=== PATIENT | female | born 1940 | race Caucasian/White ===

== ENCOUNTER 2022-02-06 10:40 | Emergency (ER) | payer MEDICARE, OTHER, SELFPAY ==
[2022-02-06 11:11] VITALS: BP 158/82; PULSE 75; RESP 24; TEMP 37.1; O2SAT 97; BMI 29.1
--- NOTE | 2022-02-06 11:29 | CRLHL7_ITS ---
For Patients: As a result of the Century Cures Act, medical imaging exams and procedure reports are released immediately into your electronic medical record. You may view this report before your referring provider. If you have questions, please contact your health care provider. Indication: Abdominal pain and constipation Technique: Two supine images of the abdomen Comparison: None Findings: Demineralized osseous structures. Degenerative changes of the spine. No significant calcifications. Nonspecific bowel gas pattern but no evidence of undo fecal retention, mechanical obstruction or obvious free air on this supine study Impression: Nonspecific bowel gas pattern no significant appearing findings by single view plain film radiography Dictated by Refugio Lima MD @ 02/06/2022 12:28:16 PM (Electronically Signed)
--- NOTE | 2022-02-06 11:32 | ED_ITS ---
HPI - Abdominal Pain General Chief Complaint: Abdominal Pain Stated Complaint: Bowel blockage, pain Time Seen by Provider: 02/06/22 11:21 Source: patient, family and RN notes reviewed History of Present Illness HPI narrative: 81-year-old woman presenting to the emergency department with complaint of increasing abdominal pain. She is accompanied by her . Had a right total knee replacement 3 weeks ago. She has been taking oxycodone. Has begun to have very small bowel movements over the last 4 days with increasing pain over the last 3 days. She would note pain actually is in the lower abdomen and she thinks she might have a urinary traction infection as well. She describes a burning pain in the lower abdomen. She is nauseated which she could vomit. She has tried a myriad bowel aids. Does not normally struggle with constipation. She has tried senna products, MiraLax, suppositories... She quit taking oxycodone yesterday. Does not feel she has increased pain. Asked about fever, she says she never gets a fever just sores in her mouth. She can not describe any exacerbating or relieving factors to her pain. She is restless and clearly very uncomfortable with pain which makes interview a little more challenging. Related Data Home Medications Medication Instructions Recorded Confirmed ondansetron HCl 4 mg tablet mg 02/06/22 oxycodone 5 mg tablet mg 02/06/22 potassium chloride 20 mEq meq PO 02/06/22 tablet,extended release(part/cryst) Previous Rx's Medication Instructions Recorded ondansetron HCl 4 mg tablet 4 mg PO DAILY PRN nausea and 02/06/22 vomiting #15 tabs Allergies Allergy/AdvReac Type Severity Reaction Status Date / Time acetaminophen [From Percocet] Allergy Mild itchy Verified 02/06/22 11:21 oxycodone [From Percocet] Allergy Mild itchy Verified 02/06/22 11:21 Review of Systems Status of ROS Reports: 10 or more systems reviewed and unremarkable except as noted in History and below [facility] Social History Smoking Status: Current every day smoker What tobacco products do you use: cigarettes Do you use any of these nicotine containing products: None Second hand tobacco smoke exposure: No How often do you have a drink containing alcohol: monthly or less How many standard drinks containing alcohol do you have on a typical day: 1 or 2 How often do you have six or more drinks on one occasion: Never AUDIT-C Alcohol total score: 1 Non-prescribed substance use: denies use Exam Narrative: Exam Narrative: She is pleasant. Appears younger than stated age. Distracted by pain. She shaking/trembling in apparent discomfort. Oropharynx is moist. There is a small cold sore the angle of her right side mouth. Neck is supple. Breathing easily and lungs appear to be clear. Cardiovascular with regular rate and rhythm. Abdomen with diminished bowel sounds. Is a little tender in the left upper abdomen. More tender across the low abdomen. No masses palpable. Abdomen is soft. There is no flank pain. Lower extremities are with mild dependent edema. The right knee looks to be healing very well withoutinflammatory changes. Const: Vital Signs, click to edit/add: Vital Signs - 24 hr 02/06/22 11:11 02/06/22 12:30 02/06/22 15:00 Temperature 98.7 F Pulse Rate [Left P ulse Oximeter] 75 68 69 Respiratory Rate 24 Blood Pressure [Le ft Upper Arm] 158/82 H 152/66 H 146/71 H Pulse Oximetry 97 96 97 Oxygen Delivery Me thod Room Air Room Air Room Air Documenting provider has reviewed patient's vital signs: yes Course Course Hospital Course: appears there may be more than constipation going on here. Will obtain labs. IV to be placed. Fluids and urinalysis. Providing pain medication. Abdominal x-ray with nonspecific bowel pattern and some stool but not convincing as a major source of pain as described. Reevaluation(s) Reevaluation #1: Overall improved. Able to sleep. Consultations Consultation #1: Spoke with OBGYN on-call with question of over the counter therapies that might alleviate vaginal symptoms in particular. Vital Signs Vital signs: Initial Vital Signs Temperature 98.7 F 02/06/22 11:11 Temperature Source Temporal Artery Scan 02/06/22 11:11 Pulse Rate 75 02/06/22 11:11 Pulse Rhythm 02/06/22 11:11 Respiratory Rate 24 02/06/22 11:11 Blood Pressure 158/82 H 02/06/22 11:11 Blood Pressure Mean 107 02/06/22 11:11 Blood Pressure Position Sitting 02/06/22 11:11 Pulse Oximetry 97 02/06/22 11:11 Oxygen Delivery Method 02/06/22 11:11 Vital Signs Temperature 98.7 F 02/06/22 11:11 Pulse Rate 75 02/06/22 11:11 Respiratory Rate 24 02/06/22 11:11 Blood Pressure 158/82 H 02/06/22 11:11 Pulse Oximetry 97 02/06/22 11:11 Oxygen Delivery Method 02/06/22 11:11 Temperature 98.7 F 02/06/22 11:11 Pulse Rate 69 02/06/22 15:00 Respiratory Rate 24 02/06/22 11:11 Blood Pressure 146/71 H 02/06/22 15:00 Pulse Oximetry 97 02/06/22 15:00 Oxygen Delivery Method 02/06/22 15:00 MDM - Abdominal Pain MDM Narrative Medical decision making narrative: Relatively normal labs. She in further questions describes more vaginal area burning. Has been thinking that maybe had a yeast infection though does not describe any vaginal discharge. Given degree of discomfort I would think that BV might be more likely. Proceeded with wet prep collection with nursing director of sales and marketing. This was extremely uncomfortable/painful for Ms. Cole. Vaginal mucosa did not look particularly atrophic but was definitely dry and collection produced a rather dry swab which ultimately was negative. Review again medications and complaints and wondering if perhaps the Vistaril that she has been taking with opiates has contributed to these symptoms, particularly vaginally, i.e. dryness bladder scan was minimal residual on post-void labs unremarkable with sl elev crp Medical Records Attestation: I reviewed the patient's medical records. Lab Data Attestation: I reviewed the patient's lab results. Labs: Lab Results 02/06/22 02/06/22 02/06/22 Range/Units 11:43 12:05 12:05 WBC 5.49 (4.50-11.00) K/uL RBC 3.92 L (4.00-5.20) m/uL Hgb 12.2 (12.0-16.0) gm/dL Hct 36.7 (33.0-51.0) % MCV 94 (80-100) fL MCH 31 (26-34) pg MCHC 33 (32-36) gm/dL RDW Coeff of Shira 12.4 (11.5-15.5) % Plt Count 337 (140-440) K/uL Neut % (Auto) 60.4 (42.0-72.0) % Lymph % (Auto) 28.1 (20-44) % [place] % (Auto) 9.3 (0.0-11.0) % Eos % (Auto) 1.8 (0.0-7.0) % Baso % (Auto) 0.4 (0.0-3.0) % Neut # (Auto) 3.32 (1.7-7.0) K/uL Lymph # (Auto) 1.54 (0.90-2.90) K/uL [place] # (Auto) 0.50 (0.00-0.90) K/UL Eos # (Auto) 0.10 (0.00-0.50) K/uL Baso # (Auto) 0.02 (0.00-0.30) K/uL Abs Immat Gran (auto) 0.00 (0.00-0.30) K/uL Sodium 134 L (135-149) mmol/L Potassium 3.4 L (3.6-5.1) mmol/L Chloride 97 (96-114) mmol/L Carbon Dioxide 29 (20-32) mmol/L BUN 10 (7-30) mg/dL Creatinine 0.9 (0.5-1.5) mg/dL Estimated Creat Clear 34.90 Estimated GFR 64 ml/min Glucose 96 (60-115) mg/dL Calcium 9.6 (8.4-10.6) mg/dL Total Bilirubin 1.0 (0.1-1.5) mg/dL AST 26 (12-35) U/L ALT 16 (4-35) U/L Alkaline Phosphatase 117 (40-150) U/L C-Reactive Protein 1.4 H (0.5-1.0) mg/dL Total Protein 6.6 (6.0-8.3) g/dL Albumin 4.1 (3.3-5.0) g/dL Urine Color Yellow (Yellow) Urine Appearance Clear (Clear) Urine pH 7.5 (5.0-8.5) Ur Specific [place] 1.020 (1.000-1.030) Urine Protein Negative (Negative) Urine Glucose (UA) Negative (Negative) Urine Ketones Negative (Negative) Urine Blood Trace-intact A (Negative) Urine Nitrite Negative (Negative) Urine Bilirubin Negative (Negative) Urine Urobilinogen 0.2 (0.2-1.0) Ur Leukocyte Esterase Negative (Negative) Urine RBC 0-2 (0-2) Urine WBC 2-5 (0-5) Ur Squamous Epith Cells Moderate A (None-Few) Urine Bacteria None (None) Vaginal Trichomonas (None Seen) Vaginal Yeast (None Seen) Vaginal Clue Cells (None Seen) 02/06/22 Range/Units 13:54 WBC (4.50-11.00) K/uL RBC (4.00-5.20) m/uL Hgb (12.0-16.0) gm/dL Hct (33.0-51.0) % MCV (80-100) fL MCH (26-34) pg MCHC (32-36) gm/dL RDW Coeff of Shira (11.5-15.5) % Plt Count (140-440) K/uL Neut % (Auto) (42.0-72.0) % Lymph % (Auto) (20-44) % [place] % (Auto) (0.0-11.0) % Eos % (Auto) (0.0-7.0) % Baso % (Auto) (0.0-3.0) % Neut # (Auto) (1.7-7.0) K/uL Lymph # (Auto) (0.90-2.90) K/uL [place] # (Auto) (0.00-0.90) K/UL Eos # (Auto) (0.00-0.50) K/uL Baso # (Auto) (0.00-0.30) K/uL Abs Immat Gran (auto) (0.00-0.30) K/uL Sodium (135-149) mmol/L Potassium (3.6-5.1) mmol/L Chloride (96-114) mmol/L Carbon Dioxide (20-32) mmol/L BUN (7-30) mg/dL Creatinine (0.5-1.5) mg/dL Estimated Creat Clear Estimated GFR ml/min Glucose (60-115) mg/dL Calcium (8.4-10.6) mg/dL Total Bilirubin (0.1-1.5) mg/dL AST (12-35) U/L ALT (4-35) U/L Alkaline Phosphatase (40-150) U/L C-Reactive Protein (0.5-1.0) mg/dL Total Protein (6.0-8.3) g/dL Albumin (3.3-5.0) g/dL Urine Color (Yellow) Urine Appearance (Clear) Urine pH (5.0-8.5) Ur Specific [place] (1.000-1.030) Urine Protein (Negative) Urine Glucose (UA) (Negative) Urine Ketones (Negative) Urine Blood (Negative) Urine Nitrite (Negative) Urine Bilirubin (Negative) Urine Urobilinogen (0.2-1.0) Ur Leukocyte Esterase (Negative) Urine RBC (0-2) Urine WBC (0-5) Ur Squamous Epith Cells (None-Few) Urine Bacteria (None) Vaginal Trichomonas No Trichomonas Seen (None Seen) Vaginal Yeast No Yeast Seen (None Seen) Vaginal Clue Cells No Clue Cells Seen (None Seen) Discharge Plan Discharge Clinical Impression: Vaginitis Patient Disposition: Home w/ Parent or Adult Condition: Improved Additional Instructions: Focus on hydration. It sounds like you have all you need to continue with management of your bowels. You might be mildly constipated. For further bowel cleanout, in addition to which have already been doing, could drink 1/2-1 bottle of magnesium citrate and repeat the next day if you do not have a significant result. You can take oxycodone still but consider avoiding Vistaril/hydroxyzine as this might be creating some of your vaginal problem. If you take oxycodone I would pair that with a senna containing product. Recommended vaginal product after discussing with OBGYN, is Refresh. This is also available [id number]. For uncontrolled pain, repeated vomiting, associated fever, you can return. Prescriptions: New ondansetron HCl 4 mg tablet 4 mg PO DAILY PRN (Reason: nausea and vomiting) Qty: 15 0RF No Action ondansetron HCl 4 mg tablet Label Comments: TAKE ONE TO TWO TABLETS BY MOUTH EVERY 8 HOURS NEEDED FOR NAUSEA potassium chloride 20 mEq tablet,ER particles/crystals PO Label Comments: TAKE ONE TABLET BY MOUTH EVERY DAY oxycodone 5 mg tablet Label Comments: TAKE 1 TO 2 TABLETS BY MOUTH 4 TO 6 HOURS NEEDED FOR PAIN. MAX 6 TABS/DAY Stand Alone Forms: [facility]
[2022-02-06 12:06] LABS: Appearance Urine Clear (Clear); Bilirubin Urine Negative (Negative); Blood Urine Trace-intact (Negative); Color Urine Yellow (Yellow); Glucose Urine Negative (Negative); Ketones Urine Negative (Negative); Leukocyte Esterase Urine Negative (Negative); Nitrite Urine Negative (Negative); Protein Urine Negative (Negative); Urobilinogen Urine 0.2 (0.2-1.0); pH Urine 7.5 (5.0-8.5)
[2022-02-06] MEDS: 0.9 % SODIUM CHLORIDE 1000 ml 1,000 ML IV (12:18)
[2022-02-06 12:20] LABS: Basophils Absolute Auto 0.02 K/uL (0.00-0.30); Basophils Percent Auto 0.4 % (0.0-3.0); Eosinophils Percent Auto 1.8 % (0.0-7.0); Hematocrit 36.7 % (33.0-51.0); Hemoglobin* 12.2 gm/dL (12.0-16.0); Lymphocytes Absolute Auto 1.54 K/uL (0.90-2.90); Lymphocytes Percent Auto 28.1 % (20-44); Mean Corpuscular HGB Conc 33 gm/dL (32-36); Mean Corpuscular Hemoglobin 31 pg (26-34); Mean Corpuscular Volume 94 fL (80-100); Monocytes Percent Auto 9.3 % (0.0-11.0); Neutrophils Absolute Auto 3.32 K/uL (1.7-7.0); Neutrophils Percent Auto 60.4 % (42.0-72.0); Platelet Count* 337 K/uL (140-440); RDW Coefficient of Variation % 12.4 % (11.5-15.5); Red Blood Count 3.92 m/uL (4.00-5.20); White Blood Count* 5.49 K/uL (4.50-11.00)
[2022-02-06] MEDS: ONDANSETRON 2 MG/ML inj 4 MG IVP (12:20)
[2022-02-06 12:22] LABS: Slide Review Reflex No
[2022-02-06 12:30] VITALS: BP 152/66; PULSE 68; O2SAT 96
[2022-02-06] MEDS: HYDROmorphone 0.5 mg/0.5 ml inj IVP (12:30)
[2022-02-06 12:43] LABS: RBC Urine 0-2 (0-2)
[2022-02-06 12:44] LABS: Squamous Epithelial Cell Urine Moderate (None-Few)
[2022-02-06 13:00] LABS: Albumin* 4.1 g/dL (3.3-5.0); Chloride* 97 mmol/L (96-114); Sodium* 134 mmol/L (135-149)
[2022-02-06 13:01] LABS: Potassium* 3.4 mmol/L (3.6-5.1)
[2022-02-06 13:03] LABS: Creatinine* 0.9 mg/dL (0.5-1.5); Estimated Glomerular Filt Rate 64 ml/min
[2022-02-06 13:04] LABS: Alanine Aminotransferase* 16 U/L (4-35); Alkaline Phosphatase* 117 U/L (40-150); Aspartate Amino Transferase* 26 U/L (12-35); Blood Urea Nitrogen* 10 mg/dL (7-30); Calcium* 9.6 mg/dL (8.4-10.6); Carbon Dioxide* 29 mmol/L (20-32); Glucose* 96 mg/dL (60-115); Total Protein* 6.6 g/dL (6.0-8.3)
[2022-02-06 13:06] LABS: C Reactive Protein* 1.4 mg/dL (0.5-1.0)
[2022-02-06 14:13] LABS: Clue Cells No Clue Cells Seen (None Seen); Trichomonas No Trichomonas Seen (None Seen); Yeast No Yeast Seen (None Seen)
[2022-02-06 15:00] VITALS: BP 146/71; PULSE 69; O2SAT 97
== END 2022-02-06 15:15 | disposition home or self-care (01) ==
PROVIDERS: Emergency Provider Family Medicine
DX: N76.0 Acute vaginitis (principal)
CPT/HCPCS: 36415; 74019; 80053; 81001; 85025; 86140; 87210; 96361; 96374; 96375; 99284; J1170; J2405; J7030

== ENCOUNTER 2022-02-13 10:10 | Emergency (ER) | payer MEDICARE, OTHER, SELFPAY ==
[2022-02-13 10:26] VITALS: PULSE 73; RESP 20; TEMP 36.9; O2SAT 97; BMI 28.7
[2022-02-13 10:53] LABS: Appearance Urine Clear (Clear); Bilirubin Urine Negative (Negative); Blood Urine Trace-intact (Negative); Color Urine Yellow (Yellow); Glucose Urine Negative (Negative); Ketones Urine Negative (Negative); Leukocyte Esterase Urine Negative (Negative); Nitrite Urine Negative (Negative); Protein Urine Negative (Negative); Specific Gravity Urine 1.015 (1.000-1.030); Urobilinogen Urine 0.2 (0.2-1.0); pH Urine 8.5 (5.0-8.5)
--- NOTE | 2022-02-13 10:53 | ED_ITS ---
HPI - General Adult General Time Seen by Provider: 10:53 Date Seen: 02/13/22 Chief complaint: Abdominal Pain Stated complaint: burning sensation in stomach Time Seen by Provider: 02/13/22 10:19 Source: patient and family History of Present Illness HPI narrative: Jennifer is a 81-year-old female past medical history includes cholecystectomy, PUD presents emergency department with family with abdominal pain. Patient was seen here for the same on 02/06, discharge diagnosis of vaginitis, she is not currently on any medications, she continues to have burning lower abdominal pain from her navel down to her suprapubic region. She has had associated nausea but no vomiting, she is eating last but drinking water. She denies any fevers or chills, no myalgias or arthralgias, patient has increased urinary frequency and dysuria, she denies any vaginal bleeding or vaginal discharge. There is no radiation of her pain. Pain has been constant the last week. He had a normal bowel movement this morning, she did not have any blood in the stool or diarrhea. No sick contacts. Family was more concerned that it could be an ulcer. Related Data Home Medications Medication Instructions Recorded Confirmed ondansetron HCl 4 mg tablet mg 02/06/22 oxycodone 5 mg tablet mg 02/06/22 potassium chloride 20 mEq meq PO 02/06/22 tablet,extended release(part/cryst) Previous Rx's Medication Instructions Recorded ondansetron HCl 4 mg tablet 4 mg PO DAILY PRN nausea and 02/06/22 vomiting #15 tabs Allergies Allergy/AdvReac Type Severity Reaction Status Date / Time acetaminophen [From Percocet] Allergy Mild itchy Verified 02/13/22 12:14 oxycodone [From Percocet] Allergy Mild itchy Verified 02/13/22 12:14 Review of Systems Status of ROS: Reports: 10 or more systems reviewed and unremarkable except as noted in History and below PFSH PFSH Social History Smoking Status: Current every day smoker What tobacco products do you use: cigarettes Smoking packs per day: 0.5 Smoking cigarettes per day: 10.0 Years smoked: 69 Smoking pack-years: 34.50 Do you use any of these nicotine containing products: None Second hand tobacco smoke exposure: No How often do you have a drink containing alcohol: monthly or less How many standard drinks containing alcohol do you have on a typical day: 1 or 2 How often do you have six or more drinks on one occasion: Never AUDIT-C Alcohol total score: 1 Non-prescribed substance use: denies use service: No Exam Narrative: Exam Narrative: General: No obvious distress sitting comfortably HEENT: Pupils equal round reactive to light, extraocular muscles intact, head is atraumatic Neck: Supple full range of motion Heart: Normal sinus rhythm S1-S2 Abdomen: Mild tenderness to palpation the lower abdomen and suprapubic region, bowel sounds hyperactive, no guarding no rebound Muscle skeletal: +5 strength upper lower extremities Neuro: Alert awake and oriented x3, gait within normal limits Const: Vital Signs, click to edit/add: Vital Signs - 24 hr 02/13/22 10:26 02/13/22 11:30 02/13/22 12:00 Temperature 98.5 F Pulse Rate [Pulse Oximeter] 73 59 L 67 Respiratory Rate 20 Blood Pressure [Le ft Upper Arm] 156/60 H 129/68 Pulse Oximetry 97 95 96 Oxygen Delivery Me thod Room Air 02/13/22 12:30 Temperature Pulse Rate [Pulse Oximeter] Respiratory Rate Blood Pressure [Le ft Upper Arm] 150/80 H Pulse Oximetry Oxygen Delivery Me thod Course Course Hospital Course: 10:30 AM: AIDET performed. vitals are stable. Workup will include IV peripheral, 500 mL bolus, 15 mg IV Toradol for pain, will obtain labs including CBC, CRP, CMP, lipase and urinalysis, patient had an XR abdomen decubitus and upright previously which showed a nonspecific bowel gas pattern. Likely obtain CT imaging. Patient and family in agreement Vital Signs Vital signs: Initial Vital Signs Temperature 98.5 F 02/13/22 10:26 Temperature Source Temporal Artery Scan 02/13/22 10:26 Pulse Rate 73 02/13/22 10:26 Pulse Rhythm 02/13/22 10:26 Respiratory Rate 20 02/13/22 10:26 Pulse Oximetry 97 02/13/22 10:26 Oxygen Delivery Method 02/13/22 10:26 Vital Signs Temperature 98.5 F 02/13/22 10:26 Pulse Rate 73 02/13/22 10:26 Respiratory Rate 20 02/13/22 10:26 Pulse Oximetry 97 02/13/22 10:26 Oxygen Delivery Method 02/13/22 10:26 Temperature 98.5 F 02/13/22 10:26 Pulse Rate 67 02/13/22 12:00 Respiratory Rate 20 02/13/22 10:26 Blood Pressure 150/80 H 02/13/22 12:30 Pulse Oximetry 96 02/13/22 12:00 Oxygen Delivery Method 02/13/22 10:26 Medical Decision Making Lab Data Labs: Lab Results 02/13/22 02/13/22 02/13/22 Range/Units 10:45 11:00 11:00 WBC 6.81 (4.50-11.00) K/uL RBC 4.13 (4.00-5.20) m/uL Hgb 12.9 (12.0-16.0) gm/dL Hct 38.8 (33.0-51.0) % MCV 94 (80-100) fL MCH 31 (26-34) pg MCHC 33 (32-36) gm/dL RDW Coeff of Shira 12.5 (11.5-15.5) % Plt Count 252 (140-440) K/uL Neut % (Auto) 65.1 (42.0-72.0) % Lymph % (Auto) 24.5 (20-44) % [place] % (Auto) 8.2 (0.0-11.0) % Eos % (Auto) 1.8 (0.0-7.0) % Baso % (Auto) 0.3 (0.0-3.0) % Neut # (Auto) 4.43 (1.7-7.0) K/uL Lymph # (Auto) 1.67 (0.90-2.90) K/uL [place] # (Auto) 0.60 (0.00-0.90) K/UL Eos # (Auto) 0.12 (0.00-0.50) K/uL Baso # (Auto) 0.02 (0.00-0.30) K/uL Abs Immat Gran (auto) 0.01 (0.00-0.30) K/uL Sodium 136 (135-149) mmol/L Potassium 4.0 (3.6-5.1) mmol/L Chloride 102 (96-114) mmol/L Carbon Dioxide 27 (20-32) mmol/L BUN 8 (7-30) mg/dL Creatinine 0.7 (0.5-1.5) mg/dL Estimated Creat Clear 34.90 Estimated GFR 87 ml/min Glucose 131 H (60-115) mg/dL Calcium 9.6 (8.4-10.6) mg/dL Total Bilirubin 0.8 (0.1-1.5) mg/dL AST 24 (12-35) U/L ALT 16 (4-35) U/L Alkaline Phosphatase 106 (40-150) U/L C-Reactive Protein 0.6 (0.5-1.0) mg/dL Total Protein 6.9 (6.0-8.3) g/dL Albumin 4.4 (3.3-5.0) g/dL Lipase 166 (23-300) U/L Urine Color Yellow (Yellow) Urine Appearance Clear (Clear) Urine pH 8.5 (5.0-8.5) Ur Specific [place] 1.015 (1.000-1.030) Urine Protein Negative (Negative) Urine Glucose (UA) Negative (Negative) Urine Ketones Negative (Negative) Urine Blood Trace-intact A (Negative) Urine Nitrite Negative (Negative) Urine Bilirubin Negative (Negative) Urine Urobilinogen 0.2 (0.2-1.0) Ur Leukocyte Esterase Negative (Negative) Urine RBC 0-2 (0-2) Urine WBC 0-2 (0-5) Ur Squamous Epith Cells Few (None-Few) Urine Bacteria None (None) Discharge Plan Discharge Clinical Impression: Thickened endometrium, Abdominal pain, lower Patient Disposition: Home, Self-Care Condition: Improved Instructions: Abdominal Pain (ED) Additional Instructions: Follow up appointment with Dr. Stuart at [facility] on Friday, February 18, 2022 at 8:15am, with arrival time at 8am. Prescriptions: No Action ondansetron HCl 4 mg tablet Label Comments: TAKE ONE TO TWO TABLETS BY MOUTH EVERY 8 HOURS NEEDED FOR NAUSEA potassium chloride 20 mEq tablet,ER particles/crystals PO Label Comments: TAKE ONE TABLET BY MOUTH EVERY DAY oxycodone 5 mg tablet Label Comments: TAKE 1 TO 2 TABLETS BY MOUTH 4 TO 6 HOURS NEEDED FOR PAIN. MAX 6 TABS/DAY ondansetron HCl 4 mg tablet 4 mg PO DAILY PRN (Reason: nausea and vomiting) Qty: 15 0RF Follow Up/Referrals: Provider,Not a Local [Primary Care Provider] - Stand Alone Forms: MyHealth Info Instructions
[2022-02-13 11:13] LABS: Basophils Absolute Auto 0.02 K/uL (0.00-0.30); Basophils Percent Auto 0.3 % (0.0-3.0); Eosinophils Absolute Auto 0.12 K/uL (0.00-0.50); Eosinophils Percent Auto 1.8 % (0.0-7.0); Hematocrit 38.8 % (33.0-51.0); Hemoglobin* 12.9 gm/dL (12.0-16.0); Immature Granulocytes Abs Auto 0.01 K/uL (0.00-0.30); Lymphocytes Absolute Auto 1.67 K/uL (0.90-2.90); Lymphocytes Percent Auto 24.5 % (20-44); Mean Corpuscular HGB Conc 33 gm/dL (32-36); Mean Corpuscular Hemoglobin 31 pg (26-34); Mean Corpuscular Volume 94 fL (80-100); Monocytes Percent Auto 8.2 % (0.0-11.0); Neutrophils Absolute Auto 4.43 K/uL (1.7-7.0); Neutrophils Percent Auto 65.1 % (42.0-72.0); Platelet Count* 252 K/uL (140-440); RDW Coefficient of Variation % 12.5 % (11.5-15.5); Red Blood Count 4.13 m/uL (4.00-5.20); White Blood Count* 6.81 K/uL (4.50-11.00)
[2022-02-13] MEDS: 0.9 % SODIUM CHLORIDE 500 ML 500 ML IV (11:15)
[2022-02-13] MEDS: KETOROLAC 15 MG/ML inj IVP (11:15)
[2022-02-13 11:18] LABS: RBC Urine 0-2 (0-2); WBC Urine 0-2 (0-5)
[2022-02-13 11:19] LABS: Squamous Epithelial Cell Urine Few (None-Few)
[2022-02-13 11:30] VITALS: BP 156/60; PULSE 59; O2SAT 95
[2022-02-13 11:30] LABS: Albumin* 4.4 g/dL (3.3-5.0); Chloride* 102 mmol/L (96-114); Sodium* 136 mmol/L (135-149)
[2022-02-13 11:32] LABS: Bilirubin Total* 0.8 mg/dL (0.1-1.5); Creatinine* 0.7 mg/dL (0.5-1.5); Estimated Glomerular Filt Rate 87 ml/min
[2022-02-13 11:33] LABS: Alkaline Phosphatase* 106 U/L (40-150); Aspartate Amino Transferase* 24 U/L (12-35); Blood Urea Nitrogen* 8 mg/dL (7-30); Carbon Dioxide* 27 mmol/L (20-32); Lipase* 166 U/L (23-300); Total Protein* 6.9 g/dL (6.0-8.3)
[2022-02-13 11:34] LABS: Alanine Aminotransferase* 16 U/L (4-35); Calcium* 9.6 mg/dL (8.4-10.6); Glucose* 131 mg/dL (60-115)
[2022-02-13 11:36] LABS: C Reactive Protein* 0.6 mg/dL (0.5-1.0)
--- OUTSIDE RECORDS SUMMARY | 2022-02-13 11:38 | XMS_ITS | Encounter Summary ---
:1940 Author Organization [facility] Address [address] [place] [id number] Care Team Providers Name Role Phone Francesco Bonner MD Unavailable Unavailable Anup Evans MD Primary Care Provider [facility] Unavailable [phone] Reason for Visit Reason Comments Chest tightness Encounter Details Date Type Department Care Team Description 11/20/2021 Office Visit [facility] Tomás Mendez G, Chest shruti n, unspecified type (Primary Dx); Health Internal ASCVD (arteriosclerotic cardiovascular d isease); [address] Coni fowler hypertension; [facility] 104 Anxiety disorder, unspecified type [address] [place] [address] Internal Med [facility] [address] [place] [id number] Social History Tobacco Use Types Packs/Day Years Used Date Smoking Tobacco: Every Day Cigarettes 1 60 Smokeless Tobacco: Never Alcohol Use Standard Drinks/Week Comments Yes 0 (1 standard drink = 0.6 oz pure alcoho l) Occasional Alcohol Habits Answer Date Recorded How often do you have a drink containing alcohol? Not asked How many drinks containing alcohol do you have on a typical Not asked day when you are drinking? How often do you have six or more drinks on one occasion? No t asked Comment: occasional 05/31/2009 Sex Assigned at Date Recorded Not on file COVID-19 Exposure Response Date Recorded In the last 10 days, have you been in contact with No / Unsu re 11/20/2021 8:57 AM CDT someone who was confirmed or suspected to have Coronavirus/COVID-19? documented as of this encounter Last Filed Vital Signs Vital Sign Reading Time Taken Comments Blood Pressure 124/72 11/20/2021 9:01 AM CDT Pulse 94 11/20/2021 9:01 AM CDT Temperature 36.9 ??C (98.4 ??F) 11/20/2021 9:01 AM CDT Respiratory Rate - - Oxygen Saturation 96% 11/20/2021 9:01 AM CDT Inhaled Oxygen Concentration - - Weight 75.3 kg (166 lb 1.6 oz) 11/20/2021 9:01 AM CDT Height - - Body Mass Index 30.88 05/23/2021 3:39 PM [employer] documented in this encounter Progress Notes Tomás Mendez MD - 11/20/2021 9:15 AM CDT [facility] CHIEF COMPLAINT: Chest pain HPI: This is a 81 y.o. female here for the above. Pt has had chest tightness and discomfort intermittently; denies any cp/sob currently or on exertion. H/o CAD and wants to make sure she's ok. Also states her BP was high at home but notes it has been ok here and taking meds as prescribed. Has been under more stress lately with family medical illnesses as well as her passing away last summer. No cough/fevers/ab pain/vomiting. Past medical history has been reviewed and updated in [facility] REVIEW OF SYSTEMS: 10-point review of systems is negative other than those listed in the HPI. PHYSICAL EXAM: Blood pressure 124/72, pulse 94, temperature 98.4 ??F (36.9 ??C), temperature source Tympanic, weight 75.3 kg (166 lb 1.6 oz), SpO2 96 %, not currently . General: No acute distress HEENT: Extraocular movements intact Cardiovascular: Regular rate and rhythm Lungs: Clear to auscultation bilaterally Abdomen: Soft/non-tender/non-distended Neurological: Normal coordination and gait Psych: Normal mood and affect Musculoskeletal: No pitting peripheral edema or tenderness ASSESSMENT: This is a 81 y.o. female with chest pain, CAD, htn, anxiety PLAN: 1. Chest pain- possibly due to situational anxiety/stress but could check an EKG or stress test given CAD history, however, pt declined any EKG today. Monitor si/sx and f/u 1-2 wks PRN or to the ER if si/sx worsening 2. CAD- continue to monitor si/sx as above and consider stress testing, EKG if not improving or to the ER if si/sx worsening 3. Htn- monitor BP at home and f/u if remains persistently elevated 4. Anxiety- situational and could go on a trial of zoloft if no improvement. F/u 1-2 wks PRN Tomás Mendez MD 11/20/2021 documented in this encounter Plan of Treatment Not on filedocumented as of this encounter Visit Diagnoses Diagnosis Chest pain, unspecified type - Primary ASCVD (arteriosclerotic cardiovascular d isease) Unspecified cardiovascular disease Essential hypertension Unspecified essential hypertension Anxiety disorder, unspecified type documented in this encounter Care Teams Pharmacist In Charge Owner Relationship Specialty Start Date End Date Anup Evans MD PCP - General Internal Medicine 02/23/[address] [place] [address] Dr Pérez [facility] [place] [address] [facility] PCP - Primary Care Clinic [address] [place] [address] DR PÉREZ [address] [place], [place] [address] [address] Francesco Bonner MD 08/11/13 documented as of this encounter
--- OUTSIDE RECORDS SUMMARY | 2022-02-13 11:38 | XMS_ITS | Encounter Summary ---
:1940 Author Organization [facility] Address [address] [place] [id number] Care Team Providers Name Role Phone Francesco Bonner MD Unavailable Unavailable Anup Evans MD Primary Care Provider [facility] [phone] Reason for Referral (Routine) - Open Specialty Diagnoses / Procedures Referred By Contact Refer red To Contact Diagnoses Pulmonary nodules Ground glass opacity present on imaging of lung Anup Evans MD Procedures CT CHEST LOW DOSE W/O CON [address] [place] [address] Dr Pérez [facility] Internal [place], [place] [address] Referral ID Status Reason Start Date Expiration Date Visits Requ ested Visits Authorized [id number] Open 10/07/2021 1 1 Reason for Visit (Routine) - Open Specialty Diagnoses / Procedures Referred By Contact Refer red To Contact Diagnoses Pulmonary nodules Ground glass opacity present on imaging of lung Anup Evans MD Procedures CT CHEST LOW DOSE W/O CON [address] [place] [address] Dr Berman Internal [place], [place] [address] Referral ID Status Reason Start Date Expiration Date Visits Requ ested Visits Authorized [id number] Open 10/07/2021 1 1 Encounter Details Date Type Department Care Team Description 10/02/2021 Hospital Encounter [facility] [address] [place] [address] Social History Tobacco Use Types Packs/Day Years [...] Assigned at Date Recorded Not on file documented as of this encounter Medications at Time of Discharge Medication Sig Dispensed Refills Start Date End Date lidocaine-prilocaine Apply to skin twice 30 g 1 2021 (EMLA) 2.5-2.5 % Top a day. To the knees cream cream as needed potassium chloride Take 1 tablet (20 90 tablet 3 05/23/2021 (K-DUR) 20 mEq oral mEq) by mouth once extended release tablet daily. rosuvastatin (CRESTOR) 20 Take 1 tablet (20 90 tablet 3 mg oral tablet mg) by mouth once daily. triamterene-hydrochloroth TAKE 1 TABLET BY 90 tablet 3 05/03 iazide (MAXZIDE) 37.5-25 MOUTH EVERY DAY mg oral tablet albuterol sulfate Nebulize 3 mL (0.63 1 Box 3 2 01/09/2022 (PROVENTIL;VENTOLIN) 0.63 mg) three times a mg/3 mL Inhl nebulizer day. solution documented as of this encounter Plan of Treatment Not on filedocumented as of this encounter Procedures Procedure Name Priority Date/Time Associated Diagnosis Comme nts CT CHEST LOW DOSE Routine 10/02/2021 9:13 AM Pulmonary n odules Results for this W/O CON CDT Ground glass opacity procedu re are in present on imaging the resul ts of lung section. documented in this encounter Results CT (MDIP) CHEST LUNG NODULE - FOLLOW-UP (10/02/2021 9:13 AM CDT) Anatomical Region Laterality Modality Chest Computed Tomography Specimen (Source) Anatomical Collection Method Collection Time Re ceived Time Location / / Volume Laterality 10/02/2021 9:19 AM CDT Impressions 10/02/2021 9:22 AM CDT IMPRESSION: 1. ??Previously noted ill-defined nodula r opacities at the posterior right lung apex and groundglass opacity at the left lung base have resolved. 2. ??Indeterminate groundglass opacities in the right upper lobe, as described above, are similar to the previous study of 07/05/2021. 3. ??Tiny nodule at the lateral left moriah g base is unchanged from 07/05/2021. 4. ??No new lung opacities or nodules ar e seen. REPORT SIGNED BY DR. Gordy Payne Narrative 10/02/2021 9:22 AM CDT EXAM: CT CHEST LOW DOSE (without contrast) ?? DATE: 10/02/2021 9:03 AM COMPARISON: 07/05/2021 CLINICAL DATA: Lung opacities and nodule s. ADDITIONAL CLINICAL DATA: R91.8 Other no nspecific abnormal finding of lung field R91.8 Other nonspecific abnormal finding of lung field TECHNIQUE: A low-dose unenhanced CT scan of the thorax was performed. ??Specifically, thin-section contiguous transaxial images were obtained through the thorax. ??Coronal reformations were also obtaine d through the thorax. ??No intravenous c ontrast was given. Reduced mA and kV were used to lower the radiation dose absorbed by the patient. FINDINGS: Previously noted ill-defined nodularity at the posterolateral right lung apex has resolved. Previously noted groundglass opacity laterally at the left lung base has resolved. Indeterminate groundglass opacity barrel inspector omedially in the right upper lobe measures 14 x 10 mm. This measured 16 x 10 mm on the previous exam. Indeterminate groundglass opacity at the posterolateral medi al right lung apex now measures 10 x 9 m m, previously 12 x 6 mm. 2 mm nodule at the lateral left lung base is unchanged. No new lung opacities or nodules are identified. Limited assessment of the mediastinal, h ilar, and vascular structures without intravenous contrast. Small right paratracheal lymph nodes are stable. Coronary artery calcifications again indicate coronar y artery disease. Atherosclerotic change s are again seen in a nondilated thoracic aorta. Procedure Note Gordy Payne MD - 10/02/2021Forma tting of this note might be different from the original. EXAM: CT CHEST LOW DOSE (without contras t) DATE: 10/02/2021 9:03 AM COMPARISON: 07/05/2021 CLINICAL DATA: Lung opacities and nodule s. ADDITIONAL CLINICAL DATA: R91.8 Other no nspecific abnormal finding of lung field R91.8 Other nonspecific abnormal finding of lung field TECHNIQUE: A low-dose unenhanced CT scan of the thorax was performed. Specifically, thin-section contiguous transaxial images were obtained through the thorax. Coronal reformations were also obtained through the thorax. No intravenous contrast was give n. Reduced mA and kV were used to lower the radiation dose absorbed by the patient. FINDINGS: Previously noted ill-defined nodularity at the posterolateral right lung apex has resolved. Previously noted groundglass opacity laterally at the left lung base has resolved. Indeterminate groundglass opacity barrel inspector omedially in the right upper lobe measures 14 x 10 mm. This measured 16 x 10 mm on the previous exam. Indeterminate groundglass opacity at the posterolateral medial right lung apex now measures 10 x 9 mm, previously 12 x 6 mm. 2 mm nodule at the lateral left lung base is unchanged. No new lung opacities or nodules are identified. Limited assessment of the mediastinal, h ilar, and vascular structures without intravenous contrast. Small right paratracheal lymph nodes are stable. Coronary artery calcifications again indicate coronary artery disease. Atherosclerotic changes are aga in seen in a nondilated thoracic aorta. IMPRESSION IMPRESSION: 1. Previously noted ill-defined nodular opacities at the posterior right lung apex and groundglass opacity at the left lung base have resolved. 2. Indeterminate groundglass opacities i n the right upper lobe, as described above, are similar to the previous study of 07/05/2021. 3. Tiny nodule at the lateral left lung base is unchanged from 07/05/2021. 4. No new lung opacities or nodules are seen. REPORT SIGNED BY DR. 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
--- OUTSIDE RECORDS SUMMARY | 2022-02-13 11:38 | XMS_ITS | Encounter Summary ---
:1940 Author Organization [facility] Address [address] [place] [address] Care Team Providers Name Role Phone Francesco Bonner MD Unavailable Unavailable Yuli Watkins MD Primary Care Provider [facility] Unavailable [phone] Reason for Visit Reason Comments Pre Op exam Encounter Details Date Type Department Care Team Description 01/09/2022 Office Visit [facility] Yuli Watkins MD Preop examination (Primary Dx); Internal Medicine - [address] [place] [address] Dr Jos hodgson of right knee; [facility] 104 Essential hypertension; [address] [place] [address] Internal [facility] icine Hypercholesterolemia; [facility] [address] [place], [place] Asymmetric blood pressures; [place], [place] [phone] Tobacco use disorder; [phone] (Wo rk) PAD (peripheral artery disease) ([facility]) Social History Tobacco Use Types Packs/Day Years Used Date Smoking Tobacco: Every Day Cigarettes Smokeless Tobacco: Never Tobacco Cessation: Ready to Quit: Not As ked; Counseling Given: Not Answered Comments: 1/4 PPD Alcohol Use Standard Drinks/Week Comments Yes 0 (1 standard drink = 0.6 oz pure alcoho l) Infrequent Alcohol Habits Answer Date Recorded How often do you have a drink containing alcohol? Not asked How many drinks containing alcohol do you have on a typical Not asked day when you are drinking? How often do you have six or more drinks on one occasion? No t asked Comment: Infrequent 01/09/2022 Sex Assigned at Date Recorded Not on file COVID-19 Exposure Response Date Recorded In the last 10 days, have you been in contact with No / Unsu re 01/09/2022 9:26 AM CDT someone who was confirmed or suspected to have Coronavirus/COVID-19? documented as of this encounter Last Filed Vital Signs Vital Sign Reading Time Taken Comments Blood Pressure 128/74 01/09/2022 9:34 AM CDT Pulse 80 01/09/2022 9:34 AM CDT Temperature 36.7 ??C (98.1 ??F) 01/09/2022 9:34 AM CDT Respiratory Rate - - Oxygen Saturation - - Inhaled Oxygen Concentration - - Weight 74 kg (163 lb 1.6 oz) 01/09/2022 9:34 AM CDT Height 157.5 cm (5' 2) 01/09/2022 9:34 AM CDT Body Mass Index 29.83 01/09/2022 9:34 AM CDT documented in this encounter H&P Notes Yuli Watkins MD - 01/09/2022 9:45 AM CDT Images from the original note were not included. Preoperative History and Physical Examination Date of Exam: 01/09/22 Proposed Surgery: Right total knee arthroplasty Surgeon: Harley Date of Surgery: 01/14/2022 Location of Surgery: [facility] History: The patient is seen in preoperative evaluation for the above procedure. She has significantarthritis involving the right knee. She has been quite limited due to pain. Review of systems: The patient has had no chest pains. There have been no respiratory concerns. There have been no fevers, chills, or sweats. Other than what has been noted above, the comprehensive review of systems is otherwise negative. ACTIVE PROBLEM LIST: Diagnosis Osteopenia 07/24 S-1.0 H-2.0 (Frax 16%, 7%) Subclavian arterial stenosis (HCC) 06/25/21 US: Moderate to severe (>50%) RIGHT subclavian artery stenosis (difficult visualization). DDD (degenerative disc disease), lumbar ASCVD (arteriosclerotic cardiovascular disease) 05/07/17 CORONARY ANATOMY: Right Dominant. LEFT MAIN: The left main was minimally diseased and bifurcated into the left anterior descending and circumflex. LEFT ANTERIOR DESCENDING: Diffuse mixed calcified and noncalcified plaque throughout the proximal and mid left anterior descending with mild stenosis. The remainder of the left anterior descending was normal. FIRST DIAGONAL: Patent, small. SECOND DIAGONAL: Patent, small. THIRD DIAGONAL: Mildly diseased, large. CIRCUMFLEX: Mild proximal disease. Mild disease prior to a large patent first obtuse marginal, which was the major vessel to the lateral wall. The AV groove circumflex was small afterwards. RIGHT CORONARY ARTERY: Dominant. Mild proximal through distal nonobstructive disease. Small patent RPDA. Larger patent RPL branches. The calcium score was 188.5 (left anterior descending 89.4, circumflex 20.9, right coronary artery 78.2). This placed the patient in the 67th percentile Pulmonary nodules 05/07/17 5 x 3 mm pulmonary nodule in the inferior right middle lobe (new from 09/13) 12/02/17 CT There are two 7 mm groundglass opacities in the right upper lobe which are new since priorCT. The 12 and 13 mm groundglass opacities in the right upper lobe are grossly unchanged compared toprior exam in retrospect. There are scattered 2-3 mm solid pulmonary nodules seen in both lungs which are relatively stable. 03/10/18 groundglass opacities persist 06/18/18 Each of the pulmonary nodules and groundglass opacities reported on the prior examinations are stable when compared to exams dating back to December 02, 2017.. One or more of these subtle groundglass opacities were not definitely seen in 2013. Based on published guidelines yearly follow-up to confirm stability for 4 years is recommended. 07/05/21 CT: New 6 x 8 mm groundglass opacity in the left lower lobe. This may be infectious or inflammatory. 10/02/21 CT: Previously noted ill-defined nodular opacities at the posterior right lung apex and groundglass opacity at the left lung base have resolved. Indeterminate groundglass opacities in the right upper lobe, as described above, are similar to the previous study of 07/05/2021. Tiny nodule at the lateral left lung base is unchanged from 07/05/2021. No new lung opacities or nodules are seen. Hypercholesterolemia Asymmetric blood pressures L>R (Check BP on left arm) PAD (peripheral artery disease) ([facility]) 12/13 Study reveals the following: There is a differential blood pressure between the patient's leftbrachial artery and right brachial artery with a pressure of 143 on the left compared to 89 on the right. ABIs at the level of the thigh, calf, ankle, over the posterior tibial artery and dorsalis pedis are normal bilaterally. ABIs do not decrease with exercise suggesting normal arterial supply to both lower extremities. Essential hypertension Tobacco use disorder Past Surgical History: Procedure Laterality Date HX BACK SURGERY Right 2014 L5-S1 hemilaminectomy + discectomy HX BREAST SURGERY Right 1996 Cyst resection HX CHOLECYSTECTOMY 1971 HX LUMBAR LAMINECTOMY 2016 L5-S1 Family History Problem Relation Name Age of Onset Diabetes Mother Stroke Mother Heart Disease Father Alcohol Abuse Father Alcohol Abuse Sister No Known Problems Sister No Known Problems Sister No Known Problems Sister No Known Problems Sister No Known Problems Sister Other Disease Brother Suicide Kidney Cancer Brother Cancer Brother No Known Problems Brother No Known Problems Brother Breast Cancer Daughter Cancer Daughter Kidney Disease Daughter Other Disease Son Hepatitis Heart Disease Son No Known Problems Son No Known Problems Son No Known Problems Son Social History Tobacco Use Smoking status: Every Day Types: Cigarettes Smokeless tobacco: Never Tobacco comments: 06/05 PPD Substance Use Topics Alcohol use: Yes Comment: Infrequent Current Outpatient Medications: Medication Sig lidocaine-prilocaine (EMLA) 2.5-2.5 % Top cream cream Apply to skin twice a day. To the knees as needed potassium chloride (K-DUR) 20 mEq oral extended release tablet Take 1 tablet (20 mEq) by mouth oncedaily. rosuvastatin (CRESTOR) 20 mg oral tablet Take 1 tablet (20 mg) by mouth once daily. triamterene-hydrochlorothiazide (MAXZIDE) 37.5-25 mg oral tablet TAKE 1 TABLET BY MOUTH EVERY DAY Allergies Allergen Reactions Atorvastatin Percocet [Oxycodone-Acetaminophen] Itching Severe itching PHYSICAL EXAM: BP 128/74 Pulse 80 Temp 98.1 ??F (36.7 ??C) (Oral) Ht 1.575 m (5' 2) Wt 74 kg (163 lb 1.6 oz) BMI 29.83 kg/m?? General: The patient is pleasant and interactive. Speech is fluent. HEENT exam is unremarkable. Heart tones are regular. There are no significant cardiac murmurs. There are no carotid bruits. Pedal pulses are palpable. Lung sounds are clear. There is normal respiratory effort. Abdomen is benign with positive bowel sounds. There is no significant lower extremity edema. Visualized skin is clear. There are no focal neurologic findings. ECG 01/09/22 IMPRESSION: 1. Preop examination 2. Arthritis of right knee 3. Essential hypertension 4. Hypercholesterolemia 5. Asymmetric blood pressures 6. Tobacco use disorder 7. PAD (peripheral artery disease) ([facility]) PLAN: The patient has significant arthritis involving the right knee requiring surgery. She will be undergoing total knee arthroplasty. She has hypertension. Blood pressure is well controlled. She will continue same antihypertensive medication. She has hypercholesterolemia. She has been doing well with rosuv astatin. She will continue same antihyperlipidemic medication. She has been experiencing no cardiac or respiratory concerns. She continues to use tobacco products. She smokes 1/4 pack of cigarettes perday. She is encouraged to pursue tobacco cessation. She has peripheral artery disease notable with subclavian arterial stenosis and she has asymmetric blood pressures. Is recommended to check blood pressure in the left upper extremity. ECG obtained today demonstrates normal sinus rhythm with a ventricular rate of 71. Intervals and axis are within normal limits. There are no ST-T wave abnormalities. She will abstain from aspirin, aspirin containing products, NSAIDs, and fish oil prior to the procedure. Laboratory studies obtained include CBC, electrolytes, BUN/creatinine, and COVID test. I see no contraindication and she is medically optimized to proceed with procedure as scheduled. documented in this encounter Plan of Treatment Not on filedocumented as of this encounter Procedures Procedure Name Priority Date/Time Associated Diagnosis Comme nts SARS-COV-2, PCR 2 DAY Routine 01/09/2022 10:24 Preop examinati on Results for this TAT ([facility]) AM CDT procedure are in the results section. SARS-COV-2 PCR Routine 01/09/2022 10:24 Preop examination Resu lts for this ([facility]) AM CDT procedure are i n the results section. ELECTROLYTE PANEL Routine 01/09/2022 10:24 Preop examination R esults for this ([facility]) AM CDT procedure are i n the results section. CBC/PLATELET, NO Routine 01/09/2022 10:24 Preop examination Re sults for this DIFFERENTIAL AM CDT procedure are i n ([facility]) the results section. BUN/CREATININE Routine 01/09/2022 10:24 Preop examination Resu lts for this ([facility]) AM CDT procedure are i n the results section. EKG WITH Routine 01/09/2022 10:09 Preop examination Result s for this INTERPRETATION/REPORT AM CDT proced ure are in the results section. documented in this encounter Results SARS-COV-2, PCR 2 DAY TAT ([facility]) (01/09/2022 10:24 AM CDT) Analysis Performed At [facility] logist Time Signature SARS-CoV-2 PCR Performed 01/10/2022 [facility] OF 2 Day TAT 11:06 PM CDT PHY[facility] ([facility]) Specimen Anatomical Collection Method Collection Time Receive d Time (Source) Location / / Volume Laterality Nasal 01/09/2022 10:24 01/09/2022 AM CDT 10:25 AM CDT Narrative [facility] - 01/10/2022 11:06 PM CDT Performed at: ??02 - [address] ??[id number] [place] Lifeguard: Elia Grove MD, Phone: ?? [phone] Yuli Watkins MD [facility] ORDERABLES Performing Organization Address City/State/ZIP Code Phon e Number [facility] [place] [address] [place] [address] SARS-COV-2 PCR ([facility]) (01/09/2022 10:24 AM CDT) [facility] gist Method Time Signature SARS-CoV-2, Not Detected Not Detected 01/10/2022 [facility] [place]AHI ([facility]) 11:06 PM CDT [facility] Comment: This nucleic acid amplification test was developed and its performance characteristics determined by [facility] Rosa padgett. Nucleic acid amplification tests include RT-PCR and T MA. This test has not been FDA cleared or approved. This test has b een authorized by FDA under an Emergency Use Authorization (EUA). Th is test is only authorized for the duration of time the declaration that circumstances exist justifying the authorization of the [facility] use of in vitro diagnostic tests for detection of SARS-C oV-2 virus and/or diagnosis of COVID-19 infection under section 564( b)(1) of the Act, 21 U.S.C. 360bbb-3(b) (1), unless the authorizatio n is terminated or revoked sooner. When diagnostic testing is negative, the possibility of a false negative result should be considered in the context of a patient's recent exposures and the presence of cli nical signs and symptoms consistent with COVID-19. An individual without symptoms of COVID-19 and who is not shedding SARS-CoV-2 virus would expect to have a negative (not detected) result in this a ssay. Specimen Anatomical Collection Method Collection Time Receive d Time (Source) Location / / Volume Laterality Nasal 01/09/2022 10:24 01/09/2022 AM CDT 10:25 AM CDT Narrative [facility] - 01/10/2022 11:06 PM CDT Performed at: ??01 - [facility] ??[id number] [place]uard: Elia Grove MD, Phone: ?? [phone] Yuli Watkins MD [facility] ORDERABLES Performing Organization Address City/State/ZIP Code Phon e Number [facility] [place] [address] [place] [address] [phone] (ABNORMAL) BUN/CREATININE ([facility]) (01/09/2022 10:24 AM CDT) athologist Signature BUN ([facility]) 12 8 - 27 01/10/2022 [facility] mg/dL 7:13 AM CDT [facility] Creatinine 0.97 0.57 - 01/10/2022 [facility] OF ([facility]) 1.00 mg/dL 7:13 AM CDT [facility] eGFR ([facility]) 59 (L) >59 01/10/2022 [facility] OF mL/min/1.7 7:13 AM CDT [facility] 3 BUN/Creatinine 12 12 - 28 01/10/2022 [facility] OF Ratio ([facility]) 7:13 AM CDT [facility] Specimen Anatomical Collection Method / Collection Time Recei lisa Time (Source) Location / Volume Laterality Blood Venipuncture / 01/09/2022 10:24 2 Unknown AM CDT 10:25 AM CDT Narrative [facility] - 01/10/2022 7:13 AM CDT Performed at: ??01 - [facility] [address] ??[id number] [place]eguard: Elia Grove MD, Phone: ?? [phone] Yuli Watkins MD [facility] ORDERABLES Performing Organization Address City/[facility]/ZIP Code Phon e Number [facility] [place] [address] [place] [address] [phone] ELECTROLYTE PANEL ([facility]) (01/09/2022 10:24 AM CDT) P athologist Signature Sodium 140 134 - 144 01/10/2022 [facility] OF ([facility]) mmol/L 7:13 AM CDT [facility] Potassium 4.4 3.5 - 5.2 01/10/2022 [facility] OF ([facility]) mmol/L 7:13 AM CDT [facility] Chloride 101 96 - 106 01/10/2022 [facility] OF ([facility]) mmol/L 7:13 AM CDT [facility] Carbon Dioxide 24 20 - 29 01/10/2022 [facility] OF ([facility]) mmol/L 7:13 AM CDT [facility] Specimen Anatomical Collection Method / Collection Time Recei lisa Time (Source) Location / Volume Laterality Blood Venipuncture / 01/09/2022 10:24 2 Unknown AM CDT 10:25 AM CDT Narrative [facility] - 01/10/2022 7:13 AM CDT Performed at: ??01 - [facility] [address] ??[id number] [place]uard: Elia Grove MD, Phone: ?? [phone] Yuli Watkins MD [facility] ORDERABLES Performing Organization Address City/[facility]/ZIP Code Phon e Number [facility] [place] [address] [place] [address] CBC/PLATELET, NO DIFFERENTIAL ([facility]) (01/09/2022 10:24 AM CDT) P athologist Signature WBC ([facility]) 6.5 3.4 - 10.8 01/10/2022 [facility] OF x10E3/uL 7:13 AM CDT [facility] RBC ([facility]) 4.66 3.77 - 01/10/2022 [facility] OF 5.28 7:13 AM CDT [facility] x10E6/uL Hemoglobin 15.0 11.1 - 01/10/2022 [facility] OF ([facility]) 15.9 g/dL 7:13 AM CDT [facility] Hematocrit 45.0 34.0 - 01/10/2022 [facility] OF ([facility]) 46.6 % 7:13 AM CDT [facility] MCV ([facility]) 97 79 - 97 fL 01/10/2022 [facility] OF 7:13 AM CDT [facility] MCH ([facility]) 32.2 26.6 - 01/10/2022 [facility] OF 33.0 pg 7:13 AM CDT [facility] MCHC ([facility]) 33.3 31.5 - 01/10/2022 [facility] OF 35.7 g/dL 7:13 AM CDT [facility] RDW ([facility]) 12.3 11.7 - 01/10/2022 [facility] OF 15.4 % 7:13 AM CDT [facility] Platelets 202 150 - 450 01/10/2022 [facility] OF ([facility]) x10E3/uL 7:13 AM CDT [facility] Specimen Anatomical Collection Method / Collection Time Recei lisa Time (Source) Location / Volume Laterality Blood Venipuncture / 01/09/2022 10:24 2 Unknown AM CDT 10:25 AM CDT Narrative [facility] - 01/10/2022 7:13 AM CDT Performed at: ??01 - [facility] [address] ??[id number] [place]ard: Elia Grove MD, Phone: ?? [phone] Yuli Watkins MD [facility] ORDERABLES Performing Organization Address City/State/ZIP Code Phon e Number [facility] [place] [address] [place] [address] EKG WITH INTERPRETATION/REPORT (01/09/2022 10:09 AM CDT) P athologist Signature EKG [facility] Comment: ? [facility] ? Test Date: ?2022-01-09 Pat Name: ? ALEXCarlos KIRK ?Department: ?? [facility] ?Room: ? Gender: ? F ?Logging Assistant: ?? MZ : ?1940 ? Requested By: YULI WATKINS MD Order Number: [id number] ?Reading MD: ?? Yuli Watkins MD ? Measurements Intervals ?[place] ? Rate: ? 71 ? P: ?63 DE: ? 183 ?QRS: ?-12 QRSD: ? 99 ? T: ?46 QT: ? 381 ? QTc: ?416 ? Interpretive Statements SINUS RHYTHM Compared to ECG 04/10/2021 No significant change Electronically Signed On 01-09-2022 10:13 :54 CDT by Yuli Watkins MD Specimen (Source) Anatomical Collection Method Collection Time Re ceived Time Location / / Volume Laterality 01/09/2022 10:09 AM CDT Narrative This result has an attachment that is no t available. Yuli Watkins MD CARDIO ORDERABLE Performing Organization Address City/State/ZIP Code Phon e Number I JARROD [address] [facility] No [place] [address] documented in this encounter Visit Diagnoses Diagnosis Preop examination - Primary Preoperative examination, unspecified Arthritis of right knee Unspecified arthropathy, lower leg Essential hypertension Unspecified essential hypertension Hypercholesterolemia Pure hypercholesterolemia Asymmetric blood pressures Other abnormal clinical finding Tobacco use disorder PAD (peripheral artery disease) (HCC) Peripheral vascular disease, unspecified documented in this encounter Care Teams Stage Hand Relationship Specialty Start Date End Date Yuli Watkins MD PCP - General Internal Medicine 02/23/[address] [place] [address] Dr Pérez [address] Internal Medicine [place] [address] Chauncey Bill PCP - [facility] [address] [place] [address] DR PÉREZ [address] [place] [address] Francesco Bonner MD 08/11/13 documented as of this encounter
--- OUTSIDE RECORDS SUMMARY | 2022-02-13 11:38 | XMS_ITS | Encounter Summary ---
:1940 Author Organization [facility] Address [address] [place] [address] Care Team Providers Name Role Phone Francesco Bonner MD Unavailable Unavailable Anup Evans MD Primary Care Provider [facility] [phone] Encounter Details Date Type Department Care Team Description 11/16/2021 Travel Social History Tobacco Use Types Packs/Day Years [...] in contact with No / Unsu re 11/16/2021 11:36 AM CDT someone who was confirmed or suspected to have Coronavirus/COVID-19? documented as of this encounter Plan of Treatment Not on filedocumented as of this encounter Visit Diagnoses Not on filedocumented in this encounter Care Teams Boomswing Operator Relationship Specialty Start Date End Date Anup Evans MD PCP - General Internal Medicine 02/23/[address] [place] [address] Dr Pérez [facility] [place] [address] Chauncey Bill PCP - Primary Care Clinic [address] [place] [address] [place] [address] Francesco Bonner MD 08/11/13 documented as of this encounter
--- OUTSIDE RECORDS SUMMARY | 2022-02-13 11:38 | XMS_ITS | Clinical Summary ---
:1940 Author Organization [email or web address] Address [place] [address] Care Team Providers Name Role Phone Anup Evans MD Primary Care Provider Allergies Active Allergy Reactions Severity Noted Date Comments Atorvastatin Edema Low 02/04/2017 Oxycodone-Acetaminophen Itching Medium 05/06/2016 Christina re itching Unknown-Follow Up *Unknown - Follow up Unknown 05/28/2006 un known oral pain med Needed (Include Details needed , un sure of the In Comments) reaction pt sta letty NO issues with medications she is aware of Medications Medication Sig Dispensed Refills Start End Date Status Date triamterene-hydro Take 1 tablet by 0 Active chlorothiazide, mouth every 37.5-25 mg, morning. (MAXZIDE-25) 37.5-25 mg tablet potassium Take 20 mEq by 0 Activ e chloride (K-DUR) mouth once daily. 20 mEq Extended-Release tablet rosuvastatin Take 20 mg by 0 Act josé luis (CRESTOR) 20 mg mouth at bedtime. tablet acetaminophen Take 2 Tablets 100 Tablet 1 Active (TYLENOL EXTRA (1,000 mg) by 2 STRGTH) 500 mg mouth 3 times tabletIndications daily. Max : S/P total knee acetaminophen arthroplasty, dose: 4000mg in right 24 hrs. aspirin (ECOTRIN) Take 1 Tablet (81 60 Tablet 0 Active 81 mg enteric mg) by mouth 2 2 coated times daily with tabletIndications meals. : Deep vein thrombosis (DVT) prophylaxis prescribed at discharge oxyCODONE Take 1-2 Tablets 35 Tablet 0 Act josé luis (ROXICODONE) 5 mg (5-10 mg) by 2 immediate release mouth every 4 tabletIndications hours if needed : S/P total knee for Pain (For arthroplasty, moderate pain. right Hold dose if sedated. up to 2, tid prn x 7 days). sennosides-docusa Take 1-2 Tablets 50 Tablet 1 Active te (SENOKOT S) by mouth 2 times 2 (8.6-50 mg) daily. tabletIndications : Constipation due to opioid therapy HYDROcodone-aceta Take 1 to 2 40 tablet 0 01/16/20 Discontinued minophen, 5-325 tablets by mouth 6 22 (*IP mg, (NORCO) per every 4 hours if Discontinued) tabletIndications needed for : S/P lumbar moderate to laminectomy severe pain. Max acetaminophen dose: 4000 mg in 24 hrs. Active Problems Problem Noted Date Essential hypertension 01/15/2022 Overview: Triamterene and hydrochlorothiazide Hyperlipidemia 01/15/2022 Overview: Rosuvastatin Osteoarthritis of right knee 01/10/2022 Overview: 01/14/2022 Right Total Knee Arthroplasty Subclavian artery stenosis, right 12/01/2013 Lumbar disc herniation 09/03/2013 Encounters Date Type Specialty Care Team Description 01/15/2022 Hospital Encounter Moises Souza MD 01/14/2022 Anesthesia Event Brendan Gallegos MD [place], Merle [place], [facility] 01/14/2022 Surgery Moises Souza Right Total Kn ee MD Poli Arthroplasty 01/14/2022 - Hospital Encounter Moises Souza S/P tota l knee arthroplasty, right (Primary Dx); 01/15/2022 MD Poli Deep vein thrombosis (DVT) prophylaxis p rescribed at discharge; Josafat Garduno Constipation d ue to opioid therapy MD Emre Cardona Lon Bradley, MD 01/14/2022 Travel from Last 3 Months Family History Medical History Relation Name Comments Diabetes Mother Stroke Mother Relation Name Status Comments Mother Social History Tobacco Use Types Packs/Day Years Used Date Current Every Day Smoker Cigarettes 1 50 Smokeless Tobacco: Never Used Alcohol Use Standard Drinks/Week Comments No 0 (1 standard drink = 0.6 oz pure alcoho l) Sex Assigned at Date Recorded Not on file COVID-19 Exposure Response Date Recorded In the last 10 days, have you been in contact with No / Unsu re 01/14/2022 5:28 AM CDT someone who was confirmed or suspected to have Coronavirus/COVID-19? Obstetrics History Last Filed Vital Signs Vital Sign Reading Time Taken Comments Blood Pressure 138/53 01/15/2022 12:40 PM CDT Pulse 73 01/15/2022 12:40 PM CDT Temperature 36.7 ??C (98.1 ??F) 01/15/2022 12:40 PM CDT Respiratory Rate 16 01/15/2022 12:40 PM CDT Oxygen Saturation 94% 01/15/2022 12:40 PM CDT Inhaled Oxygen Concentration - - Weight 73.9 kg (163 lb) 01/10/2022 1:25 PM CDT Height 157.5 cm (5' 2) 01/10/2022 1:25 PM CDT Body Mass Index 29.81 01/10/2022 1:25 PM CDT Plan of Treatment Health Maintenance Due Date Last Done Comments COVID-19 vaccine series (#1) 1940 Tdap 1951 Depression screening for age 12+ 1952 Tetanus booster 1960 Zoster (shingles) series for age 50+ (1 of 2) 1990 DEXA/DXA scan for age 65+ 2005 Pneumococcal series for age 65+ (1 - PCV) 2005 BMI (ht and wt on same day) for age 18+ 04/08/2017 04/08/20 16 Influenza for age 65+ 01/31/2022 Medical Devices Implanted Type [employer] Device Shelf Model / Identifier Expiration Date Ser ial / Lot Triathlon X3 Tibial Bearing Insert - Cs Right: fitogram 10/02/2026 [id number] / Implanted: Qty: 1 on 01/14/2022 by Moises Souza MD at [facility] Knee [employer]opaedics / [id number] Procedures Procedure Name Priority Date/Time Associated Diagnosis Comme nts BASIC METABOLIC Early AM 01/15/2022 5:56 Results f or this PANEL AM CDT procedure are i n the results section. HEMOGLOBIN Early AM 01/15/2022 5:56 Results for this AM CDT procedure are i n the results section. SPINAL BLOCK Routine 01/14/2022 7:31 Results for this AM CDT procedure are i n the results section. [facility] ANES BLOCK INJ Routine 01/14/2022 7:21 Resul ts for this PERIPH AM CDT procedure are i n the results section. [facility] ANES US GUIDE Routine 01/14/2022 7:21 Result s for this AM CDT procedure are i n the results section. [facility] NDL PR10 Routine 01/14/2022 7:21 Results for this AM CDT procedure are i n the results section. ARTHROPLASTY KNEE 01/14/2022 6:51 osteoarthritis of th e AM CDT right knee Case Notes 23 hour outpatient stay Eric Boggs notified 12/13/2021 Special Needs Chart made H&P & COVID-[address] Anup Evans 01/09/22 [facility] [phone] GLUCOSE METER Timed 01/14/2022 6:05 AM CDT Resu lts for this procedure are in the results sec tion. SCAN-CARDIAC STRIP 01/14/2022 12:00 AM CDT Results for this procedure are in the results sec tion. from Last 3 Months Results (ABNORMAL) Hemoglobin - Daily x 1 (01/15/2022 5:56 AM CDT) athologist Signature HEMOGLOBIN 11.0 (L) 12.0 - 01/15/2022 [facility] 16.0 g/dL 6:12 AM CDT [facility] MCV 95 80 - 100 01/15/2022 [facility] fL 6:12 AM CDT [facility] Specimen Anatomical Collection Method Collection Time Receive d Time (Source) Location / / Volume Laterality Blood BLOOD SPECIMEN / Butterfly / 01/15/2022 5:56 AM 01/15 6:08 Unknown Unknown CDT AM CDT Narrative [facility] [place] [facility] - 01/15/2022 6:12 AM CDT Call surgeon if hemoglobin less than 8. Stephania GIVENS HEMATOLOGY Performing Organization Address City/State/ZIP Code Phon e Number [facility] [address] [place] [address] [facility] (ABNORMAL) Basic Metabolic Panel (01/15/2022 5:56 AM CDT) P athologist Signature SODIUM 137 135 - 145 01/15/2022 [facility] mmol/L 6:28 AM CDT [facility] POTASSIUM 4.0 3.5 - 5.0 01/15/2022 [facility] mmol/L 6:28 AM CDT [facility] CHLORIDE 106 98 - 110 01/15/2022 [facility] mmol/L 6:28 AM CDT [facility] CO2,TOTAL 25 21 - 31 01/15/2022 [facility] mmol/L 6:28 AM CDT [facility] ANION GAP 6 5 - 18 01/15/2022 [facility] 6:28 AM CDT [facility] GLUCOSE 110 (H) 65 - 100 01/15/2022 [facility] mg/dL 6:28 AM CDT [facility] CALCIUM 9.1 8.5 - 10.5 01/15/2022 [facility] mg/dL 6:28 AM CDT [facility] BUN 15 8 - 25 01/15/2022 [facility] mg/dL 6:28 AM CDT [facility] CREATININE 0.93 0.57 - 01/15/2022 [facility] 1.11 mg/dL 6:28 AM CDT [facility] BUN/CREAT RATIO 16 10 - 20 01/15/2022 [facility] 6:28 AM CDT [facility] eGFR 62 (L) >90 01/15/2022 [facility] mL/min/1.7 6:28 AM CDT [address] Comment: As of 2021, eGFR is calcu lated by the CKD-EPI creatinine equation without race adjustment. eGFR can be inf luenced by muscle mass, exercise, and diet. The reported eGFR is an estimation only and is only applicable if the renal function is stable. Specimen Anatomical Collection Method Collection Time Receive d Time (Source) Location / / Volume Laterality Blood BLOOD SPECIMEN / Butterfly / 01/15/2022 5:56 AM 01/15 6:08 Unknown Unknown CDT AM CDT Stephania GIVENS CHEMISTRY Performing Organization Address City/State/ZIP Code Phon e Number [address] [address] [facility] TRAY PR10 (01/14/2022 7:31 AM CDT) Narrative Richelle Mcdowell CRNA - 01/14/2022 7 :31 AM CDT Richelle Mcdowell CRNA ? 01/14/2022 ??7:51 AM Spinal Block Patient location during procedure: OR Reason for block: primary anesthetic Requesting provider: Moises Souza MD PreProcedure Checklist Completed: chloraprep used and completel y dried prior to procedure and surgical consent Spinal Block Patient position: sitting Prep: chloraprep Patient monitoring: continuous pulse oxi metry Approach: midline Skin Infiltration: lidocaine 1% Location: L3-4 Needle Needle type: pencil-point Needle length: 4 in Assessment Sensory level: T6 Events: no complications. Electronically signed by Richelle Mcdowell CRNA ? Sherryyani Bhavesh Lazaroted OTA ANESTHESIA PX NOTE ORDERABLE S [facility] NDL PR10, [facility] ANES US GUIDE, [facility] ANES BLOCK INJ PERIPH (01/14/2022 7:21 AM CDT) Narrative Brendan Gallegos MD - 01/14/2022 7: 21 AM CDT Brendan Gallegos MD ? 01/14/2022 ??9:30 AM Peripheral Block Patient location during procedure: pre-o p Start time: 01/14/2022 7:21 AM End time: 01/14/2022 7:22 AM Reason for block: at surgeon's request a nd post-op pain Requesting provider: Moises Souza MD PreProcedure Checklist Completed: patient identified, site anup ed, risks and benefits discussed, surgical consent, timeout performed and hand hygiene performed. Peripheral Block Patient position: supine Prep: chloraprep Patient monitoring: continuous pulse oxi metry, ECG and blood pressure Supplemental O2: yes Neuro Status: mild sedation Block type: adductor canal and lower ext remity Lower extremity block type: adductor can al block of the femoral nerve Laterality: right Injection technique: single injection Skin Infiltration: lidocaine 1% Injection assessment: incremental Needle Needle type: short-bevel Needle gauge: 21 G Needle length: 100 mm Needle localization (ultrasound): live u ltrasound guidance, needle and nerve visualized, no pathologic findings , local anesthetic visualized surrounding nerve, nerve appears normal and permanent images obtained. Needle Localization (other): anatomical landmarks. Catheter Catheter used:no Events: no complications. Electronically signed by Brendan Gallegos MD ? Richelle Mcdowell OTA ANESTHESIA PX NOTE ORDERABLE S (ABNORMAL) GLUCOSE METER (01/14/2022 6:05 AM CDT) athologist Signature GLUCOSE METER 102 (H) 65 - 100 01/14/2022 [facility] mg/dL 6:09 AM CDT [facility] Specimen Anatomical Collection Method Collection Time Receive d Time (Source) Location / / Volume Laterality Blood BLOOD SPECIMEN / 01/14/2022 6:05 AM 01/14 6:09 Unknown CDT AM CDT Moises Souza MD CHEMISTRY Performing Organization Address City/State/[facility] Phon e Number [facility] [address] [place] [address] [facility] SCAN-CARDIAC STRIP (01/14/2022 12:00 AM CDT) Narrative 01/14/2022 12:00 AM CDT This result has an attachment that is no t available. Ordered by an unspecified provider. Other Clinical Staff OTHER from Last 3 Months Insurance Payer Benefit Plan / Subscriber ID Effective Dates Phone Addre ss Type Group MEDICARE PART A MEDICARE PART A [id number] 2005-Prese ATTN: CLAIMS - HB USE ONLY HB ONLY nt [address] [place] [address] MEDICARE PART B MEDICARE PART B [id number] 2005-Prese ATTN: CLAIMS - HB USE ONLY HB ONLY nt [address] [place] [address] MEDICARE - PB MEDICARE PB [id number] 2017-Prese ATTN : CLAIMS USE ONLY ONLY nt [address] [place] [address] CR [place] [id number] 2010-[facility] OFFICE OF nt COMMUNITY CARE ATTN: CLAIMS [address] [address] [place] [address] MEDICARE - PB MEDICARE PB [id number] 2015-[facility] ATTN: CLAIMS USE ONLY ONLY nt [address] [place] [address] [id number] 2010-[facility] OFFICE OF nt COMMUNITY CARE ATTN CLAIMS [address] [address] [place] [address] [address] [place] [address] [id number] Jennifer Cole Personal/Family Self 1940 [address] [place] [address] Advance Directives Latest Code Status on File Code Status Date Activated Date Inactivated Comments Full Code 01/14/2022 5:31 AM 01/15/2022 4:31 PM Code Status Discussion: Reviewed Preferences Full Code 04/22/2016 12:04 PM 2016 4:56 PM Full Code 04/22/2016 8:20 AM 04/22/2016 12:04 PM Full Code 09/02/2013 7:54 AM 09/03/2013 4:58 PM Full Code 05/28/2007 8:30 PM 05/29/2007 5:20 PM Care Teams Medical Billing And Coding Specialist Relationship Specialty Start Date End Date Anup Evans MD PCP - General Internal Medicine 12/25/[address] [place] [address] DR [facility] [place] [id number]
--- OUTSIDE RECORDS SUMMARY | 2022-02-13 11:38 | XMS_ITS | Encounter Summary ---
:1940 Author Organization [facility] Address [address] [place] [id number] Care Team Providers Name Role Phone Francesco Bonner MD Unavailable Unavailable Anup Evans MD Primary Care Provider [facility] [phone] Reason for Visit Reason Comments Constipation Encounter Details Date Type Department Care Team Description 02/05/2022 Emergency [facility] Solis Robbins MD Emergency Care [facility] [address] [facility] [address] [place], [place] [address] [address] [place] [address] [phone] (Wo rk) Social History Tobacco Use Types Packs/Day Years Used Date Smoking Tobacco: Every Day Cigarettes 1 Smokeless Tobacco: Never Tobacco Cessation: Ready to Quit: Not As ked; Counseling Given: Not Answered Comments: 06/05 PPD Alcohol Use Standard Drinks/Week Comments Yes [...] in contact with No / Unsu re 02/05/2022 6:41 AM CDT someone who was confirmed or suspected to have Coronavirus/COVID-19? documented as of this encounter Last Filed Vital Signs Vital Sign Reading Time Taken Comments Blood Pressure 131/87 02/05/2022 9:08 AM CDT Pulse 77 02/05/2022 9:08 AM CDT Temperature 36.6 ??C (97.8 ??F) 02/05/2022 6:41 AM CDT Respiratory Rate 16 02/05/2022 9:08 AM CDT Oxygen Saturation 96% 02/05/2022 9:08 AM CDT Inhaled Oxygen Concentration - - Weight - - Height 157.5 cm (5' 2) 02/05/2022 6:41 AM CDT Body Mass Index - - documented in this encounter Discharge Instructions AttachmentsThe following attachments cannot be sent through Care Everywhere. Constipation (AfterCare(R) Instructions(ER/ED)) (Danish)documented in this encounter Medications at Time of Discharge Medication Sig Dispensed Refills Start Date End Date acetaminophen (TYLENOL) 500 Take 1,000 mg by 0 mg oral tablet mouth. aspirin 81 mg oral enteric Take 81 mg by mouth. 0 01/15/2022 coated tablet hydrOXYzine HCl (ATARAX) 25 TAKE ONE TABLET BY 0 01/25/2022 mg oral tablet MOUTH THREE TIMES A DAY NEEDED lidocaine-prilocaine (EMLA) Apply to skin twice 30 g 1 10/03/2021 2.5-2.5 % Top cream cream a day. To the knees as needed ondansetron (ZOFRAN) 4 mg TAKE ONE TO TWO 0 01/24 oral tablet TABLETS BY MOUTH EVERY 8 HOURS NEEDED FOR NAUSEA oxyCODONE, immediate TAKE 1 TO 2 TABLETS 0 2021 release, (ROXICODONE) 5 mg BY MOUTH 4 TO 6 oral tablet HOURS NEEDED FOR PAIN. MAX 6 TABS/DAY potassium chloride (K-DUR) Take 1 tablet (20 90 tablet 3 20 mEq oral extended mEq) by mouth once release tablet daily. rosuvastatin (CRESTOR) 20 Take 1 tablet (20 90 tablet 3 mg oral tablet mg) by mouth once daily. senna-docusate (SENNA-S) Take 1-2 tablets by 0 8.6-50 mg oral tablet mouth. triamterene-hydrochlorothia TAKE 1 TABLET BY 90 tablet 3 zide (MAXZIDE) 37.5-25 mg MOUTH EVERY DAY oral tablet documented as of this encounter ED Notes Sindhu Donovan RN - 02/05/2022 9:09 AM CDT Patient is alert and oriented x4. Skin is pink, warm, and dry. Patient is speaking clear, full sentences and is ambulatory upon discharge. Discharge and follow up instructions completed. Questions answered. Sindhu Donovan RN - 02/05/2022 7:57 AM CDT Medication administration completed. Patient is currently refusing the suppository. The patient requested to be placed on the commode due to the fear of not making it to the bathroom in time because ofher limited mobility due to recent knee surgery. Call light and personal hygiene products within reach. Will continue to monitor. Jagdeep Robbins MD - 02/05/2022 7:18 AM CDT CHIEF COMPLAINT: Constipation HPI: Initial history obtained at 7:18 AM 02/05/22. Obtained from the patient and per chart review. Jennifer Cole is a 81 y.o. female with past history of ASCVD, hypertension, and PAD who presentsto the emergency department for evaluation of constipation. On 01/14, the patient had a right total knee arthroplasty performed at [facility] without complications. She was discharged with prescriptions for Sennosides-docusate, Oxycodone, Aspirin 81 mg, and Tylenol Extra Strength. The patient states she is still taking Oxycodone currently with her most recent dose at 4:30 AM. Since the surgery, she reports two bowel movements and numerous episodes of liquid water. The patient has attempted several treatments for constipation without improvement including Miralax, Senna, and enemas. She endorses nausea, but denies vomiting. The patient has been able to occasionally pass gas. She has never had a colonoscopy performed; she states her PCP has offered but she has declined. She deniesa history of bowel obstruction or a family history of colon cancer. MEDICATIONS: Acetaminophen (Tylenol) 500 Mg Oral Tablet Aspirin 81 Mg Oral Enteric Coated Tablet Hydroxyzine Hcl (Atarax) 25 Mg Oral Tablet Lidocaine-prilocaine (Emla) 2.5-2.5 % Top Cream Cream Ondansetron (Zofran) 4 Mg Oral Tablet Oxycodone, Immediate Release, (Roxicodone) 5 Mg Oral Tablet Potassium Chloride (K-dur) 20 Meq Oral Extended Release Tablet Rosuvastatin (Crestor) 20 Mg Oral Tablet Senna-docusate (Senna-s) 8.6-50 Mg Oral Tablet Triamterene-hydrochlorothiazide (Maxzide) 37.5-25 Mg Oral Tablet ALLERGIES: Atorvastatin Percocet [Oxycodone-Acetaminophen] PAST MEDICAL HISTORY: ASCVD (arteriosclerotic cardiovascular disease) Asymmetric blood pressures Coronary artery calcification seen on CT scan DDD (degenerative disc disease), lumbar Essential hypertension Hypercholesterolemia Lumbar disc herniation Osteopenia PAD (peripheral artery disease) Post-operative infection Pulmonary nodules Subclavian arterial stenosis Tobacco use disorder PAST SURGICAL HISTORY: Cholecystectomy Cyst resection, breast L5-S1 hemilaminectomy and discectomy Total knee arthroplasty, right FAMILY HISTORY: Alcohol Abuse (Father, Sister) Cancer (Brother) Diabetes (Mother) Heart Disease (Father) Kidney Disease (Brother) Stroke (Mother) SOCIAL HISTORY: 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 REVIEW OF SYSTEMS: Review of Systems Gastrointestinal: Positive for constipation and nausea. Negative for vomiting. All other systems reviewed and are negative. PHYSICAL EXAM: Physical Exam Temperature: 97.8 ??F (36.6 ??C) HR: 84 Respirations: 16 BP: (!) 141/58 SpO2: 97 % Constitutional: Awake and alert. HEAD: Atraumatic EENT: Ears: Normal appearing external ears Eyes: EOMI, clear sclera, symmetric pupils Nose: No nasal discharge Mouth: MMM NECK: normal ROM, no palpable adenopathy CARDIAC: Regular rate, regular rhythm, no murmur or rub. Warm extremities. No pedal edema. RESP: Non labored breathing. Clear to auscultation bilaterally. ABD: Soft. Non distended. No focal abdominal tenderness. No guarding. Sluggish bowel sounds. MUSCULOSKELETAL: No acute gross deformities. SKIN: Surgical incision to right knee is healing well. Clean, dry, and noninfective. No acute rash. Skin tone appears within normal limits. NEURO: Alert, not confused, somnolent or obtunded. Responding to verbal stimuli. No obvious acute neurologic deficit. ED COURSE: Laboratory: Labs Reviewed - No data to display Imaging: No orders to display Interventions: 075: Methylnaltrexone 12 mg, Subcutaneous Medications glycerin (adult) rectal suppository 1 suppository (1 suppository Rectal Declined 02/05/22729) methylnaltrexone (RELISTOR) injection 12 mg (12 mg Subcutaneous Given 02/05/22751) Patient Vitals for the past 24 hrs: BP Temp Pulse Resp SpO2 Height 02/05/22 0908 131/87 -- 77 16 96 % -- 02/05/22 0900 131/87 -- 77 -- 96 % -- 02/05/22 0715 93/73 -- 73 -- 96 % -- 02/05/22 0700 94/76 -- 72 -- 96 % -- 02/05/22 0641 (!) 141/58 97.8 ??F (36.6 ??C) 84 16 97 % 5' 2 (1.575 m) MDM: Jennifer Cole is a 81 y.o. female presents to the emergency department today for evaluation of constipation. This patient arrives with normal vital signs. She has a benign abdominal exam. Bowel sounds are sluggish but present. She is passing gas and having minimal bowel movements since her total knee replacement on January 14. The patient has been on narcotic therapy since that time. Notably as well the patient has never had a colonoscopy. Most likely this is narcotic induced constipation. Her benign abdominal exam does not suggest concerning acute intraperitoneal pathology. Since she is passing gas and given the chronicity of her symptoms this is unlikely to be an acute bowel obstruction. She was treated with relist store and had a bowel movement in the ER. She felt better after the bowel movement. She would like to discharge at this time. This seems reasonable but I did provide return precautions. She is to stop taking her narcotic medication. Really I do not think she needs this given she is now 3 weeks postoperative. Like her to percy franz her bowel regimen, drink plenty of water, high-fiber diet, and ambulate is much as possible.This should all encourage bowel stimulation and bowel movements. Patient will comfortable with this plan. I think she is safe to discharge at this time. Return precautions were discussed and patient agrees. DIAGNOSIS: ICD-10-CM 1. Constipation due to opioid therapy K59.03 [id number] DISPOSITION: Discharged New Prescriptions No medications on file ATTESTATION: Scribe Attestation: I, Roseline Gonzalez, am serving as a scribe to document services personally performed by Jagdeep Robbins MD, based on my observations and the provider's statements to me. Provider Attestation: Portions of this medical record were completed by a scribe. UPON MY REVIEW AND AUTHENTICATION BY ELECTRONIC SIGNATURE, this confirms (a) I performed the applicable clinical services, and (b) the recordis accurate. Jagdeep Robbins MD 02/05/22 02/05/2022 [facility] Rosa Elena Benson RN - 02/05/2022 6:43 AM CDT Pt has been constipated since before her right knee surgery that was 5 weeks ago. Pt has tried suppositories, miralax, enemas with no luck. Decreased PO intake but no vomiting. Pt is still taking oxycodone for her pain, she is mostly down to 1 pill BID. documented in this encounter Plan of Treatment Not on filedocumented as of this encounter Visit Diagnoses Diagnosis Constipation due to opioid therapy - Sunita admon documented in this encounter Administered Medications Inactive Administered Medications - up to 3 most recent administrations Medication Order MAR Action Action Date Dose Rate Site methylnaltrexone (RELISTOR) Given 02/05/2022 7:52 12 mg Right Posterior Arm injection 12 mg AM CDT (SubQ) 12 mg, Subcutaneous, ONCE, 1 dose, On Fri02/05/22 at 0730 documented in this encounter Active and Recently Administered Medications Times are shown in CDT. Scheduled Medication Order 02/03/2022 02/04/2022 02/05/2022 glycerin (adult) rectal suppository 1 suppository 0730 (Declined - Provider: Sindhu Donovan, MADELYN) 1 suppository, Rectal, ONCE, 1 dose, On Fri02/05/22 at 0730 methylnaltrexone (RELISTOR) injection 12 mg (COMPLETED) 0752 (Given - Provider: Sidnhu Donovan RN) 12 mg, Subcutaneous, ONCE, 1 dose, On Fri02/05/22 at 0730 documented in this encounter Care Teams Bottom Bleacher Relationship Specialty Start Date End Date Anup Evans MD PCP - General Internal Medicine 02/23/[address] [place] [address] Dr Pérez [facility] [place] [address] Chauncey Bill [facility] PCP - Primary Care Clinic [address] [place] [address] DR PÉREZ [facility] [place] [address] Francesco Bonner MD 08/11/13 documented as of this encounter
--- OUTSIDE RECORDS SUMMARY | 2022-02-13 11:38 | XMS_ITS | Encounter Summary ---
:1940 Author Organization [facility] Address [address] [place] [address] Care Team Providers Name Role Phone Francesco Bonner MD Unavailable Unavailable Anup Evans MD Primary Care Provider [facility] [phone] Encounter Details Date Type Department Care Team Description 01/09/2022 Travel Social History Tobacco Use Types Packs/Day Years Used Date Smoking Tobacco: Every Day Cigarettes Smokeless Tobacco: Never Comments: 06/05 PPD Alcohol Use Standard Drinks/Week [...] on filedocumented in this encounter Care Teams Quoter Relationship Specialty Start Date End Date Anup Evans MD PCP - General Internal Medicine 02/23/[address] [place] [address] Dr Pérez [facility] Internal Medicine [place], [place] [id number] Chauncey Bill PCP - Primary Care Clinic [address] [place] [address] [place] [id number] Francesco Bonner MD 08/11/13 documented as of this encounter
--- OUTSIDE RECORDS SUMMARY | 2022-02-13 11:38 | XMS_ITS | Encounter Summary ---
:1940 Author Organization [facility] Address [address] [place] [address] Care Team Providers Name Role Phone Francesco Bonner MD Unavailable Unavailable Anup Evans MD Primary Care Provider [facility] [phone] Encounter Details Date Type Department Care Team Description 11/20/2021 Travel Social History Tobacco Use Types Packs/Day [...] on filedocumented in this encounter Care Teams Duplicator Punch Operator Relationship Specialty Start Date End Date Anup Evans MD PCP - General Internal Medicine 02/23/[address] [place] [address] Dr Pérez [facility] [place] [address] Chauncey Bill PCP - Primary Care Clinic [address] [place] [address] [place] [address] Francesco Bonner MD 08/11/13 documented as of this encounter
--- OUTSIDE RECORDS SUMMARY | 2022-02-13 11:38 | XMS_ITS | Clinical Summary ---
:1940 Author Organization [facility] Address [address] [place] [address] Care Team Providers Name Role Phone Francesco Bonner MD Unavailable Unavailable Yuli Watkins MD Primary Care Provider [facility] Unavailable [phone] Allergies Active Allergy Reactions Severity Noted Date Comments Atorvastatin 02/04/2017 Oxycodone-Acetaminophen Itching 05/06/2016 Christina re itching Medications Medication Sig Dispensed Refills Start Date End Date Status potassium chloride Take 1 tablet (20 90 tablet 3 05/23/2021 Active (K-DUR) 20 mEq oral mEq) by mouth extended release tablet once daily. rosuvastatin (CRESTOR) Take 1 tablet (20 90 tablet 3 1 Active 20 mg oral tablet mg) by mouth once daily. triamterene-hydrochloro TAKE 1 TABLET BY 90 tablet 3 1 Active thiazide (MAXZIDE) MOUTH EVERY DAY 37.5-25 mg oral tablet lidocaine-prilocaine Apply to skin 30 g 1 10/03/2021 Active (EMLA) 2.5-2.5 % Top twice a day. To cream cream the knees as needed senna-docusate Take 1-2 tablets 0 01/15/2022 Active (SENNA-S) 8.6-50 mg by mouth. oral tablet hydrOXYzine HCl TAKE ONE TABLET 0 01/25/2022 Active (ATARAX) 25 mg oral BY MOUTH THREE tablet TIMES A DAY NEEDED oxyCODONE, immediate TAKE 1 TO 2 0 01/29/2022 Active release, (ROXICODONE) 5 TABLETS BY MOUTH mg oral tablet 4 TO 6 HOURS NEEDED FOR PAIN. MAX 6 TABS/DAY ondansetron (ZOFRAN) 4 TAKE ONE TO TWO 0 01/24/2022 Active mg oral tablet TABLETS BY MOUTH EVERY 8 HOURS NEEDED FOR NAUSEA acetaminophen (TYLENOL) Take 1,000 mg by 0 Active 500 mg oral tablet mouth. aspirin 81 mg oral Take 81 mg by 0 01/15/2022 Active enteric coated tablet mouth. Active Problems Problem Noted Date Osteopenia 07/05/2021 Overview: 07/24 S-1.0 H-2.0 (Frax 16%, 7%) Subclavian arterial stenosis 06/25/2021 Overview: 06/25/21 US: Moderate to severe (>50%) RI GHT subclavian artery stenosis (difficult visualization). DDD (degenerative disc disease), lumbar 07/16/2017 ASCVD (arteriosclerotic cardiovascular disease) 2016 Overview: Formatting of this note is dif ferent from the original. 05/07/17 CORONARY ANATOMY:?Right Domin ant. LEFT MAIN:?The left main was minimall y diseased and bifurcated into the left anterior descending and circumflex. ? LEFT ANTERIOR DESCENDING:?Diffuse mix ed calcified and noncalcified plaque throughout the proximal and mid left ant erior descending with mild stenosis.?The remainder of the left a nterior descending was normal. FIRST DIAGONAL:?Patent, small. SECOND DIAGONAL:?Patent, small. THIRD DIAGONAL:?Mildly diseased, larg e. CIRCUMFLEX:?Mild proximal disease.?Mild disease prior to a large patent first obtuse marginal, which was the breann or vessel to the lateral wall.? The AV groove circumflex was small after wards. RIGHT CORONARY ARTERY:?Dominant.?M ild proximal through?distal nonobstructive disease.?Small patent RPDA.?Larger patent RPL branches. The calcium score was 188.5 (left anteri or descending 89.4, circumflex 20.9, right coronary artery 78.2).?This placed the patient in the 67th percentile Pulmonary nodules 05/20/2017 Overview: 05/07/17 5 x 3 mm pulmonary nodule in the inferior right middle lobe (new from 09/13) 12/02/17 CT There are two 7 mm groundglass opacities in the right upper lobe which are new since prior CT. The 12 and 13 mm groundglass opacities in the right upper lobe are grossly unchanged compared to prior exam in retrospect. There are scat tered 2-3 mm solid pulmonary nodules seen in both lungs which are relatively stable. 03/10/18 groundglass opacities persist 06/18/18 Each of the pulmonary nodules an d groundglass opacities reported on the prior examinations are stable when compared to exams dating back to December 02, 2017.. One or more of these subtle groundglass opacities were not definitely seen in 2 014. Based on published guidelines yearly follow-up to confirm stability for 4 years is recommended. 07/05/21 CT: New 6 x 8 mm groundglass opac ity in the left lower lobe. This may be infectious or inflammatory. 10/02/21 CT: Previously noted ill-defined nodular opacities at the posterior right lung apex and groundglass opacity at the left lung base have resolved. Indeterminate groundglass opacities in the right u pper lobe, as described above, are simil ar to the previous study of 07/05/2021. Tiny nodule at the lateral left lung base is unchanged from 07/05/2021. No new lung opacities or nodules are seen. Hypercholesterolemia 09/17/2016 Asymmetric blood pressures 07/10/2016 Overview: L>R (Check BP on left arm) PAD (peripheral artery disease) 07/10/2016 Overview: 12/13 Study reveals the following: There is a differential blood pressure between the patient's left brachial artery and right brachial artery with a pressure of 143 on the lef t compared to 89 on the right. ABIs at the level of the thigh, calf, ankle, over the posterior tibial artery and dorsalis pedis are normal bilaterally. ABIs do no t decrease with exercise suggesting norm al arterial supply to both lower extremities. Essential hypertension 07/10/2016 Tobacco use disorder 02/23/2016 Resolved Problems Problem Noted Date Resolved Date Sepsis 05/01/2016 05/28/2016 Encephalopathy 05/01/2016 05/28/2016 Encounters Date Type Specialty Care Team Description 02/05/2022 Emergency Emergency Medicine Jagdeep Robbins MD 02/05/2022 Travel 01/09/2022 Office Visit Internal Medicine Yuli Watkins, Preop examination (Primary Dx); [facility]; Essential hyper tension; Hypercholestero lemia; Asymmetric bloo d pressures; Tobacco use dis order; PAD (peripheral artery disease) ([facility]) 01/09/2022 Travel 11/20/2021 Office Visit Internal Medicine Tomás Garcia, Chest pain, unspecified type (Primary Dx); ASCVD (arterios clerotic cardiovascular disease); Essential hyper tension; Anxiety disorde r, unspecified type 11/20/2021 Travel 11/19/2021 Nurse Triage Internal Medicine Yuli Watkins MD 11/16/2021 Travel from Last 3 Months Immunizations Name Administration Dates Next Due SHINGRIX 03/27/2020 Family History Medical History Relation Comments Other Disease Brother 1 Suicide Kidney Cancer Brother 2 Cancer Brother 3 No Known Problems Brother 4 No Known Problems Brother 5 Breast Cancer Daughter 1 Cancer Daughter 2 Kidney Disease Daughter 3 Alcohol Abuse Father Heart Disease Father Diabetes Mother Stroke Mother Alcohol Abuse Sister 1 No Known Problems Sister 2 No Known Problems Sister 3 No Known Problems Sister 4 No Known Problems Sister 5 No Known Problems Sister 6 Heart Disease Son 1 Other Disease Son 1 Hepatitis No Known Problems Son 2 No Known Problems Son 3 No Known Problems Son 4 Relation Status Comments Brother 1 Brother 2 Brother 3 Brother 4 in a car accide nt Brother 5 Alive Daughter 1 Daughter 2 Alive Daughter 3 Alive Father Mother (Age 70s) Sister 1 Alive Sister 2 Alive Sister 3 Alive Sister 4 Alive Sister 5 Alive Sister 6 Alive Son 1 Alive Son 2 Alive Son 3 Alive Son 4 Alive Social History Tobacco Use Types Packs/Day Years [...] was confirmed or suspected to have Coronavirus/COVID-19? Last Filed Vital Signs Vital Sign Reading Time Taken Comments Blood Pressure 131/87 02/05/2022 9:08 AM CDT Pulse 77 02/05/2022 9:08 AM CDT Temperature 36.6 ??C (97.8 ??F) 02/05/2022 6:41 AM CDT Respiratory Rate 16 02/05/2022 9:08 AM CDT Oxygen Saturation 96% 02/05/2022 9:08 AM CDT Inhaled Oxygen Concentration - - Weight 74 kg (163 lb 1.6 oz) 01/09/2022 9:34 AM CDT Height 157.5 cm (5' 2) 02/05/2022 6:41 AM CDT Body Mass Index 29.83 01/09/2022 9:34 AM CDT Plan of Treatment Health Maintenance Due Date Last Done Comments COVID-19 Vaccine (#1) 1940 Influenza Vaccine (#1) 2022 05/11/2020 (Declined), 02/04/2017 (Declined), 02/23/2016 (Declined) Medicare Wellness Visit 05/23/2022 05/23/2021, 05/11/2020, 05/11/2020, Additional history exists Yearly Review of HCD 02/05/2023 02/05/2022, 04/10/2021, 05/11/2020, Additional history exists Dexa Scan 07/05/2023 07/05/2021, 12/15/2018 (Declined), 02/23/2016 (Declined) Adult Tetanus Booster 02/22/2026 02/23/2016 (Declined) Colonoscopy 02/22/2026 02/23/2016 (Declined) Pneumococcal 65+ Addressed 08/14/2017 (Declined), Overridd en with the 02/23/2016 (Declined) intention of not completing the t opic Zoster Vaccine Addressed 03/27/2020, 12/15/2018 Overridde n with the (Declined) intention of not completing the t opic Procedures Procedure Name Priority Date/Time Associated Diagnosis Comme nts SARS-COV-2, PCR 2 DAY Routine 01/09/2022 10:24 Preop examinati on Results for this TAT ([facility]) AM CDT procedure are in the results section. SARS-COV-2 PCR Routine 01/09/2022 10:24 Preop examination Resu lts for this ([facility]) AM CDT procedure are i n the results section. BUN/CREATININE Routine 01/09/2022 10:24 [...] are i n ([facility]) the results section. EKG WITH Routine 01/09/2022 10:09 Preop examination Result s for this INTERPRETATION/REPORT AM CDT proced ure are in the results section. from Last 3 Months Results SARS-COV-2, PCR 2 DAY TAT ([facility]) (01/09/2022 10:24 AM CDT) Analysis Performed At Patho logist Time Signature SARS-CoV-2 PCR Performed 01/10/2022 [facility] 2 Day TAT 11:06 PM CDT [facility] ([facility]) Specimen Anatomical Collection Method Collection Time Receive d Time (Source) Location / / Volume Laterality Nasal 01/09/2022 10:24 01/09/2022 AM CDT 10:25 AM CDT Narrative [facility] - 01/10/2022 11:06 PM CDT Performed at: ??02 - [facility] [place] [address] [place], [place] ??[address] Medication Aid: Elia Grove MD, Phone: ?? [phone] Yuli Watkins MD [facility] ORDERABLES Performing Organization Address City/State/ZIP Code Phon e Number [facility] [address] [place] [address] SARS-COV-2 PCR ([facility]) (01/09/2022 10:24 AM CDT) [facility] Method Time Signature SARS-CoV-2, Not Detected Not Detected 01/10/2022 [facility] 11:06 PM CDT [facility] Comment: This nucleic acid amplification test was developed and its performance characteristics determined [facility] Rosa padgett. Nucleic acid amplification tests include RT-PCR and T MA. This test has not been FDA cleared or approved. This test has b een authorized by FDA under an Emergency Use Authorization (EUA). Th is test is only authorized for the duration of time the declaration that circumstances exist justifying the authorization of the [facility] use of in vitro diagnostic tests for [...] 01/09/2022 AM CDT 10:25 AM CDT N[facility]ative [facility] - 01/10/2022 11:06 PM CDT Performed at: ??01 - [facility] [place] [address] ??[id number] Medication Aid: Elia Grove MD, Phone: ?? [phone] Yuli Watkins MD [facility] ORDERABLES Performing Organization Address City/State/ZIP Code Phon e Number [facility] [place] [address] [place] [address] ELECTROLYTE PANEL ([facility]) (01/09/2022 10:24 AM CDT) [...] AM CDT Performed at: ??01 - [facility] [address] ??[address] Medication Aid: Elia Grove MD, Phone: ?? [phone] Yuli Watkins MD [facility] ORDERABLES Performing Organization Address City/[facility]/ZIP Code Phon e Number [facility] [place] [address] [place] [address] CBC/PLATELET, NO DIFFERENTIAL ([facility]) (01/09/2022 10:24 AM [...] 7:13 AM CDT Performed at: ??01 - [facility] ??[id number] Medication Aid: Elia Grove MD, Phone: ?? [phone] Yuli Watkins MD [facility] ORDERABLES Performing Organization Address City/State/ZIP Code Phon e Number [facility] [place] [address] [place], [place] [id number] (ABNORMAL) BUN/CREATININE ([facility]) (01/09/2022 10:24 AM CDT) P athologist Signature BUN ([facility]) 12 8 - 27 01/10/2022 [facility] OF mg/dL 7:13 AM CDT [facility] Creatinine 0.97 0.57 - 01/10/2022 [facility] OF ([facility]) 1.00 mg/dL 7:13 AM CDT [facility] eGFR ([facility]) 59 (L) >59 01/10/2022 [facility] OF mL/min/1.7 7:13 AM CDT [facility] 3 BUN/Creatinine 12 - 01/10/2022 [facility] OF Ratio ([facility]) 7:13 AM CDT [facility] Specimen Anatomical Collection Method / Collection Time Recei lisa Time (Source) Location / Volume Laterality Blood Venipuncture / 01/09/2022 10:24 2 Unknown AM CDT 10:25 AM CDT Narrative [facility] - 01/10/2022 7:13 AM CDT Performed at: ??01 - [facility] [place] [address], [place], [place] ??[address] Medication Aid: Elia Grove MD, Phone: ?? [phone] Yuli Watkins MD [facility] ORDERABLES Performing Organization Address City/State/ZIP Code Phon e Number [facility] [place] [address] [place] [address] EKG WITH INTERPRETATION/REPORT (01/09/2022 10:09 AM CDT) P athologist Signature EKG BINDU SERRANO Comment: ? [facility] ? Test Date: ?2022-01-09 Pat Name: ? ALEX KIRK ?Department: ?? [facility] ?Room: ? Gender: ? F ?Stick Welder: ?? MZ : ?1940 ? Requested By: YULI WATKINS MD Order Number: [id number] ?Reading MD: ?? Yuli Watkins MD ? Measurements Intervals ?[place] ? Rate: ? 71 ? P: ?63 [place]: ? 183 ?QRS: ?-12 QRSD: ? 99 [...] Organization Address City/State/ZIP Code Phon e Number [facility] [address] [place] [address] from Last 3 Months Insurance Payer Benefit Plan / Subscriber ID Effective Dates Phone Addre ss Type Group MEDICARE MEDICARE PART [id number] 2018-Preskenney SANDHU EDELMIRA X [id number] Medicare A & B nt ATTN CLAIMS [facility] [address] JERI WILCOX [id number] 2010-Prese [phone] [id number] [place] [address] 5512 1 Alex Kirk E Personal/Famil Self 1940 [address] (Home) [place], [place] [address] 1 ALEX KIRK E Personal/Famil Self 1940 [address] [facility] (Home) [address] [place] [address] Advance Directives For more information, please contact: [phone] Latest Code Status on File Code Status Date Activated Date Inactivated Comments Full Code 05/01/2016 4:04 PM 05/11/2016 4:39 PM How was code status determined? Patient Full Code 08/08/2013 5:53 PM 08/09/2013 8:08 PM How was code status determined? Patient Care Teams Hotel Front Desk Clerk Relationship Specialty Start Date End Date Yuli Watkins MD PCP - General Internal Medicine 02/23/[address] [place] [address] Dr Pérez [facility] Internal Medicine [place] [address] Chauncey Bill PCP - Primary Care Clinic [address] [place] [address] Francesco Bonner MD 08/11/13
--- OUTSIDE RECORDS SUMMARY | 2022-02-13 11:38 | XMS_ITS | Encounter Summary ---
:1940 Author Organization [facility] Address [address] [place] [address] Care Team Providers Name Role Phone Francesco Bonner MD Unavailable Unavailable Anup Evans MD Primary Care Provider [facility] Unavailable [phone] Reason for Visit Reason Onset Date Comments Other 11/19/2021 Return call Chest tightness 11/19/2021 Encounter Details Date Type Department Care Team Description 11/19/2021 Nurse Triage [facility] Anup Evans MD Internal Medicine [address] Internal Medicine [address] [place] [address] [place], [place] [address] [phone] Social History Tobacco Use Types Packs/Day Years [...] have Coronavirus/COVID-19? documented as of this encounter Miscellaneous Notes Telephone Encounter - Oscar Hussein RN - 11/19/2021 12:01 PM CDT Disposition: FYI-office visit scheduled- encounter closed Actions Requested: None Ok to leave detailed voice message:no PCP: Anup Evans MD Preferred Pharmacy: . Summary of call details: patient has chest pain last Friday last 20 minutes- none since [facility] see mD brian rs Oscar Romero RN Care asian studies program chair Reason for Disposition ? ? [1] Chest pain lasts > 5 minutes AND [2] occurred > 3 days ago (72 hours) AND [3] NO chestpain or cardiac symptoms now Answer Assessment - Initial Assessment Questions 1. LOCATION: Where does it hurt? Chest across chest 2. RADIATION: Does the pain go anywhere else? (e.g., into neck, jaw, arms, back) none 3. ONSET: When did the chest pain begin? (Minutes, hours or days) Last Friday-20minutes 4. PATTERN Does the pain come and go, or has it been constant since it started? Does it get worsewith exertion? Comes and goes 5. DURATION: How long does it last (e.g., seconds, minutes, hours) 20min 6. SEVERITY: How bad is the pain? (e.g., Scale 1-10; mild, moderate, or severe) - MILD (1-3): doesn't interfere with normal activities - MODERATE (4-7): interferes with normal activities or awakens from sleep - SEVERE (8-10): excruciating pain, unable to do any normal activities mild 7. CARDIAC RISK FACTORS: Do you have any history of heart problems or risk factors for heart disease? (e.g., angina, prior heart attack; diabetes, high blood pressure, high cholesterol, smoker, or strong family history of heart disease) HTN 8. PULMONARY RISK FACTORS: Do you have any history of lung disease? (e.g., blood clots in lung, asthma, emphysema, control pills) none 9. CAUSE: What do you think is causing the chest pain? unknown 10. OTHER SYMPTOMS: Do you have any other symptoms? (e.g., dizziness, nausea, vomiting, sweating, fever, difficulty breathing, cough) none 11. : Is there any chance you are ? When was your last menstrual period? na Protocols used: CHEST PAIN-A-AH Telephone Encounter - Nandini Barkley - 11/19/2021 11:47 AM CDT Patient returned call to speak with triage nurse as requested. Please call her at [phone]. See other messages. Nandini Barkley [facility] Care Access Department documented in this encounter Plan of Treatment Not on filedocumented as of this encounter Visit Diagnoses Not on filedocumented in this encounter Care Teams Radiology Administrator Relationship Specialty Start Date End Date Anup Evans MD PCP - General Internal Medicine 02/23/[address] [place] [address] Dr Pérez [facility] [place] [address] [facility] PCP - Primary Care Clinic [address] NUÑEZ [facility] [place] [address] Francesco Bonner MD 08/11/13 documented as of this encounter
--- OUTSIDE RECORDS SUMMARY | 2022-02-13 11:38 | XMS_ITS | Encounter Summary ---
:[address] [facility] Address [address] [place] [address] Care Team Providers Name Role Phone Francesco Bonner MD Unavailable Unavailable Anup Evans MD Primary Care Provider [facility] [phone] Encounter Details Date Type Department Care Team Description 02/05/2022 Travel Social History Tobacco Use Types Packs/Day Years Used Date Smoking Tobacco: Every Day Cigarettes 1 Smokeless Tobacco: Never Comments: 06/05 PPD Alcohol [...] on filedocumented in this encounter Care Teams Irrigation Pump Installer Relationship Specialty Start Date End Date Anup Evans MD PCP - General Internal Medicine 02/23/[address] [place] [address] Dr Pérez [facility] Internal Medicine [place], [place] [address] Chauncey Bill PCP - Primary Care Clinic [address] [place] [address] [place] [address] Francesco Bonner MD 08/11/13 documented as of this encounter
--- OUTSIDE RECORDS SUMMARY | 2022-02-13 11:39 | XMS_ITS | Encounter Summary ---
:1940 Author Organization [facility] Address [address] [place] [id number] Care Team Providers Name Role Phone Francesco Bonner MD Unavailable Unavailable Anup Evans MD Primary Care Provider [facility] Unavailable [phone] Reason for Referral (Routine) - Closed Specialty Diagnoses / Procedures Referred By Contact Refer red To Contact Diagnoses Hypercholesterolemia Essential hypertension Anup Evans MD Procedures THYROID STIMULATING HORMONE [address] Pérez [facility] Internal Medicine [place] [address] 9 Referral ID Status Reason Start Date Expiration Date Visits Requ ested Visits Authorized [id number] Closed 12/15/2018 12/15/2019 1 1 (Routine) - Closed Specialty Diagnoses / Procedures Referred By Contact Refer red To Contact Diagnoses Hypercholesterolemia Essential hypertension Anup Evans MD Procedures LIPID PROFILE CASCADE [address] [facility] [facility] [address] [place] Internal Medicine [place] [phone] Referral ID Status Reason Start Date Expiration Date Visits Requ ested Visits Authorized [id number] Closed 12/15/2018 12/15/2019 1 1 (Routine) - Closed Specialty Diagnoses / Procedures Referred By Contact Refer red To Contact Diagnoses Hypercholesterolemia Essential hypertension Anup Evans MD Procedures BASIC METAB PROFILE [address] [place] Internal Medicine [place], [place] [address] 9 Referral ID Status Reason Start Date Expiration Date Visits Requ ested Visits Authorized [id number] Closed 12/15/2018 12/15/2019 1 1 (Routine) - Closed Specialty Diagnoses / Procedures Referred By Contact Refer red To Contact Diagnoses Hypercholesterolemia Essential hypertension Anup Evans MD Procedures CBC (HGB,HCT,WBC,RBC,PLATELET) [address] [place] [address] Dr Pérez [address] Internal Medicine [place], [place] [address] 9 Referral ID Status Reason Start Date Expiration Date Visits Requ ested Visits Authorized [id number] Closed 12/15/2018 12/15/2019 1 1 onsultation (Routine) - Closed Specialty Diagnoses / Procedures Referred By Contact Refer red To Contact Spine/Back Specialist Diagnoses Chronic bilateral low back pain without sciatica DDD (degenerative disc disease), lumbar Anup Evans MD [address] Orthopedics - [facility] [phone] Internal Medicine [facility] [address] [place] [phone] Fax: Referral ID Status Reason Start Date Expiration Date Visits V isits Requested Authorized [id number] Closed Specialty 12/15/2018 1 1 Services Required Reason for Visit Reason Comments Follow up medication Back pain Leg pain Cholesterol check Annual Medicare wellness visit - subsequent Encounter Details Date Type Department Care Team Description 12/15/2018 Office Visit [facility] Anup Evans Me dicare annual wellness visit, subsequent (Primary Dx); Clinic - Rebeca Bill MD Chronic bilateral low back pain without sciatica; [address] [place] [address] DDD (degenerative disc disease), lumbar; [address] Hypercholesterolemia; [place], [place] [address] Internal Medicine Essential hypertension [phone] [place] [address] Social History Tobacco Use Types Packs/Day Years [...] on file documented as of this encounter Last Filed Vital Signs Vital Sign Reading Time Taken Comments Blood Pressure 136/68 12/15/2018 9:00 AM CDT Pulse 78 12/15/2018 9:00 AM CDT Temperature 36.6 ??C (97.8 ??F) 12/15/2018 9:00 AM CDT Respiratory Rate - - Oxygen Saturation 97% 12/15/2018 9:00 AM CDT Inhaled Oxygen Concentration - - Weight 70.7 kg (155 lb 14.4 oz) 12/15/2018 9:00 AM CDT Height - - Body Mass Index 27.62 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 You may have had many of these tests already and you may also be following this advice, but if you are not, please discuss this with your health care team. ??? Drink alcohol only in moderation, avoid binge drinking and do not drink and drive. ??? Ask your provider if a daily aspirin is right for you. ??? You should discuss with your health care provider if you should continue mammogram screenings ??? Your should discuss with your provider if you should continue colon cancer screening tests. ??? You should have your blood pressure checked every year if your pressure is less than 120/80, andmore frequently if it is higher. ??? You should have a flu shot every year in the fall. ??? You should have your cholesterol panel checked at least every 5 years if it is normal, and more frequently if it is not normal. ??? You should have a series of two pneumonia vaccinations against pneumonia starting at age 65. ??? You should not use any tobacco products and, if you do, we should discuss your willingness to quit at each visit. ??? You should have a series of two immunizations against Herpes Zoster (shingles) starting at age 50. ??? You should watch your weight and keep it in the normal range. ??? You should be screened for osteoporosis one time at or after age 65. ??? If you have hearing loss or problems with balance or dizziness, you should see an advertising assistant manager orvisit a hearing and balance center. ??? Your vision should be checked every year. documented in this encounter Progress Notes Anup Evans MD - 12/15/2018 9:00 AM CDT SUBSEQUENT MEDICARE ANNUAL WELLNESS VISIT: Jennifer Cole is a 78 y.o. female who presents today for her Medicare Subsequent Annual WellnessVisit. She is not within the first year of medicare coverage and reports she has not had an annual wellness visit within the last 12 months. Patient Care Team: Anup Evans MD as PCP - General (Internal Medicine) [facility] as PCP - Primary Care Clinic Francesco Bonner MD Past Medical history, Surgical History, Family History, Social History and Allergies were reviewed in [facility] and updated today as needed. Current Outpatient Medications: diclofenac sodium 1 % Top gel APPLY 2 GRAMS TO SKIN 4 TIMES DAILY rosuvastatin (CRESTOR) 20 mg oral tablet TAKE 1 TABLET BY MOUTH ONCE DAILY triamterene-hydrochlorothiazide (MAXZIDE) 37.5-25 mg oral tablet TAKE 1 TABLET BY MOUTH ONCE DAILY Social History Tobacco Use ??? Smoking status: Current Every Day Smoker Packs/day: 1.00 Years: 60.00 Pack years: 60.00 Types: Cigarettes ??? Smokeless tobacco: Never Used Substance Use Topics ??? Alcohol use: Yes Comment: Occasional ??? Drug use: No Health Care Directive?: No Pt given information/[place] [employer] form Depression Screen: PHQ-2 Interest: Not at all Depression: Not at all Nutrition Diet Type: Regular Fall Assessment: Have you fallen in the last year?: Yes Do you feel unsteady when walking or standing? : Yes(with the pain in legs) Are you worried about falling?: No Get up and Go test (seconds) performed only if one of the above answers is yes: 10 Community dwelling frail older adults = > 14 sec associated with high fall risk Mental Status: Pt Concerns about her mental status: No By direct observation, there are not concerns about their cognitive function from my perspective. Physical Activities/ADLs: Hygiene: Independent, Feeding: Independent, Dressing: Independent, Meal Prep: Independent, Grocery Shopping: Independent, Money Management: Independent, Medication Management: Independent, Driving Status: Independent, Yard Work/Snow Removal: Not Responsible Objective Nursing notes and vitals have been reviewed Vitals: 12/15/18 0900 BP: 136/68 Pulse: 78 Temp: 97.8 ??F (36.6 ??C) Weight: 70.7 kg (155 lb 14.4 oz) Body mass index is 27.62 kg/m??. Hearing Do you have difficulty with your hearing?: No Assessment/Plan: Jennifer Cole was seen today for her Subsequent Annual Wellness Visit for Medicare. I have reviewed all of the above information and it is correct. Information on health care directives from [place] [employer] was provided. Additionally, she has been provided a handout on her personalized health advice, list of risk factors, and a screening schedule for recommended testing which we have discussed today (see Pt Instructions). Appropriate tests, referrals and the associated diagnoses have been ordered based on patient's history, risk factors and chronic disease. Anup Evans MD - 12/15/2018 9:00 AM CDT Images from the original note were not included. ?? Jennifer Cole is a pleasant 78 y.o. year old female seen with [facility] on 12/15/18. CHIEF COMPLAINT: Care wellness evaluation, follow-up medical problems and medications, back pain HPI: She has a history of lumbar disc disease. She is had 2 prior back surgeries. She has pain in the bilateral low back region with radiation and towards her buttocks. She has no significant focal weakness or paresthesias. She continues to use tobacco products. She is not interested in pursuing tobacco cessation. She declines colon cancer screening and bone density evaluation. She also is not interested in updating immunizations today. She has no difficulties with medications. She is having no chest pains or angina. No respiratory concerns. ACTIVE PROBLEM LIST: Diagnosis ??? DDD (degenerative disc disease), lumbar ??? ASCVD (arteriosclerotic cardiovascular disease) 05/07/17 CORONARY ANATOMY:?Right Dominant. LEFT MAIN:?The left main was minimally diseased and bifurcated into the left anterior descending and circumflex.? LEFT ANTERIOR DESCENDING:?Diffuse mixed calcified and noncalcified plaque throughout the proximal and mid left anterior descending with mild stenosis.?The remainder of the left anterior descending was normal. FIRST DIAGONAL:?Patent, small. SECOND DIAGONAL:?Patent, small. THIRD DIAGONAL:?Mildly diseased, large. CIRCUMFLEX:?Mild proximal disease.?Mild disease prior to a large patent first obtuse marginal, which was the major vessel to the lateral wall.? The AV groove circumflex was small afterwards. RIGHT CORONARY ARTERY:?Dominant.?Mild proximal through?distal nonobstructive disease.?Small patent RPDA.?Larger patent RPL branches. The calcium score was 188.5 (left anterior descending 89.4, circumflex 20.9, right coronary artery 78.2).?This placed the patient in the 67th percentile ??? Pulmonary nodules 05/07/17 5 x 3 mm [...] in both lungs which are relatively stable. Recommend short-term follow-up low-dose chest CT in 3 months to assess stability of the groundglass opacities. There is no nodule identified in the right middle lobe. 03/10/18 groundglass opacities persist 06/18/18 Each of the pulmonary nodules and groundglass opacities reported on the prior examinations are stable when compared to exams dating back to December 02, 2017.. One or more of these subtle groundglass opacities were not definitely seen in 2013. Based on published guidelines yearly follow-up to confirm stability for 4 years is recommended. ??? Hypercholesterolemia ??? Asymmetric blood pressures L>R (Check BP on left arm) ??? PAD (peripheral artery disease) ([facility]) 12/13 Study reveals the following: There [...] normal arterial supply to both lower extremities. ??? Essential hypertension ??? Tobacco use Past Surgical History: Procedure Laterality Date ??? HX BACK SURGERY Right 09/02/2013 L5-S1 hemilaminectomy + discectomy ??? HX BREAST SURGERY Right 1995 Cyst resection ??? HX CHOLECYSTECTOMY 1970 ??? HX LUMBAR LAMINECTOMY 04/2016 L5-S1 Family History Problem Relation Name Age of Onset ??? Diabetes Mother ??? Stroke Mother ??? Heart Disease Father ??? Alcohol Abuse Father ??? No Known Problems Sister ??? Other Disease Brother Suicide ??? No Known Problems Sister ??? No Known Problems Sister ??? No Known Problems Sister ??? No Known Problems Sister ??? No Known Problems Sister ??? Kidney Cancer Brother ??? Cancer Brother ??? No Known Problems Brother ??? No Known Problems Brother ??? Other Disease Son Hepatitis ??? Heart Disease Son ??? No Known Problems Son ??? No Known Problems Son ??? No Known Problems Son ??? Breast Cancer Daughter ??? Cancer Daughter ??? Kidney Disease Daughter Social History Tobacco Use ??? Smoking status: Current Every Day Smoker Packs/day: 1.00 Years: 60.00 Pack years: 60.00 Types: Cigarettes ??? Smokeless tobacco: Never Used Substance Use Topics ??? Alcohol use: Yes Comment: Occasional Current Outpatient Medications: diclofenac sodium 1 % Top gel APPLY 2 GRAMS TO SKIN 4 TIMES DAILY rosuvastatin (CRESTOR) 20 mg oral tablet Take 1 tablet (20 mg) by mouth once daily. triamterene-hydrochlorothiazide (MAXZIDE) 37.5-25 mg oral tablet TAKE 1 TABLET BY MOUTH ONCE DAILY Allergies Allergen Reactions ??? Atorvastatin ??? Percocet [Oxycodone-Acetaminophen] Itching Severe itching PHYSICAL EXAM: BP 136/68 (BP Cuff Site: Left arm, BP Cuff Position: Sitting, BP Cuff Size: Regular adult) Pulse 78 Temp 97.8 ??F (36.6 ??C) (Oral) Wt 70.7 kg (155 lb 14.4 oz) SpO2 97% BMI 27.62 kg/m?? General: The patient is pleasant and interactive. Speech is fluent. HEENT: The conjunctiva are moist and clear. Mouth and oropharynx are moist and clear. Neck: No lymphadenopathy. Cardiovascular: The heart tones are regular. There are no murmurs. Lungs: Clear to auscultation bilaterally. There is normal respiratory effort. Abdomen: There is no abdominal tenderness, masses, or organomegaly. Musculoskeletal: Joints are without tenderness, redness, warmth, or effusions. Dermatologic: Visualized skin is clear. There is no lower extremity edema. Neurologic: There are no focal neurological deficits. IMPRESSION: 1. Medicare annual wellness visit, subsequent 2. Chronic bilateral low back pain without sciatica 3. DDD (degenerative disc disease), lumbar 4. Hypercholesterolemia 5. Essential hypertension PLAN: There are no worrisome findings on today's examination. She is encouraged to stop smoking. Medications are refilled. Referral was provided to [facility]. Laboratory studies are obtained. Above was discussed at length with her and questions were answered. She was comfortable and in agreement with the plan. She will contact the clinic with updates in status as needed. documented in this encounter Plan of Treatment Scheduled Referrals Name Type Priority Associated Diagnoses Order S chedule REFERRAL SPINE & BACK Follow Up Routine Chronic bilateral l ow Ordered: 12/15/2018 back pain without sciatica DDD (degenerative disc disease), lumbar documented as of this encounter Procedures Procedure Name Priority Date/Time Associated Diagnosis Comme nts LIPID PROFILE Routine 12/15/2018 9:34 AM Hypercholeste rolemia Results for this CASCADE CDT Essential procedure are i n hypertension the results section. THYROID STIMULATING Routine 12/15/2018 9:34 AM Hyperchol esterolemia Results for this HORMONE CDT Essential procedure are i n hypertension the results section. BASIC METAB PROFILE Routine 12/15/2018 9:34 AM Hyperchol esterolemia Results for this CDT Essential procedure are i n hypertension the results section. CBC Routine 12/15/2018 9:34 AM Hypercholeste rolemia Results for this (HGB,HCT,WBC,RBC,ANDI CDT Essential procedu re are in TELET) hypertension the results section. documented in this encounter Results THYROID STIMULATING HORMONE (12/15/2018 9:34 AM CDT) athologist Signature TSH 2.480 0.358 - 12/15/2018 [facility] 3.740 12:37 PM T HEALTH UIU/mL LABORATORY Specimen Anatomical Collection Method / Collection Time Recei lisa Time (Source) Location / Volume Laterality Blood Venipuncture / 12/15/2018 9:34 12/15/2018 9:34 Unknown AM CDT AM CDT Anup Evans MD CHEMISTRY ORDERABLE Performing Organization Address City/State/ZIP Code Phon e Number [facility] [address] [place] [address] LABORATORY LIPID PROFILE CASCADE (12/15/2018 9:34 AM CDT) [facility] gist Method Time Signature SPECIMEN TYPE Fasting 12/15/2018 [facility] 12:37 PM T HEALTH LABORATORY CHOLESTEROL 148 <200 12/15/2018 [facility] mg/dL 12:37 PM [facility] LAB[facility] TRIGLYCERIDES 95 <150 12/15/2018 [facility] PROFILE mg/dL 12:[address] [facility] LABORATORY LDL CHOL, CALC 53 <100 12/15/2018 [facility] mg/dL 12:[address] [facility] HDL CHOLESTEROL 76 >40 mg/dL 12/15/2018 [facility] 12:37 PM CD[facility] LABORATORY CHOL/HDL RATIO 1.9 0.0 - 4.9 12/15/2018 [facility] 12:37 PM CDT HEALTH LABORATORY Specimen Anatomical Collection Method / Collection Time Recei lisa Time (Source) Location / Volume Laterality Blood Venipuncture / 12/15/2018 9:34 12/15/2018 9:34 Unknown AM CDT AM CDT Narrative [facility] LABORATORY - 12/15 12:37 PM CDT LDL CHOLESTEROL REFERENCE RANGES: (FOR PATIENTS W/O HEART DISEASE) <100 mg/dL = Optimal 100-129 mg/dL = Near/Above Optimal 130-159 mg/dL = Borderline High 160-189 mg/dL = High >/= 190 mg/dL = Very High Anup Evans MD CHEMISTRY ORDERABLE Performing Organization Address City/State/ZIP Code Phon e Number [facility] [address] [place] [address] LABORATORY (ABNORMAL) BASIC METAB PROFILE (12/15/2018 9:34 AM CDT) Analysis Performed At Patho logist Time Signature SODIUM 140 136 - 145 12/15/2018 [facility] mmol/L 12:[address] [facility] LABOR[facility] POTASSIUM 3.5 3.5 - 5.1 12/15/2018 [facility] mmol/L 12:[address] [facility] CHLORIDE 108 98 - 112 12/15/2018 [facility] mmol/L 12:[address] [facility] CARBON DIOXIDE 28 21 - 32 12/15/2018 [facility] mmol/L 12:[address] [facility] BUN (UREA 17 7 - 24 12/15/2018 [facility] NITRO) mg/dL 12:[address] [facility] CREATININE 1.00 0.55 - 12/15/2018 [facility] 1.02 mg/dL 12:[address] [facility] EST GFR 54 (L) >60 mL/min 12/15/2018 [facility] (CKD-EPI) 12:[address] [facility] EST GFR IF >60 >60 mL/min 12/15/2018 [facility] AM 12:[address] [facility] GLUCOSE 114 (H) 74 - 106 12/15/2018 [facility] mg/dL 12:[address] [facility] CALCIUM, SERUM 9.9 8.5 - 10.1 12/15/2018 [facility] mg/dL [facility]:[address] [facility] ANION GAP 4.0 0.0 - 15.0 12/15/2018 [facility] mmol/L 12:30 PM CDT HEALTH LABORATORY Specimen Anatomical Collection Method / Collection Time Recei lisa Time (Source) Location / Volume Laterality Blood Venipuncture / 12/15/2018 9:34 12/15/2018 9:34 Unknown AM CDT AM CDT Anup Evans MD CHEMISTRY ORDERABLE Performing Organization Address City/State/ZIP Code Phon e Number [facility] [address] [facility] [place] [address] LABORATORY CBC (HGB,HCT,WBC,RBC,PLATELET) (12/15/2018 9:34 AM CDT) athologist Signature WBC 6.3 4.3 - 10.8 12/15/2018 [facility] K/uL 12:16 PM CDT HEALTH LABORATORY RBC 4.73 4.20 - 12/15/2018 [facility] 5.40 M/uL 12:16 PM CDT HEALTH LABORATORY HEMOGLOBIN 14.7 12.0 - 12/15/2018 [facility] 16.0 gm/dL 12:16 PM T HEALTH LABORATORY HEMATOCRIT 44.2 36.0 - 12/15/2018 [facility] 48.0 % 12:16 PM CDT HEALTH LABORATORY MCV 93 80 - 100 12/15/2018 [facility] fl 12:16 PM CDT HEALTH LABORATORY MCH 31 27 - 33 pg 12/15/2018 [facility] 12:16 PM CDT HEALTH LABORATORY MCHC 33 33 - 36 12/15/2018 [facility] gm/dL 12:16 PM CDT HEALTH LABORATORY RDW 12.5 11.5 - 12/15/2018 [facility] 14.5 % 12:16 PM CDT HEALTH LABORATORY PLATELET COUNT 225 150 - 400 12/15/2018 [facility] K/UL 12:16 PM CDT HEALTH LABORATORY MPV 11.6 6.5 - 12 12/15/2018 [facility] 12:16 PM CDT HEALTH LABORATORY Specimen Anatomical Collection Method / Collection Time Recei lisa Time (Source) Location / Volume Laterality Blood Venipuncture / 12/15/2018 9:34 12/15/2018 9:34 Unknown AM CDT AM CDT Anup Evans MD HEMATOLOGY ORDERABLE Performing Organization Address City/[facility]/ZIP Code Phon e Number [facility] [address] [place] [address] LABORATORY documented in this encounter Visit Diagnoses Diagnosis Medicare annual wellness visit, subseque nt - Primary Routine general medical examination at a health care facility Chronic bilateral low back pain without sciatica DDD (degenerative disc disease), lumbar Degeneration of lumbar or lumbosacral in tervertebral disc Hypercholesterolemia Pure hypercholesterolemia Essential hypertension Unspecified essential hypertension documented in this encounter Care Teams Operator Coating Furnace Relationship Specialty Start Date End Date Anup Evans MD PCP - General Internal Medicine 02/23/[address] [place] [address] Dr Pérez [facility] [place] [address] Chauncey Bill [facility] PCP - Primary Care Clinic Clinic[address] PÉREZ [facility] [place] [address] Francesco Bonner MD 08/11/13 documented as of this encounter
--- OUTSIDE RECORDS SUMMARY | 2022-02-13 11:39 | XMS_ITS | Encounter Summary ---
:1940 Author Organization [facility] Address [address] [place] [address] Care Team Providers Name Role Phone Francesco Bonner MD Unavailable Unavailable Anup Evans MD Primary Care Provider [facility] [phone] Reason for Visit (Routine) - Closed Specialty Diagnoses / Procedures Referred By Contact Refer red To Contact Diagnoses Pulmonary nodules Anup Evans MD Procedures CT CHEST LOW DOSE W/O CON CT CHEST/THORAX W/O CON [address] [facility] [address] [facility] Internal Medicine [place], [place] [address] Referral ID Status Reason Start Date Expiration Date Visits Requ ested Visits Authorized [id number] Closed 12/02/2017 12/02/2018 1 1 Encounter Details Date Type Department Care Team Description 03/10/2018 Hospital Encounter [facility] [address] [place], [place] [address] Social History Tobacco Use Types Packs/Day [...] on file documented as of this encounter Plan of Treatment Not on filedocumented as of this encounter Procedures Procedure Name Priority Date/Time Associated Diagnosis Comme nts CT CHEST LOW DOSE Routine 03/10/2018 10:43 AM Pulmonary nodule s Results for this W/O CON CDT procedure are i n the results section. documented in this encounter Results CT CHEST LOW DOSE W/O CON (03/10/2018 10:43 AM CDT) Anatomical Region Laterality Modality Chest Computed Tomography Specimen (Source) Anatomical Collection Method Collection Time Re ceived Time Location / / Volume Laterality 03/10/2018 11:45 AM CDT Impressions 03/10/2018 4:48 PM CDT IMPRESSION: There are groundglass opacities, nodular opacities and tiny peripheral nodules of the lungs bilaterally that are unchanged from 2013. REPORT SIGNED BY DR. Marissa Rodgers Narrative 03/10/2018 4:48 PM CDT EXAM: ??Low-dose chest CT without IV contrast, 03/10/2018 CLINICAL DATA: ??Follow-up nodules COMPARISON: 12/02/2017, 09/08/2013 TECHNIQUE: ??Low-dose contiguous thin-se ction images of the thorax were obtained without intravenous contra st administration. FINDINGS: ??There are small paratracheal , precarinal and subcarinal lymph nodes. There is focal groundglass opacity withi n the posterior right upper lobe (image 49 on series 8), not significantly changed. There is a smaller area of groundglass o pacity within the posterolateral right upper lobe, more superiorly that is not significantly changed (image 41 on series 3). There are subtle nodular opacities withi n the superior right upper lobe that are unchanged. Subsegmental linear fibrosis of the ante rior left upper lobe. Tiny peripheral nodule within the superi or aspect of the left lower lobe (image 64 on series 3), not significantly changed. Tiny nodule within the posterior left up per lobe is not changed (image 58 on series 3). 3 mm nodule within the posterior left l ower lobe, inferiorly is unchanged (image 117 on series 3). Ill-defined groundglass opacity within t he posteromedial left lower lobe not significantly changed. The heart size is normal. No pericardial effusion. Coronary artery calcifications. There is atherosclerotic calcifications of the thoracic aorta which is normal in caliber. No lymphadenopathy. The adrenal glands and spleen are grossl y normal. There are parapelvic renal cysts not fully evaluated. Procedure Note Marissa Rodgers MD - 03/10/2018Forma tting of this note might be different from the original. EXAM: Low-dose chest CT without IV contr ast, 03/10/2018 CLINICAL DATA: Follow-up nodules COMPARISON: 12/02/2017, 09/08/2013 TECHNIQUE: Low-dose contiguous thin-sect ion images of the thorax were obtained without intravenous contra st administration. FINDINGS: There are small paratracheal, precarinal and subcarinal lymph nodes. There is focal groundglass opacity withi n the posterior right upper lobe (image 49 on series 8), not significantly changed. There is a smaller area of groundglass o pacity within the posterolateral right upper lobe, more superiorly that is not significantly changed (image 41 on series 3). There are subtle nodular opacities withi n the superior right upper lobe that are unchanged. Subsegmental linear fibrosis of the ante rior left upper lobe. Tiny peripheral nodule within the superi or aspect of the left lower lobe (image 64 on series 3), not significantly changed. Tiny nodule within the posterior left up per lobe is not changed (image 58 on series 3). 3 mm nodule within the posterior left l ower lobe, inferiorly is unchanged (image 117 on series 3). Ill-defined groundglass opacity within t he posteromedial left lower lobe not significantly changed. The heart size is normal. No pericardial effusion. Coronary artery calcifications. There is atherosclerotic calcifications of the thoracic aorta which is normal in caliber. No lymphadenopathy. The adrenal glands and spleen are grossl y normal. There are parapelvic renal cysts not fully evaluated. IMPRESSION IMPRESSION: There are groundglass opacit ies, nodular opacities and tiny peripheral nodules of the lungs bilaterally that are unchanged from 2014. REPORT SIGNED BY DR. Marissa Rodgers Anup Evans MD CT ORDERABLE documented in this encounter Visit Diagnoses Diagnosis Pulmonary nodules Other nonspecific abnormal finding of june ng field documented in this encounter Care Teams Medical Doctor Nuclear Medicine Relationship Specialty Start Date End Date Anup Evans MD PCP - General Internal Medicine 02/23/16 [address] [facility] [address] P[address]rez [facility] [place] [address] Chauncey Bill PCP - Primary Care Clinic [address] [place] [address] [place] [address] Francesco Bonner MD 08/11/13 documented as of this encounter
--- OUTSIDE RECORDS SUMMARY | 2022-02-13 11:39 | XMS_ITS | Encounter Summary ---
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 documented as of this encounter Plan of Treatment Not on filedocumented as of this encounter Visit Diagnoses Not on filedocumented in this encounter Care Teams Tobacco Grader Relationship Specialty Start Date End Date Anup Evans MD PCP - General Internal Medicine 02/23/[address] [place] [address] Dr Pérez [facility] [place] [address] Chauncey Bill PCP - Primary Care Clinic [address] [place] [address] [place] [address] Francesco Bonner MD 08/11/13 documented as of this encounter
--- OUTSIDE RECORDS SUMMARY | 2022-02-13 11:39 | XMS_ITS | Encounter Summary ---
:1940 Author Organization [facility] Address [address] [place] [address] Care Team Providers Name Role Phone Francesco Bonner MD Unavailable Unavailable Anup Evans MD Primary Care Provider [facility] [phone] Reason for Visit (Routine) - Open Specialty Diagnoses / Procedures Referred By Contact Refer red To Contact Diagnoses Atherosclerosis Other specified symptoms and signs involving the circulatory and respiratory systems Anup Evans MD Procedures [facility] CAROTID [address] Pérez [facility] Internal Medicine [place], [place] [address] Referral ID Status Reason Start Date Expiration Date Visits Requ ested Visits Authorized [id number] Open 05/24/2021 1 1 Encounter Details Date Type Department Care Team Description 06/25/2021 Ancillary Procedure [facility] Atherosclerosis; Heart & Vascular Other speci fied symptoms and signs involving the circulatory and respiratory systems Echocardiology - [place] [address] [place], [place] [address] Social History Tobacco Use Types [...] month, have you been in contact with Yes 06/25/2021 10:42 AM 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 documented as of this encounter Plan of Treatment Not on filedocumented as of this encounter Procedures Procedure Name Priority Date/Time Associated Diagnosis Comme nts [facility] CAROTID US Routine 06/25/2021 11:58 AM Atherosc lerosis Results for this INSURANCE SPECIAL AGENT Other specified procedure ar e in symptoms and signs the resul ts involving the section. circulatory and respiratory systems documented in this encounter Results [facility] CAROTID US (06/25/2021 11:58 AM INSURANCE SPECIAL AGENT) Specimen (Source) Anatomical Collection Method Collection Time Re ceived Time Location / / Volume Laterality 06/25/2021 10:46 AM INSURANCE SPECIAL AGENT Narrative TEST - 06/25/2021 2:47 PM INSURANCE SPECIAL AGENT Patient Info Name: ? Jennifer Cole Age: ? 81 years : ? 1940 Gender: ? Female Accession #: ? [id number] Ht: ? 62 in Wt: ? 166 lb BSA: ? 1.84 m2 Technical Quality: ? Diagnostic qual ity Exam Date: ? 06/25/2021 10:46 AM Primary Loc: ? [facility] Patient Status: ? Outpatient Exam Type: ? [facility] CAROTID US Study Info Indications ?Bruit, ??CAD, ??HTN, ??history of smoking, ??unequal blood pressures between right and left arms. - The extracranial carotid arteries are im aged in the longitudinal and transverse planes from the proximal neck to the mandible utilizing B-mode ultrasound and Doppler spectral analysis and color flow Doppler where deemed appropriate. The vertebral arteries are imaged in the longitudinal plane only. The subclavian arteries are evaluated at their proximal segments. Noteman: ? Larry CESPEDES, RVT Referring Physician: ? [facility] Ordering Physician: ? Anup Evans Primary Care Physician: ? Anup hilario History/Risk Factors Hypertension: ? Yes Coronary Artery Disease (CAD) ? Yes Tobacco Use: ? Current - Some Days Measurements Name ? Value ?Normal Right Doppler RT Brachial Sys ? 108 mmHg ? Right Prox SCA PSV ?397 cm/s ? Right Prox CCA EDV ? 13 cm/s ? Right Mid CCA EDV ?19 cm/s ? Right Distal CCA EDV ? 21 cm/s ? Right Prox ICA EDV ? 12 cm/s ? <40 Right Mid ICA EDV ?13 cm/s ? <40 Right Distal ICA EDV ? 17 cm/s ? <40 RT ICA/CCA Ratio ?0.58 ? <2.00 Right Prox Vert EDV ? 8 cm/s ? RT Brachial Vidal ? 83 mmHg ? Right Prox CCA PSV ? 58 cm/s ? Right Mid CCA PSV ?83 cm/s ? Right Distal CCA PSV ? 89 cm/s ? Right Prox ICA PSV ? 52 cm/s ?<125 Right Mid ICA PSV ?47 cm/s ?<125 Right Distal ICA PSV ? 52 cm/s ?<125 Right Prox ECA PSV ?119 cm/s ? Right Prox Vert PSV ?33 cm/s Name ? Value ?Normal Left Doppler LT Brachial Sys ? 143 mmHg ? Left Prox SCA EDV ?96 cm/s ? Left Prox CCA EDV ?10 cm/s ? Left Mid CCA EDV ? 20 cm/s ? Left Distal CCA EDV ?19 cm/s ? Left Prox ICA EDV ?13 cm/s ? <40 Left Mid ICA EDV ? 15 cm/s ? <40 Left Distal ICA EDV ?18 cm/s ? <40 LT ICA/CCA Ratio ?0.86 ? <2.00 Left Prox Vert EDV ? 16 cm/s ? LT Brachial Vidal ? 86 mmHg ? Left Prox CCA PSV ?83 cm/s ? Left Mid CCA PSV ? 75 cm/s ? Left Distal CCA PSV ?74 cm/s ? Left Prox ICA PSV ?50 cm/s ?<125 Left Mid ICA PSV ? 64 cm/s ?<125 Left Distal ICA PSV ?55 cm/s ?<125 Left Prox ECA PSV ? 102 cm/s ? Left Prox Vert PSV ? 48 cm/s Report Signatures Finalized by Prasanna ??Jessee on 02:47 PM Summary ??* There is no significant atheroscler otic plaque noted in the RIGHT internal carotid artery. ??* There is no significant atheroscler otic plaque noted in the LEFT internal carotid artery. 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 Right Carotid Findings ??There is no significant atherosclerot ic plaque noted in the RIGHT internal carotid artery. Normal Doppler flow [place] noted in the right external carotid artery. Antegrade Doppler flow n oted in the right vertebral artery. Moderate to severe (>50%) RIGHT subclavi an artery stenosis (difficult visualization). Left Carotid Findings ??There is no significant atherosclerot ic plaque noted in the LEFT internal carotid artery. Normal Doppler flow [place] noted in the left external carotid artery. Normal antegrade Doppler flow noted in the left vertebral artery. Normal triphasic Doppler flow no ojse in the left subclavian artery. Procedure Note Prasanna Hooks MD - 06/25/2021Formatt ing of this note might be different from the original. Patient Info Name: Jennifer Cole Age: 81 years : 1940 Gender: Female Ht: 62 in Wt: 166 lb BSA: 1.84 m2 Technical Quality: Diagnostic quality Exam Date: 06/25/2021 10:46 AM Primary Loc: [facility] Patient Status: Outpatient Exam Type: [facility] CAROTID US Study Info Indications Bruit, CAD, HTN, history of smoking, un equal blood pressures between right and left arms. - The extracranial carotid arteries are im aged in the longitudinal and transverse planes from the proximal neck to the mandible utilizing B-mode ultrasound and Doppler spectral analysis and color flow Doppler where deemed appropriate. The vertebral arteries are imaged in the longitudinal plane only. The subclavian arteries are evaluated at their proximal segments. Noteman: Larry CESPEDES, RVT Referring Physician: Anup Evans Ordering Physician: Anup Evans Primary Care Physician: Anup Evans History/Risk Factors Hypertension: Yes Coronary Artery Disease (CAD) Yes Tobacco Use: Current - Some Days Measurements Name Value Normal Right Doppler RT Brachial Sys 108 mmHg Right Prox SCA PSV 397 cm/s Right Prox CCA EDV 13 cm/s Right Mid CCA EDV 19 cm/s Right Distal CCA EDV 21 cm/s Right Prox ICA EDV 12 cm/s <40 Right Mid ICA EDV 13 cm/s <40 Right Distal ICA EDV 17 cm/s <40 RT ICA/CCA Ratio 0.58 <2.00 Right Prox Vert EDV 8 cm/s RT Brachial Vidal 83 mmHg Right Prox CCA PSV 58 cm/s Right Mid CCA PSV 83 cm/s Right Distal CCA PSV 89 cm/s Right Prox ICA PSV 52 cm/s <125 Right Mid ICA PSV 47 cm/s <125 Right Distal ICA PSV 52 cm/s <125 Right Prox ECA PSV 119 cm/s Right Prox Vert PSV 33 cm/s Name Value Normal Left Doppler LT Brachial Sys 143 mmHg Left Prox SCA EDV 96 cm/s Left Prox CCA EDV 10 cm/s Left Mid CCA EDV 20 cm/s Left Distal CCA EDV 19 cm/s Left Prox ICA EDV 13 cm/s <40 Left Mid ICA EDV 15 cm/s <40 Left Distal ICA EDV 18 cm/s <40 LT ICA/CCA Ratio 0.86 <2.00 Left Prox Vert EDV 16 cm/s LT Brachial Vidal 86 mmHg Left Prox CCA PSV 83 cm/s Left Mid CCA PSV 75 cm/s Left Distal CCA PSV 74 cm/s Left Prox ICA PSV 50 cm/s <125 Left Mid ICA PSV 64 cm/s <125 Left Distal ICA PSV 55 cm/s <125 Left Prox ECA PSV 102 cm/s Left Prox Vert PSV 48 cm/s Report Signatures Finalized by Prasanna Hooks on 06/25/2021 02:47 PM Summary * There is no significant atherosclerot ic plaque noted in the RIGHT internal carotid artery. * There is no significant atherosclerot ic plaque noted in the LEFT internal carotid artery. * Moderate to severe (>50%) RIGHT subcl elsa artery stenosis (difficult visualization). Right Carotid Findings There is no significant atherosclerotic plaque noted in the RIGHT internal carotid artery. Normal Doppler flow [place] noted in the right external carotid artery. Antegrade Doppler flow n oted in the right vertebral artery. Moderate to severe (>50%) RIGHT subclavi an artery stenosis (difficult visualization). Left Carotid Findings There is no significant atherosclerotic plaque noted in the LEFT internal carotid artery. Normal Doppler flow [place] noted in the left external carotid artery. Normal antegrade Doppler flow noted in the left vertebral artery. Normal triphasic Doppler flow no jose in the left subclavian artery. Anup Evans MD CV VASCULAR PROCEDURES Performing Organization Address City/State/ZIP Code Phon e Number TEST documented in this encounter Visit Diagnoses Diagnosis Atherosclerosis Generalized and unspecified atherosclero sis Other specified symptoms and signs invol ving the circulatory and respiratory systems documented in this encounter Care Teams Depalletizer Operator Relationship Specialty Start Date End Date Anup Evans MD PCP - General Internal Medicine 02/23/[address] [place] [address] Dr P[address]rez [address] [place] [address] Chauncey Bill [facility] PCP - Primary Care Clinic [address] P[address] [place] [address] Francesco Bonner MD 08/11/13 documented as of this encounter
--- OUTSIDE RECORDS SUMMARY | 2022-02-13 11:39 | XMS_ITS | Encounter Summary ---
:1940 Author Organization [facility] Address [address] [place] [address] Care Team Providers Name Role Phone Francesco Bonner MD Unavailable Unavailable Anup Evans MD Primary Care Provider [facility] Unavailable [phone] Encounter Details Date Type Department Care Team Description 06/25/2021 Travel Social History Tobacco Use Types Packs/Day [...] in contact with Yes 06/25/2021 10:42 AM RN ICU someone who was confirmed or suspected to have Coronavirus / COVID-19? documented as of this encounter Plan of Treatment Not on filedocumented as of this encounter Visit Diagnoses Not on filedocumented in this encounter Care Teams Metal Plater Relationship Specialty Start Date End Date Anup Evans MD PCP - General Internal Medicine 02/23/[address] [place] [address] Dr Pérez [facility] Internal Medicine [place] [address] Chauncey Bill PCP - Primary Care Clinic [address] [facility] P[address]REZ [facility] [place] [address] Francesco Bonner MD 08/11/13 documented as of this encounter
--- OUTSIDE RECORDS SUMMARY | 2022-02-13 11:39 | XMS_ITS | Encounter Summary ---
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 documented as of this encounter Plan of Treatment Not on filedocumented as of this encounter Visit Diagnoses Not on filedocumented in this encounter Care Teams Fat Pressroom Worker Relationship Specialty Start Date End Date Anup Evans MD PCP - General Internal Medicine 02/23/[address] [place] [address] Dr Pérez [facility] [place] [address] Chauncey Bill PCP - Primary Care Clinic [address] [place] [address] [place] [address] Francesco Bonner MD 08/11/13 documented as of this encounter
--- OUTSIDE RECORDS SUMMARY | 2022-02-13 11:39 | XMS_ITS | Encounter Summary ---
:[address] [facility] Address [address] [place] [address] Care Team Providers Name Role Phone Francesco Bonner MD Unavailable Unavailable Anup Evans MD Primary Care Provider [facility] [phone] Reason for Referral (Routine) - Closed Specialty Diagnoses / Procedures Referred By Contact Refer red To Contact Diagnoses Lung nodule Anup Evans MD Procedures CT CHEST LOW DOSE W/O CON [address] [facility] [address] Pérez [facility] Internal Medicine [place], [place] [address] Referral ID Status Reason Start Date Expiration Date Visits Requ ested Visits Authorized [id number] Closed 06/17/2018 06/17/2019 1 1 ARCHITECT Reason for Visit (Routine) - Closed Specialty Diagnoses / Procedures Referred By Contact Refer roxi To Contact Diagnoses Lung nodule Anup Evans MD Procedures CT CHEST LOW DOSE W/O CON [address] [facility] [address] Pérez [facility] Internal Medicine [place], [place] [address] Referral ID Status Reason Start Date Expiration Date Visits Requ ested Visits Authorized [id number] Closed 06/17/2018 06/17/2019 1 1 Encounter Details Date Type Department Care Team Description 06/18/[address] [facility] [address] [place], [place] [address] Social History Tobacco Use Types [...] Comme nts CT CHEST LOW DOSE Routine 06/18/2018 9:29 AM Lung nodule Resu lts for this W/O CON UX ARCHITECT procedure are i n the results section. documented in this encounter Results CT CHEST LOW DOSE W/O CON (06/18/2018 9:29 AM UX ARCHITECT) Anatomical Region Laterality Modality Chest Computed Tomography Specimen (Source) Anatomical Collection Method Collection Time Re ceived Time Location / / Volume Laterality 06/18/2018 11:09 AM UX ARCHITECT Impressions 06/18/2018 11:42 AM UX ARCHITECT IMPRESSION: 1. ?? Each of the pulmonary nodules and groundglass opacities reported on the prior examinations are stable when compared to exams dating back to December 02, 2017.. One or more of these subtle groundglass o pacities were not definitely seen in 201 4. Based on published guidelines yearly follow-up to confirm stability for 4 years is recommended. 2. ??No new evidence of active disease i n the chest. REPORT SIGNED BY DR. Perico Diane Narrative 06/18/2018 11:42 AM UX ARCHITECT CLINICAL INFORMATION::Pulmonary nodules and groundglass opacities seen on prior exams ICD 10: ??R91.1 Solitary pulmonary nodul e TECHNIQUE: A routine unenhanced CT scan of the thorax was performed. ??Specifically, thin-section contiguous transaxial images were obtained through the thorax using low dose technique. ??Coronal reform ations were also obtained through the th orax. ??No intravenous contrast was given. COMPARISON:March 10, 2018, December 02, 2017 , September 08, 2013 FINDINGS: Mediastinum: No pathologically enlarged mediastinal lymph nodes are seen . The heart size is normal. ?? There is no significant pericardial effusion. The thoracic aorta is not dilated. Moderate amount of coronary artery calci fication Pulmonary brant: The pulmonary vasculatur e is normal in appearance. ??No pathologically enlarged hilar lymph nodes are seen. Lungs: Small groundglass opacity measuri ng 9 mm in diameter in the posterior medial aspect of the left upper lobe centered on image 44 series 3 is unchanged since exams dating back to September 08, 2013. Less than 4 mm peripheral nodule in the right upper lobe is also unchanged-image 33 series 3. Similar-appearing 9 mm groundglass opaci ty in the right upper lobe on image 34 series 3 is unchanged since exams dating back to December 02, 2017. A similar finding was probably present on image #40 series 5 on the exam dated September 08, 2013, but it was more subtle. A smaller groundglass opacities in the right lung apex on image 32 and 34 unchanged since exams dated back to December 29, 2017, not seen on the exam 2004. The other small peripheral nodular densi ties mentioned in prior reports of unchanged or less evident consistent with a benign etiology. For example: The 3 mm nodule seen in the left lower lobe on image 115 series 3 Extrathoracic findings: No chest wall ab normalities are seen . ??No significant finding is seen in the upper abdomen as partially visualized on this exam Procedure Note Perico Diane MD - 06/18/2018Forma tting of this note might be different from the original. CLINICAL INFORMATION::Pulmonary nodules and groundglass opacities seen on prior exams ICD 10: R91.1 Solitary pulmonary nodule TECHNIQUE: A routine unenhanced CT scan of the thorax was performed. Specifically, thin-section contiguous transaxial images were obtained through the thorax using low dose technique. Coronal reformations were also obtained through the thorax. No int ravenous contrast was given. COMPARISON:March 10, 2018, December 02, 2017 , September 08, 2013 FINDINGS: Mediastinum: No pathologically enlarged mediastinal lymph nodes are seen . The heart size is normal. There is no significant pericardial effusion. The thoracic aorta is not dilated. Moderate amount of coronary artery calci fication Pulmonary brant: The pulmonary vasculatur e is normal in appearance. No pathologically enlarged hilar lymph nodes are seen. Lungs: Small groundglass opacity measuri ng 9 mm in diameter in the posterior medial aspect of the left upper lobe centered on image 44 series 3 is unchanged since exams dating back to September 08, 2013. Less than 4 mm peripheral nodule in the right upper lobe is also unchanged-image 33 series 3. Similar-appearing 9 mm groundglass opaci ty in the right upper lobe on image 34 series 3 is unchanged since exams dating back to December 02, 2017. A similar finding was probably present on image #40 series 5 on the exam dated September 08, 2013, but it was more sub tle. A smaller groundglass opacities in the right lung apex on image 32 and 34 unchanged since exams dated back to December 29, 2017, not seen on the exam 2003. The other small peripheral nodular densi ties mentioned in prior reports of unchanged or less evident consistent with a benign etiology. For example: The 3 mm nodule seen in the left lower lobe on image 115 series 3 Extrathoracic findings: No chest wall ab normalities are seen . No significant finding is seen in the upper abdomen as partially visualized on this exam IMPRESSION IMPRESSION: 1. Each of the pulmonary nodules and curtis undglass opacities reported on the prior examinations are stable when compared to exams dating back to December 02, 2017.. One or more of these subtle groundglass opacities were not definitely seen in 2013. Based on publis hed guidelines yearly follow-up to confirm stability for 4 years is recommended. 2. No new evidence of active disease in the chest. REPORT SIGNED BY DR. Perico Diane Anup Evans MD CT ORDERABLE documented in this encounter Visit Diagnoses Diagnosis Lung nodule Solitary pulmonary nodule documented in this encounter Care Teams Real Estate Appraiser Supervisor Relationship Specialty Start Date End Date Anup Evans MD PCP - General Internal Medicine 02/23/[address] [place] [address] Dr Pérez [address] [place] [address] [facility] PCP - Primary Care Clinic Clinic-[address] P[address]REZ [address] [facility] [place] [address] Francesco Bonner MD 08/11/13 documented as of this encounter
--- OUTSIDE RECORDS SUMMARY | 2022-02-13 11:39 | XMS_ITS | Encounter Summary ---
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 documented as of this encounter Plan of Treatment Not on filedocumented as of this encounter Visit Diagnoses Not on filedocumented in this encounter Care Teams Auto Polisher Relationship Specialty Start Date End Date Anup Evans MD PCP - General Internal Medicine 02/23/[address] [place] [address] Dr Pérez [facility] [place] [address] [place] PCP - Primary Care Clinic [address] [place] [address] [place] [address] Francesco Bonner MD 08/11/13 documented as of this encounter
--- OUTSIDE RECORDS SUMMARY | 2022-02-13 11:39 | XMS_ITS | Encounter Summary ---
:1940 Author Organization [facility] Address [address] [place] [address] Care Team Providers Name Role Phone Francesco Bonner MD Unavailable Unavailable Anup Evans MD Primary Care Provider [facility] [phone] Reason for Visit Reason Comments Skin Problem itching Encounter Details Date Type Department Care Team Description 11/07/[address] [facility] [address] [place], [place] [address] Social History Tobacco Use Types [...] Sig Dispensed Refills Start Date End Date aspirin 81 mg oral Take 81 mg by mouth 0 11/27/2017 enteric coated tablet once daily. coenzyme Q10 200 mg oral Take 1 capsule (200 90 capsule 3 11/27/2017 Cap mg) by mouth once daily. orphenadrine citrate 100 Take 1 tablet by 30 tablet 3 08/1411/27/2017 mg oral TbSR mouth twice a day as needed. documented as of this encounter ED Notes Dipika Gomez RN - 11/07/2017 8:40 PM CDT Pt to triage desk and refuses to stay to see MD. Instructed pt that if sxs worsen to return. Pt verbalized understanding and left ambulatory to home withhusband. AMA form signed. Milad Mills RN - 11/07/2017 7:56 PM CDT Swelling noted to face and nose, denies issues with breathing or swallowing. Speaking in full sentences, O2 sats 99% Ra Milad Mills RN - 11/07/2017 7:54 PM CDT Benadryl taken last at 0600a and visteral at 11a Dipika Gomez RN - 11/07/2017 7:25 PM CDT PT awoke ithcing today and went to . They gave her vistaril and sent her home. Since has felt worse with nausea and continues to itch. documented in this encounter Plan of Treatment Not on filedocumented as of this encounter Visit Diagnoses Not on filedocumented in this encounter Care Teams Foreign Food Specialty Cook Relationship Specialty Start Date End Date Anup Evans MD PCP - General Internal Medicine 02/23/[address] [place] [address] Dr Pérez [facility] Internal Medicine [place] [address] [place] PCP - Primary Care Clinic [address] [place] [address] [place] [address] Francesco Bonner MD 08/11/13 documented as of this encounter
--- OUTSIDE RECORDS SUMMARY | 2022-02-13 11:39 | XMS_ITS | Encounter Summary ---
:1940 Author Organization [facility] Address [address] [place] [address] Care Team Providers Name Role Phone Francesco Bonner MD Unavailable Unavailable Anup Evans MD Primary Care Provider [facility] Unavailable [phone] Reason for Visit Reason Comments Lab draw (Routine) - Closed Specialty Diagnoses / Procedures Referred By Contact Refer red To Contact Diagnoses Hypokalemia Anup Evans MD Procedures POTASSIUM, SERUM [address] [place] [address] Internal Medicine [place], [place] [address] Referral ID Status Reason Start Date Expiration Date Visits Requ ested Visits Authorized [id number] Closed 07/04/2020 07/04/2021 1 1 Encounter Details Date Type Department Care Team Description 07/04/2020 [facility] Procedure [facility] Internal Hypokalemia Medicine - [facility] [address] [place] [address] Social History Tobacco Use Types Packs/Day [...] with No / Unsure 07/04/2020 11:19 AM REFERENCE AND INSTRUCTION LIBRARIAN someone who was confirmed or suspected to have Coronavirus / COVID-19? documented as of this encounter Plan of Treatment Not on filedocumented as of this encounter Procedures Procedure Name Priority Date/Time Associated Diagnosis Comme nts POTASSIUM Routine 07/04/2020 11:20 AM Hypokalemia Results for this REFERENCE AND INSTRUCTION LIBRARIAN procedure are i n the results section . documented in this encounter Results POTASSIUM, SERUM (07/04/2020 11:20 AM REFERENCE AND INSTRUCTION LIBRARIAN) athologist Signature POTASSIUM 3.9 3.5 - 5.1 07/04/[address] [facility] mmol/L 2:25 PM REFERENCE AND INSTRUCTION LIBRARIAN [facility] Specimen Anatomical Collection Method / Collection Time Recei lisa Time (Source) Location / Volume Laterality Blood Venipuncture / 07/04/2020 11:20 1 Unknown AM REFERENCE AND INSTRUCTION LIBRARIAN 11:20 AM REFERENCE AND INSTRUCTION LIBRARIAN Anup Evans MD CHEMISTRY ORDERABLE Performing Organization Address City/State/[facility] Code Phon e Number [facility] [address] [place] [address] LABORATORY documented in this encounter Visit Diagnoses Diagnosis Hypokalemia Hypopotassemia documented in this encounter Care Teams Vibration Technician Relationship Specialty Start Date End Date Anup Evans MD PCP - General Internal Medicine 02/23/[address] [place] [address] Dr Pérez 104 Internal Medicine [place] [address] [facility] PCP - Primary Care Clinic [address] P[address]REZ [address] [place] [address] Francesco Bonner MD 08/11/13 documented as of this encounter
--- OUTSIDE RECORDS SUMMARY | 2022-02-13 11:39 | XMS_ITS | Encounter Summary ---
:1940 Author Organization [facility] Address [address] [place] [address] Care Team Providers Name Role Phone Francesco Bonner MD Unavailable Unavailable Anup Evans MD Primary Care Provider [facility] Unavailable [phone] Encounter Details Date Type Department Care Team Description 12/15/2018 Travel Social History Tobacco Use Types Packs/Day [...] on filedocumented in this encounter Care Teams Steel Pan Form Placing Supervisor Relationship Specialty Start Date End Date Anup Evans MD PCP - General Internal Medicine 02/23/[address] [place] [address] Dr Berman Internal Medicine [place] [address] [facility] PCP - Primary Care Clinic [address] [place] [address] [place] [address] Francesco Bonner MD 08/11/13 documented as of this encounter
--- OUTSIDE RECORDS SUMMARY | 2022-02-13 11:39 | XMS_ITS | Encounter Summary ---
:[address] 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 documented as of this encounter Plan of Treatment Not on filedocumented as of this encounter Visit Diagnoses Not on filedocumented in this encounter Care Teams Certified Medical Coder Relationship Specialty Start Date End Date Anup Evans MD PCP - General Internal Medicine 02/23/[address] [place] [address] Dr Pérez [facility] Internal Medicine [place] [address] [place] PCP - Primary Care Clinic 6 [facility] PÉREZ [facility] [place] [address] Francesco Bonner MD 08/11/13 documented as of this encounter
--- OUTSIDE RECORDS SUMMARY | 2022-02-13 11:39 | XMS_ITS | Encounter Summary ---
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 documented as of this encounter Plan of Treatment Not on filedocumented as of this encounter Visit Diagnoses Not on filedocumented in this encounter Care Teams French Comber Relationship Specialty Start Date End Date Anup Evans MD PCP - General Internal Medicine 02/23/[address] [place] [address] Dr Pérez [facility] [place] [address] [place] PCP - Primary Care Clinic [address] [place] [address] [place] [address] Francesco Bonner MD 08/11/13 documented as of this encounter
--- OUTSIDE RECORDS SUMMARY | 2022-02-13 11:39 | XMS_ITS | Encounter Summary ---
:1940 Author Organization [facility] Address [address] [place] [address] Care Team Providers Name Role Phone Francesco Bonner MD Unavailable Unavailable Anup Evans MD Primary Care Provider [facility] [phone] Reason for Referral (Routine) - Closed Specialty Diagnoses / Procedures Referred By Contact Refer red To Contact Diagnoses Pulmonary nodule Tobacco use Anup Evans MD Procedures CT CHEST/THORAX W/O CON [address] [place] [address] Dr Berman Internal Medicine [place], [place] [address] Referral ID Status Reason Start Date Expiration Date Visits Requ ested Visits Authorized [id number] Closed 11/27/2017 11/27/2018 1 1 Reason for Visit (Routine) - Closed Specialty Diagnoses / Procedures Referred By Contact Refer red To Contact Diagnoses Pulmonary nodule Tobacco use Anup Evans MD Procedures CT CHEST/THORAX W/O CON [address] [place] [address] Dr Berman Internal Medicine [place], [place] [address] Referral ID Status Reason Start Date Expiration Date Visits Requ ested Visits Authorized [id number] Closed 11/27/2017 11/27/2018 1 1 Encounter Details Date Type Department Care Team Description 12/02/2017 Hospital Encounter [facility] [address] [place], [place] [address] Social History Tobacco Use Types [...] Priority Date/Time Associated Diagnosis Comme nts CT CHEST/THORAX W/O Routine 12/02/2017 8:03 AM Pulmonary nodule Results for this CON CDT Tobacco use procedure are i n the results section. documented in this encounter Results Prebon[facility] - CT CHEST W/O CONTRAST (12/02/2017 8:03 AM CDT) Anatomical Region Laterality Modality Chest Computed Tomography Specimen (Source) Anatomical Collection Method Collection Time Re ceived Time Location / / Volume Laterality 12/02/2017 8:06 AM CDT Impressions 12/02/2017 8:14 AM CDT IMPRESSION: There are two 7 mm groundglass opacities in the right upper lobe which are new since prior CT. The 12 and 13 mm groundglass opacities in the right upper lobe are grossly unchanged compared to prior exam in retrospect. There are scattered 2-3 mm solid pulmonary nodules seen in both lungs which are relatively stable. Recommend short-term follow-up low-dose chest CT in 3 months to assess stability of the groundglass opacities. There is no nodu le identified in the right middle lobe. REPORT SIGNED BY SEAN STEEL M.D. Narrative 12/02/2017 8:14 AM CDT EXAM: CT CHEST WITHOUT CONTRAST DATE: 12/02/2017 7:50 AM. CLINICAL DATA: Solitary pulmonary nodule in the inferior right middle lobe. ICD 10: ??R91.1 Solitary pulmonary nodul e Z72.0 Tobacco use COMPARISON STUDY: CT pulmonary angiograp hy from 09/08/2013. Portable AP chest from 05/09/2016. TECHNIQUE: A routine noncontrast CT scan of the chest was performed. ??Contiguous axial imaging was performed through the thorax. ??Coronal reformatted images were also obtained. FINDINGS: Mediastinum: There is no mediastinal or hilar lymphadenopathy seen. Mild atherosclerotic calcifications thoracic aorta with some tortuosity. Heart is normal in size. Lungs: 2 mm subpleural nodule right uppe r lobe series 3 image 29, unchanged. There is a 12 mm groundglass opacity in the posterior right upper lobe on series 3 image 29. There is a 7 mm groundglass opac ity seen in the right upper lobe series 3 image 26. There is also a 7 mm groundglass opacity in the right upper lobe on series 3 image 26. 13 mm solid pulmonary nodule medial aspect right upper lobe ser ies 3 image 33 similar to prior exam. Th ere is a 3 mm partially solid nodule right upper lobe series 3 image 26. 2 mm solid pulmonary nodule superior segment left lower lobe series 3 image 40. 3 mm gera d pulmonary nodule left lower lobe serie s 3 image 73, stable. Pleural Spaces: There is no pleural effu melissa. ??No abnormal pleural thickening. Other Findings: No axillary lymphadenopa thy.No pericardial effusion. ??Imaging through the upper abdomen is unremarkable. No acute osseous abnormality. Procedure Note Sean Steel MD - 8 EXAM: CT CHEST WITHOUT CONTRAST DATE: 12/02/2017 7:50 AM. CLINICAL DATA: Solitary pulmonary nodule in the inferior right middle lobe. ICD 10: R91.1 Solitary pulmonary nodule Z72.0 Tobacco use COMPARISON STUDY: CT pulmonary angiograp hy from 09/08/2013. Portable AP chest from 05/09/2016. TECHNIQUE: A routine noncontrast CT scan of the chest was performed. Contiguous axial imaging was performed through the thorax. Coronal reformatted images were also obtained. FINDINGS: Mediastinum: There is no mediastinal or hilar lymphadenopathy seen. Mild atherosclerotic calcifications thoracic aorta with some tortuosity. Heart is normal in size. Lungs: 2 mm subpleural nodule right uppe r lobe series 3 image 29, unchanged. There is a 12 mm groundglass opacity in the posterior right upper lobe on series 3 image 29. There is a 7 mm groundglass opacity seen in the right upper lobe series 3 image 2 6. There is also a 7 mm groundglass opacity in the right upper lobe on series 3 image 26. 13 mm solid pulmonary nodule medial aspect right upper lobe series 3 image 33 similar to prior exam. There is a 3 mm p artially solid nodule right upper lobe series 3 image 26. 2 mm solid pulmonary nodule superior segment left lower lobe series 3 image 40. 3 mm solid pulmonary nodule left lower lobe series 3 image 73, stable. Pleural Spaces: There is no pleural effu melissa. No abnormal pleural thickening. Other Findings: No axillary lymphadenopa thy.No pericardial effusion. Imaging through the upper abdomen is unremarkable. No acute osseous abnormality. IMPRESSION IMPRESSION: There are two 7 mm groundglass opacities in the right upper lobe which are new since prior CT. The 12 and 13 mm groundglass opacities in the right upper lobe are grossly unchanged compared to prior exam in retrospect. There are scattered 2-3 mm solid pulmona ry nodules seen in both lungs which are relatively stable. Recommend short-term follow-up low-dose chest CT in 3 months to assess stability of the groundglass opacities. There is no nodule identified in the right middle lobe. REPORT SIGNED BY SEAN STEEL M.D. Anup Evans MD CT ORDERABLE documented in this encounter Visit Diagnoses Diagnosis Pulmonary nodule Solitary pulmonary nodule Tobacco use Tobacco use disorder documented in this encounter Care Teams Bowling Ball Assembler Relationship Specialty Start Date End Date Anup Evans MD PCP - General Internal Medicine 02/23/[address] [place] [address] Dr Pérez [facility] [place] [address] [place] [facility] PCP - Primary Care Clinic [address] [place] [address] DR PÉREZ [address] [place] [address] Francesco Bonner MD 08/11/13 documented as of this encounter
--- OUTSIDE RECORDS SUMMARY | 2022-02-13 11:39 | XMS_ITS | Encounter Summary ---
:1940 Author Organization [facility] Address [address] [place] [address] Care Team Providers Name Role Phone Francesco Bonner MD Unavailable Unavailable Yuli Watkins MD Primary Care Provider [facility] [phone] Reason for Referral (Routine) - Closed Specialty Diagnoses / Procedures Referred By Contact Refer red To Contact Diagnoses Pulmonary nodule Tobacco use Yuli Watkins MD Procedures CT CHEST/THORAX W/O [address] [facility] [place], [place] [address] Referral ID Status Reason Start Date Expiration Date Visits Requ ested Visits Authorized [id number] Closed 11/27/2017 11/27/2018 1 1 (Routine) - Closed Specialty Diagnoses / Procedures Referred By Contact Refer roxi To Contact Diagnoses Hypercholesterolemia Yuli Watkins MD Procedures LIPID PROFILE [address] [facility] [place], [place] [address] Referral ID Status Reason Start Date Expiration Date Visits Requ ested Visits Authorized [id number] Closed 11/27/2017 11/27/2018 1 1 Reason for Visit Reason Comments Follow up medication Encounter Details Date Type Department Care Team Description 11/27/2017 Office Visit [facility] Yuli Watkins, Alyol meghannia (Primary Dx); [facility] - Pulmonary nodule; [facility] [address] [facility] Tobacco use; [address] [facility] [address] Internal [place] Medicine [address] [place], [place] [phone] [id number] Social History Tobacco Use Types Packs/Day Years [...] Sign Reading Time Taken Comments Blood Pressure 130/66 11/27/2017 1:21 PM CDT Pulse 77 11/27/2017 1:21 PM CDT Temperature 36.7 ??C (98.1 ??F) 11/27/2017 1:21 PM CDT Respiratory Rate - - Oxygen Saturation 96% 11/27/2017 1:21 PM CDT Inhaled Oxygen Concentration - - Weight 70.3 kg (154 lb 14.4 oz) 11/27/2017 1:21 PM CDT Height - - Body Mass Index 27.44 07/10/2016 9:30 AM SOUND PERSON documented in this encounter Progress Notes Yuli Watkins MD - 11/27/2017 1:30 PM CDT Images from the original note were not included. ?? Jennifer Cole is a pleasant 77 y.o. year old female seen with [facility] on 11/27/17. CHIEF COMPLAINT: Follow-up multiple complex medical problems and medications HPI: She has resumed rosuvastatin. She would like to follow-up on her cholesterol today. Pulmonary nodules had been identified previously. She is due for follow-up CT scan. She continues to use tobaccoproducts. She is not interested in pursuing tobacco cessation. She has been experiencing no chest shruti ns or heart palpitations. No shortness of breath or other respiratory concerns. She has a mild intermittent cough which she feels has been stable. There is been no hemoptysis. She notes no claudication. She had noted some easier bruising on the upper extremities when she had been on aspirin. She has self discontinued aspirin. ACTIVE PROBLEM LIST: Diagnosis ??? DDD (degenerative [...] patient in the 67th percentile ??? Pulmonary nodule 05/07/17 5 x 3 mm pulmonary nodule in the inferior right middle lobe (new from 09/13) > 6 mo ??? Hypercholesterolemia ??? Asymmetric blood pressures L>R (Check BP on left arm) ??? PAD (peripheral artery disease) ([facility]) 12/13 Study reveals the following: There [...] Right 1995 Cyst resection ??? HX CHOLECYSTECTOMY 1971 ??? HX LUMBAR LAMINECTOMY 04/2016 L5-S1 Family History Problem Relation Age of Onset ??? Diabetes Mother ??? [...] Daughter ??? Kidney Disease Daughter Social History Substance Use Topics ??? Smoking status: Current Every Day Smoker Packs/day: 1.00 Years: 60.00 Types: Cigarettes ??? Smokeless tobacco: Never Used ??? Alcohol use Yes Comment: Occasional Current Outpatient Prescriptions: diclofenac sodium 1 % Top gel Apply 4 g to skin four times a day as needed. rosuvastatin (CRESTOR) 20 mg oral tablet Take 1 tablet (20 mg) by mouth once daily. triamterene-hydrochlorothiazide (MAXZIDE) 37.5-25 mg oral tablet TAKE ONE TABLET BY MOUTH ONCE DAILY Allergies Allergen Reactions ??? Atorvastatin ??? Percocet [Oxycodone-Acetaminophen] Itching Severe itching PHYSICAL EXAM: BP 130/66 (BP Cuff Site: Left arm, BP Cuff Position: Sitting, BP Cuff Size: Regular adult) Pulse 77 Temp 98.1 ??F (36.7 ??C) (Oral) Wt 70.3 kg (154 lb 14.4 oz) SpO2 96% BMI 27.44 kg/m?? General: The patient is pleasant and interactive. Speech is fluent. HEENT: The conjunctiva are moist and clear. Mouth and oropharynx are moist and clear. Ears are clear. Cardiovascular: The heart tones are regular. There are no murmurs. There are no carotid bruits. Respiratory: The lung sounds are clear. There is normal respiratory effort. Dermatologic: Visualized skin is clear. There is no lower extremity edema. IMPRESSION: 1. Hypercholesterolemia 2. Pulmonary nodule 3. Tobacco use PLAN: I recommended continuing aspirin although she may cut back on use. There are no concerning dermatologic findings at this time. CT scan of the chest will be repeated. Lipid profile was obtained. She hasfound diclofenac gel helpful and this is refilled per her request. She is encouraged to stop smoking. I would be fine with refilling medications when needed. Above was discussed at length with her and questions were answered. She was comfortable and in agreement with the plan. She will contact the clinic with updates in status as needed. Yuli Watkins MD - 11/27/2017 1:[address] scan discussed with the patient. Recommend repeat CT in 3 months as per radiology recommendation.Order has been placed. Yuli Watkins MD - 11/27/2017 1:[address] scan reviewed with radiology and discussed with patient. There was some discrepancy in the reporting as the study from last November noted new findings and the most recent study was noted to demonstrateno significant change compared with 2013. I personally reviewed the CT scan images with radiology. As groundglass opacities persist with little change, repeat imaging is recommended to be performed in 6 months. documented in this encounter Miscellaneous Notes Addendum Note - Yuli Watkins MD - 11/27/2017 1:30 PM CDT Addended by: YULI WATKINS on: 12/02/2017 12:46 PM Modules accepted: Orders documented in this encounter Plan of Treatment Not on filedocumented as of this encounter Procedures Procedure Name Priority Date/Time Associated Diagnosis Comme nts LIPID PROFILE Routine 11/27/2017 1:43 PM Hypercholesterolemia Results for this CASCADE CDT procedure are i n the results [...] the right middle lobe. REPORT SIGNED BY JOYCE STEEL M.D. Narrative 12/02/2017 8:14 AM CDT [...] unremarkable. No acute osseous abnormality. Procedure Note Joyce Steel MD - 8 EXAM: CT CHEST [...] the right middle lobe. REPORT SIGNED BY JOYCE STEEL M.D. Yuli Watkins MD CT ORDERABLE (ABNORMAL) LIPID PROFILE CASCADE (11/27/2017 1:43 PM CDT) [facility] Method Time Signature SPECIMEN TYPE Fasting 11/27/[address] [facility] 10:10 PM CDT [facility] CHOLESTEROL 141 <200 11/27/[address] [facility] mg/dL 10:10 PM CDT [facility] TRIGLYCERIDES 205 (H) <150 11/27/[address] [facility] PROFILE mg/dL 10:10 PM CDT [facility] LDL CHOL, CALC 31 <100 11/27/[address] [facility] mg/dL 10:10 PM CDT HE[facility] HDL CHOLESTEROL 69 >40 mg/dL 11/27/2017 [facility] 10:10 PM CDT [facility] CHOL/HDL RATIO 2.0 0.0 - 4.9 11/27/[address] [facility] 10:10 PM CDT HEALTH LAB[facility]ORY Specimen Anatomical Collection Method / Collection Time Recei lisa Time (Source) Location / Volume Laterality Blood Venipuncture / 11/27/2017 1:43 11/27/2017 1:43 Unknown PM CDT PM CDT Narrative [facility] - 11/27 10:10 PM CDT LDL CHOLESTEROL REFERENCE RANGES: (FOR PATIENTS W/O HEART DISEASE) <100 mg/dL = Optimal 100-129 mg/dL = Near/Above Optimal 130-159 mg/dL = Borderline High 160-189 mg/dL = High >/= 190 mg/dL = Very High Yuli Watkins MD CHEMISTRY ORDERABLE Performing Organization Address City/State/ZIP Code Phon e Number [facility] [address] [place] [address] LABORATORY documented in this encounter Visit Diagnoses Diagnosis Hypercholesterolemia - Primary Pure hypercholesterolemia Pulmonary nodule Solitary pulmonary nodule Tobacco use Tobacco use disorder Pulmonary nodules Other nonspecific abnormal finding of june ng field Pulmonary nodule Solitary pulmonary nodule Tobacco use Tobacco use disorder documented in this encounter Care Teams [employer] Guidance Counselor Relationship Specialty Start Date End Date Yuli Watkins MD PCP - General Internal Medicine 02/23/[address] [place] [address] Dr Villagomez [facility] Internal Medicine [place] [address] [address] [facility] PCP - Primary Care Clinic Clinic-[address] VILLAGOMEZ [facility] [place] [address] Francesco Bonner MD 08/11/13 documented as of this encounter
--- OUTSIDE RECORDS SUMMARY | 2022-02-13 11:39 | XMS_ITS | Encounter Summary ---
:1940 Author Organization [facility] Address [address] [place] [address] Care Team Providers Name Role Phone Francesco Bonner MD Unavailable Unavailable Anup Evans MD Primary Care Provider [facility] [phone] Reason for Referral (Routine) - Open Specialty Diagnoses / Procedures Referred By Contact Refer red To Contact Diagnoses Screening for osteoporosis Postmenopausal Anup Evans MD Procedures XR BONE DENSITY-SPINE & HIP [address] [facility] [address] Pérez [facility] Internal [place], [place] [address] Referral ID Status Reason Start Date Expiration Date Visits Requ ested Visits Authorized [id number] Open 05/23/2021 1 1 STRIAL SAFETY AND HEALTH SPECIALIST Reason for Visit (Routine) - Open Specialty Diagnoses / Procedures Referred By Contact Refer red To Contact Diagnoses Screening for osteoporosis Postmenopausal Anup Evans MD Procedures XR BONE DENSITY-SPINE & HIP [address] [facility] [address] [facility] Medicine [place], [place] [address] Referral ID Status Reason Start Date Expiration Date Visits Requ ested Visits Authorized [id number] Open 05/23/2021 1 1 Encounter Details Date Type Department Care Team Description 07/05/2021 Hospital Encounter [facility] y [facility] [facility] [place], [place] [address] Social History Tobacco Use Types [...] with No / Unsure 07/05/2021 9:17 AM INDUSTRIAL SAFETY AND HEALTH SPECIALIST someone who was confirmed or suspected to have Coronavirus / COVID-19? documented as of this encounter Medications at Time of Discharge Medication Sig Dispensed Refills Start Date End Date potassium chloride Take 1 tablet (20 90 [...] Name Priority Date/Time Associated Diagnosis Comme nts XR BONE Routine 07/05/2021 10:34 AM Screening for Results for this DENSITY-SPINE & HIP INDUSTRIAL SAFETY AND HEALTH SPECIALIST osteoporosis procedure are in Postmenopausal the results section. documented in this encounter Results XR (MDIP) BONE DENSITY-SPINE & HIP (07/05/2021 10:34 AM INDUSTRIAL SAFETY AND HEALTH SPECIALIST) Anatomical Region Laterality Modality Extremity Computed Radiography Specimen (Source) Anatomical Collection Method Collection Time Re ceived Time Location / / Volume Laterality 07/05/2021 10:35 AM INDUSTRIAL SAFETY AND HEALTH SPECIALIST Impressions 07/05/2021 10:37 AM INDUSTRIAL SAFETY AND HEALTH SPECIALIST IMPRESSION: Osteopenia. WHO Classification of bone density for p ost-menopausal women, and men over 50 years of age, is as follows: Normal bone density: T score greater callie n -1.0. Osteopenia (Low bone density): T score b etween -1.0 and -2.5. Osteoporosis: T score less than -2.5. ?? REPORT SIGNED BY DR. Gordy Payne Narrative 07/05/2021 10:37 AM INDUSTRIAL SAFETY AND HEALTH SPECIALIST EXAM: DEXA BONE DENSITY STUDY DATE: 07/05/2021 10:14 AM COMPARISON: None submitted. CLINICAL DATA: Osteoporosis screening. P ost-menopausal. TECHNIQUE: A bone density evaluation usi ng DEXA (dual energy x-ray absorptiometry) was performed for your patient at the [facility] in [place] using a Hologic (Discovery) unit. FINDINGS: Lumbar Spine (L1 and L2): Average BMD (g/cm2): 0.874 T-score: -1.0 Z-score: 1.6 Left Femoral Neck: Average BMD (g/cm2): 0.628 T-score: -2.0 Z-score: 0.4 Left Hip Total: Average BMD (g/cm2): 0.800 T-score: -1.2 Z-score: 1.0 Vertebral assessment: frontal and latera l scanograms demonstrate no compression deformities in the thoracic or lumbar spine. Degenerative changes noted at L3 and L4. FRAX (10-year Fracture Risk calculated f or an untreated patient): the risks of a major osteoporotic fracture and a hip fracture are, respectively, 16% and 7%. Procedure Note Gordy Payne MD - 07/05/2021Forma tting of this note might be different from the original. EXAM: DEXA BONE DENSITY STUDY DATE: 07/05/2021 10:14 AM COMPARISON: None submitted. CLINICAL DATA: Osteoporosis screening. P ost-menopausal. TECHNIQUE: A bone density evaluation usi ng DEXA (dual energy x-ray absorptiometry) was performed for your patient at the [facility] in [place] using a Hologic (Discovery) unit. FINDINGS: Lumbar Spine (L1 and L2): Average BMD (g/cm2): 0.874 T-score: -1.0 Z-score: 1.6 Left Femoral Neck: Average BMD (g/cm2): 0.628 T-score: -2.0 Z-score: 0.4 Left Hip Total: Average BMD (g/cm2): 0.800 T-score: -1.2 Z-score: 1.0 Vertebral assessment: frontal and latera l scanograms demonstrate no compression deformities in the thoracic or lumbar spine. Degenerative changes noted at L3 and L4. FRAX (10-year Fracture Risk calculated f or an untreated patient): the risks of a major osteoporotic fracture and a hip fracture are, respectively, 16% and 7%. IMPRESSION IMPRESSION: Osteopenia. WHO Classification of bone density for p ost-menopausal women, and men over 50 years of age, is as follows: Normal bone density: T score greater callie n -1.0. Osteopenia (Low bone density): T score b etween -1.0 and -2.5. Osteoporosis: T score less than -2.5. REPORT SIGNED BY DR. Gordy Payne Anup Evans MD XRAY ORDERABLE documented in this encounter Visit Diagnoses Diagnosis Screening for osteoporosis Special screening for osteoporosis Postmenopausal Asymptomatic postmenopausal status (age- related) (natural) documented in this encounter Care Teams Nursing Associate Relationship Specialty Start Date End Date Anup Evans MD PCP - General Internal Medicine 02/23/[address] [place] [address] Dr Pérez [facility] [place] [address] Chaun[facility] Bill [facility] PCP - Primary Care Clinic [address] [place] [address] DR PÉREZ [facility] [place] [address] Francesco Bonner MD 08/11/13 documented as of this encounter
--- OUTSIDE RECORDS SUMMARY | 2022-02-13 11:39 | XMS_ITS | Encounter Summary ---
:[address] [facility] Address [address] [place] [address] Care Team Providers Name Role Phone Francesco Bonner MD Unavailable Unavailable Anup Evans MD Primary Care Provider [facility] [phone] Reason for Referral (Routine) - Open Specialty Diagnoses / Procedures Referred By Contact Refer red To Contact Diagnoses Tobacco use Pulmonary nodules Anup Evans MD Procedures CT CHEST LOW DOSE W/O CON [address] [facility] [address] P[facility]rez [facility] Internal Medicine [place], [place] [address] Referral ID Status Reason Start Date Expiration Date Visits Requ ested Visits Authorized [id number] Open 05/23/2021 1 1 COUNT ASSOCIATE Reason for Visit (Routine) - Open Specialty Diagnoses / Procedures Referred By Contact Refer red To Contact Diagnoses Tobacco use Pulmonary nodules Anup Evans MD Procedures CT CHEST LOW DOSE W/O CON [address] [facility] [address] [facility]erman Internal Medicine [place], [place] [address] Referral ID Status Reason Start Date Expiration Date Visits Requ ested Visits Authorized [id number] Open 05/23/2021 1 1 Encounter Details Date Type Department Care Team Description 07/05/2021 Hospital Encounter [facility] [address] [place], [place] [address] Social History Tobacco Use Types [...] with No / Unsure 07/05/2021 9:17 AM DROP COUNT ASSOCIATE someone who was confirmed or suspected to [...] day. solution documented as of this encounter Miscellaneous Notes Result Encounter Note - Anup Evans MD - 07/05/2021 10:00 AM CST Patient care: Contact patient regarding recent CT scan of the chest. Inform her that there is a new 6 x 8 mm groundglass opacity identified in the left lung. It is recommended to follow-up with a CT scan of the chest in 3-6 months. COUNT ASSOCIATE documented in this encounter Plan of Treatment Not on filedocumented as of this encounter Procedures Procedure Name Priority Date/Time Associated Diagnosis Comme nts CT CHEST LOW DOSE Routine 07/05/2021 10:03 AM Tobacco us e Results for this W/O CON DROP COUNT ASSOCIATE Pulmonary nodules procedure are in the results section. documented in this encounter Results CT (MDIP) CHEST LUNG NODULE - FOLLOW-UP (07/05/2021 10:03 AM DROP COUNT ASSOCIATE) Anatomical Region Laterality Modality Chest Computed Tomography Specimen (Source) Anatomical Collection Method Collection Time Re ceived Time Location / / Volume Laterality 07/05/2021 10:22 AM DROP COUNT ASSOCIATE Impressions 07/05/2021 10:45 AM DROP COUNT ASSOCIATE IMPRESSION: ?? 1. ??New 6 x 8 mm groundglass opacity in the left lower lobe. This may be infectious or inflammatory. Recommend follow-up CT chest in 3-6 months. 2. ??Additional new ill-defined groundgl ass opacities in the right lung apex. Favor these are infectious or inflammatory. Recommend attention on follow-up. 3. ??Numerous solid and groundglass nodu lar opacities are unchanged going back to 03/10/2018. REPORT SIGNED BY DR. Brendan Kim 07/05/2021 10:45 AM DROP COUNT ASSOCIATE EXAM: CT CHEST LOW DOSE W/O CON DATE: ??07/05/2021 9:46 AM CLINICAL DATA: ??Z72.0 Tobacco use R91.8 Other nonspecific abnormal finding of lung field ADDITIONAL CLINICAL DATA: COMPARISON: ??CT chest 06/18/2018, 018 TECHNIQUE: ??A low-dose unenhanced CT sc an of the thorax was performed. ??Specifically, thin-section contiguous transaxial images were obtained through the thorax. ??Coronal reformations were also obtai emery through the thorax. ??No intravenous contrast was given. Reduced mA and kV were used to lower the radiation dose absorbed by the patient. FINDINGS: Mediastinum/Axilla/Latrice: ??The heart siz e is within normal limits. Mild scattered coronary artery calcifications. No pericardial effusion. No enlarged thoracic lymph nodes. Lungs: ??The central tracheobronchial tr ee is patent. ??Innumerable solid and patchy groundglass nodular opacities, with index nodules described below from series 4: Image 85: Groundglass 6 x 8 mm opacity i n the left lower lobe, which is new. Image 33: Solid 3 mm pulmonary nodule in the right upper lobe, unchanged. Image 36: Solid 3 mm pulmonary nodule in the right upper lobe, unchanged. Image 115: Solid 2 mm pulmonary nodule i n the right lower lobe, unchanged. Image 115: Solid tumor pulmonary nodule in the left lower lobe, unchanged. Image 38: Groundglass 6 x 12 mm opacity in the right upper lobe, unchanged. Image 37: Groundglass 5 mm opacity in th e right upper lobe, unchanged Image 48: Groundglass opacity measuring 16 x 10 mm in the right upper lobe, unchanged. New ill-defined patchy groundglass opaci ties in the right lung apex (for example series 4 image 33). Additionally some of the previously seen groundglass opacities have resolved. Upper Abdomen: ??Visualized upper abdome n is limited. Small accessory splenule. Normal adrenal glands. ?? Bones: ??Degenerative changes of the tho racic spine. Other: ??None Procedure Note Brendan David MD - 07/05/2021Formattin g of this note might be different from the original. EXAM: CT CHEST LOW DOSE W/O CON DATE: 07/05/2021 9:46 AM CLINICAL DATA: Z72.0 Tobacco use R91.8 O ther nonspecific abnormal finding of lung field ADDITIONAL CLINICAL DATA: COMPARISON: CT chest 06/18/2018, 8 TECHNIQUE: A low-dose unenhanced CT scan of the thorax was performed. Specifically, thin-section contiguous transaxial images were obtained through the thorax. Coronal reformations were also obtained through the thorax. No intravenous contrast was give n. Reduced mA and kV were used to lower the radiation dose absorbed by the patient. FINDINGS: Mediastinum/Axilla/Latrice: The heart size is within normal limits. Mild scattered coronary artery calcifications. No pericardial effusion. No enlarged thoracic lymph nodes. Lungs: The central tracheobronchial tree is patent. Innumerable solid and patchy groundglass nodular opacities, with index nodules described below from series 4: Image 85: Groundglass 6 x 8 mm opacity i n the left lower lobe, which is new. Image 33: Solid 3 mm pulmonary nodule in the right upper lobe, unchanged. Image 36: Solid 3 mm pulmonary nodule in the right upper lobe, unchanged. Image 115: Solid 2 mm pulmonary nodule i n the right lower lobe, unchanged. Image 115: Solid tumor pulmonary nodule in the left lower lobe, unchanged. Image 38: Groundglass 6 x 12 mm opacity in the right upper lobe, unchanged. Image 37: Groundglass 5 mm opacity in th e right upper lobe, unchanged Image 48: Groundglass opacity measuring 16 x 10 mm in the right upper lobe, unchanged. New ill-defined patchy groundglass opaci ties in the right lung apex (for example series 4 image 33). Additionally some of the previously seen groundglass opacities have resolved. Upper Abdomen: Visualized upper abdomen is limited. Small accessory splenule. Normal adrenal glands. Bones: Degenerative changes of the thora cic spine. Other: None IMPRESSION IMPRESSION: 1. New 6 x 8 mm groundglass opacity in t he left lower lobe. This may be infectious or inflammatory. Recommend follow-up CT chest in 3-6 months. 2. Additional new ill-defined groundglas s opacities in the right lung apex. Favor these are infectious or inflammatory. Recommend attention on follow-up. 3. Numerous solid and groundglass nodula r opacities are unchanged going back to 03/10/2018. REPORT SIGNED BY DR. Brendan David Anup vEans MD CT ORDERABLE documented in this encounter Visit Diagnoses Diagnosis Tobacco use Tobacco use disorder Pulmonary nodules Other nonspecific abnormal finding of june ng field documented in this encounter Care Teams Military Pay Technician Relationship Specialty Start Date End Date Anup Evans MD PCP - General Internal Medicine 02/23/[address] [place] [address] Dr Pérez [facility] [place] [address] [facility] PCP - Primary Care Clinic [address] [place] [address] [facility] [place] [address] Francesco Bonner MD 08/11/13 documented as of this encounter
--- OUTSIDE RECORDS SUMMARY | 2022-02-13 11:39 | XMS_ITS | Encounter Summary ---
:1940 Author Organization [facility] Address [address] [place] [address] Care Team Providers Name Role Phone Francesco Bonner MD Unavailable Unavailable Anup Evans MD Primary Care Provider [facility] Unavailable [phone] Reason for Referral (Routine) - Closed Specialty Diagnoses / Procedures Referred By Contact Refer red To Contact Diagnoses Essential hypertension Hypercholesterolemia Anup Evans MD Procedures THYROID STIMULATING HORMONE [address] [facility] [address] P[facility] Internal Medicine [place] [id number] [phone] Referral ID Status Reason Start Date Expiration Date Visits Requ ested Visits Authorized [id number] Closed 05/11/2020 05/11/2021 1 1 NESS SUPPORT PROFESSIONAL (Routine) - Closed Specialty Diagnoses / Procedures Referred By Contact Refer red To Contact Diagnoses Essential hypertension Hypercholesterolemia Anup Evans MD Procedures LIPID PROFILE CASCADE [address] [facility] [address] [facility] Internal Medicine [place] [id number] [phone] Referral ID Status Reason Start Date Expiration Date Visits Requ ested Visits Authorized [id number] Closed 05/11/2020 05/11/2021 1 1 NESS SUPPORT PROFESSIONAL (Routine) - Closed Specialty Diagnoses / Procedures Referred By Contact Refer red To Contact Diagnoses Essential hypertension Hypercholesterolemia Anup Evans MD Procedures BASIC METAB PROFILE [address] [facility] Internal Medicine [place], [place] [address] Referral ID Status Reason Start Date Expiration Date Visits Requ ested Visits Authorized [id number] Closed 05/11/2020 05/11/2021 1 1 NESS SUPPORT PROFESSIONAL (Routine) - Closed Specialty Diagnoses / Procedures Referred By Contact Refer red To Contact Diagnoses Essential hypertension Hypercholesterolemia Anup Evans MD Procedures CBC (HGB,HCT,WBC,RBC,PLATELET) [address] [place] [address] Dr Pérez [facility] Internal Medicine [place], [place] [address] Referral ID Status Reason Start Date Expiration Date Visits Requ ested Visits Authorized [id number] Closed 05/11/2020 05/11/2021 1 1 NESS SUPPORT PROFESSIONAL Reason for Visit Reason Comments Annual Medicare wellness visit - subsequent Encounter Details Date Type Department Care Team Description 05/11/2020 Office Visit [facility] Anup Evans MD Encounter for Medicare annual wellness e xam (Primary Dx); Internal Medicine - [address] [place] [address] Dr Armstrong ntial hypertension; [place] [address] Hypercholesterolemia; [address] [place] [address] Internal [facility] icine DDD (degenerative disc disease), lumbar [facility] [address] [place], [place] [phone] (Wo rk) Social History Tobacco Use Types [...] with No / Unsure 05/11/2020 12:07 PM BUSINESS SUPPORT PROFESSIONAL someone who was confirmed or suspected to have Coronavirus / COVID-19? documented as of this encounter Last Filed Vital Signs Vital Sign Reading Time Taken Comments Blood Pressure 136/72 05/11/2020 1:11 PM BUSINESS SUPPORT PROFESSIONAL Pulse 74 05/11/2020 12:38 PM BUSINESS SUPPORT PROFESSIONAL Temperature 36.4 ??C (97.6 ??F) 05/11/2020 12:38 PM BUSINESS SUPPORT PROFESSIONAL Respiratory Rate - - Oxygen Saturation 97% 05/11/2020 12:38 PM BUSINESS SUPPORT PROFESSIONAL Inhaled Oxygen Concentration - - Weight 73.3 kg (161 lb 8 oz) 05/11/2020 12:38 PM BUSINESS SUPPORT PROFESSIONAL Height 158.1 cm (5' 2.25) 05/11/2020 12:38 PM BUSINESS SUPPORT PROFESSIONAL Body Mass Index 29.3 05/11/2020 12:38 PM BUSINESS SUPPORT PROFESSIONAL documented in this encounter Patient Instructions Patient InstructionsAnup Evans MD - 05/11/2020 12:15 PM CST In order to achieve and maintain the [...] balance or dizziness, you should see an phlebotomy program coordinator orvisit a hearing and balance center. ??? Your vision should be checked every year. The Senior Link Age Line is brought to you by the [place] [employer]. A free [facility] information and assistance service- the free call that does it all! Call weekdays from 8:00AM to 4:30PM. Below are some of the services that can be provided to you: -Health Insurance Counseling (such as how to pick a Medicare Plan) -Prescription Drug Expense Assistance -Forms Assistance (such as applying for Medical Assistance and Medicare) -Home Care -Legal Assistance -Long-term Care Insurance -Long-term Care Planning Options -Caregiver Planning and Support -Grandparents raising Grandchildren -Transportation Assistance -Housekeeping and Chore Services. ??? NESS SUPPORT PROFESSIONAL documented in this encounter Progress Notes Anup Evans MD - 05/11/2020 12:15 PM CST MEDICARE ANNUAL WELLNESS VISIT Jennifer Cole is a 80 y.o. female who presents today for her annual Medicare Wellness Visit. Patient Care Team: Anup Evans MD as PCP - General (Internal Medicine) [facility] as PCP - Primary Care Clinic Francesco Bonner MD Past Medical history, Surgical History, Family History, Social History and Allergies were reviewed in [facility] and updated today as needed. Current Outpatient Medications: Medication Sig ??? rosuvastatin (CRESTOR) 20 mg oral tablet Take 1 tablet (20 mg) by mouth once daily. ??? triamterene-hydrochlorothiazide (MAXZIDE) 37.5-25 mg oral tablet TAKE 1 TABLET BY MOUTH EVERY DAY Social History Tobacco Use ??? Smoking status: Current Every Day Smoker Packs/day: 1.00 Years: 60.00 Pack years: 60.00 Types: Cigarettes ??? Smokeless tobacco: Never Used Substance Use Topics ??? Alcohol use: Yes Comment: Occasional ??? Drug use: No Health Care Directive?: No Pt given information/[place] [employer] form Depression Screen: PHQ-2 Interest: Not at all Depression: Not at all PHQ2 Total: 0 Nutrition Diet Type: Regular Fall Assessment: Have you fallen in the last year?: No Do you feel unsteady when walking or standing? : No Are you worried about falling?: No Mental Status: Patient has concerns about her memory: No By direct observation, I do not have concerns about her cognitive function. Physical Activities/ADLs: Hygiene: Independent, Feeding: Independent, Dressing: Independent, Meal Prep: Independent, Grocery Shopping: Independent, Money Management: Independent, Medication Management: Independent, Driving Status: Independent, Yard Work/Snow Removal: Independent Objective Nursing notes and vitals have been reviewed Vitals: 05/11/20 1238 BP: (!) 140/68 Pulse: 74 Temp: 97.6 ??F (36.4 ??C) Weight: 73.3 kg (161 lb 8 oz) Height: 1.581 m (5' 2.25) Body mass index is 29.3 kg/m??. Vision: Have you had an eye exam in the past year: Yes Hearing Do you have difficulty with your hearing?: No Assessment/Plan: Jennifer Cole was seen today for her Medicare Annual Wellness Visit. I have reviewed all of the above information and it is correct. Information on health care directives from [place] provided. Additionally, she has been provided a handout on her personalized health advice, list of risk factors, and a screening schedule for recommended testing which we have discussed today (see Pt Instructions). Appropriate tests, referrals and the associated diagnoses have been ordered based on patient's history, risk factors and chronic disease. NESS SUPPORT PROFESSIONAL Anup Evans MD - 05/11/2020 12:15 PM CST Images from the original note were not included. ?? Jennifer Cole is a pleasant 80 y.o. female seen with [facility] on 05/11/20. CHIEF COMPLAINT: Medicare wellness evaluation, osteoarthritis with request to update handicap parking certificate, hypertension, hypercholesterolemia HPI: She is in no chest pains or angina. No respiratory concerns. She has arthritis pain. She requested updated handicap parking certificate. She has no medication side effects or difficulties. Declines flu vaccine. She would be okay with updating blood work today. Note some chronic pain related to her back and joint pain. She has been to a pain clinic previously and is not interested in returning. ACTIVE PROBLEM LIST: Diagnosis ??? DDD (degenerative [...] groundglass opacities were not definitely seen in 2014. Based on published guidelines yearly follow-up to confirm stability for 4 years is recommended. ??? Hypercholesterolemia ??? Asymmetric blood pressures L>R (Check BP on left arm) ??? PAD (peripheral artery disease) ([facility]) 12/13 Study reveals the following: There [...] use: Yes Comment: Occasional Current Outpatient Medications: Medication Sig ??? rosuvastatin (CRESTOR) 20 mg oral tablet Take 1 tablet (20 mg) by mouth once daily. ??? triamterene-hydrochlorothiazide (MAXZIDE) 37.5-25 mg oral tablet TAKE 1 TABLET BY MOUTH EVERY DAY Allergies Allergen Reactions ??? Atorvastatin ??? Percocet [Oxycodone-Acetaminophen] Itching Severe itching PHYSICAL EXAM: BP 136/72 Pulse 74 Temp 97.6 ??F (36.4 ??C) (Temporal) Ht 1.581 m (5' 2.25) Wt 73.3 kg (161lb 8 oz) SpO2 97% BMI 29.30 kg/m?? General: The patient is pleasant and interactive. Speech is fluent. HEENT: The conjunctiva are moist and clear. Ears are clear. Neck: No lymphadenopathy. Cardiovascular: The heart tones are regular. There are no significant cardiac murmurs. Lungs: Clear to auscultation bilaterally. There is normal respiratory effort. Abdomen: There is no abdominal tenderness, masses, or organomegaly. Musculoskeletal: Joints are unremarkable. Dermatologic: Visualized skin is clear. There is no lower extremity edema. Neurologic: There are no focal neurological deficits. IMPRESSION: 1. Encounter for Medicare annual wellness exam 2. Essential hypertension 3. Hypercholesterolemia 4. DDD (degenerative disc disease), lumbar PLAN: We reviewed her diagnoses and medications. Medications are refilled. Laboratory studies are obtained. Handicap and certificate was provided. NESS SUPPORT PROFESSIONAL documented in this encounter Miscellaneous Notes Result Encounter Note - Anup Evans MD - 05/11/2020 12:15 PM CST Patient care: Contact the patient regarding blood work. Potassium returned low at 3.2. This is most likely related to her thiazide diuretic. Recommend add prescription for potassium chloride 20 mEq daily #90 refill x3. Suggest recheck potassium level in 2-3 weeks. NESS SUPPORT PROFESSIONAL documented in this encounter Plan of Treatment Not on filedocumented as of this encounter Procedures Procedure Name Priority Date/Time Associated Comments Diagnosis LIPID PROFILE CASCADE Routine 05/11/2020 1:07 PM Essential Results for this BUSINESS SUPPORT PROFESSIONAL hypertension procedure are in Hypercholesterolemi the resu lts a section. THYROID STIMULATING Routine 05/11/2020 1:07 PM Essential Re sults for this HORMONE BUSINESS SUPPORT PROFESSIONAL hypertension procedure are in Hypercholesterolemi the resu lts a section. BASIC METAB PROFILE Routine 05/11/2020 1:07 PM Essential Re sults for this BUSINESS SUPPORT PROFESSIONAL hypertension procedure are in Hypercholesterolemi the resu lts a section. CBC Routine 05/11/2020 1:07 PM Essential Results f or this (HGB,HCT,WBC,RBC,PLAT BUSINESS SUPPORT PROFESSIONAL hypertensi on procedure are in ELET) Hypercholesterolemi the resu lts a section. documented in this encounter Results THYROID STIMULATING HORMONE (05/11/2020 1:07 PM BUSINESS SUPPORT PROFESSIONAL) P athologist Signature TSH 1.460 0.358 - 05/11/2020 [facility] 3.740 11:21 PM [facility] UIU/mL LABORATORY Specimen Anatomical Collection Method / Collection Time Recei lisa Time (Source) Location / Volume Laterality Blood Venipuncture / 05/11/2020 1:07 05/11/2020 1:07 Unknown PM BUSINESS SUPPORT PROFESSIONAL PM BUSINESS SUPPORT PROFESSIONAL Anup Evans MD CHEMISTRY ORDERABLE Performing Organization Address City/State/[facility] Phon e Number [facility] [address] [place] [address] [phone] LABORATORY LIPID PROFILE CASCADE (05/11/2020 1:07 PM BUSINESS SUPPORT PROFESSIONAL) Patholo gist Method Time Signature SPECIMEN TYPE Fasting 05/11/2020 [facility] 11:16 PM [facility] CHOLESTEROL 195 <200 05/11/2020 [facility] mg/dL 11:16 PM [facility] TRIGLYCERIDES 106 <150 05/11/2020 [facility] PROFILE mg/dL 11:16 PM [facility] LDL CHOL, CALC 90 <100 05/11/2020 [facility] mg/dL 11:16 PM [facility] HDL CHOLESTEROL 84 >40 mg/dL 05/11/[facility] CHOL/HDL RATIO 2.3 0.0 - 4.9 05/11/2020 [facility] 11:16 PM [facility] Specimen Anatomical Collection Method / Collection Time Recei lisa Time (Source) Location / Volume Laterality Blood Venipuncture / 05/11/2020 1:07 05/11/2020 1:07 Unknown PM BUSINESS SUPPORT PROFESSIONAL PM BUSINESS SUPPORT PROFESSIONAL Narrative [facility] LABORATORY - 05/11 11:16 PM BUSINESS SUPPORT PROFESSIONAL LDL CHOLESTEROL REFERENCE RANGES: (FOR PATIENTS W/O HEART DISEASE) <100 mg/dL = Optimal 100-129 mg/dL = Near/Above Optimal 130-159 mg/dL = Borderline High 160-189 mg/dL = High >/= 190 mg/dL = Very High Anup Evans MD CHEMISTRY ORDERABLE Performing Organization Address City/State/ZIP Code Phon e Number [facility] [address] [place] [address] LABORATORY (ABNORMAL) BASIC METAB PROFILE (05/11/2020 1:07 PM BUSINESS SUPPORT PROFESSIONAL) Analysis Performed At Patho logist Time Signature SODIUM 137 136 - 145 05/11/2020 [facility] mmol/L 11:20 PM [facility] POTASSIUM 3.2 (L) 3.5 - 5.1 05/11/2020 [facility] mmol/L 11:20 PM [facility] CHLORIDE 103 98 - 112 05/11/2020 [facility] mmol/L 11:20 PM [facility] CARBON DIOXIDE 29 21 - 32 05/11/2020 [facility] mmol/L 11:20 PM [facility] BUN (UREA 11 7 - 24 05/11/2020 [facility] NITRO) mg/dL 11:20 PM [facility] CREATININE 0.98 0.55 - 05/11/2020 [facility] 1.02 mg/dL 11:20 PM [facility] EST GFR 55 (L) >60 mL/min 05/11/2020 [facility] (CKD-EPI) 11:20 PM [facility] EST GFR IF >60 >60 mL/min 05/11/2020 [facility] AM 11:20 PM [facility] GLUCOSE 83 74 - 106 05/11/2020 [facility] mg/dL 11:20 PM [facility] CALCIUM, SERUM 9.5 8.5 - 10.1 05/11/2020 [facility] mg/dL 11:20 PM [facility] ANION GAP 5.0 0.0 - 15.0 05/11/2020 [facility] mmol/L 11:20 PM [facility] Specimen Anatomical Collection Method / Collection Time Recei lisa Time (Source) Location / Volume Laterality Blood Venipuncture / 05/11/2020 1:07 05/11/2020 1:07 Unknown PM BUSINESS SUPPORT PROFESSIONAL PM BUSINESS SUPPORT PROFESSIONAL Anup Evans MD CHEMISTRY ORDERABLE Performing Organization Address City/[facility] Phon e Number [facility] [address] [place] [place] [address] LABORATORY CBC (HGB,HCT,WBC,RBC,PLATELET) (05/11/2020 1:07 PM BUSINESS SUPPORT PROFESSIONAL) P athologist Signature WBC 6.0 4.3 - 10.8 05/11/2020 [facility] K/uL 10:59 PM [facility] LABORAT[facility] RBC 4.43 4.20 - 05/11/2020 [facility] 5.40 M/uL 10:59 PM [facility] LABORATORY HEMOGLOBIN 13.9 12.0 - 05/11/2020 [facility] 16.0 gm/dL 10:59 PM [facility] LAB[facility] HEMATOCRIT 42.8 36.0 - 05/11/2020 [facility] 48.0 % 10:59 PM [facility] [facility] HEALTH LABORATORY MCV 97 80 - 100 05/11/2020 [facility] fl 10:59 PM [employer] HEALTH LABORATORY MCH 31 27 - 33 pg 05/11/2020 [facility] 10:59 PM [employer] PROFESSION[employer] HEALTH LABORATORY MCHC 33 33 - 36 05/11/2020 [facility] gm/dL 10:59 PM [facility] LAB[facility] RDW 13.3 11.5 - 05/11/2020 [facility] 14.5 % 10:59 PM [facility] LABOR[facility] PLATELET COUNT 224 150 - 400 05/11/2020 [facility] K/UL 10:59 PM [facility] LAB[facility] MPV 11.3 6.5 - 12 05/11/2020 [facility] 10:59 PM [employer]ESSION[employer] HEALTH LABORATORY Specimen Anatomical Collection Method / Collection Time Recei lisa Time (Source) Location / Volume Laterality Blood Venipuncture / 05/11/2020 1:07 05/11/2020 1:07 Unknown PM BUSINESS SUPPORT PROFESSIONAL PM BUSINESS SUPPORT PROFESSIONAL Anup Evans MD HEMATOLOGY ORDERABLE Performing Organization Address City/State/ZIP Code Phon e Number [facility] [address] [place] [address] [phone] LABORATORY documented in this encounter Visit Diagnoses Diagnosis Encounter for Medicare annual wellness e xam - Primary Routine general medical examination at a health care facility Essential hypertension Unspecified essential hypertension Hypercholesterolemia Pure hypercholesterolemia DDD (degenerative disc disease), lumbar Degeneration of lumbar or lumbosacral in tervertebral disc documented in this encounter Care Teams Prism Measurer Relationship Specialty Start Date End Date Anup Evans MD PCP - General Internal Medicine 02/23/[address] [place] [address] Dr [address] [place] [address] Chauncey Bill PCP - Primary Care Clinic [address] [place] [address] P[address]REZ [facility] [place] [address] Francesco Bonner MD 08/11/13 documented as of this encounter
--- OUTSIDE RECORDS SUMMARY | 2022-02-13 11:39 | XMS_ITS | Encounter Summary ---
:1940 Author Organization [facility] Address [address] [place] [address] Care Team Providers Name Role Phone Francesco Bonner MD Unavailable Unavailable Anup Evans MD Primary Care Provider [facility] Unavailable [phone] Reason for Visit Reason Comments Shortness of breath Headache Encounter Details Date Type Department Care Team Description 04/10/2021 Emergency [facility] Solis Robbins MD Emergency Care [facility] [address] [facility] [address] [place], [place] [address] [address] [place] [address] [phone] (Wo rk) Social History Tobacco Use Types [...] with No / Unsure 04/10/2021 1:40 PM REHABILITATION SERVICES MANAGER someone who was confirmed or suspected to have Coronavirus / COVID-19? documented as of this encounter Last Filed Vital Signs Vital Sign Reading Time Taken Comments Blood Pressure 124/89 04/10/2021 1:40 PM REHABILITATION SERVICES MANAGER Pulse 85 04/10/2021 1:40 PM REHABILITATION SERVICES MANAGER Temperature 36.9 ??C (98.4 ??F) 04/10/2021 1:40 PM REHABILITATION SERVICES MANAGER Respiratory Rate 18 04/10/2021 1:40 PM REHABILITATION SERVICES MANAGER Oxygen Saturation 98% 04/10/2021 1:40 PM REHABILITATION SERVICES MANAGER Inhaled Oxygen Concentration - - Weight - - Height - - Body Mass Index - - documented in this encounter Discharge Instructions AttachmentsThe following attachments cannot be sent through Care Everywhere. Dizziness (AfterCare(R) Instructions(ER/ED)) (Botswanan)documented in this encounter ED Notes Evi Gamboa RN - 04/10/2021 5:48 PM CST S: Shoertness of breath. B: Sudden onset of dizziness, shortness of breath and shaking. Denies nausea. A: VSS, Alert, oriented, appropriate. A,mbulates without issue. R: Discharge to home. BILITATION SERVICES MANAGER Jagdeep Robbins MD - 04/10/2021 4:38 PM CST Images from the original note were not included. CHIEF COMPLAINT: Shortness of breath HPI: Initial history obtained at 4:38 PM 04/10/21. Obtained from the patient. Alex Cole is a 80 y.o. female with a history of hypertension who presents to the emergency department for evaluation of shortness of breath. The patient reports that she went to go and sit downat her computer at around 1100 this morning and felt really dizzy. She notes she has never felt thatway before and it lasted for about 30 seconds to one minute. She then noted chest tightness and shortness of breath. Additionally, she reported having trouble walking because she couldn't catch her breath. She does not remember much about this episode. After waiting in the emergency department Alex states that she feels fine now. She has not eaten today and reports feeling shaky. She denies any vomiting or abdominal pain. MEDICATIONS: The patient takes: Potassium Chloride (K-dur) 20 Meq Oral Extended Release Tablet Rosuvastatin (Crestor) 20 Mg Oral Tablet Triamterene-hydrochlorothiazide (Maxzide) 37.5-25 Mg Oral Tablet ALLERGIES: The patient has allergies of: Atorvastatin Percocet [Oxycodone-Acetaminophen] PAST MEDICAL HISTORY: The patient has a history of: Coronary artery calcificatoin Hypertension Lumbar disc herniation Hypercholesterolemia ASCVD Pulmonary nodules Degenerative disc disease PAST SURGICAL HISTORY: The patient has past surgeries of: L5-S1 hemilaminectomy and discectomy Right breast cyst resection Cholecystectomy FAMILY HISTORY: The patient has a family history of:\ Diabetes (Mother) Stroke (Mother) Heart disease (Father) SOCIAL HISTORY: The patient has a history of tobacco dependence. REVIEW OF SYSTEMS: Review of Systems Respiratory: Positive for chest tightness and shortness of breath. Gastrointestinal: Negative for abdominal pain and vomiting. Neurological: Positive for dizziness. All other systems reviewed and are negative. PHYSICAL EXAM: Physical Exam Temperature: 98.4 ??F (36.9 ??C) HR: 85 Respirations: 18 BP: 124/89 SpO2: 98 % Constitutional: Awake and alert. HEAD: atraumatic EENT: Ears: Normal appearing external ears Eyes: EOMI, clear sclera, symmetric pupils Nose: No nasal discharge Mouth: MMM NECK: normal ROM, no palpable adenopathy CARDIAC: Regular rate, regular rhythm, no murmur or rub. Warm extremities. No pedal edema. RESP: Non labored breathing. Clear to auscultation bilaterally. ABD: Soft. Non tender, non distended. No guarding. MUSCULOSKELETAL: No acute gross deformities. SKIN: No acute rash. Skin tone appears within normal limits NEURO: Alert, not confused, somnolent or obtunded. Responding to verbal stimuli. No obvious acute neurologic deficit. ED COURSE: EKG: (1428 Hours): Indication: shortness of breath Ventricular Rate: 69 QRS [place]: -19 Intervals: DE 195, QRSD 84, QTc 394 Interpretation: Sinus rhythm with sinus arrhythmia. Possible right ventricular conduction delay. Inferior myocardial infarction, probably old with posterior extension. Compared to ECG 08/31/2013. Myocardial infarct finding now present. Incomplete right bundle-branch block no longer present. Laboratory: Labs Reviewed BASIC METAB PROFILE - Abnormal; Notable for the following components: Result Value SODIUM 135 (*) CREATININE 1.05 (*) EST GFR (CKD-EPI) 50 (*) EST GFR IF AM 58 (*) All other components within normal limits URINALYSIS MICROSCOPY (LAB USE ONLY) - Abnormal; Notable for the following components: SQUAM EPITHELIAL Few (*) All other components within normal limits URINALYSIS MACROSCOPIC W/ MICROSCOPY, IF INDICATED (DOES NOT INC CULTURE) - Normal HIGH-SENSITIVITY TROPONIN I (TNIH) - Normal HIGH-SENSITIVITY TROPONIN I (TNIH) - Normal CBC/DIFF EXTRA TUBE-SST (LAB USE ONLY) EXTRA TUBE PST (LAB USE ONLY) EXTRA TUBE-EDTA (LAB USE ONLY) Imaging: XRAY CHEST PORTABLE (Results Pending) Notable Events: Reviewed: 4:33 PM: I reviewed the patient's vital signs, past medical history, previous medical charts and nursing notes. Assessments: 4:38 PM: I performed initial history and physical exam of the patient. 5:26 PM: I re-evaluated the patient. ED Vitals: Patient Vitals for the past 24 hrs: BP Temp Pulse Resp SpO2 04/10/21 1340 124/89 98.4 ??F (36.9 ??C) 85 18 98 % MDM: Alex Cole is a 80 y.o. female with past medical history of tobacco dependence, peripheral arterial disease, hypertension, hypercholesterolemia, coronary artery disease and others presents to the emergency department today for evaluation of a now resolved episode of dizziness and chest tightness. Patient arrives with normal vital signs. Her episode began late this morning and is now subsequentlyresolved. At the time of my assessment she has no symptoms. Her physical examination is normal and benign. She describes having a brief dizzy period of 30 to 60 seconds which resolved. She did have several episodes however of chest tightness after this. The tightness did not radiate to her shoulder, back, neck, or jaw. Patient was worked up as shown above. She has a EKG that is similar to previous. There is no evidence of acute ischemia. Initial and 2-hour delta high- sensitivity troponin is unchanged and very low. This effectively rules out myocardial injury of any kind including from acute ischemia. Her other blood tests are unremarkable. The patient is feeling well and like to discharged home. I think this is reasonable. Not certain of the underlying etiology of her dizziness but it was brief and short-lived. Additionally her chest tightness has resolved. She should follow-up with her primary medical provider. She should have a conversation about her risk factors, medical history, and the need at her primary medical provider's discretion of a outpatient stress test. At this time however from an emergency medicine standpoint the patient is safe to discharge. Her questions were answered, I shared my impressionand medical decision maker the patient and she was discharged in good condition. This patient required a high degree of complex medical decision making. Significant potential risks were assessed. DIAGNOSIS: ICD-10-CM 1. Chest tightness R07.89 2. Dizziness R42 DISPOSITION: Discharge ATTESTATION: Scribe Attestation: I, Tello Esposito, am serving as a scribe to document services personally performed by Jagdeep Robbins MD, based on my observations and the provider's statements to me. Provider Attestation: Portions of this medical record were completed by a scribe. UPON MY REVIEW AND AUTHENTICATION BY ELECTRONIC SIGNATURE, this confirms (a) I performed the applicable clinical services, and (b) the recordis accurate. Jagdeep Robbins MD 4:38 PM 04/10/21 [facility] BILITATION SERVICES MANAGER Anjelica Phan RN - 04/10/2021 1:40 PM CST Pateint woke up this am and sat down to her computer and had sudden on set of dizziness, and SOB, shaking, did not eat breakfast also, denies any nausea but 'has a funny feeling and shakes BILITATION SERVICES MANAGER documented in this encounter Plan of Treatment Not on filedocumented as of this encounter Procedures Procedure Name Priority Date/Time Associated Comments Diagnosis HIGH-SENSITIVITY STAT 04/10/2021 5:08 Results for this TROPONIN I (TNIH) PM REHABILITATION SERVICES MANAGER procedure are in the results section. URINALYSIS MICROSCOPY DIOMEDES 04/10/2021 4:40 Res ults for this (LAB USE ONLY) PM REHABILITATION SERVICES MANAGER procedure are in the results section. URINALYSIS MACROSCOPIC STAT 04/10/2021 4:40 Re sults for this W/ MICROSCOPY, IF PM REHABILITATION SERVICES MANAGER procedure are in INDICATED (DOES NOT INC the results CULTURE) section. EXTRA TUBE-EDTA STAT 04/10/2021 2:28 PM REHABILITATION SERVICES MANAGER EXTRA TUBE-SST (LAB USE STAT 04/10/2021 2:28 ONLY) PM REHABILITATION SERVICES MANAGER HIGH-SENSITIVITY STAT Add-on 04/10/2021 2:28 Results for this TROPONIN I (TNIH) PM REHABILITATION SERVICES MANAGER procedure are in the results section. BASIC METAB PROFILE STAT 04/10/2021 2:28 Resul ts for this PM REHABILITATION SERVICES MANAGER procedure are i n the results section. CBC/DIFF STAT 04/10/2021 2:28 Results for this PM REHABILITATION SERVICES MANAGER procedure are i n the results section. EXTRA TUBE PST STAT 04/10/2021 2:28 PM REHABILITATION SERVICES MANAGER ELECTROCARDIOGRAM STAT 04/10/2021 2:24 Results for this PM REHABILITATION SERVICES MANAGER procedure are i n the results section. documented in this encounter Results High-Sensitivity Troponin I (TNIH) (04/10/2021 5:08 PM REHABILITATION SERVICES MANAGER)Only the most recent of2 resultswithin the time period is included. Analysis Performed At Patho logist Time Signature HIGH-SENSITIVI 7 <=51 ng/L DIMENSION EXL 04/10/20[facility] TROPONIN I ANALYZER 5:39 PM REHABILITATION SERVICES MANAGER LABORATORY Specimen Anatomical Collection Method Collection Time Receive d Time (Source) Location / / Volume Laterality Blood 04/10/2021 5:08 PM 5:13 REHABILITATION SERVICES MANAGER PM REHABILITATION SERVICES MANAGER Jagdeep Robbins MD CHEMISTRY ORDERABLE Performing Organization Address City/State/ZIP Code Phon e Number [facility] [address] [place] [address] (ABNORMAL) Urinalysis Microscopy (Lab Use Only) (04/10/2021 4:40 PM REHABILITATION SERVICES MANAGER) Patholo gist Method Time Signature WBC-UA MICRO None Seen None 04/10/2021 [facility] Seen, 5:29 PM REHABILITATION SERVICES MANAGER LABORATORY Occasiona l, Few, 1-4 /hpf SQUAM Few (A) None Seen 04/10/2021 [facility] EPITHELIAL /lpf 5:29 PM REHABILITATION SERVICES MANAGER LABORATORY RBC-UA Occasional None 04/10/2021 [facility] Seen, 5:29 PM REHABILITATION SERVICES MANAGER LABORATORY Occasiona l, 1-2 /hpf Specimen Anatomical Collection Method Collection Time Receive d Time (Source) Location / / Volume Laterality Urine specimen URINE SPECIMEN 04/10/2021 4:40 PM 04/10 5:14 (specimen) OBTAINED BY CLEAN REHABILITATION SERVICES MANAGER PM REHABILITATION SERVICES MANAGER CATCH PROCEDURE / Unknown Swapna Hubbard MD URINE ORDERABLE Performing Organization Address City/State/ZIP Code Phon e Number [facility] [address] [place], [place] [address] Urinalysis Macroscopic w/ Microscopy, if indicated (Does not inc culture) (04/10/2021 4:40 PM REHABILITATION SERVICES MANAGER) [facility] gist Method Time Signature GLUCOSE, UA Negative Negative 04/10/2021 [facility] mg/dL 5:18 PM REHABILITATION SERVICES MANAGER LABORATORY KETONE, UA Negative Negative 04/10/2021 [facility] mg/dL 5:18 PM REHABILITATION SERVICES MANAGER LABORATORY BILIRUBIN, UA Negative Negative 04/10/2021 [facility] 5:18 PM REHABILITATION SERVICES MANAGER LABORATORY PROTEIN, UA Negative Negative 04/10/2021 [facility] mg/dL 5:18 PM REHABILITATION SERVICES MANAGER LABORATORY OCCULT BLOOD, Trace Negative, 04/10/2021 [facility] UA Trace, 5:18 PM REHABILITATION SERVICES MANAGER LABORATORY TRACE-LYSED, TRACE-INTACT WBC ESTERASE, Negative Negative, 04/10/2021 [facility] UA Trace 5:18 PM REHABILITATION SERVICES MANAGER LABORATORY NITRITE, UA Negative Negative 04/10/2021 [facility] 5:18 PM REHABILITATION SERVICES MANAGER LABORATORY pH Urine 7.0 5.0, 5.5, 04/10/2021 [facility] 6.0, 6.5, 5:18 PM REHABILITATION SERVICES MANAGER LABORATORY 7.0, 7.5, 8.0 Specific 1.015 1.015, 04/10/2021 [facility] [place], UA 1.020, 1.025 5:18 PM REHABILITATION SERVICES MANAGER LABORATORY Urobilinogen, 0.2 0.2, 1.0 04/10/2021 [facility] UA EU/dL 5:18 PM REHABILITATION SERVICES MANAGER LABORATORY Specimen Anatomical Collection Method Collection Time Receive d Time (Source) Location / / Volume Laterality Urine specimen URINE SPECIMEN 04/10/2021 4:40 PM 04/10 5:14 (specimen) OBTAINED BY CLEAN REHABILITATION SERVICES MANAGER PM REHABILITATION SERVICES MANAGER CATCH PROCEDURE / Unknown Swapna Hubbard MD URINE ORDERABLE Performing Organization Address City/State/ZIP Code Phon e Number [facility] [address] [place] [address] (ABNORMAL) Basic Metabolic Profile (04/10/2021 2:28 PM REHABILITATION SERVICES MANAGER) Analysis Performed At Patho logist Time Signature SODIUM 135 (L) 136 - 145 DIMENSION EXL 04/10/2021 [facility] mmol/L ANALYZER 3:05 PM REHABILITATION SERVICES MANAGER LABORATORY POTASSIUM 3.6 3.5 - 5.1 DIMENSION EXL 04/10/2021 [facility] mmol/L ANALYZER 3:05 PM REHABILITATION SERVICES MANAGER LABORATORY CHLORIDE 102 98 - 107 DIMENSION EXL 04/10/2021 [facility] mmol/L ANALYZER 3:05 PM REHABILITATION SERVICES MANAGER LABORATORY CARBON DIOXIDE 26 21 - 32 DIMENSION EXL [facility]10/[facility]/L [facility] 3:05 PM REHABILITATION SERVICES MANAGER LABORATORY BUN (UREA 12 7 - 18 DIMENSION EXL 04/10/2021 [facility] NITRO) mg/dL ANALYZER 3:05 PM REHABILITATION SERVICES MANAGER LABORATORY CREATININE 1.05 (H) 0.55 - DIMENSION EXL 04/10/2021 [facility] 1.02 ANALYZER 3:05 PM REHABILITATION SERVICES MANAGER LABORATORY mg/dL EST GFR 50 (L) >60 DIMENSION EXL 04/10/2021 [facility] (CKD-EPI) mL/min ANALYZER 3:05 PM REHABILITATION SERVICES MANAGER LABORATORY EST GFR IF 58 (L) >60 DIMENSION EXL 04/10/2021 [facility] AM mL/min ANALYZER 3:05 PM REHABILITATION SERVICES MANAGER LABORATORY GLUCOSE 101 70 - 110 DIMENSION EXL 04/10/2021 [facility] mg/dL ANALYZER 3:05 PM REHABILITATION SERVICES MANAGER LABORATORY CALCIUM, SERUM 9.6 8.5 - DIMENSION EXL 04/10/2021 [facility] 10.1 ANALY[facility]ER 3:05 PM REHABILITATION SERVICES MANAGER LABORATORY mg/dL ANION GAP 7.0 0.0 - DIMENSION EXL 04/10/2021 [facility] 15.0 ANALYZER 3:05 PM REHABILITATION SERVICES MANAGER LABORATORY mmol/L Specimen Anatomical Collection Method Collection Time Receive d Time (Source) Location / / Volume Laterality Blood Collection / 04/10/2021 2:28 PM 2:48 Unknown REHABILITATION SERVICES MANAGER PM REHABILITATION SERVICES MANAGER Swapna Hubbard MD CHEMISTRY ORDERABLE Performing Organization Address City/State/ZIP Code Phon e Number [facility] [address] [place] [address] CBC w/diff (04/10/2021 2:28 PM REHABILITATION SERVICES MANAGER) P athologist Signature WBC 5.9 4.3 - 10.8 04/10/2021 [facility] K/uL 3:01 PM REHABILITATION SERVICES MANAGER LABORATORY RBC 4.59 4.20 - 04/10/2021 [facility] 5.40 M/uL 3:01 PM REHABILITATION SERVICES MANAGER LABORATORY HEMOGLOBIN 14.5 12.0 - 04/10/2021 [facility] 16.0 gm/dL 3:01 PM REHABILITATION SERVICES MANAGER LABORATORY HEMATOCRIT 41.9 36.0 - 04/10/2021 [facility] 48.0 % 3:01 PM REHABILITATION SERVICES MANAGER LABORATORY MCV 91 80 - 100 04/10/2021 [facility] fl 3:01 PM REHABILITATION SERVICES MANAGER LABORATORY MCH 32 27 - 33 pg 04/10/2021 [facility] 3:01 PM REHABILITATION SERVICES MANAGER LABORATORY MCHC 35 33 - 36 04/10/2021 [facility] gm/dL 3:01 PM REHABILITATION SERVICES MANAGER LABORATORY RDW 12.1 11.5 - 04/10/2021 [facility] 14.5 % 3:01 PM REHABILITATION SERVICES MANAGER LABORATORY PLATELET COUNT 234 150 - 400 04/10/2021 [facility] K/UL 3:01 PM REHABILITATION SERVICES MANAGER LABORATORY MPV 11.7 6.5 - 12 04/10/2021 [facility] 3:01 PM REHABILITATION SERVICES MANAGER LABORATORY PMN % 53.7 % 04/10/2021 [facility] 3:01 PM REHABILITATION SERVICES MANAGER LABORATORY IG% 0.2 <=1.0 % 04/10/2021 [facility] 3:01 PM REHABILITATION SERVICES MANAGER LABORATORY LYMPH % 38.0 % 04/10/2021 [facility] 3:01 PM REHABILITATION SERVICES MANAGER LABORATORY MONO % 5.9 % 04/10/2021 [facility] 3:01 PM REHABILITATION SERVICES MANAGER LABORATORY EOS % 1.9 % 04/10/2021 [facility] 3:01 PM REHABILITATION SERVICES MANAGER LABORATORY BASO % 0.3 % 04/10/2021 [facility] 3:01 PM REHABILITATION SERVICES MANAGER LABORATORY PMN ABSOLUTE 3.16 1.80 - 04/10/2021 [facility] 7.80 K/uL 3:01 PM REHABILITATION SERVICES MANAGER LABORATORY IG ABSOLUTE 0.01 K/uL 04/10/2021 [facility] 3:01 PM REHABILITATION SERVICES MANAGER LABORATORY LYMPH ABSOLUTE 2.24 1.00 - 04/10/2021 [facility] 4.00 K/uL 3:01 PM REHABILITATION SERVICES MANAGER LABORATORY MONO ABSOLUTE 0.35 0.00 - 04/10/2021 [facility] 1.00 K/uL 3:01 PM REHABILITATION SERVICES MANAGER LABORATORY EOS ABSOLUTE 0.11 0.00 - 04/10/2021 [facility] 0.45 K/uL 3:01 PM REHABILITATION SERVICES MANAGER LABORATORY BASO ABSOLUTE 0.02 0.00 - 04/10/2021 [facility] 0.20 K/uL 3:01 PM REHABILITATION SERVICES MANAGER LABORATORY NUCL RBC % 0.0 0.0 - 0.0 04/10/2021 [facility] /100 WBC 3:01 PM REHABILITATION SERVICES MANAGER LABORATORY NUCL RBC 0.00 0.00 - 04/10/2021 [facility] ABSOLUTE 0.00 K/uL 3:01 PM REHABILITATION SERVICES MANAGER LABORATORY Specimen Anatomical Collection Method Collection Time Receive d Time (Source) Location / / Volume Laterality Blood Collection / 04/10/2021 2:28 PM 1 2:48 Unknown REHABILITATION SERVICES MANAGER PM REHABILITATION SERVICES MANAGER Swapna Hubbard MD HEMATOLOGY ORDERABLE Performing Organization Address City/[facility]/ZIP [facility] Phon Jelly [address] [address] Extra Tube PST (Lab Use Only) (04/10/2021 2:28 PM REHABILITATION SERVICES MANAGER) Specimen Anatomical Collection Method Collection Time Receive d Time (Source) Location / / Volume Laterality Blood Collection / 04/10/2021 2:28 PM 1 2:48 Unknown REHABILITATION SERVICES MANAGER PM REHABILITATION SERVICES MANAGER Swapna Hubbard MD CHEMISTRY ORDERABLE Performing Organization Address City/[facility]/ZIP Code Phon e Jelly [address] [address] Extra Tube-SST (Lab Use Only) (04/10/2021 2:28 PM REHABILITATION SERVICES MANAGER) Specimen Anatomical Collection Method Collection Time Receive d Time (Source) Location / / Volume Laterality Blood Collection / 04/10/2021 2:28 PM 1 2:48 Unknown REHABILITATION SERVICES MANAGER PM REHABILITATION SERVICES MANAGER Swapna Hubbard MD CHEMISTRY ORDERABLE Performing Organization Address City/[facility]/ZIP Code Phon e Jelly [facility] [address] [place] [address] Extra Tube-EDTA (Lab Use Only) (04/10/2021 2:28 PM REHABILITATION SERVICES MANAGER) Specimen Anatomical Collection Method Collection Time Receive d Time (Source) Location / / Volume Laterality Blood Collection / 04/10/2021 2:28 PM 2:48 Unknown REHABILITATION SERVICES MANAGER PM REHABILITATION SERVICES MANAGER Swapna Hubbard MD HEMATOLOGY ORDERABLE Performing Organization Address City/State/ZIP Code Phon e Number [facility] [facility] [address] [place] [address] EKG (04/10/2021 2:24 PM REHABILITATION SERVICES MANAGER) P athologist Signature EKG [facility] Comment: ? [facility] ? Test Date: ?2021-04-10 Pat Name: ? ALEX REAGAN ?Department: ?? ECC ?Room: ? Gender: ? F ?Human Resources Generalist: ?? Yf : ?1940 ? Requested By: SWAPNA HUBBARD MD Order Number: [id number] ?Danish JEROME: ?? Jagdeep Robbins MD ? Measurements Intervals ?[place] ? Rate: ? 69 ? P: ?58 DE: ? 195 ?QRS: ?-19 QRSD: ? 84 ? T: ?26 QT: ? 366 ? QTc: ?394 ? Interpretive Statements SINUS RHYTHM WITH SINUS ARRHYTHMIA POSSIBLE RIGHT VENTRICULAR CONDUCTION DE LAY [RSR (QR) IN V1/V2] INFERIOR MYOCARDIAL INFARCTION [40+ ms Q WAVE AND/OR ST/T ABNORMALITY IN II/aVF], PROB PROBABLY OLD WITH POSTERIOR EXTENSION [P ROMIN Compared to ECG 08/31/2013 09:24:38 Myocardial infarct finding now present Incomplete right bundle-branch block no longer present Electronically Signed On 04-10-2021 16:42 :50 REHABILITATION SERVICES MANAGER by Jagdeep Robbins MD Specimen (Source) Anatomical Collection Method Collection Time Re ceived Time Location / / Volume Laterality 04/10/2021 2:24 PM REHABILITATION SERVICES MANAGER Narrative This result has an attachment that is no t available. Swapna Hubbard MD EKG ORDERABLE Performing Organization Address City/State/ZIP Code Phon e Number [facility] [address] [place] [address] documented in this encounter Visit Diagnoses Diagnosis Chest tightness - Primary Other chest pain Dizziness Dizziness and giddiness documented in this encounter Care Teams Nipping Machine Operator Relationship Specialty Start Date End Date Anup Evans MD PCP - General Internal Medicine 02/23/[address] [place] [address] Dr Pérez [facility] Internal Medicine [place] [address] Chauncey Bill PCP - Primary Care Clinic [address] PÉREZ [facility] [place] [address] Francesco Bonner MD 08/11/13 documented as of this encounter
--- OUTSIDE RECORDS SUMMARY | 2022-02-13 11:39 | XMS_ITS | Encounter Summary ---
:1940 Author Organization [facility] Address [address] [place] [address] Care Team Providers Name Role Phone Francesco Bonner MD Unavailable Unavailable Anup Evans MD Primary Care Provider [facility] Unavailable [phone] Reason for Referral (Routine) - Open Specialty Diagnoses / Procedures Referred By Contact Refer red To Contact Diagnoses Screening for osteoporosis Postmenopausal Anup Evans MD Procedures XR BONE DENSITY-SPINE & HIP [address] [place] [address] Dr Berman [facility] [place] [phone] Referral ID Status Reason Start Date Expiration Date Visits Requ ested Visits Authorized [id number] Open 05/23/2021 1 1 ACE HELPER (Routine) - Open Specialty Diagnoses / Procedures Referred By Contact Refer red To Contact Diagnoses Tobacco use Pulmonary nodules Anup Evans MD Procedures CT CHEST LOW DOSE W/O CON [address] [place] [address] Dr Berman [facility] [place] [phone] Referral ID Status Reason Start Date Expiration Date Visits Requ ested Visits Authorized [id number] Open 05/23/2021 1 1 ACE HELPER (Routine) - Open Specialty Diagnoses / Procedures Referred By Contact Refer red To Contact Diagnoses Atherosclerosis Other specified symptoms and signs involving the circulatory and respiratory systems Anup Evans MD Procedures HVC VASC CAROTID [address] [address] Internal Medicine [place] [address] 9 Referral ID Status Reason Start Date Expiration Date Visits Requ ested Visits Authorized [id number] Open 05/24/2021 1 1 ACE HELPER Reason for Visit Reason Comments Medication management Blood Pressure Check Medicare wellness non fasting Encounter Details Date Type Department Care Team Description 05/23/2021 Office Visit [facility] Anup Evans, Encounter for Medicare annual wellness exam (Primary Dx); Health Internal PAD (peripheral artery disease) ([facility]); [address] Shena sears; Landy Pérez [facility] Other specified symptoms and signs invol ving the circulatory and respiratory systems ; [address] [place] [address] Internal Med icine Essential hypertension; [address] [place] Hypercholesterolemia; [place] [address] ASCVD (arteriosclerotic cardiovascular d isease); [address] Tobacco use; Pulmonary nodules; Screening for osteoporosis; Postmenopausal Social History Tobacco Use Types Packs/Day Years [...] with No / Unsure 05/23/2021 3:27 PM FURNACE HELPER someone who was confirmed or suspected to have Coronavirus / COVID-19? documented as of this encounter Last Filed Vital Signs Vital Sign Reading Time Taken Comments Blood Pressure 134/72 05/23/2021 3:39 PM FURNACE HELPER Pulse 86 05/23/2021 3:39 PM FURNACE HELPER Temperature 36.7 ??C (98.1 ??F) 05/23/2021 3:39 PM FURNACE HELPER Respiratory Rate - - Oxygen Saturation 97% 05/23/2021 3:39 PM FURNACE HELPER Inhaled Oxygen Concentration - - Weight 75.6 kg (166 lb 11.2 oz) 05/23/2021 3:39 PM FURNACE HELPER Height 156.2 cm (5' 1.5) 05/23/2021 3:39 PM FURNACE HELPER Body Mass Index 30.99 05/23/2021 3:39 PM FURNACE HELPER documented in this encounter Patient Instructions Patient InstructionsAnup Evans MD - 05/23/2021 3:45 PM CST In order to achieve and [...] balance or dizziness, you should see an modular home crew member orvisit a hearing and balance center. ??? Your vision should be checked every year. The Senior Link Age Line is brought to you by the [place] [employer]. A free statewide information and assistance service- the free call [...] -Transportation Assistance -Housekeeping and Chore Services. ??? ACE HELPER documented in this encounter Progress Notes Anup Evans MD - 05/23/2021 3:45 PM CST MEDICARE ANNUAL WELLNESS VISIT Jennifer Cole is a 81 y.o. female who presents today for her annual Medicare Wellness Visit. Patient Care Team: Anup Evans MD as PCP - General (Internal Medicine) [facility] as PCP - Primary Care Clinic Francesco Bonner MD Past Medical history, Surgical History, Family History, Social History and Allergies were reviewed in [facility] and updated today as needed. Current Outpatient Medications: Medication Sig ??? potassium chloride (K-DUR) 20 mEq oral extended release tablet Take 1 tablet (20 mEq) by mouth once daily. ??? rosuvastatin (CRESTOR) 20 mg oral tablet Take 1 tablet (20 mg) by mouth once daily. ??? triamterene-hydrochlorothiazide (MAXZIDE) 37.5-25 mg oral tablet TAKE 1 TABLET BY MOUTH EVERY DAY Social History Tobacco Use ??? Smoking status: Current Every Day Smoker Packs/day: 1.00 Years: 60.00 Pack years: 60.00 Types: Cigarettes ??? Smokeless tobacco: Never Used Vaping Use ??? Vaping Use: Never used Substance Use Topics ??? Alcohol use: Yes [...] notes and vitals have been reviewed Vitals: 05/23/21 1539 BP: 134/72 Pulse: 86 Temp: 98.1 ??F (36.7 ??C) Weight: 75.6 kg (166 lb 11.2 oz) Height: 1.562 m (5' 1.5) Body mass index is 30.99 kg/m??. Hearing Do you have difficulty with your hearing?: No Assessment/Plan: Jennifer Cole was seen today for her Medicare Annual Wellness Visit. I have reviewed all of the above information and it is correct. Information on health care directives from [facility] Choiceswas provided. Additionally, she has been provided a handout on her personalized health advice, list of risk factors, and a screening schedule for recommended testing which we have discussed today (see Pt Instructions). Appropriate tests, referrals and the associated diagnoses have been ordered based on patient's history, risk factors and chronic disease. ACE HELPER Anup Evans MD - 05/23/2021 3:45 PM CST Images from the original note were not included. ?? Jennifer Cole is a pleasant 81 y.o. female seen with [facility] on 05/23/21. CHIEF COMPLAINT: Follow-up medical problems and medications HPI: In general she feels that she is doing relatively well. She has been having no chest pains or angina. No respiratory concerns. She continues to use tobacco products. ACTIVE PROBLEM LIST: Diagnosis ??? DDD (degenerative [...] left arm) ??? PAD (peripheral artery disease) ([facility]) 12/13 Study reveals the following: There is [...] extremities. ??? Essential hypertension ??? Tobacco use Current Outpatient Medications: Medication Sig ??? potassium chloride (K-DUR) 20 mEq oral extended release tablet Take 1 tablet (20 mEq) by mouth once daily. ??? rosuvastatin (CRESTOR) 20 mg oral tablet Take 1 tablet (20 mg) by mouth once daily. ??? triamterene-hydrochlorothiazide (MAXZIDE) 37.5-25 mg oral tablet TAKE 1 TABLET BY MOUTH EVERY DAY Allergies Allergen Reactions ??? Atorvastatin ??? Percocet [Oxycodone-Acetaminophen] Itching Severe itching PHYSICAL EXAM: BP 134/72 (BP Cuff Site: Left arm, BP Cuff Position: Sitting, BP Cuff Size: Regular adult) Pulse 86 Temp 98.1 ??F (36.7 ??C) (Oral) Ht 1.562 m (5' 1.5) Wt 75.6 kg (166 lb 11.2 oz) SpO2 97% BMI 30.99 kg/m?? General: The patient is pleasant and interactive. Speech is fluent. Heart tones are regular. Appreciate no significant carotid bruits. No murmurs. Lung sounds are clearbilaterally with normal respiratory effort. Abdomen is benign with positive bowel sounds. Extremities are without edema. Feet are warm and well-perfused. Neurologic exam is nonfocal. Reflexes are symmetric and of normal response. IMPRESSION: PAD (peripheral artery disease) (HCC) Atherosclerosis Other specified symptoms and signs involving the circulatory and respiratory systems Essential hypertension Hypercholesterolemia ASCVD (arteriosclerotic cardiovascular disease) Tobacco use Pulmonary nodules Screening for osteoporosis Postmenopausal PLAN: Medical problems and medications are reviewed. She continues to smoke. Tobacco cessation is advised.CT chest will be repeated. She has had some pulmonary nodules previously. Order was provided for this. Carotid ultrasound be obtained. DEXA scan order was provided. She is encouraged to stop smoking. She declines all vaccines. She has hypertension. Blood pressure is controlled on present regimen. She will continue same antihypertensive medication regimen. She has hypercholesterolemia. She is on rosuvastatin 20 mg. She will continue same statin. Recent ER visit and labs/studies performed were reviewed with her. Above was discussed with her and questions were answered. She was comfortable and in agreement with the plan. She will contact the clinic with updates in status as needed. ACE HELPER documented in this encounter Plan of Treatment Not on filedocumented as of this encounter Results XR (JAEL) BONE DENSITY-SPINE & HIP (07/05/2021 10:34 AM FURNACE HELPER) Anatomical Region Laterality Modality Extremity Computed Radiography Specimen (Source) Anatomical Collection Method Collection Time Re ceived Time Location / / Volume Laterality 07/05/2021 10:35 AM FURNACE HELPER Impressions 07/05/2021 10:37 AM FURNACE HELPER IMPRESSION: Osteopenia. WHO Classification of bone density for p ost-menopausal women, and men over 50 years of age, is as follows: Normal bone density: T score greater callie n -1.0. Osteopenia (Low bone density): T score b etween -1.0 and -2.5. Osteoporosis: T score less than -2.5. ?? REPORT SIGNED BY DR. Gordy Payne Narrative 07/05/2021 10:37 AM FURNACE HELPER EXAM: DEXA BONE DENSITY STUDY DATE: 07/05/2021 10:14 AM COMPARISON: None submitted. CLINICAL DATA: Osteoporosis screening. P ost-menopausal. TECHNIQUE: A bone density evaluation usi ng DEXA (dual energy x-ray absorptiometry) was performed for your patient at the [facility] in [place] using a Hologic (Discovery) unit. FINDINGS: Lumbar [...] was performed for your patient at the [facility] in [place] using a Hologic (Discovery) unit. FINDINGS: Lumbar [...] Gordy Payne Anup Evans MD XRAY ORDERABLE CT (MDIP) CHEST LUNG NODULE - FOLLOW-UP (07/05/2021 10:03 AM FURNACE HELPER) Anatomical Region Laterality Modality Chest Computed Tomography Specimen (Source) Anatomical Collection Method Collection Time Re ceived Time Location / / Volume Laterality 07/05/2021 10:22 AM FURNACE HELPER Impressions 07/05/2021 10:45 AM FURNACE HELPER IMPRESSION: ?? 1. ??New 6 x 8 [...] 03/10/2018. REPORT SIGNED BY DR. Brendan David Narrative 07/05/2021 10:45 AM FURNACE HELPER EXAM: CT CHEST LOW DOSE W/O CON [...] REPORT SIGNED BY DR. Brendan David Anup Evans MD CT ORDERABLE [facility] CAROTID US (06/25/2021 11:58 AM FURNACE HELPER) Specimen (Source) Anatomical Collection Method Collection Time Re ceived Time Location / / Volume Laterality 06/25/2021 10:46 AM FURNACE HELPER Narrative TEST - 06/25/2021 2:47 PM FURNACE HELPER Patient Info Name: ? Jennifer Cole Age: ? 81 years : ? 1940 Gender: ? Female Accession #: ? [id number] Ht: ? 62 in Wt: ? 166 lb BSA: ? 1.84 m2 Technical Quality: ? Diagnostic qual ity Exam Date: ? 06/25/2021 10:46 AM Primary Loc: ? [facility] Patient Status: ? Outpatient Exam Type: ? [facility] CAROTID US Study Info Indications ?Bruit, ??CAD, [...] arteries are evaluated at their proximal segments. X Ray Service Engineer: ? Larry CESPEDES, RVT Referring Physician: ? Anup worthington Ordering Physician: ? Anup Evans Primary Care [...] Report Signatures Finalized by Prasanna ??Jessee on 2 02:47 PM Summary ??* There is no [...] no jose in the left subclavian artery. Procedure Note Prasanna Hooks MD - 06/25/2021Formatt ing of this note might be different from the original. Patient Info Name: Jennifer Cole Age: 81 years : 1940 Gender: Female Ht: 62 in Wt: 166 lb BSA: 1.84 m2 Technical Quality: Diagnostic quality Exam Date: 06/25/2021 10:46 AM Primary Loc: [facility] Patient Status: Outpatient Exam Type: [facility] CAROTID US Study Info Indications Bruit, CAD, [...] arteries are evaluated at their proximal segments. X Ray Service Engineer: Larry CESPEDES, RVT Referring Physician: Anup Evans [...] medical examination at a health care facility PAD (peripheral artery disease) (HCC) Peripheral vascular disease, unspecified Atherosclerosis Generalized and unspecified atherosclero sis Other specified symptoms and signs invol ving the circulatory and respiratory systems Essential hypertension Unspecified essential hypertension Hypercholesterolemia Pure hypercholesterolemia ASCVD (arteriosclerotic cardiovascular d isease) Unspecified cardiovascular disease Tobacco use Tobacco use disorder Pulmonary nodules Other nonspecific abnormal finding of june ng field Screening for osteoporosis Special screening for osteoporosis Postmenopausal Asymptomatic postmenopausal status (age- related) (natural) Atherosclerosis Generalized and unspecified atherosclero sis Other specified symptoms and signs invol ving the circulatory and respiratory systems Tobacco use Tobacco use disorder Pulmonary nodules Other nonspecific abnormal finding of juen ng field Screening for osteoporosis Special screening for osteoporosis Postmenopausal Asymptomatic postmenopausal status (age- related) (natural) documented in this encounter Care Teams Bench Tool Maker Relationship Specialty Start Date End Date Anup Evans MD PCP - General Internal Medicine 02/23/[address] [place] [address] Dr Pérez [facility] [place] [address] [facility] PCP - Primary Care Clinic [address] [place] [address] DR PÉREZ [address] [place] [address] Francesco Bonner MD 08/11/13 documented as of this encounter
--- OUTSIDE RECORDS SUMMARY | 2022-02-13 11:39 | XMS_ITS | Encounter Summary ---
:1940 Author Organization [facility] Address [address] [place] [address] Care Team Providers Name Role Phone Francesco Bonner MD Unavailable Unavailable Anup Evans MD Primary Care Provider [facility] Unavailable [phone] Reason for Referral Consultation (Routine) - Closed Specialty Diagnoses / Procedures Referred By Contact Refer red To Contact Orthopedics Diagnoses Primary osteoarthritis of left knee Rob Raymond MD O'Neill, Brian T, MD [address] [place] [address] [facility] [address] [place] [address] 104 103 [place] [address] [place], [place] [address] Referral ID Status Reason Start Date Expiration Date Visits V isits Requested Authorized [id number] Closed Specialty 01/16/2018 1 1 Services Required Reason for Visit Reason Comments Knee pain Encounter Details Date Type Department Care Team Description 01/16/[address] [facility] Rob Raymond, Primary osteoarthritis Health Clinic - of left knee (Primary [address] Blackwood) [address] [place] [address] [address] [place] [address] [phone] Social History Tobacco Use Types Packs/Day Years [...] Sign Reading Time Taken Comments Blood Pressure 138/52 01/16/2018 1:48 PM CDT Pulse 88 01/16/2018 1:48 PM CDT Temperature 36.6 ??C (97.9 ??F) 01/16/2018 1:48 PM CDT Respiratory Rate - - Oxygen Saturation 97% 01/16/2018 1:48 PM CDT Inhaled Oxygen Concentration - - Weight 71.3 kg (157 lb 1.9 oz) 01/16/2018 1:48 PM CDT Height - - Body Mass Index 27.83 07/10/2016 9:30 AM DAY TREATMENT CLINICIAN/ART THERAPIST documented in this encounter Progress Notes Rob Denise Raymond MD - 01/16/2018 2:00 PM CDT SUBJECTIVE OR HISTORY OF PRESENT ILLNESS: Patient presents with concerns regarding ongoing left kneepain. She was seen for this earlier this year and referred to orthopedics. At that time x-ray showedsignificant degenerative changes and replacement surgery was recommended per patient. She is very rel uctant to have this pursued. She did have a cortisone injection which was of transient benefit per her report Her son got her a knee brace to try and she's found that somewhat helpful She's been taking Tylenol and ibuprofen with some transient relief MEDICATIONS: Current Outpatient Prescriptions: ??? diclofenac sodium 1 % Top gel, Apply 4 g to skin four times a day as needed., Disp: 100 g, Rfl: 5 ??? rosuvastatin (CRESTOR) 20 mg oral tablet, Take 1 tablet (20 mg) by mouth once daily., Disp: 90 tablet, Rfl: 3 ??? triamterene-hydrochlorothiazide (MAXZIDE) 37.5-25 mg oral tablet, TAKE ONE TABLET BY MOUTH ONCE DAILY, Disp: 90 tablet, Rfl: 0 REVIEW OF SYSTEMS: Remainder of a comprehensive review of systems was negative. PHYSICAL EXAMINATION: GENERAL: Patient appeared well. Was alert and attentive. VITAL SIGNS: BP 138/52 (BP Cuff Site: Left arm, BP Cuff Position: Sitting, BP Cuff Size: Large adult) Pulse 88 Temp 97.9 ??F (36.6 ??C) (Oral) Wt 71.3 kg (157 lb 1.9 oz) SpO2 97% BMI 27.83 kg/m?? . She had obvious discomfort with movement and weightbearing. There was some generalized swelling of the knee which was not overtly inflamed. She was somewhat tender along the joint line laterally but not medially. There is no tenderness over the patella and she had good range of motion. ASSESSMENT AND PLAN: Left knee pain with significant DJD by previous x-ray. Patient probably will benefit from replacement surgery and I did advise her of that. She prefer to see a specialist in the area here and have referred her to Dr. Nina at [facility] orthopedics. Gen. management advice was reviewed. She will follow-up with orthopedics Rob Raymond MD documented in this encounter Plan of Treatment Scheduled Referrals Name Type Priority Associated Diagnoses Order [facility] REFERRAL ORTHOPEDICS Referral Routine Primary osteoarthrit is of Ordered: 01/16/2018 left knee documented as of this encounter Visit Diagnoses Diagnosis Primary osteoarthritis of left knee - Pr imary Primary localized osteoarthrosis, lower leg documented in this encounter Care Teams Terminal Manager Relationship Specialty Start Date End Date Anup Evans MD PCP - General Internal Medicine 02/23/[address] [place] [address] Dr Pérez [address] [place] [address] Chauncey Bill PCP - Primary Care Clinic [address] [place] [address] DR PÉ[address] [place] [address] Francesco Bonner MD 08/11/13 documented as of this encounter
--- OUTSIDE RECORDS SUMMARY | 2022-02-13 11:40 | XMS_ITS | Encounter Summary ---
:1940 Author Organization [facility] Address [address] [facility] [place] [address] Care Team Providers Name Role Phone Francesco Bonner MD Unavailable Unavailable Anup Evans MD Primary Care Provider [facility] Unavailable [phone] Encounter Details Date Type Department Care Team Description 05/30/2016 Order-Scan [facility] Venus Velazquez MD Trauma Services Clin ic [address] [facility] [address] [facility] [address] [place] [address] N [id number] [place] [address] [place], [place] [address] [phone] Social History Tobacco Use Types Packs/Day Years [...] Name Priority Date/Time Associated Diagnosis Comme nts SCANNED LAB Routine 05/29/2016 documented in this encounter Results SCANNED LAB (05/29/2016) Narrative This result has an attachment that is no t available. Mindi Velazquez MD MICROBIOLOGY ORDERABLE documented in this encounter Visit Diagnoses Not on filedocumented in this encounter Care Teams Manufacturing Coordinator Relationship Specialty Start Date End Date Anup Evans MD PCP - General Internal Medicine 02/23/[address] [place] [address] Dr Pérez [facility] [place] [address] Landy [facility] PCP - Primary Care Clinic [address] [place] [address] DR PÉREZ [facility] [place] [address] Francesco Bonner MD 08/11/13 documented as of this encounter
--- OUTSIDE RECORDS SUMMARY | 2022-02-13 11:40 | XMS_ITS | Encounter Summary ---
:1940 Author Organization [facility] Address [address] [place] [id number] Care Team Providers Name Role Phone Francesco Bonner MD Unavailable Unavailable Anup Evnas MD Primary Care Provider [facility] Unavailable [phone] Reason for Referral (Routine) - Closed Specialty Diagnoses / Procedures Referred By Contact Refer red To Contact Kwaku Naranjo, Danii Majano MD [address] [place], [place] [address] Phone: Fax: Referral ID Status Reason Start Date Expiration Date Visits Requ ested Visits Authorized [id number] Closed 05/11/2016 11/07/2016 1 1 Question Answer Specify time frame for follow up? 2 Weeks Comments Call [phone] to schedule follow up appointment with Dr. Lucia in 10-14 days for suture removal. 1 Ok to shower; however, keep incision d ry by placing a plastic covering over the wound. Ok to shower without covering the incision 5 days after your surgery. 2 You must return for suture removal as instructed. 3 Have someone look at your incision te ly. Watch for signs of infection (redness, swelling, purulent drainage, fevers) benjamin joanie our office [phone] if you notice any signs/symptoms of infection. 4 Your incision may drain while you are at home. Anticipate the drainage to be signifiantly less/have stopped [address] surgery. If it continues to drain a large amount after 7 days please call our offi ce. A bandage may be placed over the incision; however, if no drainage is not ed, the incision can be left open to the air. 5 [address] driving while taking narcotic pain medication. 6 Take your pain medication as prescribe d/as needed for 5 days following your procedure. Then transition to taking tyl enol or ibuprofen. 7 No lifting > 10 lbs. 8 Be up/walking as tolerated. Slowly inc rease the amount that you are walking. DA[employer]Y C[employer]LE [employer]ER (Routine) - Closed Specialty Diagnoses / Procedures Referred By Contact Refer red To Contact Procedures Janene Urrutia MD Discharge Home Care Services [address] [facility] [place] [address] Referral ID Status Reason Start Date Expiration Date Visits Requ ested Visits Authorized [id number] Closed 05/11/2016 11/07/2016 1 1 DA[employer]Y CATT[employer]ER (Routine) - Closed Specialty Diagnoses / Procedures Referred By Contact Refer red To Contact Procedures Janene Urrutia MD Discharge [address] [facility] [place] [address] 2 Referral ID Status Reason Start Date Expiration Date Visits Requ ested Visits Authorized [id number] Closed 05/11/2016 11/07/2016 1 1 [employer] Reason for Visit Inpatient Admission Specialty Diagnoses / Procedures Referred By Contact Refer red To Contact Diagnoses post op L-5 S-1 laminectomy/ discectomy infection Referral ID Status Reason Start Date Expiration Date Visits Requ ested Visits Authorized [id number] 1 1 Encounter Details Date Type Department Care Team Description 05/01/2016 - Hospital Encounter A7 Hm-Hospitalist [address] [place] [id number] 05/11/2016 3300 Janene Padilla MD [address] [facility] [place] [address] [place] [address] Social History Tobacco Use Types Packs/Day Years Used Date Smoking Tobacco: Every Day Cigarettes 1 60 Smokeless Tobacco: Never Tobacco Cessation: Ready to Quit: No; Co unseling Given: No Alcohol Use Standard Drinks/Week Comments Yes 0 [...] Sign Reading Time Taken Comments Blood Pressure 146/70 05/11/2016 7:23 AM STUD [employer] Pulse 74 05/11/2016 7:23 AM STUD [employer] Temperature 36.9 ??C (98.5 ??F) 05/11/2016 7:23 AM STUD [employer] Respiratory Rate 16 05/11/2016 7:23 AM STUD [employer] Oxygen Saturation 94% 05/11/2016 7:23 AM STUD [employer] Inhaled Oxygen Concentration - - Weight 69.4 kg (153 lb) 05/01/2016 4:10 PM STUD [employer] Height 157.5 cm (5' 2) 05/01/2016 4:10 PM STUD [employer] Body Mass Index 27.98 05/01/2016 4:10 PM STUD [employer] documented in this encounter Discharge Summaries Janene Urrutia MD - 05/11/2016 10:37 AM CST Discharge Summary Attending Physician: Nitin-Hospitalist Admit Date: 05/01/2016 Jennifer Cole 76 y.o. female She discharged to home with home care. Primary Care Physician: Anup Evans MD DISCHARGE DX: Postop back infection Sepsis Dyspnea Pruritus Back pain Toxic encephalopathy Constipation HOSPITAL COURSE: 76-year-old white female who recently had an L5-S1 discectomy on 04/23/[address] Lucia. Developeda high fever to 102, worsening back pain and worsening pain. She was admitted to the hospital with sepsis and toxic metabolic encephalopathy, both now resolved. Her cultures have grown MSSA and she hasbeen on Ancef changed to unasyn the other day over concerns for possible lung infection. I don't think she has a significant lung infection, more atelectasis. Now postop day 1 CT aspiration and postop day 0 I/D of the back, where gross pus was seen. [place] to have deeper infection, osteomomyelitis of the back. 1. Sepsis: Secondary to postop back surgery infection. Initially febrile but has subsequently been afebrile for the last days. Cultures positive for MSSA and the plan is to continue with the wound VAC for her surgical incision dehiscence. She was on Ancef but then was changed to Unasyn over the respiratory issues. Now awaiting cultures from the deeper infection and ID feels that clinically she has osteomyelitis. She will need at least a 4 week course of possibly even longer of IV antibiotics. Lengthof therapy per them. 2. Dyspnea sec to atelectasis secondary to not taking deep breaths secondary to discomfort with her back. She has a long smoking history, 1 pack per day. Chest x-ray is concerning for a right lower lobe developing infiltrate versus atelectasis, although clinically, again I think it's atelectasis. She has been using the incentive spirometry and I encouraged her to continue to do that. She continues toimprove. 3. Pruritus. Apparently has been having difficulty with itching particularly in her hands when she takes the Percocet. Sons in the room and apparently all of them also have similar issue. Patient was unaware that she had any drug allergies. Will trial some po Dilaudid and see if she tolerates that, denies that she had any itching with that. 4. Back pain. Secondary to her infection and recent surgery. MRI with increased fluid, tapped and now I/D. Pain does seem better. 5. Constipation. Adding some additional oral medications. Related to the narcotics. 6. Toxic metabolic encephalopathy, now resolved. Undoubtedly secondary to her infection. PROCEDURES: Wound VAC placement CT aspiration 05/08/16 I/D abscess 05/09/16 ?? IMAGING: Lumbar MRI: FINDINGS: 5 lumbar vertebrae are assumed. Lumbar vertebrae are normal in height and alignment. Mild marrow edema along the L5 and S1 pedicles bilaterally, new at left L5 but otherwise stable elsewhere. Vertebral height is maintained. Mild intervertebral disc desiccation and vacuum disc phenomenon at L5-S1 are unchanged. Mild intervertebral disc desiccation from L1 L2-L5 S1 is again noted.Distal thoracic spinal cord and conus medullaris, terminating at the L2 level, are normal-appearing. ? Interval L5 laminectomy is seen. Residual dorsal paraspinal fluid collection centered at L5-S1 extends to the laminectomy site of L5, measuring in greatest dimension 3.2 cm AP by 3.8 cm transverse by 4.5 cm craniocaudally. Marginal enhancement of this fluid collection is concerning for superimposed infection. No intrathecal arachnoiditis is apparent. ? L5-S1: Interval dorsal laminectomy. Mild residual circumferential disc bulging without mass effect on the traversing S1 nerve roots. No central canal stenosis. Prominent facet arthrosis bilaterally. Moderate neural foraminal stenosis bilaterally, right greater than left, from inferior foraminal disc extension and vertical foraminal height loss, stable. No deformity of the exiting nerve roots. ? L4-5: Minimal disc bulging. Flattening of the ventral thecal sac. Stable small right paracentral annular degeneration. Mild facet and moderate dorsal ligamentous hypertrophy. No central canal stenosis.Mild inferior foraminal stenosis bilaterally from inferior foraminal disc extension, without deformity of the exiting nerve roots. Stable. ? L3-4, L2-3, L1-L2: No focal disc herniation. Patent central canal and neural foramina. Stable. ? IMPRESSION IMPRESSION: ?? 1. At L5-S1, interval midline laminectomy. Small residual marginally enhancing postoperative fluid collection in the subcutaneous fat at L5 and S1, extending to the L5 laminectomy site and measuring 3.2 x 3.8 x 4.5 cm. Adjacent more diffuse paraspinal soft tissue enhancement. Appears is concerning scott infected postoperative fluid collection. 2. At L5-S1, mild residual circumferential disc bulging without displacement or impingement of traversing S1 nerve roots. Presumed postoperative epidural enhancement circumferential to the traversing S1 nerve roots, right greater than left. 3. Moderate bilateral L5-S1 neural foraminal stenosis without deformity of the exiting nerve roots, stable. 4. Unchanged mild lumbar disc degeneration at L4-5 without central canal stenosis. Stable mild bilateral L4-5 neural foraminal stenosis. ?? Chest x ray-- FINDINGS: ? The cardiac configuration is stable. The pulmonary vasculature is within normal limits for this portable semiupright AP technique. Patchy opacities are noted within the lung bases consistent with bibasilar consolidation versus atelectasis. No evidence of a pleural effusion or pneumothorax. ? IMPRESSION IMPRESSION: ? Patchy bibasilar pulmonary opacities in noted consistent with bibasilar consolidation and/or atelectasis. ?? EXAMINATION: Vitals: 05/10/16 1923 05/10/16 2323 05/11/16 0346 05/11/16 0723 BP: 111/65 (!) 148/64 (!) 146/70 Pulse: 84 83 74 Resp: Temp: 99 ??F (37.2 ??C) 100 ??F (37.8 ??C) 98.3 ??F (36.8 ??C) 98.5 ??F (36.9 ??C) SpO2: 91% 96% 94% Weight: Height: AWAKE ALERT ORIENTED. CHEST: BILATERAL BS PRESENT. NO WHEEZE. Cvs: SI S2 HEARD. NO MURMER. ABDOMEN: SOFT , BS PRESENT. EXTREMITY: NO CYANOSIS OR EDEMA. MSK: NO JOINT TENDERNESS OR SWELLING. NEURO: AWAKE, NORMAL SPEECH, GROSSLY MOVING EXTREMITIES. LABS: No Lab Results Found (last 72 hours) Discharge Medications DISCHARGE MEDICATIONS: Current Discharge Medication List NEW MEDICATIONS Details cyclobenzaprine (FLEXERIL) 5 mg oral tablet Take 1 tablet (5 mg) by mouth every 8 (eight) hours as needed. Qty: 60 tablet, Refills: 0 HYDROmorphone (DILAUDID) 2 mg oral tablet Take 0.5-1 tablets (1-2 mg) by mouth every 4 (four) hours as needed for Pain. Qty: 30 tablet, Refills: 0 sodium chloride 0.9 % IV solution 50 mL with Cefazolin 10 gram Recon Soln 2,000 mg 2,000 mg by Intravenous route every 8 (eight) hours for 40 days. DISCONTINUED MEDICATIONS cyanocobalamin 500 mcg oral Tab DISCHARGE PROCEDURES AND FOLLOW-UP Discharge Procedure Orders BUN and Creatinine Standing Status: Standing Number of Occurrences: 4 Standing Exp. Date: 05/10/17 AST (SGOT) Standing Status: Standing Number of Occurrences: 4 Standing Exp. Date: 05/10/17 CBC / Diff Standing Status: Standing Number of Occurrences: 4 Standing Exp. Date: 05/10/17 C Reactive Protein Standing Status: Standing Number of Occurrences: 4 Standing Exp. Date: 05/10/17 Discharge Home Care Services Home Care FACE to FACE Physician Encounter for Jennifer Cole I certify that this patient is under my care and that I, or a nurse practioner or physician's hair assistant working with me, had a [id number] encounter that meets the physician kvuw-an-ptab encounter requirements. The encounter with the patient was in whole or in part for the following medical conditions which is the primary reason for home health care: after care following surgery and infectious process. I certify that, based on my findings, the following services are medically necessary home health services: Long Term, Physical Therapy and Occupational Therapy. My clinical findings support the need for the above services because Jennifer Cole needs assessment of medication response and effectiveness , home exercise program for function and safety and infusion therapy. This patient is homebound because she has difficulty with ambulation/transfers related to after care following surgery and infectious process. Requires use of walker and another person . Is patient homebound? Yes Services needed: Long Term Services needed: Physical Therapy Services needed: Occupational Therapy Appointment urgency: 1-2 Days Reason for visit / clinical data: back surgery with infection Specify home care services? Skilled Home Care When was the [id number] encounter? 05/11/2016 Name of home care agency Home Health Discharge Disposition? Home Health Care Agency Expected Discharge Date? 05/11/2016 Follow Up Referral Priority: Routine Referred to Provider: DANII LUCIA Laurel A., MD [address] [facility].[address] [facility] [address] Call in 2 week([place]) [place] [address] [facility] [address] [facility] [phone] , More than 30 min taken in discharging and coordinating the care for this patient. Janene Urrutia MD [employer] documented in this encounter Medications at Time of Discharge Medication Sig Dispensed Refills Start Date End Date cyanocobalamin 500 mcg Take 500 mcg by mouth 0 05/28/2016 oral Tab once daily. cyclobenzaprine Take 1 tablet (5 mg) 60 tablet 0 05/11/2016 05/20/2017 (FLEXERIL) 5 mg oral by mouth every 8 tablet (eight) hours as needed. HYDROmorphone (DILAUDID) Take 0.5-1 tablets 30 tablet 0 03/201606/17/2016 2 mg oral tablet (1-2 mg) by mouth every 4 (four) hours as needed for Pain. magnesium hydroxide Take 30 mL by mouth 0 016 05/28/2016 (MILK OF MAGNESIA) 400 once a day as needed mg/5 mL oral suspension (if no response after polyethylene glycol.). polyethylene glycol Take 17 g by mouth 0 05/11/20 16 05/28/2016 (MIRALAX) 17 gram oral once daily. packet sodium chloride 0.9 % IV 2,000 mg by 0 05/10/2016 06/19/2016 solution 50 mL with Intravenous route Cefazolin 10 gram Recon every 8 (eight) hours Soln 2,000 mg for 40 days. documented as of this encounter Progress Notes Ana Child RN - 05/11/2016 10:37 AM CST [id number] - [id number] Code Status:Full Fall Risk:Yes Identifiers in place:yes Isolation: No Diabetic:No Accu-checks:none Diet: general Stas Scale: 20 Last repositioned: positioning well per self Diagnosis: s/p lami infection Shift Events: plan to home today Pain Level: mild Receiving:Narcotics - Oral Weight bearing status: WBAT Mobility:good per self and walker IV access present: Yes; PICC SL'd Dressing: CDI yes; Changed:no Other skin impairment: not present GI/: urine clear yellow, voiding per toilet Anticoagulation: heparin Psychosocial: Oriented Jennifer Cole [id number] P: Discharge A: Discharged via wheelchair to home with Home Health Care at 1035 escorted by nurse I: Discharge information and arrangements included: review of written discharge instructions, reviewof purpose and side effects of new medication, prescriptions sent with patient, belongings list completed. R:Patient expressed understanding of information. Ana Child RN DA[employer] Kwaku Naranjo PA-C - 05/11/2016 8:56 AM CST NSG NOTE: S: Stable overnight. No acute changes. O: Vitals: 05/10/16 1923 05/10/16 2323 05/11/16 0346 05/11/16 0723 BP: 111/65 (!) 148/64 (!) 146/70 Pulse: 84 83 74 Resp: Temp: 99 ??F (37.2 ??C) 100 ??F (37.8 ??C) 98.3 ??F (36.8 ??C) 98.5 ??F (36.9 ??C) SpO2: 91% 96% 94% Weight: Height: Awake, alert. Sitting up in bed. Incision CDI. Sutures in place. Drain out. 5/5 strength throughout. No focal weakness. A/P: POD 2 s/p wound washout. Plan for outpatient abx per infectious disease. Okay to dishcarge at any time from NSG standpoint. F/u is in. Kwaku Naranjo PA-C 8:57 AM Pager [phone] DA[employer] Viktoria Chino RN - 05/11/2016 7:22 AM CST SBAR Staph infected lumbar incision. I & D, POD #2. Dressing to lumbar spine c/d/i. Pt able to move all her extremities. Up to bathroom with walker. Elevated temp at start of shift. Tylenol 650mg po given. Pt on Ancef as ordered. 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 Pt to d/c home with PICC.Tempdown to 98.3 @ this time. Received dilaudid 1mg po x 1 for L hip pain. Pt reports pain better on reassessment. Pt is encouraged to use IS. Pt alert and oriented x 3. BP (!) 148/64 Pulse 83 Temp 98.3 ??F (36.8 ??C) Resp 16 Ht 5' 2 (1.575 m) Wt 69.4 kg (153 lb) SpO2 96% BMI 27.98 kg/m2 DA[employer] Janene Urrutia MD - 05/10/2016 11:33 PM CST [facility] PROGRESS NOTE Chart reviewed SUBJECTIVE: Pt feels better, pain better controlled.No chest pain or SOB. OBJECTIVE: Wt Readings from Last 2 Encounters: 05/01/16 69.4 kg (153 lb) 04/16/16 69.9 kg (154 lb 3.2 oz) Temp (24hrs), Av.8 ??F (37.1 ??C), Min:97.7 ??F (36.5 ??C), Max:100 ??F (37.8 ??C) BP (!) 148/64 Pulse 83 Temp 100 ??F (37.8 ??C) Resp 16 Ht 5' 2 (1.575 m) Wt 69.4 kg (153 lb) SpO2 96% BMI 27.98 kg/m2 O2 Delivery Source: Room Air O2 LPM: 2 LPM No data found. Intake/Output Summary (Last 24 hours) at 05/10/16 2333 Last data filed at 05/10/16 1943 Gross per 24 hour Intake 1060 ml Output 200 ml Net 860 ml ; GENERAL APPEARANCE: She is awake and alert very pleasant, in NAD, but sleepy HEENT: OP slightly dry, sclera nonicteric RESPIRATORY: Clear anteriorly, no wheezes Back. Supine on the bed, back is not examined. She does have a Hemovac now. CARDIOVASCULAR: RRR no M/R/G GASTROINTESTINAL: Soft, nontender, no distention, BS heard throughout, no peritoneal signs EXTREMITIES: BELTRAN, No edema : No [place] NEUROLOGIC:No focal deficits, neurovascularly intact in lower extremities LABS: Recent Labs 05/08/16 0517 05/09/16 0532 05/10/16 0549 CREATININE 0.64 0.55 0.80 CALCIUMSERUM 8.4* 8.7 8.7 SODIUM 141 141 142 POTASSIUM 3.8 3.8 4.0 CARBONDIOXI 30 29 33* ANIONGAP 6.0 8.0 4.0 INR 1.1 -- -- GLUCOSE 93 98 89 PROCEDURES: Wound VAC placement CT aspiration 05/08/16 I/D abscess 05/09/16 IMAGING: Lumbar MRI: FINDINGS: 5 lumbar vertebrae are assumed. Lumbar vertebrae are normal in height and alignment. Mild marrow edema along the L5 and S1 pedicles bilaterally, new at left L5 but otherwise stable elsewhere. Vertebral height is maintained. Mild intervertebral disc desiccation and vacuum disc phenomenon at L5-S1 are unchanged. Mild intervertebral disc desiccation from L1 L2-L5 S1 is again noted.Distal thoracic spinal cord and conus medullaris, terminating at the L2 level, are normal-appearing. ?? Interval L5 laminectomy is seen. Residual dorsal paraspinal fluid collection centered at L5-S1 extends to the laminectomy site of L5, measuring in greatest dimension 3.2 cm AP by 3.8 cm transverse by 4.5 cm craniocaudally. Marginal enhancement of this fluid collection is concerning for superimposed infection. No intrathecal arachnoiditis is apparent. ?? L5-S1: Interval dorsal laminectomy. Mild residual circumferential disc bulging without mass effect on the traversing S1 nerve roots. No central canal stenosis. Prominent facet arthrosis bilaterally. Moderate neural foraminal stenosis bilaterally, right greater than left, from inferior foraminal disc extension and vertical foraminal height loss, stable. No deformity of the exiting nerve roots. ?? L4-5: Minimal disc bulging. Flattening of the ventral thecal sac. Stable small right paracentral annular degeneration. Mild facet and moderate dorsal ligamentous hypertrophy. No central canal stenosis.Mild inferior foraminal stenosis bilaterally from inferior foraminal disc extension, without deformity of the exiting nerve roots. Stable. ?? L3-4, L2-3, L1-L2: No focal disc herniation. Patent central canal and neural foramina. Stable. ?? IMPRESSION IMPRESSION: ?? 1. At L5-S1, interval midline laminectomy. Small residual marginally enhancing postoperative fluid collection in the subcutaneous fat at L5 and S1, extending to the L5 laminectomy site and measuring 3.2 x 3.8 x 4.5 cm. Adjacent more diffuse paraspinal soft tissue enhancement. Appears is concerning scott infected postoperative fluid collection. 2. At L5-S1, mild residual circumferential disc bulging without displacement or impingement of traversing S1 nerve roots. Presumed postoperative epidural enhancement circumferential to the traversing S1 nerve roots, right greater than left. 3. Moderate bilateral L5-S1 neural foraminal stenosis without deformity of the exiting nerve roots, stable. 4. Unchanged mild lumbar disc degeneration at L4-5 without central canal stenosis. Stable mild bilateral L4-5 neural foraminal stenosis. Chest x ray-- FINDINGS: ? The cardiac configuration is stable. The pulmonary vasculature is within normal limits for this portable semiupright AP technique. Patchy opacities are noted within the lung bases consistent with bibasilar consolidation versus atelectasis. No evidence of a pleural effusion or pneumothorax. ?? IMPRESSION IMPRESSION: ?? Patchy bibasilar pulmonary opacities in noted consistent with bibasilar consolidation and/or atelectasis. ASSESSMENT: 76-year-old white female who recently had an L5-S1 discectomy on 04/23/[address] Lucia. Developed a high fever to 102, worsening back pain and worsening pain. She was admitted to the hospital with sepsis and toxic metabolic encephalopathy, both now resolved. Her cultures have grown MSSAand she has been on Ancef changed to unasyn the other day over concerns for possible lung infection.I don't think she has a significant lung infection, more atelectasis. Now postop day [address] aspirationand postop day 0 I/D of the back, where gross pus was seen. [place] to have deeper infection, osteomomyelitis of the back. PLAN: 1. Sepsis: Secondary to postop back surgery infection. Initially febrile but has subsequently been afebrile for the last days. Cultures positive for MSSA and the plan is to continue with the wound VAC for her surgical incision dehiscence. She was on Ancef but then was changed to Unasyn over the respiratory issues. Now awaiting cultures from the deeper infection and ID feels that clinically she has osteomyelitis. She will need at least a 4 week course of possibly even longer of IV antibiotics. Lengthof therapy per them. 2. Respiratory. Having increased difficulty with her breathing, seems better. I do think most of it is atelectasis secondary to not taking deep breaths secondary to discomfort with her back. She has a long smoking history, 1 pack per day. Chest x-ray is concerning for a right lower lobe developing infiltrate versus atelectasis, although clinically, again I think it's atelectasis. She has been using the incentive spirometry and I encouraged her to continue to do that. She continues to improve. 3. Pruritus. Apparently has been having difficulty with itching particularly in her hands when she takes the Percocet. Sons in the room and apparently all of them also have similar issue. Patient was unaware that she had any drug allergies. Will trial some po Dilaudid and see if she tolerates that, denies that she had any itching with that. 4. Back pain. Secondary to her infection and recent surgery. MRI with increased fluid, tapped and now I/D. Pain does seem better. 5. Constipation. Adding some additional oral medications. Related to the narcotics. 6. Toxic metabolic encephalopathy, now resolved. Undoubtedly secondary to her infection. CODE STATUS: Full GI prophylaxis: None DVT prophylaxis: Heparin Disposition: Anticipated date of discharge 2 days, Criteria for discharge is ongoing improvement in infection and pain control, placement of PICC line in final cultures. Discussed with patient, nurse. Janene Urrutia MD [employer] Rolando Fajardo RN - 05/10/2016 11:11 PM CST Infected lumber incision , I&D , POD # 1 , Alert and oriented , pain well controlled with 1 mg of Dilaudid every 4 hrs , able to change position in bed . Dressing changed , incision mild drainage, stitches intact . Hemovac accidentally come out . Sensory and Motor good . Up with [address] and toilet . LS clear , mild cough , get winded with moderate activities . Encouraged to use IS , discouraged on smoking . Denies nausea , appetite low . Snacked . PICC RUE , single lumen, for antibiotics ,On Ancef 2 g every 8 hrs ,good blood return . aerospace manager made arrangement with home infusion . Blood pressure 111/65, pulse 84, temperature 99 ??F (37.2 ??C), resp. rate 16, height 5' 2 (1.575 m), weight 69.4 kg (153 lb), SpO2 91 %. PLAN -Discharge home with home care/antibiotic. DAIRY CATTLE FARMER Nnamdi Aguilar, PT - 05/10/2016 12:46 PM CST PT Rehabilitation Services Discharge Note Diagnosis: Patient admitted to [facility] on 05/01/2016 due to L5- S1 infection and encephalopathy s/p L5-S1 laminectomy and disectomy on 04/22 (performed at [facility]). Refer to Jaimee Assessment, Chart Review, and Past Medical History. ? Social History: Patient had discharged home with support from her son after recent back surgery, wasapparently doing well until 05/01 when she developed sharp increase in low back pain with fever as well. She lives in a private home with her , her son and [id number] with stairs to enter with 1 rail. There are stairs within the home with 1 rail. Patient uses no assistive device at baseline. Patient has been independent with ADLs since her surgery. Patient came to PT department via w/c for PT treatment session. Patient is functioning as follows: Patient was in a pleasant mood, eager for discharge. When asked about pain, she stated actually that's good right now, I just got some pain medication. Bed Mobility: Patient performed sit <> supine using log-roll method with verbal cues for technique but no physical assistance required. Patient was able to roll to the left and to the right with SBA. Transfers: Patient performed sit <> stand with supervision. Car: Patient transfers in and out of the car with supervision. Toilet: Patient transfers on and off the toilet with supervision. Ambulation: Patient ambulated 1 x 180, 2 x 120 feet with no assistive device predominantly after starting with a walker but after a short distance transitioned to no assistive device. Supervision for balance only. Stairs: Patient went up and down x 4 steps with 1 rail with SBA. Patient utilized reciprocal patternon the stairs. Education: Patient educated on progress toward goals. Assessment/Plan: Patient is mobilizing safely and independently and is appropriate for discharge to home whenever medically cleared to do so. No further PT indicated at this time or at discharge.. There have been 0/6 COMMUNICATIONS REPRESENTATIVE visits. DAIRY CATTLE FARMER Rolando Valladares MD - 05/10/2016 12:04 PM CST INFECTIOUS DISEASE PROGRESS NOTE SUBJECTIVE Sitting up watching TV. Looks more comfortable. OBJECTIVE BP (!) 132/53 Pulse 75 Temp 97.7 ??F (36.5 ??C) Resp 18 Ht 5' 2 (1.575 m) Wt 69.4 kg (153 lb) SpO2 92% BMI 27.98 kg/m2 Temp (24hrs), Av.4 ??F (36.9 ??C), Min:97.7 ??F (36.5 ??C), Max:99.7 ??F (37.6 ??C) Intake/Output Summary (Last 24 hours) at 05/10/16 1204 Last data filed at 05/10/16 0900 Gross per 24 hour Intake 540 ml Output 1360 ml Net -820 ml Stool Occurrence: 0 occurrence Stool Color: Brown Stool Characteristics: Formed Liquid Stool (ml): 0 ml CURRENT MEDS Current Facility-Administered Medications Medication Dose Route Frequency Provider Last Rate Last Dose ??? saline FLUSH syringe 10 mL 10 mL Intra-Catheter Q8H Rolando Valladares MD 10 mL at 05/10/16 0557 ??? saline FLUSH syringe 10-20 mL 10-20 mL Intra-Catheter PRN Rolando Valladares MD 10 mL at 05/10/16 1015 ??? saline FLUSH syringe 5 mL 5 mL Intravenous Q8H Danii Lucia MD 5 mL at 05/10/16 0600 ??? saline FLUSH syringe 5 mL 5 mL Intravenous PRN Danii Lucia MD 5 mL at 05/10/16 0901 ??? saline FLUSH syringe 5 mL 5 mL Intravenous Q8H Janene Urrutia MD 5 mL at 05/10/16 0557 ??? saline FLUSH syringe 5 mL 5 mL Intravenous PRN Janene Urrutia MD 5 mL at 05/10/16 0808 ??? acetaminophen (TYLENOL) tablet 325-650 mg 1-2 tablet oral Q4H PRN Janene Urrutia MD 650 mg at 05/09/16 0631 ??? ampicillin/sulbactam ( UNASYN ) 1.5 g in sodium chloride 0.9% 100 mL IV piggyback 1.5 g Intravenous Q6H (NS) Mimi Caicedo PA-C 1.5 g at 05/10/16 0857 ??? bisacodyl (DULCOLAX) delayed released tablet 5 mg 5 mg oral DAILY Edita Camacho MD 5 mg at 05/08/16 1050 ??? bisacodyl (DULCOLAX) delayed released tablet 5-15 mg 5-15 mg oral DAILY PRN Janene Urrutia MD 15mg at 05/07/16 1043 ??? cyclobenzaprine (FLEXERIL) tablet 5 mg 5 mg oral Q8H PRN Krystle Cummings PA-C 5 mg at 05/06/16 1601 ??? heparin injection 5,000 Units 5,000 Units Subcutaneous Q8H Janene Urrutia MD 5,000 Units at 05/10/16 0556 ??? HYDROmorphone (DILAUDID) syringe 0.5-1 mg 0.5-1 mg Intravenous Q4H PRN Janene Urrutia MD 0.5 mg at 05/10/16 0806 ??? HYDROmorphone (DILAUDID) tablet 1 mg 1 mg oral Q4H PRN Edita Camacho MD 1 mg at 05/10/16 0605 ??? influenza vaccine [id number] HIGH DOSE (65 years and older) (PF) (FLUZONE HIGH DOSE) 0.5 mL 0.5 mL IntraMUSCULAR ONCE - TOMORROW Daisy Mata, MADELYN 0.5 mL at 05/03/16 0800 ??? lidocaine 1% (XYLOCAINE) injection 0.1-0.3 mL 0.1-0.3 mL Intradermal PRN Janene Urrutia MD 0.1 mL at 05/09/16 0849 ??? lidocaine 1% (XYLOCAINE) injection 1-3 mL 1-3 mL Intradermal PRN Rolando Valladares MD ??? lidocaine 1% / 8.4% sod bicarb (buffered lidocaine) syringe for IV starts 0.1-0.3 mL 0.1-0.3 mL Intradermal PRN Janene Urrutia MD ??? LORazepam (ATIVAN) injection (conc: 2 mg/mL) 1 mg 1 mg Intravenous Q4H PRN Fortino Martines MD1 mg at 05/06/16 2125 ??? magnesium hydroxide (MILK OF MAGNESIA) suspension 30 mL 30 mL oral DAILY PRN Janene Urrutia MD 30 mL at 05/05/16 1256 ??? ondansetron (ZOFRAN) injection 4-8 mg 4-8 mg Intravenous Q8H PRN Janene Urrutia MD 4 mg at 05/09/16 0256 Or ??? ondansetron (ZOFRAN) disintegrating tablet 4-8 mg 4-8 mg oral Q8H PRN Janene Urrutia MD 4 mg at 05/08/16 1050 ??? polyethylene glycol (MIRALAX) packet 17 g 17 g oral DAILY PRN Janene Urrutia MD 17 g at 043 ??? saline with benzyl alcohol injection 0.1-0.3 mL 0.1-0.3 mL Intradermal PRN Danii Lucia MD ??? senna (SENOKOT) tablet 1-2 tablet 1-2 tablet oral Twice Daily Janene Urrutia MD 2 tablet at 05/08/162034 ??? simethicone (MYLICON) chewable tablet 80-160 mg 1-2 tablet oral Q6H PRN Soo Vela, DO 160mg at 05/10/16 0856 ??? sodium chloride 0.9 % IV solution Intravenous CONTINUOUS Soo Vela, DO 75 mL/hr at 05/09/16 0631 75 mL/hr at 05/09/16 0631 ??? sodium phosphates (FLEET) rectal enema 1 enema 1 enema Rectal DAILY PRN Janene Urrutia MD 1 enema at 05/05/16 0956 ALLERGIES Allergies Allergen Reactions ??? Percocet [Oxycodone-Acetaminophen] Itching Severe itching GENERAL APPEARANCE: She is awake and alert and in no acute distress. HEENT: Head - Normocephalic, atraumatic Eyes - Normal lids and conjuntivae, PERRLA, EOMs intact Ears - External normal Nose - No deformity, without masses, no congestion Oropharynx - Oral mucosa and pharnyx normal, moist mucous membranes. NECK: Supple with no adenopathy. RESPIRATORY: Lungs clear to auscultation bilaterally. CARDIOVASCULAR: Normal S1, normal S2, regular rhythmn, without murmur. GASTROINTESTINAL: Soft, non-tender, normal bowel sounds. No masses. HEME/LYMPH/IMMUNOLOGIC: No unusual bleeding or bruising SKIN: Intact, warm, dry. No rashes or lesions. NEUROLOGIC: alert and oriented, moves all extremities EXTREMITIES: No edema or cyanosis. MSK: back dressing not removed Results for orders placed or performed during the hospital encounter of 05/01/16 (from the past 24 hour(s)) Basic Metabolic Profile Result Value Ref Range SODIUM 142 136 - 145 mMol/L POTASSIUM 4.0 3.5 - 5.1 mMol/L CHLORIDE 105 98 - 112 mMol/L CARBON DIOXIDE 33 (H) 21 - 32 mMol/L BUN (UREA NITRO) 4 (L) 7 - 24 mg/dL CREATININE 0.80 0.55 - 1.02 mg/dL EST GFR (MDRD) >60 >60 mL/min EST GFR IF AM >60 >60 mL/min GLUCOSE 89 74 - 106 mg/dL CALCIUM, SERUM 8.7 8.5 - 10.1 mg/dL ANION GAP 4.0 0.0 - 15.0 mMol/L Additional comments: I reviewed the patient's new clinical lab test results. ASSESSMENT Principal Problem: Staphylococcal infection Active Problems: Post-operative infection Sepsis (HCC) Encephalopathy Comments: MSSA lumbar wound with postoperative infection s/p I&D PLAN 1. Change to ancef 2. Will explore outpatient IV antibiotic options Plan on 6 wks of IV therapy from surgical date (through 06/19/2016) Discussed w case mgmt Time: 25 minutes with greater than 50% of time spent with coordination of care and counseling Rolando Valladares MD DAIRY CATTLE FARMER Gracia Young RN - 05/10/2016 8:50 AM CST Drain out this a.m. When RN came into the room. PA aware per family when she rounded this a.m. DAIRY CATTLE FARMER TOSHA Rivera - 05/10/2016 8:49 AM CST Neurosurgery Progress Note S: Drain accidentally pulled out this AM. Cultures from surgery - Staph aureus, sensitivities pending. Awake, alert. Mod back pain. No N/V, motor/sensory complaints. Has been up walking around room. O: BP (!) 141/83 Pulse 89 Temp 98.3 ??F (36.8 ??C) Resp 16 Ht 5' 2 (1.575 m) Wt 69.4 kg (153 lb) SpO2 90% BMI 27.98 kg/m2 Awake, alert. Sitting up in bed. Incision CDI. Sutures in place. Drain out. 5/5 strength throughout. No focal weakness. A/P: Wound dehisence with MSSA infection. S/p washout and re-closure on 05/09. Drain accidentally pulled out 05/10. Cultures pending - Staph aureus, cultures pending. Appreciate ID input. On Unasyn. Continue current cares/therapies. Dispo pending. Appreciate Case Management assistance -- goal is home w/ IV abx. is very sick. Son updated at bedside. PADDY ConroyC Pager: DAIRY CATTLE FARMER Maximo Montez RN - 05/10/2016 6:32 AM CST SBAR END OF SHIFT SBAR POD #1 for I&D, was admitted due to post-op L5-S1 infection done in another facility. Given 1mg dilaudid for pain. Ambulates to BR with assist of 1 and voiding adequately. Dressing was changed, CMS+. Hemovac not compressing. Blood pressure 137/64, pulse 74, temperature 98.5 ??F (36.9 ??C), resp. rate 16, height 5' 2 (1.575m), weight 69.4 kg (153 lb), SpO2 96 %. Diaz RN - 05/10/2016 6:30 AM CST Pt's dressing to back is c/d/i. VSS. CMS intact. Pt's hemovac won't remain compressed. Hemovac tubing in back stab wound has two holes showing. Dressing replaced. Pt then got up and accidentally pulled tubing apart from hemovac. Tubing to back removed intact by short story writer. New dressing to back c/d/i. Charge nurse for 7-3 shift notified. Will notifiy at 0800. Will continue to observe. Blood pressure (!) 141/83, pulse 89, temperature 98.3 ??F (36.8 ??C), resp. rate 16, height 5' 2 (1.575 m), weight 69.4 kg (153 lb), SpO2 90 %. DAIRY CATTLE FARMER Verito Heart RN - 05/09/2016 3:32 PM CST SBAR END OF SHIFT SBAR Admitted Post-op L5-S1 infection. To OR today for I&D . Returned from PACU 1210 Sleepy but awakens easily . Rates pain 2/10 Dressings to back dry and intact. Hemovac patent.Some nausea on return from OR but seems to be improving DAIRY CATTLE FARMER Mimi Caicedo PA-C - 05/09/2016 10:19 AM CST INFECTIOUS DISEASE PROGRESS NOTE SUBJECTIVE In OR OBJECTIVE BP (!) 169/70 Pulse 72 Temp 98.1 ??F (36.7 ??C) Resp 16 Ht 5' 2 (1.575 m) Wt 69.4 kg (153 lb) SpO2 95% BMI 27.98 kg/m2 Temp (24hrs), Av.3 ??F (36.8 ??C), Min:98.1 ??F (36.7 ??C), Max:98.7 ??F (37.1 ??C) MICRO 05/01 wound cx from outside ED: MSSA 05/01 BC x2: NGTD 05/02 BC x2: NGTD 05/08 aspiration of lumbar collection: pending IMAGIN/5 MRI lumbar: 1. At L5-S1, interval midline laminectomy. Small residual marginally enhancing postoperative fluid collection in the subcutaneous fat at L5 and S1, extending to the L5 laminectomy site and measuring 3.2 x 3.8 x 4.5 cm. Adjacent more diffuse paraspinal soft tissue enhancement. Appears is concerning scott infected postoperative fluid collection. 2. At L5-S1, mild residual circumferential disc bulging without displacement or impingement of traversing S1 nerve roots. Presumed postoperative epidural enhancement circumferential to the traversing S1 nerve roots, right greater than left. 3. Moderate bilateral L5-S1 neural foraminal stenosis without deformity of the exiting nerve roots, stable. 4. Unchanged mild lumbar disc degeneration at L4-5 without central canal stenosis. Stable mild bilateral L4-5 neural foraminal stenosis. CURRENT ANTIMICROBIALS IV Unasyn ALLERGIES Percocet [oxycodone-acetaminophen] Intake/Output Summary (Last 24 hours) at 05/09/16 1019 Last data filed at 05/09/16 0930 Gross per 24 hour Intake 1836 ml Output 501 ml Net 1335 ml Stool Occurrence: 1 occurrence (toilet) Stool Color: Brown Stool Characteristics: Formed Liquid Stool (ml): 0 ml PHYSICAL EXAM ASSESSMENT 1. Postop wound infection lumbar spine Surface cx with MSSA No bacteremia MRI now with postop fluid collection that extends to laminectomy site with paraspinal enhancement, concerning for deep infection S/p aspiration 05/08 with foul smelling fluid. Cx pending but may be negative with prior ABx use. S/p I&D 05/09 2. ? Developing pneumonia with rales, cough, and CXR with bibasilar infiltrates Doubt pneumonia PLAN 1. Await culture from aspiration 2. Continue IV Unasyn for MSSA and lung coverage, however not convinced with pneumonia so will likely narrow back to Ancef soon pending aspiration culture 3. Now with deeper fluid collection on MRI, would presume infection and recommend ongoing IV ABx at discharge for 4-6 weeks. Have ordered PICC. Mimi Caicedo PA-C [facility] Infectious Disease DAIRY CATTLE FARMER Edita Camacho MD - 05/09/2016 10:03 AM CST [facility] PROGRESS NOTE Chart reviewed SUBJECTIVE: To the OR today for I/D. thinks her pain is okay at present, she is seen in the PACU. Discussed withher that she was going to need a PICC line and long-term IV antibiotics. Discussed also with infectious disease. OBJECTIVE: Wt Readings from Last 2 Encounters: 05/01/16 69.4 kg (153 lb) 04/16/16 69.9 kg (154 lb 3.2 oz) Temp (24hrs), Av.3 ??F (36.8 ??C), Min:98.1 ??F (36.7 ??C), Max:98.7 ??F (37.1 ??C) BP (!) 169/70 Pulse 72 Temp 98.1 ??F (36.7 ??C) Resp 16 Ht 5' 2 (1.575 m) Wt 69.4 kg (153 lb) SpO2 95% BMI 27.98 kg/m2 O2 Delivery Source: Room Air O2 LPM: 0 LPM No data found. Intake/Output Summary (Last 24 hours) at 05/09/16 1003 Last data filed at 05/09/16 0930 Gross per 24 hour Intake 1836 ml Output 501 ml Net 1335 ml ; GENERAL APPEARANCE: She is awake and alert very pleasant, in NAD, but sleepy HEENT: OP slightly dry, sclera nonicteric RESPIRATORY: Clear anteriorly, no wheezes Back. Supine on the bed, back is not examined. She does have a Hemovac now. CARDIOVASCULAR: RRR no M/R/G GASTROINTESTINAL: Soft, nontender, no distention, BS heard throughout, no peritoneal signs EXTREMITIES: BELTRAN, No edema : No [place] NEUROLOGIC:No focal deficits, neurovascularly intact in lower extremities LABS: Recent Labs 05/07/16 0406 05/08/16 0517 05/09/16 0532 CREATININE 0.52* 0.64 0.55 CALCIUMSERUM 8.2* 8.4* 8.7 SODIUM 142 141 141 POTASSIUM 3.7 3.8 3.8 CARBONDIOXI 28 30 29 ANIONGAP 9.0 6.0 8.0 INR -- 1.1 -- GLUCOSE 102 93 98 PROCEDURES: Wound VAC placement CT aspiration 05/08/16 I/D abscess 05/09/16 IMAGING: Lumbar MRI: FINDINGS: 5 lumbar vertebrae are assumed. Lumbar vertebrae are normal in height and alignment. Mild marrow edema along the L5 and S1 pedicles bilaterally, new at left L5 but otherwise stable elsewhere. Vertebral height is maintained. Mild intervertebral disc desiccation and vacuum disc phenomenon at L5-S1 are unchanged. Mild intervertebral disc desiccation from L1 L2-L5 S1 is again noted.Distal thoracic spinal cord and conus medullaris, terminating at the L2 level, are normal-appearing. ?? Interval L5 laminectomy is seen. Residual dorsal paraspinal fluid collection centered at L5-S1 extends to the laminectomy site of L5, measuring in greatest dimension 3.2 cm AP by 3.8 cm transverse by 4.5 cm craniocaudally. Marginal enhancement of this fluid collection is concerning for superimposed infection. No intrathecal arachnoiditis is apparent. ?? L5-S1: Interval dorsal laminectomy. Mild residual circumferential disc bulging without mass effect on the traversing S1 nerve roots. No central canal stenosis. Prominent facet arthrosis bilaterally. Moderate neural foraminal stenosis bilaterally, right greater than left, from inferior foraminal disc extension and vertical foraminal height loss, stable. No deformity of the exiting nerve roots. ?? L4-5: Minimal disc bulging. Flattening of the ventral thecal sac. Stable small right paracentral annular degeneration. Mild facet and moderate dorsal ligamentous hypertrophy. No central canal stenosis.Mild inferior foraminal stenosis bilaterally from inferior foraminal disc extension, without deformity of the exiting nerve roots. Stable. ?? L3-4, L2-3, L1-L2: No focal disc herniation. Patent central canal and neural foramina. Stable. ?? IMPRESSION IMPRESSION: ?? 1. At L5-S1, interval midline laminectomy. Small residual marginally enhancing postoperative fluid collection in the subcutaneous fat at L5 and S1, extending to the L5 laminectomy site and measuring 3.2 x 3.8 x 4.5 cm. Adjacent more diffuse paraspinal soft tissue enhancement. Appears is concerning scott infected postoperative fluid collection. 2. At L5-S1, mild residual circumferential disc bulging without displacement or impingement of traversing S1 nerve roots. Presumed postoperative epidural enhancement circumferential to the traversing S1 nerve roots, right greater than left. 3. Moderate bilateral L5-S1 neural foraminal stenosis without deformity of the exiting nerve roots, stable. 4. Unchanged mild lumbar disc degeneration at L4-5 without central canal stenosis. Stable mild bilateral L4-5 neural foraminal stenosis. Chest x ray-- FINDINGS: ? The cardiac configuration is stable. The pulmonary vasculature is within normal limits for this portable semiupright AP technique. Patchy opacities are noted within the lung bases consistent with bibasilar consolidation versus atelectasis. No evidence of a pleural effusion or pneumothorax. ?? IMPRESSION IMPRESSION: ?? Patchy bibasilar pulmonary opacities in noted consistent with bibasilar consolidation and/or atelectasis. ASSESSMENT: 76-year-old white female who recently had an L5-S1 discectomy on 04/23/[address] Lucia. Developed a high fever to 102, worsening back pain and worsening pain. She was admitted to the hospital with sepsis and toxic metabolic encephalopathy, both now resolved. Her cultures have grown MSSAand she has been on Ancef changed to unasyn the other day over concerns for possible lung infection.I don't think she has a significant lung infection, more atelectasis. Now postop day 1 CT aspirationand postop day 0 I/D of the back, where gross pus was seen. [place] to have deeper infection, osteomomyelitis of the back. PLAN: 1. Sepsis: Secondary to postop back surgery infection. Initially febrile but has subsequently been afebrile for the last days. Cultures positive for MSSA and the plan is to continue with the wound VAC for her surgical incision dehiscence. She was on Ancef but then was changed to Unasyn over the respiratory issues. Now awaiting cultures from the deeper infection and ID feels that clinically she has osteomyelitis. She will need at least a 4 week course of possibly even longer of IV antibiotics. They will discuss with her and the family about PICC line placement and one antibiotic is appropriate.. Length of therapy per them. 2. Respiratory. Having increased difficulty with her breathing, seems better. I do think most of it is atelectasis secondary to not taking deep breaths secondary to discomfort with her back. She has a long smoking history, 1 pack per day. Chest x-ray is concerning for a right lower lobe developing infiltrate versus atelectasis, although clinically, again I think it's atelectasis. She has been using the incentive spirometry and I encouraged her to continue to do that. She continues to improve. 3. Pruritus. Apparently has been having difficulty with itching particularly in her hands when she takes the Percocet. Sons in the room and apparently all of them also have similar issue. Patient was unaware that she had any drug allergies. Will trial some po Dilaudid and see if she tolerates that, denies that she had any itching with that. 4. Back pain. Secondary to her infection and recent surgery. MRI with increased fluid, tapped and now I/D. Pain does seem better. 5. Constipation. Adding some additional oral medications. Related to the narcotics. 6. Toxic metabolic encephalopathy, now resolved. Undoubtedly secondary to her infection. CODE STATUS: Full GI prophylaxis: None DVT prophylaxis: Heparin Disposition: Anticipated date of discharge 2 days, Criteria for discharge is ongoing improvement in infection and pain control, placement of PICC line in final cultures Discussed care plan with DAHIANA GIVENS and neurosurgery, patient, Case management, RN in PACU. Total time 35minutes Greater than 50% of time on counseling and coordination of care. Edita Camacho MD DAIRY CATTLE FARMER Garima Boyd - 05/09/2016 7:34 AM CST PT Surgery today. Will reschedule tomorrow. DAIRY CATTLE FARMER Maximo Montez RN - 05/09/2016 6:00 AM CST SBAR END OF SHIFT SBAR Patient here with post-op infection following laminectomy done at another facility. afebrile,CMS+. Ambulating to/from commode and bathroom with walker and SBA at times;steady gait. NPO from midnight for debridement of wound today. C/O nausea given 4mg of Zofran and pain, she was given 1 mg dilaudid. Heparin held, pt has surgery today. Blood pressure (!) 144/88, pulse 86, temperature 98.4 ??F (36.9 ??C), resp. rate 18, height 5' 2 (1.575 m), weight 69.4 kg (153 lb), SpO2 92 %. Quinones RN - 05/08/2016 10:23 PM CST END OF SHIFT SBAR Patient here with post -op infection following laminectomy done at another facility. VSS,afebrile,CMS+. Ambulating to/from commode and bathroom with walker and SBA at times;steady gait. Wound vac D/C today for CT. Neuro stopped by and have decided not to continue wound vac at this time. Pain adequately controlled with rest and dilaudid. Regular diet. NPO orders for midnight. For debrediment of wound.Per I & D patient will need IV antibiotics upon discharge likely 1-2 days. DAIRY CATTLE FARMER Suzanne Prieto RN - 05/08/2016 3:31 PM CST SBAR END OF SHIFT SBAR Patient here with post -op infection following laminectomy done at another facility. VSS,afebrile,CMS+. Ambulating to/from bathroom with walker and SBA;steady gait. Wound vac D/C today for CT. Neuro stopped by and have decided not to continue wound vac at this time. Pain adequately controlled with rest and dilaudid. Some nausea this shift, zofran given with good relief. Up with assist of one to bathroom. Regular diet. NPO orders for midnight. Per I D patient will need IV antibiotics upon discharge likely 1-2 days. DAIRY CATTLE FARMER TOSHA Rivera - 05/08/2016 1:40 PM CST Neurosurgery Note S: CT guided aspiration of fluid collection done this AM. Foul-smelly blood fluid obtained. Culturespending. Ongoing back pain, perhaps slightly improved today. Also with nausea and generalized weakness. O: BP (!) 158/82 Pulse 89 Temp 98.2 ??F (36.8 ??C) Resp 18 Ht 5' 2 (1.575 m) Wt 69.4 kg (153 lb) SpO2 90% BMI 27.98 kg/m2 Awake, alert. Laying in bed. Incision covered with dressing. Prevena now removed. 5/5 strength in BLE. A/P: Wound dehiscence with underlying fluid collection. S/p CT guided aspiration on 05/08. Cultures pending but foul-smelling fluid obtained. On Unasyn. Appreciate ID input. Discussed with Dr. Lucia. Recommend I&D and washout of incision -- likely on 05/09. NPO at midnight. Updated son at bedside. Deepali Kline PA-C Pager: DAIRY CATTLE FARMER Mimi Caicedo PA-C - 05/08/2016 1:35 PM CST INFECTIOUS DISEASE PROGRESS NOTE SUBJECTIVE Doing well, glad to be done with aspiration. Breathing improved. Son present with many questions. OBJECTIVE BP (!) 158/82 Pulse 89 Temp 98.2 ??F (36.8 ??C) Resp 18 Ht 5' 2 (1.575 m) Wt 69.4 kg (153 lb) SpO2 90% BMI 27.98 kg/m2 Temp (24hrs), Av.2 ??F (36.8 ??C), Min:98 ??F (36.7 ??C), Max:98.3 ??F (36.8 ??C) MICRO 05/01 wound cx from outside ED: MSSA 05/01 BC x2: NGTD 05/02 BC x2: NGTD 05/08 aspiration of lumbar collection: pending IMAGIN/5 MRI lumbar: 1. At L5-S1, interval midline laminectomy. Small residual marginally enhancing postoperative fluid collection in the subcutaneous fat at L5 and S1, extending to the L5 laminectomy site and measuring 3.2 x 3.8 x 4.5 cm. Adjacent more diffuse paraspinal soft tissue enhancement. Appears is concerning scott infected postoperative fluid collection. 2. At L5-S1, mild residual circumferential disc bulging without displacement or impingement of traversing S1 nerve roots. Presumed postoperative epidural enhancement circumferential to the traversing S1 nerve roots, right greater than left. 3. Moderate bilateral L5-S1 neural foraminal stenosis without deformity of the exiting nerve roots, stable. 4. Unchanged mild lumbar disc degeneration at L4-5 without central canal stenosis. Stable mild bilateral L4-5 neural foraminal stenosis. CURRENT ANTIMICROBIALS IV Unasyn ALLERGIES Percocet [oxycodone-acetaminophen] Intake/Output Summary (Last 24 hours) at 05/08/16 1335 Last data filed at 05/08/16 1138 Gross per 24 hour Intake 1842 ml Output 0 ml Net 1842 ml Stool Occurrence: 0 occurrence Stool Color: Brown Stool Characteristics: Loose Liquid Stool (ml): 0 ml PHYSICAL EXAM GENERAL APPEARANCE: Awake and alert, NAD. HEENT: Eyes - Normal lids and conjunctivae Oropharynx - Oral mucosa and pharynx normal, MMM NECK: Supple without adenopathy. RESPIRATORY: Lungs mild rales RLL (improved) CARDIOVASCULAR: S1/S2, RRR, without murmur, peripheral pulses symmetric. GASTROINTESTINAL: Soft, NT, ND, +BS. Without masses. SKIN: Intact, warm, dry. No rashes or lesions. NEUROLOGIC: alert and appropriate EXTREMITIES: No edema or cyanosis, NT. BACK: dressing over lumbar wound ASSESSMENT 1. Postop wound infection lumbar spine Surface cx with MSSA No bacteremia MRI now with postop fluid collection that extends to laminectomy site with paraspinal enhancement, concerning for deep infection S/p aspiration 05/08 with foul smelling fluid. Cx pending but may be negative with prior ABx use. 2. ? Developing pneumonia with rales, cough, and CXR with bibasilar infiltrates Doubt pneumonia PLAN 1. ? Need for I&D with infected appearing aspiration fluid, defer to neurosurgery 2. Continue IV Unasyn for MSSA and lung coverage, however not convinced with pneumonia so will likely narrow back to Ancef soon pending aspiration culture 3. Now with deeper fluid collection on MRI, would presume infection and recommend ongoing IV ABx at discharge for 4-[address] PICC today. Mimi Caicedo PA-C [facility] Infectious Disease [employer] Edita Camacho MD - 05/08/2016 11:15 AM CST [facility] PROGRESS NOTE Chart reviewed SUBJECTIVE: In bed, back from her procedure. Her wound vac is out; she has ongoing mostly serosangeous drainage on the bandage. Discussion with her about options for treatment with IV antibiotics. Her of 46 years is quite ill, on dialysis 3x a week, heart and stroke issues, diabetic. He is not well and she is worried he is going to soon. He is still getting active dialysis. This is why she is very focused on getting home. Discussed we would do anything we could to get her home or into the [facility] for treatment. Kary gayle updated and will follow up when she has more information. OBJECTIVE: Wt Readings from Last 2 Encounters: 05/01/16 69.4 kg (153 lb) 04/16/16 69.9 kg (154 lb 3.2 oz) Temp (24hrs), Av.2 ??F (36.8 ??C), Min:98 ??F (36.7 ??C), Max:98.4 ??F (36.9 ??C) BP (!) 157/91 Pulse 76 Temp 98 ??F (36.7 ??C) Resp 18 Ht 5' 2 (1.575 m) Wt 69.4 kg (153 lb) SpO2 90% BMI 27.98 kg/m2 O2 Delivery Source: Room Air O2 LPM: 0 LPM No data found. Intake/Output Summary (Last 24 hours) at 05/08/16 1115 Last data filed at 05/08/16 0538 Gross per 24 hour Intake 1842 ml Output 0 ml Net 1842 ml ; GENERAL APPEARANCE: She is awake and alert very pleasant, in NAD but still moves around the bed frequently like she is not comfortable. HEENT: MMM, sclera nonicteric RESPIRATORY: she is more clear today, just a little diminished in the right base. No crackles or wheezes Back. Wound vac is out with just a gauze in, drainage on the inferior aspect.. She has no surrounding erythema. Obviously, I cannot see the wound bed. CARDIOVASCULAR: regular, no murmurs GASTROINTESTINAL: Soft, NTND, BS + throughout, no peritoneal signs EXTREMITIES: BELTRAN, No edema : No Larsen NEUROLOGIC:No focal deficits LABS: Recent Labs 05/06/16 0604 05/07/16 0406 05/08/16 0517 CREATININE 0.65 0.52* 0.64 CALCIUMSERUM 8.3* 8.2* 8.4* SODIUM 140 142 141 POTASSIUM 3.9 3.7 3.8 CARBONDIOXI 27 28 30 ANIONGAP 8.0 9.0 6.0 INR -- -- 1.1 GLUCOSE 96 102 93 PROCEDURES: Wound VAC placement CT aspiration 05/08/16 IMAGING: Lumbar MRI: FINDINGS: 5 lumbar vertebrae are assumed. Lumbar vertebrae are normal in height and alignment. Mild marrow edema along the L5 and S1 pedicles bilaterally, new at left L5 but otherwise stable elsewhere. Vertebral height is maintained. Mild intervertebral disc desiccation and vacuum disc phenomenon at L5-S1 are unchanged. Mild intervertebral disc desiccation from L1 L2-L5 S1 is again noted.Distal thoracic spinal cord and conus medullaris, terminating at the L2 level, are normal-appearing. ?? Interval L5 laminectomy is seen. Residual dorsal paraspinal fluid collection centered at L5-S1 extends to the laminectomy site of L5, measuring in greatest dimension 3.2 cm AP by 3.8 cm transverse by 4.5 cm craniocaudally. Marginal enhancement of this fluid collection is concerning for superimposed infection. No intrathecal arachnoiditis is apparent. ?? L5-S1: Interval dorsal laminectomy. Mild residual circumferential disc bulging without mass effect on the traversing S1 nerve roots. No central canal stenosis. Prominent facet arthrosis bilaterally. Moderate neural foraminal stenosis bilaterally, right greater than left, from inferior foraminal disc extension and vertical foraminal height loss, stable. No deformity of the exiting nerve roots. ?? L4-5: Minimal disc bulging. Flattening of the ventral thecal sac. Stable small right paracentral annular degeneration. Mild facet and moderate dorsal ligamentous hypertrophy. No central canal stenosis.Mild inferior foraminal stenosis bilaterally from inferior foraminal disc extension, without deformity of the exiting nerve roots. Stable. ?? L3-4, L2-3, L1-L2: No focal disc herniation. Patent central canal and neural foramina. Stable. ?? IMPRESSION IMPRESSION: ?? 1. At L5-S1, interval midline laminectomy. Small residual marginally enhancing postoperative fluid collection in the subcutaneous fat at L5 and S1, extending to the L5 laminectomy site and measuring 3.2 x 3.8 x 4.5 cm. Adjacent more diffuse paraspinal soft tissue enhancement. Appears is concerning scott infected postoperative fluid collection. 2. At L5-S1, mild residual circumferential disc bulging without displacement or impingement of traversing S1 nerve roots. Presumed postoperative epidural enhancement circumferential to the traversing S1 nerve roots, right greater than left. 3. Moderate bilateral L5-S1 neural foraminal stenosis without deformity of the exiting nerve roots, stable. 4. Unchanged mild lumbar disc degeneration at L4-5 without central canal stenosis. Stable mild bilateral L4-5 neural foraminal stenosis. Chest x ray-- FINDINGS: ? The cardiac configuration is stable. The pulmonary vasculature is within normal limits for this portable semiupright AP technique. Patchy opacities are noted within the lung bases consistent with bibasilar consolidation versus atelectasis. No evidence of a pleural effusion or pneumothorax. ?? IMPRESSION IMPRESSION: ?? Patchy bibasilar pulmonary opacities in noted consistent with bibasilar consolidation and/or atelectasis. ASSESSMENT: 76-year-old white female who recently had an L5-S1 discectomy on 04/23/[address] Lucia. Developed a high fever to 102, worsening back pain and worsening pain. She was admitted to the hospital with sepsis and toxic metabolic encephalopathy, both now resolved. Her cultures have grown MSSAand she has been on Ancef changed to unasyn the other day over concerns for possible lung infection.I don't think she has a significant lung infection. Will watch her cultures from new tap today; discharge plan up in the air still, IV antibiotics are likely, but whether she can do this at home, the issue. Family is strongly pushing for this, and obviously, this is b/c of the and his condition, although this is the first we are hearing of this. PLAN: 1. Sepsis: Secondary to postop back surgery infection. Initially febrile but has subsequently been afebrile for the last days. Cultures positive for MSSA and the plan is to continue with the wound VAC for her surgical incision dehiscence. She was on Ancef but then ID is thinking she can change to Keflex, however, now has the increased respiratory issues. Length of therapy per them. She will follow-upin the neurosurgeons office 2 days after discharge, although that is now moving target given the increased back pain. New issue is than possible pneumonia so her antibiotics were changed to Unasyn IV and will hold the po Keflex. Now has an increased fluid collection in the back and is getting that aspirated and cultured. Now neurosurgery is planning to take her to the OR tomorrow for an I&D. Likely will need longer term IV antibiotics. 2. Respiratory. Having increased difficulty with her breathing. She is not taking deep breaths secondary to discomfort with her back. She has a long smoking history, 1 pack per day. Chest x-ray is concerning for a right lower lobe developing infiltrate versus atelectasis. She has been using the incentive spirometry and I encouraged her to continue to do that. She is better today! 3. Pruritus. Apparently has been having difficulty with itching particularly in her hands when she takes the Percocet. Sons are in the room and apparently all of them also have similar issue. Patient was unaware that she had any drug allergies. Will trial some po Dilaudid and see if she tolerates that, denies that she had any itching with that. 4. Back pain. Secondary to her infection and recent surgery. MRI with increased fluid, tapped today.Pain does seem better. 5. Constipation. Adding some additional oral medications. Related to the narcotics. 6. Toxic metabolic encephalopathy, now resolved. Undoubtedly secondary to her infection. CODE STATUS: Full GI prophylaxis: None DVT prophylaxis: Heparin Disposition: Anticipated date of discharge 1-2 days, Criteria for discharge is ongoing improvement in infection and pain control Discussed care plan with ID TOSHA and neurosurgery, patient, Case management, RN at bedside. Total time35 minutes Greater than 50% of time on counseling and coordination of care. Edita Camacho MD [employer] Roseline Truong RN - 05/08/2016 9:06 AM CST Pt. Here for aspiration And Radiologist requesting to have wound dressing over wound vac removed foraspiration floor RN called for removal and checking on whether they can do it. PA came to CT and removed dressing and told CT techs to send her back up without dressing and floor will redress. Kelby - 05/08/2016 8:17 AM CST No neb required x 2 days. No indication noted. DC PRN neb per bronchodilator protocol. [employer] Amando Cotton RN - 05/08/2016 6:38 AM CST SBAR END OF SHIFT SBAR Patient here with post -op infection following laminectomy done at another facility. VSS,afebrile,CMS+. Ambulating to/from bathroom with walker and SBA;steady gait. Wound vac over back incision clean,dry and intact;however significant air leak. Attempts to seal leak with new draping not effective. Pain adequately controlled with tylenol and PO dilaudid. NPO since MN. She will be having CT guided aspiration of fluid collection at back incision. Procedure scheduled for 08:00. Per I D patient will need IV antibiotics upon discharge likely 1-2 days. [employer] Ana Child RN - 05/07/2016 7:41 PM CST 1100 - 1900 Code Status:Full Fall Risk:Yes Identifiers in place:yes Isolation: No Diabetic:No Accu-checks:none Diet: general Stas Scale: 20 Last repositioned: repositioning well per self Diagnosis: s/p lami/ discetomy infection DOS: 6 Shift Events: CT apsitation ordered, scheduled for 0800 tomorrow. will be NPO at 2400 and need an INR in the AM. Pain Level: moderate Receiving:Narcotics - Oral Weight bearing status: WBAT Mobility:good w/ Assist of 1 and walker IV access present: Yes; normal saline infusing at 75 Dressing: CDI yes; Changed:no, reinforced to attempt to control the leak on the wound vac Other skin impairment: not present GI/: urine clear yellow and BM per toilet Psychosocial: Oriented Shift interventions:No new interventions RECOMMENDATIONS : Follow existing care plan, See progress notes Ana Child RN Camacho MD - 05/07/2016 4:48 PM CST [facility] PROGRESS NOTE Chart reviewed SUBJECTIVE: Still not entirely comfortable. Moving restlessly in the bed. Son at the bedside. She did get a doseof Dilaudid yesterday and is able to tell me that it did not make her feel itchy. Over night, complained of increased shortness of breath and was evaluated by Dr. Vela, but no changes to the regimen made. Her MRI raises concern that she could have an infection worsening in her back so she is going to have a CT-guided aspiration tonight if they can get it arranged. Family has been updated. I also spoke with Kary jain. She had a challenging interaction with the sons earlier today regarding possible need for TCU placement. Sons were also inappropriate with me yesterday, getting very agitated when attempting to talk about the patient's situation and the plan. May be valuable to have multiple staff in the room when discussing patient's care with the sons. OBJECTIVE: Wt Readings from Last 2 Encounters: 05/01/16 69.4 kg (153 lb) 04/16/16 69.9 kg (154 lb 3.2 oz) Temp (24hrs), Av.5 ??F (36.9 ??C), Min:98.3 ??F (36.8 ??C), Max:98.9 ??F (37.2 ??C) BP (!) 155/92 Pulse 86 Temp 98.3 ??F (36.8 ??C) Resp 16 Ht 5' 2 (1.575 m) Wt 69.4 kg (153 lb) SpO2 93% BMI 27.98 kg/m2 O2 Delivery Source: Room Air O2 LPM: 2.5 LPM No data found. Intake/Output Summary (Last 24 hours) at 05/07/16 1648 Last data filed at 05/07/16 1511 Gross per 24 hour Intake 1710 ml Output 0 ml Net 1710 ml ; GENERAL APPEARANCE: She is awake and alert and in mild distress, not really different today HEENT: MMM, sclera nonicteric RESPIRATORY: Still sounds diminished in the right base with an occasional crackle; left side is otherwise clear no wheezes Back. She has a wound VAC in place in the lumbar region with some leakage at the inferior aspect.. She has no surrounding erythema. Obviously, I cannot see the wound bed. CARDIOVASCULAR: RRR, no murmurs GASTROINTESTINAL: Soft, nontender or distended, BS + throughout, no peritoneal signs EXTREMITIES: BELTRAN, No edema : No Larsen NEUROLOGIC:No focal deficits LABS: Recent Labs 05/05/16 0510 05/06/16 0604 05/07/16 0406 CREATININE 0.72 0.65 0.52* CALCIUMSERUM 8.2* 8.3* 8.2* SODIUM 138 140 142 POTASSIUM 3.9 3.9 3.7 CARBONDIOXI 28 27 28 ANIONGAP 6.0 8.0 9.0 GLUCOSE 136* 96 102 PROCEDURES: Wound VAC placement IMAGING: Lumbar MRI: FINDINGS: 5 lumbar vertebrae are assumed. Lumbar vertebrae are normal in height and alignment. Mild marrow edema along the L5 and S1 pedicles bilaterally, new at left L5 but otherwise stable elsewhere. Vertebral height is maintained. Mild intervertebral disc desiccation and vacuum disc phenomenon at L5-S1 are unchanged. Mild intervertebral disc desiccation from L1 L2-L5 S1 is again noted.Distal thoracic spinal cord and conus medullaris, terminating at the L2 level, are normal-appearing. ?? Interval L5 laminectomy is seen. Residual dorsal paraspinal fluid collection centered at L5-S1 extends to the laminectomy site of L5, measuring in greatest dimension 3.2 cm AP by 3.8 cm transverse by 4.5 cm craniocaudally. Marginal enhancement of this fluid collection is concerning for superimposed infection. No intrathecal arachnoiditis is apparent. ?? L5-S1: Interval dorsal laminectomy. Mild residual circumferential disc bulging without mass effect on the traversing S1 nerve roots. No central canal stenosis. Prominent facet arthrosis bilaterally. Moderate neural foraminal stenosis bilaterally, right greater than left, from inferior foraminal disc extension and vertical foraminal height loss, stable. No deformity of the exiting nerve roots. ?? L4-5: Minimal disc bulging. Flattening of the ventral thecal sac. Stable small right paracentral annular degeneration. Mild facet and moderate dorsal ligamentous hypertrophy. No central canal stenosis.Mild inferior foraminal stenosis bilaterally from inferior foraminal disc extension, without deformity of the exiting nerve roots. Stable. ?? L3-4, L2-3, L1-L2: No focal disc herniation. Patent central canal and neural foramina. Stable. ?? IMPRESSION IMPRESSION: ?? 1. At L5-S1, interval midline laminectomy. Small residual marginally enhancing postoperative fluid collection in the subcutaneous fat at L5 and S1, extending to the L5 laminectomy site and measuring 3.2 x 3.8 x 4.5 cm. Adjacent more diffuse paraspinal soft tissue enhancement. Appears is concerning scott infected postoperative fluid collection. 2. At L5-S1, mild residual circumferential disc bulging without displacement or impingement of traversing S1 nerve roots. Presumed postoperative epidural enhancement circumferential to the traversing S1 nerve roots, right greater than left. 3. Moderate bilateral L5-S1 neural foraminal stenosis without deformity of the exiting nerve roots, stable. 4. Unchanged mild lumbar disc degeneration at L4-5 without central canal stenosis. Stable mild bilateral L4-5 neural foraminal stenosis. Chest x ray-- FINDINGS: ? The cardiac configuration is stable. The pulmonary vasculature is within normal limits for this portable semiupright AP technique. Patchy opacities are noted within the lung bases consistent with bibasilar consolidation versus atelectasis. No evidence of a pleural effusion or pneumothorax. ?? IMPRESSION IMPRESSION: ?? Patchy bibasilar pulmonary opacities in noted consistent with bibasilar consolidation and/or atelectasis. ASSESSMENT: 76-year-old white female who recently had an L5-S1 discectomy on 04/23/[address] Lucia. Developed a high fever to 102, worsening back pain and worsening pain. She was admitted to the hospital with sepsis and toxic metabolic encephalopathy, both now resolved. Her cultures have grown MSSAand she has been on Ancef. Yesterday, increased breathing difficulties and she was changed to Unasyn. Last night, she had a follow-up MRI scan because of increased pain and now neurosurgery is planningto have the fluid collection tapped. Cultures will be sent from that. ID is fearsome that she will need to go out on IV antibiotics. This has not been well received by family. PLAN: 1. Sepsis: Secondary to postop back surgery infection. Initially febrile but has subsequently been afebrile for the last days. Cultures positive for MSSA and the plan is to continue with the wound VAC for her surgical incision dehiscence. She was on Ancef but then ID is thinking she can change to Keflex, however, now has the increased respiratory issues. Length of therapy per them. She will follow-upin the neurosurgeons office 2 days after discharge, although that is now moving target given the increased back pain. New issue is than possible pneumonia so her antibiotics were changed to Unasyn IV and will hold the po Keflex. Now has an increased fluid collection in the back and is getting that aspirated and cultured. Likely will need longer term IV antibiotics. 2. Respiratory. Having increased difficulty with her breathing. She is not taking deep breaths secondary to discomfort with her back. She has a long smoking history, 1 pack per day. Chest x-ray is concerning for a right lower lobe developing infiltrate versus atelectasis. She has been using the incentive spirometry and I encouraged her to continue to do that. 3. Pruritus. Apparently has been having difficulty with itching particularly in her hands when she takes the Percocet. Sons are in the room and apparently all of them also have similar issue. Patient was unaware that she had any drug allergies. Will trial some po Dilaudid and see if she tolerates that, denies that she had any itching with that. 4. Back pain. Secondary to her infection and recent surgery. Neurosurgery is concerned that she's having increased pain today and they would like to repeat an MRI to assess for worsening infection. 5. Constipation. Adding some additional oral medications. Related to the narcotics. 6. Toxic metabolic encephalopathy, now resolved. Undoubtedly secondary to her infection. CODE STATUS: Full GI prophylaxis: None DVT prophylaxis: Heparin Disposition: Anticipated date of discharge 1-2 days, Criteria for discharge is ongoing improvement in infection and pain control Discussed care plan with DAHIANA GIVENS and neurosurgery, patient and family, RN at bedside. Total time 35 minutes Greater than 50% of time on counseling and coordination of care. Edita Camacho MD [employer] Mimi Caicedo PA-C - 05/07/2016 1:52 PM CST INFECTIOUS DISEASE PROGRESS NOTE SUBJECTIVE Back pain much improved today. Still with occasional SOB. OBJECTIVE BP (!) 141/69 Pulse 69 Temp 98.4 ??F (36.9 ??C) Resp 16 Ht 5' 2 (1.575 m) Wt 69.4 kg (153 lb) SpO2 90% BMI 27.98 kg/m2 Temp (24hrs), Av.6 ??F (37 ??C), Min:98.4 ??F (36.9 ??C), Max:98.9 ??F (37.2 ??C) MICRO 05/01 wound cx from outside ED: MSSA 05/01 BC x2: NGTD 05/02 BC x2: NGTD IMAGIN/5 MRI lumbar: 1. At L5-S1, interval midline laminectomy. Small residual marginally enhancing postoperative fluid collection in the subcutaneous fat at L5 and S1, extending to the L5 laminectomy site and measuring 3.2 x 3.8 x 4.5 cm. Adjacent more diffuse paraspinal soft tissue enhancement. Appears is concerning scott infected postoperative fluid collection. 2. At L5-S1, mild residual circumferential disc bulging without displacement or impingement of traversing S1 nerve roots. Presumed postoperative epidural enhancement circumferential to the traversing S1 nerve roots, right greater than left. 3. Moderate bilateral L5-S1 neural foraminal stenosis without deformity of the exiting nerve roots, stable. 4. Unchanged mild lumbar disc degeneration at L4-5 without central canal stenosis. Stable mild bilateral L4-5 neural foraminal stenosis. CURRENT ANTIMICROBIALS IV Unasyn ALLERGIES Percocet [oxycodone-acetaminophen] Intake/Output Summary (Last 24 hours) at 05/07/16 1352 Last data filed at 05/07/16 1250 Gross per 24 hour Intake 2705 ml Output 0 ml Net 2705 ml Stool Occurrence: 0 occurrence Stool Color: Brown Stool Characteristics: Loose Liquid Stool (ml): 0 ml PHYSICAL EXAM GENERAL APPEARANCE: Awake and alert, NAD. HEENT: Eyes - Normal lids and conjunctivae Oropharynx - Oral mucosa and pharynx normal, MMM NECK: Supple without adenopathy. RESPIRATORY: Lungs rales on LLL CARDIOVASCULAR: S1/S2, RRR, without murmur, peripheral pulses symmetric. GASTROINTESTINAL: Soft, NT, ND, +BS. Without masses. SKIN: Intact, warm, dry. No rashes or lesions. NEUROLOGIC: slightly lethargic today but appropriate EXTREMITIES: No edema or cyanosis, NT. BACK: wound vac lumbar ASSESSMENT 1. Postop wound infection lumbar spine Surface cx with MSSA No bacteremia MRI now with postop fluid collection that extends to laminectomy site with paraspinal enhancement, concerning for deep infection 2. ? Developing pneumonia with rales, cough, and CXR with bibasilar infiltrates PLAN 1. Discussed with neurosurgery, for now plan on IR aspiration and culture of fluid 2. Continue IV Unasyn for MSSA and lung coverage, however not convinced with pneumonia so will likely narrow back to Ancef soon 3. Now with deeper fluid collection on MRI, would presume infection and recommend ongoing IV ABx at discharge Mimi Caicedo PA-C [facility] Infectious Disease [employer] Yasmin Cartagena RN - 05/07/2016 11:12 AM CST 7-1100 care.Situation:76 YO female admitted on 05/01 from [facility] with possible discectomy/lami infection.Code: Full. Labs: wound + for MSSA.PIV:IV Unasyn.Pain: . Neuro:A&O x3 , very anxious this morning,cms at baseline. Cardiac: Blood pressure 109/71, pulse 77, temperature 98.9 ??F (37.2 ??C), resp. rate 16, height 5' 2 (1.575 m), weight 69.4 kg (153 lb), SpO2 93 %. Resp:LS decreased. Crackles in bases, C-xray pneumonia, sat 98% RA. Drains: Wound Vac to lower back wound dressing reinforced.GI/: voiding ok + bs , no bm this shift Diet: reg Skin: Intact, lower back dressing cd&i. Activity: Ambulating with 1 assist & a walker, steady on her feet.Discharge:pending DAIRY CATTLE FARMER Nnamdi Aguilar, PT - 05/07/2016 9:41 AM CST PT Rehabilitation Services Daily Note Diagnosis: Patient admitted to [facility] on 05/01/2016 due to L5- S1 infection and encephalopathy s/p L5-S1 laminectomy and disectomy on 04/22 (performed at [facility]). Refer to Jaimee Assessment, Chart Review, and Past Medical History. ? Social History: Patient had discharged home with support from her son after recent back surgery, wasapparently doing well until 05/01 when she developed sharp increase in low back pain with fever as well. She lives in a private home with her , her son and [id number] with stairs to enter with 1 rail. There are stairs within the home with 1 rail. Patient uses no assistive device at baseline. Patient has been independent with ADLs since her surgery. Patient was seen at bedside for PT treatment session. Patient's son briefly present at the beginningof the session. Patient is functioning as follows: Patient reported feeling lousy, felt it was due to constipation & being bloated. This writereducated patient on importance of mobilizing to stimulate/facilitate GI motility. Bed Mobility: Patient performed sit <> supine with no assist. Patient was able to roll to the left and to the right with no assist. Transfers: Patient performed sit <> stand with SBA. Ambulation: Patient ambulated x 280 feet with a rolling walker with supervision. Flexed forward at waist and at times turns and doesn't have the walker close to her body but did respond well to verbal cues for an upright posture and keep walker close to her body. Exercises: ankle pumps x 20 reps, heel slides in supine x 20 reps, hip abduction and adduction in supine x 20 reps. Education: Patient/family educated on progress toward goals. Assessment/Plan: Patient is mobilizing very well with improved independence and stability with mobility activities. She also has shown improved activity tolerance. Will be appropriate for home with support whenever medically cleared to do so, will continue inpatient PT but no further PT once patient is discharged from the hospital. Patient making progress towards goals and will benefit from continued rehab. There have been 1/6 COMMUNICATIONS REPRESENTATIVE visits. DAIRY C[employer]LE FARMER Daphne Ferguson RN - 05/06/2016 10:53 PM CST Patient admitted with severe back pain and concern for infection at site of recent surgical incision. History of laminectomy and discectomy at [facility] on 04/22. Wound positive for MSSA.On IV antibiotics. Preveena Wound vac in place, changed on day shift by PA..Yellow drainage in tubing.. Dressing at site dry and intact. Some SOB.Increases with exertion.O2 sats 94-98 on RA.Abdomen softly distended BS all 4 quads.Son upset about mother's SOB.Seen by Md today and had CXR.Showed possible infiltrate VS ate lectasis.Encouraging her to use IS .She got angry when I asked her one time to show me how high she was getting.Im tired of you nurses accusing me of lying.I told you I use my IS. .She got up to 500.Seen by RT,Md called re SOB and ordered prednisone and prn ativan.Pt refused prednisone.Son wanted MD to assess pt.Dr Vela came and assessed pt.Ordered simethicone and prn nebs.Came back from MRI at 2250. DAIRY CATTLE FARMER Daphne Ferguson RN - 05/06/2016 10:18 PM CST Went down to MRI at 2130.Had simethicone and IV ativan for comfort.IVF and wound vac disconnected. DAIRY CATTLE FARMER Soo Vela DO - 05/06/2016 8:51 PM CST Cross cover note: Received page from covering RN stating patient c/o SOB and requesting physician assessment. Cross cover physician had previously been contacted and ordered Ativan and prednisone. Chart reviewed. Patient had CXR earlier in the day which showed patchy opacities - PNA vs atelectasis. She is covered with Unasyn for CXR findings and MSSA infection. She is doing IS. Pt does have a h/o smoking but no heart failure. I presented at bedside. She states she feels her abdomen is pushing on her lungs and she might be getting too much fluid. I feel like if I could burp, I would feel better. She has not had much of an appetite at all. She has been constipated, bowel regimen ordered and she has had some small BMs. Patient does appear mildly dyspneic. Heart regular. Fine crackles in bilateral lung bases, no wheezing. Abdomen mildly distended but soft, active bowel sounds in all quadrants, no pain/guarding. - Will D/C prednisone - Start simethicone for gas - PRN duonebs (patient is a long time smoker) - Continue IS, Unasyn - Will decrease IVF slightly - Continue bowel regimen Soo Vela DO Acute Care Medicine DAIRY CATTLE FARMER Anjelica Mann, RN - 05/06/2016 8:11 PM CST Called to room Pt SOB . Sats 96% RA, RR24 and does apear SOB. Denies pain, I feel full like my stomach is pushing on my lungs pasing flatus and BM today. Respiratory therapy assessed and Dr Rabago notified. Pt refused prednisone ordered . Family wants inhouse Dr to assess. Dr Vela paged DAIRY CATTLE FARMER Fortino Martines - 05/06/2016 8:00 PM CST ACM Cross Cover Called for concern of SOB (she is breathing shallow), despite resp therapy there (largely ok) and sat in mid-90s on RA. Will add ativan prn and start short lower dose prednisone (long time smoker and may have some COPD issues). Re- address in AM. Son in room concerned. Fortino Martines MD DAIRY CATTLE FARMER Buzz Cha RD - 05/06/2016 2:36 PM CST Nutrition Assessment Reason for visit:LOS Malnutrition: Currently does not meet malnutrition criteria Nutrition Interventions 1. Meals/Snacks: Continues a regular diet as tolerated. Goal:Intake of greater than 75% of meals Outcome:Likely Met 2. Medical Food Supplements/commercial beverage: Boost Plus BID to assist with protein adequacy. Goal: Intake of greater than 75% supplements Outcome: New start Post op L-5/S-1 laminectomy/discectomy infection. Labs Reviewed: Albumin: 2.9 Nutrition History: Regular diet, good intake. Stable wt per pt. Diet Order: Regular Intake: fair (50-75%) Nutrition Needs: Likely Met Anthropometric Measurements: Height: Height: 5' 2 (157.5 cm) Admission Weight: 69.4 kg (153 lb), Current Weight: 69.4 kg (153 lb) IBW: 50 kg +/- 10%, 139% IBW BMI: 28, BMI Category: Overweight (25-29.9) Weight History: Wt Readings from Last 5 Encounters: 05/01/16 69.4 kg (153 lb) 04/16/16 69.9 kg (154 lb 3.2 oz) 02/23/16 69.3 kg (152 lb 12.8 oz) 09/10/13 73.3 kg (161 lb 8 oz) 09/07/13 73.2 kg (161 lb 6.4 oz) Nutrition Monitoring and Evaluation Food, Nutrient Intakes: Total energy intake Nutrition Focused Physical Findings: Impaired skin integrity Anthropometric Measures: Weight changes Biochemical Data: Following Nutritional Care Level: Low Discharge Goal: Tolerating diet and able to meet approximately 80% of estimated needs with PO. Charisma Cha RD, LD DAIR[employer] C[employer]LE FARMER Edita Camacho MD - 05/06/2016 2:36 PM CST [facility] PROGRESS NOTE Chart reviewed SUBJECTIVE: Having a morning. Increased pain in the back. When infectious disease saw her this morning, she was fairly sedated. In reviewing the MAR, it looked like she had a dose of Flexeril this morning. 3 sons are in the room this afternoon. Son states that she is constipated which the patient confirms and that she has been having very itchy hands secondary to the Percocet. She has no listed drug allergies bythe way. They all relate that they to, developed itchy hands when they take Percocet. OBJECTIVE: Wt Readings from Last 2 Encounters: 05/01/16 69.4 kg (153 lb) 04/16/16 69.9 kg (154 lb 3.2 oz) Temp (24hrs), Av.6 ??F (37 ??C), Min:98.1 ??F (36.7 ??C), Max:98.9 ??F (37.2 ??C) BP (!) 118/94 Pulse 73 Temp 98.7 ??F (37.1 ??C) Resp 18 Ht 5' 2 (1.575 m) Wt 69.4 kg (153 lb) SpO2 98% BMI 27.98 kg/m2 O2 Delivery Source: Room Air O2 LPM: 2.5 LPM No data found. Intake/Output Summary (Last 24 hours) at 05/06/16 1436 Last data filed at 05/06/16 1405 Gross per 24 hour Intake 2036.2 ml Output 600 ml Net 1436.2 ml ; GENERAL APPEARANCE: She is awake and alert and in mild distress, able to sit forward with help. HEENT: MMM, sclera nonicteric RESPIRATORY: Crackles in the right base diminished in the left base otherwise clear no wheezes Back. She has a wound VAC in place in the lumbar region. She has no surrounding erythema. Obviously,I cannot see the wound bed. CARDIOVASCULAR: Regular, no m/r/g GASTROINTESTINAL: Soft, nontender or distended, BS + throughout, no peritoneal signs EXTREMITIES: BELTRAN, No edema : No Larsen NEUROLOGIC:No focal deficits LABS: Recent Labs 05/04/16 0705 05/05/16 0510 05/06/16 0604 CREATININE 0.74 0.72 0.65 CALCIUMSERUM 8.3* 8.2* 8.3* SODIUM 138 138 140 POTASSIUM 3.9 3.9 3.9 CARBONDIOXI 26 28 27 ANIONGAP 6.0 6.0 8.0 GLUCOSE 97 136* 96 PROCEDURES: Wound VAC placement IMAGING: Chest x ray-- FINDINGS: ? The cardiac configuration is stable. The pulmonary vasculature is within normal limits for this portable semiupright AP technique. Patchy opacities are noted within the lung bases consistent with bibasilar consolidation versus atelectasis. No evidence of a pleural effusion or pneumothorax. ?? IMPRESSION IMPRESSION: ?? Patchy bibasilar pulmonary opacities in noted consistent with bibasilar consolidation and/or atelectasis. ASSESSMENT: 76-year-old white female who recently had an L5-S1 discectomy on 04/23/[address] Lucia. Developed a high fever to 102, worsening back pain and worsening pain. She was admitted to the hospital with sepsis and toxic metabolic encephalopathy, both now resolved. Her cultures have grown MSSAand she has been on Ancef. Issue today is worsening respiratory status; chest x-ray obtained and is concerning for developing pneumonia. PLAN: 1. Sepsis: Secondary to postop back surgery infection. Initially febrile but has subsequently been afebrile for the last days. Cultures positive for MSSA and the plan is to continue with the wound VAC for her surgical incision dehiscence. She was on Ancef but then ID is thinking she can change to Keflex, however, now has the increased respiratory issues. Length of therapy per them. She will follow-upin the neurosurgeons office 2 days after discharge, although that is now moving target given the increased back pain. New issue is than helping pneumonia so her antibiotics were changed to Unasyn IV and will hold the po Keflex. 2. Respiratory. Having increased difficulty with her breathing. She is not taking deep breaths secondary to discomfort with her back. She has a long smoking history, 1 pack per day. Chest x-ray is concerning for a right lower lobe developing infiltrate versus atelectasis. She has been using the incentive spirometry and I encouraged her to continue to do that. 3. Pruritus. Apparently has been having difficulty with itching particularly in her hands when she takes the Percocet. Sons are in the room and apparently all of them also have similar issue. Patient was unaware that she had any drug allergies. Will trial some po Dilaudid and see if she tolerates that. 4. Back pain. Secondary to her infection and recent surgery. Neurosurgery is concerned that she's having increased pain today and they would like to repeat an MRI to assess for worsening infection. 5. Constipation. Adding some additional oral medications. Related to the narcotics. 6. Toxic metabolic encephalopathy, now resolved. Undoubtedly secondary to her infection. CODE STATUS: Full GI prophylaxis: None DVT prophylaxis: Heparin Disposition: Anticipated date of discharge 1-2 days, Criteria for discharge is ongoing improvement in infection and pain control Discussed care plan with DAHIANA GIVENS and neurosurgery, patient and family, RN at bedside. Total time 35 minutes Greater than 50% of time on counseling and coordination of care. Edita Camacho MD A Bateman - 05/06/2016 11:52 AM CST Neurosurgery Progress Note S: Ongoing low back pain. Worse with movement. Changing Prevena canister ~1x day. No radicular pain,change in bowel or bladder function, motor/sensory complaints. O: BP (!) 118/94 Pulse 73 Temp 98.7 ??F (37.1 ??C) Resp 18 Ht 5' 2 (1.575 m) Wt 69.4 kg (153 lb) SpO2 98% BMI 27.98 kg/m2 Awake, alert. Looks dyspneic. 5/5 strength throughout. Prevena wound vac in place. Intermittent leak from lower bandage -- re-bandaged today. No erythema. Tenderness right paraspinous muscles in lumbar spine. No obvious midline tenderness. A/P: Surgical wound dehisence with serosang drainage. Cultures growing MSSA. Appreciate ID input. Switched to Keflex today. Prevena working well. Discussed with Dr. Lucia - given ongoing pain, will obtain MRI lumbar spine today. Also discussed with Dr. Camacho and Mimi Caicedo PA-C. Deepali Kline PA-C Pager: DAIRY CATTLE FARMER Fabiana Comer - 05/06/2016 9:54 AM CST Occupational Therapy Attempted to see pt x2 this morning for OT. First attempt pt refusing stating that she was not feeling well and did not want to get up and move. Second attempt pt with . OT will see pt at next scheduled therapy time. Fabiana Comer OTR/L DAIRY CATTLE FARMER Mimi Caicedo PA-C - 05/06/2016 9:51 AM CST INFECTIOUS DISEASE PROGRESS NOTE SUBJECTIVE Remains afebrile. Currently getting dressing changed. Denies SOB but does have mild cough. No ABx AE. OBJECTIVE BP (!) 142/72 Pulse 78 Temp 98.9 ??F (37.2 ??C) Resp 18 Ht 5' 2 (1.575 m) Wt 69.4 kg (153 lb) SpO2 98% BMI 27.98 kg/m2 Temp (24hrs), Av.5 ??F (36.9 ??C), Min:98.1 ??F (36.7 ??C), Max:98.9 ??F (37.2 ??C) MICRO 05/01 wound cx from outside ED: MSSA 05/01 BC x2: NGTD 05/02 BC x2: NGTD CURRENT ANTIMICROBIALS IV Ancef ALLERGIES Review of patient's allergies indicates no known allergies. Intake/Output Summary (Last 24 hours) at 05/06/16 0947 Last data filed at 05/06/16 0845 Gross per 24 hour Intake 1867.2 ml Output 300 ml Net 1567.2 ml Stool Occurrence: 1 occurrence Stool Color: Brown Stool Characteristics: Formed Liquid Stool (ml): 0 ml PHYSICAL EXAM GENERAL APPEARANCE: Awake and alert, NAD. HEENT: Eyes - Normal lids and conjunctivae Oropharynx - Oral mucosa and pharynx normal, MMM NECK: Supple without adenopathy. RESPIRATORY: Lungs rales lower half on R with pt laying on R side CARDIOVASCULAR: S1/S2, RRR, without murmur, peripheral pulses symmetric. GASTROINTESTINAL: Soft, NT, ND, +BS. Without masses. SKIN: Intact, warm, dry. No rashes or lesions. NEUROLOGIC: slightly lethargic today but appropriate EXTREMITIES: No edema or cyanosis, NT. BACK: wound vac lumbar ASSESSMENT Postop wound infection lumbar spine Cx with MSSA No bacteremia No surgery planned PLAN 1. D/c IV Ancef and use PO Keflex for ongoing MSSA coverage with infection superficial 2. Ok with discharge from ID standpoint, orders placed. Will give 10 days of ABx at discharge which will give her total of 2 weeks of treatment. No outpatient ID f/u needed, pt will f/u with neurosurgery. Addn: CXR with possible bibasilar consolidation and MRI spine now ordered. Will change to Unasyn to cover lungs and MSSA pending MRI Mimi Caicedo PA-C [facility] Infectious Disease DAIRY CATTLE FARMER Nnamdi Aguilar, PT - 05/06/2016 9:33 AM CST PT Rehabilitation Services Daily Note Diagnosis: Patient admitted to [facility] on 05/01/2016 due to L5- S1 infection and encephalopathy s/p L5-S1 laminectomy and disectomy on 04/22 (performed at [facility]). Refer to Jaimee Assessment, Chart Review, and Past Medical History. ? Social History: Patient had discharged home with support from her son after recent back surgery, wasapparently doing well until 05/01 when she developed sharp increase in low back pain with fever as well. She lives in a private home with her , her son and [id number] with stairs to enter with 1 rail. There are stairs within the home with 1 rail. Patient uses no assistive device at baseline. Patient has been independent with ADLs since her surgery. Patient was seen at bedside for PT treatment session. Peripheral IV line and wound vac in place. Patient is functioning as follows: Patient was pleasant, alert and oriented x 4. Appeared uncomfortable upon PT arrival, somewhat improved in response to cues for repositioning and improving her back support. Transfers: Patient performed sit <> stand with no assist. Ambulation: Patient ambulated 2 x 150 feet with a rolling walker with supervision. No overt signs ofinstability in R LE noted this session and patient displayed a much more upright posture. Denied SOB. Instructed patient in the following exercises: seated LE exercises -- ankle pumps x 30 reps, LAQs x 15 reps, marching in place x 30 seconds Education: Patient educated on progress toward goals. Assessment/Plan: Patient is mobilizing much more safely and today required assistance only to managethe IV pole and the wound vac bag. Displayed no signs of instability in R LE (previously had issues with it buckling underneath her). Appropriate for home with family support when medically cleared fordischarge. Patient making progress towards goals and will benefit from continued rehab. There have been 1/6 COMMUNICATIONS REPRESENTATIVE visits. Patient not seen this PM as lying down, awaiting MRI. Was mobilizing well this AM with this short story writer, nothing has changed per patient's verbal report in regard to that. Wanted to stay in bed. Hopson RN - 05/06/2016 7:15 AM CST SBAR Patient admitted with severe back pain and concern for infection at site of recent surgical incision. History of laminectomy and discectomy at [facility] on 04/22. Wound positive for MSSA. On IV Ancef to treat. Penvera Wound vac in place, changed at start of shift. Dressing at site dry and intact. Unable to assess incisional site due to wound vac dressing at site. Patient constipated but passing flatus. Tiny hard BM evenings. Abdomen soft and non-tender. Multiple bowel meds given with Dulcolax tabs added this evening. Flexeril given for pain pm's, nothing for pain tonight. Patient hesitant to take narcotics as they make her feel off. Patient ambulating well with walker and SBA. Gait steady. Patient hopeful she canbe discharged to home in the AM. Lives with spouse (who is disabled secondary to leg amputation). Son, scqemhri-[id number] and grandson also live with patient. Son would like to be updated as soon as discharge plans are in place. Shagufta oHpson RN DAIR[employer] CATTLE FARMER Lynette Escobar, MADELYN - 05/05/2016 9:38 PM CST 1900 to 2300: Patient admitted with severe back pain and concern for infection at site of recent surgical incision. History of laminectomy and discectomy at [facility] on 04/22. Wound positive for MSSA. On IV Ancef to treat. Wound vac in place. Dressing at site dry and intact. Unable to assess incisional site due to wound vac dressing at site. Patient constipated but passing flatus. Tiny hard BM this evening. Abdomen soft and non-tender. Multiple bowel meds given with Dulcolax tabs added this evening. Flexeril given for pain. Patient hesitant to take narcotics as they make her feel off. Patient ambulating well with walker and SBA. Gait steady. Patient hopeful she can be discharged to home in the AM. Lives with spouse (who is disabled secondary to leg amputation). Son, [id number]-jcr and grandson also live with patient. Son would like to be updated as soon as discharge plans are in place. Monitoring. Lynette Escobar RN DAIR[employer] C[employer]LE FARMER Molly Gore RN - 05/05/2016 6:36 PM CST Patient resting in bed this evening. Appears comfortable and rates her pain 0 or 1 out of 10. Has declined any pain medication but states she would like to take a muscle relaxant before bed. Up to the bathroom with walker and standby assist to help with equipment. DAIRY CATTLE FARMER Edita Camacho MD - 05/05/2016 5:35 PM CST [facility] PROGRESS NOTE Chart reviewed SUBJECTIVE: Has been struggling with pain control. When I walked in, son and [id number]-pwh are in the room, aswell as the bedside nurse. In addition, the patient has a curling iron in her bed. Patient has been reticent to take pain meds but after conversation with Vivian, her nurse, she is more willing to take it. She has been moving about better. Discharge plan is a little unclear still mostly regarding the wound VAC and how that will be managed. OBJECTIVE: Wt Readings from Last 2 Encounters: 05/01/16 69.4 kg (153 lb) 04/16/16 69.9 kg (154 lb 3.2 oz) Temp (24hrs), Av.3 ??F (36.8 ??C), Min:98 ??F (36.7 ??C), Max:98.6 ??F (37 ??C) BP 140/67 Pulse 78 Temp 98.1 ??F (36.7 ??C) Resp 18 Ht 5' 2 (1.575 m) Wt 69.4 kg (153 lb) SpO2 93% BMI 27.98 kg/m2 O2 Delivery Source: Room Air O2 LPM: 2.5 LPM No data found. Intake/Output Summary (Last 24 hours) at 05/05/16 1735 Last data filed at 05/05/16 1554 Gross per 24 hour Intake 2670.2 ml Output 0 ml Net 2670.2 ml ; GENERAL APPEARANCE: She is awake and alert and in no acute distress, able to sit forward with help. HEENT: MMM, sclera nonicteric RESPIRATORY: CTAB back. She has a wound VAC in place in the lumbar region. She has no surrounding erythema. Obviously,I cannot see the wound bed. CARDIOVASCULAR: RRR, no m/r/g GASTROINTESTINAL: Soft, ND/NT, BS + throughout, no peritoneal signs EXTREMITIES: BELTRAN, No c/c/e : No Larsen NEUROLOGIC:No focal deficits LABS: Recent Labs 05/03/16 0531 05/04/16 0705 05/05/16 0510 CREATININE 0.79 0.74 0.72 CALCIUMSERUM 8.1* 8.3* 8.2* SODIUM 137 138 138 POTASSIUM 4.0 3.9 3.9 CARBONDIOXI 26 26 28 ANIONGAP 5.0 6.0 6.0 GLUCOSE 87 97 136* PROCEDURES: Wound VAC placement IMAGING: Reviewed ASSESSMENT: 76-year-old white female who recently had an L5-S1 discectomy on 04/23/[address] Lucia. Developed a high fever to 102, worsening back pain and worsening pain. She was admitted to the hospital with sepsis and toxic metabolic encephalopathy, both now resolved. Her cultures have grown MSSAand she has been on Ancef. PLAN: 1. Sepsis: Secondary to postop back surgery infection. Initially febrile but has subsequently been afebrile for the last days. Cultures positive for MSSA and the plan is to continue with the wound VAC for her surgical incision dehiscence. We'll continue with Ancef overnight but then ID is thinking shecan change to Keflex. Length of therapy per them. She will follow-up in the neurosurgeons office 2 days after discharge. 2. Back pain. Secondary to her infection and recent surgery. She is doing better today but needs encouragement to take the pain meds regularly. 3. Toxic metabolic encephalopathy, now resolved. Undoubtedly secondary to her infection. CODE STATUS: Full GI prophylaxis: None DVT prophylaxis: Heparin Disposition: Anticipated date of discharge 1-2 days, Criteria for discharge is ongoing improvement in infection and pain control Discussed care plan with DAHIANA Gonzalez, patient and family, RN at bedside. Total time 35 minutes Greater than 50% of time on counseling and coordination of care. Edita Camacho MD DAIRY C[employer]LE FARMER Rolando Valladares MD - 05/05/2016 1:29 PM CST INFECTIOUS DISEASE PROGRESS NOTE SUBJECTIVE Watching TV. No new complaints. OBJECTIVE BP 131/69 Pulse 74 Temp 98.2 ??F (36.8 ??C) Resp 18 Ht 5' 2 (1.575 m) Wt 69.4 kg (153 lb) SpO2 93% BMI 27.98 kg/m2 Temp (24hrs), Av.2 ??F (36.8 ??C), Min:97.9 ??F (36.6 ??C), Max:98.6 ??F (37 ??C) Intake/Output Summary (Last 24 hours) at 05/05/16 1329 Last data filed at 05/05/16 0900 Gross per 24 hour Intake 1677 ml Output 0 ml Net 1677 ml Stool Occurrence: 0 occurrence Stool Color: (not recorded) Stool Characteristics: (not recorded) Liquid Stool (ml): 0 ml CURRENT MEDS Current Facility-Administered Medications Medication Dose Route Frequency Provider Last Rate Last Dose ??? saline FLUSH syringe 5 mL 5 mL Intravenous Q8H Janene Urrutia MD Stopped at 05/04/16 0600 ??? saline FLUSH syringe 5 mL 5 mL Intravenous PRN Janene Urrutia MD 5 mL at 05/04/16 1027 ??? acetaminophen (TYLENOL) tablet 325-650 mg 1-2 tablet oral Q4H PRN Janene Urrutia MD 650 mg at 05/03/16 0548 ??? bisacodyl (DULCOLAX) delayed released tablet 5-15 mg 5-15 mg oral DAILY PRN Janene Urrutia MD 10mg at 05/04/16 0518 ??? ceFAZolin ( ANCEF) 2 g in iso-osmotic dextrose 50 mL IV piggyback 2 g Intravenous Q8H (NS) Mimi Caicedo PA-C 2 g at 05/05/16 0853 ??? cyclobenzaprine (FLEXERIL) tablet 5 mg 5 mg oral Q8H PRN Krystle Cummings PA-C 5 mg at 05/05/16 0814 ??? heparin injection 5,000 Units 5,000 Units Subcutaneous Q8H Janene Urrutia MD 5,000 Units at 05/05/16 0623 ??? HYDROmorphone (DILAUDID) syringe 0.5-1 mg 0.5-1 mg Intravenous Q4H PRN Janene Urrutia MD 0.25 mgat 05/01/162010 ??? influenza vaccine [id number] HIGH DOSE (65 years and older) (PF) (FLUZONE HIGH DOSE) 0.5 mL 0.5 mL IntraMUSCULAR ONCE - TOMORROW Daisy Mata, RN 0.5 mL at 05/03/16 0800 ??? lidocaine 1% (XYLOCAINE) injection 0.1-0.3 mL 0.1-0.3 mL Intradermal PRN Janene Urrutia MD 0.2 mL at 05/04/16 1026 ??? lidocaine 1% / 8.4% sod bicarb (buffered lidocaine) syringe for IV starts 0.1-0.3 mL 0.1-0.3 mL Intradermal PRN Janene Urrutia MD ??? magnesium hydroxide (MILK OF MAGNESIA) suspension 30 mL 30 mL oral DAILY PRN Janene Urrutia MD 30 mL at 05/05/16 1256 ??? ondansetron (ZOFRAN) injection 4-8 mg 4-8 mg Intravenous Q8H PRN Janene Urrutia MD 4 mg at 05/04/16 0330 Or ??? ondansetron (ZOFRAN) disintegrating tablet 4-8 mg 4-8 mg oral Q8H PRN Janene Urrutia MD 8 mg at 05/04/16 1924 ??? oxyCODONE-acetaminophen (PERCOCET) tablet 1-2 tablet 1-2 tablet oral Q4H PRN Janene Urrutia MD 2tablet at 05/05/16 0954 ??? polyethylene glycol (MIRALAX) packet 17 g 17 g oral DAILY PRN Janene Urrutia MD 17 g at [id number] ??? senna (SENOKOT) tablet 1-2 tablet 1-2 tablet oral Twice Daily Janene Urrutia MD 2 tablet at 05/05/16 0813 ??? sodium chloride 0.9 % IV solution Intravenous CONTINUOUS [place], Krystle E, PA-C 100 mL/hr at107/06/15 0334 100 mL/hr at 05/05/16 0334 ??? sodium phosphates (FLEET) rectal enema 1 enema 1 enema Rectal DAILY PRN Janene Urrutia MD 1 enema at 05/05/16 0956 ALLERGIES No Known Allergies GENERAL APPEARANCE: She is awake and alert and in no acute distress. Mild sedation. HEENT: NC AT Oropharynx - Oral mucosa and pharnyx normal, moist mucous membranes. NECK: Supple with no adenopathy. RESPIRATORY: Lungs clear to auscultation bilaterally. CARDIOVASCULAR: Normal S1, normal S2, regular rhythmn, without murmur. GASTROINTESTINAL: Soft, non-tender, normal bowel sounds. No masses. HEME/LYMPH/IMMUNOLOGIC: No unusual bleeding or bruising SKIN: wound vac on lower back wound NEUROLOGIC: alert and oriented, moves all extremities EXTREMITIES: No edema or cyanosis. Results for orders placed or performed during the hospital encounter of 05/01/16 (from the past 24 hour(s)) Basic Metabolic Profile Result Value Ref Range SODIUM 138 136 - 145 mMol/L POTASSIUM 3.9 3.5 - 5.1 mMol/L CHLORIDE 104 98 - 112 mMol/L CARBON DIOXIDE 28 21 - 32 mMol/L BUN (UREA NITRO) 9 7 - 24 mg/dL CREATININE 0.72 0.55 - 1.02 mg/dL EST GFR (MDRD) >60 >60 mL/min EST GFR IF AM >60 >60 mL/min GLUCOSE 136 (H) 74 - 106 mg/dL CALCIUM, SERUM 8.2 (L) 8.5 - 10.1 mg/dL ANION GAP 6.0 0.0 - 15.0 mMol/L Additional comments: I reviewed the patient's new clinical lab test results. ASSESSMENT Principal Problem: Staphylococcal infection Active Problems: Post-operative infection Sepsis (HCC) Encephalopathy Comments: MSSA wound infection w dehiscence after previous lumbar surgery PLAN 1. No active infection, stable on ancef Ok to change to Keflex 500 TID for additional 10 days when ready for discharge Disposition under investigation 2. Pain as per Hospitalist and Neurosurgery svc Defer further imaging to other providers Discussed w Dr. Camacho Time: 15 minutes with greater than 50% of time spent with coordination of care and counseling Rolando Valladares MD [employer] Lucía Hopson RN - 05/05/2016 7:20 AM CST SBAR Pt had L5-S1 Lami and discectomy at [facility] on 04/22. She was recovering at home when she developed severe pain and drainage at incision site. Pt has Prevena wound vac in place. The cannister is quite small and had to be changed evenings as well as this am. (You have to call surgery if we need another one.) I have one for you, it is on her chart. Wound culture growing MSSA- on IV ancef and I/D following. Blood culture negative to date. Voiding well. C/o constipation- given MOM with no result. IVF@100. Takes percocet prn for pain, had 1 tonight. Drinking fluids with encouragement. LS crackles in bases- given IS which she can use to 1000. Uses c all light. Expresses needs. Repositioning self in bed. Up with SBA/walker. FYI: RR called on her son who was visiting [facility] due to chest pain and slurred speech- had some workup in ED pm shift Shagufta Hopson RN [employer] Janene Urrutia MD - 05/04/2016 11:38 PM CST [facility] PROGRESS NOTE Chart reviewed SUBJECTIVE: Awake, alert today. Pain back improving. No dyspnea, cough, dysuria, diarrhea. Continues to feel better. OBJECTIVE: Wt Readings from Last 2 Encounters: 05/01/16 69.4 kg (153 lb) 04/16/16 69.9 kg (154 lb 3.2 oz) Temp (24hrs), Av.2 ??F (36.8 ??C), Min:97.8 ??F (36.6 ??C), Max:99.5 ??F (37.5 ??C) BP (!) 143/71 Pulse 72 Temp 98 ??F (36.7 ??C) Resp 16 Ht 5' 2 (1.575 m) Wt 69.4 kg (153 lb) SpO2 91% BMI 27.98 kg/m2 O2 Delivery Source: Room Air O2 LPM: 2.5 LPM No data found. Intake/Output Summary (Last 24 hours) at 05/04/16 2338 Last data filed at 05/04/16 2209 Gross per 24 hour Intake 3115 ml Output 0 ml Net 3115 ml ; GENERAL APPEARANCE: She is awake and alert and in no acute distress. HEENT: MMM RESPIRATORY: CTAB CARDIOVASCULAR: RRR, no m/r/g GASTROINTESTINAL: Soft, ND/NT, BS + EXTREMITIES: BELTRAN, No c/c/e NEUROLOGIC:No focal deficits LABS: Recent Labs 05/02/16 0533 05/03/16 0531 05/04/16 0705 CREATININE 0.91 0.79 0.74 CALCIUMSERUM 8.2* 8.1* 8.3* SODIUM 139 137 138 POTASSIUM 4.0 4.0 3.9 CARBONDIOXI 28 26 26 ANIONGAP 5.0 5.0 6.0 WBC 9.2 -- -- HEMOGLOBIN 11.1* -- -- HEMATOCRIT 35.3* -- -- PLATELETCT 187 -- -- GLUCOSE 95 87 97 ASSESSMENT: Jennifer Cole is a 76 y.o. female with a past medical history significant for lumbardisc herniation s/p recent L5-S1 discectomy and tobacco dependence who initially presented to [facility] emergency department after having worsening back pain and increased drainage from her surgical incision site. She is a direct admission from [facility] for treatment and evaluation of post-op infection and possible sepsis. PLAN: ?? Post-operative L5-S1 discectomy infection with drainage at incision site: Patient is [id number] that occurred at [facility] on 2016. Patient with increased pain, fevers, and leukocytosis (WBC of 15.6 at [place]). Pain management with dilaudid. Wound culture growing MSSA. Blood cultures negative. Initially started on vanc and zosyn, changed to ancef. ID and neurosurgery following. Wound vac placed. ?? Sepsis: with fever, tachy, leukocytosis, secondary to post-op infection. Treat infection as above. Patient fever free for more than 24 hours. ?? Encephalopathy: Initially very lethargic- septic encephalopathy given current infection or vs secondary to narcotics. Much improved. GI prophylaxis: none DVT prophylaxis: sc heparin Disposition: Anticipated date of discharge 1-2 days Criteria for discharge is ID antibiotic plan, pain control, clearance by neurosurgery. Discussed care plan with patient. Janene Urrutia MD [employer] Sandra Quinones RN - 05/04/2016 7:34 PM CST Patients son approached me and was very upset that he has not gotten any answers to what is going onwith his mother. He asked to speak with a MD immediatly. He wanted to know the results from infections disease and why she was possibly being discharged on Friday. I paged ID and they did not call back. I paged out ACM as they had not left a note for the day as to what the POC was. Family stated if they did not get answers they would like to speak with management. [employer] Rolando Valladares MD - 05/04/2016 4:01 PM CST INFECTIOUS DISEASE PROGRESS NOTE SUBJECTIVE Sitting up, feels better. OBJECTIVE BP (!) 137/94 Pulse 78 Temp 98 ??F (36.7 ??C) Resp 17 Ht 5' 2 (1.575 m) Wt 69.4 kg (153 lb) SpO2 93% BMI 27.98 kg/m2 Temp (24hrs), Av.3 ??F (36.8 ??C), Min:97.8 ??F (36.6 ??C), Max:99.5 ??F (37.5 ??C) Intake/Output Summary (Last 24 hours) at 05/04/16 1602 Last data filed at 05/04/16 1522 Gross per 24 hour Intake 2892 ml Output 0 ml Net 2892 ml Stool Occurrence: 0 occurrence Stool Color: (not recorded) Stool Characteristics: (not recorded) Liquid Stool (ml): 0 ml CURRENT MEDS Current Facility-Administered Medications Medication Dose Route Frequency Provider Last Rate Last Dose ??? saline FLUSH syringe 5 mL 5 mL Intravenous Q8H Janene Urrutia MD Stopped at 05/04/16 0600 ??? saline FLUSH syringe 5 mL 5 mL Intravenous PRN Janene Urrutia MD 5 mL at 05/04/16 1027 ??? acetaminophen (TYLENOL) tablet 325-650 mg 1-2 tablet oral Q4H PRN Janene Urrutia MD 650 mg at 05/03/16 0548 ??? bisacodyl (DULCOLAX) delayed released tablet 5-15 mg 5-15 mg oral DAILY PRN Janene Urrutia MD 10mg at 05/04/16 0518 ??? ceFAZolin ( ANCEF) 2 g in iso-osmotic dextrose 50 mL IV piggyback 2 g Intravenous Q8H (NS) Mimi Caicedo PA-C 2 g at 05/04/16 0824 ??? cyclobenzaprine (FLEXERIL) tablet 5 mg 5 mg oral Q8H PRN Krystle Cummings PA-C 5 mg at 05/02/16 1546 ??? heparin injection 5,000 Units 5,000 Units Subcutaneous Q8H Janene Urrutia MD 5,000 Units at 05/04/16 1319 ??? HYDROmorphone (DILAUDID) syringe 0.5-1 mg 0.5-1 mg Intravenous Q4H PRN Janene Urrutia MD 0.25 mgat 05/01/162010 ??? influenza vaccine [id number] HIGH DOSE (65 years and older) (PF) (FLUZONE HIGH DOSE) 0.5 mL 0.5 mL IntraMUSCULAR ONCE - TOMORROW Daisy Mata, MADELYN 0.5 mL at 05/03/16 0800 ??? lidocaine 1% (XYLOCAINE) injection 0.1-0.3 mL 0.1-0.3 mL Intradermal PRN Janene Urrutia MD 0.2 mL at 05/04/16 1026 ??? lidocaine 1% / 8.4% sod bicarb (buffered lidocaine) syringe for IV starts 0.1-0.3 mL 0.1-0.3 mL Intradermal PRN Janene Urrutia MD ??? magnesium hydroxide (MILK OF MAGNESIA) suspension 30 mL 30 mL oral DAILY PRN Janene Urrutia MD 30 mL at 05/04/16 0824 ??? ondansetron (ZOFRAN) injection 4-8 mg 4-8 mg Intravenous Q8H PRN Janene Urrutia MD 4 mg at 05/04/16 0330 Or ??? ondansetron (ZOFRAN) disintegrating tablet 4-8 mg 4-8 mg oral Q8H PRN Janene Urrutia MD 4 mg at 05/02/16 1210 ??? oxyCODONE-acetaminophen (PERCOCET) tablet 1-2 tablet 1-2 tablet oral Q4H PRN Janene Urrutia MD 2tablet at 05/04/16 1029 ??? polyethylene glycol (MIRALAX) packet 17 g 17 g oral DAILY PRN Janene Urrutia MD ??? senna (SENOKOT) tablet 1-2 tablet 1-2 tablet oral Twice Daily Janene Urrutia MD 1 tablet at 05/03/16 2018 ??? sodium chloride 0.9 % IV solution Intravenous CONTINUOUS Krystle Cummings PA-C 100 mL/hr at107/05/15 1100 100 mL/hr at 05/04/16 1100 ??? sodium phosphates (FLEET) rectal enema 1 enema 1 enema Rectal DAILY PRN Janene Urrutia MD ALLERGIES No Known Allergies GENERAL APPEARANCE: She is awake and alert and in no acute distress. HEENT: Head - Normocephalic, atraumatic Eyes - Normal lids and conjuntivae, PERRLA, EOMs intact Ears - External normal Nose - No deformity, without masses, no congestion Oropharynx - Oral mucosa and pharnyx normal, moist mucous membranes. NECK: Supple with no adenopathy. RESPIRATORY: Lungs clear to auscultation bilaterally. CARDIOVASCULAR: Normal S1, normal S2, regular rhythmn, without murmur. GASTROINTESTINAL: Soft, non-tender, normal bowel sounds. No masses. HEME/LYMPH/IMMUNOLOGIC: No unusual bleeding or bruising SKIN: wound vac on lower back wound NEUROLOGIC: alert and oriented, moves all extremities EXTREMITIES: No edema or cyanosis. : Larsen present. Results for orders placed or performed during the hospital encounter of 05/01/16 (from the past 24 hour(s)) Basic Metabolic Profile Result Value Ref Range SODIUM 138 136 - 145 mMol/L POTASSIUM 3.9 3.5 - 5.1 mMol/L CHLORIDE 106 98 - 112 mMol/L CARBON DIOXIDE 26 21 - 32 mMol/L BUN (UREA NITRO) 10 7 - 24 mg/dL CREATININE 0.74 0.55 - 1.02 mg/dL EST GFR (MDRD) >60 >60 mL/min EST GFR IF AM >60 >60 mL/min GLUCOSE 97 74 - 106 mg/dL CALCIUM, SERUM 8.3 (L) 8.5 - 10.1 mg/dL ANION GAP 6.0 0.0 - 15.0 mMol/L Additional comments: I reviewed the patient's new clinical lab test results. ASSESSMENT Principal Problem: Staphylococcal infection Active Problems: Post-operative infection Sepsis (HCC) Encephalopathy Comments: MSSA wound infection w dehiscence s/p lumbar surgery PLAN 1. Stable on ancef 2. Follow wound -> ?need for placement? Time: 25 minutes with greater than 50% of time spent with coordination of care and counseling Rolando Valladares MD [employer] Danii Lucia MD - 05/04/2016 3:52 PM CST Feeling better Up and walking some Drain working well Incision dressed and dry with no erythema or swelling -therapies, increase acticvity -likely discharge tomorrow and follow up in clinic on Friday Danii Lucia [employer] Marlena Millan RN - 05/04/2016 2:29 PM CST SBAR Pt had L5-S1 Lami and discectomy at [facility] on 04/22. She was recovering at home when she developed severe pain and drainage at incision site. Pt has Prevena wound vac in place. The cannister is quite small and had to be changed evenings as well as this am. ( You have to call surgery if we need another one.) The paperwork is on the front of the chart in case you forget the name. Wound culture growing MSSA- on IV ancef and I/D following. Blood culture negative to date. Voiding well. C/o constipation- given MOM with no result. IV replaced- IVF@100. Takes percocet prn for pain. Intermittent nausea and report little to no appetite. Drinking fluids with encouragement. LS crackles in bases- given IS whichshe can use to 1000. Uses call light. Expresses needs. Repositioning self in bed. Up with SBA/walker. MARLENA MILLAN RN [employer] Lucía Hopson RN - 05/04/2016 6:54 AM CST SBAR Pt admitted from [facility] Pt had L5-S1 Lami and discectomy at [facility] on 04/22. She was recovering at home when she developed severe pain and drainage at incision site. Pt has Prevena wound vac in place. The cannister is quite small and had to be changed evenings as well as this am. ( You have to call surgery if we need anotherone.) The paperwork is on the front of the chart in case you forget the name. Tubed up from Surgery.Wound vac was leaking air, draping was ordered and applied to stop leak, supplies in room. Back vac is CDI. She likes to change position frequently. Up with assist of 1 to the bathroom. X 5 tonight. IVF 100/hr. Dulcolax tabs x 2 at 0520 per constipation. LBM 04/30. No surgery at this time per Neurosurgery. Shagufta Hopson RN [employer] Janene Urrutia MD - 05/03/2016 11:02 PM CST [facility] PROGRESS NOTE Chart reviewed SUBJECTIVE: Awake, alert today. Pain back improving. No dyspnea, cough, dysuria, diarrhea. Feels better. OBJECTIVE: Wt Readings from Last 2 Encounters: 05/01/16 69.4 kg (153 lb) 04/16/16 69.9 kg (154 lb 3.2 oz) Temp (24hrs), Av.3 ??F (36.8 ??C), Min:98.1 ??F (36.7 ??C), Max:98.5 ??F (36.9 ??C) BP 123/63 Pulse 76 Temp 98.3 ??F (36.8 ??C) Resp 18 Ht 5' 2 (1.575 m) Wt 69.4 kg (153 lb) SpO2 91% BMI 27.98 kg/m2 O2 Delivery Source: Room Air O2 LPM: 2.5 LPM No data found. Intake/Output Summary (Last 24 hours) at 05/03/16 2302 Last data filed at 05/03/16 1700 Gross per 24 hour Intake 1681 ml Output 950 ml Net 731 ml ; GENERAL APPEARANCE: She is awake and alert and in no acute distress. HEENT: MMM RESPIRATORY: CTAB CARDIOVASCULAR: RRR, no m/r/g GASTROINTESTINAL: Soft, ND/NT, BS + EXTREMITIES: BELTRAN, No c/c/e NEUROLOGIC:No focal deficits LABS: Recent Labs 05/02/16 0533 05/03/16 0531 CREATININE 0.91 0.79 CALCIUMSERUM 8.2* 8.1* SODIUM 139 137 POTASSIUM 4.0 4.0 CARBONDIOXI 28 26 ANIONGAP 5.0 5.0 WBC 9.2 -- HEMOGLOBIN 11.1* -- HEMATOCRIT 35.3* -- PLATELETCT 187 -- GLUCOSE 95 87 ASSESSMENT: Jennifer Cole is a 76 y.o. female with a past medical history significant for lumbardisc herniation s/p recent L5-S1 discectomy and tobacco dependence who initially presented to [facility] emergency department after having worsening back pain and increased drainage from her surgical incision site. She is a direct admission from [facility] for treatment and evaluation of post-op infection and possible sepsis. PLAN: ?? Post-operative L5-S1 discectomy infection with drainage at incision site: Patient is [id number] that occurred at [facility] on 2016. Patient with increased pain, fevers, and leukocytosis (WBC of 15.6 at [place]). Zosyn and Vancomycin have been initiated, continue. CBC and BMP in the morning. Pain management with dilaudid. Wound culture growing MSSA. Blood cultures pending. On vanc and zosyn, changed to ancef. ID and neurosurgery following. ?? Sepsis: with fever, tachy, leukocytosis, secondary to post-op infection. Will order chest x-ray to rule out pulmonary infection. Patient with fever, however vital signs stable. Lactic acid pending. Treat infection as above, rehydrate. ?? Encephalopathy: septic encephalopathy given current infection or dilaudid administration vs secondary to narcotics. Monitor, rehydrate, expect to improve as infection is addressed and patient requires less pain medications. Improving. GI prophylaxis: none DVT prophylaxis: sc heparin Disposition: Anticipated date of discharge 1-2 days Criteria for discharge is ID work up, antibiotic plan, pain control. Discussed care plan with patient. Janene Urrutia MD [employer] Mimi Caicedo PA-C - 05/03/2016 4:16 PM CST INFECTIOUS DISEASE PROGRESS NOTE SUBJECTIVE Only complaint is back pain. Temp of 102 overnight OBJECTIVE BP 137/69 Pulse 73 Temp 98.5 ??F (36.9 ??C) Resp 18 Ht 5' 2 (1.575 m) Wt 69.4 kg (153 lb) SpO2 94% BMI 27.98 kg/m2 Temp (24hrs), Av.4 ??F (37.4 ??C), Min:98.1 ??F (36.7 ??C), Max:102.2 ??F (39 ??C) MICRO 05/01 wound cx from outside ED: MSSA 05/01 BC x2: NGTD 05/02 x2: NGTD CURRENT ANTIMICROBIALS IV Vanco, Zosyn ALLERGIES Review of patient's allergies indicates no known allergies. Intake/Output Summary (Last 24 hours) at 05/03/16 1616 Last data filed at 05/03/16 1500 Gross per 24 hour Intake 3130 ml Output 1400 ml Net 1730 ml Stool Occurrence: 0 occurrence Stool Color: (not recorded) Stool Characteristics: (not recorded) Liquid Stool (ml): 0 ml PHYSICAL EXAM GENERAL APPEARANCE: Awake and alert, NAD. HEENT: Eyes - Normal lids and conjunctivae, PERRL Oropharynx - Oral mucosa and pharynx normal, MMM NECK: Supple without adenopathy. RESPIRATORY: Lungs CTAB CARDIOVASCULAR: S1/S2, RRR, without murmur, peripheral pulses symmetric. GASTROINTESTINAL: Soft, NT, ND, +BS. Without masses. SKIN: Intact, warm, dry. No rashes or lesions. NEUROLOGIC: Alert and oriented, moves all extremities EXTREMITIES: No edema or cyanosis, NT. BACK: wound vac lumbar ASSESSMENT Postop wound infection lumbar spine Cx with MSSA No bacteremia No surgery planned PLAN 1. D/c IV Vanco and Zosyn and use IV Ancef for ongoing MSSA coverage 2. Would like to see pt afebrile prior to changing to PO ABx and discharging (? Tomorrow) Mimi Caicedo PA-C [facility] Infectious Disease DA[employer]ER Lashon Arana RN - 05/03/2016 3:10 PM CST SBAR Pt admitted from [facility]. Pt had L5-S1 Lami and discectomy at [facility] on 04/22. She was recovering at home when she developed severe pain and drainage at incision site. Pt has Prevena wound vac in place. The cannister is quite small and had to be changed this morning. Extra cannister in room. You have to call surgery if we need another one. Back vac is CDI. Pt taking percocet for pain with moderate relief. She likes to change position frequently. Up with assist of 1 to the bathroom.IV is at 100/hr. Good po intake. No surgery at this time per Neurosurgery. DA[employer]ER Kwaku Naranjo PA-C - 05/03/2016 10:38 AM CST Neurosurgery Progress Note HD # 3 Chief complaint: None Interval: Comfortably lying in bed. Prevena in place. Turned off overnight as she was having troublesleeping. Patient Vitals for the past 6 hrs: BP Temp Pulse Resp SpO2 05/03/16 0750 135/73 98.1 ??F (36.7 ??C) 86 18 94 % Allergies: Review of patient's allergies indicates no known allergies. Neurological: Higher integrative functions: Oriented to person, place and time Memory: Good Recent and remote events Attention Span and Concentration: Good Language: clear Fund of Knowledge: good CN II-XII: PERRLA, conjugate gaze, face symmetrical Sensation: No decrease in sensation in upper or lower limbs to touch Myotatic Reflexes: 2/4 throughout Motor: 5/5 throughout. Wound: Clean and Dry. Prevena vac in place and operating normaly. Serosang drainage in vac. Labs: SODIUM Date Value Ref Range Status 05/03/2016 137 136 - 145 mMol/L Final 08/11/2013 141.0 133.0 - 144.0 mmo/L Final WBC Date Value Ref Range Status 05/02/2016 9.2 4.3 - 10.8 K/uL Final WHITE BLOOD CT Date Value Ref Range Status 05/31/2009 9.5 4.3 - 10.8 K/uL Final RBC Date Value Ref Range Status 05/02/2016 3.60 4.20 - 5.40 M/uL Final HEMOGLOBIN Date Value Ref Range Status 05/02/2016 11.1 12.0 - 16.0 gm/dL Final Imaging: No new imaging Impression/Plan: 76 yo female with surgical wound dehiscence and serosang drainage. Does not look overtly infected. Prevena in place and operating normally. Still no surgical plans. Continue abx. Will discuss with Dr. Lucia. DVT PPX: mendoza Naranjo PA-C Pager: [phone] [employer] Al Morocho PT - 05/03/2016 9:28 AM CST PT Rehabilitation Services Daily Note Diagnosis: Patient admitted to [facility] on 05/01/2016 due to L5- S1 infection and encephalopathy s/p L5-S1 laminectomy and disectomy on 04/22 (performed at [facility]). Refer to Jaimee Assessment, Chart Review, and Past Medical History. ? Social History: Patient had discharged home with support from her son after recent back surgery, wasapparently doing well until 05/01 when she developed sharp increase in low back pain with fever as well. She lives in a private home with her , her son and [id number] with stairs to enter with 1 rail. There are stairs within the home with 1 rail. Patient uses no assistive device at baseline. Patient has been independent with ADLs since her surgery. Patient seen in room for treatment session. 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 She stated that she does not need PT, and will be fine at home as she has 5 people to help her. She was educated on need for PT to progress functional mobility and regain independence, though was resistant to any of this. She then stated she needed to use the bathroom. Bed mobility: supine<>sitting with supervision. Transfers: patient transferred from sit<>stand with CGA Gait: patient ambulated 2 x 6 feet with FWW and minimal assistance. Quite unstable and almost ataxicmovement at times. Assessment/Plan: Patient unwilling to fully participate in therapy. She continues to be very unsteady when up and ambulating. Would recommend TCU at discharge if she was to discharge within next 1-2 days. Patient making progress towards goals and will benefit from continued rehab. There have been 0/6 COMMUNICATIONS REPRESENTATIVE visits. DA[employer]ER Manuela Tamayo, Pharm D - 05/03/2016 8:03 AM CST Pharmacy Kinetics Consult Jennifer Cole, 05/03/2016, Time: 8:03 AM SUBJECTIVE Jennifer Cole is a 76 y.o. female who was admitted on 05/01/2016. Pharmacy was consulted by Dr. Urrutia to dose and monitor Vancomycin for a post-op wound infection. OBJECTIVE Antibiotic Allergies: NKDA Current/Recent Antibiotics: - Zosyn 3.375 g IV q8h (05/01 - ) Cultures and Sensitivities: - 05/01 Blood x 2: in process Vitals: Temp (24hrs), Av.7 ??F, Min:98.1 ??F, Max:102.2 ??F Height: 157.5 cm (5' 2) Weight: 69.4 kg (153 lb) LBW: 50 kg CBW: NA Labs: Recent Labs 05/02/16 0533 05/03/16 0531 WBC 9.2 -- CREATININE 0.91 0.79 Date Day Scr CrCL Dose/Freq Time Level Comments 05/01 1 0.76 ~50 1250 mg x1 1117 [facility] 12/1 2 0.91 ~48 1250 mg q24h 0600 05/03 3 0.79 ~55 1250mg q 24h 0600 05/04 4 Tr@0530 ASSESSMENT/PLAN 76 YO F admitted with post op infection from [place]. Given 1250mg vanco prior to transfer. Continued on q 24 hour dosing here given current renal function. RENAL: SCr 0.79 - stable. Good UOP based on some volumes and number of voids charted. Vancomycin 1250 mg x1 at [facility] prior to admission 05/01. Dose: Vancomycin 1250 mg IV every 24 hours Vancomycin goal trough: 10-15 mcg/mL Next vancomycin level due: Trough 05/04/16 @0530 Pharmacy will continue to follow. Please call with questions. Manuela Tamayo, Pharm D, [facility] Phone #: [phone] Chino RN - 05/03/2016 1:23 AM CST 05/03/16: 0123 Advertising Director met pt in bed resting. Wound Vac intact but beeping intermittently. Per cushion builder manual, canister should be changed. Advertising Director called and spoke with Bradley Carlos in Neurosurgery. Wound Vac turned off per advise by Terrance. Pt alert and oriented x 3. Fajardo RN - 05/02/2016 11:49 PM CST 2100 , d/t t frequent movement provena wound vac fell to floor and since then its Making frequent peeping noise and 1 steady light on ,tube checked for Kinks, leakage, fullness , turned on and off . Will continue to monitor. Fajardo RN - 05/02/2016 11:18 PM CST Alert and drowsy on and off, with decreased attains and focus , gets restless ,Here with infection to surgical incision following Discectomy /Lami Surgery at [facility] Afebrile , on IV antibiotics,unable to attain good position in bed . Pain 4/10 Percocet 1 given with Flexeril 5 mg . Up to chairwith 2 assist . LS decreased. Coarse in bases, C-xray pneumonia,on 2LNC sat 94%. Dressing to lower back c/d/i . PREVENA Wound Vac to lower set at 125 mmhg . Denies nausea and vomiting ,Ate all her supper and encouraged to drinking fluids . IV running at 100 ml/hr .Assisted to bedside commode voiding ok 300 this shift, + bs , no bm this shift . Weakness, needs assist of to Ambulating & a walker, very unsteady on her feet.Blood pressure 119/59, pulse 98, temperature (!) 100.6 ??F (38.1 ??C), resp.rate 16, height 5' 2 (1.575 m), weight 69.4 kg (153 lb), SpO2 97 %. 2000, Temp 102.1 , Tylenol given recheck 100.6, BP left 145/66 on rt arm 82/49. Discharge:pending DAIRY CATTLE FARMER Yasmin Cartagena RN - 05/02/2016 3:31 PM CST Situation:76 YO female admitted on 05/01 from [facility] with possible discectomy/lamiinfection.Code: Full. Labs: + blood cx MD notified.PIV:IV Vanco & Zosyn.Pain: very reluctant to pain meds. Neuro:A&O & drowsy* impulsive at times,cms at baseline. Cardiac: Blood pressure 121/67, pulse 78, temperature 98.2 ??F (36.8 ??C), resp. rate 16, height 5' 2 (1.575 m), weight 69.4 kg (153 lb), SpO2 98 %..Resp: no concerns, LS decreased. Coarse in bases, C-xray pneumonia, desat on RA, 2 LNC sat 98%. Drains: Wound Vac to lower back wound intact.GI/: voiding ok 400 cc this shift, +bs , no bm this shift Diet: reg Skin: Intact, lower back dressing cd&i. Activity: Ambulating with 2 assist & a walker, very unsteady on her feet.Discharge:pending DAIRY CATTLE FARMER Janene Urrutia MD - 05/02/2016 2:49 PM CST [facility] PROGRESS NOTE Chart reviewed SUBJECTIVE: More awake, alert today. Pain somewhat better. No dyspnea, cough, dysuria, diarrhea. OBJECTIVE: Wt Readings from Last 2 Encounters: 05/01/16 69.4 kg (153 lb) 04/16/16 69.9 kg (154 lb 3.2 oz) Temp (24hrs), Av.6 ??F (37.6 ??C), Min:98.2 ??F (36.8 ??C), Max:100.6 ??F (38.1 ??C) BP 119/59 Pulse 98 Temp (!) 100.6 ??F (38.1 ??C) Resp 16 Ht 5' 2 (1.575 m) Wt 69.4 kg (153 lb) [id number]% BMI 27.98 kg/m2 O2 Delivery Source: Nasal Cannula O2 LPM: 2.5 LPM Patient Vitals for the past 48 hrs: Weight 05/01/16 1610 69.4 kg (153 lb) Intake/Output Summary (Last 24 hours) at 05/02/16 1449 Last data filed at 05/02/16 1341 Gross per 24 hour Intake 3655.33 ml Output 900 ml Net 2755.33 ml ; GENERAL APPEARANCE: She is awake and alert and in no acute distress. HEENT: MMM RESPIRATORY: CTAB CARDIOVASCULAR: RRR, no m/r/g GASTROINTESTINAL: Soft, ND/NT, BS + EXTREMITIES: BELTRAN, No c/c/e NEUROLOGIC:No focal deficits LABS: Recent Labs 05/02/16 0533 CREATININE 0.91 CALCIUMSERUM 8.2* SODIUM 139 POTASSIUM 4.0 CARBONDIOXI 28 ANIONGAP 5.0 WBC 9.2 HEMOGLOBIN 11.1* HEMATOCRIT 35.3* PLATELETCT 187 GLUCOSE 95 ASSESSMENT: Jennifer Cole is a 76 y.o. female with a past medical history significant for lumbardisc herniation s/p recent L5-S1 discectomy and tobacco dependence who initially presented to [facility] emergency department after having worsening back pain and increased drainage from her surgical incision site. She is a direct admission from [facility] for treatment and evaluation of post-op infection and possible sepsis. PLAN: ?? Post-operative L5-S1 discectomy infection with drainage at incision site: Patient is post-op day 9 after L5-S1 discectomy that occurred at [facility]. Patient with increased pain, fevers, and leukocytosis (WBC of 15.6 at [place]). Zosyn and Vancomycin have been initiated, continue. CBC and BMPin the morning. Pain management with dilaudid, rehydrate. Wound culture growing staph. Blood cultures pending. On vanc and zosyn. Consulting ID. ?? Sepsis: with fever, tachy, leukocytosis, secondary to post-op infection. Will order chest x-ray to rule out pulmonary infection. Patient with fever, however vital signs stable. Lactic acid pending. Treat infection as above, rehydrate. ?? Encephalopathy: septic encephalopathy given current infection or dilaudid administration vs secondary to narcotics. Monitor, rehydrate, expect to improve as infection is addressed and patient requires less pain medications. Improving. GI prophylaxis: none DVT prophylaxis: sc heparin Disposition: Anticipated date of discharge 2-3 days Criteria for discharge is ID work up, antibiotic plan, pain control. Discussed care plan with patient. Janene Urrutia MD DAIRY CATTLE FARMER Manuela Tamayo, Pharm D - 05/02/2016 7:36 AM CST Pharmacy Kinetics Consult Jennifer Cole, 05/02/2016, Time: 7:36 AM SUBJECTIVE Jennifer Cole is a 76 y.o. female who was admitted on 05/01/2016. Pharmacy was consulted by Dr. Urrutia to dose and monitor Vancomycin for a post-op wound infection. OBJECTIVE Antibiotic Allergies: NKDA Current/Recent Antibiotics: - Zosyn 3.375 g IV q8h (05/01 - ) Cultures and Sensitivities: - 05/01 Blood x 2: in process Vitals: Temp (24hrs), Av.8 ??F, Min:98.9 ??F, Max:100.2 ??F Height: 157.5 cm (5' 2) Weight: 69.4 kg (153 lb) LBW: 50 kg CBW: NA Labs: Recent Labs 05/02/16 0533 WBC 9.2 CREATININE 0.91 Date Day Scr CrCL Dose/Freq Time Level Comments 05/01 1 0.76 ~50 1250 mg x1 1117 [facility] 05/02 2 0.91 ~48 1250 mg q24h 0600 ASSESSMENT/PLAN 76 YO F admitted with post op infection from [place]. Given 1250mg vanco prior to transfer. Continued on q 24 hour dosing here given current renal function. RENAL: SCr 0.91 (trend up?) - follow. Making urine. Vancomycin 1250 mg x1 at [facility] prior to admission 05/01. Dose: Vancomycin 1250 mg IV every 24 hours Vancomycin goal trough: 10-15 mcg/mL Next vancomycin level due: 05/04/16 Pharmacy will continue to follow. Please call with questions. Manuela Tamayo Pharm D, [facility], 05/02/2016 8:04 AM Phone #: [phone] DAIRY CATTLE FARMER Rolando Fajardo RN - 05/01/2016 11:37 PM CST Danielito JEROME paged with Chest x-ray results and requested for Straight cath orders. DAIRY CATTLE FARMER Rolando Fajardo RN - 05/01/2016 11:28 PM CST A direct admit from [facility] at 1610 with severe back pain and ?infection to incision following recent L5-S1 discectomy , per Son pt was discharge on 04/26 had a discectomy on 04/22/16 at [facility]; Pt was doing very well without pain meds because they were making her have nausea and vomiting, so she has been controlling her pain with ibuprofen. However, today she developed excruciating pain at the surgical site rated at a 9/10 without radiation. Also incision site has been draining blood since the surgery,Son does dressing changes twice a day, had low grade fevers today temp of 100.8 with . (WBC 15.6) . On assessment pt alert , restless and drowsy following several doses of Dilaudid and poor sleep last night , will open eyes and fall back to sleep .Pain 7/10 , Dilaudid 0.25 mg given assisted to reposition . Dressing changed to lower back , wound dehiscence noted 4 X4 applied and secured with tape. IV Zosyn started , will start vanco . Tylenol for fever and Flexeril 5 mg for muscle s pasms .Able to move feet , Bedrest at this shift because of being drowsy.Started on regular diet , offered fluid to drink, offered meals was able to eat little . Unable to void , Bladder scan 437 ml , orders to straight cath 400 ml drained at 2100.Blood pressure 124/57, pulse 81, temperature 100.2 ??F(37.9 ??C), resp. rate 18, height 5' 2 (1.575 m), weight 69.4 kg (153 lb), SpO2 96 %. Pt on bedrest, bed alarm on , frequent checks . Offered oral fluids. DAIRY CATTLE FARMER Carlos Perales, Pharm D - 05/01/2016 8:45 PM CST Pharmacy Kinetics Consult Jennifer Cole, 05/01/2016, Time: 8:46 PM SUBJECTIVE Jennifer Cole is a 76 y.o. female who was admitted on 05/01/2016. Pharmacy was consulted by Dr. Urrutia to dose and monitor Vancomycin for a post-op wound infection. OBJECTIVE Antibiotic Allergies: NKDA Current/Recent Antibiotics: Zosyn 3.375 g IV q8h Cultures and Sensitivities: Vitals: Temp (24hrs), Av ??F, Min:99.8 ??F, Max:100.1 ??F Height: 157.5 cm (5' 2) Weight: 69.4 kg (153 lb) LBW: 50.1 kg CBW: 58 kg Labs: No Lab Results Found (last 72 hours) Date Day Scr CrCL Dose/Freq Time Level Comments 05/01 1 0.76 50 1250 mg x1 1117 [facility] 05/02 1250 mg q24h 06 ASSESSMENT/PLAN Vancomycin 1250 mg x1 at [facility] prior to admission 05/01. Dose: Vancomycin 1250 mg IV every 24 hours Vancomycin goal trough: 10-15 mcg/mL Next vancomycin level due: 05/04/16 Pharmacy will continue to follow. Please call with questions. Carlos Perales, Pharm D Phone #: [phone] DAIRY CATTLE FARMER Maricarmen Bennett RN - 05/01/2016 4:43 PM CST P. Admission- Pt direct admit for surgical site apin and prob infection A. Condition on Admit: Pt in bed and is drowsey but seems in pain when awake- grimacing and does notwant to move. Pt has low back incision approx 5cm long- scant bloody drainage- redressed. Patient/Family Concerns: Patient expressed concern about pain- A7 RN did medicate pt. Admit startedand update to RN. I. Initial Interventions included: notified MD of patient arrival. TOSHA almaraz now and son is here as well. Orientation to Unit: Patient oriented to how to call for help, name of assigned palliative care specialist, unit and plan of care. R. Patient expressed understanding of information.. DAIRY CATTLE FARMER Jamie Humphries MD - 05/01/2016 3:25 PM CST Acute Care Medicine Cross Cover Note: Called by Dr. Gould at [facility], this is a 76 y.o. female being transferred for evaluation of post operative wound infection. She had an L5-S1 discectomy by Dr. Danii Lucia last week, and came to the [facility] emergency Department yesterday with complaints of increasing back painand drainage from the incision. She originally had her surgery at [facility], but currently thathospitalization unable to accept new patients. She has a slight leukocytosis of 15.6, was febrile onadmission but her vital signs are stable. She was started on vancomycin pending blood and wound cultures, which are being run at [facility]. I did discuss the case with Kwaku Westfall who was on-call for neurosurgery and he agreed that patient can be admitted here and they will see the patient to assist with care. H&P not completed at this time, will be done by the accepting physician on arrival. No orders were placed by me No charges placed with this note. Please call with questions. Jamie Humphries MD, Hospitalist Internal Medicine and Pediatrics Pager: [phone] DAIRY CATTLE FARMER documented in this encounter H&P Notes Krystle Cummings PA-C - 05/01/2016 5:07 PM CST ADMISSION HISTORY AND PHYSICAL Patient Name: Jennifer Cole Address: [address] [place] [id number] Age: 76 y.o. Sex: female Admission Date/Time: 05/01/2016 3:48 PM Primary Care Provider: Anup Evans MD Informant: patient and sons CHIEF COMPLAINT: Back pain, drainage from surgical wound HPI: Note: Patient was recently given dilaudid prior to encounter and is currently somnolent. She briefly arouses to verbal and physical stimuli but does not stay awake long enough to provide anything more than yes or no answers. Patient's sons are present during encounter and provide most of the information for the history. This is a 76 year old female with a past medical history significant for lumbar disc herniation s/precent L5-S1 discectomy and tobacco dependence who initially presented to [facility] emergency department after having worsening back pain and increased drainage from her surgical incision site. Patient had a discectomy on 04/22/16 at [facility]; today is post-op day 9. Her son reports that patient was initially doing well post-operatively and was discharged to home under the care of her son. She was not taking her post-op pain medications because they were making her have nausea and vomiting, so she has been controlling her pain with ibuprofen. However, today she developed excruciating pain at the surgical site rated at a 9/10 without radiation. Her son notes that the incision site has been draining blood ever since the surgery, and there has been some exudate today. Patient developed some low grade fevers at home today. Given the extreme increase in pain (especially given that the patient typically has a very high pain tolerance) and fevers, patient's son brought her to the [facility] emergency department for evaluation. Patient was found to be febrile with leukocytosis (WBC 15.6) in the emergency department. An attempt was made to transfer patient to [facility] (where surgery occurred), but hospital was full and [place]'s surgeon is currently out of the country. Therefore, patient was accepted as a direct admission to [facility] for further treatment of a post-op infection. PAST MEDICAL HISTORY: Past Medical History Diagnosis Date ??? Lumbar disc herniation ??? Tobacco dependence PAST SURGICAL HISTORY: Past Surgical History Procedure Laterality Date ??? Hx cholecystectomy 1970 ??? Hx back surgery Right 09/02/2013 L5-S1 hemilaminectomy + discectomy ??? Hx breast surgery Right 1995 Cyst resection ??? Hx back surgery 04/2016 PRIOR TO ADMISSION MEDICATIONS: Prior to Admission Medications Prescriptions Last Dose Informant Patient Reported? Taking? acetaminophen (TYLENOL) 325 mg oral tablet Yes Yes Sig: Take 325 mg by mouth every 6 (six) hours as needed (prn back pain). ibuprofen (ADVIL;MOTRIN) 200 mg oral tablet Yes Yes Sig: Take 200-400 mg by mouth every 6 (six) hours as needed (prn back pain). Facility-Administered Medications: None ALLERGIES: Review of patient's allergies indicates no known allergies. FAMILY HISTORY: Family History Problem Relation Age of Onset [...] ??? Cancer Daughter ??? Kidney Disease Daughter SOCIAL HISTORY: Social History Social History ??? Marital status: Spouse name: N/A ??? Number of children: N/A ??? Years of education: N/A Occupational History ??? Not on file. Social History Main Topics ??? Smoking status: Current Every Day Smoker Packs/day: 1.00 Years: 60.00 Types: Cigarettes ??? Smokeless tobacco: Never Used ??? Alcohol use Yes Comment: Occasional ??? Drug use: No ??? Sexual activity: Not on file Other Topics Concern ??? Not on file Social History Narrative Merged History Encounter REVIEW OF SYSTEMS: A complete 10 point review of systems was not obtained due to patient's current altered mental status. Her son provided the following information: General: Reports normal recent appetite, fevers earlier today. HEENT: No known information. Pulmonary: Denies coughing, wheezing, shortness of breath. Cardiovascular: No known chest pain or palpitations. Gastrointestinal: Had some nausea earlier today but no vomiting. Develops nausea and vomiting with opioid use. Genitourinary: No known dysuria. Neurologic: Reports patient has been mobile and ambulatory after surgery, no known numbness or tingling of extremities. Musculoskeletal: No known pain other than back pain. Skin: Exudate and bleeding from incision site. Endocrinology: No known problems. PHYSICAL EXAM: Temp (24hrs), Av.1 ??F (37.8 ??C), Min:100.1 ??F (37.8 ??C), Max:100.1 ??F (37.8 ??C) BP 139/62 Pulse 92 Temp 100.1 ??F (37.8 ??C) Resp 16 Ht 5' 2 (1.575 m) Wt 69.4 kg (153 lb) SpO2 93%BMI 27.98 kg/m2O2 Delivery Source: Nasal Cannula Wt Readings from Last 2 Encounters: 05/01/16 69.4 kg (153 lb) 04/16/16 69.9 kg (154 lb 3.2 oz) Body mass index is 27.98 kg/(m^2). General appearance: Patient is somnolent but rouses briefly to verbal and physical stimuli. Appears to be distressed and in pain, at time very restless due to pain. Briefly answers some yes or no questions, but does not stay awake long enough to provide full sentence answers. HEENT: Head: Normocephalic, Atraumatic. Eyes: Pupils equal, round, and reactive to light. Extraocular movements not evaluated. No scleral icterus. Oropharynx: Mucosa moist, no lesions. Neck: Supple, no thyromegaly or adenopathy. RESPIRATORY: Coarse lung sounds but no wheezes, rhonchi, or crackles. CARDIOVASCULAR: Regular rate and rhythm. Normal S1/S2. No murmurs, rubs or gallops. Peripheral pulses intact. GASTROINTESTINAL: Soft, non-distended. Non-tender, no rebound or guarding. No hepatosplenomegaly or masses appreciated. Bowel sounds are present. Negative cutaneous hyperesthesia. MUSCULOSKELETAL: Without deformity, normal range of motion, no apparent muscle atrophy. EXTREMITIES: Distal pulses are palpable, extremities well perfused. No pedal edema present. SKIN: Warm, dry, no rashes or ecchymoses. No mottling of skin. Attempted to visualize incision site,but due to patent's pain and difficulty moving patient in a position adequate for inspection, wound was not visualized. NEUROLOGIC: Patient moves all extremities. Cranial nerves attempted but not evaluated as patient notable to concentrate long enough to follow all commands. Gross sensation and strength are equal bilaterally. PROCEDURES: None IMAGING: Chest x-ray pending LABS: No results found for this or any previous visit (from the past 24 hour(s)). EKG: None ADDITIONAL COMMENTS: I reviewed the patient's new clinical lab test results. I reviewed the patient's medications. I reviewed the patient's new imaging test results. ASSESSMENT: Jennifer Cole is a 76 y.o. female with a past medical history significant for lumbardisc herniation s/p recent L5-S1 discectomy and tobacco dependence who initially presented to [facility] emergency department after having worsening back pain and increased drainage from her surgical incision site. She is a direct admission from [facility] for treatment and evaluation of post-op infection and possible sepsis. Principal Problem: Post-operative infection Active Problems: Sepsis (HCC) Encephalopathy PLAN: ?? Post-operative L5-S1 discectomy infection with drainage at incision site: Patient is post-op day 9 after L5-S1 discectomy that occurred at [facility]. Patient with increased pain, fevers, and leukocytosis (WBC of 15.6 at [place]). Zosyn and Vancomycin have been initiated, continue. CBC and BMPin the morning. Pain management with dilaudid, rehydrate. Wound culture is pending, blood cultures reportedly collected at [facility] prior to transfer. Neurosurgery is aware of the case and has agreed to see patient; consult appreciated. ?? Sepsis: Secondary to post-op infection. Will order chest x-ray to rule out pulmonary infection. Patient with fever, however vital signs stable. Lactic acid pending. Treat infection as above, rehydrate. ?? Encephalopathy: Either toxic or septic encephalopathy given current infection or dilaudid administration (patient's son report that patient's state changed after dilaudid administration). Monitor, rehydrate, expect to improve as infection is addressed and patient requires less pain medications. Fluid, Electrolytes and Nutrition: Fluids: IV NS @ 100 Electrolytes: none Nutrition: Regular diet CODE STATUS: Full Code DVT prophylaxis: SCD, heparin GI prophylaxis: None ACCESS: peripheral RESTRAINTS: Not indicated DISPOSITION: Anticipated date of discharge 2+ days. Criteria for discharge is clinical improvement, adequate pain management and antibiotic treatment with oral medications. LENGTH OF STAY: IP - Anticipated LOS >2Midnights due to acuity of clinical presentation requiring inpatient levelof care Time: 70 minutes I have seen this patient in a joint visit with Dr. Urrutia on 05/01/2016 who has seen and evaluated this patient independently. The assessment and plan for this patient represents our joint decision making. Krystle Cummings PA-C [facility] Medicine Service Pager: [phone] DAIRY CATTLE FARMER Associated attestation - Janene Urrutia MD - 05/01/2016 10:27 PM STUD DAIRY CATTLE FARMER I have seen the patient on my own and participated in her care. I have examined her. I agree with TOSHA. I have personally reviewed the patient's history and test results. Assessment and Plan: Recent L5-S1 discectomy with 1 day of severe back pain, increased drainage, fever on 102 F in ED. Has associated sepsis and encephalopathy. Start on broad spectrum antibiotics, pain meds. Consult neurosurgery, send cultures. Discussed care plan with family, nurse. Janene Urrutia MD documented in this encounter Procedure Notes uSshil Young RN - 05/09/2016 6:13 PM CSTAssociated Order(s): CONSULT VASCULAR ACCESS NURSE (VAN) Procedure(s): INSERT PICC PICC INSERTION Patient Name: Jennifer Cole Ordering Physician: AAKASH Caicedo Indications for PICC: Gas Mask Inspector Therapy Consent obtained from: Patient Vascular History: none Renal okay if applicable: N/A Anesthetic: 2 ml Lidocaine 1% instilled interdermal Dermatotomy: Yes Number of attempts to pass catheter successfully to SVC: One Complications: None Comments: N/A Refer to LDA properties for bundle compliance and device information. Sushil Young RN DAIRY CATTLE FARMER Danii Lucia MD - 05/09/2016 10:42 AM CST Pre-op diagnosis: Infected lumbar incision Post-op diagnosis: Same Procedure: Incision washout, culture, and re-closure Surgeon: Anupama Lucia Tattoo Designer: Denise Kline Complications: None apparent Findings: Some purulent material GETA EBL: 10cc Specimens: Sent for culture Disposition: to PACU Danii Lucia Dictation #[id number] DAIRY CATTLE FARMER Tomás Poe MD - 05/08/2016 11:47 AM CST IR Procedure: CT guided aspiration of post-operative lumbar fluid collection. Physician: SHIRAZ Poe MD Complications: None. Summary: CT guided aspiration of lumbar post-operative fluid collection. Specimens sent to Pathologyfor analysis. DAIRY CATTLE FARMER documented in this encounter Consult Notes Amado Contreras RN - 05/08/2016 8:41 AM CST Interventional Radiology: Jennifer Cole 1940 post op L-5 S-1 laminectomy/ discectomy infection Past Medical History Diagnosis Date ??? Lumbar disc herniation ??? Tobacco dependence Allergies Allergen Reactions ??? Percocet [Oxycodone-Acetaminophen] Itching Severe itching Lab: Results for KATARINAJENNIFER CHARLES ( ) as of 05/08/2016 08:41 Ref. Range 05/08/2016 05:17 PROTIME Latest Ref Range: 10.0 - 13.0 sec. 12.5 INR Latest Ref Range: 1.0 - 1.2 [address] poe. Limited exam, chart reviewed. Jennifer Cole is a 76 y.o. female seen today for CT guided aspiration, possible drainage catheter placement of lumbar fluid collection. Jennifer has a history of recent lumbar surgery. CT guided needle aspiration, possible drain placement are discussed. Risks, benefits and alternatives including but not limited to bleeding, infection, allergy to contrast or medications and collateraltissue injury are discussed. All questions answered, she wishes to proceed, consent signed and on chart. Amado Contreras RN Radiology Nurse Clinician [facility] Radiology: [phone] Pager: [phone] DAIRY CATTLE FARMER Maricarmen Gomez - 05/02/2016 4:01 PM CST Occupational Therapy - Acute Evaluation Consult Patient's Name Jennifer Cole Attending Provider Acm-Hospitalist Patient's 1940 Admitting Diagnosis post op L-5 S-1 laminectomy/ discectomy infection Patient's Age 76 y.o. Admission Date/Time 05/01/2016 3:48 PM Patient's Gender female Today's Date/Time 05/02/2016 / 4:01 PM Patient's Therapist Maricarmen Gomez Onset of Symptoms Date: 05/01/16 Patient History Social: Private Home, With Family Past Medical History: Refer to H&P Vocational: Retired Precautions: Fall Risk Pre-Hospitalization ADL Status Hygienes: Independent Grocery Shopping: Independent Feeding: Independent Money Management: Independent Dressing: Independent Medication Management: Other (Comment) (No med's prior to admit) Meal Prep: Independent Driving Status: Independent Yard Work/Snow Removal: Not Responsible Current ADL Status Hygienes: Will Further Assess Dressing: Needs Assist Feeding: Independent Meal Prep: Needs Assist Homemaking: Needs Assist Cognitive Function Attention Span: Fair for evaluation session Oriented to Place: Accurate Level of Alertness: Alert Oriented to Date: Other (Comment), Accurate Mood: Cooperative Immediate Memory: Accurate Motivation: Good Recent Memory: Inconsistent Orientation to Person: Accurate Remote Memory: Accurate Previous Hand Dominance Previous Hand Dominance: Right RUE Function RUE AROM: Functional RUE Strength: Functional LUE Function LUE AROM: Functional LUE Strength: Functional Endurance/Activity Tolerance Endurance/Activity Tolerance: Fair Pain Score Pain (0-10): 4 (Nurse notified and getting pain medication) Patient Education Patient/Family Education: Educated on role of OT, Goals set together Patient Goals Patient Goal/Preference: To get stronger and get back home Short-Term Goals Pt will in: 5-7 days Grooming Goals: Complete grooming independently after set-up Dressing Goals: Dress self independently with minimal assist Cognitive Goals: Other (Comment) (complete formal cognitive tests) Energy Conservation: Verbalize three methods to conserve energy during ADL's Endurance Goals: Tolerate 30 minutes of light UE exercise/ADL activity Long-Term Goals Patient Will:: Maximize ADL independence Patient Strengths Strengths: Prior Level of [place]/Activity, Motivated, Functional UE Strength Patient Limitations Limitations: Deconditioned, Impaired Cognition, Multiple Medical Issues, Needs Assist for ADL's, Decreased Mobility Treatment Plan Treatment Plan: Graded UE exercises/Endurance building, Cognitive remediation/Compensation, ADL evaluation and training with adaptive equipment, Patient/family education, Work simplification/Energy conservation instructions Frequency Duration Pt will be seen: 1 x daily Duration: During hospitalization Therapy Potential Therapy: Good 7N Rehab Unit: Not appropriate Recommendations Patient admitted to [facility] on 05/01/2016 due to L5-S1 infection and encephalopathys/p L5-S1 laminectomy and disectomy on 04/22 (performed at [facility]). Pt was seen at bedside for OT initial eval. Pt was very restless during eval. Attempted SLUMS but pt unable to complete. STM a ppeared decreased. Pt stated she was in pain so nurse was notified and addressing pain. Pt required assist to be re-positioned in bed for comfort. BUE'S functional. Recommendations: Ongoing OT Services, 24 Hour Supervision and assist for safety at this point secondary to decreased mobility, decreased ADL independence and decreased cognition OT Services: ADL's, Endurance/Activity Tolerance, Strengthening, Cognition DAIRY CATTLE FARMER Rolando Valladares MD - 05/02/2016 1:55 PM CST CONSULTATION NOTE Patient Name: Jennifer Cole Age:76 y.o. Sex: female Admission Date/Time: 05/01/2016 3:48 PM Hospital Attending Physician: Nitin-Hospitalist Primary Care Provider: Anup Evans MD I was asked to see this patient at the request of Dr. Humphries for evaluation and antibiotic recommendations. CONSULTATION ASSESSMENT Principal Problem: Staphylococcal infection Active Problems: Post-operative infection Sepsis (HCC) Encephalopathy PLAN/RECOMMENDATIONS: 1. Agree w IV antibiotics, adjsut once final microbiology available Wound culture from [employer] system (+) S. aureus (susceptibilities not yet released) No blood cultures that I can locate Surgical plans as per Neurosurgical team, does not appear she will need I&D at this time 2. Encephalopathy seems better but she remains somewhat withdrawn Follow labs and clinical response Suspect multifactorial Thanks for calling, will follow HPI: 76 y.o. WF with recent L5/S1 bilateral laminectomy at outside facility with postoperative wounddrainage and concern for infection who had to be admitted to hospital 05/01/2016 3:48 PM here at [facility]. No family available, but review of medical record shows that initially was to be admitted to [facility] had to be diverted here due to lack of beds. Denies any LE paresthesias or weakness. Wound dressed by Neurosurgical team here @ [facility]. No fevers presently but admits to significant amount of fatigue. REVIEW OF SYSTEMS A comprehensive review of systems was negative except for items noted in the HPI/Subjective. PAST MEDICAL HISTORY Past Medical History Diagnosis Date ??? Lumbar disc herniation ??? Tobacco dependence PAST SURGICAL HISTORY Past Surgical History Procedure Laterality Date ??? Hx cholecystectomy 1970 ??? Hx back surgery Right 09/02/2013 L5-S1 hemilaminectomy + discectomy ??? Hx breast surgery Right 1995 Cyst resection ??? Hx back surgery 04/2016 CURRENT MEDS Current Facility-Administered Medications Medication Dose Route Frequency Provider Last Rate Last Dose ??? saline FLUSH syringe 5 mL 5 mL Intravenous Q8H Janene Urrutia MD 5 mL at 05/02/16 1337 ??? saline FLUSH syringe 5 mL 5 mL Intravenous PRN Janene Urrutia MD 10 mL at 05/02/16 1310 ??? acetaminophen (TYLENOL) tablet 325-650 mg 1-2 tablet oral Q4H PRN Janene Urrutia MD 650 mg at 05/01/162126 ??? bisacodyl (DULCOLAX) delayed released tablet 5-15 mg 5-15 mg oral DAILY PRN Janene Urrutia MD ??? cyclobenzaprine (FLEXERIL) tablet 5 mg 5 mg oral Q8H PRN Krystle Cummings PA-C 5 mg at 05/01/162126 ??? heparin injection 5,000 Units 5,000 Units Subcutaneous Q8H Janene Urrutia MD 5,000 Units at 05/02/16 1338 ??? HYDROmorphone (DILAUDID) syringe 0.5-1 mg 0.5-1 mg Intravenous Q4H PRN Janene Urrutia MD 0.25 mgat 05/01/162010 ??? [START ON 05/03/2016] influenza vaccine [id number] HIGH DOSE (65 years and older) (PF) (FLUZONE HIGH DOSE) 0.5 mL 0.5 mL IntraMUSCULAR ONCE - TOMORROW Daisy Mata, MADELYN ??? lidocaine 1% (XYLOCAINE) injection 0.1-0.3 mL 0.1-0.3 mL Intradermal PRN Janene Urrutia MD ??? lidocaine 1% / 8.4% sod bicarb (buffered lidocaine) syringe for IV starts 0.1-0.3 mL 0.1-0.3 mL Intradermal PRN Janene Urrutia MD ??? magnesium hydroxide (MILK OF MAGNESIA) suspension 30 mL 30 mL oral DAILY PRN Janene Urrutia MD ??? ondansetron (ZOFRAN) injection 4-8 mg 4-8 mg Intravenous Q8H PRN Janene Urrutia MD 4 mg at 05/02/16 0639 Or ??? ondansetron (ZOFRAN) disintegrating tablet 4-8 mg 4-8 mg oral Q8H PRN Janene Urrutia MD 4 mg at 05/02/16 1210 ??? oxyCODONE-acetaminophen (PERCOCET) tablet 1-2 tablet 1-2 tablet oral Q4H PRN Janene Urrutia MD 1tablet at 05/02/16 1210 ??? piperacillin-tazobactam ( ZOSYN ) 3.375 g in sodium choride 0.9% 100 mL IV piggyback - extended infusion 3.375 g Intravenous Q8H Janene Urrutia MD 3.375 g at 05/02/16 0840 ??? polyethylene glycol (MIRALAX) packet 17 g 17 g oral DAILY PRN Janene Urrutia MD ??? senna (SENOKOT) tablet 1-2 tablet 1-2 tablet oral Twice Daily Janene Urrutia MD 1 tablet at 05/02/16 0840 ??? sodium chloride 0.9 % IV solution Intravenous CONTINUOUS Krystle Cummings PA-C 100 mL/hr at107/03/15 1338 100 mL/hr at 05/02/16 1338 ??? sodium phosphates (FLEET) rectal enema 1 enema 1 enema Rectal DAILY PRN Janene Urrutia MD ??? vancomycin (VANCOCIN) 1,250 mg in sodium chloride 0.9 % 250 mL IV piggyback 20 mg/kg (Adjusted) Intravenous Q24H (NS) Carlos Perales, Pharm D 1,250 mg at 05/02/16 0653 ??? Vancomycin Pharmacy Consult 1 Consult N/A PRJanene Gupta MD ALLERGIES/SENSITIVITIES No Known Allergies FAMILY HISTORY Family History Problem Relation Age of Onset [...] ??? Cancer Daughter ??? Kidney Disease Daughter SOCIAL HISTORY Social History Substance Use Topics ??? Smoking status: Current Every Day Smoker Packs/day: 1.00 Years: 60.00 Types: Cigarettes ??? Smokeless tobacco: Never Used ??? Alcohol use Yes Comment: Occasional History Drug Use No History Sexual Activity ??? Sexual activity: Not on file IMMUNIZATION HISTORY There is no immunization history for the selected administration types on file for this patient. TRAVEL HISTORY No pertinent travel history for this problem. PHYSICAL EXAM GENERAL APPEARANCE: younger than stated age BP 121/67 Pulse 78 Temp 98.2 ??F (36.8 ??C) Resp 16 Ht 5' 2 (1.575 m) Wt 69.4 kg (153 lb) SpO2 98% BMI 27.98 kg/m2 Body mass index is 27.98 kg/(m^2). HEENT: Head - Normocephalic, atraumatic Eyes - Normal lids and conjuntivae, PERRLA, EOMs intact Ears - External normal Nose - No deformity, without masses, no congestion Oropharynx - Oral mucosa and pharnyx normal, moist mucous membranes. NECK: Supple with no adenopathy. RESPIRATORY: Lungs clear to auscultation bilaterally. CARDIOVASCULAR: Normal S1, normal S2, regular rhythmn, without murmur. GASTROINTESTINAL: Soft, non-tender, normal bowel sounds. No masses. HEME/LYMPH/IMMUNOLOGIC: No unusual bleeding or bruising SKIN: Intact, warm, dry. No rashes or lesions. NEUROLOGIC: alert and oriented, moves all extremities EXTREMITIES: No edema or cyanosis. MSK wound per Neurosurgical team Results for orders placed or performed during the hospital encounter of 05/01/16 (from the past 24 hour(s)) Cult-Blood NMR (lab use only) Result Value Ref Range CULT-BLOOD No growth 12 hours. Cult-Blood NMR (lab use only) Result Value Ref Range CULT-BLOOD No growth 12 hours. Lactic Acid, Plasma Result Value Ref Range LACTIC ACID 0.7 0.7 - 2.1 mMol/L CBC / Diff Result Value Ref Range WBC 9.2 4.3 - 10.8 K/uL RBC 3.60 (L) 4.20 - 5.40 M/uL HEMOGLOBIN 11.1 (L) 12.0 - 16.0 gm/dL HEMATOCRIT 35.3 (L) 36.0 - 48.0 % MCV 98 80 - 100 fl MCH 31 27 - 33 pg MCHC 31 (L) 33 - 36 gm/dL RDW 12.6 11.5 - 14.5 % PLATELET COUNT 187 150 - 400 K/uL MPV 11.4 6.5 - 12.0 PMN % 75.4 % IG% 0.3 <=1.0 % LYMPH % 15.5 % MONO % 7.7 % EOS % 0.9 % BASO % 0.2 % PMN ABSOLUTE 6.96 1.80 - 7.80 K/uL IG ABSOLUTE 0.03 K/uL LYMPH ABSOLUTE 1.43 1.00 - 4.00 K/uL MONO ABSOLUTE 0.71 0.00 - 1.00 K/uL EOS ABSOLUTE 0.08 0.00 - 0.45 K/uL BASO ABSOLUTE 0.02 0.00 - 0.20 K/ul NUCL RBC % 0.0 0.0 - 0.0 /100 WBC NUCL RBC ABSOLUTE 0.00 K/uL Basic Metabolic Profile Result Value Ref Range SODIUM 139 136 - 145 mMol/L POTASSIUM 4.0 3.5 - 5.1 mMol/L CHLORIDE 106 98 - 112 mMol/L CARBON DIOXIDE 28 21 - 32 mMol/L BUN (UREA NITRO) 13 7 - 24 mg/dL CREATININE 0.91 0.55 - 1.02 mg/dL EST GFR (MDRD) 60 (L) >60 mL/min EST GFR IF AM >60 >60 mL/min GLUCOSE 95 74 - 106 mg/dL CALCIUM, SERUM 8.2 (L) 8.5 - 10.1 mg/dL ANION GAP 5.0 0.0 - 15.0 mMol/L Additional comments: Old records requested/reviewed. I thank Dr. Humphries for the opportunity to participate in the patient's care. Time: 80 minutes Rolando Valladares MD DAIRY CATTLE FARMER Bradley Carlos MD - 05/02/2016 9:50 AM CST NEUROSURGICAL CONSULTATION NOTE Patient Name: Jennifer Cole Address: [address] [place] [id number] Age:76 y.o. Sex: female Admission Date/Time: 05/01/2016 3:48 PM Hospital Attending Physician: Nitin-Hospitalist I was asked to see this patient at the request of Dr. Urrutia for evaluation of wound infection. CHIEF COMPLAINT: Back pain HPI: This 76 y.o. female who recently had L5-S1 bilateral laminectomy and medial facetectomy on 04/23/[address] Lucia. Since discharging home, she has had serosanginous drainage from incision, requiring dressing changes daily. She developed worsening low back pain and low grade fever on 05/01 so presented to [facility] ED for evaluation. The patient was transferred to [facility] for further care. Temp 100.1 and WBC 9.2 on arrival. Cultures sent - pending. Patient is awake, alert. Reports low back pain.Denies headache, N/V, motor/sensory complaints. REVIEW OF SYSTEMS A comprehensive review of systems was negative except for items noted in the HPI/Subjective. PAST MEDICAL HISTORY Past Medical History Diagnosis Date ??? Lumbar disc herniation ??? Tobacco dependence PAST SURGICAL HISTORY Past Surgical History Procedure Laterality Date ??? Hx cholecystectomy 1971 ??? Hx back surgery Right 09/02/2013 L5-S1 hemilaminectomy + discectomy ??? Hx breast surgery Right 1995 Cyst resection ??? Hx back surgery 04/2016 PRIOR TO ADMISSION MEDICATIONS Prescriptions Prior to Admission Medication Sig Dispense Refill Last Dose ??? cyanocobalamin 500 mcg oral Tab Take 500 mcg by mouth once daily. 05/01/2016 ALLERGIES No Known Allergies FAMILY HISTORY Family History Problem Relation Age of Onset [...] ??? Cancer Daughter ??? Kidney Disease Daughter SOCIAL HISTORY Social History Social History ??? Marital status: Spouse name: N/A ??? Number of children: N/A ??? Years of education: N/A Occupational History ??? Not on file. Social History Main Topics ??? Smoking status: Current Every Day Smoker Packs/day: 1.00 Years: 60.00 Types: Cigarettes ??? Smokeless tobacco: Never Used ??? Alcohol use Yes Comment: Occasional ??? Drug use: No ??? Sexual activity: Not on file Other Topics Concern ??? Not on file Social History Narrative Merged History Encounter PHYSICAL EXAM BP 121/67 Pulse 78 Temp 98.2 ??F (36.8 ??C) Resp 16 Ht 5' 2 (1.575 m) Wt 69.4 kg (153 lb) SpO2 98% BMI 27.98 kg/m2 Body mass index is 27.98 kg/(m^2). General Appearance: Awake, alert. Resting comfortably in bed HEENT: No evidence of otorrhea or rhinorrhea Neck: Non-tender to palpation Respiratory: Normal respiratory effort Cardiovascular: Normal heart rate Extremities: No obvious deformities Neurologic Exam: Orientation: A&Ox3 Speech: Clear, fluent Memory: Good Cranial Nerves: Face symmetrical. EOMs full, PERRLA, conjugate gaze. Tongue midline. Shoulder shrug equal Motor: 5/5 throughout all 4 extremities Sensation to light touch: Normal in all 4 extremities Integument: Posterior lumbar incision -- superficial opening with mild surrounding erythema, serosang fluid draining. No purulent material ASSESSMENT/PLAN: 76 yo female with recent L5-S1 bilateral laminectomy and medial facetectomy on 04/23/[address] Lucia. She unfortunately has had superficial skin opening of incision with serosang draininage. No purulent material. No evidence of CSF leak. Cultures sent - pending. On antibiotics. Discussed with Dr. Carlos - Prevena system placed over incision. Will discuss with Dr. Lucia tomorrow. No surgical plansat this time. Continue antibiotics. Will follow up cultures. Can increase activity/diet from our standpoint. Discussed with patient's son. DVT PPX: okay Thank you for the opportunity to participate in this patient's care. Deepali Kline PA-C Pager: Agree with above. Pt with wound drainage since surgery. No significant change. Wound more open yest with worsening pain. Admitted for eval. No focal deficits. WBC 9.2, afebrile since admission Drainage mostly serosang without any sign of infection around wound. Plan on Prevena over wound today. No surgical plans at this time. Cont abx for now. Will follow. Bradley Carlos MD [facility] Neurosurgery [phone] Pg. [phone] 05/02/2016 11:39 AM DAIRY CATTLE FARMER Nnamdi Aguilar, PT - 05/02/2016 9:46 AM CST PT ACUTE EVALUATION History: Patient admitted to [facility] on 05/01/2016 due to L5-S1 infection and encephalopathy s/p L5-S1 laminectomy and disectomy on 04/22 (performed at [facility]). Refer to Jaimee Assessment, Chart Review, and Past Medical History. Social History: Patient had discharged home with support from her son after recent back surgery, wasapparently doing well until 05/01 when she developed sharp increase in low back pain with fever as well. She lives in a private home with her , her son and [id number] with stairs to enter with 1 rail. There are stairs within the home with 1 rail. Patient uses no assistive device at baseline. Patient has been independent with ADLs since her surgery. Evaluation Findings: Patient was seen in room for initial evaluation. Patient's son present for partof session. Patient was cooperative, confused and lethargic. Intermittently alert. Patient follows directions and participates in PT activity but required a lot of safety awareness cues. Judgment appears impaired and communication is WFL. ROM: Patient's UE and LE ROM are WFL. Strength: R knee extensors: 4/5, R hip flexors: 4/5, remainder of LEs: 4+/5. UEs: 5/5 throughout. Sensation: Patient's light touch was intact in upper extremities and lower extremities. Mobility: Patient lying in bed on her L side upon PT arrival. Had wound vac applied to LBP during session. Bed mobility: supine <> sit with SBA, assist to manage lines as patient moved quickly and impulsively. Multiple cues to not lean forward and fall out of bed once patient sitting at the side of the bed. Transfers: sit to stand with moderate assist. Patient moved very quickly and showed ataxic movement in trunk and LEs. Stand to sit with minimal assist. Safety awareness cues provided. Ambulation: x ~ 5 feet with a RW with moderate assist for balance with patient's RN assisting to manage IV and supplemental O2 lines. Patient moved in a very uncoordinated, almost ataxic pattern, frequently closing eyes, very unsteady. R LE almost appeared to be buckling on 2 occassions, but then was able to fully support her at other times. Max safety cues required. Patient lying in bed with bed rails up, bed alarm on, call light in close reach upon PT exit. Pain: Patient complained of incisional pain in LBP with sitting and when standing. Precautions: Precautions include: oxygen, fall risk, mentation and pain. Endurance: Patient's endurance is unable to be assessed. Patient Education: Patient educated on role of PT, ROM/positioning and strengthening and conditioning. Family Education: safe mobility techniques, risk of falls and importance of involvement in rehab Assessment/Recommendations: Patient's strengths include: good family support, patient cooperation. Patient's limitations include: pain and decreased balance. Patient displayed lethargy, impulsivity, mild confusion, and moved in somewhat reckless/uncoordinated fashion. Did not have any focal mm weakness or sensory deficits, but once ambulating with a walker was extremely unsteady with an inconsistent physical presentation (ex. R knee buckled on 2 occassions but was very strong and stable for the restof the session and had no significant mm strength concerns when tested). Is at very high-risk for falls at present, anticipate significant improvement in mobility status as mental status, arousal etc improves. Recommend 24/7 supervision and assist of 1-2 with all mobility at present. Patient/Family Participation in Goal Setting: Yes Patient Goal/Preference: to get better and go home. Treatment Plan: bed mobility, transfer training, gait training, balance, therapeutic exercise, patient/family education and neuromuscular re-education Goals: Short/technical adjuster Goals: 1-5 days Patient will be able to perform supine <> sit with no assist to demonstrate improved independence with daily mobility tasks within the the home and community. Patient will be able to perform sit <> stand with SBA to demonstrate improved independence with daily mobility tasks within the home and community. Patient will be able to ambulate 250 feet FWB on upper extremities and lower extremities with SBA a rolling walker to demonstrate improved independence with daily mobility tasks within the home and community. Patient will be able to ascend & descend 4 stairs with 1 rail FWB on upper extremities and lowerextremities with SBA to demonstrate improved independence with daily mobility tasks within the home and community. Patient will be able to perform a car transfer with SBA to indicate improved independence with functional, daily mobility tasks. The patient will be able to actively participate in a 30 minute PT treatment session to indicate improved activity tolerance with functional daily mobility tasks. Therapy Potential: fair due to prior level of function and above stated strengths and limitations Frequency and Duration: 1-2x/day, 5-7days/week 5 minutes spent reviewing chart. DAIRY CATTLE FARMER documented in this encounter Nursing Notes EMERITA Houser - 05/11/2016 9:37 AM CST Problem: Discharge Planning Goal: Establish appropriate post-hospitalization placement Outcome: Ongoing Care Management-Discharge Plan Finalization Discharge Date: 05/11 Discharge Needs: Home Infusion, SNV Agency: [facility] (ph. [phone]) SW spoke with Angelina in intake at [facility] (ph. [phone], f. [phone]). They are able to begin services in time for patient's afternoon IV abx dose today. D/C orders, and discharge summary (when available) will be faxed to Angelina. Transportation: Patient's son will transport. Patient already called and spoke with son - he will bein shortly. Updated pt, family, bedside RN, machine brush maker, [employer] of plan. SW also spoke with patient about discharge orders for home PT/OT, and patient declined at this time. Per PT note, patient has been cleared for discharge home with no further therapy recommended at this time. TURNER Godinez, EMERITA Mechanical Oxidizer, Care Management Pager: [phone] 05/11/16 9:35 AM DAIRY CATTLE FARMER Rolando Fajardo RN - 05/10/2016 11:26 PM CST Problem: SAFETY Goal: *Communicates safety needs Outcome: Met this shift Makes needs known , uses call light. Problem: Pain Goal: Exhibits reduction in pain to a level of acceptable comfort Outcome: Met this shift Pain is well controlled with Dilaudid tablet. DAIRY CATTLE FARMER Rena Martinez RN - 05/10/2016 12:32 PM CST Problem: Discharge Planning Goal: Establish appropriate post-hospitalization placement Outcome: Ongoing Care Management - Progress Note Patient's chart reviewed. Patient discussed in rounds. Anticipated Discharge Date: ? 05/11 or 05/12 Anticipated Discharge Needs: home with IV antibiotics Plan: Advertising Director spoke to Dr. Valladares with Infectious Disease and discussed patient's IV antibiotics at discharge; patient will be started on cefazolin 2g IV q 8 hours. Patient is anxious to get home and withthe weekend approaching, short story writer made home infusion referrals to the following companies, per the family's request: - [facility] (p: [phone], f: [phone]) spoke with Skip. ADDENDUM (1:07 PM): VM from Skip at [facility] stating the patient has coverage for IV antibiotics at home through [facility]. [facility] covers a 75% and the patient is responsible for 25% of the entire cost, there is no deductible or out of pocket max. Advertising Director met with patient and updated her on the aforementioned and she is wondering if she can get an idea of how much she will have to pay out of pocket. Advertising Director called and left a message for Skip (p: [phone]) inquiring about an approximate number of the patient's out of pocket cost. Waiting for a call back at this time. - [facility] (p: [phone], f: [phone]) spoke with Mamie. ADDENDUM (2:47 PM): VM from [facility] stating the patient has 100% coverage for home IV antibiotics through [facility]. Mamie asking that if the patient goes over there weekend, to call Sarah's after hours number [phone]. - [facility] (p: [phone], f: [phone]) spoke with Cyndie. Advertising Director called and cancelled referral. - [facility] (p: [phone], f: [phone]) spoke with Rita. W Advertising Director called and cancelled referral. Advertising Director met with patient and updated her on the aforementioned. Care Management will continue to follow. Kary Martinez RN Case Manager, Care Management Pager: [phone] 05/10/2016 12:59 PM ADDENDUM (2:50 PM): Advertising Director met with patient and updated her that [facility] has a [facility] with [facility] and that home with IV antibiotics through [facility] would be covered at 100%. Patient has chosen [facility] to be her home infusion company at discharge. Patient called her son (Dmitriy) and short story writer spoke with him and updated him that his mom does have coverage to go home with IV antibiotics and that [facility] is the name of the home infusion company; Dmitriy verbalized understanding. Patient has been placed on the Care Management weekend discharge list. DAIRY CATTLE FARMER Sandra Quinones RN - 05/08/2016 5:35 PM CST Problem: Falls/Injury-Risk of Goal: Absence of Falls/Injury Outcome: Met this shift Patient free from falls and injury this shift. Bedside commade avaliabel and walker at bedside for fall prevention. DAIRY CATTLE FARMER Molly Emmanuel - 05/08/2016 3:18 PM CST Attempted PT this session. Pt currently supine in bed and has been up a lot to bathroom. Pt declinedPT today. Pt appears down about having I and D tomorrow. Pt thought she was no longer being seen by PT. Advised last PT recommends pt be seen in hospital but not further PT at discharge. DAIRY CATTLE FARMER Rena Martinez RN - 05/08/2016 2:39 PM CST Problem: Discharge Planning Goal: Establish appropriate post-hospitalization placement Outcome: Ongoing Care Management - Progress Note Patient's chart reviewed. Patient discussed in rounds. Anticipated Discharge Date: TBD; likely 2-3 days Anticipated Discharge Needs: IV antibiotics at discharge (4-6 weeks) - outpatient center for IV antibiotic infusion vs home with home infusion services vs TCU Plan: short story writer met with the patient and her son (Melchor) this afternoon to continue discussions about discharge planning, per the son's request. Advertising Director explained that once the discharge IV antibiotic regimen is known, short story writer will make referrals to home infusion companies to check patient's coverage for home with IV infusion services. Patient and son (Melchor) do not have a preference of a home infusion company and asked short story writer to check multiple companies in hopes that one will offer coverage for IV infusion services at home. Advertising Director informed patient's son (Melchor) and patient that short story writer would be happy tomake multiple referrals to different home infusion companies in hopes of getting the patient home with her . Melchor spoke with short story writer outside of patient's room to inform short story writer that patient's of over 40years is very ill and his mother is afraid that her time with him is limited and does not want to bein the hospital or a TCU when/if he passes. Advertising Director offered support to patient's son and asked if he thought his mom would benefit from a visit from a agatha. Melchor declined and stated that his mother had a bad experience with a religious and that a agatha consult would not be appropriate. Plan for patient to have an I&D of incision tomorrow (05/09). Care Management will continue to follow. Kary Martinez RN Case Manager, Care Management Pager: [phone] 05/08/2016 2:39 PM DAIRY CATTLE FARMER Suzanne Prieto RN - 05/08/2016 11:11 AM CST Problem: Falls/Injury-Risk of Goal: Absence of Falls/Injury Outcome: Met this shift 05/07/16 0556 05/08/16 1104 Safety Interventions for Fall and Injury Prevention for ALL Patients Environmental Safety Interventions -- Standard Interventions in Place;Hi-Lo Bed ([employer]Care);Fall Risk Light on Outside Patient Room;Fall Risk industrial economics professor Door (NMR);Patient/Family Reminded Regarding Fall Prevention;High Risk Armband On (Green Bracelet);Frequent Re-Orientation and Repetitive Reminders to Ask for Assistance;Keep Assistive Device Close At All Times Mobility Safety Interventions -- Standard Interventions in Place;Fall Prevention Slippers;Use Assistive Device When Patient Is Up;Stay Within Arms Reach Elimination Safety Interventions -- Standard Interventions in Place;Offered/Assisted with Toileting Every 2 Hours Medication -- Reviewed Prescribed Medications that Could Predispose to Falling;Standard Interventions in Place Consults Social Service Consult -- Problem: Pain Goal: Exhibits reduction in pain to a level of acceptable comfort Outcome: Met this shift Pt reports pain as a 3 on a scale of 0-10. Declines pain medication. Reminded to call nurse if pain worsens or if pain PRN medication is requested. DAIRY CATTLE FARMER Rena Martinez RN - 05/07/2016 3:35 PM CST Problem: Discharge Planning Goal: Establish appropriate post-hospitalization placement Outcome: Ongoing Care Management - Progress Note Patient's chart reviewed. Patient discussed in rounds. Anticipated Discharge Date: TBD Anticipated Discharge Needs: home with outpatient infusion vs home with home infusion services vs TCU Plan: Advertising Director was updated by infectious disease that the patient will more than likely need IV antibiotics at discharge. Advertising Director met with patient and two of her sons to discuss discharge options with IV antibiotics. Advertising Director informed the patient and her sons that the typical discharge plans for IV antibiotics are: outpatient center, home with IV infusion services, or TCU. Advertising Director explained that it will depend on which IV antibiotics the patient discharges on, the frequency of the IV antibiotics, and patient's insurance coverage. One of the patient's sons immediately shotdown the patient receiving IV antibiotics at an outpatient center and when short story writer discussed potential TCU placement, her one son got very angry and agitated and told short story writer that TCU placement for the patient is not an option and we don't use the TCU in our family. Advertising Director attempted to explain that itmight be the patient's only option, depending on insurance coverage, and patient's son get raising his voice and said there is absolutely no way the patient will be discharging to a TCU. Advertising Director explained that if patient's insurance doesn't cover home infusion services, there is always the option to pay privately and both sons stated that the family would pay privately even if it was thousands of dollars per day. Advertising Director politely asked patient's son to not personally attack short story writer when discussing discharge planning and short story writer was not getting anywhere with further discussions about discharge planning so short story writer ended conversation and left the room. Advertising Director left short story writer's contact information for the patient and family. Care Management will continue to follow. Kary Martinez RN Case Manager, Care Management Pager: [phone] 05/07/2016 3:35 PM DAIRY CATTLE FARMER Tari Rose, OT - 05/07/2016 2:57 PM CST Problem: Impaired Living Skills Goal: Maximize independence with daily living skills OT:A) Seen in room this pm.R) Pt resting in bed but agreed to OT. Pt to EOB slowly but per self. Pt able to use adaptive equipment per self after practice to doff/don socks/pants. Pt needing to use bathroom. Once IV unplugged pt able to ambulate safely into bathroom and was independent at sink with handwashing. Pt needs assist with IV pole/drain.I) Pt has declined cognitive tasks and exercises so will dc OT in hospital and defer to PT. No further OT in hospital. Smith - 05/07/2016 2:31 PM CST Care Transitions Intervention was introduced to Jennifer and family Saloni Smith [facility] Care [facility] [phone] DAIRY CATTLE FARMER Rena Martinez RN - 05/06/2016 11:10 AM CST Problem: Discharge Planning Goal: Establish appropriate post-hospitalization placement Outcome: Ongoing Care Management - Progress Note Patient's chart reviewed. Patient discussed in rounds. Anticipated Discharge Date: TBD; Patient remains with Prevana wound vac and ? If patient has insurance coverage to discharge to home with Prevana wound vac. Anticipated Discharge Needs: return to home with family support and ? Home care Plan: ID changed patient over to PO antibiotics. Patient remains with wound vac and awaiting clarification on wound vac plan; ? D/c with wound vac, awaiting Neurosurgery recommendations. PT and OT okaywith patient discharging to home with family support. Will await Neurosurgery recommendations about wound vac plan. Care Management will continue to follow. Kary Martinez RN Case Manager, Care Management Pager: [phone] 05/06/2016 11:10 AM DAIRY CATTLE FARMER Stephania Vance RN - 05/05/2016 2:22 PM CST Problem: Infection - Risk of, Surgical Site Infection Goal: Verbalizes an understanding of infection risks and prevention measures Outcome: Met this shift Cont on IV cephazolin for MSSA to surgical incision. Comments: Pain better controlled using 2 percocoets and prn flexaril. Explained need to have pain controlled in order to facilitate healing. Wound vac remains intact to lower back. Did reinforce at lower aspect d/t leak. Suction cannister changed x1. DAIRY CATTLE FARMER Sandra Quinones RN - 05/04/2016 4:51 PM CST Problem: Pressure Ulcer - Risk of Goal: Absence of pressure ulcer Outcome: Met this shift Patient is able to move herself in bed. Skin is assessed and documented every shift per protocol DAIRY CATTLE FARMER Tari Rose OT - 05/04/2016 1:50 PM CST Problem: Impaired Living Skills Goal: Maximize independence with daily living skills Outcome: Ongoing OT:A) Seen in room this am with son, Melchor present initially but left as session started. Pt doing better today, calmer and moving body with control. Pt to EOB with min assist. Pt sat on edge of bed for 20 min with good endurnace and pain managed. OT edcuated/provided pt with a dressing stick, sockaidand long handled shoehorn. Pt after multiple practices able to use equipment with occasional questions and reinforcement by OT. Pt was provided written instructions for sockaid. Pt returned to bed per self as lunch arrived and she prefers to eat while in bed. OTsetup tray, set bed alarm and provided with call light and phone.I) Pt doing better today. Cooperative and appreciative this session. Will follow up on Friday if pt not dc'd before. DC not dependent on OT. DAIRY CATTLE FARMER Lashon Carter, PT - 05/04/2016 12:21 PM CST PT Rehabilitation Services Daily Note Diagnosis: Patient admitted to [facility] on 05/01/2016 due to L5- S1 infection and encephalopathy s/p L5-S1 laminectomy and disectomy on 04/22 (performed at [facility]). Refer to Jaimee Assessment, Chart Review, and Past Medical History. ? Social History: Patient had discharged home with support from her son after recent back surgery, wasapparently doing well until 05/01 when she developed sharp increase in low back pain with fever as well. She lives in a private home with her , her son and [id number] with stairs to enter with 1 rail. There are stairs within the home with 1 rail. Patient uses no assistive device at baseline. Patient has been independent with ADLs since her surgery. Patient was seen at bedside for PT treatment session. Patient impulsive at times during session. Sonwas present and supportive. Son states there is a lot of family support at home (family is currentlycarring for patient's disabled ), and he feels confident family can support patient at home. Family owns a RW patient can use upon d/c. Patient is functioning as follows: Bed Mobility: Patient performed sit <> supine with SBA. Log roll technique. Transfers: Patient performed sit <> stand with minimal assist. Ambulation: Patient ambulated 500 feet with a rolling walker mostly CGA, occasional min A due to patient's R leg buckling due to pain. Education: Patient/family educated on progress toward goals, current impairments, safe mobility techniques and plan of care/discharge recommendations. Assessment/Plan: Patient progressed with her ambulation today and needed less assistance with moblity. Patient was impulsive at times and did not follow cues well. Patient's son states there is a lot of family support at home and he feels confident family can support patient at home. Family owns a RW the patient can use at home. Talked with patient and son about benefits of HH PT upon d/c, however patient's son states he knows his mother would not be ok with HH PT based on past experiences. Recommend d/c home with support of family when medically stable. Patient would likely benefit from HH PT, butit seems she would likely decline services. Continue with IP PT for duration of hosptialization. Patient making progress towards goals and will benefit from continued rehab. There have been 1/6 COMMUNICATIONS REPRESENTATIVE visits. DAIRY CATTLE FARMER Sandra Quinones RN - 05/03/2016 6:06 PM CST Problem: Pressure Ulcer - Risk of Goal: Absence of pressure ulcer Outcome: Met this shift Patient is able to reposition herself in bed as needed, she is able to ambulate with walker to restroom. Skin is being assessed and documented every shift per protocol. DAIRY CATTLE FARMER Mckenzie Muhammad - 05/03/2016 3:20 PM CST Physical Therapy Daily Progress Note P: Patient admitted to [facility] on 05/01/2016 due to L5-S1 infection and encephalopathy s/p L5-S1 laminectomy and disectomy on 04/22 (performed at [facility]). Refer to Jaimee Assessment, Chart Review, and Past Medical History. ? Social History: Patient had discharged home with support from her son after recent back surgery, wasapparently doing well until 05/01 when she developed sharp increase in low back pain with fever as well. She lives in a private home with her , her son and [id number] with stairs to enter with 1 rail. There are stairs within the home with 1 rail. Patient uses no assistive device at baseline. Patient has been independent with ADLs since her surgery. ?? I: Pt scheduled for department session however paged to see her at bedside. Per RN pt having difficulty with pain and mobility and is refusing to come to the PT dept. She was awake, supine in bed. She stated she is unable to rate her pain that pain scale doesn't make sense to me. Pt with IV line andwound vac. R: She was alert, seemed oriented except for stating that she was at [facility] (per pt was admitted there before coming to [facility]). Pt gasping in pain, moving eratically at times and somewhat impulsive. She did not follow cues well. Bed Mobility: Supine to sitting eob SBA/supervision with short story writer giving cues to minimize discomfort. She sat eob x5' independently. Transfers: sit <-> stand with the pt reaching for the walker and needing manual cues to push on the bed. Ambulation: She ambulated 20' x1 with the rolling walker mostly CGA but several losses of balance when seeming to have increased pain and pt gasping and needing Luke. She tended to stay too far forwardin the walker despite short story writer cues. Exercise: Supine ankle pumps and LAQ x10 each and supine small hip rolls x10 ( pt reporting decreased pain). A: Session limited due to pt behavior, pain and not following cues well. She was able to ambulate 20' with the rolling walker CGA but at times Luke. Will continue PT progressing as the pt tolerates. The next several sessions scheduled in-room vs the dept. If discharging at this time recommend TCU. COMMUNICATIONS REPRESENTATIVE 06/07 DAIRY CATTLE FARMER Tari Wiley-Anupam, OT - 05/03/2016 11:32 AM CST Problem: Impaired Living Skills Goal: Maximize independence with daily living skills Outcome: Ongoing OT:A) Seen in room this am with sonMelchor present and very involved in session. OT re-educated pt in role/goals. Pt adamently refused any cognitive screening, recalling from yesterday orientation questions. Per pt I'm here for my back, not my thinking. Pt moving quickly in bed and leaning on bedside table to re- adjust self in bed. Pt educated/encouraged to slow down movements. Pt completed a combination of dowel exercises and cardio x 8 with no pain and minimal fatigue.I) OT addressed dressing which will be assesssd SAT for AE if not dc'd before. OT not dependent on dc home with family assist/supervision. DAIRY CATTLE FARMER Rolando Fajardo RN - 05/02/2016 11:20 PM CST Problem: SAFETY Goal: *Communicates safety needs Outcome: Met this shift Patient needs anticipated , frequent checks, bed alrm and ivone on all times . No falls at this shift. Problem: Pain Goal: Exhibits reduction in pain to a level of acceptable comfort Outcome: Met this shift Reports fair pain control . Percocet 1 tablet given with some relief. DAIRY CATTLE FARMER Maricarmen Gomez - 05/02/2016 4:13 PM CST Problem: Impaired Living Skills Goal: Maximize independence with daily living skills Outcome: Ongoing Refer to consult note for specifics. Martinez RN - 05/02/2016 10:25 AM CST Problem: Discharge Planning Goal: Establish appropriate post-hospitalization placement Outcome: Ongoing Discharge Planning Initial Assessment Patients chart reviewed. Patient discussed in rounds. Patient was a direct admission from [facility] d/t [facility] having no bed availability for the patient. Admitting diagnoses: post op L-5 S-1 laminectomy/ discectomy infection. Patient had her surgery withDr. Danii Lucia at [facility] last week. Prior living situation or transferred from: Lives with family: , son, daughter in law Support prior to hospitalization: Family DME prior to admission: none Anticipated discharge needs: Continue to assess; patient stating she is feeling weak. PT recommendations helpful to assist with discharge planning. Possible barriers to discharge: plan for possbile post-op infection Advertising Director met with patient to introduce self and care management role. Patient stated she was tired andwanted to rest, so short story writer kept visit short. Advertising Director left short story writer's contact information for patient/family. Care management will continue to follow. Kary Martinez RN Case Manager, Care Management Pager: [phone] 05/02/2016 10:25 AM DAIRY CATTLE FARMER Rolando Fajardo RN - 05/01/2016 11:34 PM CST Problem: Infection - Risk of, Surgical Site Infection Goal: Demonstrates appropriate dressing change technique Outcome: Met this shift Education on wound care and dressing changes started. Problem: SAFETY Goal: *Communicates safety needs Outcome: Met this shift Patient able to make needs known , frequent checks. Problem: Pain Goal: Exhibits reduction in pain to a level of acceptable comfort Outcome: Met this shift Patient pain is well contolled at this shift. DAIRY CATTLE FARMER documented in this encounter OR Notes OR Surgeon - Danii Lucia MD - 05/09/2016 10:47 AM CST CC: Date of Service: 05/09/2016 SURGEON: Danii Lucia MD PHOTO MACHINE OPERATOR: Deepali Kline PA-C PREOPERATIVE DIAGNOSIS: Status post lumbar laminectomy with lumbar incision infection. POSTOPERATIVE DIAGNOSIS: Status post lumbar laminectomy with lumbar incision infection. PROCEDURE PERFORMED: Lumbar incision washout, culture and reclosure. HISTORY OF PRESENT ILLNESS: The patient is a 76-year-old female who underwent an uneventful laminectomy procedure. She postoperatively began to develop pain approximately two weeks after surgery and drainage from her incision. She was admitted to [facility]. It was unclear initiallyif there was an infection. A wound VAC was placed, but she continued to have pain and then ultimately a followup MRI scan was performed. It revealed a fluid collection which was aspirated and appeared to be consistent with purulent material. Given this, it was recommended to return to surgery to reopen the incision and wash out and culture the incision. The risks and benefits were reviewed with the tosha peralta and her son. At the conclusion of the discussion, she signed the informed consent and requested proceeding. OPERATIVE TECHNIQUE: After informed consent and assessment by anesthesia, the patient was taken to the operating room and placed under general endotracheal anesthesia. She was then placed prone on the OR table, making sure that her face, breasts and extremities were all adequately padded and protected. Her back was then prepped and draped in the usual sterile manner. The previous incision was opened by cutting the sutures out with Metzenbaum scissors. Upon doing this, there was purulent fluid that appeared to be within the incision. This was cultured and then suctioned out. The purulent material was scraped away from the muscle and until there was healthy-appearing muscle and fascia and exploration was carried out down to the level of the dura. That area was thoroughly inspected, washed out and then the Pulsavac was used to completely clean all of the bony and soft tissue surfaces exposed. Once this was complete, there appeared to be healthy-appearing bone, muscle, fascia and skin. Given this, it was elected to place a Hemovac drain in the epidural space and then close the incision in layers with a sterile dressing for the skin. The patient was transferred back supine, extubated and transferred to the PACU. There were no complications identified during the procedure. There was approximately 10 mL blood loss during the procedure. Dr. Danii Lucia was present for the jackson portions of the procedure and immediately available for the entire case. Physician hair assistant, Deepali Kline, assisted during the procedure. Danii Lucia MD /LD Dictation ID: [id number] DAIRY CATTLE FARMER documented in this encounter Miscellaneous Notes Med Reconciliation - Jagdeep Tripathi, Plumbing Instructor - 05/01/2016 9:27 PM STUD DAIRY CATTLE FARMER PHARMACY MEDICATION RECONCILIATION NOTE MEDICATION RECONCILIATION on admission by pharmacy has been completed. Prior to admission medications were reviewed with patient. The COMMUNICATIONS REPRESENTATIVE medication list has been updated and reflected in the chart below. Please use the COMMUNICATIONS REPRESENTATIVE medication section for ordering home doses during admission. Medication related issues including pertinent changes made to the COMMUNICATIONS REPRESENTATIVE list by pharmacy: 1. Removed Tylenol and ibuprofen. 2. Added vitamin B12. PRIOR TO ADMISSION MEDICATION LIST: Prior to Admission Medications Prescriptions Last Dose Informant Patient Reported? Taking? cyanocobalamin 500 mcg oral Tab 05/01/2016 Patient Yes Yes Sig: Take 500 mcg by mouth once daily. Facility-Administered Medications: None This patient obtains medications from [facility]. Thank you for the opportunity to participate in the care of this patient. Jagdeep Tripathi, Wool Classer Phone #:[phone] Time spent reconciling meds: 5 min DAIRY CATTLE FARMER Associated attestation - Carlos Perales Pharm D - 05/01/2016 11:07 PM STUD DAIRY CATTLE FARMER Carlos Perales, Pharm D documented in this encounter Plan of Treatment Scheduled Orders Name Type Priority Associated Diagnoses Order S chedule Aerobic (Routine) Lab Routine Once for 1 Occurrences Culture with Gram Stain star ting 05/09/2016 until 05/09/2016 Scheduled Referrals Name Type Priority Associated Diagnoses Order S chedule Follow Up Follow Up Routine Ordered: 2015 documented as of this encounter Procedures Procedure Name Priority Date/Time Associated Comments Diagnosis BASIC METAB PROFILE Routine 05/11/2016 5:16 AM Re sults for this STUD DAIRY CATTLE FARMER procedure are i n the results section. BASIC METAB PROFILE Routine 05/10/2016 5:49 AM Re sults for this STUD DAIRY CATTLE FARMER procedure are i n the results section. XR CHEST PORT LINE STAT 05/09/2016 6:28 PM Res ults for this PLACEMENT ONLY [employer] procedure are in the results section. CONSULT VASCULAR Routine 05/09/2016 6:15 PM Resul ts for this ACCESS NURSE (VAN) [employer] procedure are in the results section. CULT-ANAEROBE STAT 05/09/2016 10:22 Results fo r this AM [employer] procedure are i n the results section. CULT-FUNGUS OTHER STAT 05/09/2016 10:22 Result s for this AM [employer] procedure are i n the results section. CULT-ANAEROBIC & STAT 05/09/2016 10:22 Results for this AEROBIC (INC. GRAM AM [employer] procedure are in STAIN) the results section. CULT-AEROBIC STAT 05/09/2016 10:22 Results for this AM [employer] procedure are i n the results section. IRRIGATION AND 05/09/2016 9:54 AM DX: LUMBAR SURGICAL DEBRIDEMENT BACK [employer] SITE INFECTION BASIC METAB PROFILE Routine 05/09/2016 5:32 AM Re sults for this [employer] procedure are i n the results section. CT PUNCTURE Routine 05/08/2016 10:31 Results for this ASPIRATION AM [employer] procedure are i n ABSCESS/CYST the results section. CULT-ANAEROBE Routine 05/08/2016 9:45 AM Results for this [employer] procedure are i n the results section. CULT-ANAEROBIC & Routine 05/08/2016 9:45 AM Resul ts for this AEROBIC (INC. GRAM [employer] procedure are in STAIN) the results section. CULT-AEROBIC Routine 05/08/2016 9:45 AM Results f or this [employer] procedure are i n the results section. BASIC METAB PROFILE Routine 05/08/2016 5:17 AM Re sults for this [employer] procedure are i n the results section. PROTIME/INR Routine 05/08/2016 5:17 AM Results f or this [employer] procedure are i n the results section. BASIC METAB PROFILE Routine 05/07/2016 4:06 AM Re sults for this [employer] procedure are i n the results section. MRI SPINE LUMBAR Routine 05/06/2016 10:30 Results for this W/O[employer] CON PM [employer] procedure are i n the results section. XR CHEST AP PORT STAT 05/06/2016 12:13 Results for this PM [employer] procedure are i n the results section. BASIC METAB PROFILE Routine 05/06/2016 6:04 AM Re sults for this [employer] procedure are i n the results section. EXTRA TUBE-EDTA Routine 05/05/2016 5:10 AM [employer] BASIC METAB PROFILE Routine 05/05/2016 5:10 AM Re sults for this [employer] procedure are i n the results section. BASIC METAB PROFILE Routine 05/04/2016 7:05 AM Re sults for this [employer] procedure are i n the results section. VANCOMYCIN TROUGH Routine 05/03/2016 5:31 AM Resu lts for this [employer] procedure are i n the results section. BASIC METAB PROFILE Routine 05/03/2016 5:31 AM Re sults for this [employer] procedure are i n the results section. CULT-BLOOD NMR Routine 05/02/2016 2:23 PM Results for this [employer] procedure are i n the results section. CULT-BLOOD NMR Routine 05/02/2016 2:23 PM Results for this [employer] procedure are i n the results section. CULT-BLOOD Routine 05/02/2016 2:23 PM Results f or this [employer] procedure are i n the results section. CULT-BLOOD Routine 05/02/2016 2:23 PM Results f or this [employer] procedure are i n the results section. LIVER PROFILE Routine 05/02/2016 5:33 AM Results for this [employer] procedure are i n the results section. BASIC METAB PROFILE Routine 05/02/2016 5:33 AM Re sults for this [employer] procedure are i n the results section. CBC/DIFF Routine 05/02/2016 5:33 AM Results f or this [employer] procedure are i n the results section. EXTRA TUBE PST Routine 05/01/2016 10:36 PM [employer] LACTIC ACID Routine 05/01/2016 10:25 Results for this PM [employer] procedure are i n the results section. XR CHEST AP PORT Routine 05/01/2016 6:10 PM Resul ts for this [employer] procedure are i n the results section. CULT-BLOOD NMR Routine 05/01/2016 5:03 PM Results for this [employer] procedure are i n the results section. CULT-BLOOD NMR Routine 05/01/2016 5:03 PM Results for this [employer] procedure are i n the results section. CULT-BLOOD Routine 05/01/2016 5:03 PM Results f or this [employer] procedure are i n the results section. CULT-BLOOD Routine 05/01/2016 5:03 PM Results f or this [employer] procedure are i n the results section. EXTRA TUBE-EDTA Routine 05/01/2016 4:55 PM [employer] EXTRA TUBE PST Routine 05/01/2016 4:55 PM [employer] documented in this encounter Results (ABNORMAL) Basic Metabolic Profile (05/11/2016 5:16 AM [employer])Only the most recent of10 resultswithin the time period is included. athologist Signature SODIUM 141 136 - 145 05/11/2016 [facility] mMol/L 6:06 AM [employer] LABORATORY POTASSIUM 3.9 3.5 - 5.1 05/11/2016 [facility] mMol/L 6:06 AM [employer] LABORATORY CHLORIDE 105 98 - 112 05/11/2016 [facility] mMol/L 6:06 AM [employer] LABORATORY CARBON DIOXIDE 31 21 - 32 05/11/2016 [facility] mMol/L 6:06 AM [employer] LABORATORY BUN (UREA 4 (L) 7 - 24 05/11/2016 [facility] NITRO) mg/dL 6:06 AM [employer] LABORATORY CREATININE 0.68 0.55 - 05/11/2016 [facility] 1.02 mg/dL 6:06 AM [employer] LABORATORY EST GFR >60 >60 mL/min 05/11/2016 [facility] (CKD-EPI) 6:06 AM [employer] LABORATORY EST GFR IF >60 >60 mL/min 05/11/2016 [facility] AM 6:06 AM [employer] LABORATORY GLUCOSE 94 74 - 106 05/11/2016 [facility] mg/dL 6:06 AM [employer] LABORATORY CALCIUM, SERUM 8.5 8.5 - 10.1 05/11/2016 [facility] 6:06 AM [employer] [employer] LABORATORY ANION GAP 5.0 0.0 - 15.0 05/11/2016 [facility] mMol/L 6:06 AM [employer] LABORATORY Specimen Anatomical Collection Method Collection Time Receive d Time (Source) Location / / Volume Laterality Blood SPECIMEN / Unknown 05/11/2016 5:16 AM 03/2016 5:27 [employer] AM [employer] Janene Urrutia MD CHEMISTRY ORDERABLE Performing Organization Address City/State/ZIP Code Phon e Number [address] [address] LABORATORY [facility] [address] [place], [place] [address] XR Chest Portable (05/09/2016 6:28 PM [employer]) Anatomical Region Laterality Modality Chest Computed Radiography Specimen (Source) Anatomical Collection Method Collection Time Re ceived Time Location / / Volume Laterality 05/09/2016 6:37 PM [employer] Impressions 05/09/2016 6:38 PM [employer] IMPRESSION: No change in appearance the chest since the prior exam. Tip of PICC appears to be in good positi on in the vicinity of the caval-atrial junction. blank. Narrative 05/09/2016 6:38 PM [employer] DATE: 05/09/2016 6:37 PM CLINICAL INFORMATION: Line / Tube ICD 10: VIEWS: A single view of the chest was ob tained for the purpose of determining the position of a venous catheter. COMPARISON: May 06, 2016. FINDINGS: Mild patchy infiltrate at the lung bases consistent with mild pulmonary edema and probable small right effusion. This is similar to the prior exam. A PICC line is in place from a right arm approach. Its tip is in good postion in the vicinity of the caval-atrial junction.. Procedure Note Perico Diane MD - 05/09/2016Forma tting of this note might be different from the original. DATE: 05/09/2016 6:37 PM CLINICAL INFORMATION: Line / Tube ICD 10: VIEWS: A single view of the chest was ob tained for the purpose of determining the position of a venous catheter. COMPARISON: May 06, 2016. FINDINGS: Mild patchy infiltrate at the lung bases consistent with mild pulmonary edema and probable small right effusion. This is similar to the prior exam. A PICC line is in place from a right arm approach. Its tip is in good postion in the vicinity of the caval-atrial junction.. IMPRESSION IMPRESSION: No change in appearance the chest since the prior exam. Tip of PICC appears to be in good positi on in the vicinity of the caval-atrial junction. blank. Rolando Valladares MD XRAY ORDERABLE Consult: Vascular Access Nurse (VAN) (05/09/2016 6:15 PM [employer]) Narrative Sushil Young, RN - 05/09/2016 6:15 PM [employer] Sushil Young RN ? 05/09/2016 ??6:15 PM ? PICC INSERTION Patient Name: Jennifer Cole Ordering Physician: ??AAKASH Caicedo Indications for PICC: Custodial Therapy Consent obtained from: Patient Vascular History: none Renal okay if applicable: N/A Anesthetic: 2 ml ??Lidocaine 1% instille d interdermal Dermatotomy: Yes Number of attempts to pass catheter succ essfully to SVC: One Complications: None Comments: N/A Refer to LDA properties for bundle compl iance and device information. Sushil Young RN Mimi Caicedo PA-C VASCULAR ACCESS Culture-Anaerobe (05/09/2016 10:22 AM 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 [facility] Method Time Signature CULT-ANAEROBE No anaerobic 05/12/2016 [facility] growth 11:21 AM [employer] LABORATORY isolated in 3 days. Specimen Anatomical Collection Method Collection Time Receive d Time (Source) Location / / Volume Laterality Site-Microbiolog FLUID SPECIMEN 05/09/2016 10:22 05/09 y FROM WOUND / AM [employer] 10:46 AM [employer] Unknown Danii Lucia MD MICROBIOLOGY ORDERABLE Performing Organization Address City/[facility]/ZIP Code Phon e Number [facility] [address] [place] [address] LABORATORY [facility] Travis Mckeonle [place], [place] [address] (ABNORMAL) Culture-Aerobic (05/09/2016 10:22 AM 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 Component Value Ref Test Analysis Performed At [facility] Method Time Signature Aerobic Light growth of 05/12/2016 [facility] Culture Staphylococcus 7:11 AM [facility] aureus (A) LABORATORY Gram Stain No bacteria seen. 05/12/2016 [facility] Result 7:11 AM [facility] LABORATORY Gram Stain Few WBC's / LPF 05/12/2016 [facility] Result 7:11 AM [facility] LABORATORY Specimen Anatomical Collection Method Collection Time Receive d Time (Source) Location / / Volume Laterality Site-Microbiolog FLUID SPECIMEN 05/09/2016 10:22 05/09 y FROM WOUND / AM [employer] 10:46 AM [employer] Unknown Narrative [facility] - 05/12/2016 7 :11 AM [employer] Lumbar wound Organism Antibiotic Method Susceptibility Staphylococcus aureus Clindamycin <=0.50: Se nsitive Staphylococcus aureus Doxycycline <=0.50: Se nsitive Staphylococcus aureus Erythromycin <=0.50: Se nsitive Staphylococcus aureus Oxacillin 0.50: Sens itive Staphylococcus aureus Tetracycline <=0.50: Se nsitive Staphylococcus aureus Trimethoprim/Sulfamethoxazole <=1/19: Sensitive Danii Lucia MD MICROBIOLOGY ORDERABLE Performing Organization Address City/[facility]/ZIP [facility] Phon e Number [facility] [address] [address] LABORATORY [facility] [place], [place] [address] Fungal Culture (05/09/2016 10:22 AM [employer]) [facility] Method Time Signature Fungal Other No fungus 06/09/2016 [facility] Culture isolated. 11:00 AM [employer] LABORATORY KAYLAH No Fungal 06/09/2016 [facility] Elements 11:00 AM [employer] LABORATORY seen. Specimen Anatomical Collection Method Collection Time Receive d Time (Source) Location / / Volume Laterality Site-Microbiolog FLUID SPECIMEN 05/09/2016 10:22 05/09 y FROM WOUND / AM [employer] 10:46 AM [employer] Unknown Danii Lucia MD MICROBIOLOGY ORDERABLE Performing Organization Address City/State/ZIP Code Phon e Number [facility] [address] [place] [address] LABORATORY [facility] [address] [place], [place] [address] CT PUNCTURE ASPIRATION ABSCESS/CYST (05/08/2016 10:31 AM [employer]) Anatomical Region Laterality Modality Breast Computed Tomography Specimen (Source) Anatomical Collection Method Collection Time Re ceived Time Location / / Volume Laterality 05/08/2016 11:44 AM [employer] Impressions 05/08/2016 11:49 AM [employer] IMPRESSION: CT-guided aspiration of small dorsal lumbar fluid collection. Specimen sent to laboratory for culture. Narrative 05/08/2016 11:49 AM [employer] EXAM: CT-guided fluid aspiration. 05/08/2016 8:03 AM. CLINICAL DATA: Nonspecific subcutaneous postoperative fluid collection lower lumbar region. TECHNIQUE: Procedure and risks were exam ined in detail to the patient. Questions were answered and informed consent was obtained. Patient identification and timeout was performed. Under sterile conditio ns, and using CT guidance, a 18-gauge ne edle was advanced into the fluid collection posterior to the L4-5 spinous processes. A small sample of foul- smelling bloody fluid was obtained and sent to the lab oratory for analysis. There were no appa rent complications. Procedure Note Tomás Poe MD - 05/08/2016Formatt ing of this note might be different from the original. EXAM: CT-guided fluid aspiration. 016 8:03 AM. CLINICAL DATA: Nonspecific subcutaneous postoperative fluid collection lower lumbar region. TECHNIQUE: Procedure and risks were exam ined in detail to the patient. Questions were answered and informed consent was obtained. Patient identification and timeout was performed. Under sterile conditions, and using CT guidance, a 18-gauge needle was advanced into the fluid collection posterior to the L4-5 spinous processes. A small sample of foul-smelling bloody fluid was obtained and sent to the laboratory for analysis. There were no apparent complic ations. IMPRESSION IMPRESSION: CT-guided aspiration of smal l dorsal lumbar fluid collection. Specimen sent to laboratory for culture. Deepali Kline PA-C CT ORDERABLE Protime / INR (05/08/2016 5:17 AM [employer]) athologist Signature PROTIME 12.5 10.0 - 13.0 05/08/2016 [facility] sec. 5:50 AM [employer] LABORATORY INR 1.1 1.0 - 1.2 05/08/2016 [facility] 5:50 AM [employer] LABORATORY Specimen Anatomical Collection Method Collection Time Receive d Time (Source) Location / / Volume Laterality Blood 05/08/2016 5:17 AM 6 5:36 [employer] AM [employer] Deepali Kline PA-C COAGULATION ORDERABLE Performing Organization Address City/State/ZIP Code Phon e Number [place] [id number] [place] [address] LABORATORY [facility] [address] [place], [place] [address] MRI SPINE LUMBAR WO & W IV CONTRAST (05/06/2016 10:30 PM [employer]) Anatomical Region Laterality Modality Spine Magnetic Resonance Specimen (Source) Anatomical Collection Method Collection Time Re ceived Time Location / / Volume Laterality 05/06/2016 10:39 PM [employer] Impressions 05/06/2016 10:54 PM [employer] IMPRESSION: 1. ??At L5-S1, interval midline laminect isak. Small residual marginally enhancing postoperative fluid collection in the subcutaneous fat at L5 and S1, extending to the L5 laminectomy site and measuring 3 .2 x 3.8 x 4.5 cm. Adjacent more diffuse paraspinal soft tissue enhancement. Appears is concerning for an infected postoperative fluid collection. 2. ??At L5-S1, mild residual circumferen tial disc bulging without displacement or impingement of traversing S1 nerve roots. Presumed postoperative epidural enhancement circumferential to the traversing S1 nerve roots, right greater than left. 3. ??Moderate bilateral L5-S1 neural for aminal stenosis without deformity of the exiting nerve roots, stable. 4. ??Unchanged mild lumbar disc degenera tion at L4-5 without central canal stenosis. Stable mild bilateral L4-5 neural foraminal stenosis. Narrative 05/06/2016 10:54 PM [employer] EXAM: ??MRI SPINE LUMBAR W/O & W CONTR CLINICAL DATA: Post Op within 10 years. ??L5-S1 discectomy 2016, low back pain with fever, increased drainage. ICD 10: COMPARISON: MRI 08/08/2013 TECHNIQUE: Sagittal FLAIR T1 pre and pos t gadolinium, sagittal FSE T2, sagittal STIR, axial fat-saturated FSE T2, axial T1 pre and post gadolinium. ??15 cc of Omniscan intravenously administered. ?? FINDINGS: 5 lumbar vertebrae are assumed . ??Lumbar vertebrae are normal in height and alignment. Mild marrow edema along the L5 and S1 pedicles bilaterally, new at left L5 but otherwise stable elsewhere . Vertebral height is maintained. Mild i ntervertebral disc desiccation and vacuum disc phenomenon at L5-S1 are unchanged. Mild intervertebral disc desiccation from L1 L2-L5 S1 is again noted. Distal tho racic spinal cord and conus medullaris, terminating at the L2 level, are normal-appearing. Interval L5 laminectomy is seen. Residua l dorsal paraspinal fluid collection centered at L5-S1 extends to the laminectomy site of L5, measuring in greatest dimension 3.2 cm AP by 3.8 cm transverse by 4. 5 cm craniocaudally. Marginal enhancemen t of this fluid collection is concerning for superimposed infection. No intrathecal arachnoiditis is apparent. L5-S1: Interval dorsal laminectomy. Mild residual circumferential disc bulging without mass effect on the traversing S1 nerve roots. No central canal stenosis. Prominent facet arthrosis bilaterally. Mod erate neural foraminal stenosis bilatera lly, right greater than left, from inferior foraminal disc extension and vertical foraminal height loss, stable. No deformity of the exiting nerve roots. L4-5: Minimal disc bulging. Flattening o f the ventral thecal sac. Stable small right paracentral annular degeneration. Mild facet and moderate dorsal ligamentous hypertrophy. No central canal stenosis. Mild inferior foraminal stenosis bilater ally from inferior foraminal disc extension, without deformity of the exiting nerve roots. Stable. L3-4, L2-3, L1-L2: No focal disc herniat ion. Patent central canal and neural foramina. Stable. Procedure Note Myron Martinez MD - 05/06/2016Form atting of this note might be different from the original. EXAM: MRI SPINE LUMBAR W/O & W CONTR CLINICAL DATA: Post Op within 10 years. L5-S1 discectomy 2016, low back pain with fever, increased drainage. ICD 10: COMPARISON: MRI 08/08/2013 TECHNIQUE: Sagittal FLAIR T1 pre and pos t gadolinium, sagittal FSE T2, sagittal STIR, axial fat-saturated FSE T2, axial T1 pre and post gadolinium. 15 cc of Omniscan intravenously administered. FINDINGS: 5 lumbar vertebrae are assumed . Lumbar vertebrae are normal in height and alignment. Mild marrow edema along the L5 and S1 pedicles bilaterally, new at left L5 but otherwise stable elsewhere. Vertebral height is maintained. Mild intervertebra l disc desiccation and vacuum disc phenomenon at L5-S1 are unchanged. Mild intervertebral disc desiccation from L1 L2-L5 S1 is again noted. Distal thoracic spinal cord and conus medullaris, terminating at the L2 level, are normal-appearing. Interval L5 laminectomy is seen. Residua l dorsal paraspinal fluid collection centered at L5-S1 extends to the laminectomy site of L5, measuring in greatest dimension 3.2 cm AP by 3.8 cm transverse by 4.5 cm craniocaudally. Marginal enhancement of this fluid collection is concerning for superimposed infection. No intrathecal arachnoiditis is apparent. L5-S1: Interval dorsal laminectomy. Mild residual circumferential disc bulging without mass effect on the traversing S1 nerve roots. No central canal stenosis. Prominent facet arthrosis bilaterally. Moderate neural foraminal stenosis bilaterally, right gr eater than left, from inferior foraminal disc extension and vertical foraminal height loss, stable. No deformity of the exiting nerve roots. L4-5: Minimal disc bulging. Flattening o f the ventral thecal sac. Stable small right paracentral annular degeneration. Mild facet and moderate dorsal ligamentous hypertrophy. No central canal stenosis. Mild inferior foraminal stenosis bilaterally from infe rior foraminal disc extension, without deformity of the exiting nerve roots. Stable. L3-4, L2-3, L1-L2: No focal disc herniat ion. Patent central canal and neural foramina. Stable. IMPRESSION IMPRESSION: 1. At L5-S1, interval midline laminectom y. Small residual marginally enhancing postoperative fluid collection in the subcutaneous fat at L5 and S1, extending to the L5 laminectomy site and measuring 3.2 x 3.8 x 4.5 cm. Adjacent more diffuse paraspinal soft ti ssue enhancement. Appears is concerning for an infected postoperative fluid collection. 2. At L5-S1, mild residual circumferenti al disc bulging without displacement or impingement of traversing S1 nerve roots. Presumed postoperative epidural enhancement circumferential to the traversing S1 nerve roots, right greater than left. 3. Moderate bilateral L5-S1 neural ingrid inal stenosis without deformity of the exiting nerve roots, stable. 4. Unchanged mild lumbar disc degenerati on at L4-5 without central canal stenosis. Stable mild bilateral L4-5 neural foraminal stenosis. Deepali Kline PA-C MRI ORDERABLE XR CHEST AP PORT (05/06/2016 12:13 PM 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 Anatomical Region Laterality Modality Chest Computed Radiography Specimen (Source) Anatomical Collection Method Collection Time Re ceived Time Location / / Volume Laterality 05/06/2016 12:56 PM [employer] Impressions 05/06/2016 12:58 PM [employer] IMPRESSION: Patchy bibasilar pulmonary opacities in noted consistent with bibasilar consolidation and/or atelectasis. Narrative 05/06/2016 12:58 PM [employer] EXAM: ??SINGLE PORTABLE SEMI-UPRIGHT AP VIEW CHEST : 05/06/2016 at 1210 hours COMPARISON: 05/01/2016 CLINICAL DATA: Shortness of breath. VIEWS: A single portable view of the rima st was obtained. FINDINGS: The cardiac configuration is stable. The pulmonary vasculature is within normal limits for this portable semiupright AP technique. Patchy opacities are noted within the lung bases consistent with bibasi lar consolidation versus atelectasis. No evidence of a pleural effusion or pneumothorax. Procedure Note Peer Financial Counselor, Anup Walker MD - 05/06/2016Formattin g of this note might be different from the original. EXAM: SINGLE PORTABLE SEMI-UPRIGHT AP EW CHEST : 05/06/2016 at 1210 hours COMPARISON: 05/01/2016 CLINICAL DATA: Shortness of breath. VIEWS: A single portable view of the rima st was obtained. FINDINGS: The cardiac configuration is stable. The pulmonary vasculature is within normal limits for this portable semiupright AP technique. Patchy opacities are noted within the lung bases consistent with bibasilar consolidation versus atelectasis. No evidence of a ple ural effusion or pneumothorax. IMPRESSION IMPRESSION: Patchy bibasilar pulmonary opacities in noted consistent with bibasilar consolidation and/or atelectasis. Edita Camacho MD XRAY ORDERABLE Extra Tube-EDTA (Lab Use Only) (05/05/2016 5:10 AM 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 Specimen Anatomical Collection Method Collection Time Receive d Time (Source) Location / / Volume Laterality Blood 05/05/2016 5:10 AM 6 5:35 [employer] AM [employer] Janene Urrutia MD HEMATOLOGY ORDERABLE Performing Organization Address City/[facility]/ZIP Code Phon e Number [facility] [address] [place] [address] LABORATORY (ABNORMAL) Vancomycin - Trough (05/03/2016 5:31 AM [employer]) Analysis Performed At Patho logist Time Signature VANCOMYCIN 7.1 (L) 10.0 - 05/03/2016 [facility] TROUGH 20.0 ug/mL 8:53 AM [employer] LABORATORY Comment: 15-20 ug/mL is the suggested re ference range for complicated infections. Specimen Anatomical Collection Method Collection Time Receive d Time (Source) Location / / Volume Laterality Blood 05/03/2016 5:31 AM 6 5:55 [facility] AM [employer] [employer] Manuela Fernandez D CHEMISTRY ORDERABLE Performing Organization Address City/State/ZIP Code Phon e Number [facility] [address] [place] [address] LABORATORY [facility] [address] [place], [place] [address] Cult-Blood NMR (lab use only) (05/02/2016 2:23 PM STUD [employer]Y [employer]LE [employer]ER)Only the most recent of4 resultswithin the time period is included. Patholo gist Method Time Signature Blood Culture No growth 5 05/08/2016 [facility] L days. 7:29 AM [employer] LABORATORY Specimen Anatomical Collection Method Collection Time Receive d Time (Source) Location / / Volume Laterality Blood 05/02/2016 2:23 PM 6 3:04 [employer] PM [employer] Rolando Valladares MD MICROBIOLOGY ORDERABLE Performing Organization Address City/State/ZIP Code Phon e Number [facility] [address] [place] [address] LABORATORY [facility] [address] [place], [place] [address] (ABNORMAL) Liver Profile (05/02/2016 5:33 AM STUD [employer]Y CATTLE [employer]ER) Analysis Performed At Patho logist Time Signature ALT 53 12 - 68 05/02/2016 [facility] IU/L 2:16 PM [employer] LABORATORY ALKALINE 71 45 - 117 05/02/2016 [facility] P'TASE IU/L 2:16 PM [employer] [employer] LABORATORY AST (SGOT) 32 12 - 37 05/02/2016 [facility] IU/L 2:16 PM [employer] LABORATORY PROTEIN TOTAL 5.6 (L) 6.4 - 8.2 05/02/2016 [facility] g/dL 2:16 PM [employer] LABORATORY ALBUMIN 2.9 (L) 3.4 - 5.0 05/02/2016 [facility] g/dL 2:16 PM [employer] LABORATORY BILIRUBIN-DIRE 0.50 (H) 0.05 - 05/02/[address] [facility] [address] 0.24 mg/dL 2:16 PM [employer]UD [employer] LABORATORY BILIRUBIN-TOTA 1.5 (H) 0.2 - 1.0 05/02/2016 [facility] L mg/dL 2:16 PM [employer] LABORATORY Specimen Anatomical Collection Method Collection Time Receive d Time (Source) Location / / Volume Laterality Blood 05/02/2016 5:33 AM 6 5:58 [employer] AM ST[employer]ER Rolando Valladares MD CHEMISTRY ORDERABLE Performing Organization Address City/State/ZIP Code Phon e Number [facility] [address] [place] [address] LABORATORY [facility] [address] [place], [place] [address] (ABNORMAL) CBC / Diff (05/02/2016 5:33 AM STUD [employer]ER) Patholo gist Method Time Signature WBC 9.2 4.3 - 10.8 05/02/2016 [facility] K/uL 6:18 AM [employer] LABORATORY RBC 3.60 (L) 4.20 - 05/02/2016 [facility] 5.40 M/uL 6:18 AM [employer] LABORATORY HEMOGLOBIN 11.1 (L) 12.0 - 05/02/2016 [facility] 16.0 gm/dL 6:18 AM [employer]UD [employer] LABORATORY HEMATOCRIT 35.3 (L) 36.0 - 05/02/2016 [facility] 48.0 % 6:18 AM [employer]UD [employer] LABORATORY MCV 98 80 - 100 05/02/2016 [facility] fl 6:18 AM STUD [employer]Y [employer] LABORATORY MCH 31 27 - 33 pg 05/02/2016 [facility] 6:18 AM [employer] LABORATORY MCHC 31 (L) 33 - 36 05/02/2016 [facility] gm/dL 6:18 AM STUD [employer] LABORATORY RDW 12.6 11.5 - 05/02/2016 [facility] 14.5 % 6:18 AM [employer] LABORATORY PLATELET COUNT 187 150 - 400 05/02/2016 [facility] K/uL 6:18 AM [employer] LABORATORY MPV 11.4 6.5 - 12.0 05/02/2016 [facility] 6:18 AM [employer] LABORATORY PMN % 75.4 % 05/02/2016 [facility] 6:18 AM [employer] [employer] LABORATORY IG% 0.3 <=1.0 % 05/02/2016 [facility] 6:18 AM [employer] LABORATORY LYMPH % 15.5 % 05/02/2016 [facility] 6:18 AM [employer] LABORATORY MONO % 7.7 % 05/02/2016 [facility] 6:18 AM [employer] LABORATORY EOS % 0.9 % 05/02/2016 [facility] 6:18 AM [employer] LABORATORY BASO % 0.2 % 05/02/2016 [facility] 6:18 AM [employer] LABORATORY PMN ABSOLUTE 6.96 1.80 - 05/02/2016 [facility] 7.80 K/uL 6:18 AM [employer] LABORATORY IG ABSOLUTE 0.03 K/uL 05/02/2016 [facility] 6:18 AM [employer] LABORATORY LYMPH ABSOLUTE 1.43 1.00 - 05/02/2016 [facility] 4.00 K/uL 6:18 AM [employer] LABORATORY MONO ABSOLUTE 0.71 0.00 - 05/02/2016 [facility] 1.00 K/uL 6:18 AM [employer] LABORATORY EOS ABSOLUTE 0.08 0.00 - 05/02/2016 [facility] 0.45 K/uL 6:18 AM [employer] LABORATORY BASO ABSOLUTE 0.02 0.00 - 05/02/2016 [facility] 0.20 K/ul 6:18 AM [employer] LABORATORY NUCL RBC % 0.0 0.0 - 0.0 05/02/2016 [facility] /100 WBC 6:18 AM STUD [employer] LABORATORY NUCL RBC 0.00 K/uL 05/02/2016 [facility] ABSOLUTE 6:18 AM ST[employer] LABORATORY Specimen Anatomical Collection Method Collection Time Receive d Time (Source) Location / / Volume Laterality Blood 05/02/2016 5:33 AM 6 5:59 ST[employer]ER AM STUD [employer]ER Janene Urrutia MD HEMATOLOGY ORDERABLE Performing Organization Address City/State/ZIP Code Phon e Number [facility] [address] [place] [address] LABORATORY [facility] [address] [place] [address] Extra Tube PST (Lab Use Only) (05/01/2016 10:36 PM 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) P athologist Signature LACTIC ACID 0.7 0.7 - 2.1 05/01/2016 [facility] mMol/L 10:36 PM STUD [employer] LABORATORY Specimen Anatomical Collection Method Collection Time Receive d Time (Source) Location / / Volume Laterality Blood 05/01/2016 10:25 05/01/2016 PM [employer]ER 10:34 PM STUD [employer]ER Janene Urrutia MD CHEMISTRY ORDERABLE Performing Organization Address City/State/ZIP Code Phon e Number [facility] [address] [place] [address] LABORATORY [facility] LABORATORY [address] [address] documented in this encounter Visit Diagnoses Diagnosis Staphylococcal infection - Primary Unspecified staphylococcus infection in conditions classified elsewhere and of unspecified site Post-operative infection Other postoperative infection Sepsis (HCC) Encephalopathy Encephalopathy, unspecified documented in this encounter Administered Medications Inactive Administered Medications - up to 3 most recent administrations Medication Order MAR Action Action Date Dose Rate Site saline FLUSH syringe 10 mL Given 05/06/2016 10:22 PM STUD [employer]LE [employer]ER 10 mL 10 mL, Intravenous, INTRA-PROCEDURE ONE TIME DOSE NEEDED, 1 dose, Starting on 05/06/16 at 2214, Until Fri05/06/16 at 2222, Line Care, per procedure saline FLUSH syringe 10 mL Given 05/11/2016 5:05 AM STUD [employer]ER 10 mL 10 mL, Intra-Catheter, EVERY 8 HOURS, First dose on Shannon 05/09/16 at 2200, Until Discontinued Given 05/10/2016 9:27 PM STUD [employer]ER 10 mL Given 05/10/2016 2:56 PM STUD [employer] F[employer]ER 10 mL saline FLUSH syringe 10-20 mL Given 05/10/2016 10:15 AM STUD [employer] F[employer]ER 10 mL 10-20 mL, Intra-Catheter, NEEDED, Starting on Shannon 05/09/16 at 1750, Until 05/11/16 at 1639, Line Care, for PICC or Midline Line Care saline FLUSH syringe 5 mL Given 05/11/2016 5:06 AM STUD [employer]ER 5 mL 5 mL, Intravenous, EVERY 8 HOURS, First dose on Fri05/01/16 at 1615, Until Discontinued Given 05/10/2016 5:57 AM STUD [employer]ER 5 mL Given 05/08/2016 3:02 PM STUD [employer]LE F[employer]ER 5 mL saline FLUSH syringe 5 mL Given 05/10/2016 8:08 AM STUD [employer]LE F[employer]ER 5 mL 5 mL, Intravenous, NEEDED, Starting on Fri05/01/16 at 1559, Until 05/11/16 at 1639, Line Care Given 05/09/2016 8:49 AM STUD [employer]ER 5 mL Right Arm Given 05/06/2016 8:21 AM STUD [employer] C[employer]LE F[employer]ER 10 mL saline FLUSH syringe 5 mL Given 05/11/2016 5:06 AM STUD [employer] C[employer]LE F[employer]ER 5 mL 5 mL, Intravenous, EVERY 8 HOURS, First dose on Shannon 05/09/16 at 1400, Until Discontinued Given 05/10/2016 9:27 PM STUD [employer] C[employer]LE F[employer]ER 5 mL Given 05/10/2016 6:00 AM STUD [employer]LE [employer]ER 5 mL saline FLUSH syringe 5 mL Given 05/10/2016 9:01 AM STUD [employer]LE [employer]ER 5 mL 5 mL, Intravenous, NEEDED, Starting on Shannon 05/09/16 at 0911, Until 05/11/16 at 1639, Line Care acetaminophen (TYLENOL) tablet 325-650 m g Given 05/11/2016 1:34 AM STUD [employer]ER 650 mg 325-650 mg (1-2 tablet), oral, EVERY 4 HOURS NEEDED, Starting on Fri05/01/16 at 1603, Until 05/11/16 at 1639, fever, pain Given 05/09/2016 6:31 AM [employer]ER 650 mg Given 05/08/2016 1:52 PM STUD [employer]ER 650 mg ampicillin/sulbactam ( UNASYN ) 1.5 g in New Bag 05/10/2016 8:57 A M [employer] 1.5 g sodium chloride 0.9% 100 mL IV piggyback 1.5 g, Intravenous, EVERY 6 HOURS (NS), First dose on Fri05/06/16 at 1500, Until Discontinued, Administer over 60 Minutes New Bag 05/10/2016 2:48 AM STUD [employer]ER 1.5 g New Bag 05/09/2016 9:51 PM STUD [employer]ER 1.5 g bisacodyl (DULCOLAX) delayed released tablet 5 Given 1 07/12/2015 8:19 AM STUD [employer]ER 5 mg mg 5 mg, oral, DAILY, First dose on Fri05/06/16 at 1445, Until Discontinued Given 05/08/2016 10:50 AM STUD [employer]ER 5 mg Given 05/07/2016 8:56 AM STUD [employer]ER 5 mg bisacodyl (DULCOLAX) delayed released tablet Given 11/2015 10:43 AM STUD [employer] C[employer]LE F[employer]ER 15 mg 5-15 mg 5-15 mg, oral, DAILY NEEDED, Starting on Fri05/01/16 at 1600, Until 05/11/16 at 1639, constipation Given 05/05/2016 8:36 PM STUD [employer]ER 15 mg Given 05/04/2016 5:18 AM STUD [employer]LE [employer]ER 10 mg ceFAZolin ( ANCEF) 2 g in iso-osmotic dextrose New Bag 1 07/07/2015 8:30 AM STUD [employer]ER 2 g 50 mL IV piggyback 2 g, Intravenous, EVERY 8 HOURS (NS), First dose on Fri05/03/16 at 1630, Until Discontinued, Administer over 30 Minutes New Bag 05/06/2016 12:10 AM STUD [employer]ER 2 g New Bag 05/05/2016 3:53 PM STUD [employer]LE F[employer]ER 2 g ceFAZolin ( ANCEF) 2 g in iso-osmotic dextrose New Bag 1 07/12/2015 5:05 AM STUD [employer]LE F[employer]ER 2 g 50 mL IV piggyback 2 g, Intravenous, EVERY 8 HOURS (NS), First dose on Fri05/10/16 at 1300, Until Discontinued, Administer over 30 Minutes New Bag 05/10/2016 8:55 PM STUD [employer]ER 2 g New Bag 05/10/2016 2:56 PM STUD [employer]ER 2 g cephalexin (KEFLEX) capsule 500 mg Given 05/06/2016 12:36 PM STUD [employer]ER 500 mg 500 mg, oral, FOUR TIMES A DAY, First dose on Fri05/06/16 at 1200, Until Discontinued cyclobenzaprine (FLEXERIL) tablet 5 mg Given 05/06/2016 4:01 PM STUD [employer]ER 5 mg 5 mg, oral, EVERY 8 HOURS NEEDED, Starting on Fri05/01/16 at 2044, Until 05/11/16 at 1639, muscle spasm Given 05/06/2016 8:21 AM [employer] 5 mg Given 05/05/2016 8:36 PM STUD [employer]ER 5 mg fentaNYL (SUBLIMAZE) injection 25-50 mcg Given 05/09/2016 11:30 AM STUD [employer]ER 50 mcg 25-50 mcg, Intravenous, EVERY 5 MINUTES NEEDED, Starting on Shannon 05/09/16 at 1039, Until Shannon 05/09/16 at 1203, Phase 1/2, for acute surgical pain Given 05/09/2016 11:18 AM STUD [employer] 50 mcg gadodiamide (OMNISCAN) 287 mg/mL syringe 15 Given 05/06/2016 10:22 PM STUD [employer]ER 15 mL mL 15 mL, Intravenous, INTRA-PROCEDURE ONE TIME DOSE NEEDED, 1 dose, Starting on Fri05/06/16 at 2213, Until Fri05/06/16 at 2222, per procedure heparin injection 5,000 Units Given 05/08/2016 9:00 PM STUD [employer]ER 5,000 Units Abdom en 5,000 Units, Subcutaneous, EVERY 8 HOURS, First dose on Fri05/01/16 at 2200, Until Discontinued Given 05/08/2016 3:01 PM STUD [employer] 5,000 Units Abdom en Given 05/07/2016 9:28 PM STUD [employer]ER 5,000 Units Abdom en heparin injection 5,000 Units Given 05/11/2016 7:09 AM STUD [employer]ER 5,000 Units Abdom en 5,000 Units, Subcutaneous, EVERY 8 HOURS, First dose (after last modification) on Fri05/10/16 at 0600, Until Discontinued Given 05/10/2016 9:26 PM STUD [employer]ER 5,000 Units Abdom en Given 05/10/2016 2:55 PM STUD [employer]ER 5,000 Units Abdom en HYDROmorphone (DILAUDID) syringe 0.2-0.4 mg Given 05/09/2016 11:28 AM STUD [employer]ER 0.2 mg 0.2-0.4 mg, Intravenous, EVERY 5 MINUTES NEEDED, 5 doses, Starting on Shannon 05/09/16 at 1039, Until Shannon 05/09/16 at 1203, Phase 1/2, for post acute pain management while in recovery area. Given 05/09/2016 11:22 AM STUD [employer]LE [employer]ER 0.4 mg Given 05/09/2016 11:18 AM STUD [employer]ER 0.4 mg HYDROmorphone (DILAUDID) syringe 0.5-1 m g Given 05/10/2016 8:06 AM STUD [employer]ER 0.5 mg 0.5-1 mg, Intravenous, EVERY 4 HOURS NEEDED, Starting on Fri05/01/16 at 1603, Until 05/11/16 at 1639, Severe Pain Given 05/08/2016 7:43 AM ST[employer] 0.5 mg Given 05/08/2016 4:26 AM ST[employer] 0.5 mg HYDROmorphone (DILAUDID) tablet 1 mg Given 05/11/2016 10:33 AM STUD [employer]LE F[employer]ER 1 mg 1 mg, oral, EVERY 4 HOURS NEEDED, Starting on 05/06/16 at 1438, Until 05/11/16 at 1639, pain Given 05/11/2016 1:35 AM [employer] 1 mg Given 05/10/2016 7:41 PM STUD [employer]LE [employer]ER 1 mg hydrOXYzine pamoate (VISTARIL) capsule 25-50 Given 01/2016 11:18 AM STUD [employer]ER 50 mg mg 25-50 mg, oral, ONCE NEEDED, 1 dose, Starting on Shannon 05/09/16 at 1039, Until Shannon 05/09/16 at 1118, Phase 1/2, for augmentation of narcotic based analgesia while in recovery area. lactated ringers (LR) IV New Bag 05/09/2016 11:30 AM STUD [employer]ER 100 mL/hr 100 mL/hr infusion at 100 mL/hr, Intravenous, CONTINUOUS, Starting on Shannon 05/09/16 at 1045, Until Shannon 05/09/16 at 1203, Phase 1/2 lidocaine 1% (XYLOCAINE) injection Given 05/09/2016 8:49 AM ST[employer] 0.1 mL Right Arm 0.1-0.3 mL 0.1-0.3 mL, Intradermal, NEEDED, Starting on Fri05/01/16 at 1559, Until 05/11/16 at 1639, IV start or restart Given 05/06/2016 1:20 AM STUD [employer] 0.2 mL Left Forearm Given 05/04/2016 10:26 AM STUD [employer]ER 0.2 mL Righ t Arm lidocaine 1% (XYLOCAINE) injection 1-3 m L 1-3 mL, Intradermal, NEEDED, Starting on Shannon 05/09/16 at 1750, Until 05/11/16 at 1639, IV start or restart of PICC or MIDLINE cathet er LORazepam (ATIVAN) injection (conc: 2 mg/mL) 1 Given 1 07/07/2015 9:25 PM STUD [employer]ER 1 mg mg 1 mg, Intravenous, EVERY 4 HOURS NEEDED, Starting on 05/06/16 at 1959, Until 05/11/16 at 1639, anxiety, agitation, sleep, for shortness of breath magnesium hydroxide (MILK OF MAGNESIA) Given 05/05/2016 12:56 PM STUD [employer]ER 30 mL suspension 30 mL 30 mL, oral, DAILY NEEDED, Starting on Fri05/01/16 at 1600, Until 05/11/16 at 1639, constipation, if no response after polyethylene glycol. Given 05/04/2016 8:24 AM [employer] 30 mL ondansetron (ZOFRAN) disintegrating tablet 4-8 Given 1 07/09/2015 10:50 AM ST[employer]ER 4 mg mg 4-8 mg, oral, EVERY 8 HOURS NEEDED, Starting on Fri05/01/16 at 1600, Until 05/11/16 at 1639, nausea & vomiting Given 05/04/2016 7:24 PM [employer] 8 mg Given 05/02/2016 12:10 PM [employer]ER 4 mg ondansetron (ZOFRAN) injection 4-8 mg Given 05/09/2016 2:56 AM ST[employer]ER 4 mg 4-8 mg, Intravenous, EVERY 8 HOURS NEEDED, Starting on Fri05/01/16 at 1600, Until 05/11/16 at 1639, nausea & vomiting Given 05/07/2016 10:54 AM [employer]ER 4 mg Given 05/04/2016 3:30 AM STUD [employer]ER 4 mg oxyCODONE-acetaminophen (PERCOCET) tablet Given 2015 12:36 PM STUD [employer]ER 1 tablet 1-2 tablet 1-2 tablet, oral, EVERY 4 HOURS NEEDED, Starting on Fri05/01/16 at 1603, Until 05/06/16 at 1435, pain Given 05/05/2016 10:04 PM [employer] 1 tablet Given 05/05/2016 1:41 PM STUD [employer] F[employer]ER 1 tablet piperacillin-tazobactam ( ZOSYN ) 3.375 g New Bag 2015 8:08 AM STUD [employer]LE [employer]ER 3.375 g in sodium choride 0.9% 100 mL IV piggyback - extended infusion 3.375 g, Intravenous, EVERY 8 HOURS, First dose on Fri05/01/16 at 1645, Until Discontinued New Bag 05/03/2016 12:52 AM [employer]ER 3.375 g New Bag 05/02/2016 5:17 PM [employer]UD [employer]ER 3.375 g polyethylene glycol (MIRALAX) packet 17 g Given 05/07/2016 10:43 AM ST[employer] F[employer]ER 17 g 17 g, oral, DAILY NEEDED, Starting on Fri05/01/16 at 1600, Until 05/11/16 at 1639, constipation, if no response to bisacodyl 15mg. Given 05/05/2016 8:13 AM [employer]ER 17 g saline with benzyl alcohol injection 0.1 -0.3 mL 0.1-0.3 mL, Intradermal, NEEDED, Starting on Shannon at 0911, Until 05/11/16 at 1639, IV start or restart senna (SENOKOT) tablet 1-2 tablet Given 05/11/2016 8:19 AM [employer] 2 tablets 1-2 tablet, oral, TWICE A DAY, First dose on Fri05/01/16 at 2000, Until Discontinued Given 05/10/2016 7:41 PM [employer]UD [employer]ER 1 tablet Given 05/08/2016 8:35 PM STUD [employer]ER 2 tablets simethicone (MYLICON) chewable tablet 80-160 Given 02/2016 8:56 AM [employer] F[employer]ER 160 mg mg 80-160 mg (1-2 tablet), oral, EVERY 6 HOURS NEEDED, Starting on Fri05/06/16 at 2048, Until 05/11/16 at 1639, flatulence Given 05/08/2016 8:35 PM [employer] 160 mg Given 05/07/2016 9:15 AM [employer] 160 mg sodium chloride 0.9 % IV New Bag 05/06/2016 2:04 PM STUD [employer]ER 100 mL/hr 100 mL/hr solution at 100 mL/hr, Intravenous, CONTINUOUS, Starting on Fri05/01/16 at 1800, Until Fri05/06/16 at 2051 New Bag 05/05/2016 3:16 PM [employer] 100 mL/hr 100 mL/hr New Bag 05/05/2016 3:34 AM [employer] 100 mL/hr 100 mL/hr sodium chloride 0.9 % IV solution New Bag 05/09/2016 6:31 AM [employer] 75 mL/hr 75 mL/hr at 75 mL/hr, Intravenous, CONTINUOUS, Starting on Fri05/06/16 at 2100, Until 05/11/16 at 1639 New Bag 05/08/2016 4:00 PM [employer] 75 mL/hr 75 mL/hr New Bag 05/07/2016 10:37 PM [employer] 75 mL/hr 75 mL/hr sodium phosphates (FLEET) rectal enema 1 Given 05/05/2016 9:56 A M [employer] 1 enema enema 1 enema, Rectal, DAILY NEEDED, Starting on Fri05/01/16 at 1600, Until 05/11/16 at 1639, constipation, if no response after magnesium hydroxide. vancomycin (VANCOCIN) 1,250 mg in sodium New Bag 016 5:43 AM [employer]UD [employer]LE [employer] 1,250 mg chloride 0.9 % 250 mL IV piggyback 1,250 mg (rounded from 1,156 mg = 20 mg/kg ? 57.8 kg Adjusted weight), Intravenous, EVERY 24 HOURS (NS), First dose on Shannon 05/02/16 at 0600, Until Discontinued New Bag 05/02/2016 6:53 AM [employer] 1,250 mg documented in this encounter Active and Recently Administered Medications Times are shown in STUD [employer]Y [employer]LE [employer]ER. Scheduled Medication Order 05/09/2016 05/10/2016 05/11/2016 saline FLUSH syringe 10 mL 2200 (Given - Provider: Evelin Correa RN) 0557 (Given - Provider: Maximo Montez RN)1456 (Given - Provider: Gracia Young RN)2126 (Given - Provider: Rolando Fajardo RN) 0505 (Given - Provider: Viktoria Chino RN) 10 mL, Intra-Catheter, EVERY 8 HOURS, Fi rst dose on Fri05/09/16 at 2200, Until Discontinued saline FLUSH syringe 5 mL 0600 (Not Given - Provider : Maximo Montez RN - Reason: Clinically appropriate (comment) - Comment: IVF Infusing)1400 (Not Given - Provider: Verito Heart RN - Reason: Clinically appropriate (comment) - Comment: IVF infusing) 0557 (Given - Provider: Maximo Montez RN)1400 (Canceled Entry - Provider: Rolando Fajardo RN)2200 (Canceled Entry - Provider: Rolando Fajardo RN) 0506 (Given - Provider: Viktoria worthington RN) 5 mL, Intravenous, EVERY 8 HOURS, First dose on Fri05/01/16 at 1615, Until Discontinued 2200 (Canceled Entry - Provider: Evelin Correa RN) saline FLUSH syringe 5 mL 1400 (Not Given - Provider : Verito Heart RN - Reason: Clinically appropriate (comment) - Comment: IVF infusing)2130 (Given - Provider: Evelin Correa RN) 0600 (Given - Provider: Maximo Montez RN)1400 (Canceled Entry - Provider: Gracia Young RN)2126 (Given - Provider: Rolando Fajardo RN) 0506 (Given - Provider: Viktoria worthington RN) 5 mL, Intravenous, EVERY 8 HOURS, First dose on Fri05/09/16 at 1400, Until Discontinued ampicillin/sulbactam ( UNASYN ) 1.5 g in sodium chloride 0.9% 100 mL IV piggyback (CANCELED) 0245 (New Bag - Provider: Maximo chowdhury RN)0853 (New Bag - Provider: Verito Heart RN)1519 (New Bag - Provider: Verito Heart RN)2151 (New Bag - Provider: Evelin Correa RN) 0248 (New Bag - Provider: Maximo Montez RN)0857 (New Bag - Provider: Gracia Young RN) 1.5 g, Intravenous, EVERY 6 HOURS (NS), First dose on Fri05/06/16 at 1500, Until Discontinued, Administer over 60 Minutes bisacodyl (DULCOLAX) delayed released tablet 5 mg 0800 (Not Given - Provider: Verito Heart RN - Reason: NPO) 0800 (Declined - Provider: Gracia Young RN) 0819 (Given - Provider: Good Zamarripa) 5 mg, oral, DAILY, First dose on Fri05/06/16 at 1445, Until Disc ontinued ceFAZolin ( ANCEF) 2 g in iso-osmotic dextrose 50 mL IV lakisha yback 145 (New Bag - Provider: Gracia Young RN)205 (New Bag - Provider: Rolando Fajardo RN) 0505 (New Bag - Provider: Viktoria gilmore RN) 2 g, Intravenous, EVERY 8 HOURS (NS), Fi rst dose on Fri05/10/16 at 1300, Until Discontinued, Administer over 30 Minutes cephalexin (KEFLEX) capsule 500 mg 500 mg, oral, FOUR TIMES A DAY, First do se on Fri05/06/16 at 1200, Until Discontinued heparin injection 5,000 Units 0556 (Give n - Provider: Maximo Montez RN)1455 (Given - Provider: Gracia Young RN)2126 (Given - Provider: Rolando Fajardo RN) 0709 (Given - Provider: Viktoria worthington RN) 5,000 Units, Subcutaneous, EVERY 8 HOURS , First dose on Fri05/10/16 at 0600, Until Discontinued influenza vaccine [id number] HIGH DOSE (6 5 years and older) (PF) (FLUZONE HIGH DOSE) 0.5 mL 0.5 mL, IntraMUSCULAR, ONE TIME ONLY - TOMORROW, 1 dose, 07/18 at 0800 senna (SENOKOT) tablet 1-2 tablet 0800 (Not Given - Pr ovider: Verito Heart RN - Reason: NPO)2155 (Declined - Provider: Evelin Correa, MADELYN) 0800 (Declined - Provider: Gracia Young, MADELYN)1941 (Given - Provider: Rolando Fajardo, MADELYN) 0819 (Given - Provider: Good Zamarripa) 1-2 tablet, oral, TWICE A DAY, First dos e on 05/01/16 at 2000, Until Discontinued Continuous Medication Order 05/09/2016 05/10/2016 05/11/2016 lactated ringers (LR) IV infusion (CANCELED) 1130 (New Bag - Provider: Anjelica George, MADELYN) at 100 mL/hr, Intravenous, CONTINUOUS, S tarting Shannon 05/09/16 at 1045, Until Shannon 05/09/16 at 1203, PACU sodium chloride 0.9 % IV solution 0631 (New Bag - Prov ider: Maximo Montez, MADELYN) at 75 mL/hr, Intravenous, CONTINUOUS, St arting 05/06/16 at 2100, Until 05/11/16 at 1639 PRN Medication Order 05/09/2016 05/10/2016 05/11/2016 saline FLUSH syringe 10-20 mL 1015 (Given - Pr ovider: Brianna Hoffman RN) 10-20 mL, Intra-Catheter, NEEDED, Sta rting Shannon 05/09/16 at 1750, Until 05/11/16 at 1639, Line Care, for PICC or Midline Line Care saline FLUSH syringe 5 mL 0849 (Given - Provider: Juliana German, MADELYN) 0808 (Given - Provider: Gracia Young, MADELYN) 5 mL, Intravenous, NEEDED, Starting W ed 05/01/16 at 1559, Until 05/11/16 at 1639, Line Care saline FLUSH syringe 5 mL 0901 (Given - Provid er: Gracia Young, MADELYN) 5 mL, Intravenous, NEEDED, Starting T hu 05/09/16 at 0911, Until 05/11/16 at 1639, Line Care acetaminophen (TYLENOL) tablet 325-650 mg 0631 (Given - Provider: Maximo Montez, MADELYN) 0134 (Given - Provider: Reid Chino RN) 325-650 mg (1-2 tablet), oral, EVERY 4 H OURS NEEDED, Starting Fri05/01/16 at 1603, Until 05/11/16 at 1639, Fever, Pain bacitracin 50,000 Units in sodium chlori de 0.9% Irrig 1,000 mL bottle (COMPLETED) 1032 (Given - Provider: Danii Lucia MD) Irrigation, INTRA-PROCEDURE ONE TIME DOS E NEEDED, 1 dose, Starting Shannon 05/09/16 at 0925, Until Shannon 1216 at 2359, PLEASE PUT IN BAG. THANKS bisacodyl (DULCOLAX) delayed released tablet 5-15 mg 5-15 mg, oral, DAILY NEEDED, Starting 05/01/16 at 1600, Until 05/11/16 at 1639, Constipation cyclobenzaprine (FLEXERIL) tablet 5 mg 5 mg, oral, EVERY 8 HOURS NEEDED, Sta rting Fri05/01/16 at 2044, Until 05/11/16 at 1639, Muscle spasm fentaNYL (SUBLIMAZE) injection 25-50 mcg (CANCELED) 11 18 (Given - Provider: Anjelica George RN)1130 (Given - Provider: Anjelica George RN) 25-50 mcg, Intravenous, EVERY 5 MINUTES NEEDED, Starting Shannon 12/8/16 at 1039, Until Shannon 128/16 at 1203, PACU, for acute surgical pain, This medication has a Blackbox Warning. Click the formulary reference link for more information. HYDROmorphone (DILAUDID) syringe 0.2-0.4 mg (CANCELED) 1118 (Given - Provider: Anjelica George RN)1122 (Given - Provider: Anjelica George RN)1128 (Given - Provider: Anjelica George RN) 0.2-0.4 mg, Intravenous, EVERY 5 MINUTES NEEDED, 5 doses, Starting Shannon 12/8/16 at 1039, Until Shannon 12/8/16 at 1203, PACU, for post acute pain management while in recovery area. HYDROmorphone (DILAUDID) syringe 0.5-1 mg 0806 (Given - Provider: Gracia Young, MADELYN) 0.5-1 mg, Intravenous, EVERY 4 HOURS NEEDED, Starting 05/01/16 at 1603, Until 05/11/16 at 1639, Severe Pain HYDROmorphone (DILAUDID) tablet 1 mg 0455 (Given - Pro vider: Maximo Montez, MADELYN)2206 (Given - Provider: Evelin Correa, MADELYN) 0605 (Given - Provider: Maximo Montez RN)1514 (Given - Provider: Gracia Young, MADELYN)1941 (Given - Provider: Rolando Fajardo, MADELYN) 0135 (Given - Provider: Viktoria worthington RN)1033 (Given - Provider: Ana Child, MADELYN) 1 mg, oral, EVERY 4 HOURS NEEDED, Sta rting 05/06/16 at 1438, Until 05/11/16 at 1639, Pain hydrOXYzine pamoate (VISTARIL) capsule 25-50 mg (COMPL ETED) 1118 (Given - Provider: Anjelica George, MADELYN) 25-50 mg, oral, ONE TIME DOSE NEEDED, 1 dose, Starting Shannon 05/09/16 at 1039, Until Discontinued, PACU, for augmentation of narcotic based analgesia while in recovery area. lidocaine 1% (XYLOCAINE) injection 0.1-0.3 mL 0849 (Gi alfonzo - Provider: Juliana German, RN) 0.1-0.3 mL, Intradermal, NEEDED, Star ting 05/01/16 at 1559, Until 05/11/16 at 1639, IV start or restart lidocaine 1% (XYLOCAINE) injection 1-3 mL 1-3 mL, Intradermal, NEEDED, Starting Shannon 05/09/16 at 1750, Until 05/11/16 at 1639, IV start or restart of PICC or MIDLINE catheter lidocaine 1% / 8.4% sod bicarb (buffered lidocaine) syringe for IV starts 0.1- 0.3 mL 0.1-0.3 mL, Intradermal, NEEDED, Star ting 05/01/16 at 1559, Until 05/11/16 at 1639, IV line placement, IV start or restart LORazepam (ATIVAN) injection (conc: 2 mg/mL) 1 mg 1 mg, Intravenous, EVERY 4 HOURS NEED ED, Starting 05/06/16 at 1959, Until 05/11/16 at 1639, Anxiety, Agitation, Sleep, for shortness of breath magnesium hydroxide (MILK OF MAGNESIA) suspension 30 mL 30 mL, oral, DAILY NEEDED, Starting W ed 05/01/16 at 1600, Until 05/11/16 at 1639, Constipation, if no response after polyethylene glycol. ondansetron (ZOFRAN) disintegrating tablet 4-8 mg(Link ed Group 1) 0256 (See Alternative - Provider: Maximo Montez RN) 4-8 mg, oral, EVERY 8 HOURS NEEDED, S tarting 05/01/16 at 1600, Until 05/11/16 at 1639, Nausea & Vomiting ondansetron (ZOFRAN) injection 4-8 mg(Linked Group 1) 0256 (Given - Provider: Maximo Montez RN) 4-8 mg, Intravenous, EVERY 8 HOURS NE EDED, Starting 05/01/16 at 1600, Until 05/11/16 at 1639, Nausea & Vomiting polyethylene glycol (MIRALAX) packet 17 g 17 g, oral, DAILY NEEDED, Starting We d 05/01/16 at 1600, Until 05/11/16 at 1639, Constipation, if no response to bisacodyl 15mg. saline with benzyl alcohol injection 0.1-0.3 mL 0.1-0.3 mL, Intradermal, NEEDED, Star isis Shannon 05/09/16 at 0911, Until 05/11/16 at 1639, IV start or restart simethicone (MYLICON) chewable tablet 80-160 mg 0856 (Given - Provider: Gracia Young RN) 80-160 mg (1-2 tablet), oral, EVERY 6 HO URS NEEDED, Starting 05/06/16 at 2048, Until 05/11/16 at 1639, Flatulence sodium phosphates (FLEET) rectal enema 1 enema 1 enema, Rectal, DAILY NEEDED, Starti ng Wed 05/01/16 at 1600, Until 05/11/16 at 1639, Constipation, if no response after magnesium hydroxide. No Frequency Medication Order 05/09/2016 05/10/2016 05/11/2016 ALBUTEROL SULFATE HFA 90 MCG/ACTUATION AEROSOL INHALER (COMPLETED) 1012 (Given - Provider: Mahnaz Casarez CEMETERY WORKER, REPLACER) 1 dose, Starting on Shannon 05/09/16 at 1017, Until Shannon 05/09/16 at 10 17 Linked Groups Order Group 1: ondansetron (ZOFRAN) injection 4-8 mgJump to med 4-8 mg, Intravenous, EVERY 8 HOURS NE EDED, Starting 05/01/16 at 1600, Until 05/11/16 at 1639, Nausea & Vomiting Or ondansetron (ZOFRAN) disintegrating tablet 4-8 mgJump to med 4-8 mg, oral, EVERY 8 HOURS NEEDED, S tarting 05/01/16 at 1600, Until 05/11/16 at 1639, Nausea & Vomiting documented in this encounter 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
--- OUTSIDE RECORDS SUMMARY | 2022-02-13 11:40 | XMS_ITS | Encounter Summary ---
:1940 Author Organization [facility] Address [address] [place] [address] Care Team Providers Name Role Phone Francesco Bonner MD Unavailable Unavailable Anup Evans MD Primary Care Provider [facility] [phone] Reason for Referral Consultation (Routine) - Auth-No PA/Ref Req Specialty Diagnoses / Procedures Referred By Contact Refer red To Contact Physical Therapy Diagnoses Bilateral low back pain without sciatica, unspecified chronicity Tomás Mendez MD [address] Pérez [place] [facility] [address] [facility] [address] [place] [id number] Referral ID Status Reason Start Expiration Visits Visits Date Date Requested Authorized [id number] Auth-No Specialty 07/16/2017 1 1 PA/Ref Req Services Required Comments Eval and treat Low back pain 8 visits C BLOWER Reason for Visit Reason Comments Back pain Encounter Details Date Type Department Care Team Description 07/16/2017 Office Visit [facility] Meme Mendez MD Bilateral low back Clinic - [address] salguero [place] [address]o 104 sciatica, unspecified Beto 104 Internal Medicine chronicity (Primary [place], [place] [address] [place], [place] Dx) [phone] (Wo rk) Social History Tobacco Use Types [...] Sign Reading Time Taken Comments Blood Pressure 92/62 07/16/2017 8:53 AM ATTIC BLOWER Pulse 85 07/16/2017 8:53 AM ATTIC BLOWER Temperature 36.7 ??C (98.1 ??F) 07/16/2017 8:53 AM ATTIC BLOWER Respiratory Rate - - Oxygen Saturation 96% 07/16/2017 8:53 AM ATTIC BLOWER Inhaled Oxygen Concentration - - Weight 71.3 kg (157 lb 1.6 oz) 07/16/2017 8:53 AM ATTIC BLOWER Height - - Body Mass Index 27.83 07/10/2016 9:30 AM ATTIC BLOWER documented in this encounter Progress Notes Tomás Mendez MD - 07/16/2017 9:00 AM CST [facility] CHIEF COMPLAINT: Low back pain HPI: This is a 77 y.o. female here for the above. Pt has been having low back pain for the past few days; wondering if could be due to a UTI as has have them remotely in the past. Also known h/o lumbarDDD; no recent trauma or injury. No ab pain/fevers/cp/sob. She's otherwise in her usual state of health. Past medical history has been reviewed and updated in [facility] REVIEW OF SYSTEMS: 10-point review of systems is negative other than those listed in the HPI. PHYSICAL EXAM: Blood pressure 92/62, pulse 85, temperature 98.1 ??F (36.7 ??C), temperature source Oral, weight 71.3 kg (157 lb 1.6 oz), SpO2 96 %. General: No acute distress HEENT: Extraocular movements intact Cardiovascular: Regular rate and rhythm Lungs: Clear to auscultation bilaterally Abdomen: Soft/non-tender/non-distended Neurological: Normal coordination and gait Psych: Normal mood and affect Musculoskeletal: No pitting peripheral edema or tenderness; no tenderness to the low back, negative straight leg raise bilaterally ASSESSMENT: This is a 77 y.o. female with low back pain secondary to possible UTI vs lumbar DDD PLAN: 1. Low back pain- will check a UA and if negative for infection, referral to PT given. F/u 2-4 wks PRN. Can use tylenol PRN Tomás Mendez MD 07/16/2017 C BLOWER Tomás Mendez MD - 07/16/2017 9:00 AM CST Please notify pt of negative UA for obvious infection; f/u with PT for low back pain C BLOWER KRYSTLE Juan - 07/16/2017 9:00 AM CST See telephone encounter 07/16/2017 C BLOWER documented in this encounter Plan of Treatment Scheduled Referrals Name Type Priority Associated Diagnoses Order S chedule REFERRAL PHYSICAL Referral Routine Bilateral low back pain Ordered: 07/16/2017 THERAPY without sciatica, unspecified chronicity documented as of this encounter Procedures Procedure Name Priority Date/Time Associated Diagnosis Comme nts URINALYSIS (MACRO Routine 07/16/2017 9:12 AM Bilateral low arturo k Results for this DIP ONLY) OP ATTIC BLOWER pain without procedure are i n sciatica, the results unspecified section. chronicity documented in this encounter Results URINALYSIS (MACRO DIP ONLY) OP (07/16/2017 9:12 AM ATTIC BLOWER) [facility] Method Time Signature UA PH OP 7.0 5.0, 5.5, 07/16/2017 [facility] 6.0, 6.5, 9:52 AM [facility] 7[facility]0, 7.5, [facility] 8.0 [facility] UA SPECIFIC 1.015 1.015, 07/16/2017 NORTH GRAVITY OP 1.020, 1.025 9:52 AM [facility] UA PROTEIN OP Negative Negative 07/16/2017 [facility] mg/dL 9:52 AM [facility] UA GLUCOSE OP Negative Negative 07/16/2017 [facility] mg/dL 9:52 AM [facility] UA KETONES OP Negative Negative 07/16/2017 [facility] mg/dL 9:52 AM [facility] UA BILIRUBIN OP Negative Negative 07/16/2017 [facility] 9:52 AM [facility] UA BLOOD OP Trace Negative, 07/16/2017 [facility] Trace 9:52 AM [facility] UA LEUKOCYTE Negative Negative, 07/16/2017 [facility] ESTERASE OP Trace 9:52 AM [facility] UA UROBILINOGEN 0.2 0.2, 1.0 07/16/2017 [facility] OP EU/dL 9:52 AM [facility] UA NITRITE OP Negative Negative 07/16/2017 [facility] 9:52 AM [facility] Specimen Anatomical Collection Method Collection Time Receive d Time (Source) Location / / Volume Laterality Urine 07/16/2017 9:12 AM 8 9:12 ATTIC BLOWER AM ATTIC BLOWER Tomás Mendez MD URINE ORDERABLE Performing Organization Address City/State/ZIP Code Phon e Number [address] [address] [facility] [address] documented in this encounter Visit Diagnoses Diagnosis Bilateral low back pain without sciatica , unspecified chronicity - Primary documented in this encounter Care Teams Data Conversion Operator Relationship Specialty Start Date End Date Anup Evans MD PCP - General Internal Medicine 02/23/[address] [place] [address] Dr Berman Internal [facility] [place] [address] [facility] PCP - Primary Care Clinic [address] [place] [address] Francesco Bonner MD 08/11/13 documented as of this encounter
--- OUTSIDE RECORDS SUMMARY | 2022-02-13 11:40 | XMS_ITS | Encounter Summary ---
:1940 Author Organization [facility] Address [address] [place] [address] Care Team Providers Name Role Phone Francesco Bonner MD Unavailable Unavailable Anup Evans MD Primary Care Provider [facility] Unavailable [phone] Reason for Visit Reason Comments Follow up Encounter Details Date Type Department Care Team Description 05/28/2016 Office Visit [facility] Willis Crum, Post-oper ative infection (Primary Dx); Health Infectious Staphylococcal infection Disease Clinic [address] [place] [address] [place] [address] [address] [place], [place] [id number] Social History Tobacco Use Types Packs/Day Years [...] Sign Reading Time Taken Comments Blood Pressure 170/85 05/28/2016 2:00 PM PARACHUTE MANUFACTURING SUPERVISOR Pulse 89 05/28/2016 2:00 PM PARACHUTE MANUFACTURING SUPERVISOR Temperature 36.7 ??C (98 ??F) 05/28/2016 2:00 PM PARACHUTE MANUFACTURING SUPERVISOR Respiratory Rate - - Oxygen Saturation - - Inhaled Oxygen Concentration - - Weight 68 kg (150 lb) 05/28/2016 2:00 PM PARACHUTE MANUFACTURING SUPERVISOR Height - - Body Mass Index 27.44 05/01/2016 4:10 PM PARACHUTE MANUFACTURING SUPERVISOR documented in this encounter Progress Notes Willis Crum MD - 05/28/2016 2:00 PM CST INFECTIOUS DISEASE CLINIC NOTE CHIEF COMPLAINT: hospital discharge follow up HISTORY OF PRESENT ILLNESS : Jennifer Cole is a 76 y.o. female is here for lumbar laminectomy site infection due to MSSA. She was admitted 05/01-05/10 for laminectomy site infection. She underwent bilateral L5-S1 laminectomy at OSH, and presented with wound drainage without neurologic deficit. MRI of spine showed fluid collection 3.2x 3.8x 4.5cm, CT aspiration performed on 05/08/16 and culture of the fluid grew MSSA. she un derwent I&D on 05/09/16 and Op culture grew MSSA infection. BCx was neagtive on 05/01,05/02. She was discharged with IV cefazolin 2g q8h for 6 weeks. Today, she came with her daughter. Reports she has been doing very well, denies fever, chills, drainage, pain on op site, difficulty using picc line, arm swelling or pain, n/v/d. She feels well and no complaint. She denies any implant or prosthetic in her back. REVIEW OF SYSTEMS : As above. The rest of the 10 system systems review is negative. PAST MEDICAL HISTORY : Past Medical History Diagnosis Date ??? Lumbar disc herniation ??? Tobacco dependence Past Surgical History Procedure Laterality Date ??? Hx cholecystectomy 1971 ??? Hx back surgery Right 09/02/2013 L5-S1 hemilaminectomy + discectomy ??? Hx breast surgery Right 1995 Cyst resection ??? Hx back surgery 04/2016 ??? Insert picc 05/09/2016 Current Outpatient Prescriptions Medication Sig Dispense Refill ??? cyclobenzaprine (FLEXERIL) 5 mg oral tablet Take 1 tablet (5 mg) by mouth every 8 (eight) hours as needed. 60 tablet 0 ??? HYDROmorphone (DILAUDID) 2 mg oral tablet Take 0.5-1 tablets (1-2 mg) by mouth every 4 (four) hours as needed for Pain. 30 tablet 0 ??? sodium chloride 0.9 % IV solution 50 mL with Cefazolin 10 gram Recon Soln 2,000 mg 2,000 mg by Intravenous route every 8 (eight) hours for 40 days. No current facility-administered medications for this visit. ALLERGIES: Allergies Allergen Reactions ??? Percocet [Oxycodone-Acetaminophen] Itching Severe itching SOCIAL HISTORY :active smoker OBJECTIVE : Vital Signs: BP (!) 170/85 Pulse 89 Temp 98 ??F (36.7 ??C) (Oral) Wt 150 lb (68 kg) BMI 27.44 kg/m2 Body mass index is 27.44 kg/(m^2). GENERAL APPEARANCE: She is awake and alert and in no acute distress. SKIN: Intact, warm, dry. No rashes or lesions. NEUROLOGIC: alert and oriented, moves all extremities MUSCULOSKELETAL : mid lower back with surgical scar, site is clean, no fluctuant, no erythema, no tenderness, no crepitus. Lines: PICC line on RUE, site clean. Laboratory: WBC Date Value Ref Range Status 05/02/2016 9.2 4.3 - 10.8 K/uL Final WHITE BLOOD CT Date Value Ref Range Status 05/31/2009 9.5 4.3 - 10.8 K/uL Final CREATININE Date Value Ref Range Status 05/11/2016 0.68 0.55 - 1.02 mg/dL Final 08/11/2013 0.8 0.6 - 1.3 mg/dL Final EST GFR (MDRD) Date Value Ref Range Status 05/11/2016 >60 >60 mL/min Final ASSESSMENT: Post-operative infection Staphylococcal infection PLAN : 1. Complete total 6 weeks of IV cefazolin 2g q8h, last date 06/19/2015 - follow up on 06/17/16 - according to op note, purulent fluid was cleaned out and presented on muscle layer. No bone involvement. - weekly lab reviewed, CRP 2.3 (05/15) and 1.10 (05/22). WBC 6.3k, Creatinine 0.78 - discussed warning signs including worsening infection, picc line associated complications, and c.diff diarrhea. Treatment plan discussed with the patient and her daughter. 2. Smoking cessation - further discussion with PCP 05/28/2016 Willis Crum MD Total time 20 minutes,with greater than 50% spent in counseling regarding the above diagnosis, prognosis and plan/recommendations. CHUTE MANUFACTURING SUPERVISOR documented in this encounter Plan of Treatment Not on filedocumented as of this encounter Visit Diagnoses Diagnosis Post-operative infection - Primary Other postoperative infection Staphylococcal infection Unspecified staphylococcus infection in conditions classified elsewhere and of unspecified site documented in this encounter Care Teams Dispatcher Maintenance Service Relationship Specialty Start Date End Date Anup Evans MD PCP - General Internal Medicine 02/23/[address] [place] [address] Dr Pérez [facility] Internal Medicine [place], [place] [id number] Chauncey Bill [facility] PCP - Primary Care Clinic [address] PÉREZ [address] [place] [address] Francesco Bonner MD 08/11/13 documented as of this encounter
--- OUTSIDE RECORDS SUMMARY | 2022-02-13 11:40 | XMS_ITS | Encounter Summary ---
:1940 Author Organization [facility] Address [address] [place] [address] Care Team Providers Name Role Phone Francesco Bonner MD Unavailable Unavailable Anup Evans MD Primary Care Provider [facility] Unavailable [phone] Reason for Visit Reason Comments Follow up medication Encounter Details Date Type Department Care Team Description 08/14/2017 Office Visit [facility] Anup Evans, Leg cramp s (Primary Dx); [facility] - ASCVD (arteriosclerotic cardiovascular d isease); [address] Orlin; [facility] 104 Impacted cerumen of right ear [address]o [address] [place] [address] [phone] Social History Tobacco Use Types Packs/Day Years [...] Sign Reading Time Taken Comments Blood Pressure 124/70 08/14/2017 11:47 AM CDT Pulse 77 08/14/2017 11:47 AM CDT Temperature 36.8 ??C (98.2 ??F) 08/14/2017 11:47 AM CDT Respiratory Rate - - Oxygen Saturation 97% 08/14/2017 11:47 AM CDT Inhaled Oxygen Concentration - - Weight 71.9 kg (158 lb 8 oz) 08/14/2017 11:47 AM CDT Height - - Body Mass Index 28.08 07/10/2016 9:30 AM LEAD MILITARY 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 ?? Jennifer Cole is a pleasant 77 y.o. year old female seen with [facility] on 08/14/17. CHIEF COMPLAINT: Follow-up general medical status and problems. 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 She anticipates upcoming knee surgery. Shehas some cramping in her legs really in the tabs which occur primarily at rest and in the evening and at night. She had tried her daughter's muscle relaxant which was of some benefit. She had tried holding her statin for a month and noted no change in symptoms. She is not interested in a trial of gabapentin as her had difficulties with that medication. ACTIVE PROBLEM LIST: Diagnosis ??? DDD (degenerative [...] left arm) ??? PAD (peripheral artery disease) ([facility]) 12/13 Study reveals the following: There is [...] use Yes Comment: Occasional Current Outpatient Prescriptions: aspirin 81 mg oral enteric coated tablet Take 81 mg by mouth once daily. coenzyme Q10 200 mg oral Cap Take 1 capsule (200 mg) by mouth once daily. orphenadrine citrate 100 mg oral TbSR Take 1 tablet by mouth twice a day as needed. rosuvastatin (CRESTOR) 20 mg oral tablet Take 1 tablet (20 mg) by mouth once daily. triamterene-hydrochlorothiazide (MAXZIDE) 37.5-25 mg oral tablet TAKE ONE TABLET BY MOUTH ONCE DAILY Allergies Allergen Reactions ??? Atorvastatin ??? Percocet [Oxycodone-Acetaminophen] Itching Severe itching PHYSICAL EXAM: BP 124/70 Pulse 77 Temp 98.2 ??F (36.8 ??C) (Oral) Wt 71.9 kg (158 lb 8 oz) SpO2 97% BMI 28.08 kg/m?? General: The patient is pleasant and interactive. Speech is fluent. HEENT: The conjunctiva are moist and clear. Mouth and oropharynx are moist and clear. Ears demonstrated a right-sided cerumen impaction. I offered to remove this. The patient wished to proceed. The cerumen impaction was removed with the plastic loop ear curet under direct visualization. The external canal and tympanic membranes were then reinspected and appeared unremarkable. Cardiovascular: The heart tones are regular. Pedal pulses are palpable. The feet are warm and well perfused. Respiratory: The lung sounds are clear. There is normal respiratory effort. Dermatologic: Visualized skin is clear. There is no significant lower extremity edema. Neurologic: Neurologic examination demonstrates no focal deficits. Reflexes are symmetric and of normal response. IMPRESSION: 1. Leg cramps 2. ASCVD (arteriosclerotic cardiovascular disease) 3. Hypercholesterolemia 4. Cerumen impaction PLAN: Treatment options were discussed. I printed information for her on nocturnal leg cramps. Stretching was recommended. Resume Crestor 20 mg daily. I provided a prescription for a trial of orphenadrine 100 mg which she will try taking in the evening as needed. She may also try some diphenhydramine each may be of benefit. She will be following up with her orthopedist in the near future. Above was discussed at length with her and questions were answered. She was comfortable and in agreement with the plan. She will contact the clinic with updates in status as needed. documented in this encounter Plan of Treatment Scheduled Orders Name Type Priority Associated Diagnoses Order S chedule REMOVAL IMPACTED CERUMEN Procedures Routine Impacted cerumen of Ordered: BY INSTRUMENTATION right ear 8 documented as of this encounter Visit Diagnoses Diagnosis Leg cramps - Primary Cramp of limb ASCVD (arteriosclerotic cardiovascular d isease) Unspecified cardiovascular disease Hypercholesterolemia Pure hypercholesterolemia Impacted cerumen of right ear Impacted cerumen documented in this encounter Care Teams Clinical Mental Health Counselor Relationship Specialty Start Date End Date Anup Evans MD PCP - General Internal Medicine 02/23/[address] [place] [address] Dr Pérez [facility] [place] [address] Chauncey Bill [facility] PCP - Primary Care Clinic [address] [place] [address] DR PÉREZ [address] [place] [address] Francesco Bonner MD 08/11/13 documented as of this encounter
--- OUTSIDE RECORDS SUMMARY | 2022-02-13 11:40 | XMS_ITS | Encounter Summary ---
:1940 Author Organization [facility] Address [address] [place] [address] Care Team Providers Name Role Phone Francesco Bonner MD Unavailable Unavailable Anup Evans MD Primary Care Provider [facility] Unavailable [phone] Reason for Referral Consultation (Routine) - Closed Specialty Diagnoses / Procedures Referred By Contact Refer red To Contact Orthopedics Diagnoses Chronic pain of left knee Anup Evans MD [address] Villagomez [facility] [place] [id number] [facility] Internal Medicine [address] [place] [address] Fax: Referral ID Status Reason Start Date Expiration Date Visits V isits Requested Authorized [id number] Closed Specialty 02/04/2017 02/04/2018 1 1 Services Required (Routine) - Closed Specialty Diagnoses / Procedures Referred By Contact Refer red To Contact Diagnoses Essential hypertension Anup Evans MD Procedures THYROID STIMULATING HORMONE [address] [place] [address] Dr Villagomez [facility] Internal Medicine [place], [place] [address] Referral ID Status Reason Start Date Expiration Date Visits Requ ested Visits Authorized [id number] Closed 02/04/2017 02/04/2018 1 1 (Routine) - Closed Specialty Diagnoses / Procedures Referred By Contact Refer red To Contact Diagnoses Essential hypertension Anup Evans MD Procedures COMPREHENSIVE METABOLIC PANEL [address] [place] [address] Dr Berman Internal [facility] [place] [address] Referral ID Status Reason Start Date Expiration Date Visits Requ ested Visits Authorized [id number] Closed 02/04/2017 02/04/2018 1 1 (Routine) - Closed Specialty Diagnoses / Procedures Referred By Contact Refer red To Contact Diagnoses Essential hypertension Anup Evans MD Procedures CBC (HGB,HCT,WBC,RBC,PLATELET) [address] [place] [address] Dr Villagomez [facility] Internal Medicine [place], [place] [address] Referral ID Status Reason Start Date Expiration Date Visits Requ ested Visits Authorized [id number] Closed 02/04/2017 02/04/2018 1 1 Reason for Visit Reason Comments Follow up on BP and recent medication change Leg swelling and pain, Left leg, keeping her up at night Encounter Details Date Type Department Care Team Description 02/04/2017 Office Visit [facility] Anup Evans MD Medicare annual wellness visit, subseque nt (Primary Dx); Clinic - [address] Essential hypertension; [address] [place] [address] Gilmer Villagomez [facility] Hypercholesterolemia; [facility] Fatigue, unspecified type; [place] [address] 9 [place] Chronic pain of left knee [phone] (Wo rk) Social History Tobacco Use Types [...] Sign Reading Time Taken Comments Blood Pressure 138/62 02/04/2017 11:53 AM CDT Pulse 78 02/04/2017 11:53 AM CDT Temperature 36.7 ??C (98.1 ??F) 02/04/2017 11:53 AM CDT Respiratory Rate - - Oxygen Saturation 99% 02/04/2017 11:53 AM CDT Inhaled Oxygen Concentration - - Weight 71.5 kg (157 lb 11.2 oz) 02/04/2017 11:53 AM CDT Height - - Body Mass Index 27.94 07/10/2016 9:30 AM 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 You may have had many of these tests already and you may also be following this advice, but if you are not, please discuss this with me. ??? Drink alcohol only in moderation, avoid binge drinking and do not drink and drive. ??? Through age 79, you should consider taking an aspirin every day. You should not do this if you have a high risk for bleeding from your stomach. ??? You should discuss with your health care provider if you should still be getting a mammogram. ??? You should discuss with your health care provider whether or not you should have a colon cancer screening test at least every 10 years - either a colonoscopy or a test for blood in the stool. ??? You should have your blood pressure checked every 2 years if your pressure is less than 120/80 and yearly if your pressure is higher. ??? You should have a flu shot every late summer or early fall. ??? You should have your cholesterol panel checked at least every 5 years. ??? You should have a pneumonia vaccination once at or after age 65. ??? You should not use any tobacco products and, if you do, we should discuss your willingness to quit at each visit. ??? You should have one immunization against Herpes Zoster (shingles). ??? You should watch your weight and keep it in the normal range. ??? You should be screened for osteoporosis one time at or after age 65. ??? If you have hearing loss or problems with balance or dizziness, you should see an risk investigator orvisit a hearing and balance center. ??? Your vision should be checked every 2-10 years. ??? If you have not been immunized against polio, you should receive this immunization now. documented in this encounter Progress Notes Anup Evans MD - 02/04/2017 12:00 PM CDT SUBSEQUENT MEDICARE ANNUAL WELLNESS VISIT: Jennifer Cole is a 76 y.o. female who presents today for her Medicare Subsequent Annual WellnessVisit. She is not within the first year of medicare coverage and reports she has not had an annual wellness visit within the last 12 months. Patient Care Team: Anup Evans MD as PCP - General (Internal Medicine) [facility] as PCP - Primary Care Clinic Francesco Bonner MD Past Medical history, Surgical History, Family History, Social History and Allergies were reviewed in [facility] and updated today as needed. Current Outpatient Prescriptions: aspirin 81 mg oral enteric coated tablet Take 81 mg by mouth once daily. cyanocobalamin (VITAMIN B-12) 500 mcg oral Tab Take 500 mcg by mouth daily cyclobenzaprine (FLEXERIL) 5 mg oral tablet Take 1 tablet (5 mg) by mouth every 8 (eight) hours as needed. diclofenac sodium 1 % Top gel Apply 4 g to skin four times a day as needed. rosuvastatin (CRESTOR) 5 mg oral tablet Take 1 tablet (5 mg) by mouth at bedtime. triamterene-hydrochlorothiazide (MAXZIDE) 37.5-25 mg oral tablet Take 1 tablet by mouth once daily. Social History Substance Use Topics ??? Smoking status: Current Every Day Smoker Packs/day: 1.00 Years: 60.00 Types: Cigarettes ??? Smokeless tobacco: Never Used ??? Alcohol use Yes Comment: Occasional Health Care Directive?: No Pt given information/[place] [employer] form Depression Screen: PHQ-2 Interest: Not at all Depression: Not at all Nutrition Diet Type: Regular Fall Assessment: Have you fallen in the last year?: No Do you feel unsteady when walking or standing? : No Are you worried about falling?: No Mental Status: Pt Concerns about her mental status: No By direct observation, there are not concerns about their cognitive function from my perspective. Physical Activities/ADLs: Hygiene: Independent, Feeding: Independent, Dressing: Independent, Meal Prep: Independent, Grocery Shopping: Independent, Money Management: Independent, Medication Management: Independent, Driving Status: Independent, Yard Work/Snow Removal: Not Responsible Objective Nursing notes and vitals have been reviewed Vitals: 02/04/17 1153 BP: 138/62 Pulse: 78 Temp: 98.1 ??F (36.7 ??C) Weight: 71.5 kg (157 lb 11.2 oz) Body mass index is 27.94 kg/m??. Hearing Do you have difficulty with your hearing?: No Assessment/Plan: Jennifer Cole was seen today for her Subsequent Annual Wellness Visit for Medicare. I have reviewed all of the above information and it is correct. Information on health care directives from [facility] [employer] was provided. Additionally, she has been provided a handout on her personalized health advice, list of risk factors, and a screening schedule for recommended testing which we have discussed today (see Pt Instructions). Appropriate tests, referrals and the associated diagnoses have been ordered based on patient's history, risk factors and chronic disease. Anup Evans MD - 02/04/2017 12:00 PM CDT Jennifer Cole is a pleasant 76 y.o. year old female seen with [place] [facility] on 02/04/17. CHIEF COMPLAINT: Medicare wellness evaluation, follow-up hypertension, follow-up medical problems and medications, left knee pain HPI: She had left knee pain for the past couple of months. It is described as an ache. There is no significant radiation of pain. It is worse when she is standing. At times her some aching when she is at rest as well. She is having no fevers, chills, or sweats. She notes no significant her seizures. She had achiness in her legs associated with the atorvastatin and she self discontinued that medication. She is not adverse to trying a different medication. She had noted some fatigue on amlodipine. This was changed to triamterene- hydrochlorothiazide. She feels that she is tolerating the medication although is still noting some fatigue. She is having no chest pains or angina. She notes no respiratory concerns. She continues to smoke. She is not interested in pursuing tobacco cessation. ACTIVE PROBLEM LIST: Diagnosis ??? Hypercholesterolemia ??? Asymmetric blood pressures L>R (Check BP on left arm) ??? PAD (peripheral artery disease) (HCC) ??? Essential hypertension ??? Tobacco use Past [...] Take 81 mg by mouth once daily. cyanocobalamin (VITAMIN B-12) 500 mcg oral Tab Take 500 mcg by mouth daily cyclobenzaprine (FLEXERIL) 5 mg oral tablet Take 1 tablet (5 mg) by mouth every 8 (eight) hours as needed. diclofenac sodium 1 % Top gel Apply 4 g to skin four times a day as needed. rosuvastatin (CRESTOR) 5 mg oral tablet Take 1 tablet (5 mg) by mouth at bedtime. triamterene-hydrochlorothiazide (MAXZIDE) 37.5-25 mg oral tablet Take 1 tablet by mouth once daily. Allergies Allergen Reactions ??? Atorvastatin ??? Percocet [Oxycodone-Acetaminophen] Itching Severe itching PHYSICAL EXAM: BP 138/62 (BP Cuff Site: Left arm, BP Cuff Position: Sitting, BP Cuff Size: Regular adult) Pulse 78 Temp 98.1 ??F (36.7 ??C) (Oral) Wt 71.5 kg (157 lb 11.2 oz) SpO2 99% BMI 27.94 kg/m?? General: The patient is pleasant and interactive. Speech is fluent. HEENT: The conjunctiva are moist and clear. Mouth and oropharynx are moist and clear. Cardiovascular: The heart tones are regular. There are no murmurs. Respiratory: The lung sounds are clear. There is normal respiratory effort. Gastrointestinal: There is no abdominal tenderness, masses, or organomegaly. Musculoskeletal: Joints are without redness, warmth, or effusions. There is no crepitation about theleft knee. Dermatologic: Visualized skin is clear. There is no lower extremity edema. Neurologic: Neurologic examination is nonfocal. Lymphatics: There is no palpable lymphadenopathy. IMPRESSION: 1. Medicare annual wellness visit, subsequent 2. Essential hypertension 3. Hypercholesterolemia 4. Fatigue, unspecified type 5. Chronic pain of left knee PLAN: We reviewed her medications and diagnoses. She had strong pedal pulses. She is not adverse to a trial of an alternate statin. Rosuvastatin is prescribed 5 mg daily. Potential risks and side effects of medication use are discussed with her. I provided a prescription for a trial of diclofenac gel. Orthopedic referral is provided. Laboratory studies are obtained. She declines flu vaccine. She is encouraged to stop smoking. Above was discussed at length with her and questions were answered. She was comfortable and in agreement with the plan. She will contact the clinic with updates in status as needed. documented in this encounter Plan of Treatment Scheduled Referrals Name Type Priority Associated Diagnoses Order S chedule REFERRAL ORTHOPEDICS Referral Routine Chronic pain of left knee Ordered: 02/04/2017 documented as of this encounter Procedures Procedure Name Priority Date/Time Associated Diagnosis Comme nts THYROID STIMULATING Routine 02/04/2017 12:29 Essential Resu lts for this HORMONE PM CDT hypertension procedure are i n the results section. COMPREHENSIVE Routine 02/04/2017 12:29 Essential Results fo r this METABOLIC PANEL PM CDT hypertension procedure ar e in the results section. CBC Routine 02/04/2017 12:29 Essential Results for this (HGB,HCT,WBC,RBC,PLATE PM CDT hypertension proce dure are in LET) the results section. documented in this encounter Results THYROID STIMULATING HORMONE (02/04/2017 12:29 PM CDT) athologist Signature TSH 2.35 0.36 - 3.74 02/04/2017 [facility] UIU/mL 2:41 PM [facility] Specimen Anatomical Collection Method / Collection Time Recei lisa Time (Source) Location / Volume Laterality Blood Venipuncture / 02/04/2017 12:29 7 Unknown PM CDT 12:29 PM CDT Anup Evans MD CHEMISTRY ORDERABLE Performing Organization Address City/State/ZIP Code Phon e Number [facility] [address] [place] [address] [phone] LABORATORY COMPREHENSIVE METABOLIC PANEL (02/04/2017 12:29 PM CDT) athologist Signature SODIUM 140 136 - 145 02/04/2017 [facility] mmol/L 2:38 PM [facility] POTASSIUM 3.8 3.5 - 5.1 02/04/2017 [facility] mmol/L 2:38 PM [facility] CHLORIDE 105 98 - 112 02/04/2017 [facility] mmol/L 2:38 PM [facility] CARBON DIOXIDE 28 21 - 32 02/04/2017 [facility] mmol/L 2:38 PM [facility] BUN (UREA 10 7 - 24 02/04/2017 [facility] NITRO) mg/dL 2:38 PM [facility] CREATININE 0.86 0.55 - 02/04/2017 [facility] 1.02 mg/dL 2:38 PM [facility] EST GFR >60 >60 mL/min 02/04/2017 [facility] (CKD-EPI) 2:38 PM CDT [facility] EST GFR IF >60 >60 mL/min 02/04/2017 [facility] AM 2:38 PM [facility] GLUCOSE 82 74 - 106 02/04/2017 [facility] mg/dL 2:38 PM [facility] CALCIUM, SERUM 9.0 8.5 - 10.1 02/04/2017 [facility] L mg/dL 2:38 PM [facility] ANION GAP 7.0 0.0 - 15.0 02/04/2017 [facility] mmol/L 2:38 PM [facility] ALBUMIN 3.8 3.4 - 5.0 02/04/2017 [facility] gm/dL 2:38 PM [facility] BILIRUBIN-TOTAL 0.8 0.2 - 1.0 02/04/2017 [facility] L mg/dL 2:38 PM [facility] ALKALINE P'TASE 87 45 - 117 02/04/2017 [facility] L IU/L 2:38 PM [facility] PROTEIN TOTAL 7.0 6.4 - 8.2 02/04/2017 [facility] g/dL 2:38 PM [facility] AST (SGOT) 15 12 - 37 02/04/2017 [facility] IU/L 2:38 PM [facility] ALT 19 12 - 68 02/04/2017 [facility] IU/L 2:38 PM [facility] Specimen Anatomical Collection Method / Collection Time Recei lisa Time (Source) Location / Volume Laterality Blood Venipuncture / 02/04/2017 12:29 7 Unknown PM CDT 12:29 PM CDT Anup Evans MD CHEMISTRY ORDERABLE Performing Organization Address City/State/ZIP Code Phon e Number [facility] [address] [place] [address] LABORATORY CBC (HGB,HCT,WBC,RBC,PLATELET) (02/04/2017 12:29 PM CDT) P athologist Signature WBC 5.6 4.3 - 10.8 02/04/2017 [facility] K/uL 2:32 PM [facility] RBC 4.39 4.20 - 02/04/2017 [facility] 5.40 M/uL 2:32 PM [facility] HEMOGLOBIN 14.2 12.0 - 02/04/2017 [facility] 16.0 gm/dL 2:32 PM [facility] HEMATOCRIT 41.8 36.0 - 02/04/2017 [facility] 48.0 % 2:32 PM CDT [facility] MCV 95 80 - 100 02/04/2017 [facility] fl 2:32 PM CDT [facility] MCH 32 27 - 33 pg 02/04/2017 [facility] 2:32 PM CDT [facility] MCHC 34 33 - 36 02/04/2017 [facility] gm/dL 2:32 PM CDT [facility] RDW 12.4 11.5 - 02/04/2017 [facility] 14.5 % 2:32 PM CDT [facility] PLATELET COUNT 244 150 - 400 02/04/2017 [facility] K/uL 2:32 PM CDT [facility] MPV 11.3 6.5 - 12.0 02/04/2017 [facility] 2:32 PM CDT [facility] Specimen Anatomical Collection Method / Collection Time Recei lisa Time (Source) Location / Volume Laterality Blood Venipuncture / 02/04/2017 12:29 02/04/201 7 Unknown PM CDT 12:29 PM CDT Anup Evans MD HEMATOLOGY ORDERABLE Performing Organization Address City/State/ZIP Code Phon e Number [facility] [address] [place] [address] [phone] LABORATORY documented in this encounter Visit Diagnoses Diagnosis Medicare annual wellness visit, subseque nt - Primary Routine general medical examination at a health care facility Essential hypertension Unspecified essential hypertension Hypercholesterolemia Pure hypercholesterolemia Fatigue, unspecified type Chronic pain of left knee Pain in joint, lower leg documented in this encounter Care Teams It Systems Manager Relationship Specialty Start Date End Date Anup Evans MD PCP - General Internal Medicine 02/23/[address] [place] [address] Dr Villagomez 104 Internal Medicine [place] [address] [place] PCP - Primary Care Clinic [address]Z [address] [place] [address] Francesco Bonner MD 08/11/13 documented as of this encounter
--- OUTSIDE RECORDS SUMMARY | 2022-02-13 11:40 | XMS_ITS | Encounter Summary ---
:1940 Author Organization [facility] Address [address] [place] [address] Care Team Providers Name Role Phone Francesco Bonner MD Unavailable Unavailable Anup Evans MD Primary Care Provider [facility] Unavailable [phone] Reason for Visit Reason Comments Follow up Encounter Details Date Type Department Care Team Description 06/17/[address] [facility] Willis Crum, Post-oper ative infection (Primary Dx); Health Infectious Staphylococcal infection Disease Clinic [address] [place] [address] [place] [address] [address] [place], [place] [phone] [id number] Social History Tobacco Use Types Packs/Day Years [...] Sign Reading Time Taken Comments Blood Pressure 169/76 06/17/2016 2:38 PM MYSQL DBA Pulse 88 06/17/2016 2:38 PM MYSQL DBA Temperature 36.6 ??C (97.8 ??F) 06/17/2016 2:38 PM MYSQL DBA Respiratory Rate - - Oxygen Saturation - - Inhaled Oxygen Concentration - - Weight 68 kg (150 lb) 06/17/2016 2:38 PM MYSQL DBA Height - - Body Mass Index 27.44 05/01/2016 4:10 PM MYSQL DBA documented in this encounter Progress Notes Willis Crum MD - 06/17/2016 3:00 PM [facility] NOTE CHIEF [...] picc line, arm swelling or pain, n/v/d. Able to ambulate without difficulties, denies leg pain, sensory change, bowel or urinary habit changes. She feels well and no complaint. She has no implant or prosthetic in her back. She strongly wants toremove picc line. REVIEW OF SYSTEMS : As above. The [...] hours as needed. 60 tablet 0 ??? sodium chloride 0.9 % IV solution 50 mL with Cefazolin 10 gram Recon Soln 2,000 mg 2,000 mg by Intravenous route every 8 (eight) hours for 40 days. No current facility-administered medications for this visit. ALLERGIES: Allergies Allergen Reactions ??? Percocet [Oxycodone-Acetaminophen] Itching Severe itching SOCIAL HISTORY :active smoker OBJECTIVE : Vital Signs: BP (!) 169/76 (BP Cuff Site: Left arm, BP Cuff Position: Sitting, BP Cuff Size: Regularadult) Pulse 88 Temp 97.8 ??F (36.6 ??C) Wt 150 lb (68 kg) BMI 27.44 kg/m2 Body mass index is 27.44 kg/(m^2). GENERAL APPEARANCE: She is awake and alert and in no acute distress. Smell of cigarrette smoke SKIN: Intact, warm, dry. 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 Doing very well. - Weekly lab reviewed, normalized CRP. - Op note reviewed. Warning signs and symptoms explained and educated to the patient and her daughter and they verbalized understanding. RTC prn 06/17/16 Willis Crum MD Total time 30 minutes,with greater than 50% spent in counseling regarding the above diagnosis, prognosis and plan/recommendations. L DBA documented in this encounter Miscellaneous Notes Encounter Documentation - Shavon Patel RN - 06/17/2016 3:00 PM MYSQL DBA Pt's PICC removed per order. Pt tolerated well, without incident. No pulling,tugging or resistance on removal. Pt instructed to leave dressing on, wait 24 hours before showering, no heavy lifting with UE for a few days. Length at removal charted under Vascular access tab/LDA. [place] pharmacist updated re same. L DBA documented in this encounter Plan of Treatment Not on filedocumented as of this encounter Visit Diagnoses Diagnosis Post-operative infection - Primary Other postoperative infection Staphylococcal infection Unspecified staphylococcus infection in conditions classified elsewhere and of unspecified site documented in this encounter Care Teams Honing Machine Operator Semiautomatic Relationship Specialty Start Date End Date Anup Evans MD PCP - General Internal Medicine 02/23/[address] [place] [address] Dr Pérez [facility] [place] [address] [facility] PCP - Primary Care Clinic [address] [place] [address] DR PÉREZ [address] [place], [place] [address] [address] Francesco Bonner MD 08/11/13 documented as of this encounter
--- OUTSIDE RECORDS SUMMARY | 2022-02-13 11:40 | XMS_ITS | Encounter Summary ---
:1940 Author Organization [facility] Address [address] [place] [address] Care Team Providers Name Role Phone Francesco Bonner MD Unavailable Unavailable Anup Evans MD Primary Care Provider [facility] Unavailable [phone] Reason for Visit Reason Comments F/U Visit Encounter Details Date Type Department Care Team Description 05/20/2017 Office Visit [facility] Anup Evans, ASCVD (ar teriosclerotic cardiovascular disease) (Primary Dx); [facility] - Pulmonary nodule; [address] Hypercholesterolemia; [facility] [address] Trigger finger of right thumb [address] [place] [address] [phone] Social History Tobacco Use Types Packs/Day Years [...] Sign Reading Time Taken Comments Blood Pressure 118/60 05/20/2017 9:25 AM OFFICE MACHINES SALES REPRESENTATIVE Pulse 76 05/20/2017 9:25 AM OFFICE MACHINES SALES REPRESENTATIVE Temperature 36.4 ??C (97.5 ??F) 05/20/2017 9:25 AM OFFICE MACHINES SALES REPRESENTATIVE Respiratory Rate - - Oxygen Saturation 96% 05/20/2017 9:25 AM OFFICE MACHINES SALES REPRESENTATIVE Inhaled Oxygen Concentration - - Weight 73 kg (161 lb) 05/20/2017 9:25 AM OFFICE MACHINES SALES REPRESENTATIVE Height - - Body Mass Index 28.52 07/10/2016 9:30 AM OFFICE MACHINES SALES REPRESENTATIVE documented in this encounter Progress Notes Anup Evans MD - 05/20/2017 9:30 AM CST Jennifer Cole is a pleasant 77 y.o. year old female seen with [facility] on 05/20/17. CHIEF COMPLAINT: Follow-up recent ER visit due to chest pain HPI: She was seen at [facility]. She had evaluation with a CT coronary angiogram. She did have evidence of some mild stenosis of the left anterior descending artery. Her calcium scorewas 188.5. Her Crestor was increased from 5-10 mg daily. There was a small pulmonary nodule 5??3 mm in the right middle lobe. This had not been seen on a prior CT August 2013. She continues to use tobacco products. Her chest pain spontaneously resolved. There has been no recurrence. It was felt to be noncardiac. She has noted some discomfort involving the right thumb with some clicking with flexion and extension. ACTIVE PROBLEM LIST: Diagnosis ??? ASCVD (arteriosclerotic cardiovascular disease) 05/07/17 CORONARY [...] left arm) ??? PAD (peripheral artery disease) ([facility]) 12/13 Study reveals the following: There [...] Tab Take 500 mcg by mouth daily diclofenac sodium 1 % Top gel Apply 4 g to skin four times a day as needed. rosuvastatin (CRESTOR) 20 mg oral tablet Take 1 tablet (20 mg) by mouth at bedtime. triamterene-hydrochlorothiazide (MAXZIDE) 37.5-25 mg oral tablet TAKE ONE TABLET BY MOUTH ONCE DAILY Allergies Allergen Reactions ??? Atorvastatin ??? Percocet [Oxycodone-Acetaminophen] Itching Severe itching PHYSICAL EXAM: BP 118/60 Pulse 76 Temp 97.5 ??F (36.4 ??C) (Oral) Wt 73 kg (161 lb) SpO2 96% BMI 28.52 kg/m?? General: The patient is pleasant and interactive. Speech is fluent. Cardiovascular: The heart tones are regular. There are no murmurs. Respiratory: The lung sounds are clear. There is normal respiratory effort. Musculoskeletal: Joints are without tenderness, redness, warmth, or effusions. There is findings consistent with a right trigger thumb. Dermatologic: Visualized skin is clear. There is no lower extremity edema. Neurologic: Neurologic examination is nonfocal. Lymphatics: There is no palpable lymphadenopathy. IMPRESSION: 1. ASCVD (arteriosclerotic cardiovascular disease) 2. Pulmonary nodule 3. Hypercholesterolemia 4. Trigger finger of right thumb PLAN: I reviewed studies in detail with her. Her daughter was also present. Increase Crestor to 20 mg daily. Potential risks and side effects of medication use are discussed with her. She is encouraged to stop smoking. Repeat CT chest in 6 months. Conservative treatment measures were discussed regarding thetrigger thumb. If there are ongoing concerns, she may return for consideration of injection. Above was discussed at length with her and questions were answered. She was comfortable and in agreement with the plan. She will contact the clinic with updates in status as needed. CE MACHINES SALES REPRESENTATIVE documented in this encounter Plan of Treatment Not on filedocumented as of this encounter Visit Diagnoses Diagnosis ASCVD (arteriosclerotic cardiovascular d isease) - Primary Unspecified cardiovascular disease Pulmonary nodule Solitary pulmonary nodule Hypercholesterolemia Pure hypercholesterolemia Trigger finger of right thumb documented in this encounter Care Teams Loose Hand Packer Relationship Specialty Start Date End Date Anup Evans MD PCP - General Internal Medicine 02/23/[address] [place] [address] Dr Pérez [facility] Internal Medicine [place], [place] [id number] Chauncey Bill PCP - Primary Care Clinic Clinic-[address] PÉREZ [facility] [place] [address] Francesco Bonner MD 08/11/13 documented as of this encounter
--- OUTSIDE RECORDS SUMMARY | 2022-02-13 11:40 | XMS_ITS | Encounter Summary ---
:1940 Author Organization [facility] Address [address] [facility] [place] [address] Care Team Providers Name Role Phone Francesco Bonner MD Unavailable Unavailable Anup Evans MD Primary Care Provider [facility] Unavailable [phone] Reason for Visit Reason Comments Skin Problem Encounter Details Date Type Department Care Team Description 11/07/2017 Emergency [facility] Emergency Department [address] [place] [address] Social History Tobacco Use Types Packs/Day [...] documented as of this encounter ED Notes Ciara Carlos RN - 11/07/2017 7:14 PM CDT Pt decided to go to [place] ED with family. LWBS. David Salcedo RN - 11/07/2017 5:45 PM CDT Presents to triage with son for c/o rash. Woke up at 0330 with hands and feet that felt they were burning. Went to this morning, pt given vistaril as they said it was a rash. Vistaril made her sleepy. Same rash is noticeable on chest and arm pit area. It itches. No new meds. Has not been outside, her son is leveling the dirt/ground to her home. documented in this encounter Plan of Treatment Not on filedocumented as of this encounter Visit Diagnoses Not on filedocumented in this encounter Care Teams Equipment Driver Relationship Specialty Start Date End Date Anup Evans MD PCP - General Internal Medicine 02/23/[address] [place] [address] Dr Pérez [facility] [place] [address] [facility] PCP - Primary Care Clinic Clinic-[address] PÉREZ [address] [place] [address] Francesco Bonner MD 08/11/13 documented as of this encounter
--- OUTSIDE RECORDS SUMMARY | 2022-02-13 11:40 | XMS_ITS | Encounter Summary ---
:1940 Author Organization [facility] Address [address] [place] [address] Care Team Providers Name Role Phone Francesco Bonner MD Unavailable Unavailable Anup Evans MD Primary Care Provider [facility] Unavailable [phone] Reason for Visit Reason Comments Follow up BP Encounter Details Date Type Department Care Team Description 09/17/2016 Office Visit [facility] Anup Evans Es sential hypertension (Primary Dx); Clinic - Rebeca Bill MD Hypercholesterolemia; [address] Plata property accountant use [address] [place], [place] [address] Internal Medicine [phone] [place] [address] Social History Tobacco Use Types Packs/Day Years [...] Sign Reading Time Taken Comments Blood Pressure 148/50 09/17/2016 9:42 AM CDT Pulse 76 09/17/2016 9:40 AM CDT Temperature 36.6 ??C (97.9 ??F) 09/17/2016 9:40 AM CDT Respiratory Rate - - Oxygen Saturation 98% 09/17/2016 9:40 AM CDT Inhaled Oxygen Concentration - - Weight 69 kg (152 lb 1.6 oz) 09/17/2016 9:40 AM CDT Height - - Body Mass Index 26.94 07/10/2016 9:30 AM CATCH BASIN CLEANER documented in this encounter Progress Notes Anup Evans MD - 09/17/2016 9:30 AM CDT Jennifer Cole is a pleasant 76 y.o. year old female seen with [facility] on 09/17/16. CHIEF COMPLAINT: Follow-up general medical status and problems. HPI: She has noted some occasional leg cramping at night. It is not severe. She notes no upper or lower extremity claudication symptoms. She continues to smoke. She is not interested in pursuing tobacco cessation. Amlodipine had been added when she was last seen in the clinic. She is taking the medication daily as prescribed. She notes no medication side effects or intolerances. She has no edema. Shehas been using the atorvastatin sporadically. She says that she would be okay with taking it daily. She has no chest pains or heart palpitations. No respiratory concerns. ACTIVE PROBLEM LIST: Diagnosis ??? Hypercholesterolemia ??? [...] use Yes Comment: Occasional Current Outpatient Prescriptions: amLODIPine (NORVASC) 5 mg oral tablet Take 1 tablet (5 mg) by mouth once daily. aspirin 81 mg oral enteric coated tablet Take 81 mg by mouth once daily. atorvastatin (LIPITOR) 10 mg oral tablet Take 1 tablet (10 mg) by mouth once daily. cyclobenzaprine (FLEXERIL) 5 mg oral tablet Take 1 tablet (5 mg) by mouth every 8 (eight) hours as needed. Allergies Allergen Reactions ??? Percocet [Oxycodone-Acetaminophen] Itching Severe itching PHYSICAL EXAM: BP (!) 148/50 (BP Cuff Site: Left arm, BP Cuff Position: Sitting, BP Cuff Size: Regular adult) Pulse 76 Temp 97.9 ??F (36.6 ??C) (Oral) Wt 69 kg (152 lb 1.6 oz) SpO2 98% BMI 26.94 kg/m?? General: The patient is pleasant and interactive. Speech is fluent. Cardiovascular: The heart tones are regular. There are no significant murmurs. Respiratory: The lung sounds are clear. There is normal respiratory effort. Dermatologic: Visualized skin is clear. There is no lower extremity edema. Lymphatics: There is no palpable lymphadenopathy. IMPRESSION: 1. Essential hypertension 2. Hypercholesterolemia 3. Tobacco use PLAN: She is encouraged to stop smoking. The amlodipine will be increased to 5 mg daily. Atorvastatin is refilled. She will take her medications once a day at the same time. She will return to clinic for follow-up in January. Above was discussed at length with her and questions were answered. documented in this encounter Plan of Treatment Not on filedocumented as of this encounter Visit Diagnoses Diagnosis Essential hypertension - Primary Unspecified essential hypertension Hypercholesterolemia Pure hypercholesterolemia Tobacco use Tobacco use disorder documented in this encounter Care Teams Clinical Education Specialist Relationship Specialty Start Date End Date Anup Evans MD PCP - General Internal Medicine 02/23/[address] [place] [address] Dr Pérez [facility] [place] [address] Chauncey Bill [facility] PCP - Primary Care Clinic Clinic-[address] P[address]REZ [facility] [place] [address] Francesco Bonner MD 08/11/13 documented as of this encounter
--- OUTSIDE RECORDS SUMMARY | 2022-02-13 11:40 | XMS_ITS | Encounter Summary ---
:1940 Author Organization [facility] Address [address] [place] [address] Care Team Providers Name Role Phone Francesco Bonner MD Unavailable Unavailable Anup Evans MD [facility] [phone] Reason for Referral (Routine) - Closed Specialty Diagnoses / Procedures Referred By Contact Refer red To Contact Diagnoses Essential hypertension Anup Evans MD Procedures LIPID PROFILE CASCADE [address] [place] [address] [address] Internal Medicine [place], [place] [address] Referral ID Status Reason Start Date Expiration Date Visits Requ ested Visits Authorized [id number] Closed 07/10/2016 01/06/2017 1 1 ASSISTANT Reason for Visit Reason Comments Follow up Left side ?? Encounter Details Date Type Department Care Team Description 07/10/2016 Office Visit [facility] Anup Evans Es sentimalcolm hypertension (Primary Dx); Clinic - Rebeca Bill MD PAD (peripheral artery disease) (HCC); [address] Schmitt metric blood pressures; [address] [place] [address] Internal Medicine [phone] [place] [address] Social History Tobacco Use Types Packs/Day Years [...] Sign Reading Time Taken Comments Blood Pressure 104/72 07/10/2016 9:30 AM CASE ASSISTANT Pulse 95 07/10/2016 9:30 AM CASE ASSISTANT Temperature 36.4 ??C (97.6 ??F) 07/10/2016 9:30 AM CASE ASSISTANT Respiratory Rate - - Oxygen Saturation 95% 07/10/2016 9:30 AM CASE ASSISTANT Inhaled Oxygen Concentration - - Weight 68.5 kg (151 lb) 07/10/2016 9:30 AM CASE ASSISTANT Height 160 cm (5' 3) 07/10/2016 9:30 AM CASE ASSISTANT Body Mass Index 26.75 07/10/2016 9:30 AM CASE ASSISTANT documented in this encounter Progress Notes Anup Evans MD - 07/10/2016 10:00 AM CST Jennifer Cole is a pleasant 76 y.o. year old female seen with [facility] on 07/10/16. CHIEF COMPLAINT: Concern regarding upper extremity blood pressure asymmetry HPI: She had undergone back surgery in April. She suffered a postoperative infection. She required IV antibiotic therapy which she recently completed. She had followed up with infectious disease. She notes asymmetry of her blood pressures in the upper extremities. She notes that the left side has been higher than the right. She believes that this is been going on for around 15 years. She is right-handed. She has no weakness or claudication symptoms involving the right upper extremity. She continues to use tobacco products. She is not interested in pursuing tobacco cessation. ACTIVE PROBLEM LIST: Diagnosis ??? Asymmetric blood pressures L>R (Check BP on left arm) ??? PAD (peripheral artery disease) (HCC) ??? Essential hypertension ??? Tobacco use Past Surgical History Procedure Laterality Date ??? Hx cholecystectomy 1971 ??? Hx back surgery Right 09/02/2013 L5-S1 hemilaminectomy + discectomy ??? Hx breast surgery Right 1996 Cyst resection ??? Hx lumbar laminectomy 04/2016 L5-S1 Family History Problem Relation Age [...] Comment: Occasional Current Outpatient Prescriptions: amLODIPine (NORVASC) 2.5 mg oral tablet Take 1 tablet (2.5 mg) by mouth once daily. aspirin 81 mg oral enteric coated tablet Take 81 mg by mouth once daily. cyclobenzaprine (FLEXERIL) 5 mg oral tablet Take 1 tablet (5 mg) by mouth every 8 (eight) hours as needed. Allergies Allergen Reactions ??? Percocet [Oxycodone-Acetaminophen] Itching Severe itching PHYSICAL EXAM: BP 104/72 Pulse 95 Temp 97.6 ??F (36.4 ??C) (Oral) Ht 1.6 m (5' 3) Wt 68.5 kg (151 lb) SpO2 95% BMI26.75 kg/m2 blood pressure left upper extremity 154/70 and then on repeat 148/74. Right upper extremity blood pressure 118/76 and on repeat 112/72. General: The patient is pleasant and interactive. Speech is fluent. HEENT: The conjunctiva are moist and clear. Mouth and oropharynx are moist and clear. Cardiovascular: The heart tones are regular. There are no murmurs. There is a right supraclavicular bruit. Her pedal pulses are palpable and symmetric. Respiratory: The lung sounds are clear. There is normal respiratory effort. Gastrointestinal: There is no abdominal tenderness, masses, or organomegaly. Musculoskeletal: Joints are without tenderness, redness, warmth, or effusions. Dermatologic: Visualized skin is clear. There is no lower extremity edema. Lymphatics: There is no palpable lymphadenopathy. IMPRESSION: 1. Essential hypertension 2. PAD (peripheral artery disease) (HCC) 3. Asymmetric blood pressures 4. Tobacco use PLAN: I reviewed a previously obtained CT pulmonary angiogram with radiology. There was some proximal right subclavian artery narrowing and some plaque identified. Reviewed with vascular cardiology. She is encouraged to stop smoking. We will place her on amlodipine to half milligrams daily. Add aspirin 81 mg daily. Lipid profile was obtained today. I discussed with her symptoms that she should monitor for.Return for follow-up in 3 months. ASSISTANT Anup Evans MD - 07/10/2016 10:00 AM CST Labs discussed with the patient. She declines adding a cholesterol-lowering medication at this time. ASSISTANT documented in this encounter Plan of Treatment Not on filedocumented as of this encounter Procedures Procedure Name Priority Date/Time Associated Diagnosis Comme nts LIPID PROFILE Routine 07/10/2016 10:28 Essential Results fo r this CASCADE AM CASE ASSISTANT hypertension procedure are i n the results section. documented in this encounter Results (ABNORMAL) LIPID PROFILE CASCADE (07/10/2016 10:28 AM CASE ASSISTANT) [facility] gist Method Time Signature SPECIMEN TYPE Fasting 07/10/2016 [facility] 3:04 PM CASE ASSISTANT LABORATORY CHOLESTEROL 248 (H) <200 07/10/2016 [facility] mg/dL 3:04 PM CASE ASSISTANT LABORATORY TRIGLYCERIDES 86 <150 07/10/2016 [facility] PROFILE mg/dL 3:04 PM CASE ASSISTANT LABORATORY LDL CHOL, CALC 144 (H) <100 07/10/2016 [facility] mg/dL 3:04 PM CASE ASSISTANT LABORATORY HDL CHOLESTEROL 87 >40 mg/dL 07/10/2016 [facility] CASE ASSISTANT LABORATORY CHOL/HDL RATIO 2.9 0.0 - 4.9 07/10/2016 [facility] 3:04 PM CASE ASSISTANT LABORATORY Specimen Anatomical Collection Method / Collection Time Recei lisa Time (Source) Location / Volume Laterality Blood Venipuncture / 07/10/2016 10:28 7 Unknown AM CASE ASSISTANT 10:28 AM CASE ASSISTANT Narrative [facility] LABORATORY - 07/10/2016 3 :04 PM CASE ASSISTANT LDL CHOLESTEROL REFERENCE RANGES: (FOR PATIENTS W/O HEART DISEASE) <100 mg/dL = Optimal 100-129 mg/dL = Near/Above Optimal 130-159 mg/dL = Borderline High 160-189 mg/dL = High >/= 190 mg/dL = Very High Anup Evans MD CHEMISTRY ORDERABLE Performing Organization Address City/State/ZIP Code Phon e Number [facility] [address] [facility] [place] [address] [phone] LAB[facility]ATORY [facility] [address] [facility] [place] [phone] documented in this encounter Visit Diagnoses Diagnosis Essential hypertension - Primary Unspecified essential hypertension PAD (peripheral artery disease) (HCC) Peripheral vascular disease, unspecified Asymmetric blood pressures Other abnormal clinical finding Tobacco use Tobacco use disorder documented in this encounter Care Teams Footwear Sales Representative Relationship Specialty Start Date End Date Anup Evans MD PCP - General Internal Medicine 02/23/[address] [place] [address] Dr Pérez [facility] [place] [address] [facility] PCP - Primary Care Clinic [address] [place] [address] DR [address] [facility] [place] [address] Francesco Bonner MD 08/11/13 documented as of this encounter
--- OUTSIDE RECORDS SUMMARY | 2022-02-13 11:41 | XMS_ITS | Encounter Summary ---
:1940 Author Organization [facility] Address [address] [place] [id number] Care Team Providers Name Role Phone Francesco Bonner MD Unavailable Unavailable Anup Evans MD Primary Care Provider [facility] Unavailable [phone] Reason for Referral (Routine) - Closed Specialty Diagnoses / Procedures Referred By Contact Refer red To Contact Diagnoses Preop examination Katelynn Quintero MD Procedures BASIC METAB PROFILE [address] [place] [address] Dr [facility] [place], [place] [address] Referral ID Status Reason Start Date Expiration Date Visits Requ ested Visits Authorized [id number] Closed 04/16/2016 10/13/2016 1 1 L BLOCK PRESS OPERATOR (Routine) - Closed Specialty Diagnoses / Procedures Referred By Contact Refer red To Contact Diagnoses Preop examination Katelynn Quintero MD Procedures CBC (HGB,HCT,WBC,RBC,PLATELET) [address] [place] [address] Dr Berman [facility] [place], [place] [address] Referral ID Status Reason Start Date Expiration Date Visits Requ ested Visits Authorized [id number] Closed 04/16/2016 10/13/2016 1 1 L BLOCK PRESS OPERATOR Reason for Visit Reason Comments Pre Op exam 04/22/16 back surgery with Darryl Lucia at [facility] Encounter Details Date Type Department Care Team Description 04/16/2016 Office Visit [facility] Us amanda Quintero MD Preop examination Clinic - [address] (Primary Dx) [address] [facility] [address] Internal Medicine [place], [place] [address] [place], [place] [phone] (Wo rk) Social History Tobacco Use Types Packs/Day Years Used Date Smoking Tobacco: Every Day Cigarettes 1 Smokeless Tobacco: Never Alcohol Use Standard Drinks/Week [...] Sign Reading Time Taken Comments Blood Pressure 124/80 04/16/2016 9:53 AM FINAL BLOCK PRESS OPERATOR Pulse 74 04/16/2016 9:53 AM FINAL BLOCK PRESS OPERATOR Temperature 36.5 ??C (97.7 ??F) 04/16/2016 9:53 AM FINAL BLOCK PRESS OPERATOR Respiratory Rate - - Oxygen Saturation 95% 04/16/2016 9:53 AM FINAL BLOCK PRESS OPERATOR Inhaled Oxygen Concentration - - Weight 69.9 kg (154 lb 3.2 oz) 04/16/2016 9:53 AM FINAL BLOCK PRESS OPERATOR Height 158.8 cm (5' 2.5) 04/16/2016 9:53 AM FINAL BLOCK PRESS OPERATOR Body Mass Index 27.75 04/16/2016 9:53 AM FINAL BLOCK PRESS OPERATOR documented in this encounter Progress Notes Katelynn Quintero MD - 04/16/2016 11:05 AM CST L BLOCK PRESS OPERATOR Katelynn Quintero MD - 04/16/2016 11:02 AM CST CC: Matias Lucia MD Requesting Physician: Matias Lucia MD CHIEF COMPLAINT: Preoperative evaluation for L5-S1 laminectomy. Requesting provider, Dr. Lucia, scheduled on April 22, 2016, at [facility]. HPI: The patient is a 75-year-old female with no significant past medical history who comes in today for a preoperative evaluation. She had a lumbar diskectomy in 2013. She states that she was doing fine until a few months back. She has been having some low back pain, left worse than the right side. She has seen Dr. Evans in February 2016 and had an MRI done. After that she followed upwith Dr. Lucia, her neurosurgeon. She is planned for the above procedure. She denies any chest pain, shortness of breath. She denies nausea, vomiting or abdominal discomfort.She denies any recent fever or chills. She denies any bowel or bladder problems. She denies any anesthesia or bleeding complications with the previous surgeries. She denies any history of heart problems, diabetes, stroke or renal insufficiency in the past. REVIEW OF SYSTEMS: Comprehensive review of systems obtained, all are negative except as mentioned inthe HPI. ALLERGIES: No known medication allergies. MEDICATIONS: Ibuprofen as needed. PAST MEDICAL HISTORY: 1. Right subclavian stenosis. She had peripheral vascular disease workup which turned out to be negative. 2. Lumbar diskectomy in 2013. 3. Cholecystectomy in 1970. 4. Left breast cyst removal in 1989. 5. Chronic smoking. SOCIAL HISTORY: She is with seven kids. Continues to smoke one pack per day. She has been smoking for the past 40 years. Denies any illicit drug use. Denies any alcohol use. FAMILY HISTORY: She is adopted. She does not know much about her biological parents. PHYSICAL EXAMINATION: VITAL SIGNS: Blood pressure 124/80 mmHg, heart rate 74, and temperature 97.7 degrees Fahrenheit. Saturation is 95% on room air. GENERAL: Alert and awake, appears to be in no acute distress. HEENT: Head atraumatic, normocephalic. Eyes: Pupils round and reactive to light and accommodation. Mouth: No oral mucosal lesions or erythema are noted. NECK: Supple, no thyromegaly. No cervical lymphadenopathy noted. HEART: S1, S2, regular. LUNGS: Clear to auscultation bilaterally. No rales or rhonchi noted. ABDOMEN: Soft, nondistended, and nontender. EXTREMITIES: No edema. DIAGNOSTIC DATA: EKG done today shows sinus rhythm with a ventricular rate of 61 beats per minute. No acute ST-T wave changes noted. ASSESSMENT AND PLAN: 1. Preoperative evaluation for lumbar laminectomy. 2. Tobacco use. She is going for an intermediate risk procedure. She doesn't have any cardiac risk factors. She is medically optimized to go ahead with the proposed procedure. A CBC and basic panel will be obtained today. She is recommended to stop ibuprofen and Motrin and Aleve and other NSAIDs a week prior to the procedure. She doesn't need to take any medication on the morning of the procedure. She is counseled on smoking cessation. Offered Zyban or Chantix. She would like to do it cold turkey. Patient is explained the risks and side effects of smoking. Follow-up with primary in a month or earlier if needed. Katelynn Quintero MD /CD Dictation ID: [id number] L BLOCK PRESS OPERATOR Katelynn Quintero MD - 04/16/2016 10:00 AM CST This office note has been dictated. L BLOCK PRESS OPERATOR documented in this encounter Plan of Treatment Not on filedocumented as of this encounter Procedures Procedure Name Priority Date/Time Associated Diagnosis Comme nts BASIC METAB PROFILE Routine 04/16/2016 10:24 AM Preop examinat ion Results for this FINAL BLOCK PRESS OPERATOR procedure are i n the results section. CBC Routine 04/16/2016 10:24 AM Preop examination Res ults for this (HGB,HCT,WBC,RBC,PL FINAL BLOCK PRESS OPERATOR procedur e are in ATELET) the results section. EKG WITH Routine 04/16/2016 10:24 AM Preop examination Res ults for this INTERPRETATION/REPO FINAL BLOCK PRESS OPERATOR procedur e are in RT the results section. documented in this encounter Results BASIC METAB PROFILE (04/16/2016 10:24 AM FINAL BLOCK PRESS OPERATOR) P athologist Signature SODIUM 142 136 - 145 04/16/2016 [facility] mMol/L 7:05 PM FINAL BLOCK PRESS OPERATOR LABORATORY POTASSIUM 3.9 3.5 - 5.1 04/16/2016 [facility] mMol/L 7:05 PM FINAL BLOCK PRESS OPERATOR LABORATORY CHLORIDE 107 98 - 112 04/16/2016 [facility] mMol/L 7:05 PM FINAL BLOCK PRESS OPERATOR LABORATORY CARBON DIOXIDE 27 21 - 32 04/16/2016 [facility] mMol/L 7:05 PM FINAL BLOCK PRESS OPERATOR LABORATORY BUN (UREA 12 7 - 24 04/16/2016 [facility] NITRO) mg/dL 7:05 PM FINAL BLOCK PRESS OPERATOR LABORATORY CREATININE 0.83 0.55 - 04/16/2016 [facility] 1.02 mg/dL 7:05 PM FINAL BLOCK PRESS OPERATOR LABORATORY EST GFR >60 >60 mL/min 04/16/2016 [facility] (CKD-EPI) 7:05 PM FINAL BLOCK PRESS OPERATOR LABORATORY EST GFR IF >60 >60 mL/min 04/16/2016 [facility] AM 7:05 PM FINAL BLOCK PRESS OPERATOR LABORATORY GLUCOSE 90 74 - 106 04/16/2016 [facility] mg/dL 7:05 PM FINAL BLOCK PRESS OPERATOR LABORATORY CALCIUM, SERUM 9.3 8.5 - 10.1 04/16/[address] [facility]dL 7:05 PM FINAL BLOCK PRESS OPERATOR LABORATORY ANION GAP 8.0 0.0 - 15.0 04/16/2016 [facility] mMol/L 7:05 PM FINAL BLOCK PRESS OPERATOR LABORATORY Specimen Anatomical Collection Method / Collection Time Recei lisa Time (Source) Location / Volume Laterality Blood Venipuncture / 04/16/2016 10:24 6 Unknown AM FINAL BLOCK PRESS OPERATOR 10:24 AM FINAL BLOCK PRESS OPERATOR Katelynn Quintero MD CHEMISTRY ORDERABLE Performing Organization Address City/State/ZIP Code Phon e Number [address] [address] LABORATORY [facility] [address] [place], [place] [address] CBC (HGB,HCT,WBC,RBC,PLATELET) (04/16/2016 10:24 AM FINAL BLOCK PRESS OPERATOR) athologist Signature WBC 6.7 4.3 - 10.8 04/16/2016 [facility] K/uL 3:42 PM FINAL BLOCK PRESS OPERATOR LABORATORY RBC 4.36 4.20 - 04/16/2016 [facility] 5.40 M/uL 3:42 PM FINAL BLOCK PRESS OPERATOR LABORATORY HEMOGLOBIN 13.8 12.0 - 04/16/2016 [facility] 16.0 gm/dL 3:42 PM FINAL BLOCK PRESS OPERATOR LABORATORY HEMATOCRIT 41.7 36.0 - 04/16/2016 [facility] 48.0 % 3:42 PM FINAL BLOCK PRESS OPERATOR LABORATORY MCV 96 80 - 100 04/16/2016 [facility] fl 3:42 PM FINAL BLOCK PRESS OPERATOR LABORATORY MCH 32 27 - 33 pg 04/16/2016 [facility] 3:42 PM FINAL BLOCK PRESS OPERATOR LABORATORY MCHC 33 33 - 36 04/16/2016 [facility] gm/dL 3:42 PM FINAL BLOCK PRESS OPERATOR LABORATORY RDW 12.4 11.5 - 04/16/2016 [facility] 14.5 % 3:42 PM FINAL BLOCK PRESS OPERATOR LABORATORY PLATELET COUNT 229 150 - 400 04/16/2016 [facility] K/uL 3:42 PM FINAL BLOCK PRESS OPERATOR LABORATORY MPV 12.0 6.5 - 12.0 04/16/2016 [facility] 3:42 PM FINAL BLOCK PRESS OPERATOR LABORATORY Specimen Anatomical Collection Method / Collection Time Recei lisa Time (Source) Location / Volume Laterality Blood Venipuncture / 04/16/2016 10:24 6 Unknown AM FINAL BLOCK PRESS OPERATOR 10:24 AM FINAL BLOCK PRESS OPERATOR Katelynn Quintero MD HEMATOLOGY ORDERABLE Performing Organization Address City/State/ZIP Code Phon e Number [facility] [address] [place] [address] [phone] LABORATORY [facility] [address] [facility] [place] [address] EKG WITH INTERPRETATION/REPORT (04/16/2016 10:24 AM FINAL BLOCK PRESS OPERATOR) P athologist Signature EKG Impressions Christie Mccauley, DIRECTOR SUPPLY - 04/16/2016 10:2 4 AM FINAL BLOCK PRESS OPERATOR See EKG scan and report Katelynn Quintero MD CARDIO ORDERABLE documented in this encounter Visit Diagnoses Diagnosis Preop examination - Primary Preoperative examination, unspecified documented in this encounter Care Teams Salvage Repairer Relationship Specialty Start Date End Date Anpu Evans MD PCP - General Internal Medicine 02/23/[address] [place] [address] Dr Berman [facility] Medicine [place] [id number] Chauncey Bill PCP - Primary Care Clinic [address] [place] [address] [place] [id number] Francesco Bonner MD 08/11/13 documented as of this encounter
--- OUTSIDE RECORDS SUMMARY | 2022-02-13 11:41 | XMS_ITS | Encounter Summary ---
:1940 Author Organization [facility] Address [address] [place] [id number] Care Team Providers Name Role Phone Francesco Bonner MD Unavailable Unavailable Doctor, No Primary Care Provider Unavailable Clinic, No Primary Unavailable Unavailable Reason for Visit Reason Comments Cough Encounter Details Date Type Department Care Team Description 05/07/2014 Emergency [facility] Darryl Lowry MD Emergency Care [address] Ana Esquivel [address] [place] [id number] [place], [place] [address] [phone] Social History Tobacco Use Types Packs/Day Years Used Date Smoking Tobacco: Every Day Cigarettes 1 Smokeless Tobacco: Never Tobacco Cessation: Ready to Quit: No Alcohol Use Standard Drinks/Week Comments No 0 (1 standard drink = 0.6 oz pure alcoho l) occasional Alcohol Habits Answer Date Recorded How often [...] Sign Reading Time Taken Comments Blood Pressure 94/65 05/07/2014 5:31 PM LAST DIPPER Pulse 88 05/07/2014 5:41 PM LAST DIPPER Temperature - - Respiratory Rate 16 05/07/2014 5:41 PM LAST DIPPER Oxygen Saturation 94% 05/07/2014 5:41 PM LAST DIPPER Inhaled Oxygen Concentration - - Weight - - Height - - Body Mass Index - - documented in this encounter Discharge Instructions Discharge InstructionsDamargarita Lowry MD - 05/07/2014 7:13 PM CST Take tamiflu twice daily for 5 days. Rest and drink plenty of fluids. Recheck with your primary MD as needed for failure to improve. Use inhaler as needed for wheezing. Recheck in ER if needed for worsening symptoms, difficulty breathing, or other acute problems. DIPPER AttachmentsThe following attachments cannot be sent through Care Everywhere. INFLUENZA, ADULT (SCOTTISH)SMOKING HAZARDS (SCOTTISH)documented in this encounter Medications at Time of Discharge Medication Sig Dispensed Refills Start Date End Date acyclovir 5% (ZOVIRAX) 5 Apply 1 g to skin 0 08/3104/16/2016 % Top Oint five times a day. albuterol HFA 90mcg/puff 2 Puffs by 1 Inhaler 0 05/07/2014 04/16/2016 (PROVENTIL;VENTOLIN HFA) Inhalation route 90 mcg/actuation Inhl every 4 (four) hours as needed for Shortness of breath or Wheezing. albuterol HFA 90mcg/puff 2 Puffs by 1 Inhaler 1 09/10/2013 04/16/2016 (PROVENTIL;VENTOLIN HFA) Inhalation route 90 mcg/actuation Inhl every 4 (four) hours as needed for Shortness of breath. use a holding chamber/spacer cyclobenzaprine Take 10 mg by mouth 0 08/09/2013 04/16/2016 (FLEXERIL) 10 mg Oral Tab three times a day as needed. levofloxacin (LEVAQUIN) Take 1 Tab by mouth 7 Tab 0 04/201404/16/2016 750 mg Oral Tab Once Daily. NO MEDICATIONS 0 04/16/2016 oseltamivir (TAMIFLU) 75 Take 1 Cap by mouth 10 Cap 0 05/11/2014 mg Oral Cap Twice a Day. oxyCODONE-acetaminophen Take 1-2 Tabs by 0 04/16/2016 (PERCOCET) 5-325 mg Oral mouth every four (4) Tab to six (6) hours as needed for Pain. documented as of this encounter Progress Notes Alyssa Jiménez RT - 05/07/2014 5:42 PM CST [facility] Assess & Treat Protocol Initiation Situation: RT called to assess patient in [facility] for cough/fever. Background: Pt presents to [facility] with complaint of cough and fever. Recent exposure to son who had influenza. Pt is a current pack a day smoker, has no interest in quitting. States she does not have COPDor asthma. Pt does not use any home neb/ inhaler. Assessment/Plan:Pt alert, appropriate. RR- WNL, SpO2>95% on RA. No distress noted. BS- diminished, pt moving good air. Intermittent fine wheezing noted throughout RUL/VIOLETA. Given duox1, increase in aeration. BP 94/65 Pulse 88 Resp 16 SpO2 94% O2 LPM: (not recorded) History Substance Use Topics ??? Smoking status: Current Every Day Smoker -- 1.00 packs/day Types: Cigarettes ??? Smokeless tobacco: Never Used ??? Alcohol Use: No Comment: occasional Oxygenation: Within normal limits Bronchospasm: Bronchospasm or bronchoconstriction and Cough/chest tightness Secretion/Hyperinflation: Within normal limits Aeration/Ventilation: Within normal limits Diagnostics Utilized: Imaging, Pulse oximetry and Subjective/Objective Assessment Interventions Initiated: Bronchodilator via neb or MDI Recommendation: Respiratory will continue to follow as needed. Alyssa Jiménez, RT DIPPER documented in this encounter ED Notes Fartun Lombardo RN - 05/07/2014 7:35 PM CST Tamilflu script for spouse given. DIPPER Fartun Lombardo RN - 05/07/2014 7:24 PM CST [facility] DISCHARGE SBAR S: Situation Patient ready for discharge. Rating pain at 0/Comfort goal of 0. Patient denies any complaints or needs at time of discharge. BP 94/65 Pulse 88 Resp 16 SpO2 94% Patient appears in no acute distress. A: Assessment Patient discharged ambulatory to home at 1930 escorted by son. Discharge instructions and arrangement include: Verbal and written Patient/family response: Verbal understanding voiced R: Recommendation Patient recommended to follow up as instructed by ECC provider. Patient and/family verbalized understanding of information. DIPPER Fartun Lombardo RN - 05/07/2014 7:04 PM CST Son requests IV for hydration. Patient refuses, wants to go home. MD at bedside, awaiting Tamiflu dose DIPPER Oscar Lowry MD - 05/07/2014 5:02 PM CST Chief Complaint: Cough HPI Initial history obtained at 5:02 PM 05/07/2014 Jennifer Cole is a 74 y.o. female with a history of chronic tobacco abuse who presents to the EDwith her son for an evaluation of cough. The patient states she began experiencing a productive cough, nasal congestion, myalgias, headaches and fevers last evening. She also endorses nausea without emesis. The patient reports she had back surgery last July and says her back has been doing well. Her son explains he was diagnosed with influenza this past week so the patient is concerned she has this. The patient denies any significant sore throat. She denies any chest pain, shortness of breath, abdominal pain, or any other concerns or complaints at this time. Medications: acyclovir 5% (ZOVIRAX) 5 % Top Oint levofloxacin (LEVAQUIN) 750 mg Oral Tab albuterol HFA 90mcg/puff (PROVENTIL;VENTOLIN HFA) 90 mcg/actuation Inhl cyclobenzaprine (FLEXERIL) 10 mg Oral Tab oxyCODONE-acetaminophen (PERCOCET) 5-325 mg Oral Tab Allergies: NKDA Past Medical History: Lumbar disc herniation with radiculopathy Cough Glucosuria Pneumonia Past Surgical History: Cholecystectomy Breast surgery procedure, cyst taken off right side. Back surgery Family History: The patient has no past pertinent family history. Social History Single. Current everyday smoker, 1 pack/day. Occasional alcohol use. Denies drug use. Review of Systems A full ten point review of systems was performed and was negative except for which is noted in the HPI above. Physical Exam: Initial ED Vitals Temperature: 98.8 ??F (37.1 ??C) Pulse: 96 Respirations: 20 BP: 106/62 mmHg SpO2: 96 % Physical Exam Nursing note and vitals reviewed. Constitutional: She is oriented to person, place, and time. Mildly chronically ill appearing. HENT: Head: Normocephalic. Mouth/Throat: Oropharynx is clear and moist. Nasal congestion. Eyes: Conjunctivae and EOM are normal. Pupils are equal, round, and reactive to light. Neck: Normal range of motion. Neck supple. No JVD present. No thyromegaly present. Cardiovascular: Normal rate, regular rhythm and normal heart sounds. No murmur heard. Pulmonary/Chest: She has no rales. Dyspneic. Mild to moderate respiratory distress with wet cough. Expiratory wheezes. Generally good air entry. Abdominal: Soft. She exhibits no distension and no mass. There is no tenderness. There is no reboundand no guarding. Musculoskeletal: She exhibits no edema. Neurological: She is alert and oriented to person, place, and time. Skin: Skin is warm and dry. No rash noted. Psychiatric: She has a normal mood and affect. Her speech is normal. Imaging: PA/lateral chest x-ray: No active disease. No pneumonia. Per radiology. Laboratory: INFLUENZA A/B/H1N1 BY RAPID PCR: Positive for Influenza A (not H1N1) DNA by PCR. Negative for Influenza B. ED Course: Nursing notes and vitals reviewed. Electronic medical records reviewed. I examined the patient here in the emergency department, findings above. I discussed the plan with the patient who is agreeable with this. Labs sent as above. The patient was sent for the above imaging studies, see above for result s. I explained the results to the patient, and answered all of her questions. I reevaluated the patient. The patient was discharged home, status improved, with instructions regarding supportive care, medications, and appropriate follow up. Reasons to seek immediate medical attention were reviewed with the patient, who stated understanding. The patient was discharged in stable condition after all questions were answered. Please see below for further details. Interventions: albuterol-ipratropium (conc: 3-0.5mg/3mL) (DUO-NEB) nebulizer solution 3 mL (3 mL Inhalation Given 05/07/141730) predniSONE (DELTASONE) tablet 60 mg (60 mg Oral Given 05/07/141744) oseltamivir (TAMIFLU) capsule 75 mg (75 mg Oral Given 05/07/141911) Last ED Vitals Temp: 98.2 ??F (36.8 ??C) Pulse: 92 Resp: 20 BP: 144/73 mmHg SpO2: 97 % Impression: This is a 74 year old woman who was exposed to influenza by her son. She has chronic tobacco abuse and likely has some degree of COPD. Today her flu test is positive and she will be started on Oseltamivir. Her chest x-ray is negative and shows no evidence of pneumonia at this time. She will be startedon a 7 day course of Tamiflu, which will also be provided for her as preventative care as heis a dialysis patient. She was given a Duo-neb with some improvement. Her vital signs and oxygenation are adequate and she can be treated at home. She will be given an Albuterol inhaler to use at home on an as needed basis. Diagnosis: 1. Acute influenza. 2. Tobacco use. Disposition: Home. Plan: Follow up with a primary care physician or in ED as needed for worsening symptoms. Oseltamivir 75 mgBID for 5 days. Oscar Lowry MD Scribe Disclosure Statement I, Michelle Brooks, am serving as a scribe to document services personally performed by Dr Lowry based on my observations and the provider's statements to me. Michelle Brooks 05/07/2014 [facility] DIP[facility] Tim Carvajal RN - 05/07/2014 5:00 PM CST Pt presents to [facility] with complaint of cough and fever. Recent exposure to son who had influenza. DIPPER documented in this encounter Plan of Treatment Not on filedocumented as of this encounter Procedures Procedure Name Priority Date/Time Associated Diagnosis Comme nts XR CHEST PA & LAT STAT 05/07/2014 6:06 PM Resu lts for this LAST DIPPER procedure are i n the results section. INFLUENZA SCREEN BY STAT 05/07/2014 5:10 PM Re sults for this RAPID PCR (ID USE LAST DIPPER procedure are in ONLY) the results section. documented in this encounter Results XRAY CHEST PA/LATERAL (05/07/2014 6:06 PM LAST DIPPER) Anatomical Region Laterality Modality Chest Computed Radiography Specimen (Source) Anatomical Collection Method Collection Time Re ceived Time Location / / Volume Laterality 05/07/2014 6:14 PM LAST DIPPER Impressions 05/07/2014 6:14 PM LAST DIPPER IMPRESSION: No active disease. No pneumonia. Narrative 05/07/2014 6:14 PM LAST DIPPER EXAM: CHEST TWO VIEWS 05/07/2014 5:58 PM CLINICAL: Shortness of breath. Cough and fever, possible influenza. COMPARISON: 08/09/13. FINDINGS: Essentially clear lungs. No pn eumonia. ??No pleural abnormality. ??The cardiomediastinal silhouette is normal. Procedure Note Gianni Kellogg MD - 05/07/2014Forma tting of this note might be different from the original. EXAM: CHEST TWO VIEWS 05/07/2014 5:58 PM CLINICAL: Shortness of breath. Cough and fever, possible influenza. COMPARISON: 08/09/13. FINDINGS: Essentially clear lungs. No pn eumonia. No pleural abnormality. The cardiomediastinal silhouette is normal. IMPRESSION: No active disease. No pneumo wilver. Oscar Lowry MD XRAY ORDERABLE (ABNORMAL) Influenza A/B/H1N1 by Rapid PCR (05/07/2014 5:10 PM LAST DIPPER) [facility] Method Time Signature INFLUENZA Positive for No Influenza 05/07/2014 [place] A/B/H1N1 BY Influenza A A or B DNA 6:46 PM [facility]ST [facility] RAPID PCR (not H1N1) detected by DNA by PCR. PCR. Negative for Influenza B. (A) Specimen (Source) Anatomical Collection Method Collection Time Re ceived Time Location / / Volume Laterality Specimen from 05/07/2014 5:10 05/07/2014 nasopharyngeal PM LAST DIPPER 5:25 PM LAST DIPPER structure (specimen) Oscar Lowry MD MICROBIOLOGY ORDERABLE Performing Organization Address City/State/ZIP Code Phon e Number [facility] [address] [place] [address] documented in this encounter Visit Diagnoses Diagnosis Influenza - Primary Influenza with other respiratory manifes tations Tobacco use Tobacco use disorder documented in this encounter Administered Medications Inactive Administered Medications - up to 3 most recent administrations Medication Order MAR Action Action Date Dose Rate Site albuterol-ipratropium (conc: Given 05/07/2014 5:31 PM LAST DIPPER 3 mL 3-0.5mg/3mL) (DUO-NEB) nebulizer solution 3 mL 3 mL (1 ampule), Inhalation, ONCE, 1 dose, On 05/07/14 at 1715 oseltamivir (TAMIFLU) capsule 75 mg Given 05/07/2014 7:12 PM LAST DIPPER 75 mg 75 mg, oral, ONCE, 1 dose, On 05/07/14 at 1900 predniSONE (DELTASONE) tablet 60 mg Given 05/07/2014 5:45 PM LAST DIPPER 60 mg 60 mg, oral, ONCE, 1 dose, On 05/07/14 at 1715 documented in this encounter Active and Recently Administered Medications Times are shown in LAST DIPPER. Scheduled Medication Order 05/05/2014 05/06/2014 05/07/2014 albuterol-ipratropium (conc: 3-0.5mg/3mL ) (DUO-NEB) nebulizer solution 3 mL (COMPLETED) 173 (Given - Provid er: Alyssa Jiménez, RT) 1 Ampule = 3 mL, Inhalation, ONE TIME DOSE, 1 dose, 05/07/14 at 1715 oseltamivir (TAMIFLU) capsule 75 mg (COMPLETED) 191 (Given - Provider: Fartun Lombardo RN) 75 mg, Oral, ONE TIME DOSE, 1 dose, 05/07/14 at 1900 predniSONE (DELTASONE) tablet 60 mg (COMPLETED) 1745 (Given - Provider: Fartun Lombardo RN) 60 mg, Oral, ONE TIME DOSE, 1 dose, 05/07/14 at 1715 documented in this encounter Care Teams Lie Detector Operator Relationship Specialty Start Date End Date Doctor, No PCP - General Radiology 05/07/14 12/25/15 No ad Clinic, No Primary PCP - Primary Care Clinic 05/07/14 02/22/16 Francesco Bonner MD 08/11/13 documented as of this encounter
--- OUTSIDE RECORDS SUMMARY | 2022-02-13 11:41 | XMS_ITS | Encounter Summary ---
:1940 Author Organization [facility] Address [address] [place] [id number] Care Team Providers Name Role Phone Francesco Bonner MD Unavailable Unavailable Francesco Bonner MD Primary Care Provider [facility] Unavailable [phone] Reason for Referral (Routine) - Closed Specialty Diagnoses / Procedures Referred By Contact Refer red To Contact Diagnoses Low blood pressure reading Mouna Carlson MD Procedures UE ARTERIAL ULTRASOUND BILAT Referral ID Status Reason Start Date Expiration Date Visits Requ ested Visits Authorized [id number] Closed 09/13/2013 03/09/2014 1 1 (Routine) - Closed Specialty Diagnoses / Procedures Referred By Contact Refer red To Contact Procedures Mouna Carlson MD Discharge Instructions Referral ID Status Reason Start Date Expiration Date Visits Requ ested Visits Authorized [id number] Closed 09/10/2013 03/09/2014 1 1 (Routine) - Closed Specialty Diagnoses / Procedures Referred By Contact Refer red To Contact Procedures Mouna Carlson MD Diet: Regular Referral ID Status Reason Start Date Expiration Date Visits Requ ested Visits Authorized [id number] Closed 09/10/2013 03/09/2014 1 1 (Routine) - Closed Specialty Diagnoses / Procedures Referred By Contact Refer red To Contact Procedures Mouna Carlson MD Activity as tolerated Referral ID Status Reason Start Date Expiration Date Visits Requ ested Visits Authorized [id number] Closed 09/10/2013 03/09/2014 1 1 (Routine) - Closed Specialty Diagnoses / Procedures Referred By Contact Refer red To Contact Mouna Carlson MD Referral ID Status Reason Start Date Expiration Date Visits Requ ested Visits Authorized [id number] Closed 09/10/2013 03/09/2014 1 1 Scheduling Instructions If your follow up appointment is not alr bibiana scheduled, CALL today or tomorrow to schedule it. Question Answer Specify time frame for follow up? 1 Week Comments FU with PCP (Routine) - Closed Specialty Diagnoses / Procedures Referred By Contact Refer red To Contact Procedures Mouna Carlson MD Discharge Referral ID Status Reason Start Date Expiration Date Visits Requ ested Visits Authorized [id number] Closed 09/10/2013 03/09/2014 1 1 Reason for Visit Reason Comments Breathing Problem Post-surgical Inpatient Admission - Closed Specialty Diagnoses / Procedures Referred By Contact Refer red To Contact Diagnoses pneumonia hypot[place] [facility] [address] [place] [address] [place] [address] Phone: Fax: Referral ID Status Reason Start Date Expiration Date Visits Requ ested Visits Authorized [id number] Closed 1 Encounter Details Date Type Department Care Team Description 09/08/2013 - Hospital Encounter [facility] ICU Randy Garcia MD [address] [place] [address] 09/10/2013 [facility] [address] [place] [address] Social History Tobacco Use Types Packs/Day Years Used Date Smoking Tobacco: Every Day Cigarettes 1 Smokeless Tobacco: Never Alcohol Use Standard Drinks/Week Comments No 0 [...] Sign Reading Time Taken Comments Blood Pressure 132/72 09/10/2013 10:05 AM CDT Pulse 87 09/10/2013 10:05 AM CDT Temperature 36.8 ??C (98.3 ??F) 09/10/2013 10:05 AM CDT Respiratory Rate 16 09/10/2013 10:05 AM CDT Oxygen Saturation 95% 09/10/2013 10:05 AM CDT Inhaled Oxygen Concentration - - Weight 73.3 kg (161 lb 8 oz) 09/10/2013 12:28 AM CDT Height 157.5 cm (5' 2.01) 09/08/2013 2:21 PM CDT Body Mass Index 29.53 09/08/2013 2:21 PM CDT documented in this encounter Discharge Summaries Mouna Carlson - 09/10/2013 4:16 PM CDT DISCHARGE NOTE Patient Name: Alex Kirk Date of : 1940 Attending Provider: Mouna Carlson Admission Date: 09/08/2013 Discharge Date: 09/10/2013 She will be discharged on 09/10/2013 to home. PRINCIPAL DISCHARGE DIAGNOSIS 1. HCAP VS CAP 2. Question COPD with Mild Exacerbation 3. 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 5. Borderline Hypotension, Resolved with IVF did not require pressors. SECONDARY DIAGNOSIS She did have some non specific chest pain a couple years ago, with negative cardiac workup. 63 pack year smoker. PAST SURGICAL HISTORY: Past Surgical History Procedure Laterality Date ??? Hx cholecystectomy ??? Breast surgery procedure unli* cyst taken off Rt side ??? Hx back surgery DISCHARGE MEDICATIONS Current Discharge Medication List NEW MEDICATIONS Details acyclovir 5% (ZOVIRAX) 5 % Top Oint Apply 1 g to skin five times a day. levofloxacin (LEVAQUIN) 750 mg Oral Tab Take 1 Tab by mouth Once Daily. Qty: 7 Tab, Refills: 0 albuterol HFA 90mcg/puff (PROVENTIL;VENTOLIN HFA) 90 mcg/actuation Inhl 2 Puffs by Inhalation route every 4 (four) hours as needed for Shortness of breath. use a holding chamber/spacer Qty: 1 Inhaler, Refills: 1 MEDICATIONS CONTINUED UNCHANGED Details cyclobenzaprine (FLEXERIL) 10 mg Oral Tab Take 10 mg by mouth three times a day as needed. oxyCODONE-acetaminophen (PERCOCET) 5-325 mg Oral Tab Take 1-2 Tabs by mouth every four (4) to six (6) hours as needed for Pain. DISCONTINUED MEDICATIONS valACYclovir (VALTREX) 1 g Oral Tab Dextromethorphan Poly Complex (DELSYM) 30 mg/5 mL Oral Su12 acetaminophen (TYLENOL) 500 mg Oral Tab albuterol, conc: 2.5mg/3mL, (PROVENTIL, VENTOLIN) 2.5 mg /3 mL (0.083 %) Inhl Nebu clxzwvxeq-JD-VF-acetaminophen (JAYCEE-SELTZER PLUS FLU) 2-5-10-250 mg Oral TbEF 73 F admitted with Cougha and SOB, it started a day prior to the back surgery she had 6 days prior to admission. She received a CT in ER and was not found to have PE. CT showed Mild lingula and minimalleft upper lobe airspace disease. 1. HCAP VS CAP : Improving. Was given Vanc, Zosyn and Levaquin iv for three days. She got better. Unfortunately she could not give a good sputum sample. They did not process the sputum sample as it wasa poor quality. BC remained negative. She is getting better. I will stop vanc and zosyn. Continue levaquin for another 7 days to finish 10 day course of pneumonia. 2. COPD with Mild Exacerbation: Getting better with nebs. No steroids needed. Can use PRN albuterol at DC. 3. Recent Back Surgery for Disc Disease: pain control with tylenol and oxycodone. Plan as before this admission. 4. Herpes Labialis, Sp course of PO acyclovir. Using topical acyclovir for 5 days now. 5. Borderline Hypotension: Resolved with IVF. She did not require pressors. DISCHARGE PROCEDURES AND FOLLOW-UP Discharge Procedure Orders Activity as tolerated Discharge Instructions Drink plenty of fluids, FU with PCP next week. Eat yogurt twice a day, 2 hrs apart from the antibioitics. Discharge Disposition? Returning Home/Self Care Expected discharge date? 09/10/2013 UE ARTERIAL ULTRASOUND BILAT Standing Status: Future Standing Exp. Date: 09/10/14 Unequal Blood Pressures in the Arm with SBP difference more than 20 and Diastolic Difference more than 10 Diet: Regular Follow Up FU with PCP If your follow up appointment is not already scheduled, CALL today or tomorrow to schedule it. Specify time frame for follow up? 1 Week Less than 30 min spent in DC documented in this encounter Discharge Instructions Discharge InstructionsOlga Ulloa RN - 09/10/2013 10:12 AM CDT Activity Your provider has recommended that your activity be: Up as tolerated Get regular activity and try to walk for a total of 30 minutes per day. Start by walking for 5 to 10 minutes at one time and slowly build to walking for 30 minutes at one time. Rest is also an important part of healing. Slowly return to your regular level of activity. Save your energy by spreading out activities that make you tired. Rest as needed. Dietary Recommendations The diet that has been suggested for you is: General, Healthy Diet: A healthy diet can reduce the risk of developing a long-term diet related illness. Eat a variety of foods from each of the basic food groups Monitor and manage your calorie intake to support your desired body weight. Choose fats wisely. The best sources of fat come from fish, nuts, and vegetable oils. Limit the amount of solid fats such as butter, margarine, and shortening. Read food labels to identify foods that contain trans-fats and then avoid these foods whenever possible. If you drink alcohol, do so in moderation. Medications If your provider has ordered medications for you, make sure to take your medications as prescribed. For emergency, call 911 Notify provider for the following problems/concerns: ?? Notify your primary care doctor and identify yourself as a heart failure patient having the following symptom or symptoms: ?? New or worsening shortness of breath or trouble breathing when lying flat; ?? Chest discomfort (not relieved by nitro); ?? Swollen feet, ankles and legs more than usual; ?? Fatigue, weakness, loss of energy; ?? Coughing at night or chronic cough; ?? Nausea with abdominal swelling, pain and tenderness; or ?? Persistent nausea with vomiting or diarrhea. Monitor Your Weight Weigh yourself everyday in the morning and keep a record. If your weight has increased 2 pounds overnight or 4 pounds in one week, contact you primary care provider/MD. Discharge Weight Weight: 73.256 kg (161 lb 8 oz) Please keep any follow-up appointments that have been made for you. Smoking and second-hand smoke exposure: If you or anyone in your home smokes, we strongly recommend that you stop for your health and that of your family. Please talk with your health care provider about your best treatment options. No matter what your age or how long you've smoked, quitting will help you live longer. For further assistanceplease call the [employer] Helpline at 7-(217)-922-SROV or go to their website www.[employer]. Patient InstructionsOlga Ulloa RN - 09/10/2013 10:12 AM CDT Images from the original note were not included. Community-acquired Pneumonia WHAT YOU SHOULD KNOW: Community-acquired pneumonia (CAP) is a lung infection that you get from being around other people in the community. When you have CAP, your lungs become inflamed and cannot work well. CAP is caused bydifferent germs, including bacteria, viruses, and fungi (yeasts). The germs are easily spread from an infected person to others by coughing, sneezing, or close contact. AFTER YOU LEAVE: Medicines: ?? Antibiotics: This medicine is given to fight or prevent an infection caused by bacteria. Always take your antibiotics exactly as ordered by your primary healthcare provider. Do not stop taking your medicine unless directed by your primary healthcare provider. Never save antibiotics or take leftoverantibiotics that were given to you for another illness. ?? Expectorants: Expectorant medicine helps thin your sputum (mucus from the lungs). When sputum is thin, it may be easier for you to cough it up and spit it out. This may make your breathing easier, and may help you get better faster. ?? Bronchodilators: You may need bronchodilators to help open the air passages in your lungs, and help you breathe more easily. ?? Antipyretics: This medicine is given to decrease a fever. ?? Steroids: Steroid medicine may help open your air passages so you can breathe easier. Do not stoptaking this medicine without your primary healthcare provider's okay. Stopping on your own can causeproblems. ?? Inhalers and nebulizers: Your caregiver may give you one or more inhalers to help you breathe easier and cough up mucus. An inhaler gives your medicine in a mist form so that you can breathe it intoyour lungs. This type of medicine may also be given using a nebulizer, or breathing treatment machine. Using inhalers and nebulizers the right way takes practice. Ask your caregiver for more information about using inhalers and nebulizers correctly. ?? Antifungal medicine: This medicine helps kill fungus that may be causing your pneumonia. ?? Antiviral medicine: This is given to treat pneumonia if it is caused by a virus. ?? Take your medicine as directed. Call your primary healthcare provider if you think your medicine is not helping or if you have side effects. Tell him if you are allergic to any medicine. Keep a listof the medicines, vitamins, and herbs you take. Include the amounts, and when and why you take them.Bring the list or the pill bottles to follow-up visits. Carry your medicine list with you in case ofan emergency. Follow up with your primary healthcare provider as directed: Write down your questions so you remember to ask them during your visits. Breathing treatments and support: ?? Deep breathing and coughing: Your primary healthcare provider may want you to do deep breathing and coughing. Deep breathing helps to open the air passages in your lungs. Coughing helps to bring up mucus from your lungs. Sit up regularly or get out of bed to help you breathe easier and get better faster. ?? Oxygen: You may need extra oxygen to help you breathe easier. It may be given through a plastic mask over your mouth and nose. It may be given through a nasal cannula, or prongs, instead of a mask. A nasal cannula is a pair of short, thin tubes that rest just inside your nose. Tell your caregiver if your nose gets dry or if you get redness or sores on your skin. Never smoke or let anyone else smoke in the same room while your oxygen is on. Doing so may cause a fire. Self-care: ?? Avoid the spread of germs: Wash your hands often with soap and water. Use gel hand cleanser when there is no soap and water available. Do not touch your eyes, nose, or mouth unless you have washed your hands first. Cover your mouth when you cough. Cough into a tissue or your shirtsleeve so you do not spread germs from your hands. If you are sick, stay away from others as much as possible. ?? Drink enough liquids: Men 19 years old or older should drink about 3 liters of liquid each day (close to thirteen 8 ounce cups). Women 19 years old or older should drink about 2.2 liters of liquid each day (close to nine 8 ounce cups). Liquids help thin your mucus, which may make it easier for you to cough it up. While you are sick, do not drink alcohol. ?? Get vaccinated: The pneumococcal vaccine is given to adults aged 65 years or older to prevent pneumococcal disease, such as pneumonia. People aged 19 to 64 years at high risk for pneumococcal disease also should get the pneumococcal vaccine. It may need to be repeated 5 years later. Get an influenza (flu) vaccine every year as soon as it becomes available. ?? Quit smoking: Do not smoke, and do not allow others to smoke around you. Smoking increases your risk of lung infections and CAP. Smoking also makes it harder for you to get better after a lung infection. Talk to your primary healthcare provider if you need help to quit smoking. ?? Rest: Rest when you feel it is needed. Slowly start to do more each day. Return to your daily activities as directed. Contact your primary healthcare provider if: ?? You have fever and chills. ?? Your cough comes back, does not go away, or you begin to cough up blood. ?? You feel very tired or weak, or are sleeping more than usual. ?? You cannot eat or have loss of appetite, nausea, or vomiting. ?? You are urinating less, or not at all. ?? Your heart or pulse beats more than 100 times in 1 minute. ?? You have questions or concerns about your condition or care. Seek care immediately or call 911 if: ?? Your symptoms do not get better, or get worse. ?? You are confused and cannot think clearly. ?? You have more trouble breathing, or your breathing seems faster than normal. ?? Your lips or fingernails turn medellin or blue. ?? 2012 [employer]. Information is for End User's use only and may not be sold, redistributed or otherwise used for commercial purposes. All illustrations and images included in CareNotes?? are the copyrighted property of [employer]. or [employer]. The above information is an technical aid only. It is not intended as medical advice for individual conditions or treatments. Talk to your doctor, nurse or pharmacist before following any medical regimen to see if it is safe and effective for you. Chronic Obstructive Pulmonary Disease WHAT YOU SHOULD KNOW: Chronic obstructive pulmonary disease (COPD) is a lung disease that makes it hard for you to breathe. It is usually a result of lung damage caused by years of irritation and inflammation in your lungs.COPD is a serious condition that gets worse over time. There is no cure, but there are things you can do to feel better and prevent exacerbations. A COPD exacerbation is when your symptoms suddenly getworse. It is important to prevent exacerbations because they cause more lung damage. AFTER YOU LEAVE: Manage COPD and help prevent exacerbations: ?? Do not smoke and avoid others who smoke. If you smoke, it is never too late to quit. You are likely to live longer and breathe easier if you quit smoking. You may also have fewer COPD exacerbations.Ask for information about medicines and support programs that can help you quit. ?? Be aware of and avoid things that make your symptoms worse. Cold weather and sudden temperature changes can trigger an exacerbation. Fumes from cars and chemicals, air pollution, and perfume can also increase your symptoms. ?? Exercise daily. Exercising for at least 20 minutes per day can help increase your energy and decrease shortness of breath. Walking or riding a bike are good ways to exercise. Ask about the best exercise plan for you. ?? Prevent infections that can be dangerous when you have COPD. Get a flu vaccine every year as soonas it becomes available. Ask if you should also get vaccines to prevent pneumonia, whooping cough, tetanus, and diphtheria. Avoid people who are sick, and wash your hands often. Use pursed-lip breathing any time you feel short of breath: Take a deep breath in through your nose.Slowly breathe out through your mouth with your lips pursed for twice as long as you inhaled. You can also practice this breathing pattern while you bend, lift, climb stairs, or exercise. It slows downyour breathing and helps move more air in and out of your lungs. Medicines: ?? Medicines to open your airways, decrease swelling and inflammation in your lungs, or treat an infection may be given. You may need 2 or more medicines. A short-acting medicine relieves symptoms quickly. Long-acting medicines will control or prevent symptoms. Ask for more information about the medicines you are given and how to use them safely. ?? Take your medicine as directed. Contact your primary healthcare provider (PHP) if you think your medicine is not helping or if you have side effects. Tell him if you are allergic to any medicine. Keep a list of the medicines, vitamins, and herbs you take. Include the amounts, and when and why you take them. Bring the list or the pill bottles to follow-up visits. Carry your medicine list with you in case of an emergency. Follow up with your PHP as directed: You may need more tests. Your PHP may refer you to a pulmonary (lung) specialist. Write down your questions so you remember to ask them during your visits. Pulmonary rehabilitation: Your PHP may recommend a program to help you manage your symptoms and improve your quality of life. It may include nutritional counseling and exercise, such as walking, to strengthen your lungs. Make decisions about your choices for future treatment: Ask for information about advanced medical directives and living segal. These documents help you decide and write down your choices for treatmentand end-of-life care. It is best to complete them when you feel well and can think clearly about your wishes. The information can then be kept for future use if you are in the hospital or become very ill. Contact your PHP if: ?? You have more shortness of breath than usual. ?? You need more medicine than usual to control your symptoms. ?? You are coughing or wheezing more than usual. ?? You are coughing up more mucus, or it is a different color or has a different odor. ?? You gain more than 3 pounds in a week. ?? You have a fever, a runny or stuffy nose, and a sore throat, or other cold or flu symptoms. ?? Your skin, lips, or nails start to turn blue. ?? You have swelling in your legs or ankles. ?? You are very tired or weak for more than a day. ?? You notice changes in your mood, or changes in your ability to think or concentrate. ?? You have questions or concerns about your condition or care. Seek care immediately or call 911 if: ?? You are confused, dizzy, or feel faint. ?? Your arm or leg feels warm, tender, and painful. It may look swollen and red. ?? You feel lightheaded, short of breath, and have chest pain. ?? You cough up blood. ?? 2013 [employer]. Information is for End User's use only and may not be sold, redistributed or otherwise used for commercial purposes. All illustrations and images included in CareNotes?? are the copyrighted property of [employer]. or [employer]. The above information is an technical aid only. It is not intended as medical advice for individual conditions or treatments. Talk to your doctor, nurse or pharmacist before following any medical regimen to see if it is safe and effective for you. D/C Instructions ScanScanned Doc - 09/13/2013 3:01 PM CDT Scanned Doc - 09/09/2013 11:47 AM CDT documented in this encounter Medications at Time [...] 04/201404/16/2016 750 mg Oral Tab Once Daily. oxyCODONE-acetaminophen Take 1-2 Tabs by 0 04/16/2016 (PERCOCET) 5-325 mg Oral mouth every four (4) Tab to six (6) hours as needed for Pain. documented as of this encounter Progress Notes Olga Ulloa RN - 09/10/2013 10:53 AM CDT Alex Gonzalez Kelsey 1940 [id number] Situation/Background: Discharge Assessment:Discharged via wheelchair to home at 1050 escorted by nurse and daughter. Recommendation: Discharge information and arrangements included: review of written discharge instructions, prescriptions faxed and paper copy sent with pt, belongings list completed, and educational materials given re: new prescriptions, PNA, COPD, when to f/u with PCP, and when to report concerning s/ s. Patient, daughter expressed understanding of information. Yasemin Leonardo RN - 09/10/2013 6:08 AM CDT ICC/MS END OF SHIFT SBAR S: Situation Focus of Care:Breathing Shift Events: IV Abx, resp tx per RT B: Background: 73yo smoker admitted with c/o cough x1 week and sob for few days. Pt had recent back surgery at [facility] for disc issue. Pt admitted with pneumonia. A: Assessment Shift Assessment: Pt A/O, up independ in room. LS dim, wheezes at times, on RA. Non-prod cough. Denies pain. Voiding adequate amounts. Rested well between cares. Pt has herpes sores on lips, using acyclovir cream. R: Recommendations Plan: Likely discharge home today CORE measures progress: Pna Suha Guan RN - 09/09/2013 5:11 PM CDT SITUATION : Focus of Care: Breathing Shift Events: antibiotics for pneumonia BACKGROUND : Admitted for pneumonia on 09/08, getting vancomycin and zosyn IV. see H&P, recent back surgery ASSESSMENT : Oriented, Cooperative with care. Up independently in room. Vss BP 152/68 Pulse 99 Temp(Src) 98.3 ??F (36.8 ??C) Resp 18 Ht 1.575 m (5' 2.01) Wt 73.074 kg (161 lb 1.6 oz) BMI 29.46 kg/m2 SpO2 90% Lungs dim, patient on room air. Denied pain today, slept a few hours this afternoon. Family at bedside most of the day. RECOMMENDATIONS : Follow existing care plan, needs sputum sample - has sterile cup at bedside. Pneumonia core measure Mouna Carlson - 09/09/2013 3:07 PM CDT Hospitalist Progress note Subjective: Cough and sob better. No fever. No Nause, No Vomiting, No Belly Pain Exam: BP 129/68 Pulse 93 Temp(Src) 97.8 ??F (36.6 ??C) Resp 18 Ht 5' 2.01 (1.575 m) Wt 73.074 kg (161 lb 1.6 oz) BMI 29.46 kg/m2 SpO2 99% Weight change: Intake/Output Summary (Last 24 hours) at 09/09/13 1507 Last data filed at 09/09/13 0200 Gross per 24 hour Intake 420 ml Output 1850 ml Net -1430 ml HEENT: Head Normocephalic, PAYAL, Oropharyngs Moist CVS: S1S2 Normal, No New Murmur Lungs: Clear, Wheezing better. Abdomen: BS present, Soft Nontender Legs: No edema or Calf tenderness Neurology: Alert, No new focal Defecits Labs: Recent Labs 09/08/13 0953 WBC 8.2 RBC 4.40 HEMOGLOBIN 14.1 HEMATOCRIT 39.9 MCV 91 MCH 32 RDW 12.3 PLATELETCT 307 Recent Labs 09/08/13 0953 SODIUM 137 POTASSIUM 3.6 CHLORIDE 101 CARBONDIOXI 25 ANIONGAP 11.0 GLUCOSE 111* BUNUREANRO 9 CREATININE 0.90 CALCIUMSERUM 9.6 ESTGFRMDRD >60 ESTGFRIFBLCK >60 Assessment and Plan: 1. HCAP VS CAP : Improving. Keep the Vanc, Zosyn and Levaquin. FU sputum and BC. DC tomorrow. 2. COPD with Mild Exacerbation: Getting better with nebs. No steroids needed. Can use PRN albuterol at DC. RT to teach it. 3. Recent Back Surgery for Disc Disease: pain control with tylenol and oxycodone. PT while here. 4. Herpes Labialis, Sp course of acyclovir. Can use topical acyclovir to now. 5. Borderline Hypotension: Resolved with IVF. Stop IVF. DVT Prophylaxis: SCDs Disposition: DC home likely tomorrow. Anita Schilling, Pharm D - 09/09/2013 2:52 PM CDT Pharmacy Vancomycin Consult Situation: Alex Kirk is a 73 y/o female who was admitted on 09/08/2013 with CAP vs HCAP (patient recentlyhospitalized for back surgery) and hypotension. Pharmacy was consulted to dose and monitor empiric vancomycin. Background: Patient is currently receiving the following antibiotics: 09/08-present: Levofloxacin 750 mg IV q48h 09/08-present: Piperacillin/tazobactam 4.5 g IV q6h 09/08-present: Vancomycin 1500 mg IV x 1, then 1250 mg IV q24h 09/08: Cefepime 2 g IV x 1 09/08: Cipro 200 mg IV x 1 Height: 157.5 cm (5' 2.01) Weight: 73.074 kg (161 lb 1.6 oz) Admit/Drug Calculation Weight: 72.53 kg (159 lb 14.4 oz) IBW: 50.1 kg Adjusted (Dosing) Weight: 59.3 kg Vitals: Temp (24hrs), Av ??F, Min:97.8 ??F, Max:98.1 ??F Intake/Output Summary (Last 24 hours) at 09/09/13 1452 Last data filed at 09/09/13 0200 Gross per 24 hour Intake 420 ml Output 1850 ml Net -1430 ml Assessment: Date WBC SCr CrCl Notes/Levels 09/08/13 8.2 0.9 ~39.6 Vancomycin initiated 09/09/13 --- --- --- --- 09/08/13: BCx x 2: NG x 18 hours 09/08/13: UA: bacteria present 09/08/13: Sputum Cx: unsatisfactory for Cx Plan: 1) Continue vancomycin at 1250 mg (~17 mg/kg, ABW) IV q24h. The patient has received two doses at this point (1500 mg x 1, 1250 mg x 1). 2) Goal trough 15-20 mcg/mL (empiric therapy). 3) Pharmacist will monitor Cx results, additional pertinent labs if ordered, temperature, renal function, and for clinical response. 4) Would recommend checking a trough prior to fifth dose if vancomycin therapy is still warranted. Thank you for the consult[place] [phone]. Pharmacist will continue to follow. Thank you, Anita Schilling, Pharm D, BCPS............. 09/09/2013 2:59 PM Jefferson Garner RN - 09/09/2013 5:43 AM CDT Pts VSS, call light within reach, able to make needs known. Safety maintained. Will cont to monitor. Ritchie Rhodes RN - 09/08/2013 8:19 PM CDT ICC/MS END OF SHIFT SBAR S: Situation Focus of Care antibiotics,hydration: Shift Events: up tp bathroom to void, tylenol for headache B: Background Arrived to ecc co of Sob and increasing cough sec to post operative jose j pnm.px hx included lubar diskectomy 09/02/13 A: Assessment Shift Assessment:pt o x 3 vs stable given tylenol x 1 for headache.pt on r/a no resp distress, Pain: Patient pain level 0. Comfort goal 1. Next pain medication due at anytime R: Recommendations Plan: antibiotics, activity Barriers that impede progress to discharge: infection Jacqueline Burrows, RT - 09/08/2013 5:31 PM CDT RT Consult for pneumonia Situation: Request for RT Consult for Alex Kirk. Admitted on 09/08/2013 for dx:pneumonia hypotension Background: Patient has a history of smoking, post back surgery. Active Problems: Pneumonia Current home medications include Prior to Admission Medications Outpatient Medications Last Dose Informant Patient Reported? Taking? Dextromethorphan Poly Complex (DELSYM) 30 mg/5 mL Oral Su12 Past Week Patient Yes Yes Sig: Take 10 mL by mouth every 12 (twelve) hours as needed. acetaminophen (TYLENOL) 500 mg Oral Tab 09/08/2013 Patient Yes Yes Sig: Take 1,000 mg by mouth every 6 (six) hours as needed. albuterol, conc: 2.5mg/3mL, (PROVENTIL, VENTOLIN) 2.5 mg /3 mL (0.083 %) Inhl Nebu 09/08/2013 Patient Yes Yes Si mL by Inhalation route every 6 (six) hours as needed. prwwxuuvl-LK-CF-acetaminophen (JAYCEE-SELTZER PLUS FLU) 2-5-10-250 mg Oral TbEF 09/08/2013 Patient Yes Yes Sig: Take 2 Tabs by mouth every 4 (four) hours as needed. cyclobenzaprine (FLEXERIL) 10 mg Oral Tab No No Sig: Take 1 Tab by mouth three times a day. cyclobenzaprine (FLEXERIL) 10 mg Oral Tab 09/08/2013 Patient Yes Yes Sig: Take 10 mg by mouth three times a day as needed. oxyCODONE-acetaminophen (PERCOCET) 5-325 mg Oral Tab Past Week Patient Yes Yes Sig: Take 1-2 Tabs by mouth every four (4) to six (6) hours as needed for Pain. valACYclovir (VALTREX) 1 g Oral Tab 09/08/2013 Patient No Yes Sig: Take by mouth as directed. Take 1 tab immediately then take 2 tabs 12 hours later Facility-Administered Medications: None . Home oxygen therapy N/A. Patient does not use home sleep therapy . Smoking History: History Substance Use Topics ??? Smoking status: Current Every Day Smoker -- 1.00 packs/day Types: Cigarettes ??? Smokeless tobacco: Never Used ??? Alcohol Use: No Comment: occasional Assessment: BP 144/64 Pulse 87 Temp(Src) 97.9 ??F (36.6 ??C) Resp 18 Ht 1.575 m (5' 2.01) Wt 72.53 kg(159 lb 14.4 oz) BMI 29.24 kg/m2 SpO2 99% O2 LPM: (not recorded) No Lab Results Found (last 72 hours) CXR:Left Lung infiltrates Assessment: Breath sounds dimished throughout L>R. SpO2 99% on room air. Action Taken: duo neb given. Instucted on acapella and cough technique. Recommendations: O2: Room air, no supplemental oxygen required, patient is able to maintain SpO2 > 90%. Nebulizer: Duoneb QID Albuterol Neb Q4 PRN Hyperinflation/Airway Clearance: Acapella device, education complete. Patient instructed to self administer 10-20 breaths every hour while awake and as needed. Swallow Evaluation: Not recommended, patient does not meet criteria. Smoking Cessation: Smoking cessation was declined by patient. Educational material was left at bedside. Patient does not want smoking or need for cessation discussed. JAQUELINE Screening: Patient does not meet criteria for JAQUELINE Screening. RT to follow as indicated. RT Jordi Carson Hopkins, Pharm D - 09/08/2013 5:00 PM CDT Pharmacy Vancomycin Initial Consult Situation: Alex Kirk is a 73 y.o. female who was admitted on 09/08/2013 [id number] with pneumonia hypotension. Pharmacy was consulted to dose and monitor Vancomycin for treatment of pneumonia. Background: Patient is currently receiving the following antibiotics: -Levofloxacin IV Q48H -Piperacillin/tazobactam 4.5 gm IV Q6H Height: 157.5 cm (5' 2.01) Weight: 72.53 kg (159 lb 14.4 oz) Admit/Drug Calculation Weight: 72.53 kg (159 lb 14.4 oz) IBW: 50.1 kg Adjusted (Dosing) Weight: 59 kg Vitals: Temp (24hrs), Av.1 ??F, Min:97.9 ??F, Max:98.3 ??F Intake/Output Summary (Last 24 hours) at 09/08/13 1700 Last data filed at 09/08/13 1630 Gross per 24 hour Intake 2200 ml Output 950 ml Net 1250 ml Assessment: WBC Date/Time Value Range Status 09/08/2013 9:53 AM 8.2 4.3-10.8 K/uL Final WHITE BLOOD CT Date/Time Value Range Status 05/31/2009 4:40 PM 9.5 4.3 - 10.8 K/uL Final BUN (UREA NITRO) Date/Time Value Range Status 09/08/2013 9:53 AM 9 7-18 mg/dL Final CREATININE Date/Time Value Range Status 09/08/2013 9:53 AM 0.90 0.60-1.30 mg/dL Final 08/11/2013 3:54 PM 0.8 0.6 - 1.3 mg/dL Final ed CrCl ~ 39.6 mL/minute Plan: Initiate Vancomycin at 1500mg [~25.4 mg/kg Dosing weight] IV x1, then 1250mg [~21.2 mg/kg] IV q24h. This regimen expected to yield a trough around 15 mcg/mL. Monitor SCr, Cultures, WBC, tmax. Pharmacy will order labs as appropriate Thank you for the consult. [place] [phone]. Pharmacy will continue tofollow. Carson Hopkins, Pharm D on September 08, 2013 at 5:00 PM Sandra Godinez - 09/08/2013 2:36 PM CDT Alex Kirk [phone] Situation: Admission to [facility]/ at from :[facility]. Background: Diagnosis: Pneumonia. . Assessment: Condition on Admit: alert, vital signs: Blood pressure 127/68, pulse 86, temperature 98.1 ??F (36.7 ??C), resp. rate 18, height 1.575 m (5' 2.01), weight 72.53 kg (159 lb 14.4 oz), SpO2 97.00%. Patient/Family Concerns: Patient expressed concern about being cold. Recommendation: Initial Interventions included: notified MD of patient arrival, admission routines. 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 Patient expressed understanding of information. Sandra Freire RN Daina Mishra, Pharm D - 09/08/2013 11:27 AM CDT Pharmacy Metformin Assessment Situation: Patient received iohexol 350mg/mL (Omnipaque) on 09/08/13 @ 1124 Background: The U.[place]. Food and Drug Administration and the [employer] recommend withholding metformin-containing medications for 48 hours following medical imaging exams involving IV contrast media and resuming metformin only if the creatinine has returned to normal. Assessment: Pharmacy has reviewed patient's hospital and home medications for metformin- containing medications. Patient currently is not taking metformin-containing medications. Recommendation: Patient is not taking Metformin, no further action required. Any metformin- containing medication should only be started after the 48 hours IF SCr is < 1.5 mg/dL (males) and < 1.4 mg/dL (females). Please consult pharmacy with any questions, [id number]. Pharmacy will continue to follow. Daina Mishra, Pharm D 09/08/2013 11:28 AM Sourav Enriquez, RT - 09/08/2013 10:24 AM CDT RT called for neb Pt here with c/o fever,cold, SOB BS clear diminished bilaterally with crackle at the base, RR, HR, and SPO2 WNL. Pt given duo neb x1. Pt states improvement post neb. Pt used neb at home per daughter. RT will cont to follow. documented in this encounter H&P Notes Mouna Carlson - 09/08/2013 3:00 PM CDT ADMISSION HISTORY AND PHYSICAL Patient Name: Alex Kirk [address]: [address] [place] [address] [place] [id number] Age: 73 y.o. Sex: female Admission Date/Time: 09/08/2013 9:38 AM Admitting Provider: Mouna Gallardo [facility] Attending Physician: Mouna Carlson Primary Care Provider: Francesco Bonner MD Informant: patient CHIEF COMPLAINT: Cough and sob HPI: 73 F who smokes one PPD admitted for Cough for last one week. She has been sob over last day ortwo as well. 6 days ago she had back surgery at [facility] for disc issue. She is doing ok with the back pain. She had a cough which started a day prior to the surgery but has persisted and gotten worse after surgery. Its mostly dry. Now she is more sob over last day or two. CO chills,sweats, feeling hot and cold. No URTI symptoms, no chest pain or wheezing. Denies Nausea or vomiting, denies bowel or bladder issues. PAST MEDICAL HISTORY: - She did have some non specific chest pain a couple years ago, with negative cardiac workup. - 63 pack year smoker. PAST SURGICAL HISTORY: Past Surgical History Procedure Laterality Date ??? Hx cholecystectomy ??? Breast surgery procedure unli* cyst taken off Rt side ??? Hx back surgery 09/02/2013 PRIOR TO ADMISSION MEDICATIONS: Prior to Admission Medications Outpatient Medications Last Dose Informant Patient Reported? Taking? Dextromethorphan Poly Complex (DELSYM) 30 mg/5 mL Oral Su12 Past Week Patient Yes Yes Sig: Take 10 mL by mouth every 12 (twelve) hours as needed. acetaminophen (TYLENOL) 500 mg Oral Tab 09/08/2013 Patient Yes Yes Sig: Take 1,000 mg by mouth every 6 (six) hours as needed. albuterol, conc: 2.5mg/3mL, (PROVENTIL, VENTOLIN) 2.5 mg /3 mL (0.083 %) Inhl Nebu 09/08/2013 Patient Yes Yes Si mL by Inhalation route every 6 (six) hours as needed. etyltszts-ZU-XJ-acetaminophen (JAYCEE-SELTZER PLUS FLU) 2-5-10-250 mg Oral TbEF 09/08/2013 Patient Yes Yes Sig: Take 2 Tabs by mouth every 4 (four) hours as needed. cyclobenzaprine (FLEXERIL) 10 mg Oral Tab No No Sig: Take 1 Tab by mouth three times a day. cyclobenzaprine (FLEXERIL) 10 mg Oral Tab 09/08/2013 Patient Yes Yes Sig: Take 10 mg by mouth three times a day as needed. oxyCODONE-acetaminophen (PERCOCET) 5-325 mg Oral Tab Past Week Patient Yes Yes Sig: Take 1-2 Tabs by mouth every four (4) to six (6) hours as needed for Pain. valACYclovir (VALTREX) 1 g Oral Tab 09/08/2013 Patient No Yes Sig: Take by mouth as directed. Take 1 tab immediately then take 2 tabs 12 hours later Facility-Administered Medications: None ALLERGIES: Review of patient's allergies indicates no known allergies. FAMILY HISTORY: 2 sons and a daughter with herniated L5/S1, 2/3 of whom have had surgery for this SOCIAL HISTORY: History Social History ??? Marital Status: Single Spouse Name: N/A Number of Children: N/A ??? Years of Education: N/A Occupational History ??? Not on file. Social History Main Topics ??? Smoking status: Current Every Day Smoker -- 1.00 packs/day Types: Cigarettes ??? Smokeless tobacco: Never Used ??? Alcohol Use: No Comment: occasional ??? Drug Use: No ??? Sexually Active: Not on file Other Topics Concern ??? Not on file Social History Narrative Merged History Encounter REVIEW OF SYSTEMS: A comprehensive review of systems was negative except for items noted in the HPI/Subjective. PHYSICAL EXAM: awake and alert BP 104/60 Pulse 77 Temp(Src) 98.1 ??F (36.7 ??C) Resp 18 Ht 5' 2.01 (1.575 m) Wt 72.53 kg(159 lb 14.4 oz) BMI 29.24 kg/m2 SpO2 99% HEENT: Head - normocephalic, atraumatic, ON the lips her cold sores are healing. Eyes - normal lids and conjunctivae, PERRLA, EOMs intact Oropharynx - Oral mucosa and pharynx normal, moist mucous membranes NECK: supple, tracheal midline, no tracheal deviation, no crepitus, no palpable lymphadenopathy, no masses, no thyromegaly, Carotids: no bruits RESPIRATORY: AE is ok on either side. She has expiratory wheezing. No inspiratory crackles which I could see. CARDIOVASCULAR: normal S1, normal S2, regular rhythm GASTROINTESTINAL: soft, non-tender, round, flat, no hepatosplenomegaly or palpable masses HEME/LYMPH/IMMUNOLOGIC: no palpable lymphadenopathy, no unusual bleeding or bruising MUSCULOSKELETAL: without deformity, normal range of motion SKIN: intact, warm, dry NEUROLOGIC: alert and oriented x 4, moves all extremities, cranial nerves 2-12 intact EXTREMITIES: no deformities or ulcerations PROCEDURES: CT chest IMPRESSION: 1. No CT evidence of pulmonary embolism. 2. Mild lingula and minimal left upper lobe airspace disease. This is most likely of infectious/inflammatory etiology in the acute setting. LABS: Results for orders placed during the hospital encounter of 09/08/13 (from the past 24 hour(s)) CBC/DIFF Result Value Range WBC 8.2 4.3-10.8 K/uL RBC 4.40 4.20-5.40 M/uL HEMOGLOBIN 14.1 12.0-16.0 gm/dL HEMATOCRIT 39.9 36.0-48.0 % MCV 91 80-100 fl MCH 32 27-33 pg MCHC 35 33-36 gm/dL RDW 12.3 11.5-14.5 % PLATELET COUNT 307 150-400 K/uL MPV 10.9 6.5-12.0 PMN % 59.3 IG% <=1.0 % LYMPH % 32.5 MONO % 6.1 EOS % 1.9 BASO % 0.2 PMN ABSOLUTE 4.88 1.80-7.80 K/uL IG ABSOLUTE LYMPH ABSOLUTE 2.68 1.00-4.00 K/uL MONO ABSOLUTE 0.50 0.00-1.00 K/uL EOS ABSOLUTE 0.16 0.00-0.45 K/uL BASO ABSOLUTE 0.02 0.00-0.20 K/ul BASIC METAB PROFILE Result Value Range SODIUM 137 136-145 mMol/L POTASSIUM 3.6 3.5-5.1 mMol/L CHLORIDE 101 98-107 mMol/L CARBON DIOXIDE 25 21-32 mMol/L BUN (UREA NITRO) 9 7-18 mg/dL CREATININE 0.90 0.60-1.30 mg/dL EST GFR (MDRD) >60 >60 mL/min EST GFR IF AM >60 >60 mL/min GLUCOSE 111 (*) 60-100 mg/dL CALCIUM, SERUM 9.6 8.5-10.1 mg/dL ANION GAP 11.0 0.0-15.0 mMol/L D DIMER QUANT Result Value Range D DIMER QUANT 404.0 (*) 0.0-230.0 ng/mL LACTIC ACID Result Value Range LACTIC ACID 2.2 (*) 0.4-2.0 mMol/L URINALYSIS W/ MICROSCOPY, IF INDICATED Result Value Range PH URINE 7.0 4.5-8.0 SP.GRAVITY, UA <=1.005 (*) 1.015-1.025 GLUCOSE, UA Negative Negative mg/dL KETONE, UA Negative Negative mg/dL BILIRUBIN, UA Negative Negative UROBILINOGEN, UA 0.2 0.2-1.0 EU/dL PROTEIN, UA Negative Negative mg/dL OCCULT BLOOD, UA Trace Negative, Trace, TRACE-LYSED, TRACE-INTACT WBC ESTERASE, UA Negative Negative, Trace NITRITE, UA Negative Negative URINALYSIS MICROSCOPY (LAB USE ONLY) Result Value Range WBC-UA MICRO 1-4 None Seen, Occasional, Few, 1-4 /hpf BACTERIA Present (*) Absent, None Seen SQUAM EPITHELIAL Many (*) None Seen /lpf RBC-UA 1-4 (*) None Seen, Occasional /hpf EKG: Sinus mechanism, no Acute STT changes noted. ASSESSMENT: 1. Cumminity acquired Vs Health Care Associated Pneumonia: She could have nosocomial infection as she was recently hospitalized. Choose Vanc, Zosyn and Levaquin for AB. Get sputum studies, BC, urine legionella and urine strep antigen. Airway clearance with robitussing DM, acapella. 2. Question COPD and Exacerbation: I would avoid using steroids as she just had surgery and those will impair healing. Treat for infection. Schedule Duonebs QID. 3. Mild Elevated Lactic Acid Level, likely from Above, likely due to pneumonia. She does not really meet the criteria for sepsis. We will hydrate her. Monitor UO and BP. 4. Borderline Hypotension, Improved with 2 L IVF in ER, Monitor clinically. Monitor UO. Gentle hydration. If BP drops, give additional fluid bolus for 500 ml 5. Recent Back Surgery for Disc Disease: pain control with tylenol and oxycodone. PT while here. Wound care. 6. Herpes Labialis, Sp course of acyclovir. Can use topical acyclovir to now. 7. DVT: SCDs given recent surgery 8. Admission Status: I expect the patient to be here for atleast two midnights, expected length of stay 3 days, for the reasons Mentioned above. Based on my judgement, the patient meets inpatient criteria. 9. Tobacco cessation recommended. 10. Mouna Carlson documented in this encounter Nursing Notes Aminata Aly, RT - 09/10/2013 2:07 PM CDT Problem: Impaired Respiratory Status Goal: Bronchodilation Outcome: Completed Date Met: 09/10/13 No nebs provided today, patient refused. Patient discharged. Olga Ulloa RN - 09/10/2013 10:08 AM CDT Problem: SAFETY Goal: *Communicates safety needs Outcome: Met this shift Pt uses call light appropriately to make needs known. Verbalizes understanding of safety measures implemented when explained. Gets up independently in room. Steady on feet. Denies lightheadedness or dizziness. Has remained safe throughout this shift. Will continue to monitor. Problem: Pain Goal: Exhibits reduction in pain to a level of acceptable comfort Outcome: Met this shift Pt has c/o mild back pain throughout shift. Declined pain medications at this time. Reports being able rest comfortably between cares. Will continue to reassess q2hrs to ensure optimal pain control. Yasemin Leonarod RN - 09/10/2013 1:36 AM CDT Problem: SAFETY Goal: *Communicates safety needs Outcome: Met this shift Pt remained safe over shift. Safe environment maintained with bed kept in lowest position and locked, call light within reach, environment free of clutter, and hourly staff rounding. Pt uses call lightappropriately. Problem: Pain Goal: Exhibits reduction in pain to a level of acceptable comfort Outcome: Met this shift Pt denies pain. Asher Patino, RT - 09/09/2013 9:09 PM CDT Problem: Impaired Respiratory Status Goal: Bronchodilation Outcome: Met this shift Pt given QID DuoNeb x2 during shift with improvement in aeration. RT will continue to follow as needed. Bethany Nuno, - 09/09/2013 2:06 PM CDT Problem: Impaired Respiratory Status Goal: Bronchodilation Outcome: Met this shift Patient received duoneb tx's per JUL this shift. BS sl coarse but decreased. Patient has a strong effective, loose cough post bronchodilator therapy. RT will continue to follow. ETT Jefferson Garner RN - 09/09/2013 5:43 AM CDT Problem: Pain Goal: Exhibits reduction in pain to a level of acceptable comfort Outcome: Met this shift Pt has had no c/o pain this shift. Will cont to monitor. Tami Gustafson, - 09/09/2013 4:49 AM CDT Problem: Impaired Respiratory Status Goal: Bronchodilation Outcome: Met this shift Pt requesting prn albuterol neb. Pt has coarse breath sounds with upper airway wheezing. Increased aeration post tx. RT will continue to follow. Ritchie Rhodes RN - 09/08/2013 8:13 PM CDT Problem: SAFETY Goal: *Communicates safety needs Outcome: Met this shift Pt able to comm safety needs Problem: Pain Goal: Exhibits reduction in pain to a level of acceptable comfort Outcome: Met this shift Pt has had a reduction in pain Problem: Discharge Planning Goal: *Patient and/or family participates in care planning Outcome: Met this shift Pt and family invoved in dc planning Tami Gustafson, RT - 09/08/2013 7:53 PM CDT Problem: Impaired Respiratory Status Goal: Bronchodilation Outcome: Met this shift Pt received duoneb per MAR, breath unchanged post tx. Pt states no benefit post tx. RT will continueto follow. Jacqueline Burrows, - 09/08/2013 5:30 PM CDT Problem: Impaired Respiratory Status Goal: Bronchodilation Outcome: Met this shift Patient given duoneb as ordered. Breath sounds diminished and coarse L>R. Increased aeration withneb. SpO2 98% on room air.RT will continue to follow. Goal: Mucociliary Clearance/Alternate Airway Outcome: Completed Date Met: 09/08/13 Patient instructed on use of acapella. Loose cough with swallowed production. Cup at bedside for specimen. Encouraged to use Q1 hour. RT will continue to follow. Goal: Disease Management Outcome: Completed Date Met: 09/08/13 Patient was presented with informational material and opportunity for smoking cessation conseling. Patient has declined information at this time. Patient does not want to be asked about smoking or cessation. documented in this encounter ED Notes Yancy Faulkner RN - 09/08/2013 2:20 PM CDT Patient stable at time of transport to [facility] via [facility]. Randy Garcia MD - 09/08/2013 1:16 PM CDT CC: Francesco Bonner MD Primary Care Physician: Francesco Bonner MD, [facility] CHIEF COMPLAINT: Shortness of breath, cough. HISTORY OF PRESENT ILLNESS: The patient is a 73-year-old female. The patient recently had a lumbar diskectomy on September 02, 2013. The patient states that she was recovering well until she began to develop increasing gradual onset of shortness of breath and productive cough. She reports that she has had chills at home but no fever. No pleuritic pain, no swelling in the lower extremities. No history of blood clots. She reports that she has been feeling generally weak and has been somewhat nauseated but not vomiting. PAST MEDICAL HISTORY: Chronic back pain with diskectomy. MEDICATIONS AND ALLERGIES: Reviewed in Epic and updated. FAMILY HISTORY: Noncontributory. SOCIAL HISTORY: The patient is a smoker. REVIEW OF SYSTEMS: A ten-point review of systems was performed with the patient and was negative other than what was stated in HPI. PHYSICAL EXAMINATION: VITAL SIGNS: Temperature 98.7, pulse 99, respiratory rate is 32, blood pressure is 112/78, saturating 96% on room air. GENERAL: The patient is awake, alert, sitting up. She does appear to be in some mild acute respiratory distress. HEENT: Atraumatic, normocephalic. Mucous membranes dry. CARDIOVASCULAR: Mild tachycardia without murmur. PULMONARY: The patient does have wheezes bilaterally with tachypnea. ABDOMEN: Soft, nontender, nondistended. No organomegaly or masses. EXTREMITIES: Atraumatic. Full range of motion, no peripheral edema. SKIN: No rashes or lesions. NEUROLOGIC: Alert and oriented x3. EMERGENCY DEPARTMENT COURSE: The patient is a 73-year-old female presenting today with gradually increasing shortness of breath and cough with chills at home, concerning for a postoperative pneumonia. I did obtain a laboratory workup including blood cultures and a chest x-ray. The patient's initial blood pressure was okay at 112/78 but it began to dip a bit down into the 80s. She was given some IV fluids and this has come back up to 130s systolic. Her laboratory evaluation shows a CBC without significant white count, normal hemoglobin. Basic metabolic panel is within normal limits. Her lactic acid is very slightly elevated at 2.2. I think this is likely due to some mild dehydration. Her chest x-ray is clear other than some mild vascular congestion which is somewhat surprising. She had improved with a DuoNeb as well as some prednisone, so I think that this did help with the reactive airway component of her presentation. She does not have a history of COPD, so I do not think I can chalk up her ini tial presentation solely to COPD exacerbation. With the elevated D-dimer, I did evaluate further with a CT scan of the chest which does not show blood clot, but does show a small lingular pneumonia. Given the likelihood that this is somewhat hospital associated, I did start broad spectrum antibiotics and will admit her to the hospital. I did speak to the hospitalist, Dr. Carlson, who agreed to accept her and she was admitted in stabilized condition. I do not think that she is septic at this time. I do not think that she needs to go to the ICU immediately given the somewhat dubious blood pressures thatwe are getting and her now normal blood pressure. I think that she can start on the floor. She was admitted in stable condition. IMPRESSION: 1. Postoperative pneumonia. 2. Transient hypotension. Randy Garcia MD /GABRIEL Dictation ID: [id number] Yancy Faulkner RN - 09/08/2013 12:39 PM CDT Patient to be admitted to [facility]. Report called to admitting MADELYN Flores. All questions asked and answered. Room is currently being cleaned. Plan for patient to transfer to the floor when room is cleaned. Yancy Faulkner RN - 09/08/2013 12:10 PM CDT Patient resting in bed with daughters at bedside. 1st antibiotic infusing. Menu offered to patient but patient declined. Plan for admission to [facility]. Await bed placement. Debra Hansen RN - 09/08/2013 11:23 AM CDT BP 101/73, o2 99%. 2nd L fluid running. asymptomatic Debra Hansen RN - 09/08/2013 11:22 AM CDT BP 63/31, MD at the bedside. 2nd liter of fluid started, CT ordered. Pt asymoptomatic. Says my BP runs low Will reassess. Marissa Waggoner RN - 09/08/2013 9:41 AM CDT S: post op, shortness of breath B: patient states that she had back surgery on September 02. She is now having increased wheezing and shortness of breath. Unsure if fever. +cough. Denies any leg pain A: patient is short of breath. Audible wheezing. Had a neb at home. Afebrile. R: MD to see documented in this encounter Miscellaneous Notes Med Reconciliation - Carson Hopkins, Pharm D - 09/08/2013 1:22 PM CDT PHARMACY ADMISSION MEDICATION RECONCILIATION CONSULT Situation: Pharmacy has reconciled the home medications. Background: Prior to admission medications were reviewed with patient and patient's family. Assessment: The [facility] medications list has been updated as reflected in the chart below. -Patient does not have a prescription for albuterol. Patient was told she could use her grandson's nebulizer. She had one treatment this morning. -Patient has finished a 1-day course of valacyclovir for a cold sore. -Patient had only 1 dose of Delsym in the past week which she indicated didn't work. Recommendation: Please use the [employer] medication section for ordering home doses. PRIOR TO ADMISSION MEDICATION LIST: Prior to Admission Medications Outpatient Medications Last Dose Informant Patient Reported? Taking? Dextromethorphan Poly Complex (DELSYM) 30 mg/5 mL Oral Su12 Past Week Patient Yes Yes Sig: Take 10 mL by mouth every 12 (twelve) hours as needed. acetaminophen (TYLENOL) 500 mg Oral Tab 09/08/2013 Patient Yes Yes Sig: Take 1,000 mg by mouth every 6 (six) hours as needed. albuterol, conc: 2.5mg/3mL, (PROVENTIL, VENTOLIN) 2.5 mg /3 mL (0.083 %) Inhl Nebu 09/08/2013 Patient Yes Yes Si mL by Inhalation route every 6 (six) hours as needed. gcdcsyhcw-DB-YD-acetaminophen (JAYCEE-SELTZER PLUS FLU) 2-5-10-250 mg Oral TbEF 09/08/2013 Patient Yes Yes Sig: Take 2 Tabs by mouth every 4 (four) hours as needed. cyclobenzaprine (FLEXERIL) 10 mg Oral Tab No No Sig: Take 1 Tab by mouth three times a day. cyclobenzaprine (FLEXERIL) 10 mg Oral Tab 09/08/2013 Patient Yes Yes Sig: Take 10 mg by mouth three times a day as needed. oxyCODONE-acetaminophen (PERCOCET) 5-325 mg Oral Tab Past Week Patient Yes Yes Sig: Take 1-2 Tabs by mouth every four (4) to six (6) hours as needed for Pain. valACYclovir (VALTREX) 1 g Oral Tab 09/08/2013 Patient No Yes Sig: Take by mouth as directed. Take 1 tab immediately then take 2 tabs 12 hours later Facility-Administered Medications: None ALLERGIES: No Known Allergies This patient obtains medications from [facility] [address] [place] [id number] [facility]. Pharmacy information was updated in Employee Benefit Plans. Thank you for the opportunity to participate in the care of this patient. Carson Hopkins, Pharm D on September 08, 2013 at 1:22 PM documented in this encounter Plan of Treatment Scheduled Orders Name Type Priority Associated Diagnoses Order S chedule Sputum Culture Lab Routine Once for 1 Oc currences starting 09/09/2013 unti l 09/09/2013 Sputum Culture Lab Routine Once for 1 Oc currences starting 09/09/2013 unti l 09/09/2013 Scheduled Referrals Name Type Priority Associated Diagnoses Order S chedule Follow Up Follow Up Routine Ordered: 2013 documented as of this encounter Procedures Procedure Name Priority Date/Time Associated Comments Diagnosis CREATININE EGFR STAT 09/10/2013 7:09 AM Result s for this CDT procedure are i n the results section. EXTRA TUBE-EDTA Routine 09/10/2013 7:08 AM CDT LEGIONELLA URINE AGN Routine 09/09/2013 1:15 PM R esults for this CDT procedure are i n the results section. STREP PNEUMONIAE Routine 09/09/2013 1:15 PM Resul ts for this ANTIGEN DETECTION CDT procedure are in the results section. CULT-SPUTUM (INC. Routine 09/09/2013 9:30 AM Resu lts for this GRAM STAIN) CDT procedure are i n the results section. URINALYSIS MICROSCOPY DIOMEDES 09/08/2013 11:56 Re sults for this (LAB USE ONLY) AM CDT procedure are in the results section. URINALYSIS STAT 09/08/2013 11:56 Results for this MACROSCOPIC W/ AM CDT procedure are in MICROSCOPY, IF the results INDICATED (DOES NOT section. INC CULTURE) LACTIC ACID STAT 09/08/2013 11:55 Results for this AM CDT procedure are i n the results section. CT CHEST PULMONARY STAT 09/08/2013 11:23 Resul ts for this ANGIO AM CDT procedure are i n the results section. XR CHEST PA & LAT STAT 09/08/2013 10:44 Result s for this AM CDT procedure are i n the results section. EXTRA TUBE-SST (LAB Routine 09/08/2013 9:55 AM USE ONLY) CDT D DIMER QUANT STAT 09/08/2013 9:55 AM Results for this CDT procedure are i n the results section. BASIC METAB PROFILE STAT 09/08/2013 9:53 AM Re sults for this CDT procedure are i n the results section. CBC/DIFF STAT 09/08/2013 9:53 AM Results f or this CDT procedure are i n the results section. CULT-BLOOD STAT 09/08/2013 9:53 AM Results f or this CDT procedure are i n the results section. CULT-BLOOD STAT 09/08/2013 9:53 AM Results f or this CDT procedure are i n the results section. documented in this encounter Results UE ARTERIAL ULTRASOUND BILAT (09/17/2013 3:45 PM CDT) Specimen (Source) Anatomical Collection Method Collection Time Re ceived Time Location / / Volume Laterality 09/17/2013 2:53 PM CDT Impressions TEST - 09/17/2013 5:29 PM CDT Narrative TEST - 09/17/2013 5:29 PM CDT [facility] [place] ? [address] [id number] ? UPPER ARTERIAL ULTRASOUND REPORT ? Patient Name: ?? ALEX KIRK Date of Exam: 09/17/2013 ? Medical Rec #: ??[id number] ? Inpt/Outpt: ?? Outpatient ? Account #: ?Priority: ? Accession # ? [id number] ? Date of : ??1940 ?H eight: ? 62.0 in ? Patient Age: ?73 years ?Weight: ? 154.0 lb ? Patient Gender: F ? BSA: ?1.71 m? Indications:Unequal blood pressures (mor e than 20 mmHg difference between right and left arm). Intermittent right arm pa in. Pt. History: ? Type of Study: UE ARTERIAL ULTRASOUND ? UNILATERAL ? Indications: ?Unequal blood pressures (more than 20 ?mmHg difference between right and left ?arm). Intermittent right arm pain. ? Diagnosis: Devops Architect: ?Larry Rascon RVT ? Primary Physician: ?Francesco H Must ain MD ? Referring Physician: ?[id number] KHANDURAO B. KHOT ? NMHVI Physician: ? Interpreting Physician: RetuSaxenaMD ? I M P R E S S I O N ? Right arm:. Arterial Color Duplex Evalua tion of the RIGHT upper extremity ? 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 Flow distal to ?? this is monophasic. ? Left arm:. Arterial Color Duplex Evaluat ion of the LEFT upper extremity reveals no evidence of arterial stenosis. ? TECHNICAL IMAGING & DOPPLER FINDINGS ? Right Brachial Blood Pressures: 101 / 81 mm Hg ? Right Arm ??Travis (m/s) Plaque Comments ? Subclavian 1.190 ? Axillary ?? 0.32 ? monop hasic ? Brachial ?? 0.51 ? monop hasic ? Radial ? 0.31 ? mono phasic ? Ulnar ?0.70 ? mon ophasic ? Aneurysm ? AV Fistula ? Other ? Left Brachial Blood Pressures: 167/ 95 m m Hg Left Arm ?? Travis (m/s) Plaque ? Comments ? Subclavian 1.170 ?tripha sic ? Axillary ?? 0.95 ? bipha sic ? Brachial ?? 1.27 ? triph asic ? Radial ? 0.84 ? trip hasic ? Ulnar ?0.97 ? tri phasic ? Aneurysm ? AV Fistula ? Other ? Findings called to: ? [id number] Retu Breana MD ? Electronically signed by [id number] Retu Saxen a MD ? Signature Date/Time: 09/17/2013/5:29:00 P M ? Final Procedure Note Cecy Toussaint MD - 09/17/2013 [facility] [address] [place] [address] UPPER ARTERIAL ULTRASOUND REPORT Patient Name: ALEX KIRK Date of Exam: 09/17/2013 Medical Rec #: [id number] Inpt/Outpt: Outpa tient Account #: Priority: Date of : 1940 Height: 62.0 i n Patient Age: 73 years Weight: 154.0 lb Patient Gender: F BSA: 1.71 m? Indications:Unequal blood pressures (mor e than 20 mmHg difference between right and left arm). Intermittent right arm pa in. Pt. History: Type of Study: UE ARTERIAL ULTRASOUND UNILATERAL Indications: Unequal blood pressures (mo re than 20 mmHg difference between right and left arm). Intermittent right arm pain. Diagnosis: Devops Architect: Larry MELO Primary Physician: Francesco Bonner MD Referring Physician: [id number] MOUNA WETZEL [facility] Physician: Interpreting Physician: Afia Goss M P R E S S I O N Right arm:. 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 Flow distal to this is monophasic. Left arm:. Arterial Color Duplex Evaluat ion of the LEFT upper extremity reveals no evidence of arterial stenosis. TECHNICAL IMAGING & DOPPLER FINDINGS Right Brachial Blood Pressures: 101 / 81 mm Hg Right Arm Travis (m/s) Plaque Comments Subclavian 1.190 Axillary 0.32 monophasic Brachial 0.51 monophasic Radial 0.31 monophasic Ulnar 0.70 monophasic Aneurysm AV Fistula Other Left Brachial Blood Pressures: 167/ 95 m m Hg Left Arm Travis (m/s) Plaque Comments Subclavian 1.170 triphasic Axillary 0.95 biphasic Brachial 1.27 triphasic Radial 0.84 triphasic Ulnar 0.97 triphasic Aneurysm AV Fistula Other Findings called to: [id number] Cecy Toussaint MD Electronically signed by [id number] Cecy reaves MD Signature Date/Time: 09/17/2013/5:29:00 P M Final Mouna Carlson MD CV VASCULAR PROCEDURES Performing Organization Address City/State/ZIP Code Phon e Number TEST (ABNORMAL) Creatinine / eGFR (09/10/2013 7:09 AM CDT) athologist Signature CREATININE 0.99 0.60 - 09/10/2013 [place] BILL 1.30 mg/dL 7:37 AM CDT LABORATORY EST GFR 55 (L) >60 mL/min 09/10/2013 [place] BILL (CKD-EPI) 7:37 AM CDT LABORATORY EST GFR IF >60 >60 mL/min 09/10/2013 [place] BILL AM 7:37 AM CDT LABORATORY Specimen Anatomical Collection Method / Collection Time Recei lisa Time (Source) Location / Volume Laterality Blood specimen Venipuncture / 09/10/2013 7:09 09/11/19 14 7:12 (specimen) Unknown AM CDT AM CDT Mouna Carlson MD CHEMISTRY ORDERABLE Performing Organization Address [facility] Phon e Number [facility] [address] [place] [phone] Extra Tube-EDTA (Lab Use Only) (09/10/2013 7:08 AM CDT) Specimen Anatomical Collection Method / Collection Time Recei lisa Time (Source) Location / Volume Laterality Blood specimen Venipuncture / 09/10/2013 7:08 09/11/19 14 7:19 (specimen) Unknown AM CDT AM CDT Mouna Carlson MD HEMATOLOGY ORDERABLE Performing Organization Address [facility] Phon e Number [address] [address] Legionella Urine Antigen Detection (09/09/2013 1:15 PM CDT) [facility] Method Time Signature LEGIONELLA Negative for Negative for 09/10/2013 [place] URINE ATGN DET L.pneumophil L.pneumophil 11:35 AM [facility] a serogroup a serogroup CDT LABORATORY 1 antigen in 1 antigen in urine. urine. Comment: Negative result suggests no rec ent or current infection. Infection due to Legionella cannot be ruled out since oth er serogroups and species may cause disease, antigen may not be present in urine in e esthela infection, and the level of antigen present in the urine may be below the de tection limit of the test. Specimen Anatomical Collection Method Collection Time Receive d Time (Source) Location / / Volume Laterality Urine specimen 09/09/2013 1:15 PM 014 1:18 (specimen) CDT PM CDT Mouna Carlson MD IMMUNOLOGY ORDERABLE Performing Organization Address [facility] Phon e Number [address] [place] [address] LABORATORY [facility] [address] [place] [address] [place] [address] Strep Pneumo Urine Atgn Det (09/09/2013 1:15 PM CDT) [facility] Signature STREP Negative for Negative for 09/10/2013 [place] PNEUMONIAE pneumococcus pneumococcus 11:44 AM [facility] ANTIGEN antigen in antigen in CDT LABORATORY DETECTION urine. urine., Negative for pneumococcus antigen in CSF. Comment: Negative result suggests no cur rent or recent pneumococcal infection. Infection due to S. pneumoniae cannot be ruled out since the antigen present in the sample may be below the detection limit of the test. Specimen Anatomical Collection Method Collection Time Receive d Time (Source) Location / / Volume Laterality Urine specimen 09/09/2013 1:15 PM 014 1:18 (specimen) CDT PM CDT Mouna Carlson MD IMMUNOLOGY ORDERABLE Performing Organization Address City/[facility]/ZIP Code Phon e Number [facility] [address] [place] [address] LABORATORY [facility] [address] [place], [place] [address] Sputum Culture (09/09/2013 9:30 AM CDT) [facility] Signature Sputum Gram stain 09/09/2013 [facility] Culture only 11:24 AM CDT LABORATORY performed; no culture to follow. Gram Stain >10 Epithelial 09/09/2013 [facility] Result cells / LPF 11:24 AM CDT LABORATORY Comment: Sputum specimen unsatisfactory for culture. Specimen Anatomical Collection Method Collection Time Receive d Time (Source) Location / / Volume Laterality Sputum specimen COUGHED SPUTUM 09/09/2013 9:30 AM 08/31 9:44 (specimen) SPECIMEN / Unknown CDT AM CDT Narrative [facility] - 09/09/2013 11:2 4 AM CDT Person Notified: Suha Guan/RN , Unit: 3000. ?? Time Notified: 1123 AM Mouna Carlson MD MICROBIOLOGY ORDERABLE Performing Organization Address City/[facility]/ZIP Code Phon e Number [facility] [address] [place] [address] (ABNORMAL) Urinalysis Microscopy (Lab Use Only) (09/08/2013 11:56 AM CDT) Patholo gist Method Time Signature WBC-UA MICRO 1-4 None Seen, 09/08/2013 [facility] Occasional, 12:34 PM LABORATORY Few, 1-4 /hpf CDT BACTERIA Present (A) Absent, None 09/08/2013 [facility] Seen 12:34 PM LABORATORY CDT SQUAM Many (A) None Seen 09/08/2013 [facility] EPITHELIAL /lpf 12:34 PM LABORATORY CDT RBC-UA 1-4 (A) None Seen, 09/08/2013 [facility] Occasional 12:34 PM LABORATORY /hpf CDT Specimen Anatomical Collection Method Collection Time Receive d Time (Source) Location / / Volume Laterality Urine specimen URINE SPECIMEN / Collection / 09/08/2013 11:56 09/08 (specimen) Unknown Unknown AM CDT 12:09 PM CDT Randy Garcia MD URINE ORDERABLE Performing Organization Address City/State/ZIP Code Phon e Number [facility] [address] [place] [address] (ABNORMAL) Urinalysis w/ Microscopy, if indicated (09/08/2013 11:56 AM CDT) [facility] [employer] Method Time Signature PH URINE 7.0 4.5 - 8.0 09/08/2013 [facility] 12:17 PM LABORATORY CDT SP.GRAVITY, <=1.005 (L) 1.015 - 09/08/2013 [facility] UA 1.025 12:17 PM LABORATORY CDT GLUCOSE, UA Negative Negative 09/08/2013 [facility] mg/dL 12:17 PM LABORATORY CDT KETONE, UA Negative Negative 09/08/2013 [facility] mg/dL 12:17 PM LABORATORY CDT BILIRUBIN, UA Negative Negative 09/08/2013 [facility] 12:17 PM LABORATORY CDT UROBILINOGEN, 0.2 0.2 - 1.0 09/08/2013 [facility] UA EU/dL 12:17 PM LABORATORY CDT PROTEIN, UA Negative Negative 09/08/2013 [facility] mg/dL 12:17 PM LABORATORY CDT OCCULT BLOOD, Trace Negative, 09/08/2013 [facility] UA Trace, 12:17 PM LABORATORY TRACE-LYSED, CDT TRACE-INTACT WBC ESTERASE, Negative Negative, 09/08/2013 [facility] UA Trace 12:17 PM LABORATORY CDT NITRITE, UA Negative Negative 09/08/2013 [facility] 12:17 PM LABORATORY CDT Specimen Anatomical Collection Method Collection Time Receive d Time (Source) Location / / Volume Laterality Urine specimen URINE SPECIMEN / Collection / 09/08/2013 11:56 09/08 (specimen) Unknown Unknown AM CDT 12:09 PM CDT Randy Garcia MD URINE ORDERABLE Performing Organization Address City/[facility]/ZIP Code Phon e Number [facility] [address] [place] [address] (ABNORMAL) Lactic Acid (Lactate) (09/08/2013 11:55 AM CDT) athologist Signature LACTIC ACID 2.2 (H) 0.4 - 2.0 09/08/2013 [facility] mMol/L 12:27 PM CDT LABORATORY Specimen Anatomical Collection Method / Collection Time Recei lisa Time (Source) Location / Volume Laterality Blood specimen Venipuncture / 09/08/2013 11:55 014 (specimen) Unknown AM CDT 12:07 PM CDT Randy Garcia MD CHEMISTRY ORDERABLE Performing Organization Address City/[facility]/ZIP Code Phon e Number [facility] [address] [place] [address] CT CHEST PULMONARY ANGIO (09/08/2013 11:23 AM CDT) Anatomical Region Laterality Modality Chest Computed Tomography Specimen (Source) Anatomical Collection Method Collection Time Re ceived Time Location / / Volume Laterality 09/08/2013 11:26 AM CDT Impressions 09/08/2013 11:37 AM CDT IMPRESSION: 1. ?? No CT evidence of pulmonary emboli sm. 2. ??Mild lingula and minimal left upper lobe airspace disease. ??This is most likely of infectious/inflammatory etiology in the acute setting. Narrative 09/08/2013 11:37 AM CDT EXAM: ??CT CHEST PULMONARY ANGIO CLINICAL DATA: Shortness of Breath ??ADD . ??INFORMATION: ??Cough. COMPARISON: None. TECHNIQUE: A CT angiogram (CTA) of the p ulmonary arteries and chest was performed. ??Specifically, preliminary unenhanced images were obtained through the pulmonary arteries. ??Following this, during wanda lynette infusion of intravenous contrast, th in-section contiguous transaxial images were obtained through the thorax. ??In addition, multiplanar and three dimensional (3D) reformations through the pulmonary arterial tree were generated from the a cquisition scanner and reviewed. ??A total of 100 cc of Omnipaque was administered intravenously. FINDINGS: ??No intraluminal filling defe cts are seen in visualized pulmonary arterial branches to suggest pulmonary embolism. ??No right ventricular strain is visualized. Lungs are clear without mass lesions. ?? Mild lingula and minimal left medial upper lobe airspace disease is noted. ??No pleural/pericardial effusion or pneumothorax is seen. ??No thoracic lymphadenopathy is noted. ? Visualized upper abdomen is unremarkable . Osseous structures are without suspiciou s lesions. Procedure Note Myron Martinez MD - 09/08/2013Form atting of this note might be different from the original. EXAM: CT CHEST PULMONARY ANGIO CLINICAL DATA: Shortness of Breath ADD. INFORMATION: Cough. COMPARISON: None. TECHNIQUE: A CT angiogram (CTA) of the p ulmonary arteries and chest was performed. Specifically, preliminary unenhanced images were obtained through the pulmonary arteries. Following this, during bolus infusion of intravenous contrast, thin-section ashutosh guous transaxial images were obtained through the thorax. In addition, multiplanar and three dimensional (3D) reformations through the pulmonary arterial tree were generated from the acquisition scanner a nd reviewed. A total of 100 cc of Omnipaque was administered intravenously. FINDINGS: No intraluminal filling defect s are seen in visualized pulmonary arterial branches to suggest pulmonary embolism. No right ventricular strain is visualized. Lungs are clear without mass lesions. Mi ld lingula and minimal left medial upper lobe airspace disease is noted. No pleural/pericardial effusion or pneumothorax is seen. No thoracic lymphadenopathy is noted. Visualized upper abdomen is unremarkable . Osseous structures are without suspiciou s lesions. IMPRESSION: 1. No CT evidence of pulmonary embolism. 2. Mild lingula and minimal left upper l obe airspace disease. This is most likely of infectious/inflammatory etiology in the acute setting. Randy Garcia MD CT ORDERABLE XRAY CHEST PA/LATERAL (09/08/2013 10:44 AM CDT) Anatomical Region Laterality Modality Chest Computed Radiography Specimen (Source) Anatomical Collection Method Collection Time Re ceived Time Location / / Volume Laterality 09/08/2013 10:44 AM CDT Impressions 09/08/2013 10:45 AM CDT IMPRESSION: 1. ??Mild vascular congestion. Narrative 09/08/2013 10:45 AM CDT EXAM: ??XR CHEST PA & LAT DATE: 09/08/2013 10:37 AM CLINICAL DATA: ??Shortness of breath COMPARISON: ??08/09/2013. FINDINGS: HEART: ??Normal in size. ?? PULMONARY VASCULARITY: ??Mild vascular c ongestion. ?? LUNG URBAN: ??No focal infiltrates, eff usions, or worrisome pulmonary nodules. ? TUBES/LINES: ??None present. OTHER: ? Procedure Note Amando Green MD - 09/08/2013Form atting of this note might be different from the original. EXAM: XR CHEST PA & LAT DATE: 09/08/2013 10:37 AM CLINICAL DATA: Shortness of breath COMPARISON: 08/09/2013. FINDINGS: HEART: Normal in size. PULMONARY VASCULARITY: Mild vascular con gestion. LUNG URBAN: No focal infiltrates, effus ions, or worrisome pulmonary nodules. TUBES/LINES: None present. OTHER: IMPRESSION: 1. Mild vascular congestion. Randy Garcia MD XRAY ORDERABLE Extra Tube-SST (Lab Use Only) (09/08/2013 9:55 AM CDT) Specimen Anatomical Collection Method / Collection Time Recei lisa Time (Source) Location / Volume Laterality Blood specimen Venipuncture / 09/08/2013 9:55 09/09/19 14 3:25 (specimen) Unknown AM CDT PM CDT Mouna Carlson MD CHEMISTRY ORDERABLE Performing Organization Address City/State/ZIP Code Phon e Number [facility] [address] [place] [address] (ABNORMAL) D-Dimer (09/08/2013 9:55 AM CDT) [facility] Method Time Signature D DIMER QUANT 404.0 (H) 0.0 - 09/08/2013 [facility] 230.0 10:51 AM CDT LABORATORY ng/mL Comment: A D-Dimer value of less than 23 0 ng/mL can be used for the exclusion of thrombo-embolism in patients with a low or medium clinical probability of deep vein thrombosis or pulmonary embolism. This m eets the FDA approved guidelines for the assay. Specimen Anatomical Collection Method / Collection Time Recei lisa Time (Source) Location / Volume Laterality Blood specimen Venipuncture / 09/08/2013 9:55 09/09/19 14 (specimen) Unknown AM CDT 10:39 AM CDT Randy Garcia MD COAGULATION ORDERABLE Performing Organization Address City/[facility]/ZIP Code Phon e Number [facility] [address] [place] [address] CULT-BLOOD (09/08/2013 9:53 AM CDT)Only the most recent of2 resultswithin the time period is included. [facility] Method Time Signature Blood Culture No growth 5 09/14/2013 [facility] days. 7:43 AM CDT LABORATORY Specimen Anatomical Collection Method / Collection Time Recei lisa Time (Source) Location / Volume Laterality Blood specimen RIGHT UPPER ARM Venipuncture / 09/08/2013 9:53 09/08 (specimen) STRUCTURE / Unknown AM CDT 10:02 AM CDT Unknown Randy Garcia MD MICROBIOLOGY ORDERABLE Performing Organization Address City/[facility]/ZIP [facility] Phon e Number [facility] [address] [place] [address] LABORATORY [facility] [address] [place], [place] [address] (ABNORMAL) Basic Metabolic Profile (09/08/2013 9:53 AM CDT) Analysis Performed At Patho logist Time Signature SODIUM 137 136 - 145 09/08/2013 [facility] mMol/L 10:11 AM CDT LABORATORY POTASSIUM 3.6 3.5 - 5.1 09/08/2013 [facility] mMol/L 10:11 AM CDT LABORATORY CHLORIDE 101 98 - 107 09/08/2013 [facility] mMol/L 10:11 AM CDT LABORATORY CARBON DIOXIDE 25 21 - 32 09/08/2013 [facility] mMol/L 10:11 AM CDT LABORATORY BUN (UREA 9 7 - 18 09/08/2013 [facility] NITRO) mg/dL 10:11 AM CDT LABORATORY CREATININE 0.90 0.60 - 09/08/2013 [facility] 1.30 mg/dL 10:11 AM CDT LABORATORY EST GFR >60 >60 mL/min 09/08/2013 [facility] (CKD-EPI) 10:11 AM CDT LABORATORY EST GFR IF >60 >60 mL/min 09/08/2013 [facility] AM 10:11 AM CDT LABORATORY GLUCOSE 111 (H) 60 - 100 09/08/2013 [facility] mg/dL 10:11 AM CDT LABORATORY CALCIUM, SERUM 9.6 8.5 - 10.1 09/08/2013 [facility] mg/dL 10:11 AM CDT LABORATORY ANION GAP 11.0 0.0 - 15.0 09/08/2013 [facility] mMol/L 10:11 AM CDT LABORATORY Specimen Anatomical Collection Method / Collection Time Recei lisa Time (Source) Location / Volume Laterality Blood specimen Venipuncture / 09/08/2013 9:53 09/09/19 14 (specimen) Unknown AM CDT 10:00 AM CDT Randy Garcia MD CHEMISTRY ORDERABLE Performing Organization Address City/State/ZIP Code Phon e Number [facility] [address] [place] [address] CBC w/diff (09/08/2013 9:53 AM CDT) P athologist Signature WBC 8.2 4.3 - 10.8 09/08/2013 [facility] K/uL 10:10 AM CDT LABORATORY RBC 4.40 4.20 - 09/08/2013 [facility] 5.40 M/uL 10:10 AM CDT LABORATORY HEMOGLOBIN 14.1 12.0 - 09/08/2013 [facility] 16.0 gm/dL 10:10 AM CDT LABORATORY HEMATOCRIT 39.9 36.0 - 09/08/2013 [facility] 48.0 % 10:10 AM CDT LABORATORY MCV 91 80 - 100 09/08/2013 [facility] fl 10:10 AM CDT LABORATORY MCH 32 27 - 33 pg 09/08/2013 [facility] 10:10 AM CDT LABORATORY MCHC 35 33 - 36 09/08/2013 [facility] gm/dL 10:10 AM CDT LABORATORY RDW 12.3 11.5 - 09/08/2013 [facility] 14.5 % 10:10 AM CDT LABORATORY PLATELET COUNT 307 150 - 400 09/08/2013 [facility] K/uL 10:10 AM CDT LABORATORY MPV 10.9 6.5 - 12.0 09/08/2013 [facility] 10:10 AM CDT LABORATORY PMN % 59.3 % 09/08/2013 [facility] 10:10 AM CDT LABORATORY IG% <=1.0 % 09/08/2013 [facility] 10:10 AM CDT LABORATORY LYMPH % 32.5 % 09/08/2013 [facility] 10:10 AM CDT LABORATORY MONO % 6.1 % 09/08/2013 [facility] 10:10 AM CDT LABORATORY EOS % 1.9 % 09/08/2013 [facility] 10:10 AM CDT LABORATORY BASO % 0.2 % 09/08/2013 [facility] 10:10 AM CDT LABORATORY PMN ABSOLUTE 4.88 1.80 - 09/08/2013 [facility] 7.80 K/uL 10:10 AM CDT LABORATORY IG ABSOLUTE K/uL 09/08/2013 [facility] 10:10 AM CDT LABORATORY LYMPH ABSOLUTE 2.68 1.00 - 09/08/2013 [facility] 4.00 K/uL 10:10 AM CDT LABORATORY MONO ABSOLUTE 0.50 0.00 - 09/08/2013 [facility] 1.00 K/uL 10:10 AM CDT LABORATORY EOS ABSOLUTE 0.16 0.00 - 09/08/2013 [facility] 0.45 K/uL 10:10 AM CDT LABORATORY BASO ABSOLUTE 0.02 0.00 - 09/08/2013 [facility] 0.20 K/ul 10:10 AM CDT LABORATORY Specimen Anatomical Collection Method / Collection Time Recei lisa Time (Source) Location / Volume Laterality Blood specimen Venipuncture / 09/08/2013 9:53 09/09/19 14 (specimen) Unknown AM CDT 10:00 AM CDT Randy Garcia MD HEMATOLOGY ORDERABLE Performing Organization Address City/State/ZIP Code Phon e Number [facility] [address] [place] [address] documented in this encounter Visit Diagnoses Diagnosis Low blood pressure reading - Primary Nonspecific low blood pressure reading Pneumonia Pneumonia, organism unspecified Low blood pressure reading Nonspecific low blood pressure reading documented in this encounter Administered Medications Inactive Administered Medications - up to 3 most recent administrations Medication Order MAR Action Action Date Dose Rate Site saline FLUSH syringe 5 mL Given 09/10/2013 5:13 AM CDT 5 mL 5 mL, Intravenous, EVERY 8 HOURS, First dose on Fri09/08/13 at 2200, Until Discontinued Given 09/09/2013 9:00 PM CDT 5 mL Given 09/09/2013 1:14 PM CDT 5 mL saline FLUSH syringe 5 mL Given 09/10/2013 8:48 AM CDT 5 mL 5 mL, Intravenous, NEEDED, Starting on Fri09/08/13 at 1600, Until Fri09/10/13 at 1646, Line Care acetaminophen (TYLENOL) tablet 1,000 mg Given 09/09/2013 9:15 AM CDT 1,000 mg 1,000 mg, oral, EVERY 6 HOURS NEEDED, Starting on Fri09/08/13 at 1600, Until Fri09/10/13 at 1646, fever, pain Given 09/08/2013 7:04 PM CDT 1,000 mg acetaminophen (TYLENOL) tablet 500-1,000 Given 09/08/2013 12 :49 PM CDT 1,000 mg mg 500-1,000 mg (1-2 tablet), oral, ONCE NEEDED, 1 dose, Starting on Fri09/08/13 at 1240, Until Fri09/08/13 at 1249, fever ACETAMINOPHEN 500 MG TABLET 1 dose, Starting on Fri09/08/13 at 1242, Until Fri at 1249 acyclovir 5% (ZOVIRAX) ointment 1 g Given 09/10/2013 9:48 AM CDT 1 g 1 g (1 Application), topical, FIVE TIMES A DAY, First dose on Fri09/08/13 at 1800, Until Discontinued Given 09/09/2013 6:00 PM CDT 1 g Given 09/09/2013 1:14 PM CDT 1 g albuterol (conc: 2.5mg/3mL) (PROVENTIL, Given 09/09/2013 4:19 AM CDT 2.5 mg VENTOLIN) nebulizer solution 2.5 mg 2.5 mg, Inhalation, EVERY 4 HOURS NEEDED, Starting on Fri09/08/13 at 1603, Until Fri09/10/13 at 1646, shortness of breath albuterol-ipratropium (conc: 3-0.5mg/3mL) Given 09/08/2013 10:00 AM CDT 3 mL (DUO-NEB) nebulizer solution 3 mL 3 mL (1 ampule), Inhalation, ONCE, 1 dose, On Fri09/08/13 at 1000 albuterol-ipratropium (conc: 3-0.5mg/3mL) Given 09/09/2013 9:05 PM CDT 3 mL (DUO-NEB) nebulizer solution 3 mL 3 mL (1 ampule), Inhalation, FOUR TIMES A DAY-RESPIRATORY, First dose on Fri09/08/13 at 1615, Until Discontinued Given 09/09/2013 4:51 PM CDT 3 mL Given 09/09/2013 12:37 PM CDT 3 mL cefEPIME ( MAXIPIME ) 2 g in D5W 100 mL IV Given 09/08/2013 1:14 PM CDT 2 g piggyback 2 g, Intravenous, ONCE, 1 dose, On Fri09/08/13 at 1200, Administer over 30 Minutes ciprofloxacin ( CIPRO ) 200 mg IV piggyb ack Given 09/08/2013 12:08 PM CDT 200 mg 200 mg, Intravenous, ONCE, 1 dose, On Fri09/08/13 at 1200, Administer over 60 Minutes dextromethorphan 10 mg-guaifenesin 100 mg per 5 Given 09/10/2013 9:47 AM CDT 5 mL mL (ROBITUSSIN DM) oral syrup 5 mL 5 mL, oral, EVERY 6 HOURS (NS), First dose on Fri09/08/13 at 1615, Until Discontinued Given 09/10/2013 3:40 AM CDT 5 mL Given 09/09/2013 9:01 PM CDT 5 mL famotidine (PEPCID) injection 20 mg Given 09/09/2013 8:55 PM CDT 20 mg 20 mg, Intravenous, DAILY, First dose on Fri09/08/13 at 2000, Until Discontinued Given 09/08/2013 7:06 PM CDT 20 mg iohexol 350 mgI/mL (OMNIPAQUE) 100 mL Push 09/08/2013 11:24 AM CDT 100 mL 100 mL, Intravenous, INTRA-PROCEDURE ONE TIME DOSE NEEDED, 1 dose, Starting on Fri09/08/13 at 1123, Until Fri09/08/13 at 1124, per procedure levofloxacin ( LEVAQUIN ) 750 mg IV Given 09/09/2013 12:32 AM CD T 750 mg piggyback 750 mg, Intravenous, EVERY 48 HOURS (NS), First dose on Shannon 09/09/13 at 0000, Until Discontinued, Administer over 90 Minutes piperacillin/tazobactam ( ZOSYN ) 4.5 g in D5W Given 0 09/10/2013 8:48 AM CDT 4.5 g 100 mL IV piggyback 4.5 g, Intravenous, EVERY 6 HOURS, First dose on Fri09/08/13 at 2000, Until Discontinued, Administer over 60 Minutes Given 09/10/2013 2:51 AM CDT 4.5 g Given 09/09/2013 8:59 PM CDT 4.5 g potassium chloride 20 mEq in New Bag 09/08/2013 4:30 PM CDT 1,000 mL 125 mL/hr sodium chloride 0.9% IV infusion 1,000 mL at 125 mL/hr, Intravenous, ONCE, 1 dose, On Fri09/08/13 at 1615 predniSONE (DELTASONE) tablet 60 mg Given 09/08/2013 11:00 AM CDT 60 mg 60 mg, oral, ONCE, 1 dose, On Fri09/08/13 at 1100 sodium chloride 0.9 % IV soln New Bag 09/08/2013 10:00 AM CDT 1,000 mL 2000 mL/hr 1,000 mL at 2,000 mL/hr, Intravenous, ONCE, 1 dose, On Fri09/08/13 at 1000 sodium chloride 0.9 % IV soln New Bag 09/08/2013 11:00 AM CDT 1,000 mL 2000 mL/hr 1,000 mL at 2,000 mL/hr, Intravenous, ONCE, 1 dose, On Fri09/08/13 at 1100 sodium chloride 0.9 % IV soln 40 mL Push 09/08/2013 11:24 AM CDT 40 mL Intravenous, INTRA-PROCEDURE ONE TIME DOSE NEEDED, 1 dose, Starting on Fri09/08/13 at 1124, Until Fri09/08/13 at 1124 vancomycin (VANCOCIN) 1,250 mg in sodium Given 09/09/2013 1:11 P M CDT 1,250 mg chloride 0.9 % 250 mL IV piggyback 1,250 mg, Intravenous, EVERY 24 HOURS (NS), First dose on Shannon 09/09/13 at 1345, Until Discontinued vancomycin (VANCOCIN) 1,500 mg in sodium Given 09/08/2013 1:50 P M CDT 1,500 mg chloride 0.9 % 500 mL IV piggyback 1,500 mg (20 mg/kg ? 72.6 kg), Intravenous, ONCE, 1 dose, On Fri09/08/13 at 1200 documented in this encounter Active and Recently Administered Medications Times are shown in CDT. Scheduled Medication Order 09/08/2013 09/09/2013 09/10/2013 saline FLUSH syringe 5 mL (CANCELED) 2142 (Given - P rovider: Ritchie Rhodes RN) 041 (Given - Provider: Jefferson mclean RN)0600 (Canceled Entry - Provider: Jefferson Garner RN)1314 (Given - Provider: Suha Guan RN)2100 (Given - Provider: Yasemin Leonardo RN) 0513 (Given - Provider: Yasemin omalley RN) 5 mL, Intravenous, EVERY 8 HOURS, First dose on Fri09/08/13 at 2200, Until Discontinued acyclovir 5% (ZOVIRAX) ointment 1 g 1830 (Given - Prov ider: Ritchie Rhodes RN)214 (Given - Provider: Ritchie Rhodes RN) 0600 (Not Given - Provider: Jefferson Garner RN - Reason: Patient sleeping)0951 (Given - Provider: Suha Guan RN)1314 (Given - Provider: Suha Guan RN)1800 (Given - Provider: Suha Guan RN)2100 (Declined - Provider: Yasemin Leonardo RN) 0600 (Not Given - Provider: Yasemin Leonardo RN - Reason: Patient sleeping)0948 (Given - Provider: Olga Ulloa RN) 1 Application = 1 g, Topical, FIVE TIMES A DAY, First dose on Fri09/08/13 at 1800, Until Discontinued albuterol-ipratropium (conc: 3-0.5mg/3mL ) (DUO-NEB) nebulizer solution 3 mL (COMPLETED) 1000 (Given - Provider: Sourav Enriquez, RT) 3 mL (1 ampule), Inhalation, ONCE, 1 dose, On Fri09/08/13 at 1000 albuterol-ipratropium (conc: 3-0.5mg/3mL ) (DUO-NEB) nebulizer solution 3 mL (CANCELED) 1709 (Given - Provider: Jacqueline Burrows, RT)1952 (Given - Provider: Tami Gustafson, RT) 0849 (Given - Provider: Bethany Nuno, RT)1237 (Given - Provider: Sourav Enriquez, RT)1651 (Given - Provider: Asher Patino, RT)2105 (Given - Provider: Asher Patino, RT) 0800 (Declined - Provider: Aminata Aly, RT) 1 Ampule = 3 mL, Inhalation, FOUR TIMES A DAY-RESPIRATORY, First dose on Fri09/08/13 at 1615, Until Discontinued cefEPIME ( MAXIPIME ) 2 g in D5W 100 mL IV piggyback ( COMPLETED) 1314 (Given - Provider: Yancy Faulkner RN)1344 (Stopped. - Provider: Yancy Faulkner RN) 2 g, Intravenous, ONE TIME DOSE, 1 dose, Fri09/08/13 at 1200, for 30 Minutes ciprofloxacin ( CIPRO ) 200 mg IV piggyback (COMPLETED ) 1208 (Given - Provider: Yancy Faulkner RN)1308 (Stopped. - Provider: Yancy Faulkner RN) 200 mg, Intravenous, ONE TIME DOSE, 1 dose, Fri09/08/13 at 12 00, for 60 Minutes dextromethorphan 10 mg-guaifenesin 100 m g per 5 mL (ROBITUSSIN DM) oral syrup 5 mL (CANCELED) 1631 (Given - Provider: Anjelica Darby, MADELYN )2141 (Given - Provider: Ritchie Rhodes, MADELYN) 0416 (Given - Provider: Jefferson mclean RN)0946 (Given - Provider: Suha Guan, MADELYN)1615 (Declined - Provider: Suha Guan, MADELYN)2101 (Given - Provider: Yasemin Leonardo, MADELYN) 0340 (Given - Provider: Yasemin Leonardo RN)0947 (Given - Provider: Olga Ulloa, MADELYN) 5 mL, Oral, EVERY 6 HOURS (NS), First do se on Fri09/08/13 at 1615, Until Discontinued famotidine (PEPCID) injection 20 mg (CANCELED) 1906 (G iven - Provider: Ritchie Rhodes, RN) 2054 (Given - Provider: Yasemin Leonardo, MADELYN) 20 mg, Intravenous, DAILY, First dose on Fri09/08/13 at 2000, Until Discontinued levofloxacin ( LEVAQUIN ) 750 mg IV piggyback (CANCELED) 003 (Given - Provider: Anjana Blanco, MADELYN) 750 mg, Intravenous, EVERY 48 HOURS (NS) , First dose on Fri09/09/13 at 0000, Until Discontinued, for 90 Minutes piperacillin/tazobactam ( ZOSYN ) 4.5 g in D5W 100 mL IV piggyback (CANCELED) 214 (Given - Provider: Ritchie Rhodes RN) 0200 (Given - Provider: Jefferson Garner RN)0915 (Given - Provider: Hardik Sidhu RN)1543 (Given - Provider: Sandra Godinez)205 (Given - Provider: Yasemin Leonardo, MADELYN) 0251 (Given - Provider: Yasemin Leonardo RN)0848 (Given - Provider: Olga Ulloa, MADELYN)0948 (Stopped. - Provider: Olga Ulloa, MADELYN) 4.5 g, Intravenous, EVERY 6 HOURS, First dose on Fri09/08/13 at 2000, Until Discontinued, for 60 Minutes potassium chloride 20 mEq in sodium chlo ride 0.9% IV infusion 1,000 mL (COMPLETED) 1630 (New Bag - Provider: Anjelica Darby, MADELYN) at 125 mL/hr, Intravenous, ONCE, 1 dose, On Fri09/08/13 at 1615 predniSONE (DELTASONE) tablet 60 mg (COMPLETED) 1100 ( Given - Provider: Marissa Waggoner, MADELYN) 60 mg, Oral, ONE TIME DOSE, 1 dose, Fri09/08/13 at 1100 sodium chloride 0.9 % IV soln 1,000 mL (COMPLETED) 100 0 (New Bag - Provider: Debra Hansen RN)1030 (Stopped - Provider: Debra Hansen RN) at 2,000 mL/hr, Intravenous, ONCE, 1 dose, On Fri09/08/13 at 1000 sodium chloride 0.9 % IV soln 1,000 mL (COMPLETED) 110 0 (New Bag - Provider: Debra Hansen, MADELYN)1130 (Stopped - Provider: Debra Hansen RN) 1,000 mL, at 2,000 mL/hr, Intravenous, O NE TIME DOSE, 1 dose, Fri09/08/13 at 1100 vancomycin (VANCOCIN) 1,250 mg in sodium chloride 0.9 % 250 mL IV piggyback (CANCELED) 1311 (Given - Provider: Suha Guan RN ) 1,250 mg, Intravenous, EVERY 24 HOURS (N S), First dose on Shannon 09/09/13 at 1345, Until Discontinued vancomycin (VANCOCIN) 1,500 mg in sodium chloride 0.9 % 500 mL IV piggyback (COMPLETED) 1350 (Given - Provider: Yancy Faulkner RN) 20 mg/kg ? 72.6 kg = 1,500 mg, Intravenous, ONE TIME DOSE, 1 dose, Fri09/08/13 at 1200 PRN Medication Order 09/08/2013 09/09/2013 09/10/2013 saline FLUSH syringe 5 mL (CANCELED) 0848 (Given - Provider: Olga Ulloa RN) 5 mL, Intravenous, NEEDED, Starting W ed 09/08/13 at 1600, Until Fri09/10/13 at 1646, Line Care acetaminophen (TYLENOL) tablet 1,000 mg (CANCELED) 190 4 (Given - Provider: Ritchie Rhodes, MADELYN) 0915 (Given - Provider: Hardik Sidhu, MADELYN) 1,000 mg, Oral, EVERY 6 HOURS NEEDED, Starting 09/08/13 at 1600, Until Fri09/10/13 at 1646, Fever, Pain acetaminophen (TYLENOL) tablet 500-1,000 mg (COMPLETED ) 1249 (Given - Provider: Yancy Faulkner, MADELYN) 500-1,000 mg (1-2 tablet), oral, ONCE NEEDED, 1 dose, Starting on Fri09/08/13 at 1240, Until 4/9/14 at 1249, fever albuterol (conc: 2.5mg/3mL) (PROVENTIL, VENTOLIN) nebulizer solution 2.5 mg (CANCELED) 0419 (Given - Provider: Tami mclean, RT) 2.5 mg, Inhalation, EVERY 4 HOURS NEE DED, Starting Fri09/08/13 at 1603, Until Fri09/10/13 at 1646, Shortness of breath iohexol 350 mgI/mL (OMNIPAQUE) 100 mL (COMPLETED) 112 (Push - Provider: Fabiana Jarquin) 100 mL, Intravenous, INTRA-PROCEDURE ONE TIME DOSE NEEDED, 1 dose, Starting on Fri09/08/13 at 1123, Until Fri09/08/13 at 1124, per procedure sodium chloride 0.9 % IV soln 40 mL (COMPLETED) 112 ( Push - Provider: Fabiana Jarquin) Intravenous, INTRA-PROCEDURE ONE TIME DO SE NEEDED, 1 dose, Starting on Fri09/08/13 at 1124, Until Fri09/08/13 at 1124 documented in this encounter Care Teams Coat Joiner Lockstitch Relationship Specialty Start Date End Date Francesco Bonner MD PCP - General 08/26/1310/26 [facility] PCP - Primary Care Clinic 08/30/13 Francesco Bonner MD 08/11/13 documented as of this encounter
--- OUTSIDE RECORDS SUMMARY | 2022-02-13 11:41 | XMS_ITS | Encounter Summary ---
:1940 Author Organization [facility] Address [address] [place] [address] Care Team Providers Name Role Phone Francesco Bonner MD Unavailable Unavailable Francesco Bonner MD Primary Care Provider Unavailable [facility] Unavailable [phone] Encounter Details Date Type Department Care Team Description 08/31/2013 Hospital Encounter [facility] Matias Lucia MD Hospital Patient Care [address] [facility] [address] [place], [place] [id number] Social History Tobacco Use Types Packs/Day Years [...] Sign Reading Time Taken Comments Blood Pressure 132/65 08/31/2013 9:11 AM CDT Pulse 91 08/31/2013 9:11 AM CDT Temperature 36.3 ??C (97.4 ??F) 08/31/2013 9:11 AM CDT Respiratory Rate 16 08/31/2013 9:11 AM CDT Oxygen Saturation 95% 08/31/2013 9:11 AM CDT Inhaled Oxygen Concentration - - Weight 72.6 kg (160 lb) 08/27/2013 10:59 AM CDT Height 157.5 cm (5' 2) 08/27/2013 10:59 AM CDT Body Mass Index 29.26 08/27/2013 10:59 AM CDT documented in this encounter Medications at Time of Discharge Medication Sig Dispensed Refills Start Date End Date Cholecalciferol, Vitamin Take 1 Tab by mouth 0 09/07/2013 D3, (VITAMIN D3) 5,000 Once Daily. unit Oral Tab cyclobenzaprine Take 10 mg by mouth 0 08/09/2013 04/16/2016 (FLEXERIL) 10 mg Oral Tab three times a day as needed. cyclobenzaprine Take 1 Tab by mouth 90 Tab 1 08/09/2013 09/08/2013 (FLEXERIL) 10 mg Oral Tab three times a day. lidocaine 5% (LIDODERM) 5 1 Patch by 30 Patch 3 08/09/2013 09/07/2013 %(700 mg/patch) Top PtMd Transdermal route DAILY - APPLY PATCH. oxyCODone, immediate Take 1-2 Caps by 90 Cap 0 4 09/07/2013 release, (OXY IR) 5 mg mouth three times a Oral Cap day. oxyCODONE, immediate Take by mouth every 70 Tab 0 201309/07/2013 release, (ROXICODONE) 5 4 (four) hours as mg Oral TabIndications: needed. Disc herniation senna (SENOKOT) 8.6 mg Take 1-2 Tabs by 90 Tab 0 014 09/07/2013 Oral Tab mouth Twice a Day. documented as of this encounter Nursing Notes Sharon Willis RN - 08/31/2013 9:54 AM CDT Jennifer Kirk 1940 [id number] P: Discharge A: Discharged ambulatory to home at 0955 escorted by volunteer and spouse I: Discharge information and arrangements included: review of written discharge instructions R:Patient, spouse expressed understanding of information.. Sharon Willis RN - 08/31/2013 9:48 AM CDT Patient ate 1/2 cracker this morning at 0730. MDA notified and delayed surgery until 1330. Dr. Lucia notified and is unable to do the surgery at that time so surgery is cancelled for today. Patient told that Dr. Lucia will probably be able to do the surgery on or Friday this week but she isto call the office to schedule the procedure. Patient told to not eat or drink anything after midnight the day of surgery and she verbalizes understanding of this. documented in this encounter Plan of Treatment Not on filedocumented as of this encounter Procedures Procedure Name Priority Date/Time Associated Diagnosis Comme nts ELECTROCARDIOGRAM Routine 08/31/2013 9:24 AM Resu lts for this CDT procedure are i n the results section. documented in this encounter Results Electrocardiogram (08/31/2013 9:24 AM CDT) athologist Signature EKG [facility] Comment: ?[facility] ? Test Date: ?2013-08-31 Pat Name: ? JENNIFER KIRK ?Department: ?Room: ? [facility] ADMISSION POOL ROOM Gender: ? F ?Mechanic Senior: ?? [id number] : ?1940 ? Requested By: Order Number: ?Reading : ?? Maricarmen Simon MD ? Measurements Intervals ?[place] ? Rate: ? 73 ? P: ?66 CO: ? 169 ?QRS: ?-1 QRSD: ? 96 ? T: ?43 QT: ? 380 ? QTc: ?405 ? Interpretive Statements SINUS RHYTHM INCOMPLETE RIGHT BUNDLE BRANCH BLOCK [90 + MS QRS DURATION, TERMINAL R IN V1/V2, 40+ MS S IN I/AVL/V4/V5/V6] Electronically Signed On 2013-08-31 20:4 2:53 CDT by Maricarmen Simon MD Specimen (Source) Anatomical Collection Method Collection Time Re ceived Time Location / / Volume Laterality 08/31/2013 9:24 AM CDT Narrative This result has an attachment that is no t available. Jac Cárdenas MD EKG ORDERABLE Performing Organization Address City/State/ZIP Code Phon e Number [facility] [address] [place] [address] documented in this encounter Visit Diagnoses Not on filedocumented in this encounter Active and Recently Administered Medications Care Teams Mechanical Manager Relationship Specialty Start Date End Date Francesco Bonner MD PCP - General 08/26/1310/26 [facility] PCP - Primary Care Clinic 08/30/13 Francesco Bonner MD 08/11/13 documented as of this encounter
--- OUTSIDE RECORDS SUMMARY | 2022-02-13 11:41 | XMS_ITS | Encounter Summary ---
:1940 Author Organization [facility] Address [address] [place] [address] Care Team Providers Name Role Phone Francesco Bonner MD Unavailable Unavailable Anup Evans MD Primary Care Provider [facility] Unavailable [phone] Encounter Details Date Type Department Care Team Description 03/13/2016 Order-Scan [facility] - Reported, Patient [address] [address] Social History Tobacco Use Types Packs/Day [...] Priority Date/Time Associated Diagnosis Comme nts SCANNED RADIOLOGY Routine 03/11/2016 documented in this encounter Results SCANNED RADIOLOGY (03/11/2016) Anatomical Region Laterality Modality Other Narrative This result has an attachment that is no t available. Patient Reported XRAY ORDERABLE documented in this encounter Visit Diagnoses Not on filedocumented in this encounter Care Teams Director Fixed Income Relationship Specialty Start Date End Date Anup Evans MD PCP - General Internal Medicine 02/23/[address] [place] [address] Dr Pérez [facility] [place] [address] Chauncey Bill PCP - Primary Care Clinic [address] PÉREZ [facility] [place] [address] Francesco Bonner MD 08/11/13 documented as of this encounter
--- OUTSIDE RECORDS SUMMARY | 2022-02-13 11:41 | XMS_ITS | Encounter Summary ---
:1940 Author Organization [facility] Address [address] [place] [address] Care Team Providers Name Role Phone Francesco Bonner MD Unavailable Unavailable Francesco Bonner MD Primary Care Provider [facility] Unavailable [phone] Reason for Referral (Routine) - Closed Specialty Diagnoses / Procedures Referred By Contact Refer red To Contact Diagnoses Low blood pressure reading Mouna Carlson MD Procedures UE ARTERIAL ULTRASOUND BILAT Referral ID Status Reason Start Date Expiration Date Visits Requ ested Visits Authorized [id number] Closed 09/13/2013 03/09/2014 1 1 Reason for Visit (Routine) - Closed Specialty Diagnoses / Procedures Referred By Contact Refer red To Contact Diagnoses Low blood pressure reading Mouna Carlson MD Procedures UE ARTERIAL ULTRASOUND BILAT Referral ID Status Reason Start Date Expiration Date Visits Requ ested Visits Authorized [id number] Closed 09/13/2013 03/09/2014 1 1 Encounter Details Date Type Department Care Team Description 09/17/2013 Hospital Encounter [facility] E[facility] - [place] [address] [place], [place] [address] Social History Tobacco Use Types Packs/Day Years [...] for Pain. documented as of this encounter Plan of Treatment Not on filedocumented as of this encounter Procedures Procedure Name Priority Date/Time Associated Diagnosis Comme nts HVC VASC UE Routine 09/17/2013 3:45 PM Low blood pressure Res ults for this ARTERIAL US BILAT CDT reading procedure are in the results section. documented in this encounter Results UE ARTERIAL ULTRASOUND BILAT (09/17/2013 3:45 PM CDT) Specimen (Source) Anatomical Collection Method Collection Time Re ceived Time Location / / Volume Laterality 09/17/2013 2:53 PM CDT Impressions TEST - 09/17/2013 5:29 PM CDT Narrative TEST - 09/17/2013 5:29 PM CDT [facility] [place] ? [address] [place] [address] ? UPPER ARTERIAL ULTRASOUND REPORT ? Patient Name: ?? ALEX KIRK Date of Exam: 09/17/2013 ? Medical Rec #: ??[id number] ? Inpt/Outpt: ?? Outpatient ? Account #: ?Priority: ? Accession # ? [id number] ? Date of : ??1940 ?H eight: [...] ?arm). Intermittent right arm pain. ? Diagnosis: Epoxy Coatings Installer: ?Larry Rascon RVT ? Primary Physician: ?Francesco [...] Procedure Note Cecy Toussaint MD - 09/17/2013 [facility] [place] [address] [place] [address] UPPER ARTERIAL ULTRASOUND REPORT Patient Name: ALEX KIRK Date of Exam: 09/17/2013 Medical Rec #: [id number] Inpt/Outpt: Outpa tient Account #: Priority: Date [...] left arm). Intermittent right arm pain. Diagnosis: Epoxy Coatings Installer: Larry MELO Primary Physician: Francesco Bonner MD Referring Physician: [id number]OU[address] WETZEL NMI Physician: Interpreting Physician: Afia I M P R E S S [...] Visit Diagnoses Diagnosis Low blood pressure reading Nonspecific low blood pressure reading documented in this encounter Care Teams Welder Tech Relationship Specialty Start Date End Date Francesco Bonner MD PCP - General 08/26/1310/26 [facility] PCP - Primary Care Clinic 08/30/13 Francesco Bonner MD 08/11/13 documented as of this encounter
--- OUTSIDE RECORDS SUMMARY | 2022-02-13 11:41 | XMS_ITS | Encounter Summary ---
:1940 Author Organization [facility] Address [address] [place] [address] Care Team Providers Name Role Phone Francesco Bonner MD Unavailable Unavailable Riley Mclain MD Primary Care Provider Unavailable Department, [facility] Emergency Unavailable Reason for Visit Reason Comments Wrist injury Encounter Details Date Type Department Care Team Description 12/14/2013 Emergency [facility] Michelle Trevino MD Emergency Care [facility] [address] [facility] [address] [place], [place] [address] [address] [place] [address] [phone] (Wo rk) Social History Tobacco Use Types Packs/Day Years Used Date Smoking Tobacco: Some Days Cigarettes 1 Smokeless Tobacco: Never Alcohol Use [...] on file documented as of this encounter Discharge Instructions AttachmentsThe following attachments cannot be sent through Care Everywhere. CONTUSION ([place]TH KOREAN)documented in this encounter Medications at Time of [...] Tab Once Daily. NO MEDICATIONS 0 04/16/2016 oxyCODONE-acetaminophen Take 1-2 Tabs by 0 04/16/2016 (PERCOCET) 5-325 mg Oral mouth every four (4) Tab to six (6) hours as needed for Pain. documented as of this encounter ED Notes Amy Mcarthur RN - 12/14/2013 7:49 PM CDT S: Discharge B: Pt received written and verbal discharge instructions. A: Pt verbalizes understanding of discharge instructions. R: Pt able to ambulate out of department in stable condition. Michelle Trevino MD - 12/14/2013 7:03 PM CDT Images from the original note were not included. History of Present Illness HPI Comments: Jennifer Cole is a 73 y.o. female who presents with left hand and wrist pain afterfall yesterday. Simple trip and fall onto pavement/sidewalk curb. Hit her nose, but no other head injury and no LOC. Pain in the palmar surface of the left pinky finger, volar wrist, and dorsal left hand over the 4th and 5th MCPs. Bruising in same areas of pain. No numbness or tingling. Can flex/extend the wrist and fingers, but causes increased pain. No pain to the elbow or shoulder. Has not tried any medications today, but didtake ibuprofen last night and used ice today. Not on any blood thinners, no other significant injuries. Patient is a 73 y.o. female presenting with Wrist/Forearm Injury. Wrist pain Review of Systems Review of Systems Constitutional: Negative. HENT: Negative. Respiratory: Negative. Cardiovascular: Negative. Musculoskeletal: Pain and bruising in the left hand and wrist. Patient is right hand dominant. Neurological: Negative. All other systems reviewed and are negative. Past Medical History History reviewed. No pertinent past medical history. Past Surgical History Past Surgical History Procedure Laterality Date ??? Hx cholecystectomy ??? Breast surgery procedure unli* cyst taken off Rt side ??? Hx back surgery 09/02/2013 Social History History Social History ??? Marital Status: Single Spouse Name: N/A Number of Children: N/A ??? Years of Education: N/A Social History Main Topics ??? Smoking status: Current Some Day Smoker -- 1.00 packs/day Types: Cigarettes ??? Smokeless tobacco: Never Used ??? Alcohol Use: No Comment: occasional ??? Drug Use: No ??? Sexually Active: None Other Topics Concern ??? None Social History Narrative Merged History Encounter Family History Family History Problem Relation Age of Onset ??? Non-contruibutory Prior To Arrival Medications Patient's Medications New Prescriptions No medications on file Previous Medications ACYCLOVIR 5% (ZOVIRAX) 5 % TOP OINT Apply 1 g to skin five times a day. ALBUTEROL HFA 90MCG/PUFF (PROVENTIL;VENTOLIN HFA) 90 MCG/ACTUATION INHL 2 Puffs by Inhalation routeevery 4 (four) hours as needed for Shortness of breath. use a holding chamber/spacer CYCLOBENZAPRINE (FLEXERIL) 10 MG ORAL TAB Take 10 mg by mouth three times a day as needed. LEVOFLOXACIN (LEVAQUIN) 750 MG ORAL TAB Take 1 Tab by mouth Once Daily. NO MEDICATIONS OXYCODONE-ACETAMINOPHEN (PERCOCET) 5-325 MG ORAL TAB Take 1-2 Tabs by mouth every four (4) to six (6) hours as needed for Pain. Modified Medications No medications on file Discontinued Medications No medications on file Allergies No Known Allergies Physical Exam Physical Exam Nursing note and vitals reviewed. Constitutional: She is oriented to person, place, and time. She appears well- nourished. No distress. HENT: Head: Normocephalic and atraumatic. Eyes: Pupils are equal, round, and reactive to light. Pulmonary/Chest: Effort normal. Musculoskeletal: Left hand: She exhibits tenderness and swelling. She exhibits normal capillary refill, no deformityand no laceration. Normal sensation noted. She exhibits no finger abduction, no thumb/finger opposition and no wrist extension trouble. Hands: Normal alignment of left hand fingers when in a fist Neurological: She is alert and oriented to person, place, and time. Skin: Skin is warm and dry. Temperature: 98 ??F (36.7 ??C) Pulse: 72 Respirations: 16 BP: 103/86 mmHg SpO2: 99 % Procedures MDM Reviewed: previous chart, vitals and nursing note Interpretation: x-ray Jennifer Cole is a 73 y.o. female who presents with contusions to the left hand and wrist afterfall yesterday. No CMS dysfunction. Xray left hand and wrist: no fracture or dislocation Diagnosis: Wrist and hand contusions Disposition: Home Rx: none Michelle Trevino MD Lashon Dubois RN - 12/14/2013 6:48 PM CDT S: L wrist injury B: Tripped and fell on a curb. A: Bruising and swelling to wrist. R: Provider to see. documented in this encounter Plan of Treatment Not on filedocumented as of this encounter Procedures Procedure Name Priority Date/Time Associated Diagnosis Comme nts XR WRIST LT 3 VIEW STAT 12/14/2013 7:03 PM Res ults for this CDT procedure are i n the results section. XR HAND LT 3 VIEW STAT 12/14/2013 7:03 PM Resu lts for this CDT procedure are i n the results section. documented in this encounter Results XRAY WRIST LEFT (12/14/2013 7:03 PM CDT) Anatomical Region Laterality Modality Extremity Computed Radiography Specimen (Source) Anatomical Collection Method Collection Time Re ceived Time Location / / Volume Laterality 12/14/2013 7:03 PM CDT Impressions 12/14/2013 7:04 PM CDT IMPRESSION: No fracture. Narrative 12/14/2013 7:04 PM CDT EXAM: X-RAY WRIST DATE: 12/14/2013 6:56 PM COMPARISON: None CLINICAL DATA: Trauma. Wrist pain. TECHNIQUE: Frontal, oblique, and lateral views of the left wrist were obtained. FINDINGS: No fracture or dislocation. Degenerative changes are noted at the base of the thumb. Procedure Note Gordy Payne MD - 12/14/2013Form atting of this note might be different from the original. EXAM: X-RAY WRIST DATE: 12/14/2013 6:56 PM COMPARISON: None CLINICAL DATA: Trauma. Wrist pain. TECHNIQUE: Frontal, oblique, and lateral views of the left wrist were obtained. FINDINGS: No fracture or dislocation. Degenerative changes are noted at the base of the thumb. IMPRESSION: No fracture. Michelle Trevino MD XRAY ORDERABLE XRAY HAND LEFT (12/14/2013 7:03 PM CDT) Anatomical Region Laterality Modality Extremity Computed Radiography Specimen (Source) Anatomical Collection Method Collection Time Re ceived Time Location / / Volume Laterality 12/14/2013 7:04 PM CDT Impressions 12/14/2013 7:05 PM CDT IMPRESSION: No fracture. Narrative 12/14/2013 7:05 PM CDT EXAM: X-RAY HAND DATE: 12/14/2013 6:56 PM COMPARISON: None CLINICAL DATA: Trauma. Hand pain. TECHNIQUE: Frontal, oblique, and lateral views of the left hand were obtained. FINDINGS: No fracture or dislocation. There is a l east moderate degenerative change at the base of the thumb. Mild multifocal degenerative change elsewhere. No bony erosions or periosteal reaction. Diffuse osteopenia. Procedure Note Gordy Payne MD - 12/14/2013Form atting of this note might be different from the original. EXAM: X-RAY HAND DATE: 12/14/2013 6:56 PM COMPARISON: None CLINICAL DATA: Trauma. Hand pain. TECHNIQUE: Frontal, oblique, and lateral views of the left hand were obtained. FINDINGS: No fracture or dislocation. There is a l east moderate degenerative change at the base of the thumb. Mild multifocal degenerative change elsewhere. No bony erosions or periosteal reaction. Diffuse osteopenia. IMPRESSION: No fracture. Michelle Trevino MD XRAY ORDERABLE documented in this encounter Visit Diagnoses Diagnosis Contusion of wrist - Primary Contusion of hand, left Contusion of hand(s) documented in this encounter Care Teams Color Coater Relationship Specialty Start Date End Date Riley Mclain MD PCP - General 10/27/13 [facility] PCP - Primary Care Clinic 10/27/13 05/06/14 Emergency [address] [place] [address] Francesco Bonner MD 08/11/13 documented as of this encounter
--- OUTSIDE RECORDS SUMMARY | 2022-02-13 11:41 | XMS_ITS | Encounter Summary ---
:1940 Author Organization [facility] Address [address] [place] [address] Care Team Providers Name Role Phone Francesco Bonner MD Unavailable Unavailable Francesco Bonner MD Primary Care Provider [facility] Unavailable [phone] Reason for Visit Reason Comments Lip sores had back surgery last week - has had a dry mouth since - noticed sores starting friday Encounter Details Date Type Department Care Team Description 09/07/2013 Urgent Care Visit [facility] Anup Bahena , Fever blister Urgent Care - Rebeca JEROME (Primary Dx) [address] [place] [address] Social History Tobacco Use Types Packs/Day [...] Sign Reading Time Taken Comments Blood Pressure 110/80 09/07/2013 7:15 PM CDT Pulse 97 09/07/2013 7:15 PM CDT Temperature 36.8 ??C (98.3 ??F) 09/07/2013 7:15 PM CDT Respiratory Rate - - Oxygen Saturation 98% 09/07/2013 7:15 PM CDT Inhaled Oxygen Concentration - - Weight 73.2 kg (161 lb 6.4 oz) 09/07/2013 7:15 PM CDT Height 157.5 cm (5' 2) 09/07/2013 7:15 PM CDT Body Mass Index 29.52 09/07/2013 7:15 PM CDT documented in this encounter Progress Notes Anup Bahena MD - 09/07/2013 7:18 PM CDT PROBLEM: Fever blisters SUBJECTIVE: The pt presents accompanied by her daughter in law with complaint of fever blisters on lower lip. First noted 3 days ago on left lower lip but past 24 hours spreading across lower lip. No intraoral lesions. No malaise. S/p Lumbar surgery last week. No recent steriods. Medications: Current Outpatient Prescriptions Medication Sig Dispense Refill ??? oxyCODONE-acetaminophen (PERCOCET) 5-325 mg Oral Tab Take 1-2 Tabs by mouth every four (4) to six (6) hours as needed for Pain. ??? valACYclovir (VALTREX) 1 g Oral Tab Take by mouth as directed. Take 1 tab immediately then take 2 tabs 12 hours later 3 Tab 0 ??? cyclobenzaprine (FLEXERIL) 10 mg Oral Tab Take 1 Tab by mouth three times a day. 90 Tab 1 No current facility-administered medications for this visit. Allergies: Review of patient's allergies indicates no known allergies. Review of Systems: Above. No fever. No rash elsewhere. OBJECTIVE: BP 110/80 Pulse 97 Temp(Src) 98.3 ??F (36.8 ??C) (Oral) Ht 1.575 m (5' 2) Wt 73.211 kg (161lb 6.4 oz) BMI 29.51 kg/m2 SpO2 98% Pleasant, cooperative, no acute distress. Clincal Herpes labialis with some dried and some new smallblisters with mild swelling at lower lip vermilion border. No evident secondary bacterial infection.Intraoral exam unremarkable. No cervical adenopathy. ASSESSMENT: Clinical herpes labialis PLAN: Discussed impressions. Pt had taken an old left over valtrex 2 hours ASPHALT MIXER from old shingles (?dose). Thus we will treat with additional 1000mg valtrex bradley and in 12 hours 2g more to complete course. She will f/u with pcp in 4-6 days to consider further eval or suppressive dose if ongoing problem. Contagion reviewed. Pt was advised to seek urgent reevaluation sooner in interim if any new symptoms or worsening. documented in this encounter Plan of Treatment Not on filedocumented as of this encounter Visit Diagnoses Diagnosis Fever blister - Primary Herpes simplex without mention of compli cation documented in this encounter Care Teams Milk Powder Grinder Relationship Specialty Start Date End Date Francesco Bonner MD [facility] - [facility] 08/30/13 Francesco Bonner MD 08/11/13 documented as of this encounter
--- OUTSIDE RECORDS SUMMARY | 2022-02-13 11:41 | XMS_ITS | Encounter Summary ---
:1940 Author Organization [facility] Address [address] [place] [id number] Care Team Providers Name Role Phone Francesco Bonner MD Unavailable Unavailable Doctor, No Primary Care Provider Unavailable Clinic, No Primary Unavailable Unavailable Reason for Visit Reason Comments URI Symptoms Encounter Details Date Type Department Care Team Description 09/06/2014 Emergency [facility] [address] [place], [place] [address] Social History Tobacco Use Types [...] documented as of this encounter ED Notes Milton España RN - 09/06/2014 6:32 PM CDT S: congestion B: My allergies are driving my nuts. pt states she is cognested adn hoarse with a lot of sneezing,taking flonase and affrin. documented in this encounter Plan of Treatment Not on filedocumented as of this encounter Visit Diagnoses Not on filedocumented in this encounter Care Teams Hand Tool Filer Relationship Specialty Start Date End Date Doctor, No PCP - General Radiology 05/07/14 12/25/15 No ad Clinic, No Primary PCP - Primary Care Clinic 05/07/14 02/22/16 Francesco Bonner MD 08/11/13 documented as of this encounter
--- OUTSIDE RECORDS SUMMARY | 2022-02-13 11:41 | XMS_ITS | Encounter Summary ---
:[address] [facility] Address [address] [place] [address] Care Team Providers Name Role Phone Francesco Bonner MD Unavailable Unavailable Anup Evans MD Primary Care Provider [facility] Unavailable [phone] Encounter Details Date Type Department Care Team Description 04/17/2016 Order-Scan [facility] - Reported, Patient [address] [address] Social History Tobacco Use Types [...] Priority Date/Time Associated Diagnosis Comme nts SCANNED CARDIO Routine 04/16/2016 SCANNED CARDIO Routine 08/31/2013 documented in this encounter Results SCANNED CARDIO (04/16/2016) Narrative This result has an attachment that is no t available. Patient Reported CARDIO ORDERABLE SCANNED CARDIO (08/31/2013) Narrative This result has an attachment that is no t available. Patient Reported CARDIO ORDERABLE documented in this encounter Visit Diagnoses Not on filedocumented in this encounter Care Teams X Ray Equipment Tester Relationship Specialty Start Date End Date Anup Evans MD PCP - General Internal Medicine 02/23/[address] [place] [address] Dr Pérez [facility] Internal Medicine [place] [address] [address] [facility] PCP - Primary Care Clinic Clinic-[address]REZ [facility] [place] [address] Francesco Bonner MD 08/11/13 documented as of this encounter
--- OUTSIDE RECORDS SUMMARY | 2022-02-13 11:41 | XMS_ITS | Encounter Summary ---
:1940 Author Organization [facility] Address [address] [place] [id number] Care Team Providers Name Role Phone Francesco Bonner MD Unavailable Unavailable Anup Evans MD Primary Care Provider [facility] Unavailable [phone] Reason for Referral Consultation (Routine) - Closed Specialty Diagnoses / Procedures Referred By Contact Refer red To Contact Diagnoses Chronic left-sided low back pain without sciatica Anup Evans MD [facility] [address] Retana [facility] [address] [place] [address] [place] [address] [place], [place] [address] Referral ID Status Reason Start Date Expiration Date Visits V isits Requested Authorized [id number] Closed Specialty 02/23/2016 08/21/2016 1 1 Services Required Consultation (Routine) - Closed Specialty Diagnoses / Procedures Referred By Contact Refer red To Contact Imaging Diagnoses Chronic left-sided low back pain without sciatica Anup Evans MD [address] [place] [address] Dr Pérez [facility] Internal Medicine [place], [place] [address] Referral ID Status Reason Start Date Expiration Date Visits Requ ested Visits Authorized [id number] Closed 02/23/2016 08/21/2016 1 1 Comments Open sided MRI MRI lumbar spine: Evaluate low back pain Reason for Visit Reason Comments Establish care not fasting Back pain Encounter Details Date Type Department Care Team Description 02/23/2016 Office Visit [facility] Anup Evans MD Medicare annual wellness visit, initial (Primary Dx); Clinic - [address] Chronic left-sided low back pain without sciatica [address] [place] [address] [address] [facility] [place] [address] [place] [phone] (Wo rk) Social History Tobacco Use Types [...] Sign Reading Time Taken Comments Blood Pressure - - Pulse - - Temperature - - Respiratory Rate - - Oxygen Saturation - - Inhaled Oxygen Concentration - - Weight 69.3 kg (152 lb 12.8 oz) 02/23/2016 11:30 AM CDT Height 160.3 cm (5' 3.1) 02/23/2016 11:30 AM CDT Body Mass Index 26.98 02/23/2016 11:30 AM CDT documented in this encounter Progress Notes Anup Evans MD - 03/12/2016 3:53 PM CDT I spoke with the patient regarding her open sided MRI. This was completed on 1009. This was compared with a prior study August 08, 2013. 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 There is mild degenerative anterolisthesis of L5 on S1 from prior study. There is mild subarticular narrowing at L4-5 and L5-S1 involving the traversing nerve roots slightly progressed since prior study. She has been given information to establish with [facility]. She had not arranged a referral at that time. She again needs contact information. Patient care: Contact the patient with information for her to establish with [facility]. Have a copy of the open sided MRI report forwarded. Anup Evans MD - 02/23/2016 12:59 PM CDT This office note has been dictated. Anup Evans MD - 02/23/2016 12:54 PM CDT CC: SUBJECTIVE: The patient is a pleasant 75-year-old female seen with [facility] on February 23, 2016. This is the first time being seen in clinic. She generally does not go into to see providers. She has a past medical history significant for back surgery in 2013. This occurred on September 02. She had an L5-S1 right hemilaminectomy and diskectomy. She has had a right breast cyst resection in 1995 and a cholecystectomy in 1970. She smokes approximately a pack of cigarettes daily. She ishere today concerned about back pain. She is due for a Medicare wellness evaluation which was completed today. We reviewed her medical, family and social histories which were updated in the electronic medical record. She has not following regularly without any other outside providers. Potential risks factors for depression were reviewed ut ilizing the PHQ-2, she scored zero. Her functional ability and level of safety was reviewed. There were no concerns for hearing impairment, activities of daily living, fall risk or home safety. There were no concerns for cognitive impairment identified during the encounter. Her son accompanied her here to the visit today. He had no concerns. She is and lives at home with her . Her vital signs including, height, weight, blood pressure and BMI are obtained and noted in the electronic record. Personalized health advice, list of risk factors and a written screening schedules were provided. The patient declines all vaccinations including flu vaccine, Zostavax, tetanus and pneumococcal vaccines. She declines DEXA scan and she also declines colonoscopy. I did review the rationale for vaccines and health care maintenance with screening. However, she is not interested in doing any of these things at this time. She also was also not interested in pursuing tobacco cessation. She has been experiencing increasing back pain over the past year. She feels it in the low lumbar region, left greater than right, without radiation at the extremities. There is no focal weakness or paresthesias. No bowel or bladder dysfunction. She describes the pain as an ache. She has been using some dktp-zci-sxkxnac analgesics. PHYSICAL EXAMINATION: VITAL SIGNS: As listed. GENERAL: She is pleasant and interactive. Speech is fluent. HEART: Regular without murmurs. LUNGS: Clear. There is normal respiratory effort. ABDOMEN: Benign. Positive bowel sounds. EXTREMITIES: Without clubbing or cyanosis. There is no peripheral edema. Her strength is 5/5. Sensation is intact. NEUROLOGIC: Patellar reflexes are 2+ and symmetric. There is absence of the right ankle jerk reflex.Left ankle jerk reflex is intact. Her gait was intact. There is no significant discomfort with palpation in the paravertebral musculature in the lumbar region. SKIN: Visualized skin was clear without rash. IMPRESSION: 1. Low back pain, left greater than right, chronic, without sciatica. 2. Tobacco use disorder. PLAN: I spoke with the patient about further evaluation. She is interested in proceeding. I am goingto refer her for an MRI. This will be an open-sided MRI. She also notes that she will need some sedation. I provided a prescription for some lorazepam and I talked to her about potential risks and sideeffects of this. She will have a courtesy driver when she goes in for her imaging. In addition, I did providea referral to [facility]. Other conservative treatment measures were discussed. She will letme know if she is having any ongoing concerns. Anup Evans MD / Dictation ID: [id number] documented in this encounter Plan of Treatment Scheduled Referrals Name Type Priority Associated Diagnoses Order S chedule REFERRAL IMAGING - Referral Routine Chronic Left-Sided Low Ordered: 02/23/2016 [facility]IDE [facility] Back Pain Without Sciatica REFERRAL ORTHOPEDICS: Referral Routine Chronic Left-Sided Low Ordered: 02/23/2016 [facility] Back Pain Without Sciatica documented as of this encounter Visit Diagnoses Diagnosis Medicare annual wellness visit, initial - Primary Routine general medical examination at a health care facility Chronic left-sided low back pain without sciatica documented in this encounter Care Teams Operational Test Mechanic Relationship Specialty Start Date End Date Anup Evans MD PCP - General Internal Medicine 02/23/[address] [place] [address] Dr P[facility]rez [facility] [place] [address] Chauncey Bill [facility] PCP - Primary Care Clinic Clinic[address] P[facility]REZ [facility] [place] [address] Francesco Bonner MD 08/11/13 documented as of this encounter
--- OUTSIDE RECORDS SUMMARY | 2022-02-13 11:41 | XMS_ITS | Encounter Summary ---
:1940 Author Organization [facility] Address [address] [place] [address] Care Team Providers Name Role Phone Francesco Bonner MD Unavailable Unavailable Anup Evans MD Primary Care Provider [facility] Unavailable [phone] Reason for Visit Inpatient Admission Specialty Diagnoses / Procedures Referred By Contact Refer red To Contact Diagnoses post op L-5 S-1 laminectomy/ discectomy infection Referral ID Status Reason Start Date Expiration Date Visits Requ ested Visits Authorized [id number] 1 1 Encounter Details Date Type Department Care Team Description 05/09/2016 Surgery [facility] Jasbir Lucia MD LUMBAR INCISION Hospital Operating R oom [address] C EXPLORATION AND WASHOUT [address] [facility] n [facility] [address] [place], [place] [address] [place], [place] [phone] [id number] Surgery Details Date/Time Status Location OR Service Patient Class Case Case Trauma Class Type Case? 05/09/16 9:30 Posted NMR ORS 17 Neurosurgery Inpatient AM Panel 1 Procedure LRB Anes Op Region Wound Class Commen ts LUMBAR INCISION EXPLORATION AND N/A General Spine, Lumbar C ontaminated (III) WASHOUT Surgeon Surgeon Role Service Panel Danii Lucia MD Primary Neurosurgery 1 Deepali Kline, PAJessicaC Physician Jd Edwards Consultant Pulmonary Medicine 1 documented in this encounter Social History Tobacco Use Types Packs/Day Years [...] Sign Reading Time Taken Comments Blood Pressure 169/70 05/09/2016 9:39 AM WHISKEY FILTERER Pulse 72 05/09/2016 9:39 AM WHISKEY FILTERER Temperature 36.7 ??C (98.1 ??F) 05/09/2016 9:39 AM WHISKEY FILTERER Respiratory Rate 16 05/09/2016 9:39 AM WHISKEY FILTERER Oxygen Saturation 95% 05/09/2016 9:39 AM WHISKEY FILTERER Inhaled Oxygen Concentration - - Weight 69.4 kg (153 lb) 05/01/2016 4:10 PM WHISKEY FILTERER Height 157.5 cm (5' 2) 05/01/2016 4:10 PM WHISKEY FILTERER Body Mass Index 27.98 05/01/2016 4:10 PM WHISKEY FILTERER documented in this encounter Discharge Summaries Janene Urrutia MD - 05/11/2016 10:37 AM CST Discharge Summary Attending Physician: Nitin-Hospitalist Admit Date: 05/01/2016 Jennifer Kirk 76 y.o. female She discharged to home [...] the back, where gross pus was seen. [place] to have deeper infection, osteomomyelitis of the [...] FACE to FACE Physician Encounter for Jennifer Kirk I certify that this patient is under my care and that I, or a nurse practioner or physician's printing bindery assistant working with me, had a odka-zp-qxfw encounter that meets the physician gbwu-av-jwdr encounter requirements. The encounter with the patient was in whole or in part for the following medical conditions which is the primary reason for home health care: after care following surgery and infectious process. I certify that, based on my findings, the following services are medically necessary home health services: [facility], Physical Therapy and Occupational Therapy. My clinical findings support the need for the above services because Jennifer Kirk needs assessment of medication response and effectiveness , home exercise program for function and safety and infusion therapy. This patient is homebound because she has difficulty with ambulation/transfers related to after care following surgery and infectious process. Requires use of walker and another person . Is patient homebound? Yes Services needed: [facility] Services needed: Physical Therapy Services needed: Occupational Therapy Appointment urgency: 1-2 Days Reason for visit / clinical data: back surgery with infection Specify home care services? Skilled Home Care When was the Wpzs-tr-Rkkq encounter? 05/11/2016 Name of home care agency Home Health Discharge Disposition? Home Health Care Agency Expected Discharge Date? 05/11/2016 Follow Up Referral Priority: Routine Referred to Provider: DANII LUCIA Laurel A., MD [address] [facility].[address] [facility] [address] Call in 2 week(s) [place] [address] [address] , More than 30 min taken in discharging and coordinating the care for this patient. Janene Urrutia MD KEY FILTERER documented in this encounter Medications at Time [...] Child RN - 05/11/2016 10:37 AM CST 9448 - 1407 Code Status:Full Fall Risk:Yes Identifiers in place:yes [...] voiding per toilet Anticoagulation: heparin Psychosocial: Oriented Jenniferkenney Kirk 1940 [phone] P: Discharge A: Discharged via wheelchair to home with Home Health Care at 1035 escorted by nurse I: Discharge information and arrangements included: review of written discharge instructions, reviewof purpose and side effects of new medication, prescriptions sent with patient, belongings list completed. R:Patient expressed understanding of information. Ana Child RN KEY FILTERER Kwaku Naranjo PA-C - 05/11/2016 8:56 AM CST NSG NOTE: S: Stable overnight. No acute changes. O: Vitals: 05/10/16 1923 05/10/16 2323 05/11/16 0346 05/11/16 0723 BP: 111/65 (!) 148/64 (!) 146/70 Pulse: 84 83 74 Resp: 16 16 16 Temp: 99 ??F (37.2 ??C) 100 ??F [...] in. Kwaku Naranjo PA-C 8:57 AM Pager [phone] KEY FILTERER Viktoria Chino RN - 05/11/2016 7:22 AM CST SBAR Staph infected lumbar incision. I & D, POD #2. Dressing to lumbar spine c/d/i. Pt able to move all her extremities. Up to bathroom with walker. Elevated temp at start of shift. Tylenol 650mg po given. Pt on Ancef as ordered. Single lumen PICC placed for senior care abx. Pt to d/c home with PICC.Tempdown [...] (153 lb) SpO2 96% BMI 27.98 kg/m2 Urrutia MD - 05/10/2016 11:33 PM CST [facility] MEDICINE PROGRESS NOTE Chart reviewed SUBJECTIVE: Pt [...] the back, where gross pus was seen. [place] to have deeper infection, osteomomyelitis of the [...] Discussed with patient, nurse. Janene Urrutia MD KEY FILTERER Rolando Fajardo RN - 05/10/2016 11:11 PM [...] every 8 hrs ,good blood return . clinical admissions manager made arrangement with home infusion . Blood pressure 111/65, pulse 84, temperature 99 ??F (37.2 ??C), resp. rate 16, height 5' 2 (1.575 m), weight 69.4 kg (153 lb), SpO2 91 %. PLAN -Discharge home with home care/antibiotic. KEY FILTERER Nnamdi Aguilar, PT - 05/10/2016 12:46 PM CST PT Rehabilitation Services Discharge Note Diagnosis: Patient admitted to [facility] on 05/01/2016 due to L5- S1 infection and encephalopathy s/p L5-S1 laminectomy and disectomy on 04/22 (performed at [facility]). Refer to Jaimee Assessment, Chart Review, and Past Medical History. ? Social History: Patient had discharged home with support from her son after recent back surgery, wasapparently doing well until 05/01 when she developed sharp increase in low back pain with fever as well. She lives in a private home with her , her son and jspmfhkw-ul-erv with stairs to enter with 1 rail. [...] or at discharge.. There have been 0/6 MACHINIST APPRENTICE visits. KEY FILTERER Rolando Valladares MD - 05/10/2016 12:04 PM [...] 5-15 mg 5-15 mg oral DAILY PRN aJnene Urrutia MD 15mg at 05/07/16 1043 ??? [...] mg at 05/10/16 0605 ??? influenza vaccine [id number] HIGH DOSE (65 years and older) (PF) (FLUZONE HIGH DOSE) 0.5 mL 0.5 mL IntraMUSCULAR ONCE - TOMORROW Daisy Mata, RN 0.5 mL at 05/03/16 0800 ??? lidocaine 1% (XYLOCAINE) injection 0.1-0.3 mL 0.1-0.3 mL Intradermal PRN Janene Urrutia MD 0.1 mL at 05/09/16 0849 ??? lidocaine 1% (XYLOCAINE) injection 1-3 mL 1-3 mL Intradermal PRN Rolando Vlaladares MD ??? lidocaine 1% / 8.4% sod [...] of care and counseling Rolando Valladares MD Young RN - 05/10/2016 8:50 AM CST Drain out this a.m. When RN came into the room. PA aware per family when she rounded this a.m. A Bateman - 05/10/2016 8:49 AM CST Neurosurgery Progress [...] is very sick. Son updated at bedside. TOSHA Conroy-C Pager: KEY FILTERER Maximo Montez RN - 05/10/2016 6:32 AM [...] hemovac. Tubing to back removed intact by junior underwriter. New dressing to back c/d/i. Charge nurse for 7-3 shift notified. Will notifiy at 0800. Will continue to observe. Blood pressure (!) 141/83, pulse 89, temperature 98.3 ??F (36.8 ??C), resp. rate 16, height 5' 2 (1.575 m), weight 69.4 kg (153 lb), SpO2 90 %. KEY FILTERER Verito Heart RN - 05/09/2016 3:32 PM CST SBAR END OF SHIFT SBAR Admitted Post-op L5-S1 infection. To OR today for I&D . Returned from PACU 1210 Sleepy but awakens easily . Rates pain 2/10 Dressings to back dry and intact. Hemovac patent.Some nausea on return from OR but seems to be improving KEY FILTERER Mimi Caicedo PA-C - 05/09/2016 10:19 AM [...] weeks. Have ordered PICC. Mimi Caicedo PA-C [facility] Infectious Disease KEY FILTERER Edita Camacho MD - 05/09/2016 10:03 AM CST [facility] MEDICINE PROGRESS NOTE Chart reviewed SUBJECTIVE: [...] the back, where gross pus was seen. [place] to have deeper infection, osteomomyelitis of the [...] in final cultures Discussed care plan with ID PA and neurosurgery, patient, Case management, RN in PACU. Total time 35minutes Greater than 50% of time on counseling and coordination of care. Edita Camacho MD KEY FILTERER Garima Boyd - 05/09/2016 7:34 AM CST PT Surgery today. Will reschedule tomorrow. KEY FILTERER Maximo Montez RN - 05/09/2016 6:00 AM [...] 69.4 kg (153 lb), SpO2 92 %. KEY FILTERER Sandra Quinones RN - 05/08/2016 10:23 PM CST [...] IV antibiotics upon discharge likely 1-2 days. KEY FILTERER Suzanne Prieto RN - 05/08/2016 3:31 PM [...] IV antibiotics upon discharge likely 1-2 days. KEY FILTERER TOSHA Rivera - 05/08/2016 1:40 PM CST [...] son at bedside. Deepali Kline PA-C Pager: KEY FILTERER Mimi Caicedo PA-C - 05/08/2016 1:35 PM [...] weeks. Placing PICC today. Mimi Caicedo PA-C [facility] Infectious Disease KEY FILTERER Edita Camacho MD - 05/08/2016 11:15 AM CST [facility] MEDICINE PROGRESS NOTE Chart reviewed SUBJECTIVE: [...] and coordination of care. Edita Camacho MD KEY FILTERER Roseline Truong RN - 05/08/2016 9:06 AM CST Pt. Here for aspiration And Radiologist requesting to have wound dressing over wound vac removed foraspiration floor RN called for removal and checking on whether they can do it. PA came to CT and removed dressing and told CT techs to send her back up without dressing and floor will redress. KEY FILTERER Jacqueline Green, - 05/08/2016 8:17 AM CST No neb required x 2 days. No indication noted. DC PRN neb per bronchodilator protocol. KEY FILTERER Amando Cotton RN - 05/08/2016 6:38 AM [...] IV antibiotics upon discharge likely 1-2 days. KEY FILTERER Ana Child RN - 05/07/2016 7:41 PM [...] plan, See progress notes Ana Child RN KEY FILTERER Edita Camacho MD - 05/07/2016 4:48 PM CST [facility] MEDICINE PROGRESS NOTE Chart reviewed SUBJECTIVE: [...] and coordination of care. Edita Camacho MD KEY FILTERER Mimi Caicedo PA-C - 05/07/2016 1:52 PM [...] IV ABx at discharge Mimi Caicedo PA-C [facility] Infectious Disease KEY FILTERER Yasmin Cartagena RN - 05/07/2016 11:12 AM CST 7-1100 care.Situation:76 YO female admitted on 05/01 from [facility] with possible discectomy/lami infection.Code: Full. Labs: wound [...] & a walker, steady on her feet.Discharge:pending KEY FILTERER Nnamdi Aguilar, PT - 05/07/2016 9:41 AM CST PT Rehabilitation Services Daily Note Diagnosis: Patient admitted to [facility] on 05/01/2016 due to L5- S1 infection and encephalopathy s/p L5-S1 laminectomy and disectomy on 04/22 (performed at [facility]). Refer to Jaimee Assessment, Chart Review, and Past Medical History. ? Social History: Patient had discharged home with support from her son after recent back surgery, wasapparently doing well until 05/01 when she developed sharp increase in low back pain with fever as well. She lives in a private home with her , her son and qwgtqrem-pd-emc with stairs to enter with 1 rail. [...] from continued rehab. There have been 1/6 MACHINIST APPRENTICE visits. KEY FILTERER Daphne Ferguson RN - 05/06/2016 10:53 PM CST Patient admitted with severe back pain and concern for infection at site of recent surgical incision. History of laminectomy and discectomy at [facility] on 04/22. Wound positive for MSSA.On IV [...] prn nebs.Came back from MRI at 2250. KEY FILTERER Daphne Ferguson RN - 05/06/2016 10:18 PM CST Went down to MRI at 2130.Had simethicone and IV ativan for comfort.IVF and wound vac disconnected. KEY FILTERER Soo Vela DO - 05/06/2016 8:51 PM [...] regimen Soo Vela DO Acute Care Medicine KEY FILTERER Anjelica Mann RN - 05/06/2016 8:11 PM CST Called to room Pt SOB . Sats 96% RA, RR24 and does apear SOB. Denies pain, I feel full like my stomach is pushing on my lungs pasing flatus and BM today. Respiratory therapy assessed and Dr Rabago notified. Pt refused prednisone ordered . Family wants inhouse Dr to assess. Dr Vela pagesvetlana KEY FILTERER Fortino Martines - 05/06/2016 8:00 PM CST ACM Cross Cover Called for concern of SOB (she is breathing shallow), despite resp therapy there (largely ok) and sat in mid-90s on RA. Will add ativan prn and start short lower dose prednisone (long time smoker and may have some COPD issues). Re- address in AM. Son in room concerned. Fortino Martines MD KEY FILTERER Buzz Cha RD - 05/06/2016 2:36 PM [...] needs with PO. Charisma Cha RD, LD KEY FILTERER Edita Camacho MD - 05/06/2016 2:36 PM CST [facility] MEDICINE PROGRESS NOTE Chart reviewed SUBJECTIVE: [...] care plan with ID TOSHA and neurosurgery, patient and family, RN at bedside. Total time 35 minutes Greater than 50% of time on counseling and coordination of care. Edita Camacho MD KEY FILTERER TOSHA Rivera - 05/06/2016 11:52 AM CST Neurosurgery Progress [...] Mimi Caicedo PA-C. Deepali Kline PA-C Pager: KEY FILTERER Fabiana Comer - 05/06/2016 9:54 AM CST Occupational Therapy Attempted to see pt x2 this morning for OT. First attempt pt refusing stating that she was not feeling well and did not want to get up and move. Second attempt pt with . OT will see pt at next scheduled therapy time. Fabiana Comer,OTR/L KEY FILTERER Mimi Caicedo PA-C - 05/06/2016 9:51 AM [...] Intake/Output Summary (Last 24 hours) at 05/06/16 0933 Last data filed at 05/06/16 0845 Gross [...] and MSSA pending MRI Mimi Caicedo PA-C [facility] Infectious Disease KEY FILTERER Nnamdi Aguilar, PT - 05/06/2016 9:33 AM CST PT Rehabilitation Services Daily Note Diagnosis: Patient admitted to [facility] on 05/01/2016 due to L5- S1 infection and encephalopathy s/p L5-S1 laminectomy and disectomy on 04/22 (performed at [facility]). Refer to Jaimee Assessment, Chart Review, and Past Medical History. ? Social History: Patient had discharged home with support from her son after recent back surgery, wasapparently doing well until 05/01 when she developed sharp increase in low back pain with fever as well. She lives in a private home with her , her son and eygurjah-ug-eou with stairs to enter with 1 rail. [...] from continued rehab. There have been 1/6 MACHINIST APPRENTICE visits. Patient not seen this PM as lying down, awaiting MRI. Was mobilizing well this AM with this junior underwriter, nothing has changed per patient's verbal report in regard to that. Wanted to stay in bed. KEY FILTERER Lucía Hopson RN - 05/06/2016 7:15 AM CST SBAR Patient admitted with severe back pain and concern for infection at site of recent surgical incision. History of laminectomy and discectomy at [facility] on 04/22. Wound positive for MSSA. On [...] is disabled secondary to leg amputation). Son, reofdpoo-xg-kpw and grandson also live with patient. Son would like to be updated as soon as discharge plans are in place. Shagufta Hopson RN KEY FILTERER Lynette Escobar RN - 05/05/2016 9:38 PM CST 1900 to 2300: Patient admitted with severe back pain and concern for infection at site of recent surgical incision. History of laminectomy and discectomy at [facility] on 04/22. Wound positive for MSSA. On [...] is disabled secondary to leg amputation). Son, vdvwanlr-pn-flg and grandson also live with patient. Son would like to be updated as soon as discharge plans are in place. Monitoring. Lynette Escobar RN KEY FILTERER Molly Gore RN - 05/05/2016 6:36 PM CST Patient resting in bed this evening. Appears comfortable and rates her pain 0 or 1 out of 10. Has declined any pain medication but states she would like to take a muscle relaxant before bed. Up to the bathroom with walker and standby assist to help with equipment. KEY FILTERER Edita Camacho MD - 05/05/2016 5:35 PM CST [facility] MEDICINE PROGRESS NOTE Chart reviewed SUBJECTIVE: Has been struggling with pain control. When I walked in, son and riaahqwq-vt-sfv are in the room, aswell as the [...] and coordination of care. Edita Camacho MD KEY FILTERER Rolando Valladares MD - 05/05/2016 1:29 PM [...] MD 0.25 mgat 05/01/162010 ??? influenza vaccine [id number] HIGH DOSE (65 years and older) (PF) [...] PRN Janene Urrutia MD 17 g at 813 ??? senna (SENOKOT) tablet 1-2 tablet 1-2 tablet oral Twice Daily Janene Urrutia MD 2 tablet at 05/05/16 0813 ??? sodium chloride 0.9 % IV solution Intravenous CONTINUOUS Krystle Cummings PA-C 100 mL/hr at107/06/15 0334 100 mL/hr [...] of care and counseling Rolando Valladares MD KEY FILTERER Lucía Hopson RN - 05/05/2016 7:20 AM CST SBAR Pt had L5-S1 Lami and discectomy at [facility] on 04/22. She was recovering at home [...] called on her son who was visiting [facility] due to chest pain and slurred speech- had some workup in ED pm shift Shagufta Hopson RN KEY FILTERER Janene Urrutia MD - 05/04/2016 11:38 PM CST [facility] MEDICINE PROGRESS NOTE Chart reviewed SUBJECTIVE: Awake, [...] Intake/Output Summary (Last 24 hours) at 05/04/16 0458 Last data filed at 05/04/16 2209 Gross [...] -- GLUCOSE 95 87 97 ASSESSMENT: Jennifer Kirk is a 76 y.o. female with a past medical history significant for lumbardisc herniation s/p recent L5-S1 discectomy and tobacco dependence who initially presented to [facility] emergency department after having worsening back pain and increased drainage from her surgical incision site. She is a direct admission from [facility] for treatment and evaluation of post-op infection and possible sepsis. PLAN: ?? Post-operative L5-S1 discectomy infection with drainage at incision site: Patient is pspz-[id number]-[id number] that occurred at [facility] on 2016. Patient with increased pain, fevers, and leukocytosis (WBC of 15.6 at [place]). Pain management with dilaudid. Wound culture growing [...] care plan with patient. Janene Urrutia MD KEY FILTERER Sandra Quinones RN - 05/04/2016 7:34 PM [...] they would like to speak with management. KEY FILTERER Rolando Valladares MD - 05/04/2016 4:01 PM [...] MD 0.25 mgat 05/01/162010 ??? influenza vaccine [id number] HIGH DOSE (65 years and older) (PF) [...] of care and counseling Rolando Valladares MD KEY FILTERER Danii Lucia MD - 05/04/2016 3:52 PM CST Feeling better Up and walking some Drain working well Incision dressed and dry with no erythema or swelling -therapies, increase acticvity -likely discharge tomorrow and follow up in clinic on Friday Danii Lucia KEY FILTERER Marlena Millan RN - 05/04/2016 2:29 PM CST SBAR Pt had L5-S1 Lami and discectomy at [facility] on 04/22. She was recovering at home [...] self in bed. Up with SBA/walker. MARLENA MILLAN, MADELYN KEY FILTERER Lucía Hopson RN - 05/04/2016 6:54 AM CST SBAR Pt admitted from [facility] Pt had L5-S1 Lami and discectomy at [facility] on 04/22. She was recovering at home [...] this time per Neurosurgery. Shagufta Hopson RN KEY FILTERER Janene Urrutia MD - 05/03/2016 11:02 PM CST [facility] MEDICINE PROGRESS NOTE Chart reviewed SUBJECTIVE: [...] 187 -- GLUCOSE 95 87 ASSESSMENT: Jennifer Kirk is a 76 y.o. female with a past medical history significant for lumbardisc herniation s/p recent L5-S1 discectomy and tobacco dependence who initially presented to [facility] emergency department after having worsening back pain and increased drainage from her surgical incision site. She is a direct admission from [facility] for treatment and evaluation of post-op infection and possible sepsis. PLAN: ?? Post-operative L5-S1 discectomy infection with drainage at incision site: Patient is wruk-[id number]-[id number] that occurred at [facility] on 2016. Patient with increased pain, fevers, and leukocytosis (WBC of 15.6 at [place]). Zosyn and Vancomycin have been initiated, continue. [...] care plan with patient. Janene Urrutia MD KEY FILTERER Mimi Caicedo PA-C - 05/03/2016 4:16 PM [...] and discharging (? Tomorrow) Mimi Caicedo PA-C [facility] Infectious Disease KEY FILTERER Lashon Arana RN - 05/03/2016 3:10 PM CST SBAR Pt admitted from [facility]. Pt had L5-S1 Lami and discectomy at [facility] on 04/22. She was recovering at home [...] No surgery at this time per Neurosurgery. KEY FILTERER Kwaku Naranjo PA-C - 05/03/2016 10:38 AM [...] Lucia. DVT PPX: mendoza Naranjo PA-C Pager: [phone] KEY FILTERER Al Morocho PT - 05/03/2016 9:28 AM CST PT Rehabilitation Services Daily Note Diagnosis: Patient admitted to [facility] on 05/01/2016 due to L5- S1 infection and encephalopathy s/p L5-S1 laminectomy and disectomy on 04/22 (performed at [facility]). Refer to Jaimee Assessment, Chart Review, and Past Medical History. ? Social History: Patient had discharged home with support from her son after recent back surgery, wasapparently doing well until 05/01 when she developed sharp increase in low back pain with fever as well. She lives in a private home with her , her son and qujcanap-my-afd with stairs to enter with 1 rail. There are stairs within the home with 1 rail. Patient uses no assistive device at baseline. Patient has been independent with ADLs since her surgery. Patient seen in room for treatment session. Somewhat agitated that this junior underwriter presented to her room, as she did [...] from continued rehab. There have been 0/6 MACHINIST APPRENTICE visits. KEY FILTERER Manuela Tamayo, Pharm D - 05/03/2016 8:03 AM CST Pharmacy Kinetics Consult Jennifer Kirk, 05/03/2016, Time: 8:03 AM SUBJECTIVE Jennifer Kirk is a 76 y.o. female who was [...] 1 0.76 ~50 1250 mg x1 1117 [facility] 05/02 2 0.91 ~48 1250 mg q24h 0600 05/03 3 0.79 ~55 1250mg q 24h 0600 05/04 4 Tr@0530 ASSESSMENT/PLAN 76 YO F admitted with post op infection from [place]. Given 1250mg vanco prior to transfer. Continued on q 24 hour dosing here given current renal function. RENAL: SCr 0.79 - stable. Good UOP based on some volumes and number of voids charted. Vancomycin 1250 mg x1 at [facility] prior to admission 05/01. Dose: Vancomycin 1250 mg IV every 24 hours Vancomycin goal trough: 10-15 mcg/mL Next vancomycin level due: Trough 05/04/16 @0530 Pharmacy will continue to follow. Please call with questions. Manuela Tamayo, Pharm D, [facility] Phone #: [phone] KEY FILTERER Viktoria Chino RN - 05/03/2016 1:23 AM CST 05/03/16: 0123 Bean Snipper met pt in bed resting. Wound Vac intact but beeping intermittently. Per ground transportation operator manual, canister should be changed. Bean Snipper called and spoke with Bradley Carlos in [...] and off . Will continue to monitor. KEY FILTERER Rolando Fajardo RN - 05/02/2016 11:18 PM CST Alert and drowsy on and off, with decreased attains and focus , gets restless ,Here with infection to surgical incision following Discectomy /Lami Surgery at [facility] Afebrile , on IV antibiotics,unable to attain [...] left 145/66 on rt arm 82/49. Discharge:pending KEY FILTERER Yasmin Cartagena RN - 05/02/2016 3:31 PM CST Situation:76 [facility] female [facility] [facility]/lamiinfection.Code: Full. Labs: + blood [...] a walker, very unsteady on her feet.Discharge:pending KEY FILTERER Janene Urrutia MD - 05/02/2016 2:49 PM CST [facility] MEDICINE PROGRESS NOTE Chart reviewed SUBJECTIVE: [...] (1.575 m) Wt 69.4 kg (153 lb) AdX322% BMI 27.98 kg/m2 O2 Delivery Source: Nasal [...] 35.3* PLATELETCT 187 GLUCOSE 95 ASSESSMENT: Jennifer Kirk is a 76 y.o. female with a past medical history significant for lumbardisc herniation s/p recent L5-S1 discectomy and tobacco dependence who initially presented to [facility] emergency department after having worsening back pain and increased drainage from her surgical incision site. She is a direct admission from [facility] for treatment and evaluation of post-op infection and possible sepsis. PLAN: ?? Post-operative L5-S1 discectomy infection with drainage at incision site: Patient is post-op day 9 after L5-S1 discectomy that occurred at [facility]. Patient with increased pain, fevers, and leukocytosis (WBC of 15.6 at [place]). Zosyn and Vancomycin have been initiated, continue. [...] care plan with patient. Janene Urrutia MD KEY FILTERER Manuela Tamayo, Pharm D - 05/02/2016 7:36 AM CST Pharmacy Kinetics Consult Jennifer Kirk, 05/02/2016, Time: 7:36 AM SUBJECTIVE Jennifer Kirk is a 76 y.o. female who was [...] 1 0.76 ~50 1250 mg x1 1117 [facility] 05/02 2 0.91 ~48 1250 mg q24h 0600 ASSESSMENT/PLAN 76 YO F admitted with post op infection from [place]. Given 1250mg vanco prior to transfer. Continued on q 24 hour dosing here given current renal function. RENAL: SCr 0.91 (trend up?) - follow. Making urine. Vancomycin 1250 mg x1 at [facility] prior to admission 05/01. Dose: Vancomycin 1250 mg IV every 24 hours Vancomycin goal trough: 10-15 mcg/mL Next vancomycin level due: 05/04/16 Pharmacy will continue to follow. Please call with questions. Manuela Tamayo, Pharm D, [facility], 05/02/2016 8:04 AM Phone #: [phone] KEY FILTERER Rolando Fajardo RN - 05/01/2016 11:37 PM CST Danielito JEROME paged with Chest x-ray results and requested for Straight cath orders. KEY FILTERER Rolando Fajardo RN - 05/01/2016 11:28 PM CST A direct admit from [facility] at 1610 with severe back pain and ?infection to incision following recent L5-S1 discectomy , per Son pt was discharge on 04/26 had a discectomy on 04/22/16 at [facility]; Pt was doing very well without pain [...] , frequent checks . Offered oral fluids. KEY FILTERER Carlos Perales, Pharm D - 05/01/2016 8:45 PM CST Pharmacy Kinetics Consult Jennifer Kirk, 05/01/2016, Time: 8:46 PM SUBJECTIVE Jennifer Kirk is a 76 y.o. female who was [...] 1 0.76 50 1250 mg x1 1117 [facility] 05/02 1250 mg q24h 06 ASSESSMENT/PLAN Vancomycin 1250 mg x1 at [facility] prior to admission 05/01. Dose: Vancomycin 1250 mg IV every 24 hours Vancomycin goal trough: 10-15 mcg/mL Next vancomycin level due: 05/04/16 Pharmacy will continue to follow. Please call with questions. Carlos Perales, Pharm D Phone #: [phone] KEY FILTERER Maricarmen Bennett RN - 05/01/2016 4:43 PM [...] Interventions included: notified MD of patient arrival. PA rufina now and son is here as well. Orientation to Unit: Patient oriented to how to call for help, name of assigned animal care technician, unit and plan of care. R. Patient expressed understanding of information.. KEY FILTERER Jamie Humphries MD - 05/01/2016 3:25 PM CST Acute Care Medicine Cross Cover Note: Called by Dr. Gould at [facility], this is a 76 y.o. female being transferred for evaluation of post operative wound infection. She had an L5-S1 discectomy by Dr. Danii Lucia last week, and came to the [facility] emergency Department yesterday with complaints of increasing back painand drainage from the incision. She originally had her surgery at [facility], but currently thathospitalization unable to accept new [...] MD, Hospitalist Internal Medicine and Pediatrics Pager: [phone] KEY FILTERER documented in this encounter H&P Notes Krystle Cummings PA-C - 05/01/2016 5:07 PM CST ADMISSION HISTORY AND PHYSICAL Patient Name: Jennifer Kirk [address]: [address] [place] [address] Age: 76 y.o. Sex: female Admission Date/Time: [...] and tobacco dependence who initially presented to [facility] emergency department after having worsening back pain and increased drainage from her surgical incision site. Patient had a discectomy on 04/22/16 at [facility]; today is post-op day 9. Her son [...] fevers, patient's son brought her to the [facility] emergency department for evaluation. Patient was found to be febrile with leukocytosis (WBC 15.6) in the emergency department. An attempt was made to transfer patient to [facility] (where surgery occurred), but hospital was full and patient's surgeon is currently out of the country. Therefore, patient was accepted as a direct admission to [facility] for further treatment of a post-op infection. [...] patient's new imaging test results. ASSESSMENT: Jennifer Kirk is a 76 y.o. female with a past medical history significant for lumbardisc herniation s/p recent L5-S1 discectomy and tobacco dependence who initially presented to [facility] emergency department after having worsening back pain and increased drainage from her surgical incision site. She is a direct admission from [facility] for treatment and evaluation of post-op infection and possible sepsis. Principal Problem: Post-operative infection Active Problems: Sepsis (HCC) Encephalopathy PLAN: ?? Post-operative L5-S1 discectomy infection with drainage at incision site: Patient is post-op day 9 after L5-S1 discectomy that occurred at [facility]. Patient with increased pain, fevers, and leukocytosis (WBC of 15.6 at [place]). Zosyn and Vancomycin have been initiated, continue. CBC and BMPin the morning. Pain management with dilaudid, rehydrate. Wound culture is pending, blood cultures reportedly collected at [facility] prior to transfer. Neurosurgery is aware of [...] our joint decision making. Krystle Cummings PA-C [facility] Medicine Service Pager: [phone] KEY FILTERER Associated attestation - Janene Urrutia MD - 05/01/2016 10:27 PM WHISKEY FILTERER I have seen the patient on my [...] MD documented in this encounter Procedure Notes Sushil Young RN - 05/09/2016 6:13 PM CSTAssociated Order(s): CONSULT VASCULAR ACCESS NURSE (VAN) Procedure(s): INSERT PICC PICC INSERTION Patient Name: Jennifer Gonzalez Kelsey Ordering Physician: AAKASH Caicedo Indications for PICC: Shelter Therapy Consent obtained from: Patient Vascular History: none Renal okay if applicable: N/A Anesthetic: 2 ml Lidocaine 1% instilled interdermal Dermatotomy: Yes Number of attempts to pass catheter successfully to SVC: One Complications: None Comments: N/A Refer to LDA properties for bundle compliance and device information. Sushil Young RN KEY FILTERER Danii Lucia MD - 05/09/2016 10:42 AM CST Pre-op diagnosis: Infected lumbar incision Post-op diagnosis: Same Procedure: Incision washout, culture, and re-closure Surgeon: Anupama Lucia Jd Edwards Consultant: Denise Kline Complications: None apparent Findings: Some purulent material GETA EBL: 10cc Specimens: Sent for culture Disposition: to PACU Danii Lucia Dictation #[id number] KEY FILTERER Tomás Poe MD - 05/08/2016 11:47 AM CST IR Procedure: CT guided aspiration of post-operative lumbar fluid collection. Physician: SHIRAZ Poe MD Complications: None. Summary: CT guided aspiration of lumbar post-operative fluid collection. Specimens sent to Pathologyfor analysis. KEY FILTERER documented in this encounter Consult Notes Amado Contreras RN - 05/08/2016 8:41 AM CST Interventional Radiology: Jennifer Kirk 1940 post op L-5 S-1 laminectomy/ discectomy infection Past Medical History Diagnosis Date ??? Lumbar disc herniation ??? Tobacco dependence Allergies Allergen Reactions ??? Percocet [Oxycodone-Acetaminophen] Itching Severe itching Lab: Results for JENNIFER KIRK ( ) as of 05/08/2016 08:41 Ref. Range 05/08/2016 05:17 PROTIME Latest Ref Range: 10.0 - 13.0 sec. 12.5 INR Latest Ref Range: 1.0 - 1.2 [address] poe. Limited exam, chart reviewed. Jennifer Kirk is a 76 y.o. female seen today [...] chart. Amado Contreras RN Radiology Nurse Clinician [facility] Radiology: [phone] Pager: [phone] KEY FILTERER Maricarmen Gomez - 05/02/2016 4:01 PM CST Occupational Therapy - Acute Evaluation Consult Patient's Name Jennifer Kirk Attending Provider Acm-Hospitalist Patient's 1940 Admitting Diagnosis [...] independence Patient Strengths Strengths: Prior Level of [place]/Activity, Motivated, Functional UE Strength Patient Limitations Limitations: [...] Unit: Not appropriate Recommendations Patient admitted to [facility] on 05/01/2016 due to L5-S1 infection and encephalopathys/p L5-S1 laminectomy and disectomy on 04/22 (performed at [facility]). Pt was seen at bedside for OT [...] OT Services: ADL's, Endurance/Activity Tolerance, Strengthening, Cognition KEY FILTERER Rolando Valladares MD - 05/02/2016 1:55 PM CST CONSULTATION NOTE Patient Name: Jennifer Kirk Age:76 y.o. Sex: female Admission Date/Time: 05/01/2016 3:48 PM Hospital Attending Physician: Acm-Hospitalist Primary Care Provider: Anup Evans MD I was asked to see this patient at the request of Dr. Humphries for evaluation and antibiotic recommendations. CONSULTATION ASSESSMENT Principal Problem: Staphylococcal infection Active Problems: Post-operative infection Sepsis (HCC) Encephalopathy PLAN/RECOMMENDATIONS: 1. Agree w IV antibiotics, adjsut once final microbiology available Wound culture from [place] system (+) S. aureus (susceptibilities not yet [...] to hospital 05/01/2016 3:48 PM here at [facility]. No family available, but review of medical record shows that initially was to be admitted to [facility] had to be diverted here due to lack of beds. Denies any LE paresthesias or weakness. Wound dressed by Neurosurgical team here @ [facility]. No fevers presently but admits to significant [...] mg 1-2 tablet oral Q4H PRN Janene Urrutai MD 650 mg at 05/01/16 2127 ??? bisacodyl (DULCOLAX) delayed released tablet 5-15 mg 5-15 mg oral DAILY PRN Janene Urrutia MD ??? cyclobenzaprine (FLEXERIL) tablet 5 mg 5 mg oral Q8H PRN Krystle Cummings PA-C 5 mg at 05/01/167 ??? heparin injection 5,000 Units 5,000 Units Subcutaneous Q8H Janene Urrutia MD 5,000 Units at 05/02/16 1338 ??? HYDROmorphone (DILAUDID) syringe 0.5-1 mg 0.5-1 mg Intravenous Q4H PRN Janene Urrutia MD 0.25 mgat 05/01/162010 ??? [START ON 05/03/2016] influenza vaccine [id number] HIGH DOSE (65 years and older) (PF) [...] ??? Vancomycin Pharmacy Consult 1 Consult N/A Janene Lizama MD ALLERGIES/SENSITIVITIES No Known Allergies FAMILY HISTORY [...] care. Time: 80 minutes Rolando Valladares MD KEY FILTERER Bradley Carlos MD - 05/02/2016 9:50 AM CST NEUROSURGICAL CONSULTATION NOTE Patient Name: Jennifer Kirk Address: [address] [place] [address] Age:76 y.o. Sex: female Admission Date/Time: 05/01/2016 3:48 PM Hospital Attending Physician: Scottm-Hospitalist I was asked to see this patient [...] grade fever on 05/01 so presented to [facility] ED for evaluation. The patient was transferred to [facility] for further care. Temp 100.1 and WBC [...] for now. Will follow. Bradley Carlos MD [facility] Neurosurgery [phone] Pg. [phone] 05/02/2016 11:39 AM KEY FILTERER Nnamdi Aguilar, PT - 05/02/2016 9:46 AM CST PT ACUTE EVALUATION History: Patient admitted to [facility] on 05/01/2016 due to L5-S1 infection and encephalopathy s/p L5-S1 laminectomy and disectomy on 04/22 (performed at [facility]). Refer to Jaimee Assessment, Chart Review, and Past Medical History. Social History: Patient had discharged home with support from her son after recent back surgery, wasapparently doing well until 05/01 when she developed sharp increase in low back pain with fever as well. She lives in a private home with her , her son and [id number] with stairs to enter with 1 rail. [...] as mental status, arousal etc improves. Recommend 24/ supervision and assist of 1-2 with all mobility at present. Patient/Family Participation in Goal Setting: Yes Patient Goal/Preference: to get better and go home. Treatment Plan: bed mobility, transfer training, gait training, balance, therapeutic exercise, patient/family education and neuromuscular re-education Goals: Short/sales expert home theater Goals: 1-5 days Patient will be able [...] 1-2x/day, 5-7days/week 5 minutes spent reviewing chart. KEY FILTERER documented in this encounter Nursing Notes EMERITA Houser - 05/11/2016 9:37 AM CST Problem: Discharge Planning Goal: Establish appropriate post-hospitalization placement Outcome: Ongoing Care Management-Discharge Plan Finalization Discharge Date: 05/11 Discharge Needs: Home Infusion, SNV Agency: [facility] (ph. [phone]) SW spoke with Angelina in intake at [facility] (ph. [phone], f. [phone]). They are able to begin services in time for patient's afternoon IV abx dose today. D/C orders, and discharge summary (when available) will be faxed to Angelina. Transportation: Patient's son will transport. Patient already called and spoke with son - he will bein shortly. Updated pt, family, bedside RN, arch cushion skiving machine operator, MANAGER OF PROGRAM of plan. SW also spoke with patient about discharge orders for home PT/OT, and patient declined at this time. Per PT note, patient has been cleared for discharge home with no further therapy recommended at this time. TURNER Godinez, [facility] Adhesive Bonding Machine Operator, Care Management Pager: [phone] 05/11/16 9:35 AM KEY FILTERER Rolando Fajardo RN - 05/10/2016 11:26 PM CST Problem: SAFETY Goal: *Communicates safety needs Outcome: Met this shift Makes needs known , uses call light. Problem: Pain Goal: Exhibits reduction in pain to a level of acceptable comfort Outcome: Met this shift Pain is well controlled with Dilaudid tablet. Martinez RN - 05/10/2016 12:32 PM CST Problem: Discharge Planning Goal: Establish appropriate post-hospitalization placement Outcome: Ongoing Care Management - Progress Note Patient's chart reviewed. Patient discussed in rounds. Anticipated Discharge Date: ? 05/11 or 05/12 Anticipated Discharge Needs: home with IV antibiotics Plan: Bean Snipper spoke to Dr. Valladares with Infectious Disease and discussed patient's IV antibiotics at discharge; patient will be started on cefazolin 2g IV q 8 hours. Patient is anxious to get home and withthe weekend approaching, junior underwriter made home infusion referrals to the following companies, per the family's request: - [facility] (p: [phone], f: [phone]) spoke with Skip. ADDENDUM (1:07 PM): VM from Skip at [facility] stating the patient has coverage for IV antibiotics at home through [facility]. [facility] covers a 75% and the patient is responsible for 25% of the entire cost, there is no deductible or out of pocket max. Bean Snipper met with patient and updated her on the aforementioned and she is wondering if she can get an idea of how much she will have to pay out of pocket. Bean Snipper called and left a message for [facility] (p: [phone]) inquiring about an approximate number of the patient's out of pocket cost. Waiting for a call back at this time. - [facility] (p: [phone], f: [phone]) spoke with Mamie. ADDENDUM (2:47 PM): VM from [facility] Smith stating the patient has 100% coverage for home IV antibiotics through [facility]. Mamie asking that if the patient goes over there weekend, to call Sarah's after hours number [phone]. - [facility] (p: [phone], f: [phone]) spoke with Cyndie. Bean Snipper called and cancelled referral. - [facility] (p: [phone], f: [phone]) spoke with Jolene. Pérez Bean Snipper called and cancelled referral. Bean Snipper met with patient and updated her on the aforementioned. Care Management will continue to follow. Kary Martinez RN Case Manager, Care Management Pager: [phone] 05/10/2016 12:59 PM ADDENDUM (2:50 PM): Bean Snipper met with patient and updated her that [facility] a [facility] and that home with IV antibiotics through [facility] would be covered at 100%. Patient has chosen [facility] to be her home infusion company at discharge. Patient called her son (Dmitriy) and junior underwriter spoke with him and updated him that his mom does have coverage to go home with IV antibiotics and that [facility] is the name of the home infusion company; Dmitriy verbalized understanding. Patient has been placed on the Care Management weekend discharge list. KEY FILTERER Sandra Quinones RN - 05/08/2016 5:35 PM CST Problem: Falls/Injury-Risk of Goal: Absence of Falls/Injury Outcome: Met this shift Patient free from falls and injury this shift. Bedside commade avaliabel and walker at bedside for fall prevention. KEY FILTERER Molly Emmanuel - 05/08/2016 3:18 PM CST Attempted PT this session. Pt currently supine in bed and has been up a lot to bathroom. Pt declinedPT today. Pt appears down about having I and D tomorrow. Pt thought she was no longer being seen by PT. Advised last PT recommends pt be seen in hospital but not further PT at discharge. KEY FILTERER Rena Martinez RN - 05/08/2016 2:39 PM CST Problem: Discharge Planning Goal: Establish appropriate post-hospitalization placement Outcome: Ongoing Care Management - Progress Note Patient's chart reviewed. Patient discussed in rounds. Anticipated Discharge Date: TBD; likely 2-3 days Anticipated Discharge Needs: IV antibiotics at discharge (4-6 weeks) - outpatient center for IV antibiotic infusion vs home with home infusion services vs TCU Plan: junior underwriter met with the patient and her son (Melchor) this afternoon to continue discussions about discharge planning, per the son's request. Bean Snipper explained that once the discharge IV antibiotic regimen is known, junior underwriter will make referrals to home infusion companies to check patient's coverage for home with IV infusion services. Patient and son (Melchor) do not have a preference of a home infusion company and asked junior underwriter to check multiple companies in hopes that one will offer coverage for IV infusion services at home. Bean Snipper informed patient's son (Melchor) and patient that junior underwriter would be happy tomake multiple referrals to different home infusion companies in hopes of getting the patient home with her . Melchor spoke with junior underwriter outside of patient's room to inform junior underwriter that patient's of over 40years is very ill and his mother is afraid that her time with him is limited and does not want to bein the hospital or a TCU when/if he passes. Bean Snipper offered support to patient's son and asked if he thought his mom would benefit from a visit from a agatha. Melchor declined and stated that his mother had a bad experience with a jainism and that a agatha consult would not be appropriate. Plan for patient to have an I&D of incision tomorrow (05/09). Care Management will continue to follow. Kary Martinez RN Case Manager, Care Management Pager: [phone] 05/08/2016 2:39 PM KEY FILTERER Suzanne Prieto RN - 05/08/2016 11:11 AM CST Problem: Falls/Injury-Risk of Goal: Absence of Falls/Injury Outcome: Met this shift 05/07/16 2693 05/08/16 1104 Safety Interventions for Fall and Injury Prevention for ALL Patients Environmental Safety Interventions -- Standard Interventions in Place;Hi-Lo Bed ([employer]);Fall Risk Light on Outside Patient Room;Fall Risk recreation program specialist Door (NMR);Patient/Family Reminded Regarding Fall Prevention;High Risk [...] or if pain PRN medication is requested. KEY FILTERER Rena Martinez RN - 05/07/2016 3:35 PM CST Problem: Discharge Planning Goal: Establish appropriate post-hospitalization placement Outcome: Ongoing Care Management - Progress Note Patient's chart reviewed. Patient discussed in rounds. Anticipated Discharge Date: TBD Anticipated Discharge Needs: home with outpatient infusion vs home with home infusion services vs TCU Plan: Bean Snipper was updated by infectious disease that the patient will more than likely need IV antibiotics at discharge. Bean Snipper met with patient and two of her sons to discuss discharge options with IV antibiotics. Bean Snipper informed the patient and her sons that the typical discharge plans for IV antibiotics are: outpatient center, home with IV infusion services, or TCU. Bean Snipper explained that it will depend on which IV antibiotics the patient discharges on, the frequency of the IV antibiotics, and patient's insurance coverage. One of the patient's sons immediately shotdown the patient receiving IV antibiotics at an outpatient center and when junior underwriter discussed potential TCU placement, her one son got very angry and agitated and told junior underwriter that TCU placement for the patient is not an option and we don't use the TCU in our family. Bean Snipper attempted to explain that itmight be the patient's only option, depending on insurance coverage, and patient's son get raising his voice and said there is absolutely no way the patient will be discharging to a TCU. Bean Snipper explained that if patient's insurance doesn't cover home infusion services, there is always the option to pay privately and both sons stated that the family would pay privately even if it was thousands of dollars per day. Bean Snipper politely asked patient's son to not personally attack junior underwriter when discussing discharge planning and junior underwriter was not getting anywhere with further discussions about discharge planning so junior underwriter ended conversation and left the room. Bean Snipper left junior underwriter's contact information for the patient and family. Care Management will continue to follow. Kary Martinez RN Case Manager, Care Management Pager: [phone] 05/07/2016 3:35 PM KEY FILTERER Tari Rose, OT - 05/07/2016 2:57 PM [...] to PT. No further OT in hospital. KEY FILTERER Ethel Smith - 05/07/2016 2:31 PM CST Care Transitions Intervention was introduced to Jennifer and family Saloni Smith [facility] Care Transitions Log Inspector [employer] [phone] KEY FILTERER Rena Martinez RN - 05/06/2016 11:10 AM [...] Martinez RN Case Manager, Care Management Pager: [phone] 05/06/2016 11:10 AM KEY FILTERER Stephania Vance RN - 05/05/2016 2:22 PM [...] aspect d/t leak. Suction cannister changed x1. KEY FILTERER Sandra Quinones RN - 05/04/2016 4:51 PM CST Problem: Pressure Ulcer - Risk of Goal: Absence of pressure ulcer Outcome: Met this shift Patient is able to move herself in bed. Skin is assessed and documented every shift per protocol KEY FILTERER Tari Rose, OT - 05/04/2016 1:50 PM CST Problem: [...] dc'd before. DC not dependent on OT. KEY FILTERER Lashon Carter, PT - 05/04/2016 12:21 PM CST PT Rehabilitation Services Daily Note Diagnosis: Patient admitted to [facility] on 05/01/2016 due to L5- S1 infection and encephalopathy s/p L5-S1 laminectomy and disectomy on 04/22 (performed at [facility]). Refer to Jaimee Assessment, Chart Review, and Past Medical History. ? Social History: Patient had discharged home with support from her son after recent back surgery, wasapparently doing well until 05/01 when she developed sharp increase in low back pain with fever as well. She lives in a private home with her , her son and dmyvvqww-wk-tvj with stairs to enter with 1 rail. [...] benefit from continued rehab. There have been / MACHINIST APPRENTICE visits. KEY FILTERER Sandra Quinones RN - 05/03/2016 6:06 PM CST Problem: Pressure Ulcer - Risk of Goal: Absence of pressure ulcer Outcome: Met this shift Patient is able to reposition herself in bed as needed, she is able to ambulate with walker to restroom. Skin is being assessed and documented every shift per protocol. KEY FILTERER Mckenzie Muhammad - 05/03/2016 3:20 PM CST Physical Therapy Daily Progress Note P: Patient admitted to [facility] on 05/01/2016 due to L5-S1 infection and encephalopathy s/p L5-S1 laminectomy and disectomy on 04/22 (performed at [facility]). Refer to Jaimee Assessment, Chart Review, and Past Medical History. ? Social History: Patient had discharged home with support from her son after recent back surgery, wasapparently doing well until 05/01 when she developed sharp increase in low back pain with fever as well. She lives in a private home with her , her son and ylbeywph-qw-iae with stairs to enter with 1 rail. [...] except for stating that she was at [facility] (per pt was admitted there before coming to [facility]). Pt gasping in pain, moving eratically at times and somewhat impulsive. She did not follow cues well. Bed Mobility: Supine to sitting eob SBA/supervision with junior underwriter giving cues to minimize discomfort. She sat [...] stay too far forwardin the walker despite junior underwriter cues. Exercise: Supine ankle pumps and LAQ [...] If discharging at this time recommend TCU. MACHINIST APPRENTICE 06/07 KEY FILTERER Tari Wiley-Anupam, OT - 05/03/2016 11:32 AM CST Problem: Impaired Living Skills Goal: Maximize independence with daily living skills Outcome: Ongoing OT:A) Seen in room this am with son, Melchor present and very involved in session. OT [...] dependent on dc home with family assist/supervision. KEY FILTERER Rolando Fajardo RN - 05/02/2016 11:20 PM [...] Percocet 1 tablet given with some relief. KEY FILTERER Maricarmen Gomez - 05/02/2016 4:13 PM CST Problem: Impaired Living Skills Goal: Maximize independence with daily living skills Outcome: Ongoing Refer to consult note for specifics. KEY FILTERER Rena Martinez RN - 05/02/2016 10:25 AM CST Problem: Discharge Planning Goal: Establish appropriate post-hospitalization placement Outcome: Ongoing Discharge Planning Initial Assessment Patients chart reviewed. Patient discussed in rounds. Patient was a direct admission from [facility] d/[facility] having no bed availability for the patient. Admitting diagnoses: post op L-5 S-1 laminectomy/ discectomy infection. Patient had her surgery withDr. Danii Lucia [facility] last week. Prior living situation or transferred from: Lives with family: , son, daughter in law Support prior to hospitalization: Family DME prior to admission: none Anticipated discharge needs: Continue to assess; patient stating she is feeling weak. PT recommendations helpful to assist with discharge planning. Possible barriers to discharge: plan for possbile post-op infection Bean Snipper met with patient to introduce self and care management role. Patient stated she was tired andwanted to rest, so junior underwriter kept visit short. Bean Snipper left junior underwriter's contact information for patient/family. Care management will continue to follow. Kary Martinez RN Case Manager, Care Management Pager: [phone] 05/02/2016 10:25 AM KEY FILTERER Rolando Fajardo RN - 05/01/2016 11:34 PM [...] pain is well contolled at this shift. KEY FILTERER documented in this encounter OR Notes OR Surgeon - Danii Lucia MD - 05/09/2016 10:47 AM CST CC: Date of Service: 05/09/2016 SURGEON: Danii Lucia MD DIRECTOR PHONE: Deepali Kline PA-C PREOPERATIVE DIAGNOSIS: Status post [...] her incision. She was admitted to [facility]. It was unclear initiallyif there was an [...] immediately available for the entire case. Physician printing bindery assistant, Deepali Kline, assisted during the procedure. Danii Lucia MD /LD Dictation ID: [id number] KEY FILTERER documented in this encounter Miscellaneous Notes Med Reconciliation - Jagdeep Tripathi, Pulpwood Buyer - 05/01/2016 9:27 PM WHISKEY FILTERER PHARMACY MEDICATION RECONCILIATION NOTE MEDICATION RECONCILIATION on admission by pharmacy has been completed. Prior to admission medications were reviewed with patient. The MACHINIST APPRENTICE medication list has been updated and reflected in the chart below. Please use the MACHINIST APPRENTICE medication section for ordering home doses during admission. Medication related issues including pertinent changes made to the MACHINIST APPRENTICE list by pharmacy: 1. Removed Tylenol and ibuprofen. 2. Added vitamin B12. PRIOR TO ADMISSION MEDICATION LIST: Prior to Admission Medications Prescriptions Last Dose Informant Patient Reported? Taking? cyanocobalamin 500 mcg oral Tab 05/01/2016 Patient Yes Yes Sig: Take 500 mcg by mouth once daily. Facility-Administered Medications: None This patient obtains medications from [facility]. Thank you for the opportunity to participate in the care of this patient. Jagdeep Tripathi, Artificial Stone Setter Phone #:[phone] or [phone] Time spent reconciling meds: 5 min KEY FILTERER Associated attestation - Carlos Perales Pharm D - 05/01/2016 11:07 PM WHISKEY FILTERER Carlos Perales Pharm D documented in this encounter Plan [...] 05/11/2016 5:16 AM Re sults for this WHISKEY FILTERER procedure are i n the results section. BASIC METAB PROFILE Routine 05/10/2016 5:49 AM Re sults for this WHISKEY FILTERER procedure are i n the results section. XR CHEST PORT LINE STAT 05/09/2016 6:28 PM Res ults for this PLACEMENT ONLY WHISKEY FILTERER procedure are in the results section. CONSULT VASCULAR Routine 05/09/2016 6:15 PM Resul ts for this ACCESS NURSE (VAN) WHISKEY FILTERER procedure are in the results section. CULT-ANAEROBE STAT 05/09/2016 10:22 Results fo r this AM WHISKEY FILTERER procedure are i n the results section. CULT-FUNGUS OTHER STAT 05/09/2016 10:22 Result s for this AM WHISKEY FILTERER procedure are i n the results section. CULT-ANAEROBIC & STAT 05/09/2016 10:22 Results for this AEROBIC (INC. GRAM AM WHISKEY FILTERER procedure are in STAIN) the results section. CULT-AEROBIC STAT 05/09/2016 10:22 Results for this AM WHISKEY FILTERER procedure are i n the results section. IRRIGATION AND 05/09/2016 9:54 AM DX: LUMBAR SURGICAL DEBRIDEMENT BACK WHISKEY FILTERER SITE INFECTION BASIC METAB PROFILE Routine 05/09/2016 5:32 AM Re sults for this WHISKEY FILTERER procedure are i n the results section. CT PUNCTURE Routine 05/08/2016 10:31 Results for this ASPIRATION AM WHISKEY FILTERER procedure are i n ABSCESS/CYST the results section. CULT-ANAEROBE Routine 05/08/2016 9:45 AM Results for this WHISKEY FILTERER procedure are i n the results section. CULT-ANAEROBIC & Routine 05/08/2016 9:45 AM Resul ts for this AEROBIC (INC. GRAM WHISKEY FILTERER procedure are in STAIN) the results section. CULT-AEROBIC Routine 05/08/2016 9:45 AM Results f or this WHISKEY FILTERER procedure are i n the results section. BASIC METAB PROFILE Routine 05/08/2016 5:17 AM Re sults for this WHISKEY FILTERER procedure are i n the results section. PROTIME/INR Routine 05/08/2016 5:17 AM Results f or this WHISKEY FILTERER procedure are i n the results section. BASIC METAB PROFILE Routine 05/07/2016 4:06 AM Re sults for this WHISKEY FILTERER procedure are i n the results section. MRI SPINE LUMBAR Routine 05/06/2016 10:30 Results for this W/O&W CON PM WHISKEY FILTERER procedure are i n the results section. XR CHEST AP PORT STAT 05/06/2016 12:13 Results for this PM WHISKEY FILTERER procedure are i n the results section. BASIC METAB PROFILE Routine 05/06/2016 6:04 AM Re sults for this WHISKEY FILTERER procedure are i n the results section. EXTRA TUBE-EDTA Routine 05/05/2016 5:10 AM WHISKEY FILTERER BASIC METAB PROFILE Routine 05/05/2016 5:10 AM Re sults for this WHISKEY FILTERER procedure are i n the results section. BASIC METAB PROFILE Routine 05/04/2016 7:05 AM Re sults for this WHISKEY FILTERER procedure are i n the results section. VANCOMYCIN TROUGH Routine 05/03/2016 5:31 AM Resu lts for this WHISKEY FILTERER procedure are i n the results section. BASIC METAB PROFILE Routine 05/03/2016 5:31 AM Re sults for this WHISKEY FILTERER procedure are i n the results section. CULT-BLOOD NMR Routine 05/02/2016 2:23 PM Results for this WHISKEY FILTERER procedure are i n the results section. CULT-BLOOD NMR Routine 05/02/2016 2:23 PM Results for this WHISKEY FILTERER procedure are i n the results section. CULT-BLOOD Routine 05/02/2016 2:23 PM Results f or this WHISKEY FILTERER procedure are i n the results section. CULT-BLOOD Routine 05/02/2016 2:23 PM Results f or this WHISKEY FILTERER procedure are i n the results section. LIVER PROFILE Routine 05/02/2016 5:33 AM Results for this WHISKEY FILTERER procedure are i n the results section. BASIC METAB PROFILE Routine 05/02/2016 5:33 AM Re sults for this WHISKEY FILTERER procedure are i n the results section. CBC/DIFF Routine 05/02/2016 5:33 AM Results f or this WHISKEY FILTERER procedure are i n the results section. EXTRA TUBE PST Routine 05/01/2016 10:36 PM WHISKEY FILTERER LACTIC ACID Routine 05/01/2016 10:25 Results for this PM WHISKEY FILTERER procedure are i n the results section. XR CHEST AP PORT Routine 05/01/2016 6:10 PM Resul ts for this WHISKEY FILTERER procedure are i n the results section. CULT-BLOOD NMR Routine 05/01/2016 5:03 PM Results for this WHISKEY FILTERER procedure are i n the results section. CULT-BLOOD NMR Routine 05/01/2016 5:03 PM Results for this WHISKEY FILTERER procedure are i n the results section. CULT-BLOOD Routine 05/01/2016 5:03 PM Results f or this WHISKEY FILTERER procedure are i n the results section. CULT-BLOOD Routine 05/01/2016 5:03 PM Results f or this WHISKEY FILTERER procedure are i n the results section. EXTRA TUBE-EDTA Routine 05/01/2016 4:55 PM WHISKEY FILTERER EXTRA TUBE PST Routine 05/01/2016 4:55 PM WHISKEY FILTERER documented in this encounter Results (ABNORMAL) Basic Metabolic Profile (05/11/2016 5:16 AM WHISKEY FILTERER)Only the most recent of10 resultswithin the time period is included. athologist Signature SODIUM 141 136 - 145 05/11/2016 [facility][NOTE 3] mMol/L 6:06 AM WHISKEY FILTERER LABORATORY POTASSIUM 3.9 3.5 - 5.1 05/11/2016 [facility][NOTE 3] mMol/L 6:06 AM WHISKEY FILTERER LABORATORY CHLORIDE 105 98 - 112 05/11/2016 [facility][NOTE 3] mMol/L 6:06 AM WHISKEY FILTERER LABORATORY CARBON DIOXIDE 31 21 - 32 05/11/2016 [facility][NOTE 3] mMol/L 6:06 AM WHISKEY FILTERER LABORATORY BUN (UREA 4 (L) 7 - 24 05/11/2016 [facility][NOTE 3] NITRO) mg/dL 6:06 AM WHISKEY FILTERER LABORATORY CREATININE 0.68 0.55 - 05/11/2016 [facility][NOTE 3] 1.02 mg/dL 6:06 AM WHISKEY FILTERER LABORATORY EST GFR >60 >60 mL/min 05/11/2016 [facility][NOTE 3] (CKD-EPI) 6:06 AM WHISKEY FILTERER LABORATORY EST GFR IF >60 >60 mL/min 05/11/2016 [facility][NOTE 3] AM 6:06 AM WHISKEY FILTERER LABORATORY GLUCOSE 94 74 - 106 05/11/2016 [facility][NOTE 3] mg/dL 6:06 AM WHISKEY FILTERER LABORATORY CALCIUM, SERUM 8.5 8.5 - 10.1 05/11/2016 [facility] mg/dL 6:06 AM WHISKEY FILTERER LABORATORY ANION GAP 5.0 0.0 - 15.0 05/11/2016 [facility][NOTE 3] mMol/L 6:06 AM WHISKEY FILTERER LABORATORY Specimen Anatomical Collection Method Collection Time Receive d Time (Source) Location / / Volume Laterality Blood SPECIMEN / Unknown 05/11/2016 5:16 AM 03/2016 5:27 WHISKEY FILTERER AM WHISKEY FILTERER Janene Urrutia MD CHEMISTRY ORDERABLE Performing Organization Address City/State/ZIP Code Phon e Number [facility] [address] [place] [address] [phone] LABORATORY [facility] [address] [place] [address] XR Chest Portable (05/09/2016 6:28 PM WHISKEY FILTERER) Anatomical Region Laterality Modality Chest Computed Radiography Specimen (Source) Anatomical Collection Method Collection Time Re ceived Time Location / / Volume Laterality 05/09/2016 6:37 PM WHISKEY FILTERER Impressions 05/09/2016 6:38 PM WHISKEY FILTERER IMPRESSION: No change in appearance the chest since the prior exam. Tip of PICC appears to be in good positi on in the vicinity of the caval-atrial junction. blank. Narrative 05/09/2016 6:38 PM WHISKEY FILTERER DATE: 05/09/2016 6:37 PM CLINICAL INFORMATION: Line [...] Vascular Access Nurse (VAN) (05/09/2016 6:15 PM WHISKEY FILTERER) Narrative Sushil Young RN - 05/09/2016 6:15 PM WHISKEY FILTERER Sushil Young RN ? 05/09/2016 ??6:15 PM ? PICC INSERTION Patient Name: Jennifer Kirk Ordering Physician: ??AAKASH Caicedo Indications for PICC: Shelter Therapy Consent obtained from: Patient Vascular History: none Renal okay if applicable: N/A Anesthetic: 2 ml ??Lidocaine 1% instille d interdermal Dermatotomy: Yes Number of attempts to pass catheter succ essfully to SVC: One Complications: None Comments: N/A Refer to LDA properties for bundle compl iance and device information. Sushil Young RN Mimi Caicedo PA-C VASCULAR ACCESS Culture-Anaerobe (05/09/2016 10:22 AM WHISKEY FILTERER)Only the most recent of2 resultswithin the time period is included. [facility] gist Method Time Signature CULT-ANAEROBE No anaerobic 05/12/2016 [facility] growth 11:21 AM WHISKEY FILTERER LABORATORY isolated in 3 days. Specimen Anatomical Collection Method Collection Time Receive d Time (Source) Location / / Volume Laterality Site-Microbiolog FLUID SPECIMEN 05/09/2016 10:22 05/09 y FROM WOUND / AM WHISKEY FILTERER 10:46 AM WHISKEY FILTERER Unknown Danii Lucia MD MICROBIOLOGY ORDERABLE Performing Organization Address City/State/ZIP Code Phon e Number [facility] [address] [place] [address] LABORATORY [facility] [place] [address] (ABNORMAL) Culture-Aerobic (05/09/2016 10:22 AM WHISKEY FILTERER)Only the most recent of2 resultswithin the time period is included. Component Value Ref Test Analysis Performed At [facility] [employer] Method Time Signature Aerobic Light growth of 05/12/2016 [place] Culture Staphylococcus 7:11 AM [facility] aureus (A) LABORATORY Gram Stain No bacteria seen. 05/12/2016 [place] Result 7:11 AM [facility] LABORATORY Gram Stain Few WBC's / LPF 05/12/2016 [place] Result 7:11 AM [facility] LABORATORY Specimen Anatomical Collection Method Collection Time Receive d Time (Source) Location / / Volume Laterality Site-Microbiolog FLUID SPECIMEN 05/09/2016 10:22 05/09 y FROM WOUND / AM WHISKEY FILTERER 10:46 AM WHISKEY FILTERER Unknown Narrative [facility] - 05/12/2016 7 :11 AM WHISKEY FILTERER Lumbar wound Organism Antibiotic Method Susceptibility Staphylococcus aureus Clindamycin <=0.50: Se nsitive Staphylococcus aureus Doxycycline <=0.50: Se nsitive Staphylococcus aureus Erythromycin <=0.50: Se nsitive Staphylococcus aureus Oxacillin 0.50: Sens itive Staphylococcus aureus Tetracycline <=0.50: Se nsitive Staphylococcus aureus Trimethoprim/Sulfamethoxazole <=1/19: Sensitive Danii Lucia MD MICROBIOLOGY ORDERABLE Performing Organization Address City/State/ZIP Code Phon e Number [facility] [address] [place] [address] LABORATORY [facility] [address] [place] [place] [address] Fungal Culture (05/09/2016 10:22 AM WHISKEY FILTERER) [facility] [employer] Method Time Signature Fungal Other No fungus 06/09/2016 [facility][NOTE 3] Culture isolated. 11:00 AM WHISKEY FILTERER LABORATORY KAYLAH No Fungal 06/09/2016 [facility][NOTE 3] Elements 11:00 AM WHISKEY FILTERER LABORATORY seen. Specimen Anatomical Collection Method Collection Time Receive d Time (Source) Location / / Volume Laterality Site-Microbiolog FLUID SPECIMEN 05/09/2016 10:22 05/09 y FROM WOUND / AM WHISKEY FILTERER 10:46 AM WHISKEY FILTERER Unknown Danii Lucia MD MICROBIOLOGY ORDERABLE Performing Organization Address City/State/ZIP Code Phon e Number [facility] [address] [address] LABORATORY [facility] [address] PUNCTURE ASPIRATION ABSCESS/CYST (05/08/2016 10:31 AM WHISKEY FILTERER) Anatomical Region Laterality Modality Breast Computed Tomography Specimen (Source) Anatomical Collection Method Collection Time Re ceived Time Location / / Volume Laterality 05/08/2016 11:44 AM WHISKEY FILTERER Impressions 05/08/2016 11:49 AM WHISKEY FILTERER IMPRESSION: CT-guided aspiration of small dorsal lumbar fluid collection. Specimen sent to laboratory for culture. Narrative 05/08/2016 11:49 AM WHISKEY FILTERER EXAM: CT-guided fluid aspiration. 05/08/2016 8:03 AM. [...] ORDERABLE Protime / INR (05/08/2016 5:17 AM WHISKEY FILTERER) P athologist Signature PROTIME 12.5 10.0 - 13.0 05/08/2016 [facility]NOTE 3] sec. 5:50 AM WHISKEY FILTERER LABORATORY INR 1.1 1.0 - 1.2 05/08/2016 [facility][NOTE 3] 5:50 AM WHISKEY FILTERER LABORATORY Specimen Anatomical Collection Method Collection Time Receive d Time (Source) Location / / Volume Laterality Blood 05/08/2016 5:17 AM 6 5:36 WHISKEY FILTERER AM WHISKEY FILTERER Deepali Kline PA-C COAGULATION ORDERABLE Performing Organization Address City/State/ZIP Code Phon e Number [place] [id number] [place] [address] LABORATORY [facility] [address] [place], [place] [address] MRI SPINE LUMBAR WO & W IV CONTRAST (05/06/2016 10:30 PM WHISKEY FILTERER) Anatomical Region Laterality Modality Spine Magnetic Resonance Specimen (Source) Anatomical Collection Method Collection Time Re ceived Time Location / / Volume Laterality 05/06/2016 10:39 PM WHISKEY FILTERER Impressions 05/06/2016 10:54 PM WHISKEY FILTERER IMPRESSION: 1. ??At L5-S1, interval midline laminect [...] neural foraminal stenosis. Narrative 05/06/2016 10:54 PM WHISKEY FILTERER EXAM: ??MRI SPINE LUMBAR W/O & W [...] XR CHEST AP PORT (05/06/2016 12:13 PM WHISKEY FILTERER)Only the most recent of2 resultswithin the time period is included. Anatomical Region Laterality Modality Chest Computed Radiography Specimen (Source) Anatomical Collection Method Collection Time Re ceived Time Location / / Volume Laterality 05/06/2016 12:56 PM WHISKEY FILTERER Impressions 05/06/2016 12:58 PM WHISKEY FILTERER IMPRESSION: Patchy bibasilar pulmonary opacities in noted consistent with bibasilar consolidation and/or atelectasis. Narrative 05/06/2016 12:58 PM WHISKEY FILTERER EXAM: ??SINGLE PORTABLE SEMI-UPRIGHT AP VIEW CHEST [...] a pleural effusion or pneumothorax. Procedure Note Milled Rubber Tender, Anup Walker MD - 05/06/2016Formattin g of [...] Tube-EDTA (Lab Use Only) (05/05/2016 5:10 AM WHISKEY FILTERER)Only the most recent of2 resultswithin the time period is included. Specimen Anatomical Collection Method Collection Time Receive d Time (Source) Location / / Volume Laterality Blood 05/05/2016 5:10 AM 6 5:35 WHISKEY FILTERER AM WHISKEY FILTERER Janene Urrutia MD HEMATOLOGY ORDERABLE Performing Organization Address City/[facility]/ZIP Code Phon e Number [facility] [address] [place] [phone] LABORATORY (ABNORMAL) Vancomycin - Trough (05/03/2016 5:31 AM WHISKEY FILTERER) Analysis Performed At [facility] logist Time Signature VANCOMYCIN 7.1 (L) 10.0 - 05/03/2016 [facility][NOTE 3] TROUGH 20.0 ug/mL 8:53 AM WHISKEY FILTERER LABORATORY Comment: 15-20 ug/mL is the suggested re ference range for complicated infections. Specimen Anatomical Collection Method Collection Time Receive d Time (Source) Location / / Volume Laterality Blood 05/03/2016 5:31 AM 6 5:55 WHISKEY FILTERER AM WHISKEY FILTERER Manuela Fernandez D CHEMISTRY ORDERABLE Performing Organization Address City/[facility]/ZIP Code Phon e Number [address] [place] [address] [address] Cult-Blood NMR (lab use only) (05/02/2016 2:23 PM WHISKEY FILTERER)Only the most recent of4 resultswithin the time period is included. [facility] gist Method Time Signature Blood Culture No growth 5 05/08/[address] [facility] L days. 7:29 AM WHISKEY FILTERER LABORATORY Specimen Anatomical Collection Method Collection Time Receive d Time (Source) Location / / Volume Laterality Blood 05/02/2016 2:23 PM 6 3:04 WHISKEY FILTERER PM WHISKEY FILTERER Rolando Valladares MD MICROBIOLOGY ORDERABLE Performing Organization Address City/State/ZIP [facility] Phon e Number [facility] [address] [place] [address] LABORATORY [facility] [address] [place] [address] (ABNORMAL) Liver Profile (05/02/2016 5:33 AM WHISKEY FILTERER) Analysis Performed At Patho logist Time Signature ALT 53 12 - 68 05/02/2016 [facility][NOTE 3] IU/L 2:16 PM WHISKEY FILTERER LABORATORY ALKALINE 71 45 - 117 05/02/2016 [facility][NOTE 3] P'TASE IU/L 2:16 PM WHISKEY FILTERER LABORATORY AST (SGOT) 32 12 - 37 05/02/2016 [facility][NOTE 3] IU/L 2:16 PM WHISKEY FILTERER LABORATORY PROTEIN TOTAL 5.6 (L) 6.4 - 8.2 05/02/2016 [facility][NOTE 3] g/dL 2:16 PM WHISKEY FILTERER LABORATORY ALBUMIN 2.9 (L) 3.4 - 5.0 05/02/2016 [facility][NOTE 3] g/dL 2:16 PM WHISKEY FILTERER LABORATORY BILIRUBIN-DIRE 0.50 (H) 0.05 - 05/02/2016 [facility][NOTE 3] CT 0.24 mg/dL 2:16 PM WHISKEY FILTERER LABORATORY BILIRUBIN-TOTA 1.5 (H) 0.2 - 1.0 05/02/2016 [facility][NOTE 3] L mg/dL 2:16 PM WHISKEY FILTERER LABORATORY Specimen Anatomical Collection Method Collection Time Receive d Time (Source) Location / / Volume Laterality Blood 05/02/2016 5:33 AM 6 5:58 WHISKEY FILTERER AM WHISKEY FILTERER Rolando Valladares MD CHEMISTRY ORDERABLE Performing Organization Address City/[facility]/ZIP Code Phon e Number [facility] [address] [place] [address] [phone] LABORATORY [facility] [address] [place], [place] [address] (ABNORMAL) CBC / Diff (05/02/2016 5:33 AM WHISKEY FILTERER) Patholo gist Method Time Signature WBC 9.2 4.3 - 10.8 05/02/2016 [facility][NOTE 3] K/uL 6:18 AM WHISKEY FILTERER LABORATORY RBC 3.60 (L) 4.20 - 05/02/2016 [facility][NOTE 3] 5.40 M/uL 6:18 AM WHISKEY FILTERER LABORATORY HEMOGLOBIN 11.1 (L) 12.0 - 05/02/2016 [facility][NOTE 3] 16.0 gm/dL 6:18 AM WHISKEY FILTERER LABORATORY HEMATOCRIT 35.3 (L) 36.0 - 05/02/2016 [facility][NOTE 3] 48.0 % 6:18 AM WHISKEY FILTERER LABORATORY MCV 98 80 - 100 05/02/2016 [facility][NOTE 3] fl 6:18 AM WHISKEY FILTERER LABORATORY MCH 31 27 - 33 pg 05/02/2016 [facility][NOTE 3] 6:18 AM WHISKEY FILTERER LABORATORY MCHC 31 (L) 33 - 36 05/02/2016 [facility][NOTE 3] gm/dL 6:18 AM WHISKEY FILTERER LABORATORY RDW 12.6 11.5 - 05/02/2016 [facility][NOTE 3] 14.5 % 6:18 AM WHISKEY FILTERER LABORATORY PLATELET COUNT 187 150 - 400 05/02/2016 [facility]NOTE 3] K/uL 6:18 AM WHISKEY FILTERER LABORATORY MPV 11.4 6.5 - 12.0 05/02/2016 [facility] [facility] [place]NOTE 3] 6:18 AM [facility] PMN % 75.4 % 05/02/2016 [facility] [place][NOTE 3] 6:18 AM [facility] IG% 0.3 <=1.0 % 05/02/2016 [facility] [place][NOTE 3] 6:18 AM [facility] LYMPH % 15.5 % 05/02/2016 [facility] [place][NOTE 3] 6:18 AM [facility] MONO % 7.7 % 05/02/2016 [facility] [place]NOTE 3] 6:18 AM [facility] EOS % 0.9 % 05/02/2016 [facility] [place]NOTE 3] 6:18 AM [facility] BASO % 0.2 % 05/02/2016 [facility] [place][NOTE 3] 6:18 AM [facility] PMN ABSOLUTE 6.96 1.80 - 05/02/2016 [facility] [place][NOTE 3] 7.80 K/uL 6:18 AM [facility] IG ABSOLUTE 0.03 K/uL 05/02/2016 [facility] [place][NOTE 3] 6:18 AM [facility] LYMPH ABSOLUTE 1.43 1.00 - 05/02/2016 [facility] [place][NOTE 3] 4.00 K/uL 6:18 AM [facility] MONO ABSOLUTE 0.71 0.00 - 05/02/2016 [facility] [place][NOTE 3] 1.00 K/uL 6:18 AM [facility] EOS ABSOLUTE 0.08 0.00 - 05/02/2016 [facility] [place][NOTE 3] 0.45 K/uL 6:18 AM [facility] BASO ABSOLUTE 0.02 0.00 - 05/02/2016 [facility] [place][NOTE 3] 0.20 K/ul 6:18 AM [facility] NUCL RBC % 0.0 0.0 - 0.0 05/02/2016 [facility] [place]NOTE 3] /100 WBC 6:18 AM [facility] NUCL RBC 0.00 K/uL 05/02/2016 [facility] [place]NOTE 3] ABSOLUTE 6:18 AM [facility] Specimen Anatomical Collection Method Collection Time Receive d Time (Source) Location / / Volume Laterality Blood 05/02/2016 5:33 AM 6 5:59 [facility] AM [facility] Janene Urrutia MD HEMATOLOGY ORDERABLE Performing Organization Address City/[facility]/ZIP Code Phon e Number [facility] [address] [place] [phone] LABORATORY [facility] [address] [place] [address] Extra Tube PST (Lab Use Only) (05/01/2016 10:36 PM [facility]ER)Only the most recent of2 resultswithin the time period is included. Specimen Anatomical Collection Method Collection Time Receive d Time (Source) Location / / Volume Laterality Blood 05/01/2016 10:36 05/01/2016 PM [facility] 10:47 PM [facility] Janene Urrutia MD CHEMISTRY ORDERABLE Performing Organization Address City/State/ZIP Code Phon e Number [facility] [address] [place] [address] LABORATORY Lactic Acid, Plasma (05/01/2016 10:25 PM [facility]) P athologist Signature LACTIC ACID 0.7 0.7 - 2.1 05/01/2016 [facility] [place][NOTE 3] mMol/L 10:36 PM [facility] Specimen Anatomical Collection Method Collection Time Receive d Time (Source) Location / / Volume Laterality Blood 05/01/2016 10:25 05/01/2016 PM [facility] 10:34 PM [facility] Janene Urrutia MD CHEMISTRY ORDERABLE Performing Organization Address City/[facility]/ZIP Code Phon e Number [facility] [address] [place] [phone] LABORATORY [facility] [address] [phone] documented in this encounter Visit Diagnoses Not on filedocumented in this encounter Administered Medications Inactive Administered Medications - up to 3 most recent administrations Medication Order MAR Action Action Date Dose Rate Site saline FLUSH syringe 10 mL Given 05/11/2016 5:05 AM [facility] 10 mL 10 mL, Intra-Catheter, EVERY 8 HOURS, First dose on Shannon 05/09/16 at 2200, Until Discontinued Given 05/10/2016 9:27 PM [facility] 10 mL Given 05/10/2016 2:56 PM [facility] 10 mL saline FLUSH syringe 10-20 mL Given 05/10/2016 10:15 AM [facility] 10 mL 10-20 mL, Intra-Catheter, NEEDED, Starting on Shannon 05/09/16 at 1750, Until 05/11/16 at 1639, Line Care, for PICC or Midline Line Care saline FLUSH syringe 5 mL Given 05/11/2016 5:06 AM [facility] 5 mL 5 mL, Intravenous, EVERY 8 HOURS, First dose on Fri05/01/16 at 1615, Until Discontinued Given 05/10/2016 5:57 AM [facility] 5 mL Given 05/08/2016 3:02 PM [facility] 5 mL saline FLUSH syringe 5 mL Given 05/10/2016 8:08 AM [facility] 5 mL 5 mL, Intravenous, NEEDED, Starting on Fri05/01/16 at 1559, Until 05/11/16 at 1639, Line Care Given 05/09/2016 8:49 AM [facility] 5 mL Right Arm Given 05/06/2016 8:21 AM [facility] 10 mL saline FLUSH syringe 5 mL Given 05/11/2016 5:06 AM [facility] 5 mL 5 mL, Intravenous, EVERY 8 HOURS, First dose on Shannon 05/09/16 at 1400, Until Discontinued Given 05/10/2016 9:27 PM [facility] 5 mL Given 05/10/2016 6:00 AM [facility] 5 mL saline FLUSH syringe 5 mL Given 05/10/2016 9:01 AM [facility] 5 mL 5 mL, Intravenous, NEEDED, Starting on Shannon 05/09/16 at 0911, Until 05/11/16 at 1639, Line Care acetaminophen (TYLENOL) tablet 325-650 m g Given 05/11/2016 1:34 AM [facility] 650 mg 325-650 mg (1-2 tablet), oral, EVERY 4 HOURS NEEDED, Starting on Fri05/01/16 at 1603, Until 05/11/16 at 1639, fever, pain Given 05/09/2016 6:31 AM [facility] 650 mg Given 05/08/2016 1:52 PM [facility] 650 mg bacitracin 50,000 Units in sodium chloride Given 05/09 10:32 AM [facility] 1,000 mL 0.9% Irrig 1,000 mL bottle Irrigation, INTRA-PROCEDURE ONE TIME DOSE NEEDED, 1 dose, Starting on Shannon 05/09/16 at 0925, Until Shannon 05/09/16 at 1032, PLEASE PUT IN BAG. THANKS bisacodyl (DULCOLAX) delayed released tablet 5 Given 1 07/12/2015 8:19 AM [facility] 5 mg mg 5 mg, oral, DAILY, First dose on Fri05/06/16 at 1445, Until Discontinued Given 05/08/2016 10:50 AM [facility] 5 mg Given 05/07/2016 8:56 AM [facility] 5 mg bisacodyl (DULCOLAX) delayed released tablet Given 11/2015 10:43 AM [facility] 15 mg 5-15 mg 5-15 mg, oral, DAILY NEEDED, Starting on Fri05/01/16 at 1600, Until 05/11/16 at 1639, constipation Given 05/05/2016 8:36 PM [facility] 15 mg Given 05/04/2016 5:18 AM [facility] 10 mg ceFAZolin ( ANCEF) 2 g in iso-osmotic dextrose New Bag 1 07/12/2015 5:05 AM [facility] 2 g 50 mL IV piggyback 2 g, Intravenous, EVERY 8 HOURS (NS), First dose on Fri05/10/16 at 1300, Until Discontinued, Administer over 30 Minutes New Bag 05/10/2016 8:55 PM [facility] 2 g New Bag 05/10/2016 2:56 PM [facility] 2 g cyclobenzaprine (FLEXERIL) tablet 5 mg Given 05/06/2016 4:01 PM [facility] 5 mg 5 mg, oral, EVERY 8 HOURS NEEDED, Starting on Fri05/01/16 at 2044, Until 05/11/16 at 1639, muscle spasm Given 05/06/2016 8:21 AM [facility] 5 mg Given 05/05/2016 8:36 PM [facility] 5 mg heparin injection 5,000 Units Given 05/11/2016 7:09 AM [facility] 5,000 Units Abdom en 5,000 Units, Subcutaneous, EVERY 8 HOURS, First dose (after last modification) on Fri05/10/16 at 0600, Until Discontinued Given 05/10/2016 9:26 PM [facility] 5,000 Units Abdom en Given 05/10/2016 2:55 PM [facility] 5,000 Units Abdom en HYDROmorphone (DILAUDID) syringe 0.5-1 m g Given 05/10/2016 8:06 AM [facility] 0.5 mg 0.5-1 mg, Intravenous, EVERY 4 HOURS NEEDED, Starting on Fri05/01/16 at 1603, Until 05/11/16 at 1639, Severe Pain Given 05/08/2016 7:43 AM [facility] 0.5 mg Given 05/08/2016 4:26 AM [facility] 0.5 mg HYDROmorphone (DILAUDID) tablet 1 mg Given 05/11/2016 10:33 AM [facility] 1 mg 1 mg, oral, EVERY 4 HOURS NEEDED, Starting on 05/06/16 at 1438, Until 05/11/16 at 1639, pain Given 05/11/2016 1:35 AM [facility] 1 mg Given 05/10/2016 7:41 PM [facility] 1 mg lidocaine 1% (XYLOCAINE) injection Given 05/09/2016 8:49 AM [facility] 0.1 mL Right Arm 0.1-0.3 mL 0.1-0.3 mL, Intradermal, NEEDED, Starting on Fri05/01/16 at 1559, Until 05/11/16 at 1639, IV start or restart Given 05/06/2016 1:20 AM [facility] 0.2 mL Left Forearm Given 05/04/2016 10:26 AM [facility] 0.2 mL Righ t Arm lidocaine 1% (XYLOCAINE) injection 1-3 m L 1-3 mL, Intradermal, NEEDED, Starting on Shannon 05/09/16 at 1750, Until 05/11/16 at 1639, IV start or restart of PICC or MIDLINE cathet er LORazepam (ATIVAN) injection (conc: 2 mg/mL) 1 Given 1 07/07/2015 9:25 PM [facility] 1 mg mg 1 mg, Intravenous, EVERY 4 HOURS NEEDED, Starting on 05/06/16 at 1959, Until 05/11/16 at 1639, anxiety, agitation, sleep, for shortness of breath magnesium hydroxide (MILK OF MAGNESIA) Given 05/05/2016 12:56 PM [facility] 30 mL suspension 30 mL 30 mL, oral, DAILY NEEDED, Starting on Fri05/01/16 at 1600, Until 05/11/16 at 1639, constipation, if no response after polyethylene glycol. Given 05/04/2016 8:24 AM [facility] 30 mL ondansetron (ZOFRAN) disintegrating tablet 4-8 Given 1 07/09/2015 10:50 AM [facility] 4 mg mg 4-8 mg, oral, EVERY 8 HOURS NEEDED, Starting on Fri05/01/16 at 1600, Until 05/11/16 at 1639, nausea & vomiting Given 05/04/2016 7:24 PM [facility] 8 mg Given 05/02/2016 12:10 PM [facility] 4 mg ondansetron (ZOFRAN) injection 4-8 mg Given 05/09/2016 2:56 AM [facility] 4 mg 4-8 mg, Intravenous, EVERY 8 HOURS NEEDED, Starting on Fri05/01/16 at 1600, Until 05/11/16 at 1639, nausea & vomiting Given 05/07/2016 10:54 AM [facility] 4 mg Given 05/04/2016 3:30 AM [facility] 4 mg polyethylene glycol (MIRALAX) packet 17 g Given 05/07/2016 10:43 AM [facility] 17 g 17 g, oral, DAILY NEEDED, Starting on Fri05/01/16 at 1600, Until 05/11/16 at 1639, constipation, if no response to bisacodyl 15mg. Given 05/05/2016 8:13 AM [facility] 17 g saline with benzyl alcohol injection 0.1 -0.3 mL 0.1-0.3 mL, Intradermal, NEEDED, Starting on Shannon at 0911, Until 05/11/16 at 1639, IV start or restart senna (SENOKOT) tablet 1-2 tablet Given 05/11/2016 8:19 AM [facility] 2 tablets 1-2 tablet, oral, TWICE A DAY, First dose on Fri05/01/16 at 2000, Until Discontinued Given 05/10/2016 7:41 PM [facility] 1 tablet Given 05/08/2016 8:35 PM [facility] 2 tablets simethicone (MYLICON) chewable tablet 80-160 Given 02/2016 8:56 AM [facility] 160 mg mg 80-160 mg (1-2 tablet), oral, EVERY 6 HOURS NEEDED, Starting on 05/06/16 at 2048, Until 05/11/16 at 1639, flatulence Given 05/08/2016 8:35 PM [facility] 160 mg Given 05/07/2016 9:15 AM [facility] 160 mg sodium chloride 0.9 % IV solution New Bag 05/09/2016 6:31 AM [facility] 75 mL/hr 75 mL/hr at 75 mL/hr, Intravenous, CONTINUOUS, Starting on 05/06/16 at 2100, Until 05/11/16 at 1639 New Bag 05/08/2016 4:00 PM [facility] 75 mL/hr 75 mL/hr New Bag 05/07/2016 10:37 PM [facility] 75 mL/hr 75 mL/hr sodium phosphates (FLEET) rectal enema 1 Given 05/05/2016 9:56 A M [facility] 1 enema enema 1 enema, Rectal, DAILY NEEDED, Starting on Fri05/01/16 at 1600, Until 05/11/16 at 1639, constipation, if no response after magnesium hydroxide. documented in this encounter Active and Recently Administered Medications Times are shown in [facility]. Scheduled Medication Order 05/09/2016 05/10/2016 05/11/2016 saline FLUSH syringe 10 mL 2200 (Given - Provider: Evelin Correa RN) 0557 (Given - Provider: Maximo Montez RN)1456 (Given - Provider: Gracia Young RN)2127 (Given - Provider: Rolando Fajardo RN) 0505 (Given - Provider: Viktoria Chino RN) 10 mL, Intra-Catheter, EVERY 8 HOURS, Fi rst dose on Shannon 05/09/16 at 2200, Until Discontinued saline FLUSH syringe [...] Reason: Clinically appropriate (comment) - Comment: IVF infusing)2129 (Given - Provider: Evelin Correa, MADELYN) 0600 (Given - Provider: Maximo Montez RN)1400 (Canceled Entry - Provider: Gracia Young RN)2127 (Given - Provider: Rolando Fajardo RN) 0506 [...] iso-osmotic dextrose 50 mL IV lakisha yback 1456 (New Bag - Provider: Gracia Young RN)2054 (New Bag - Provider: Rolando Fajardo RN) [...] Maximo Montez RN)1455 (Given - Provider: Gracia Young, MADELYN)2126 (Given - Provider: Rolando Fajardo RN) 0709 (Given - Provider: Viktoria worthington, MADELYN) 5,000 Units, Subcutaneous, EVERY 8 HOURS , First dose on Fri05/10/16 at 0600, Until Discontinued influenza vaccine [id number] HIGH DOSE (6 5 years and older) (PF) (FLUZONE HIGH DOSE) 0.5 mL 0.5 mL, IntraMUSCULAR, ONE TIME ONLY - TOMORROW, 1 dose, 07/18 at 0800 senna (SENOKOT) tablet 1-2 tablet 0800 (Not Given - Pr ovider: Veirto Heart RN - Reason: NPO)2155 (Declined - Provider: Evelin Correa RN) 0800 (Declined - Provider: Gracia Young RN)1941 (Given - Provider: Rolando Fajardo RN) 0819 (Given - Provider: Good Zamarripa) 1-2 tablet, oral, TWICE A DAY, First dos e on Fri05/01/16 at 2000, Until Discontinued Continuous Medication Order 05/09/2016 05/10/2016 05/11/2016 lactated ringers (LR) IV infusion (CANCELED) 1130 (New Bag - Provider: Anjelica George, MADELYN) at 100 mL/hr, Intravenous, CONTINUOUS, S tarting Shannon 05/09/16 at 1045, Until Shannon 05/09/16 at 1203, PACU sodium chloride 0.9 % IV solution 0631 (New Bag - Prov ider: Maximo Montez RN) at 75 mL/hr, Intravenous, CONTINUOUS, St arting 05/06/16 at 2100, Until 05/11/16 at 1639 PRN Medication Order 05/09/2016 05/10/2016 05/11/2016 saline FLUSH syringe 10-20 mL 1015 (Given - Pr ovider: Brianna Hoffman, RN) 10-20 mL, Intra-Catheter, NEEDED, Sta rting Shannon 05/09/16 at 1750, Until 05/11/16 at 1639, Line Care, for PICC or Midline Line Care saline FLUSH syringe 5 mL 0849 (Given - Provider: Juliana German, RN) 0808 (Given - Provider: Gracia Young, MADELYN) [...] Montez, MADELYN) 0134 (Given - Provider: Reid Chino, MADELYN) 325-650 mg (1-2 tablet), oral, EVERY 4 H OURS NEEDED, Starting 05/01/16 at 1603, Until 05/11/16 at 1639, Fever, Pain bacitracin 50,000 Units in sodium chlori de 0.9% Irrig 1,000 mL bottle (COMPLETED) 1032 (Given - Provider: Danii Lucia MD) Irrigation, INTRA-PROCEDURE ONE TIME DOS E NEEDED, 1 dose, Starting Shannon 05/09/16 at 0925, Until Shannno 05/09/16 at 2359, PLEASE PUT IN BAG. THANKS bisacodyl (DULCOLAX) delayed released tablet 5-15 mg 5-15 mg, oral, DAILY NEEDED, Starting 05/01/16 at 1600, Until 05/11/16 at 1639, Constipation cyclobenzaprine (FLEXERIL) tablet 5 mg 5 mg, oral, EVERY 8 HOURS NEEDED, Sta rting 05/01/16 at 2044, Until 05/11/16 at 1639, Muscle spasm fentaNYL (SUBLIMAZE) injection 25-50 mcg (CANCELED) 11 18 (Given - Provider: Anjelica George, MADELYN)1130 (Given - Provider: Anjelica George RN) 25-50 mcg, Intravenous, EVERY 5 MINUTES NEEDED, Starting Shannon 12 at 1039, Until Shannon 1216 at 1203, PACU, for acute surgical pain, This medication has a Blackbox Warning. Click the formulary reference link for more information. HYDROmorphone (DILAUDID) syringe 0.2-0.4 mg (CANCELED) 1118 (Given - Provider: Anjelica George RN)1122 (Given - Provider: Anjelica George RN)1128 (Given - Provider: Anjelica George RN) 0.2-0.4 mg, Intravenous, EVERY 5 MINUTES NEEDED, 5 doses, Starting Shannon 12 at 1039, Until Shannon 12 at 1203, PACU, for post acute pain management while in recovery area. HYDROmorphone (DILAUDID) syringe 0.5-1 mg 0806 (Given - Provider: Gracia Young RN) 0.5-1 mg, Intravenous, EVERY 4 HOURS NEEDED, Starting 05/01/16 at 1603, Until 05/11/16 at 1639, Severe Pain HYDROmorphone (DILAUDID) tablet 1 mg 0455 (Given - Pro vider: Maximo Montez RN)2206 (Given - Provider: Evelin Correa RN) 0605 (Given - Provider: Maximo Montez RN)1514 (Given - Provider: Gracia Young, MADELYN)1941 (Given - Provider: Rolando Fajardo RN) 0135 (Given - Provider: Viktoria worthington RN)1033 (Given - Provider: Ana Child RN) 1 mg, oral, EVERY 4 HOURS NEEDED, Sta rting 05/06/16 at 1438, Until 05/11/16 at 1639, Pain hydrOXYzine pamoate (VISTARIL) capsule 25-50 mg (COMPL ETED) 1118 (Given - Provider: Anjelica George, RN) 25-50 mg, oral, ONE TIME DOSE NEEDED, 1 dose, Starting Shannon 05/09/16 at 1039, Until Discontinued, PACU, for augmentation of narcotic based analgesia while in recovery area. lidocaine 1% (XYLOCAINE) injection 0.1-0.3 mL 0849 (Gi alfonzo - Provider: Juliana German, MADELYN) 0.1-0.3 mL, Intradermal, NEEDED, Star ting 05/01/16 [...] 1) 0256 (Given - Provider: Maximo Montez MADELYN) 4-8 mg, Intravenous, EVERY 8 HOURS NE EDED, Starting Fri05/01/16 at 1600, Until 05/11/16 at 1639, Nausea & Vomiting polyethylene glycol (MIRALAX) packet 17 g 17 g, oral, DAILY NEEDED, Starting We d 05/01/16 at 1600, Until 05/11/16 at 1639, Constipation, if no response to bisacodyl 15mg. saline with benzyl alcohol injection 0.1-0.3 mL 0.1-0.3 mL, Intradermal, NEEDED, Star ting Shannon 05/09/16 at 0911, Until 05/11/16 at 1639, IV start or restart simethicone (MYLICON) chewable tablet 80-160 mg 0856 (Given - Provider: Gracia Young, MADELYN) 80-160 mg (1-2 tablet), oral, EVERY 6 [...] (COMPLETED) 1012 (Given - Provider: Mahnaz Casarez APRN, RETAIL SHIFT LEADER) 1 dose, Starting on Shannon 05/09/16 at 1017, Until Shannon 05/09/16 at 10 17 Linked Groups Order Group 1: ondansetron (ZOFRAN) injection 4-8 mgJump to med 4-8 mg, Intravenous, EVERY 8 HOURS NE EDED, Starting Fri05/01/16 at 1600, Until 05/11/16 at 1639, Nausea & Vomiting Or ondansetron (ZOFRAN) disintegrating tablet 4-8 mgJump to med 4-8 mg, oral, EVERY 8 HOURS NEEDED, S tarting Fri05/01/16 at 1600, Until 05/11/16 at 1639, Nausea & Vomiting documented in this encounter Care Teams [employer]ary Drum Dyer Relationship Specialty Start Date End Date Anup Evans MD PCP - General Internal Medicine 02/23/[address] [place] [address] Dr Pérez [facility] Internal Medicine [place] [address] [facility] PCP - Primary Care Clinic [facility] P[address]REZ [facility] [place] [address] Francesco Bonner MD 08/11/13 documented as of this encounter
--- OUTSIDE RECORDS SUMMARY | 2022-02-13 11:42 | XMS_ITS ---
:1940 Author Care Team Providers Name Role Phone DR. YULI WATKINS Primary Care Provider [phone] Allergies None recorded. Medications None recorded. Problems None recorded. Procedures None recorded. Results Lab Results None recorded. Past Encounters None recorded. Social History None recorded. Vaccine List None recorded. Plan of Care Reminders Provider Appointments None recorded. ? ? Lab None recorded. ? ? Referral None recorded. ? ? Procedures None recorded. ? ? Surgeries None recorded. ? ? Imaging None recorded. ? ? Vitals None recorded.
--- OUTSIDE RECORDS SUMMARY | 2022-02-13 11:42 | XMS_ITS | Encounter Summary ---
:[address] [facility] Address [address] [place] [address] Care Team Providers Name Role Phone Geni, Primary Care Provider Unavailable Clinic, No Primary Unavailable Unavailable Reason for Visit Reason Comments Foot injury Encounter Details Date Type Department Care Team Description 12/03/[address] [facility] Yaakov Guidry MD Emergency Care [place] [address] [place], [place] [address] [address] [place] [address] [phone] (Wo rk) Social History Tobacco Use Types Packs/Day Years Used Date Smoking Tobacco: Every Day Cigarettes 0.5 Alcohol Use Standard Drinks/Week Comments Yes 0 [...] Sign Reading Time Taken Comments Blood Pressure 119/78 12/03/2011 2:44 PM CDT Pulse 69 12/03/2011 2:44 PM CDT Temperature - - Respiratory Rate 16 12/03/2011 2:44 PM CDT Oxygen Saturation 96% 12/03/2011 2:44 PM CDT Inhaled Oxygen Concentration - - Weight - - Height - - Body Mass Index - - documented in this encounter Discharge Instructions Discharge Lana Chen Milkus, MD - 12/03/2011 3:23 PM CDT Return for worsening pain or swelling. documented in this encounter ED Notes Dipika Guidry MD - 12/03/2011 4:44 PM CDT CC: Primary Care: None, though she wants to go to [facility] CHIEF COMPLAINT: Left toe injury. HISTORY OF PRESENT ILLNESS: This is a 71-year-old female who presents with left toe injury. She was walking in the garage in flip flops and she somehow stubbed her toe. She has been able to weight bearmore on the heel, not on the front of her toe and she feels like the toe is more swollen. No numbness or tingling. No pain in the foot. She had a little bit of pain in the calf that is gone now. She isable to move the foot, but it is just uncomfortable. PAST MEDICAL HISTORY, MEDICATIONS AND ALLERGIES: These are reviewed. Please see Epic. SOCIAL HISTORY: No alcohol, drugs or tobacco. REVIEW OF SYSTEMS: CONSTITUTIONAL: Reviewed and negative. MUSCULOSKELETAL: See HPI. NEUROLOGIC: Reviewed and negative. SKIN: Reviewed and negative. PHYSICAL EXAMINATION: VITAL SIGNS: Temperature 36.6, pulse 67, respirations 18, blood pressure 122/78, sats 98% on room air. GENERAL: Alert female in no acute distress. HEENT: Head is atraumatic, normocephalic. Pupils equal, round, reactive to light bilaterally. Oropharynx is clear. CARDIOVASCULAR: Regular rate and rhythm, no murmurs, rubs or gallops. RESPIRATORY: Clear to auscultation bilaterally. MUSCULOSKELETAL: Left great toe, MTP joint is slightly swollen and she is tender right over it and then all the way down the phalanx. There is no bruising. She has good cap refill. The rest of the footis nontender. She is able to range the toe. SKIN: No rash. NEUROLOGIC: Alert and oriented x3. Cranial nerves II-XII are intact. Distal strength is 5/5 in the left foot. PSYCHIATRIC: Normal affect. EMERGENCY DEPARTMENT COURSE AND MEDICAL DECISION MAKING: The patient was seen and examined as above.Differential diagnosis includes left toe fracture, dislocation, toe contusion, toe sprain. I sent the patient over for an x-ray and her x-ray is unremarkable. 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 Her pain should be getting better within the next couple days. If she continues to have significant pain she needs a repeat x-ray. She is interested in changing primary. She is interested in [facility]. I gave her some suggestions for there. At this time, she will be discharged in stable condition. She was given a hard-soled shoe. She declined anything for pain here or for home. She will follow up with her primary in one week. FINAL DIAGNOSIS: Toe sprain. PLAN: Discharged with plan as above. Dipika Guidry MD / Dictation ID: [id number] Colin Russell RN - 12/03/2011 3:32 PM CDT ECC DISCHARGE SBAR S: Situation Patient ready for discharge. Rating pain at 1/Comfort goal of 1. Patient denies any complaints or needs at time of discharge. BP 119/78 Pulse 69 Resp 16 SpO2 96% Patient appears in no acute distress. A: Assessment Patient discharged ambulatory to home at 1536 escorted by son. Discharge instructions and arrangement include: F/u with pmd Patient/family response: son R: Recommendation Patient recommended to follow up as instructed by ECC provider. Patient and/family verbalized understanding of information. Colin Russell RN - 12/03/2011 2:41 PM CDT Return form xray. Pt resting comfortably Colin Russell RN - 12/03/2011 2:33 PM CDT To xray Tim Carvajal RN - 12/03/2011 2:19 PM CDT Pt complains of left foot pain after tripping and stubbing left great toe today. documented in this encounter Plan of Treatment Not on filedocumented as of this encounter Procedures Procedure Name Priority Date/Time Associated Diagnosis Comme nts XR TOES LT STAT 12/03/2011 2:39 PM Results f or this CDT procedure are i n the results section . documented in this encounter Results XRAY TOES LEFT (12/03/2011 2:39 PM CDT) Anatomical Region Laterality Modality Extremity Computed Radiography Specimen (Source) Anatomical Collection Method Collection Time Re ceived Time Location / / Volume Laterality 12/03/2011 2:41 PM CDT Impressions 12/03/2011 2:45 PM CDT IMPRESSION: No fracture is seen. 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 Narrative 12/03/2011 2:45 PM CDT EXAMINATION: Left great toe, 3 views. ??12/03/2011 2:33 PM CLINICAL DATA: Trauma. ? COMPARISON: ??None. FINDINGS: Three views were performed. ?? No fracture or dislocation is identified. ??There is moderate narrowing of the left first metatarsophalangeal joint space with some spurring about that joint. ?? No other soft tissue, bony or joint abno rmality is seen. Procedure Note Dustin Melendez MD - 12/03/2011Forma tting of this note might be different from the original. EXAMINATION: Left great toe, 3 views. 12/03/2011 2:33 PM CLINICAL DATA: Trauma. COMPARISON: None. FINDINGS: Three views were performed. No fracture or dislocation is identified. There is moderate narrowing of the left first metatarsophalangeal joint space with some spurring about that joint. No other soft tissue, bony or joint abnorma lity is seen. IMPRESSION: No fracture is seen. Moderat e degenerative changes are seen about the left first metatarsophalangeal joint. Dipika Guidry MD XRAY ORDERABLE documented in this encounter Visit Diagnoses Diagnosis Toe sprain Sprain of foot, unspecified site documented in this encounter Care Teams Livestock Yard Supervisor Relationship Specialty Start Date End Date None, PCP - General 05/31/09 08/25/13 Clinic, No Primary PCP - Primary Care Clinic 05/31/09 08/29/13 documented as of this encounter
--- OUTSIDE RECORDS SUMMARY | 2022-02-13 11:42 | XMS_ITS | Encounter Summary ---
:1940 Author Organization [facility] Address [address] [place] [address] Care Team Providers Name Role Phone Geni, Primary Care Provider Unavailable Clinic, No Primary Unavailable Unavailable Francesco Bonner MD Unavailable Unavailable Reason for Referral (Routine) - Closed Specialty Diagnoses / Procedures Referred By Contact Refer red To Contact Diagnoses Screening for condition Francesco Bonner MD Procedures LIPID PROFILE CASCADE Referral ID Status Reason Start Date Expiration Date Visits Requ ested Visits Authorized [id number] Closed 08/11/2013 02/07/2014 1 1 Consultation (Routine) - Closed Specialty Diagnoses / Procedures Referred By Contact Refer red To Contact Physical Therapy Diagnoses Disc herniation Francesco Bonner MD Referral ID Status Reason Start Date Expiration Date Visits V isits Requested Authorized [id number] Closed Specialty 08/11/2013 02/07/2014 1 1 Services Required Reason for Visit Reason Comments Pneumonia possible Encounter Details Date Type Department Care Team Description 08/11/2013 Office Visit [facility] Francesco Bonner (Primary Dx); Louie Altman MD Screening for condition [address] [place], [place] [address] Social History Tobacco Use Types Packs/Day Years Used Date Smoking Tobacco: Every Day Tobacco Cessation: Counseling Given: No Alcohol Use Standard Drinks/Week Comments Not Asked 0 (1 standard drink = 0.6 oz pure alcoho l) Alcohol Habits Answer Date Recorded How often [...] Sign Reading Time Taken Comments Blood Pressure 114/76 08/11/2013 3:12 PM CDT Pulse 77 08/11/2013 3:12 PM CDT Temperature 36.8 ??C (98.2 ??F) 08/11/2013 3:12 PM CDT Respiratory Rate 16 08/11/2013 3:12 PM CDT Oxygen Saturation 96% 08/11/2013 3:12 PM CDT Inhaled Oxygen Concentration - - Weight 75.3 kg (166 lb) 08/11/2013 3:12 PM CDT Height - - Body Mass Index 30.36 08/08/2013 5:36 PM CDT documented in this encounter Patient Instructions Patient InstructionsFrancesco Bonner MD - 08/11/2013 4:22 PM CDT INSTRUCTIONS FOR Jennifer Cole: 1. Call the PT cuate, make an appointment at [facility]: [email or web address] [address], [place] ?? Directions ?? Details 2. Take oxycodone 1 pill every 4 hours. This is the most you should take. 3. Keep using lidoderm. 4. At night you can use ice once the patch comes off. 5. Come back and see me in 1-2 weeks. If this gets worse, we need to talk about other solutions. 6. Take 2 senna twice daily. 7. Take miralax every day and stop it if your stools get loose. 8. I'll call with the results of the tests we did today for diabetes and cholesterol. 9. If you get numb in the crotch/groin, i fyou get weak, if you start losing urine or can[t poop despite miralax, call us. Francesco Bonner MD [facility] [address] [place] [address] documented in this encounter Progress Notes Cristiane Saini MD - 08/25/2013 3:18 PM CDT The patient was seen and examined with Francesco Bonner MD. Findings described by Dr. Francesco Bonner MD confirmed. Assessment reviewed. Plan of care, orders and follow-up approved as described byDr. Francesco Bonner MD. Cristiane Saini MD Francesco Bonner MD - 08/11/2013 3:30 PM CDT FAMILY MEDICINE OUTPATIENT VISIT 08/11/2013 SUBJECTIVE: PREFERRED PHONE CONTACT: [phone]. OK TO LEAVE MESSAGE? Yes. PREFERRED PHARMACY: [facility] in [place]. FLU SHOT: Don't believe in them. IMMUNIZATIONS? Doesn't want any. SMOKER? 63pack years daily. VITAMIN D? Takes it daily. HEALTH SCREENING? Needs Jennifer Cole is a 73 y.o. female here for f/u for L5-S1 disk hernation and for diabetes check. The patient is most concerned about her back pain, getting back to her job, is concerned that she might lose it if she doesn't get back there soon. She has extensive family history of disc hernation at the same level. Her sciatica is severe. No saddle anesthesia. The paresthsesias in the R leg are getting worse, from toes to mid thigh now, 2 days ago was to tibial plateau. She doesn't think she has any weakness. No urinary incontinence. She did poop last night She's on daily miralax. She's tried steroid injection and burst and these did not help at all. She hasn't yet tried PT. She's using lidoderm patches. Using 650mg acetaminophen 4 times daily Can't take ubpuprofen d/t previous severe PUD Oxycodone 1-2 tablets every 8 hours. Flexeril 10mg TID. No sweats or chills or fevers. Breathing: Her breathing is fine. No increase in cough. The Problem List, Past Medical History, Family History, Medications, and allergies were reviewed andupdated [facility]. Current Outpatient Prescriptions: oxyCODone, immediate release, (OXY IR) 5 mg Oral Cap Take 5-10 mg by mouth every 4 (four) hours as needed. ROS: Positive findings and pertinent negatives reported above OBJECTIVE: BP 114/76 Pulse 77 Temp(Src) 98.2 ??F (36.8 ??C) (Oral) Resp 16 Wt 75.297 kg (166 lb) SwW268% Gen: Well nourished, in pain, unable to sit for more than several minutes. HEENT: PERRL, WNL Neuro: Normal tone. No wasting. The strength w/ hip extension, flexion, abduction and adduction, legextension and flexion, ankle flexion and extension, EHL/FHL are all 5/5 BL. Light touch is intact inall dermatomes of R lower extremity. Skin: Warm, dry; no rashes/lesions Psych: Calm, appropriate, A&Ox3. Good eye contact. Last 24 hour Lab Results BASIC METABOLIC PANEL BFM Result Value Range GLUCOSE 96.0 BUN 10.0 CREATININE 0.8 EGFR (NON BLACK) 74.7 EGFR (BLACK) 90.4 SODIUM 141.0 POTASSIUM 3.8 CHLORIDE 97.0 CO2 30.0 CALCIUM 8.8 HGB A1C (GLYCO HGB) (CLINIC ONLY) Result Value Range HGBA1C OP 5.2 LIPID PROFILE CASCADE Result Value Range SPECIMEN TYPE Non-Fasting CHOLESTEROL 184 TRIGLYCERIDES PROFILE 141 LDL CHOL, CALC 95 HDL CHOLESTEROL 61 CHOL/HDL RATIO 3.0 Narrative: LDL CHOLESTEROL REFERENCE RANGES: (FOR PATIENTS W/O HEART DISEASE) <100 mg/dL = Optimal 100-129 mg/dL = Near/Above Optimal 130-159 mg/dL = Borderline High 160-189 mg/dL = High >/= 190 mg/dL = Very High ASSESSMENT/PLAN: Jennifer was seen today for L5/S1 disc hernation and health screening. She is a lifelong 63 pack year daily smoker and has absolutely no interest in quitting, despite extensive discussion about this. Her breathing is fine. Her pain is not well controlled, and I will increase the frequency of her oxycodone, which she's taking 5-10mg q8h now. Will increase to q4h, and make sure she goes to PT. If PT and activity do not begin to improve things in 2 weeks, she should be referred to neurosurgery, or the surgeon who worked onher son if he's in network. Otherwise, see Patient instructions for full plan. She can't take NSAIDSd/t a history of severe PUD that required 2 weeks hospitalization. HEr labs indicate she does not have diabetes, her lipids are at goal, and her kidneys are normal. Diagnoses and associated orders for this visit: Disc herniation - oxyCODONE, immediate release, (ROXICODONE) 5 mg Oral Tab; Take by mouth every 4 (four) hours as needed. - REFERRAL PHYSICAL THERAPY Screening for condition - Basic Metabolic Panel (BFM) - In Clinic - GLYCOSOLATED HGB (A1C) - In Clinic - Lipid Profile, non-fasting Other Orders - oxyCODone, immediate release, (OXY IR) 5 mg Oral Cap; Take 5-10 mg by mouth every 4 (four) hours as needed. INSTRUCTIONS FOR Jennifer Cole: 1. Call the PT cuate, make an appointment at [facility]: [facility] [place] [email or web address] [address], [place] ?? Directions ?? Details 2. Take oxycodone 1 pill every 4 hours. This is the most you should take. 3. Keep using lidoderm. 4. At night you can use ice once the patch comes off. 5. Come back and see me in 1-2 weeks. If this gets worse, we need to talk about other solutions. 6. Take 2 senna twice daily. 7. Take miralax every day and stop it if your stools get loose. 8. I'll call with the results of the tests we did today for diabetes and cholesterol. TO-DO LIST FOR FUTURE VISIT: - consider referral to neurosurgery. - Recommend low dose lung screening CT. - Discuss dexa. Options for treatment and follow-up care were reviewed with the patient and/or guardian. Jennifer Cole and/or guardian engaged in the decision making process and verbalized understanding of the options discussed and agreed with the final plan. Francesco Bonner MD, PGY1 PAGER # [phone] Saini. documented in this encounter Miscellaneous Notes Encounter Documentation - Elly Rod - 08/11/2013 3:11 PM CDT Chief Complaint Patient presents with ??? Pneumonia possible Medication list rviewed with Marie. Elly Rod MA documented in this encounter Plan of Treatment Scheduled Referrals Name Type Priority Associated Diagnoses Order S chedule REFERRAL PHYSICAL THERAPY Referral Routine Disc herniation Ordered: 08/11/2013 documented as of this encounter Procedures Procedure Name Priority Date/Time Associated Diagnosis Comme nts BASIC METABOLIC Routine 08/11/2013 3:54 PM Screening for Resul ts for this PANEL BFM CDT condition procedure are i n the results section. LIPID PROFILE Routine 08/11/2013 3:54 PM Screening for Results for this CASCADE CDT condition procedure are i n the results section. HGB A1C (GLYCO HGB) Routine 08/11/2013 3:54 PM Screening for R esults for this (BFM / STH USE CDT condition procedure are in ONLY) the results section. documented in this encounter Results LIPID PROFILE CASCADE (08/11/2013 3:54 PM CDT) [facility] gist Method Time Signature SPECIMEN TYPE Non-Fasti 08/11/[address] [facility] ng 5:53 PM CDT LABORATORY CHOLESTEROL 184 <200 08/11/[address] [facility] mg/dL 5:53 PM CDT LABORATORY TRIGLYCERIDES 141 <150 08/11/[address] [facility] PROFILE mg/dL 5:53 PM CDT LABORATORY LDL CHOL, CALC 95 <100 08/11/2013 [facility] mg/dL 5:53 PM CDT LABORATORY HDL CHOLESTEROL 61 >40 mg/dL 08/11/2013 [facility] LAB[facility]ORY CHOL/HDL RATIO 3.0 0.0 - 4.9 08/11/2013 [facility] 5:53 PM CDT LABORATORY Specimen Anatomical Collection Method Collection Time Receive d Time (Source) Location / / Volume Laterality Blood specimen VENOUS BLOOD 08/11/2013 3:54 PM 014 5:40 (specimen) SPECIMEN / Unknown CDT PM CDT Narrative [facility] LABORATORY - 08/11/2013 5 :53 PM CDT LDL CHOLESTEROL REFERENCE RANGES: (FOR PATIENTS W/O HEART DISEASE) <100 mg/dL = Optimal 100-129 mg/dL = Near/Above Optimal 130-159 mg/dL = Borderline High 160-189 mg/dL = High >/= 190 mg/dL = Very High Francesco Bonner MD CHEMISTRY ORDERABLE Performing Organization Address [facility] Phon e Number [facility] [address] [place] [address] LABORATORY [facility] [address] [place] [address] [phone] HGB A1C (GLYCO HGB) (CLINIC ONLY) (08/11/2013 3:54 PM CDT) athologist Signature HGBA1C OP 5.2 4.1 - 5.7 % [facility] Specimen Anatomical Collection Method Collection Time Receive d Time (Source) Location / / Volume Laterality Blood specimen VENOUS BLOOD 08/11/2013 3:54 PM 014 3:54 (specimen) SPECIMEN / Unknown CDT PM CDT Franecsco Bonner MD CHEMISTRY ORDERABLE Performing Organization Address City/[facility] Phon e Number [facility] [address] [place], [place] [address] BASIC METABOLIC PANEL BFM (08/11/2013 3:54 PM CDT) athologist Signature GLUCOSE 96.0 60.0 - ONI 109.0 mg/dL [facility] BUN 10.0 7.0 - 30.0 NOI mg/dL [facility] CREATININE 0.8 0.6 - 1.3 ONI mg/dL [facility] eGFR 74.7 >60.0 ONI mL/min [facility] EGFR (BLACK) 90.4 >60.0 ONI mL/min [facility] SODIUM 141.0 133.0 - ONI 144.0 mmo/L [facility] POTASSIUM 3.8 3.4 - 5.3 [place] mmol/L [facility] CHLORIDE 97.0 94.0 - [place]I 109.0 [facility] mmol/L MEDICINE CO2 30.0 20.0 - 32.0 [place] mmol/L [facility] CALCIUM 8.8 8.5 - 10.4 [place] mg/dL [facility] Specimen Anatomical Collection Method Collection Time Receive d Time (Source) Location / / Volume Laterality VENOUS BLOOD 08/11/2013 3:54 PM 4 3:54 SPECIMEN / Unknown CDT PM CDT Francesco Bonner MD CHEMISTRY ORDERABLE Performing Organization Address City/State/ZIP Code Phon e Number [facility] [address] [place], [place] [address] documented in this encounter Visit Diagnoses Diagnosis Disc herniation - Primary Displacement of intervertebral disc, sit e unspecified, without myelopathy Screening for condition Screening for unspecified condition documented in this encounter Care Teams Clinical Laboratory Scientist Relationship Specialty Start Date End Date Geni, PCP - General 05/31/09 08/25/13 Clinic, No Primary PCP - Primary Care Clinic 05/31/09 08/29/13 Francesco Bonner MD 08/11/13 documented as of this encounter
--- OUTSIDE RECORDS SUMMARY | 2022-02-13 11:42 | XMS_ITS | Encounter Summary ---
:1940 Author Organization [facility] Address [address] [place] [id number] Care Team Providers Name Role Phone Geni, Primary Care Provider Unavailable Clinic, No Primary Unavailable Unavailable Reason for Visit Reason Comments Back Pain Encounter Details Date Type Department Care Team Description 07/25/2013 Emergency [facility] Mimi Tamayo MD Emergency Care [place] [address] [place], [place] [address] [address] [place] [address] [phone] (Wo rk) Social History Tobacco Use Types [...] Sign Reading Time Taken Comments Blood Pressure 119/70 07/25/2013 12:45 PM [facility] Pulse 55 07/25/2013 12:45 PM [facility] Temperature - - Respiratory Rate - - Oxygen Saturation 97% 07/25/2013 12:45 PM [facility]ST [facility] Inhaled Oxygen Concentration - - Weight - - Height - - Body Mass Index - - documented in this encounter Discharge Instructions AttachmentsThe following attachments cannot be sent through Care Everywhere. SCIATICA (LUX[place]BOURG[place])documented in this encounter ED Notes Mimi Tamayo MD - 07/25/2013 4:07 PM CST CC: Primary Care: Unlisted. MODE OF ARRIVAL: By car. CHIEF COMPLAINT: Back pain. HISTORY OF PRESENT ILLNESS: The patient is a 73-year-old woman who is otherwise in good health. She comes in today with right lower back pain. This is something that she has had on and off for a coupleof months now and she has been getting treatment at a chiropractor, which has helped significantly. She has not had any trauma or injury and she really feels pain in her right buttock. It is kind of anachy, sharp pain, it radiates down her posterior lateral right leg. It does kind of wax and wane andshe has had near complete resolution of it with some chiropractic manipulation in the last few weeks. However, it became acutely exacerbated about three days ago. 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 He had a fall and she had to get him up, so she bent down and did this twisting maneuver and kind of tweaked her back. This caused an acute exacerbation of her pain. She has not been able to tolerate this and has been sleeping poorly atnight. She has just been taking ibuprofen but takes about six tablets of 600 mg a day and that is able to get the pain to a tolerable degree but she feels that it is excessive in quantity. She denies any numbness, tingling, weakness or falls. She has no other history of back injury, IV drug use or anticoagulation. REVIEW OF SYSTEMS: Otherwise, a complete ten-point review of systems was performed and negative or noncontributory, except as stated above in the HPI. PAST MEDICAL HISTORY: Heartburn. SURGERIES: Cholecystectomy. MEDICATIONS: None. ALLERGIES: No known drug allergies. SOCIAL HISTORY: She does smoke about a half pack of cigarettes per day. No alcohol use. No drugs. PHYSICAL EXAMINATION: VITAL SIGNS: Nursing notes and vital signs reviewed, these were all within normal limits. GENERAL: This is a pleasant, well-appearing elderly woman who is in obvious moderate discomfort. HEENT: Head is atraumatic, normocephalic. Eyes: Extraocular movements intact. Pupils equal, round, reactive to light. Mucous membranes are moist. NECK: Supple with normal range of motion. No midline C-spine tenderness. CARDIAC: Regular rate and rhythm, no murmur. RESPIRATORY: She is breathing comfortably, in no distress with clear breath sounds. GASTROINTESTINAL: Abdomen is soft, nontender, nondistended with normoactive bowel sounds. MUSCULOSKELETAL: She has normal range of motion in all extremities without tenderness or swelling. BACK: She has no midline lumbar or thoracic tenderness. She does have tenderness to the gluteal muscles in the right buttock without significant bruising. SKIN: Warm and well perfused. There is no erythema or rash. NEUROLOGIC: She is awake, alert and oriented with a grossly normal neurologic exam including symmetric muscle tone, strength and sensation through all extremities and a normal gait. MEDICAL DECISION MAKING: This is a 73-year-old woman coming in today with acute exacerbation of right low back and buttock pain radiating into her right leg. This sounds most consistent with acute sciatica. She has not had any trauma. She has no high risk features to suggest an underlying infectious or malignant etiology. She has no midline tenderness which is reassuring. This is mostly musculoskeletal and likely of sciatica in nature. She is neurologically intact. At this point I do not see an indication for acute imaging with an MRI; this is something that can be entertained as an outpatient if she is not improving. However, with her acute pain, she would benefit from acute pain management. I gave her an IM dose of 10 mg of morphine and she had significant relief from that. Reassessment after administration demonstrates an intact neurologic exam and significant improvement in her discomfort. She feels ready to go home at this point. I am going to discharge her with oxycodone. She can take twoevery six hours as needed for her pain. I am going to have her follow up with either [facility] or spine clinic for therapy and further evaluation. She can continue to go to a chiropractorclinic if she feels that is necessary. FINAL DIAGNOSIS: Acute sciatica. DISPOSITION: Discharged to home. Mimi Taamyo MD /CP Dictation ID: [id number] TURNER Caesar Boogie RN - 07/25/2013 12:54 PM CST ECC DISCHARGE SBAR S: Situation Patient ready for discharge. Patient denies any complaints or needs at time of discharge. BP 105/80 Pulse 70 SpO2 97% Patient appears in no acute distress. A: Assessment Patient discharged ambulatory to home at 1305 escorted by self, nurse, and son Discharge instructions and arrangement include: All discharge instructions reviewed with pt and family. Pt given prescription and instructed on use and side effects. Pt instructed not to drive home andstated her son would drive her home. Patient/family response: All questions asked and answered, pt expressed understanding of information R: Recommendation Patient recommended to follow up as instructed by ECC provider. Patient and/family verbalized understanding of information. TURNER Caesar Boogie RN - 07/25/2013 11:35 AM CST Morphine given per MAR. Pt placed on monitors TURNER Luis Manuel Connor RN - 07/25/2013 10:51 AM CST S: back pain. B: Pt complains of back pain for months which has been getting worse and worse. No injury or fall/trauma that patient can remember. Came in today because patient states her kids want her checked out. A: Pt states the pain is to her right side and radiates down her right leg. No n/t but does have pain down into the side of her foot. Taking ibuprofen but her stomach can't take it anymore. No bowel orbladder problems. R: awaiting md corona. TURNER documented in this encounter Plan of Treatment Not on filedocumented as of this encounter Visit Diagnoses Diagnosis Sciatica - Primary documented in this encounter Administered Medications Inactive Administered Medications - up to 3 most recent administrations Medication Order MAR Action Action Date Dose Rate Site MORphine (PF) injection Given 07/25/2013 11:35 AM 10 mg Right Lateral Thigh (conc: 10 mg/mL) 10 mg LAST TURNER 10 mg, IntraMUSCULAR, ONCE, 1 dose, On 07/25/13 at 1145 documented in this encounter Active and Recently Administered Medications Times are shown in LAST TURNER. Scheduled Medication Order 07/23/2013 07/24/2013 07/25/2013 MORphine (PF) injection (conc: 10 mg/mL) 10 mg (COMPLETED) 1135 (Given - Provider: Casear Boogie RN) 10 mg, IntraMUSCULAR, ONE TIME DOSE, 1 dose, 07/25/13 at 1145 documented in this encounter Care Teams Prosthetic Dentist Relationship Specialty Start Date End Date None, PCP - General 05/31/09 08/25/13 Clinic, No Primary PCP - Primary Care Clinic 05/31/09 08/29/13 documented as of this encounter
--- OUTSIDE RECORDS SUMMARY | 2022-02-13 11:42 | XMS_ITS | Encounter Summary ---
:1940 Author Organization [facility] Address [address] [place] [address] Care Team Providers Name Role Phone Geni, Primary Care Provider Unavailable Clinic, No Primary Unavailable Unavailable Reason for Visit Reason Comments Back Pain Encounter Details Date Type Department Care Team Description 08/01/2013 - Emergency [facility] Chadd Dunn MD 08/02/2013 Emergency Care [place] [id number] [facility] [address] [place], [place] [address] [address] [place] [address] [phone] (Wo rk) Social History Tobacco Use Types [...] Sign Reading Time Taken Comments Blood Pressure 95/73 08/02/2013 12:15 AM DESIGN SALES CONSULTANT Pulse 75 08/02/2013 12:22 AM DESIGN SALES CONSULTANT Temperature - - Respiratory Rate - - Oxygen Saturation 96% 08/02/2013 12:22 AM DESIGN SALES CONSULTANT Inhaled Oxygen Concentration - - Weight - - Height - - Body Mass Index - - documented in this encounter Discharge Instructions AttachmentsThe following attachments cannot be sent through Care Everywhere.BACK PAIN, ADULT ([place])SCIATICA ([place])PAIN MEDICINE INSTRUCTIONS ([place]) documented in this encounter ED Notes Frank Dunn MD - 08/02/2013 2:08 AM CST CC: Primary Care Physician: None CHIEF COMPLAINT: Low back pain. HISTORY OF PRESENT ILLNESS: The patient is a 73-year-old female who presents to the emergency department for evaluation of low back pain. It has been ongoing for the last two or three months, although worse over the last two or three weeks, radiating to the right lower extremity. Denies any bowel or urinary incontinence. Denies any weakness of the right lower extremity. She was seen by an orthopedic surgeon approximately one week ago. X-rays were negative. She was provided Ultram and Flexeril with partial improvement. She was also provided a Medrol Dosepak. Her symptoms were worse today and she presents to the emergency department. Denies any fevers, cough or congestion. Denies any chest pain, shor tness of breath or abdominal pain. Denies any urinary symptoms. REVIEW OF SYSTEMS: All systems reviewed and negative except as above. PAST MEDICAL HISTORY, MEDICATIONS AND ALLERGIES: Please see Epic chart, reviewed in detail. SOCIAL HISTORY: Positive for tobacco and social alcohol use. FAMILY HISTORY: Noncontributory. PHYSICAL EXAMINATION: GENERAL: The patient is a 73-year-old female who appears uncomfortable. VITAL SIGNS: Temperature 98.1, pulse 75, respiratory rate 16, BP 102/70, saturating 96% on room air. HEENT: Head is normocephalic, atraumatic. Pupils are equally round and reactive. SPINE: No cervical, thoracic or lumbar vertebral point tenderness. Right-sided low back pain reproducible with palpation. No CVA tenderness. CARDIAC: Regular rate and rhythm. No rubs or gallops. PULMONARY: Clear to auscultation bilaterally. No rales, rhonchi or wheezing. ABDOMEN: Bowel sounds present, soft, nontender, nondistended, no rebound or guarding. EXTREMITIES: Warm and dry. No cyanosis, edema or tenderness. SKIN: No rashes. NEUROLOGIC: The patient is alert and conversant. Strength is 5/5 throughout. Sensory to light touch is intact throughout. Reflexes are 2+/4 bilateral patellar. Intact pulses in all four extremities. Straight leg raising test is negative bilaterally. LABORATORY EVALUATION: White count 7.9, hemoglobin 14.2, glucose 102, creatinine 1.21. IMAGING STUDIES: MRI of the spine lumbar without contrast revealed partial collapsed disk at L5-S1, extruded disk posterior to L1 vertebral body on the right side which exhibits mass effect transversing the S1 nerve root. MEDICAL DECISION MAKING: The patient is a 73-year-old female who presents with three months of rightlow back pain worsening over the last two to three weeks. Neuro exam is otherwise unremarkable. Given the chronicity of her symptoms, I did obtain an MRI. This revealed a partial collapse of the L5-S1 disk with mass effect transversing the S1 nerve root. She was provided Dilaudid 0.5 mg IV x1, Zofran 4 mg IV x1 and Ativan 1 mg IV x1 and her pain significantly improved. I see no signs to suggest an acute neurosurgical emergency at this point. The patient was reassured of these findings. She was provided a prescription for D[place], dispensed 30. Instructed her to establish primary care for further manag ement as well as physical therapy. She has seen an orthopedic surgeon for this. Instructed to followup closely as an outpatient. ER return instructions provided. DISPOSITION: The patient discharged home in no acute distress. DIAGNOSIS: Low back pain and sciatica. Frank Dunn MD /LD Dictation ID: [id number] Pizarro RN - 08/02/2013 12:[address] [facility] DISCHARGE SBAR S: Situation Patient ready for discharge. Rating pain at acceptable. Patient denies any complaints or needs at time of discharge. BP 95/73 Pulse 75 SpO2 96% Patient appears in no acute distress. A: Assessment Patient discharged ambulatory to home at 0040 escorted by daughter. Discharge instructions and arrangement include: Written and verbal Patient/family response: Understood R: Recommendation Patient recommended to follow up as instructed by ECC provider. Patient and/family verbalized understanding of information. Pizarro RN - 08/02/2013 12:09 AM CST Report received from Caesar Williamson, sats are 99% on RA at this time. GN SALES CONSULTANT Caesar Boogie RN - 08/01/2013 10:23 PM CST Pt's sats mid 90's on RA. GN SALES CONSULTANT Caesar Boogie RN - 08/01/2013 10:15 PM CST Pt sleepy, awakes when speaking to pt. request to watch pt and reassess at 2300 Boogie RN - 08/01/2013 9:40 PM CST Attempted to wean pt off of 2L NC. sats dropped to upper 80's. Pt placed on 2L NC GN SALES CONSULTANT Caesar Boogie RN - 08/01/2013 8:55 PM CST Pt back from MRI, placed on monitors. States I don't feel any pain right now. GN SALES CONSULTANT Caesar Boogie RN - 08/01/2013 8:09 PM CST Pt given ativan per MAR GN SALES CONSULTANT Cisco Gutierrez RN - 08/01/2013 8:02 PM CST Call received from [facility], patient unable to complete imaging due to claustrophobia. RN to MRI to medicate. Gutierrez RN - 08/01/2013 7:52 PM CST Patient to MRI GN SALES CONSULTANT Caesar Boogie RN - 08/01/2013 6:54 PM CST S: back pain B: Pt reports back pain, states the pain is more intense on the R side, with numbness down her R leg. Pt states she has had back pain for the past few months, with it being worse for the past few weeks. Denies changes in B&B. Took tramadol at 1600 A: VS obtained R: MD to see GN SALES CONSULTANT documented in this encounter Plan of Treatment Not on filedocumented as of this encounter Procedures Procedure Name Priority Date/Time Associated Diagnosis Comme nts MRI SPINE LUMBAR STAT 08/01/2013 8:51 PM Resul ts for this W/O CON DESIGN SALES CONSULTANT procedure are i n the results section. EXTRA TUBE-EDTA STAT 08/01/2013 7:25 PM DESIGN SALES CONSULTANT EXTRA TUBE-COAG STAT 08/01/2013 7:25 PM DESIGN SALES CONSULTANT EXTRA TUBE-SST (LAB STAT 08/01/2013 7:25 PM USE ONLY) DESIGN SALES CONSULTANT BASIC METAB PROFILE STAT 08/01/2013 7:25 PM Re sults for this DESIGN SALES CONSULTANT procedure are i n the results section. CBC/DIFF STAT 08/01/2013 7:25 PM Results f or this DESIGN SALES CONSULTANT procedure are i n the results section. EXTRA TUBE PST STAT 08/01/2013 7:25 PM DESIGN SALES CONSULTANT documented in this encounter Results MRI SPINE LUMBAR WO IV CONTRAST (08/01/2013 8:51 PM DESIGN SALES CONSULTANT) Anatomical Region Laterality Modality Spine Magnetic Resonance Specimen (Source) Anatomical Collection Method Collection Time Re ceived Time Location / / Volume Laterality 08/01/2013 8:54 PM DESIGN SALES CONSULTANT Impressions 08/01/2013 9:03 PM DESIGN SALES CONSULTANT IMPRESSION: 1. ??Partial collapse of the disc at L5- S1. ??There is extruded disc posterior to the S1 vertebral body on the right side, which exerts mass effect on the traversing S1 nerve root. 2. ??Moderate foraminal narrowing at L5- S1 bilaterally. Narrative 08/01/2013 9:03 PM DESIGN SALES CONSULTANT EXAM: MRI LUMBAR SPINE WITHOUT CONTRAST, August 01, 2013 CLINICAL DATA: Low-back pain with increa sing severity of symptoms. ??Numbness in the right leg. COMPARISON: None. TECHNIQUE: Sagittal T1 FLAIR, T2, fat sa t T2; axial T1, T2 FINDINGS: Examination interpreted withou t the benefit of lumbar spine radiographs. ??For the purposes of this dictation, it is presumed there are 5 lumbar type vertebral bodies. ??The last substantial d isc space will be described as L5-S1. ?? L5 will be labeled on the sagittal T1- weighted series in PACS. Alignment is anatomic. ??Normal bone mar row signal. ??The conus is located posterior to L2. ??Disc desiccation, most advanced at L5-S1. Low T1 and increased T2 signal in the re nal pelves bilaterally, probably related to parapelvic cysts, but evaluation is incomplete without intravenous contrast. ?? Findings at specific interspaces: L1-2: No significant canal stenosis. ??N eural foramina are adequate. L2-3: No significant canal stenosis. ??N eural foramina are adequate. ??Posterior elements are intact. L3-4: No significant canal stenosis. ??N eural foramina are adequate. ??Mild degenerative change in the facet joints. L4-5: No significant canal stenosis. ??N eural foramina are adequate. ??Degenerative hypertrophy in both of the facet joints. L5-S1: Partial collapse of the disc spac e. ??Central disc protrusion flattens the ventral aspect of the thecal sac. ??Some thickening of the ligamentum flavum. ??There is extruded disc extending posteri or to the S1 vertebral body on the right side, with substantial mass effect on the traversing right S1 nerve root. ??There is moderate stenosis of the neural foramina bilaterally related to the collapse of the disc space and degenerative face t arthropathy. Procedure Note Jefferson Browne MD - 08/01/2013Forma tting of this note might be different from the original. EXAM: MRI LUMBAR SPINE WITHOUT CONTRAST, August 01, 2013 CLINICAL DATA: Low-back pain with increa sing severity of symptoms. Numbness in the right leg. COMPARISON: None. TECHNIQUE: Sagittal T1 FLAIR, T2, fat sa t T2; axial T1, T2 FINDINGS: Examination interpreted withou t the benefit of lumbar spine radiographs. For the purposes of this dictation, it is presumed there are 5 lumbar type vertebral bodies. The last substantial disc space will be described as L5-S1. L5 will be labeled o n the sagittal T1-weighted series in PACS. Alignment is anatomic. Normal bone marro w signal. The conus is located posterior to L2. Disc desiccation, most advanced at L5-S1. Low T1 and increased T2 signal in the re nal pelves bilaterally, probably related to parapelvic cysts, but evaluation is incomplete without intravenous contrast. Findings at specific interspaces: L1-2: No significant canal stenosis. Blanca ral foramina are adequate. L2-3: No significant canal stenosis. Blanca ral foramina are adequate. Posterior elements are intact. L3-4: No significant canal stenosis. Blanca ral foramina are adequate. Mild degenerative change in the facet joints. L4-5: No significant canal stenosis. Blanca ral foramina are adequate. Degenerative hypertrophy in both of the facet joints. L5-S1: Partial collapse of the disc spac e. Central disc protrusion flattens the ventral aspect of the thecal sac. Some thickening of the ligamentum flavum. There is extruded disc extending posterior to the S1 vertebral body on the right side, with s ubstantial mass effect on the traversing right S1 nerve root. There is moderate stenosis of the neural foramina bilaterally related to the collapse of the disc space and degenerative facet arthropathy. IMPRESSION: 1. Partial collapse of the disc at L5-S1 . There is extruded disc posterior to the S1 vertebral body on the right side, which exerts mass effect on the traversing S1 nerve root. 2. Moderate foraminal narrowing at L5-S1 bilaterally. Frank Dunn MD MRI ORDERABLE Extra Tube PST (Lab Use Only) (08/01/2013 7:25 PM DESIGN SALES CONSULTANT) Specimen Anatomical Collection Method Collection Time Receive d Time (Source) Location / / Volume Laterality Blood specimen Collection / 08/01/2013 7:25 PM 014 7:34 (specimen) Unknown DESIGN SALES CONSULTANT PM DESIGN SALES CONSULTANT Frank Dunn MD CHEMISTRY ORDERABLE Performing Organization Address City/State/ZIP Code Phon e Number [address] [address] Extra Tube-SST (Lab Use Only) (08/01/2013 7:25 PM DESIGN SALES CONSULTANT) Specimen Anatomical Collection Method Collection Time Receive d Time (Source) Location / / Volume Laterality Blood specimen Collection / 08/01/2013 7:25 PM 014 7:33 (specimen) Unknown DESIGN SALES CONSULTANT PM DESIGN SALES CONSULTANT Frank Dunn MD CHEMISTRY ORDERABLE Performing Organization Address [facility] kenney Reaves [facility] [address] [place] [address] Extra Tube-EDTA (Lab Use Only) (08/01/2013 7:25 PM DESIGN SALES CONSULTANT) Specimen Anatomical Collection Method Collection Time Receive d Time (Source) Location / / Volume Laterality Blood specimen Collection / 08/01/2013 7:25 PM 014 7:33 (specimen) Unknown DESIGN SALES CONSULTANT PM DESIGN SALES CONSULTANT Frank Dunn MD HEMATOLOGY ORDERABLE Performing Organization Address [facility] Code [facility] kenney Reaves [facility] [address] [place] [address] Extra Tube-Coag (Lab Use Only) (08/01/2013 7:25 PM DESIGN SALES CONSULTANT) Specimen Anatomical Collection Method Collection Time Receive d Time (Source) Location / / Volume Laterality Blood specimen Collection / 08/01/2013 7:25 PM 014 7:33 (specimen) Unknown DESIGN SALES CONSULTANT PM DESIGN SALES CONSULTANT Frank Dunn MD COAGULATION ORDERABLE Performing Organization Address [facility] kenney Reaves [facility] [address] [place] [phone] (ABNORMAL) Basic Metabolic Profile (08/01/2013 7:25 PM DESIGN SALES CONSULTANT) [facility] Time Signature SODIUM 139 136 - 145 08/01/2013 [place] mMol/L 7:48 PM DESIGN SALES CONSULTANT LABORATORY POTASSIUM 4.4 3.5 - 5.1 08/01/2013 [place] mMol/L 7:48 PM DESIGN SALES CONSULTANT LABORATORY CHLORIDE 102 98 - 107 08/01/2013 [place] mMol/L 7:48 PM DESIGN SALES CONSULTANT LABOR[facility]ORY CARBON DIOXIDE 30 21 - 32 08/01/2013 [place] mMol/L 7:48 PM DESIGN SALES CONSULTANT LABORATORY BUN (UREA 16 7 - 18 08/01/2013 [place] NITRO) mg/dL 7:48 PM DESIGN SALES CONSULTANT LABORATORY CREATININE 1.21 0.60 - 08/01/2013 [place] 1.30 mg/dL 7:48 PM DESIGN SALES CONSULTANT LABORATORY EST GFR 44 (L) >60 mL/min 08/01/2013 [place] (CKD-EPI) 7:48 PM DESIGN SALES CONSULTANT LABORATORY EST GFR IF 53 (L) >60 mL/min 08/01/2013 [place] AM 7:48 PM DESIGN SALES CONSULTANT LAB[facility]ORY GLUCOSE 102 (H) 60 - 100 08/01/2013 [place] mg/dL 7:48 PM DESIGN SALES CONSULTANT LABORATORY CALCIUM, SERUM 9.2 8.5 - 10.1 08/01/2013 [place] mg/dL 7:48 PM DESIGN SALES CONSULTANT LABOR[facility]ORY ANION GAP 7.0 0.0 - 15.0 08/01/2013 [place] mMol/L 7:48 PM DESIGN SALES CONSULTANT LABORATORY Specimen Anatomical Collection Method Collection Time Receive d Time (Source) Location / / Volume Laterality Blood specimen Collection / 08/01/2013 7:25 PM 014 7:34 (specimen) Unknown DESIGN SALES CONSULTANT PM DESIGN SALES CONSULTANT Frank Dunn MD CHEMISTRY ORDERABLE Performing Organization Address City/State/ZIP Code Phon e Number [facility] [address] [place] [address] CBC w/diff (08/01/2013 7:25 PM DESIGN SALES CONSULTANT) P athologist Signature WBC 7.9 4.3 - 10.8 08/01/2013 [place] K/uL 7:42 PM DESIGN SALES CONSULTANT LABORATORY RBC 4.43 4.20 - 08/01/2013 [place] 5.40 M/uL 7:42 PM DESIGN SALES CONSULTANT LABORATORY HEMOGLOBIN 14.2 12.0 - 08/01/2013 [place] 16.0 gm/dL 7:42 PM DESIGN SALES CONSULTANT LABORATORY HEMATOCRIT 41.5 36.0 - 08/01/2013 [place] 48.0 % 7:42 PM DESIGN SALES CONSULTANT LABORATORY MCV 94 80 - 100 08/01/2013 [place] fl 7:42 PM DESIGN SALES CONSULTANT LABORATORY MCH 32 27 - 33 pg 08/01/2013 [place] 7:42 PM DESIGN SALES CONSULTANT LABORATORY MCHC 34 33 - 36 08/01/2013 [place] gm/dL 7:42 PM DESIGN SALES CONSULTANT LABORATORY RDW 13.2 11.5 - 08/01/2013 [place] 14.5 % 7:42 PM DESIGN SALES CONSULTANT LABORATORY PLATELET COUNT 255 150 - 400 08/01/2013 [place] K/uL 7:42 PM DESIGN SALES CONSULTANT LABORATORY MPV 11.9 6.5 - 12.0 08/01/2013 [place] 7:42 PM DESIGN SALES CONSULTANT LABORATORY PMN % 58.3 % 08/01/2013 [place] 7:42 PM DESIGN SALES CONSULTANT LAB[facility]ORY IG% 0.4 <=1.0 % 08/01/2013 [place] 7:42 PM DESIGN SALES CONSULTANT LABORATORY Comment: Immature granulocytes include m etamyelocytes, myelocytes, and promyelocytes. LYMPH % 31.5 % 08/01/2013 7:42 PM DESIGN SALES CONSULTANT [facility] MONO % 7.4 % 08/01/2013 7:42 PM DESIGN SALES CONSULTANT [facility] EOS % 2.5 % 08/01/2013 7:42 PM DESIGN SALES CONSULTANT [facility] BASO % 0.3 % 08/01/2013 7:42 PM DESIGN SALES CONSULTANT [facility] PMN ABSOLUTE 4.59 1.80 - 7.80 K/uL 08/01/2013 7:42 P M [facility] IG ABSOLUTE 0.03 K/uL 08/01/2013 7:42 PM DESIGN SALES CONSULTANT [facility] Comment: Immature granulocytes include m etamyelocytes, myelocytes, and promyelocytes. LYMPH ABSOLUTE 2.48 1.00 - 4.00 K/uL 08/01/2013 7:42 PM DESIGN SALES CONSULTANT [facility] MONO ABSOLUTE 0.58 0.00 - 1.00 K/uL 08/01/2013 7:42 PM [facility] EOS ABSOLUTE 0.20 0.00 - 0.45 K/uL 08/01/2013 7:42 P M [facility] BASO ABSOLUTE 0.02 0.00 - 0.20 K/ul 08/01/2013 7:42 PM [facility] Specimen Anatomical Collection Method Collection Time Receive d Time (Source) Location / / Volume Laterality Blood specimen Collection / 08/01/2013 7:25 PM 014 7:33 (specimen) Unknown DESIGN SALES CONSULTANT PM DESIGN SALES CONSULTANT Frank Dunn MD HEMATOLOGY ORDERABLE Performing Organization Address City/State/ZIP Code Phon e Number [facility] [address] [place] [address] documented in this encounter Visit Diagnoses Diagnosis Low back pain - Primary Lumbago Sciatica documented in this encounter Administered Medications Inactive Administered Medications - up to 3 most recent administrations Medication Order MAR Action Action Date Dose Rate Site HYDROmorphone (DILAUDID) syringe Given 08/01/2013 7:38 PM DESIGN SALES CONSULTANT 0. 5 mg 0.5 mg 0.5 mg, Intravenous, EVERY 15 MINUTES NEEDED, 3 doses, Starting on 08/01/13 at 1915, Until 08/02/13 at 0643, pain LORazepam (ATIVAN) injection (conc: 2 mg/mL) 1 Given 0 08/01/2013 8:09 PM DESIGN SALES CONSULTANT 1 mg mg 1 mg, Intravenous, ONCE NEEDED, 1 dose, Starting on 08/01/13 at 1918, Until 08/01/13 at 2009, anxiety ondansetron (ZOFRAN) injection (conc: 2 mg/mL) Given 0 08/01/2013 7:38 PM DESIGN SALES CONSULTANT 4 mg 4 mg 4 mg, IV Push, ONCE, 1 dose, On 08/01/13 at 1930 documented in this encounter Active and Recently Administered Medications Times are shown in DESIGN SALES CONSULTANT. Scheduled Medication Order 07/31/2013 08/01/2013 08/02/2013 ondansetron (ZOFRAN) injection (conc: 2 mg/mL) 4 mg (COMPLET ED) 1937 (Given - Provider: Cisco Gutierrez, RN) 4 mg, IV Push, ONE TIME DOSE, 1 dose, 08/01/13 at 1930 PRN Medication Order 07/31/2013 08/01/2013 08/02/2013 HYDROmorphone (DILAUDID) syringe 0.5 mg (CANCELED) 1937 (Given - Provider: Cisco Gutierrez, MADELYN) 0.5 mg, Intravenous, EVERY 15 MINUTES NEEDED, 3 doses, Starting 08/01/13 at 1915, Until 08/02/13 at 0643, Pain LORazepam (ATIVAN) injection (conc: 2 mg/mL) 1 mg (COMPLETED ) 2008 (Given - Provider: Caesar Boogie, MADELYN) 1 mg, Intravenous, ONE TIME DOSE NEED ED, 1 dose, Starting 08/01/13 at 1918, Until Discontinued, Anxiety documented in this encounter Care Teams Television Cable Installer Relationship Specialty Start Date End Date None, PCP - General 05/31/09 08/25/13 Clinic, No Primary PCP - Primary Care Clinic 05/31/09 08/29/13 documented as of this encounter
--- OUTSIDE RECORDS SUMMARY | 2022-02-13 11:42 | XMS_ITS | Encounter Summary ---
:1940 Author Organization [facility] Address [address] [place] [id number] Care Team Providers Name Role Phone Geni, Primary Care Provider Unavailable Clinic, No Primary Unavailable Unavailable Reason for Visit Reason Comments Back Pain Encounter Details Date Type Department Care Team Description 08/05/2013 Emergency [facility] Lexi Helms MD Emergency Care [place] [address] [employer] [place] [address] [place], [place] [address] [address] [place] [address] [phone] (Wo rk) Social History Tobacco Use Types Packs/Day Years Used Date Smoking Tobacco: Every Day Cigarettes 1 Alcohol Use Standard Drinks/Week Comments No 0 [...] Sign Reading Time Taken Comments Blood Pressure 120/64 08/05/2013 3:30 PM SCREEN MAKING SUPERVISOR Pulse 75 08/05/2013 3:30 PM SCREEN MAKING SUPERVISOR Temperature - - Respiratory Rate - - Oxygen Saturation 91% 08/05/2013 3:30 PM SCREEN MAKING SUPERVISOR Inhaled Oxygen Concentration - - Weight - - Height - - Body Mass Index - - documented in this encounter Discharge Instructions AttachmentsThe following attachments cannot be sent through Care Everywhere.BACK EXERCISES, [id number] (GEORGIAN)SCIATICA (GEORGIAN)CHRONIC BACK PAIN (GEORGIAN) documented in this encounter Medications at Time of Discharge Medication Sig Dispensed Refills Start Date End Date oxyCODONE-acetaminophen Take 1-2 Tabs by 30 Tab 0 201308/09/2013 (PERCOCET) 5-325 mg Oral mouth every four (4) Tab to six (6) hours as needed for Pain. documented as of this encounter ED Notes Jamie Helms MD - 08/05/2013 3:43 PM CST CC: CHIEF COMPLAINT: Back and right leg pain. HISTORY OF PRESENT ILLNESS: This patient is a very friendly and pleasant, 73-year-old female who presents to the [facility] Emergency Department via triage with her son for the evaluation of back pain and right leg pain. The patient tells me that maybe a month ago she started to have some low back pain. Then it sounds like she was lifting her , it sounds like he has some medical problems, was twisting and kind of tweaked her back at that time. Since that time she had much more severe pain. It has been radiating down her right leg. She has been seen in the emergency department twice. She was last seen here three days ago. At that time she had an MRI of her lumbar spine that did show some lumbar disk herniation with some impingement on the right S1 nerve root. She followed up with an orthopedic surgeon, who arranged for a steroid injection two days ago, which she had. She tells methat the pain has persisted. She has continued to not sleep well. She called the orthopedic surgery clinic today and was directed to the emergency department for pain medications and additional evaluation. On my assessment, she denies any bowel or bladder incontinence. She tells me today the pain radiates all the way down her leg to the dorsum of her foot. No other specific complaints. REVIEW OF SYSTEMS: Twelve point review of systems obtained, negative or noncontributory, with the exception of that noted in the history of present illness. PAST MEDICAL HISTORY: Denies. PAST SURGICAL HISTORY: None reported. SOCIAL HISTORY: The patient does smoke about a pack a day. She does not drink alcohol. FAMILY HISTORY: Noncontributory. MEDICATIONS: Reviewed as per Epic. ALLERGIES: No known drug allergies. PHYSICAL EXAMINATION: INITIAL VITAL SIGNS: Temperature 36.9, blood pressure 110/73, pulse 84, respiratory rate 16, oxygen saturation 96% on room air. CONSTITUTIONAL: The patient is awake and alert. She is very pleasant. She is accompanied by her son.She looks uncomfortable. HEENT: Pupils are equal, round and reactive to light bilaterally. There is no scleral icterus. Oral mucous membranes are moist. NECK: No cervical lymphadenopathy. CARDIOVASCULAR: Regular rate and rhythm. No murmurs, rubs or gallops. RESPIRATORY: Lungs are clear to auscultation bilaterally. GASTROINTESTINAL: Abdomen is soft, nontender and nondistended. There is no rebound or guarding. There is no hepatosplenomegaly. EXTREMITIES: Sensation to light touch is grossly intact bilateral lower extremities. She is able to lift both legs off the bed. Straight leg raise is positive on the right. Reflexes are 2+ and symmetric. EMERGENCY DEPARTMENT COURSE AND MEDICAL DECISION MAKING: The patient was seen and evaluated. I closely reviewed her chart. Here, peripheral IV was inserted. She was given Dilaudid, Robaxin, Zofran and fluids. She tells me she feels much better. I reviewed her MRI. Certainly, her pain distribution seems to fit with impingement of the S1 nerve root. She has no signs or symptoms of cauda equina syndrometoday. Her MRI has no evidence of cord compression. At this point, she feels better. She is already plugged into following up with an orthopedic surgeon for this. That provider has already ordered her a steroid injection. At this point, given that she had an MRI three days ago, she is plugged into the system and is now comfortable, I do not think I have much more to add on an emergent basis. After discussing things with her, we are going to try some Percocet instead of the Vicodin to see if that helps her a little bit more. I have recommended that she follow up with her orthopedic surgeon for further evaluation. She is agreeable to that. She feels comfortable with this plan. She is therefore deemed stable for discharge home. DIAGNOSIS: Sciatica. Jamie Helms MD /RD Dictation ID: [id number] EN MAKING SUPERVISOR Debra Hansen RN - 08/05/2013 3:41 PM CST S: discharge to home B: pt received written and verbal instructions and instymed prescriptions A: pt verbalize understanding of written and verbal instructions R: pt out of department in stable condition. EN MAKING SUPERVISOR [place] España RN - 08/05/2013 1:02 PM CST S: back pain B: pt has chronic right low back pain, had steroid injection Tues, pain is unmanagaeable. Taking steroids, vicodin and a muscle relaxer A: right low back pain into right leg, difficutly bearing weight on right leg EN MAKING SUPERVISOR documented in this encounter Plan of Treatment Not on filedocumented as of this encounter Visit Diagnoses Diagnosis Sciatica - Primary documented in this encounter Administered Medications Inactive Administered Medications - up to 3 most recent administrations Medication Order MAR Action Action Date Dose Rate Site HYDROmorphone (DILAUDID) syringe 1 Given 08/05/2013 2:59 PM SCREEN MAKING SUPERVISOR 1 mg mg 1 mg, Intravenous, EVERY 30 MINUTES NEEDED, 3 doses, Starting on Shannon 08/05/13 at 1325, Until Shannon 08/05/13 at 2155, pain Given 08/05/2013 1:43 PM SCREEN MAKING SUPERVISOR 1 mg methocarbamol (ROBAXIN) 500 mg in sodium Given 08/05/2013 1:55 P M SCREEN MAKING SUPERVISOR 500 mg chloride 0.9 % 50 mL IV piggyback 500 mg, Intravenous, ONCE, 1 dose, On Shannon 08/05/13 at 1330, Administer over 15 Minutes ondansetron (ZOFRAN) injection (conc: 2 mg/mL) Given 0 08/05/2013 1:41 PM SCREEN MAKING SUPERVISOR 4 mg 4 mg 4 mg, IV Push, ONCE, 1 dose, On Shannon 08/05/13 at 1330 sodium chloride 0.9 % IV soln New Bag 08/05/2013 1:40 PM SCREEN MAKING SUPERVISOR 1 ,000 mL 2000 mL/hr 1,000 mL at 2,000 mL/hr, Intravenous, ONCE, 1 dose, On Shannon 08/05/13 at 1330 documented in this encounter Active and Recently Administered Medications Times are shown in SCREEN MAKING SUPERVISOR. Scheduled Medication Order 08/03/2013 08/04/2013 08/05/2013 methocarbamol (ROBAXIN) 500 mg in sodium chloride 0.9 % 50 mL IV piggyback (COMPLETED) 1355 (Given - Provid er: Debra Hansen RN) 500 mg, Intravenous, ONCE, 1 dose, On Th u 08/05/13 at 1330, Administer over 15 Minutes ondansetron (ZOFRAN) injection (conc: 2 mg/mL) 4 mg (COMPLETED) 1341 (Given - Provider: Delbert Junior, MADELYN) 4 mg, IV Push, ONE TIME DOSE, 1 dose, Shannon 08/05/13 at 1330 sodium chloride 0.9 % IV soln 1,000 mL (COMPLETED) 1340 (New Bag - Provider: Delbert Junior RN)1440 (Stopped - Provider: Debra Hansen, MADELYN) 1,000 mL, at 2,000 mL/hr, Intravenous, O NE TIME DOSE, 1 dose, Shannon 08/05/13 at 1330 PRN Medication Order 08/03/2013 08/04/2013 08/05/2013 HYDROmorphone (DILAUDID) syringe 1 mg (CANCELED) 1343 (Given - Provider: Delbert Junior RN)1459 (Given - Provider: Debra Hansen, MADELYN) 1 mg, Intravenous, EVERY 30 MINUTES N EEDED, 3 doses, Starting Shannon 08/05/13 at 1325, Until Shannon 14 at 2155, Pain documented in this encounter Care Teams Clerk Telegraph Service Relationship Specialty Start Date End Date Geni, PCP - General 05/31/09 08/25/13 Clinic, No Primary PCP - Primary Care Clinic 05/31/09 08/29/13 documented as of this encounter
--- OUTSIDE RECORDS SUMMARY | 2022-02-13 11:42 | XMS_ITS | Encounter Summary ---
:1940 Author Organization [facility] Address [address] [place] [id number] Care Team Providers Name Role Phone Geni, Primary Care Provider Unavailable Clinic, No Primary Unavailable Unavailable Reason for Visit Reason Comments Back Pain Encounter Details Date Type Department Care Team Description 07/17/2013 Emergency [facility] [address] [place], [place] [address] Social History Tobacco Use Types [...] documented as of this encounter Discharge Instructions D/C Instructions ScanScanned Doc - 07/19/2013 2:47 PM CST CTOR OF OPERATIONS FOR THERAPY documented in this encounter ED Notes Lashon Dubois RN - 07/17/2013 4:24 PM CST Pt to desk, states, you know, a lot these people are sicker than me, I'll go home. Apologized for wait, pt is understanding and signs out. CTOR OF OPERATIONS FOR THERAPY Lashon Dubois RN - 07/17/2013 3:22 PM CST S: Back pain B: R sided, goes down her leg, for a couple months. A: Reports it is worse today. Taking 5-6 ibuprofen at a time. Limping gait. Given a hot pack in triage. R: Provider to see. CTOR OF OPERATIONS FOR THERAPY documented in this encounter Plan of Treatment Not on filedocumented as of this encounter Visit Diagnoses Not on filedocumented in this encounter Care Teams Plastic Molder Relationship Specialty Start Date End Date None, PCP - General 05/31/09 08/25/13 Clinic, No Primary PCP - Primary Care Clinic 05/31/09 08/29/13 documented as of this encounter
--- OUTSIDE RECORDS SUMMARY | 2022-02-13 11:42 | XMS_ITS | Encounter Summary ---
:1940 Author Organization [facility] Address [address] [place] [id number] Care Team Providers Name Role Phone Geni, Primary Care Provider Unavailable Clinic, No Primary Unavailable Unavailable Reason for Visit Reason Comments Flu Symptoms Encounter Details Date Type Department Care Team Description 05/31/2009 - Emergency [facility] Marleni Choudhury MD [email or web address] [place], [place] [address] 06/01/[address] Rosanna Carrion MD [address] [facility] Rebeca Bill [place] [id number] [place]bec[place] [address] Social History Tobacco Use Types Packs/Day Years Used Date Smoking Tobacco: Every Day Cigarettes 1 Alcohol Use Standard Drinks/Week Comments Yes 0 [...] Sign Reading Time Taken Comments Blood Pressure 115/71 06/01/2009 9:45 AM OIL PROCESS STILLMAN Pulse 53 06/01/2009 9:45 AM OIL PROCESS STILLMAN Temperature 36.4 ??C (97.5 ??F) 06/01/2009 9:45 AM OIL PROCESS STILLMAN Respiratory Rate 14 06/01/2009 9:45 AM OIL PROCESS STILLMAN Oxygen Saturation 93% 06/01/2009 9:45 AM OIL PROCESS STILLMAN Inhaled Oxygen Concentration - - Weight 76.2 kg (167 lb 15.9 oz) 05/31/2009 7:37 PM OIL PROCESS STILLMAN Height 157.5 cm (5' 2) 05/31/2009 7:37 PM OIL PROCESS STILLMAN Body Mass Index 30.73 05/31/2009 7:37 PM OIL PROCESS STILLMAN documented in this encounter Discharge Summaries Rosanna Carrion MD - 06/01/2009 12:59 PM CST [facility] Discharge Summary Patient Name: Jennifer Cole Date of : 1940 Admission Date: 05/31/2009 Discharge Date: 06/01/2009 CC:Primary Care Provider: Malcom Cohen MD Discharge Diagnoses Chest pain, possibly GI URI Discharge Medications Current Discharge Medication List NEW MEDICATIONS acetaminophen (TYLENOL) 325 mg Oral Tab Take 1-2 Tabs by mouth every 4 (four) hours as needed. Qty: 0 Refills: 0 famotidine (PEPCID) 40 mg Oral Tab Take 1 Tab by mouth daily. Qty: 1 mo Refills: 2 UNREVIEWED MEDICATIONS GUAIFENESIN/PHENYLEPHRINE HCL (MUCINEX COLD ORAL) Take by mouth. NAPROXEN SODIUM (ALEVE ORAL) Take by mouth. ibuprofen (MOTRIN) 400 mg Oral Tab Take by mouth every 4 (four) hours as needed. Review of patient's allergies indicates no known allergies. Disposition She will be discharged to home. Follow Up Discharge Procedure Orders Follow Up June 05 at 1:40, please arrive 10-15 min early [place] location Which provider? MALCOM COHEN [[id number]] Provider / Clinic Phone Number? [phone] Activity as tolerated Discharge Instructions Return to ER if symptoms worsen Discharge Disposition? Returning Home/Self Care Expected discharge date? 06/01/2009 Pending Studies/Labs Final echo reading Studies and Procedures Completed Echocardiogram: normal Hospital Course This 69 y.o. female was admitted to [facility] on 05/31/2009 with complaint of chest tightness for 1 week, cough. Please see Admission History and Physical by me for further admitting details. Her Chest tightness has completely resolved. It did have a lot of atypical features. She had Normal EKG,negative troponin x 3. Since pain has been ongoing for 1 week practically nonstop would suspect elevation in troponin if had ongoing angina. Little difficult sorting out symptoms. Could only do echo, but it was normal. If she has recurrence of her symptoms than would do a nuclear stress test ( imaging on echo was not perfect). I also instructed her to return to ER if symptoms worsen.Did discharge with pepcid, does have financial concerns. I did set up a follow up appointment for patient for next week . Discharge Condition The patient is being discharged in stable condition with the above mentioned discharge diagnosis, medications and follow up. She is alert and in no acute distress. BP 115/71 Pulse 53 Temp 97.5 ??F (36.4 ??C) Resp 14 Ht 5' 2 Wt 167 lb 15.9 oz (76.2 kg) SpO2 93%Last 1 Encounter Wt Readings: Date Wt 05/31/2009 167 lb 15.9 oz (76.2 kg) Heart is regular, lungs are clear and abdomen is soft and nontender. The discharge plan was discussed with the patient and questions answered. Total time today was 30 minutes. Rosanna Carrion MD PROCESS STILLMAN documented in this encounter Discharge Instructions Discharge InstructionsMaricarmen Richardson RN - 06/01/2009 1:[address] Carrion made an appt for you with Dr. Cohen at [facility]. This appt is on Jun.05 at 1:40 pm. Please arrive at 1:25 pm for registration. This will be to arrange for ongoing care as a primary provider and to arrange for outpatient stress test appt. Clinic number is [phone] should you need to contact them. Please return to ED/hospital for return of chest pain. May use antacid in addition to Pepcid for heartburn pain. Call 911 for pain not relieved by antacid within 15 mins. Smoking and second-hand smoke exposure: If you or anyone in your home smokes, we strongly recommend that you stop for your health and that of your family. Please talk with your health care provider about your best treatment options. No matter what your age or how long you've smoked, quitting will help you live longer. For further assistanceplease call the [employer] Helpline at 2-(431)-913-WFXK or go to their website www.[employer]. Discharge Procedure Orders Follow Up June 05 at 1:40, please arrive 10-15 min early [facility] Which provider? LAURA MALCOM P. [[id number]] Provider / Clinic Phone Number? [phone] Activity as tolerated Discharge Instructions Return to ER if symptoms worsen Discharge Disposition? Returning Home/Self Care Expected discharge date? 06/01/2009 IV access removed: Yes Immunizations given: NA Valuables/Belongings returned: Yes Meds from Home returned: NA PROCESS STILLMAN documented in this encounter Progress Notes Maricarmen Richardson RN - 06/01/2009 3:04 PM CST Jennifer Cole 1940 [phone] P: Discharge A: Discharged via wheelchair to home at 1350 escorted by nursing services manager I: Discharge information and arrangements included: review of written discharge instructions, prescriptions sent with patient, belongings list completed. R:Patient expressed understanding of information.. PROCESS STILLMAN Verito Guzman RDCS - 06/01/2009 11:17 AM CST Echo completed. The final report can be found under the cardio tab from chart review. Verito Guzman RDCS. PROCESS STILLMAN Annie Anguiano RN - 05/31/2009 10:20 PM CST P. Admission A. Condition on Admit: alert. Patient/Family Concerns: Patient expressed concern about diagnosis. I. Initial Interventions included: notified MD of patient arrival, reassured patient and family thatcardiac monitoring would be done over night along with labs. Orientation to Unit: Patient oriented to how to call for help, name of assigned career manager, hourly rounding procedures, unit and plan of care. R. Patient expressed understanding of information.. PROCESS STILLMAN RT Ayaan - 05/31/2009 4:26 PM CST Diagnosis: SOB Smoking history: 1ppd Home oxygen use:no Home bronchodilator use: no Hospital bronchodilator use: Duoneb X1 Response to bronchodilator therapy: BS CTA pre and post brochodilator Breathing pattern: regular and labored during treatment Breath sounds: BS CTA pre and post brochodilator Current oxygen need: no Oxygen saturation: 99 Current xray: clear Patient continues to be somewhat SOB pre and post treatment; no response to bronchodilator. PROCESS STILLMAN documented in this encounter H&P Notes Rosanna Carrion MD - 05/31/2009 8:34 PM CST [facility] Admission History and Physical Patient Name: Jennifer Cole Admission Date/Time: 05/31/2009 3:31 PM Admitting provider: Rosanna Carrion MD Primary Care Provider: Geni Wall Chief Complaint This 69 y.o. female presents with complaint of chest pressure. Source of Information: Patient History of Present Illness This 69 y.o. female who has not seen a doctor for many years. She has noted chest discomfort, tightness that started about 1 week ago. It is epigastric and radiates to under bilateral breasts. At its worse she rates it 4/10, no palpitations no diaphoresis, no other associated symptoms.It seems that she was never without discomfort, got better and worse but never really went away. Can have this at rest and also on exertion, but nothing makes this better or worse, really not consistent. Has stairs at home and chest discomfort is not always worse with This. While in the room, it seemed that laying down made discomfort better. Also perhaps eating makers this worse. In ER she got 1 SL NTG that dropped the pressure but did not make a big difference in her chest tightness. She also has been a little short of breath lately, has had increased cough and has been on cough medication. No fever, has had someChills in past few days. Family has gone through cold symptoms. No myalgias. No previous history of heart disease. Patient has been under a lot of stress, is awaiting kidney transplant, 1 daughter is dying of breast Ca, 1 son with pulmonary hypertension. Past Medical History Diagnosis Date ??? Heartburn and history of ulcer in past Past Surgical History Procedure Date ??? Hx cholecystectomy Allergies Review of patient's allergies indicates no known allergies. Medications Prescriptions prior to admission Medication Sig Dispense Refill ??? GUAIFENESIN/PHENYLEPHRINE HCL (MUCINEX COLD ORAL) Take by mouth. ??? NAPROXEN SODIUM (ALEVE ORAL) Take by mouth. ??? ibuprofen (MOTRIN) 400 mg Oral Tab Take by mouth every 4 (four) hours as needed. Family History patient is adopted so does not know much of parents' history, mother might have had fluid around the heart 1 daughter is dying of breast Ca, 1 son is ill with pulmonary HTN Social History History Social History ??? Marital Status: Spouse Name: N/A Number of Children: N/A ??? Years of Education: N/A Occupational History ??? Not on file. Social History Main Topics ??? Tobacco Use: Yes -- 1.0 packs/day ??? Alcohol Use: Yes occasional ??? Drug Use: No ??? Sexually Active: Other Topics Concern ??? Not on file Social History Narrative ??? No narrative on file Review of Systems A comprehensive review of systems was obtained and the restis negative other than what is mentioned in the history of present illness. Physical Exam General Appearance: Pt is alert and oriented x3, NAD, pleasant and conversive, speaking in full sentences BP 105/73 Pulse 80 Temp 97.6 ??F (36.4 ??C) Resp 20 Ht 5' 2 Wt 167 lb 15.9 oz (76.2 kg) SpO2 97%Body mass index is 30.73 kg/(m^2). HEENT: EOMI, and PERRL, sclera nonicteric. Moist mucus membranes. Head is atraumatic. NECK: supple, no adenopathy, no thyromegaly, RESPIRATORY: Lungs are clear to ascultation with normal vesicular breath sounds bilaterally. CARDIOVASCULAR:RRR, normal S1/S2, regular rate and rhytm,no rubs gallops or murmurs appreciated. GASTROINTESTINAL: Abdomen is soft, non tender, with normal bowel sounds, no masses or hepatosplenomegaly noted MUSCULOSKELETAL: Normal muscle bulk and tone. SKIN: Warm, dry, no rashes. NEUROLOGIC: intact EXTREMITIES:no clubbing/ cyanosis/ or edema, moves all extremities Laboratory Data Recent Labs Basename 05/31/09 1640 ??? SODIUM 136 ??? POTASSIUM 3.9 ??? CHLORIDE 102 ??? CARBONDIOXI 24 ??? ANIONGAP 10.2 ??? GLUCOSE 103 ??? BUNUREANRO 20* ??? CREATININE 0.9 ??? CALCIUMSERUM -- ? ? ESTGFRMDRD > 60 ? ? ESTGFRIFBLCK > 60 Recent Labs Basename 05/31/09 1640 ??? WBC -- ??? RBC 4.53 ??? HEMOGLOBIN 14.2 ??? HEMATOCRIT 40.9 ??? MCV 90 ??? MCH 31 ??? RDW 12.6 ??? PLATELETCT 247 D-dimer < 200 Troponin # 1 < 0.05 EKG: I have personally reviewed the EKG it shows sinus, no acute ST t wave changes Radiology: I have personally reviewed the patients CXR and is normal Assessment/Plan 69 y.o. female presenting with chest tightness for 1 week. Chest tightness: cardiac vs pulmonary vs GI. Patient has normal EKG and negative troponin. Since pain has been ongoing for 1 week practically nonstop would suspect elevation in troponin if had ongoing angina. Little difficult sorting out symptoms. Will cycle troponins, check stress echo in AM if has negative troponins. If trops are positive than start full dose anticoagulation , have cards see and transfer for further cardiac work up.I hear no wheezing but will have nebs available, also with historyof ulcer will place on PPI. Prophylaxis: ambulate, if stays longer than 1 day will start Sq lovenox Family communication:discussed with family at length in room Time: 70 minutes was spent in evaluation and management of this patient. Rosanna Carrion MD Between 8 AM & 6 PM ask for the rounding MD Between 6PM & 8AM ask for the central communications specialist MD PROCESS STILLMAN documented in this encounter Procedure Notes Marleni Choudhury MD - 06/07/2009 1:34 PM CSTAssociated Order(s): ELECTROCARDIOGRAM; ELECTROCARDIOGRAM PROCESS STILLMAN documented in this encounter Nursing Notes RT Klarissa - 05/31/2009 12:00 AM CST Problem: Oxygenation Goal: Improved oxygenation Outcome: Completed Date Met: 06/01/09 Pt arrived to [facility] on 2 liters nasal cannula. Sats remain above 92% on room air. Nasal cannula D/C'd per protocol. Sats now on room air are 98-95%. Pt also assessed for neb treatment. Lung sare clear. Pt claims no SOB. Pt aware of PRN neb if needed. PROCESS STILLMAN documented in this encounter ED Notes Marleni Choudhury MD - 06/01/2009 12:18 AM OIL PROCESS STILLMAN CC: Rosanna Carrion MD Admitting Physician: Rosanna Carrion MD CHIEF COMPLAINT: Flu-like symptoms. MODE OF ARRIVAL: Ambulatory. HISTORY OF PRESENT ILLNESS: This patient is a 69-year-old female with past medical history significant only for GERD who presents to the emergency department for evaluation of flu-like symptoms. The patient states that she has been sick for about a week. She initially thought she had a sinus infection as she has lots of sinus problems, however, that seems to have gotten better. Yesterday she lost her voice. For the past week she has had chest tightness that has been present more often than not, as well as significant shortness of breath. The shortness of breath is very new for her and her family also notes that she is breathing harder than she normally ever does. Shortness of breath gets a littlebit better when she rests, but definitely get worse when she walks. She denies any pain radiating toher neck, jaw, or arms. She has not had any nausea or vomiting. She does feel a little bit lightheaded. She really has not had significant cough. She has not had any fevers or chills. She does smoke cig arettes, however, has never been told she has emphysema or bronchitis. She states that sometimes shehas a little bit of intermittent wheezing. She has been under a lot of stress recently and has a daughter that is dying of cancer. As far as her coronary artery disease risk factors, she does have a positive tobacco use as well as her age. She was adopted and does not know much about her mother. Please refer to [facility] for past medical history, meds, allergies and social history. REVIEW OF SYSTEMS: Please refer to the HPI. All other review of systems were discussed and were negative. PHYSICAL EXAMINATION: VITAL SIGNS: Blood pressure 129/91, heart rate 68, respiratory rate 22, temperature 97.5, O2 sats 98% on room air. GENERAL: The patient is a middle aged female who does appear to be dyspneic but in no obvious respiratory distress. HEENT: Pupils are equal and reactive to light. Extraocular motions are intact. Oropharynx is clear with moist mucous membranes. NECK: Supple. No lymphadenopathy or tenderness. No JVD. HEART: Regular rate and rhythm. Normal S1 and S2. No murmurs heard. LUNGS: She does have good breath sounds throughout without any rhonchi, rales or wheezes. BACK: No CVA tenderness bilaterally. ABDOMEN: Positive bowel sounds, soft, mild epigastric tenderness, no rebound or guarding. EXTREMITIES: No cyanosis, clubbing or edema. No calf tenderness or asymmetry. Dorsalis pedis pulsesare palpable and equal bilaterally. SKIN: No rash or acute skin changes. NEUROLOGIC: Alert and oriented x3. Nonfocal neuro exam. EMERGENCY DEPARTMENT COURSE: Nursing notes were reviewed and the patient was examined as above. As far as the differential, I did consider cardiac ischemia, COPD, pneumonia, viral etiology, PE and CHF. I did think aortic dissection was unlikely without any significant tearing or ripping pain. No painin her back, good peripheral pulses. An EKG done shortly after arrival showed a normal sinus rhythm with a rate of [address]-T wave changes. This was entered into E-scribe. Portable chest x-ray showed no acute cardiopulmonary pathology, no obvious infiltrate or significant edema, no cardiomegaly. The patient did receive a nebulizer treatment early in her stay which really did not change her symptoms at all. Her labs showed a normal CBC, normal electrolyte panel, a BUN which is slightly elevated at 20 and a normal creatinine. Her magnesium is 2.2, troponin less than 0.05 and her D-dimer wasnegative at less than 200. At this point the etiology of her symptoms really was not entirely clear, although she was definitely tachypneic without an obvious reason. She was given a little nitroglycerin here in the emergency department which did improve her symptoms. I did think she needed to be admitted to the hospital overnight for cardiac monitoring, serial troponins and a probable stress test in the morning. She may alsoneed some pulmonary function testing down the road. Dr. Carrion agreed to admit the patient. She was given an aspirin in the emergency department and was pain-free prior to going to the floor. Her shortness of breath had also significantly improved. FINAL DIAGNOSIS: Chest pain and shortness of breath. DISPOSITION: She will be admitted to telemetry under observation status in fair but stable condition. Complex medical management was used in the care of this patient. Marleni Choudhury MD /GABRIEL Dictation ID: [id number] PROCESS STILLMAN Harika Sims RN - 05/31/2009 7:17 PM CST Pt resting on cart- family at bedside. States pain free now. Vss BP 105/64 Pulse 66 SpO2 94% to floor via cart with RN and EMT PROCESS STILLMAN Harika Sims RN - 05/31/2009 4:53 PM CST Pt resting on cart. Family at bedside. Tests complete at this time. Awaits test results. Call reina dayana garner Sims RN - 05/31/2009 4:27 PM CST EMT placing SL, obtaining blood for lab tests. EKG complete. CTM. BP 104/65 Pulse 66 SpO2 97% PROCESS STILLMAN Harika Sims RN - 05/31/2009 3:28 PM CST Pt co cough and sob x 1 week. Non-productiive. Also co chest tightness x 1 week,. PROCESS STILLMAN documented in this encounter Miscellaneous Notes HIM Scans - Scanned Doc - 06/05/2009 3:30 PM OIL PROCESS STILLMAN HIM Scans - Scanned Doc - 06/05/2009 3:30 PM OIL PROCESS STILLMAN documented in this encounter Plan of Treatment Not on filedocumented as of this encounter Procedures Procedure Name Priority Date/Time Associated Comments Diagnosis ELECTROCARDIOGRAM 06/07/2009 1:34 Results for this PM OIL PROCESS STILLMAN procedure are i n the results section. TROPONIN I DIOMEDES 06/01/2009 9:44 Results for this PM OIL PROCESS STILLMAN procedure are i n the results section. HVC ECHOCARDIOGRAM Routine 06/01/2009 11:17 Resul ts for this AM OIL PROCESS STILLMAN procedure are i n the results section. LIPID PROFILE CASCADE Routine 06/01/2009 3:45 Res ults for this FASTING AM OIL PROCESS STILLMAN procedure are i n the results section. TROPONIN I STAT 05/31/2009 9:44 Results for this PM OIL PROCESS STILLMAN procedure are i n the results section. GLUCOSE, RANDOM STAT 05/31/2009 9:44 Results f or this PM OIL PROCESS STILLMAN procedure are i n the results section. MAGNESIUM STAT 05/31/2009 4:40 Results for this PM OIL PROCESS STILLMAN procedure are i n the results section. TROPONIN I STAT 05/31/2009 4:40 Results for this PM OIL PROCESS STILLMAN procedure are i n the results section. GLUCOSE, RANDOM STAT 05/31/2009 4:40 Results f or this PM OIL PROCESS STILLMAN procedure are i n the results section. CREATININE EGFR STAT 05/31/2009 4:40 Results f or this PM OIL PROCESS STILLMAN procedure are i n the results section. ELECTROLYTES STAT 05/31/2009 4:40 Results for this PM OIL PROCESS STILLMAN procedure are i n the results section. BUN (UREA NITROGEN) STAT 05/31/2009 4:40 Resul ts for this PM OIL PROCESS STILLMAN procedure are i n the results section. CBC STAT 05/31/2009 4:40 Results for this (HGB,HCT,WBC,RBC,PLATELET PM OIL PROCESS STILLMAN pr ocedure are in ) the results section. D DIMER QUANT STAT 05/31/2009 4:40 Results for this PM OIL PROCESS STILLMAN procedure are i n the results section. XR CHEST AP PORT STAT 05/31/2009 4:08 Results for this PM OIL PROCESS STILLMAN procedure are i n the results section. documented in this encounter Results ELECTROCARDIOGRAM (06/07/2009 1:34 PM OIL PROCESS STILLMAN) Specimen (Source) Anatomical Location Collection Method / Collectio n Time Received Time / Laterality Volume Narrative This result has an attachment that is no t available. Procedure Note Marleni Choudhury MD - 06/07/2009 1:3 4 PM OIL PROCESS STILLMAN Marleni Choudhury MD EKG ORDERABLE TROPONIN I (06/01/2009 9:44 PM OIL PROCESS STILLMAN)Only the most recent of3 resultswithin the time period is included. P athologist Signature TROPONIN-I < 0.04 <0.05 ng/mL [facility] Specimen Anatomical Collection Method Collection Time Receive d Time (Source) Location / / Volume Laterality Blood specimen 06/01/2009 9:44 PM 009 3:53 (specimen) OIL PROCESS STILLMAN AM OIL PROCESS STILLMAN Rosanna Carrion MD CHEMISTRY ORDERABLE Performing Organization Address City/State/ZIP Code Phon e Number [facility] [address] [place] [address] [facility] ECHOCARDIOGRAM (06/01/2009 11:17 AM OIL PROCESS STILLMAN) [facility] Method Time Signature REPORT Transthoracic Echocardiography Report (TTE) TEST Demographics REPORT TEST REPORT Patient # ?[id number] ?Gender ??Female TEST Visit # ?[id number] ? Race ?Unknown SSN ?[id number] ?Height ??62 Inches Date of ?1940 ? Weight ??167 Pounds Accession number ? [id number] ?BMI ? 30.5 kg/m^2 Study Date ? 06/01/2009 ? BSA ? 1.8 m^2 Interpreting physician ? Dustin Martinez MD ? Referring physician ?Rosanna Carrion MD ? Primary Physician ? Supervisor [facility] ?Venus mariannejelly [facility] ? Type of study: TTE procedure: Doppler , Color Doppler, ECHOCARDIOGRAM Patient status: RoutineHR: 53 bpmBP: 111 /73 mmHg Indications: Chest Pain Conclusions Summary Normal LV size and systolic function. The visually estimated EF is 60%. Mild concentric LVH. Findings Left ventricle Normal LV size and systolic function. The visually estimated EF is 60%. No obvious wall motion abnormalities, but endocardial defin ition is limited. Mild concentric LVH. Normal diastolic function. Left atrium Normal LA size. Right ventricle Normal right ventricle size and systolic function. Right atrium Normal RA size. Aortic valve Structurally normal aortic valve. No aortic stenosis. No aortic regurgitation. Aortic root size is normal. Mitral valve Mitral annular calcification. Mild mitral regurgitation. Tricuspid valve Mild to moderate tricuspid regurgitation. The pulmonary artery systolic pressure is estimated at 19 m mHg plus right atrial pressure. The IVC is normal in size and responds to respiration. Pulmonic valve Pulmonic valve is not well visualized. Pericardial / Pleural Summary No pericardial effusion. Shunts / Masses Summary No evidence of shunts/masses within the scope of this study ; however, no bubble study was performed. Rhythm / Procedure Rhythm is sinus rhythm. Image quality is adequate. Signature M-Mode / 2D / Volume Measurements Left ventricle LVEDd: 4.8 cm ? LVE Sd: 3.2 cm IVSEd: .9 cm LVPWd: .8 cm ? FS: 33.33 % Left atrium LA Transverse: 3.4 cm ? LA volu me: 33 ml ? LA index: 18 ml/m^2 Right atrium RA Transverse: 3.1 cm RA Longitudinal: 3.8 cm Aorta Sinotubular Ridge: 2.4 cm ? Sinuses: 2.6 cm Miscellaneous ? LVOT: 1.9 cm Doppler Measurements: Mitral valve MV Peak E*wave: 89 cm/s ? MV A duration: 133 msec MV Peak A*wave: 86 cm/s ? MV E/A ratio: 1 ? MV Deceleration time: 252 msec Tissue doppler ? E/E':8 Aortic valve AV peak gradient:2 mmHg Tricuspid valve TV peak gradiant:19 mmHg Specimen (Source) Anatomical Collection Method Collection Time Re ceived Time Location / / Volume Laterality 06/01/2009 11:35 AM [facility] Narrative This result has an attachment that is no t available. Rosanna Carrion MD ECHO ORDERABLE Performing Organization Address City/State/ZIP Code Phon e Number TEST (ABNORMAL) LIPID PROFILE FASTING (06/01/2009 3:45 AM [facility]) [facility] gist Method Time Signature CHOLESTEROL 208 (H) 0 - 199 [place] mg/dL LABORATORY TRIGLYCERIDES 95 0 - 149 [place] mg/dL LABORATORY LDL CHOL, CALC 127 (H) 0 - 100 [place] mg/dL LABORATORY HDL CHOLESTEROL 62 (H) 40 - 60 [place] mg/dL LABORATORY CHOL/HDL RATIO 3.4 0.0 - 4.9 [place] [facility] Comment: LDL CHOLESTEROL REFERENCE RANGES(FOR PAT IENTS W/O HEART DISEASE) ?<100 MG/DL = Optimal ? 100-159 MG/DL = Borderline ? >160 MG/DL = High ?LDL CHOLESTEROL COMMENT ? The result is a calculated number derived from total cholesterol, HDL cholesterol, and triglycerides. False values will result if chylomicrons are present, if type III lipoprotein phenotype is present or if the triglycerides are >400 mg/dl. ?? The patient should be fasting for 8-10 h ours. Specimen Anatomical Collection Method Collection Time Receive d Time (Source) Location / / Volume Laterality Blood specimen 06/01/2009 3:45 AM 009 6:40 (specimen) [facility] AM [facility] Rosanna Carrion MD CHEMISTRY ORDERABLE Performing Organization Address [facility] Phon e Number [facility] [address] [place] [address] [facility] (ABNORMAL) GLUCOSE, SERUM (05/31/2009 9:44 PM [facility])Only the most recent of2 resultswithin the time period is included. athologist Signature GLUCOSE 127 (H) 70 - 110 [facility] mg/dL [facility] Specimen Anatomical Collection Method Collection Time Receive d Time (Source) Location / / Volume Laterality Blood specimen 05/31/2009 9:44 PM 009 (specimen) [facility] 10:22 PM [facility] Rosanna Carrion MD CHEMISTRY ORDERABLE Performing Organization Address [facility] Phon e Number [facility] [address] [place] [address] [facility] D-Dimer Quantitative (05/31/2009 4:40 PM [facility]) athologist Signature D DIMER QUANT <200 0.0 - [facility] 500.0 [facility] ng/mL Comment: A D-Dimer value of less than or equal to 250 ng/mL can be used for exclusion of thromboembolism in patients with a lo w or medium clinical probability of deep vein thrombosis or pulmonary embolism. Specimen Anatomical Collection Method Collection Time Receive d Time (Source) Location / / Volume Laterality Blood specimen 05/31/2009 4:40 PM 009 4:58 (specimen) [facility] PM [facility] Marleni Choudhury MD COAGULATION ORDERABLE Performing Organization Address City/[facility]/ZIP Code Phon e Number [facility] [address] [place] [address] [facility] CBC (HGB,HCT,WBC,RBC,PLATELET) (05/31/2009 4:40 PM [facility]) [facility] WHITE BLOOD CT 9.5 4.3 - 10.8 [facility] K/uL LABOR[facility] RBC 4.53 4.20 - [facility] 5.40 M/uL LABORATORY HEMOGLOBIN 14.2 12.0 - [facility] 16.0 gm/dL LABORATORY HEMATOCRIT 40.9 36.0 - [facility] 48.0 % LAB[facility] MCV 90 80 - 100 [facility] fl [facility] MCH 31 27 - 33 pg [facility] MCHC 35 33 - 36 [facility] gm/dL [facility] PLATELET COUNT 247 150 - 400 [facility] K/uL [facility] RDW 12.6 11.5 - [facility] 14.5 % [facility] Specimen Anatomical Collection Method Collection Time Receive d Time (Source) Location / / Volume Laterality Blood specimen 05/31/2009 4:40 PM 009 4:58 (specimen) [facility] PM [facility] Marleni Choudhury MD HEMATOLOGY ORDERABLE Performing Organization Address City/[facility]/ZIP Code Phon e Number [facility] [address] [place] [address] [facility] MAGNESIUM (05/31/2009 4:40 PM [facility]) [facility] Magnesium 2.2 1.7 - 2.4 [facility] mg/dL [facility] Specimen Anatomical Collection Method Collection Time Receive d Time (Source) Location / / Volume Laterality Blood specimen 05/31/2009 4:40 PM 009 4:58 (specimen) [facility] PM [facility] Marleni Choudhury MD CHEMISTRY ORDERABLE Performing Organization Address City/[facility] Phon e Number [facility] [address] [place] [address] [facility] (ABNORMAL) BUN (UREA NITROGEN) (05/31/2009 4:40 PM [facility]) P athologist Signature BUN (UREA 20 (H) 7 - 18 [facility] NITRO) mg/dL LABORATORY Specimen Anatomical Collection Method Collection Time Receive d Time (Source) Location / / Volume Laterality Blood specimen 05/31/2009 4:40 PM 009 4:58 (specimen) [facility] PM [facility] Marleni Choudhury MD CHEMISTRY ORDERABLE Performing Organization Address City/State/ZIP Code Phon e Number [facility] [address] [place] [address] [facility] CREATININE EGFR (05/31/2009 4:40 PM [facility]) athologist Signature CREATININE 0.9 0.6 - 1.3 [facility] mg/dL [facility] EST GFR >60 mL/min [facility] (CKD-EPI) [facility] EST GFR IF >60 mL/min [facility] AM [facility] Specimen Anatomical Collection Method Collection Time Receive d Time (Source) Location / / Volume Laterality Blood specimen 05/31/2009 4:40 PM 009 4:58 (specimen) [facility] PM [facility] Marleni Choudhury MD CHEMISTRY ORDERABLE Performing Organization Address City/[facility]/ZIP Code Phon e Number [facility] [address] [place] [address] [facility] ELECTROLYTES (05/31/2009 4:40 PM [facility]IL [facility]) athologist Signature SODIUM 136 136 - 145 [facility] mMol/L LABORAT[facility] POTASSIUM 3.9 3.5 - 5.1 [facility] mMol/L [facility] CHLORIDE 102 98 - 107 [facility] mMol/L [facility] CARBON DIOXIDE 24 21 - 32 [facility] mMol/L [facility] ANION GAP 10.2 0.0 - 15.0 [facility] mMol/L LAB[facility] Specimen Anatomical Collection Method Collection Time Receive d Time (Source) Location / / Volume Laterality Blood specimen 05/31/2009 4:40 PM 009 4:58 (specimen) [facility] PM [facility] Marleni Choudhury MD CHEMISTRY ORDERABLE Performing Organization Address City/[facility]/ZIP Code Phon e Number [facility] [address] [place] [address] [facility] XRAY CHEST PORTABLE (05/31/2009 4:08 PM [facility]) Anatomical Region Laterality Modality Chest Computed Radiography Specimen (Source) Anatomical Collection Method Collection Time Re ceived Time Location / / Volume Laterality 05/31/2009 4:08 PM [facility] Impressions 05/31/2009 4:09 PM [facility] IMPRESSION: Single view. Clear lungs. ??Normal heart size and pul monary vascularity. ??No large pleural effusion. Narrative 05/31/2009 4:09 PM [facility] EXAM: ??CHEST RADIOGRAPH, May 31, 2009 3:58 p.m. CLINICAL DATA: Shortness of breath COMPARISON:None Available. Procedure Note Jefferson Browne MD - 05/31/2009Forma tting of this note might be different from the original. EXAM: CHEST RADIOGRAPH, May 31 3:58 p.m. CLINICAL DATA: Shortness of breath COMPARISON:None Available. IMPRESSION: Single view. Clear lungs. Normal heart size and pulmo nary vascularity. No large pleural effusion. Marleni Choudhury MD XRAY ORDERABLE documented in this encounter Visit Diagnoses Not on filedocumented in this encounter Administered Medications Inactive Administered Medications - up to 3 most recent administrations Medication Order MAR Action Action Date Dose Rate Site albuterol-ipratropium (conc: Given 05/31/2009 4:15 PM [facility] 3 mL 2.5-0.5mg/3mL) (DUO-NEB) nebulizer solution 3 mL 3 mL (1 ampule), Inhalation, ONCE, 1 dose, On Fri05/31/09 at 1600 aspirin tablet 325 mg Given by Provider 05/31/2009 7:30 PM [facility] 325 mg 325 mg, oral, ONCE, 1 (Comment) dose, On Fri05/31/09 at 1930 NITROGLYCERIN 0.4 MG SUBLINGUAL TAB Given 05/31/2009 6:15 PM [facility] mg 1 dose, Starting on Fri05/31/09 at 1809, Until Fri05/31/09 at 1815 sodium chloride 0.9% 1000 mL Iv New Bag 05/31/2009 6:45 PM [facility] 1,000 mL 2000 mL/hr soln 1,000 mL 1,000 mL, at 2,000 mL/hr, Intravenous, ONCE, 1 dose, On Fri05/31/09 at 1845 documented in this encounter Active and Recently Administered Medications Times are shown in [facility]. Scheduled Medication Order 05/30/2009 05/31/2009 06/01/2009 albuterol-ipratropium (conc: 2.5-0.5mg/3 mL) (DUO-NEB) nebulizer solution 3 mL (COMPLETED) 1615 (Given - Provider: Skip yanez, RT) 3 mL (1 ampule), Inhalation, ONCE, 1 dose, On Fri05/31/09 at 16 00 aspirin tablet 325 mg (COMPLETED) 1930 ( Given by Provider (Comment) - Provider: Annie Anguiano RN - Comment: given in ER by Harika) 325 mg, Oral, ONE TIME DOSE, 1 dose, Fri05/31/09 at 1930 sodium chloride 0.9% 1000 mL Iv soln 1,000 mL (COMPLETED) 1845 (New Bag - Provider: Luis Manuel Connor RN - Comment: run over two hours.) 1,000 mL, at 2,000 mL/hr, Intravenous, ONCE, 1 dose, On 05/04 0 at 1845 PRN Medication Order 05/30/2009 05/31/2009 06/01/2009 acetaminophen (TYLENOL) tablet 325-650 mg 1-2 Tab = 325-650 mg, Oral, EVERY 4 HOUR S NEEDED, Starting Fri05/31/09 at 2143, Until Discontinued No Frequency Medication Order 05/30/2009 05/31/2009 06/01/2009 NITROGLYCERIN 0.4 MG SUBLINGUAL TAB (COMPLETED) 1815 (Given - Provider: Luis Manuel Connor RN) 1 dose, Starting on Fri05/31/09 at 1809, Until Fri05/31/09 at 1815 documented in this encounter Care Teams Strategic Advisor Relationship Specialty Start Date End Date None, PCP - General 05/31/09 08/25/13 Clinic, No Primary PCP - Primary [facility] Clinic 05/31/09 08/29/13 documented as of this encounter
--- OUTSIDE RECORDS SUMMARY | 2022-02-13 11:42 | XMS_ITS | Encounter Summary ---
:1940 Author Organization [facility] Address [address] [place] [address] Care Team Providers Name Role Phone Geni, Primary Care Provider Unavailable Clinic, No Primary Unavailable Unavailable Reason for Referral (Routine) - Closed Specialty Diagnoses / Procedures Referred By Contact Refer red To Contact Procedures Nataliya Tomlinson MD Diet: Regular Referral ID Status Reason Start Date Expiration Date Visits Requ ested Visits Authorized [id number] Closed 08/09/2013 02/05/2014 1 1 (Routine) - Closed Specialty Diagnoses / Procedures Referred By Contact Refer red To Contact Procedures Nataliya Tomlinson MD Discharge Instructions Referral ID Status Reason Start Date Expiration Date Visits Requ ested Visits Authorized [id number] Closed 08/09/2013 02/05/2014 1 1 (Routine) - Closed Specialty Diagnoses / Procedures Referred By Contact Refer red To Contact Procedures Nataliya Tomlinson MD Discharge Instructions Referral ID Status Reason Start Date Expiration Date Visits Requ ested Visits Authorized [id number] Closed 08/09/2013 02/05/2014 1 1 (Routine) - Closed Specialty Diagnoses / Procedures Referred By Contact Refer red To Contact Nataliya Tomlinson MD Referral ID Status Reason Start Date Expiration Date Visits Requ ested Visits Authorized [id number] Closed 08/09/2013 02/05/2014 1 1 Scheduling Instructions If your follow up appointment is not alr bibiana scheduled, CALL today or tomorrow to schedule it. Question Answer Which physician? NATALIYA TOMLINSON [[id number]] Provider / Clinic Phone Number? [facility] [phone] Specify time frame for follow up? 1 Week Comments As soon as you can get in. (Routine) - Closed Specialty Diagnoses / Procedures Referred By Contact Refer red To Contact Procedures Nataliya Tomlinson MD Discharge Referral ID Status Reason Start Date Expiration Date Visits Requ ested Visits Authorized [id number] Closed 08/09/2013 02/05/2014 1 1 Reason for Visit Reason Comments Back Pain Inpatient Admission - Closed Specialty Diagnoses / Procedures Referred By Contact Refer red To Contact Diagnoses lumbar disc hernation Nmr 6nw [address] [facility] [place] [address] Phone: Fax: Referral ID Status Reason Start Date Expiration Date Visits Requ ested Visits Authorized Closed Encounter Details Date Type Department Care Team Description 08/08/2013 - Emergency W6 [facility] Elizalde [facility] [address] [facility] [address] [place], [place] [address] 08/09/2013 [address] [facility] Hospitalist, Nitin- NO ADDRESS ESTABLISHED - SEE PROVIDER SCREEN [place] 9352 2 Rosanna Carrion MD [address] [facility] [place] [address] [phone] Social History Tobacco Use Types Packs/Day Years Used Date Smoking Tobacco: Every Day Cigarettes 1 Tobacco Cessation: Counseling Given: No Alcohol Use Standard Drinks/Week Comments No [...] Sign Reading Time Taken Comments Blood Pressure 107/68 08/09/2013 11:50 AM CDT Pulse 81 08/09/2013 11:50 AM CDT Temperature 36.6 ??C (97.8 ??F) 08/09/2013 11:50 AM CDT Respiratory Rate 18 08/09/2013 11:50 AM CDT Oxygen Saturation 91% 08/09/2013 11:50 AM CDT Inhaled Oxygen Concentration - - Weight 77.1 kg (170 lb 1 oz) 08/08/2013 5:36 PM CDT Height 157.5 cm (5' 2) 08/08/2013 5:36 PM CDT Body Mass Index 31.1 08/08/2013 5:36 PM CDT documented in this encounter Discharge Summaries Nataliya Tomlinson MD - 08/09/2013 5:08 PM CDT Date of service: 08/09/2013 Admission date: 08/08/2013 Discharge date: 08/09/2013 Reason for admission: Low back pain and urinary incontinence. Discharge diagnoses: - L5/S1 disc hernation with R sciatic pain - glucosuria - microscopic hematuria - Tobbacco abuse INPATIENT [facility] DISCHARGE SUMMARY CLINICAL SUMMARY: Jennifer Cole is a 73 y.o. Female who presented to the ED with low back pain. She has a PMH significant for L5-S1 disc hernation sustained 2 mo ago when she tried lifting her from the ground.She has a 60+ pack years of daily cigarette smoking. She presented with LBP, severe sciatic pain, and urinary incontinence. The incontenence was the reason she came in, as she'd never had this before and awoke that morning soaked in urine. OF note, she'd had recent addition of cyclobenzaprine to her meds as well as increased oxycodone use. This was her 4th ED visit for back pain in a few months. Steroid injection did not help at all last week, but she receieveed dexamethasone drip in the ED. Chiropractic treatment did seem to help when this initially happened 2 months ago. In the hospital here, she was neurologically normal, and repeat MRI was unchanged from prior study, indicating no cord or significant nerve compression, though there remains impingment of The R S1 nerve root with BL L5-S1 foraminal narrowing. She had no neurological deficits. IT was determined she hadno need for emergent surgery. She was admitted for PT/OT eval, pain control. She had no further recurrence of urinary incontinence. She had one normal bowel movement. Orthopedist Saw patient, recommended medical management. She declined gabapentin. Her pain was better controlled with 10mg percocet q4.5hours and a lidoderm patch. P.T. recommended close follow up for outpatient PT. The goal at discharge was to manage her medically. Of note, she was also noted to have worsening crackles in her LLL, and course sounds throughout. Shereported to me that she had increasing dyspnea on exertion recently with a worsening cough. She was afebrile and denied any other infectious symptoms. She did not want further workup. She had no LE swelling or chest pain. A portable chest x ray was normal. This may be chronic bronchitis, though there is not sufficient data to call it that. She was also noted to have glucosuria with urinary frequency, likely d/t decadron in the ED. A urineculture was negative. Her UA was negative for infectious pattern, but she did have small occult blood. She was agreeable to following up for A1C and BMP. She was feeling well on the day of discharge and felt ready to go home to try medical management with the following regimen: - Schedule the following: lidoderm patch q 24h in the AM, oxycodone 5-10mg q6h, acetaminohpen 650mg q6h, and cyclobenzaprine TID. Will wean off cyclobenzaprine as outpatient, as she needs back strengthening, then will wean off the rest of meds as strength improves. - PT treatment three times weekly. She was referred to [facility] in [place], where she has time for apts on ,, between 0600 and 0900. - Goal is to manage pain while strengthening her back, and gradually decrease need for medical management. - May consider future f/u with Dr Olivares for evaluation for surgery if medical management fails. Tobbacco abuse: 60+ pack year smoker with slightly decreased sounds on the Left. She declines any smoking cesssation help as well as nicotine replacement. She should be evaluated as an outpatient for consideration for low dose screening lung CT. Her right lung base has very significant crackles, and she's had 1-2 weeks of increasing cough with dyspnea on exertion. She remained afebrile during her stay and denied fevers, chills, sweats. Chest x ray was normal. - Will need future low dose screening lung CT as outpatient. Glucosuria: Likely d/t dexamethasone infusion in ED. But, given poor medical follow up previusly, diabetes can't be ruled out. - FOLLOW UP IN CLINIC FOR A1C and REPEAT UA FOR MICROSCOPIC HEMATURIA CHANGES TO TREATMENT PLAN: - SCHEDULED ACETAMINOPHEN - SCHEDULED OXYCODONE 5MG tid - SCHEDULED LIDODERM PATCHES Qam X 12 HOURS. - SCHEDULED SENNA - REFERRED FOR PT. Review of Systems - Voiding wihtuot trouble. Negative other than symptoms mentioned in subjective. OBJECTIVE: BP 130/91 Pulse 82 Temp(Src) 98 ??F (36.7 ??C) Resp 17 Ht 5' 2 (1.575 m) Wt 77.14 kg (170lb 1 oz) BMI 31.1 kg/m2 SpO2 95% Intake/Output Summary (Last 24 hours) at 08/09/13 1040 Last data filed at 08/09/13 0923 Gross per 24 hour Intake 2460 ml Output 2430 ml Net 30 ml GENERAL: Pt awake, alert, NAD SKIN: Warm and dry to touch. No erythema and no rashes seen. HEENT: Mucous membranes moist RESP: Lungs with very course crackles in L base, course sounds throughout left and right, faint expiratory wheeze as well. No increase in respiratory effort. CARDIO: Normal S1 and S2 with regular rate and rhythm. No murmurs, rubs or gallops appreciated. ABD: Bowel sounds present. Soft and nontender without guarding. No distention. No masses appreciated. EXT: No edema. Distal pulses are 2+ bilaterally. Full range of motion in all four extremites. NEURO: LE strength is 5/5 BL. Reflexes 2+ at patellae BL. LABS: Results for orders placed during the hospital encounter of 08/08/13 (from the past 24 hour(s)) URINALYSIS W/ MICROSCOPY AND/OR UC, IF INDICATED Result Value Range PH URINE 6.0 4.5-8.0 SP.GRAVITY, UA 1.010 (*) 1.015-1.025 PROTEIN, UA Negative Negative mg/dL GLUCOSE, UA 100 (*) Negative mg/dL KETONE, UA Negative Negative mg/dL BILIRUBIN, UA Negative Negative OCCULT BLOOD, UA Small (*) Negative, Trace, TRACE-LYSED, TRACE-INTACT UROBILINOGEN, UA 0.2 0.2-1.0 EU/dL WBC ESTERASE, UA Negative Negative, Trace NITRITE, UA Negative Negative URINALYSIS MICROSCOPY (LAB USE ONLY) Result Value Range WBC-UA MICRO Occasional None Seen, Occasional, Few, 1-4 /hpf RBC-UA 1-4 (*) None Seen, Occasional /hpf IMAGING: CXR portable A/P: NL. MRI lumbar spine w/o contrast: No change in the disc bulge with superimposed right paracentral disc extrusion at L5-S1 which extends inferiorly to impinge the traversing right S1 nerve root. Bilateral neural foraminal narrowing at L5-S1. FOLLOW UP: - With PT this week for treatment of disc hernation - With Dr Tomlinson this week for A1C, repeat UA for microscopic hematuria , f/u of pain control, and other screening if she so desires. She should have low dose screening chest ct. Needs colonoscopy, mammogram, lipids. Staffed with Dr Vera. Patient expressed understanding and agreement to treatment plan. Nataliya Tomlinson MD, PGY1 PAGER # [phone] 08/09/2013 5:00 PM documented in this encounter Discharge Instructions Discharge InstructionsWeellen Sullivan RN - 08/09/2013 1:41 PM CDT Activity Your provider has recommended that your activity be: As ordered by your provider. Dietary Recommendations The diet that has been [...] sure to take your medications as prescribed. Call your doctor within 24 hours if you have any of the following symptoms: ?? New or increased chest pain ?? Increased or unexpected swelling ?? Increased or unexpected shortness of breath ?? Sudden or unexpected weight gain or loss ?? Nausea, vomiting, and/or diarrhea Monitor Your Weight Weigh yourself everyday in the morning and keep a record. If your weight has increased 2 pounds overnight or 4 pounds in one week, contact you primary care provider/MD. Discharge Weight Weight: 77.14 kg (170 lb 1 oz) Please keep any follow-up appointments that [...] live longer. For further assistanceplease call the [employer] Helpline at [phone])-457-QVQX or go to their website [email or web address]. documented in this encounter Medications at Time of Discharge Medication Sig Dispensed Refills Start Date End Date acetaminophen (TYLENOL) Take 2 Tabs by mouth 120 Tab 3 08/16/2013 325 mg Oral Tab four times a day. cyclobenzaprine Take 10 mg by mouth 0 [...] mouth three times a Oral Cap day. senna (SENOKOT) 8.6 mg Take 1-2 Tabs by 90 Tab 0 014 09/07/2013 Oral Tab mouth Twice a Day. documented as of this encounter Progress Notes Lisa Sullivan RN - 08/09/2013 2:43 PM CDT Jennifer Cole 1940 [id number] P: Discharge A: Discharged via wheelchair to home at 1400 escorted by volunteer I: Discharge information and arrangements included: review of written discharge instructions, prescriptions sent with patient, belongings list completed. R:Patient, son, and dtr in law expressed understanding of information.. Nataliya Tomlinson MD - 08/09/2013 10:40 AM CDT Date of service: 08/09/2013 Admission date: 08/08/2013 INPATIENT [facility] DISCHARGE SUMMARY CLINICAL SUMMARY: Jennifer Cole is a 73 y.o. Female who presented to the ED with low back pain. She has a PMH significant for L5-S1 disc hernation sustained 2 mo ago when she tried lifting her from the ground.She has a 60+ pack years of daily cigarette smoking. She presented with LBP, severe sciatic pain, and urinary incontinence. The incontenence was the reason she came in, as she'd never had this before and awoke that morning soaked in urine. OF note, she'd had recent addition of cyclobenzaprine to her meds as well as increased oxycodone use. This was her 4th ED visit for back pain in a few months. Steroid injection did not help at all last week, but she receieveed dexamethasone drip in the ED. Chiropractic treatment did seem to help when this initially happened 2 months ago. In the hospital here, she was neurologically normal, and repeat MRI was unchanged from prior study, indicating no cord or significant nerve compression, though there remains impingment of The R S1 nerve root with BL L5-S1 foraminal narrowing. She had no neurological deficits. IT was determined she hadno need for emergent surgery. She was admitted for PT/OT eval, pain control. Orthopedist Saw patient, recommended medical management. She declined gabapentin. Her pain was better controlled with 10mg percocet q4.5hours and a lidoderm patch. PT recommended close follow up for outpatient PT. The goal at discharge was to manage her medically. Of note, she was also noted to have worsening crackles in her LLL, and course sounds throughout. Shereported to me that she had increasing dyspnea on exertion recently with a worsening cough. She was afebrile and denied any other infectious symptoms. A portable chest x ray was normal. She Was also noted to have glucosuria with urinary frequency, likely d/t decadron in the ED. A urineculture was negative. Her UA was negative for infectious pattern, but she did have small occult blood. She was agreeable to following up for A1C and BMP. She was feeling well on the day of discharge and felt ready to go home to try medical management with the following regimen: - Schedule the following: lidoderm patch q 24h in the AM, oxycodone 5-10mg q6h, acetaminohpen 650mg q6h, and cyclobenzaprine TID. Will wean off cyclobenzaprine as outpatient, as she needs back strengthening, then will wean off the rest of meds as strength improves. - PT treatment three times weekly. She was referred to [facility] in [place], where she has time for apts on M,W,F between 0600 and 0900. - Goal is to manage pain while strengthening her back, and gradually decrease need for medical management. - MAy f/u with Dr Olivares for evaluation for surgery if medicalmanagement fails. Tobbacco abuse: 60+ pack year smoker with slightly decreased sounds on the Left. She declines any smoking cesssation help as well as nicotine replacement. She should be evaluated as an outpatient for consideration for low dose screening lung CT. Her right lung base has very significant crackles, and she's had 1-2 weeks of increasing cough with dyspnea on exertion. She remained afebrile during her stay and denied fevers, chills, sweats. Chest x ray was normal. - Will need future low dose screening lung CT as outpatient. Glucosuria: Likely d/t dexamethasone infusion in ED. But, given poor medical follow up previusly, diabetes can't be ruled out. - FOLLOW UP IN CLINIC FOR A1C and REPEAT UA FOR MICROSCOPIC HEMATURIA CHANGES TO TREATMENT PLAN: - SCHEDULED ACETAMINOPHEN - SCHEDULED OXYCODONE 5MG tid - SCHEDULED LIDODERM PATCHES Qam X 12 HOURS. - REFERRED FOR PT. Review of Systems - Voiding wihtuot trouble. Negative other than symptoms mentioned in subjective. OBJECTIVE: BP 130/91 Pulse 82 Temp(Src) 98 ??F (36.7 ??C) Resp 17 Ht 5' 2 (1.575 m) Wt 77.14 kg (170lb 1 oz) BMI 31.1 kg/m2 SpO2 95% Intake/Output Summary (Last 24 hours) at 08/09/13 1040 Last data filed at 08/09/13 0923 Gross per 24 hour Intake 2460 ml Output 2430 ml Net 30 ml GENERAL: Pt awake, alert, NAD SKIN: Warm and dry to touch. No erythema and no rashes seen. HEENT: Mucous membranes moist RESP: Lungs with very course crackles in L base, course sounds throughout left and right, faint expiratory wheeze as well. No increase in respiratory effort. CARDIO: Normal S1 and S2 with regular rate and rhythm. No murmurs, rubs or gallops appreciated. ABD: Bowel sounds present. Soft and nontender without guarding. No distention. No masses appreciated. EXT: No edema. Distal pulses are 2+ bilaterally. Full range of motion in all four extremites. NEURO: LE strength is 5/5 BL. Reflexes 2+ at patellae BL. LABS: Results for orders placed during the hospital encounter of 08/08/13 (from the past 24 hour(s)) URINALYSIS W/ MICROSCOPY AND/OR UC, IF INDICATED Result Value Range PH URINE 6.0 4.5-8.0 SP.GRAVITY, UA 1.010 (*) 1.015-1.025 PROTEIN, UA Negative Negative mg/dL GLUCOSE, UA 100 (*) Negative mg/dL KETONE, UA Negative Negative mg/dL BILIRUBIN, UA Negative Negative OCCULT BLOOD, UA Small (*) Negative, Trace, TRACE-LYSED, TRACE-INTACT UROBILINOGEN, UA 0.2 0.2-1.0 EU/dL WBC ESTERASE, UA Negative Negative, Trace NITRITE, UA Negative Negative URINALYSIS MICROSCOPY (LAB USE ONLY) Result Value Range WBC-UA MICRO Occasional None Seen, Occasional, Few, 1-4 /hpf RBC-UA 1-4 (*) None Seen, Occasional /hpf IMAGING: CXR portable: NL. MRI lumbar spine w/o contrast: No change in the disc bulge with superimposed right paracentral disc extrusion at L5-S1 which extends inferiorly to impinge the traversing right S1 nerve root. Bilateral neural foraminal narrowing at L5-S1. FOLLOW UP: - With PT this week for treatment of disc hernation - With Dr Tomlinson this week for A1C, repeat UA for microscopic hematuria , f/u of pain control, and other screening if she so desires. She should have low dose screening chest ct. Needs colonoscopy, mammogram, lipids. Staffed with Dr Vera. Patient expressed understanding and agreement to treatment plan. Nataliya Tomlinson MD, PGY1 PAGER # [phone] 08/09/2013 5:00 PM Skip Vera MD - 08/09/2013 10:40 AM CDT Pt seen and discussed with Dr. Tomlinson, his discharge note is reviewed and all findings confirmed. Treatment plan discussed with Dr. Tomlinson and approved. I have no other additions or corrections. Active Problems: Lumbar disc herniation with radiculopathy Cough Glucosuria Skip Vera MD Melania Vargas, RT - 08/09/2013 5:23 AM CDT Assessed pt for PRN NEB, B.S. Clear, pt doesn't do NEBs or inhaler neb at home, there is no pulmonary HX, NEBs DC'd PBP. Melania Vargas RT Belen Diaz RN - 08/08/2013 10:42 PM CDT Pt admitted this evening for severe low back pain it's been bothering me about 4 weeks: I take careof my , he's disabled. I hurt my back taking care of him. She has herniated disc of L5. Had an episode of incontinence this morning at home, but has since been able to maintain bladder control.States she has urinary frequency and gets up q1-2 hrs overnight to use the bathroom. Plan to stay overnight under obs status. Will be evaluated by PT tomorrow and was seen by Dr. Ferguson, who she has been seeing outpatient regarding surgery. A&Ox3. Per report: Up with heavy Ax2 andRLE abdullahi due to sciatic pain and pain medial right knee to calf, Lidocaine patch applied tonight-then Dr Carrion came by, wanted Lidocaine patch off, she wants it on the painful are of the right buttock at 0800 and off at 2000- messaged Pharmacy for time change. Oxycontin 10 mg BID started tonight.Dr. Carrion suggested ice while when Lidocaine patch is off, attempted, but this made her pain worse.One Percocet was ineffective for pain, 2 Percocet given. She has scheduled Flexaril 3x/day. UA was sent, occasional WBC, small occult blood- UC pending. Per report: Family is aware that goal is to discharge today. Aviva Ham RN - 08/08/2013 7:01 PM CDT Pt admitted this evening for severe low back pain. Has herniated disc of L5. Had an episode of incontinence this morning at home, but has since been able to maintain bladder. States she has urinary frequency and gets up q1-2 hrs overnight to use the bathroom. Sent page to MD to request UA/UC. Plan to stay overnight under obs status. Will be evaluated by PT tomorrow and Dr. Ferguson as he is the physician she has been seeing outpatient regarding surgery. A&Ox3. Up with heavy Ax2 and RLE abdullahi due to sciatic pain. Takes 1-2 percocet q4hrs and flexeril. Daughters are in room. Family is aware that goal is to discharge tomorrow. Leroy Durham, Pharm D - 08/08/2013 3:49 PM CDT Images from the original note were not included. PHARMACY MEDICATION RECONCILIATION NOTE Pharmacy has reconciled the home medications. Assessment: The [employer] medications list has been updated and is reflected in the chart at the end of note. Medication Related Issues: 1. Son says patient is on percocet, but nothing filled since 07/25/13. [place] was filled more recentlyon 08/02/13 Subjective: Prior to admission medications were reviewed with family This patient obtains medications from [facility]. Pharmacy information was updated in [employer]. IMMUNIZATIONS: Verified with family There is no immunization history on file for this patient. CONTROLLED SUBSTANCES (if any): verified with [facility] ALLERGIES: Oxycodone PRIOR TO ADMISSION MEDICATION LIST: Prior to Admission Medications Outpatient Medications Last Dose Informant Patient Reported? Taking? cyclobenzaprine (FLEXERIL) 10 mg Oral Tab 08/07/2013 Yes Yes Sig: Take 10 mg by mouth three times a day. oxyCODONE-acetaminophen (PERCOCET) 5-325 mg Oral Tab 08/07/2013 No Yes Sig: Take 1-2 Tabs by mouth every four (4) to six (6) hours as needed for Pain. Facility-Administered Medications: None Please use the [employer] medication section for ordering home doses. Thank you for the opportunity to participate in the care of this patient. Jim Bahena D Phone #: [phone] Consult time:20 min documented in this encounter H&P Notes Nataliya Tomlinson MD - 08/08/2013 6:02 PM CDT ADMISSION HISTORY AND PHYSICAL Patient Name: Jennifer oCle Address: [address] [place] [address] [address] [place] [id number] Age:73 y.o. Sex: female Admission Date/Time: 08/08/2013 11:27 AM Admitting provider: Shahid Vaughan MD Hospital Attending Physician: Hospital[facility]ianni kline Primary Care Provider: , None Informant: patient CHIEF COMPLAINT: lower back pain HPI: Jennifer Cole is a 73 y.o. female with a PMH significant for 63 pack years of smoking who presents to the ED for low back pain, RLE tingling and numbness, and urinary incontinence this morning. This started 2 mo ago when she picked up her after he fell, and devloped sudden low back painand R buttock pain. She had an MRI which showed L5/S1 disc herniation. She went to a chiropracter shortly thereafter and had 2 adjustments in a week, with relief after each treatment that quickly wore off. She's now visited the ED 4 times for this same problem. She again picked her up after a fall a week ago last , which again acutely worsened her pain. She then went to the ED and was given flexeril. Since that time, her pain has worsened daily. Pain shoots down her R buttock, down her leg to her knee. It's also associated with Numbnesxs and tingling from the R toes to the R tibial tuberosity. Pain so bad, she can't walk without a walker. This morning, she woke up with her bedclothes soaked in urine. She has never before been incontinent ofurine or stool. She has no saddle anesthesia or bowel incontinence. She is constipated, but that's been going on since she started taking opioids for this pain 2 months ago. At first, the pain was contr olled with a quarter of a percocet taken 4 times daily, and now she's been taking multiple pills daily, with TID flexeril 10mg as well. Every morning when she gets up, she forgets that she has this pain, tries to stand up, and falls back into bed because of the pain in her leg. She thinks it's pain limiting her use of her R leg, and not weakness. She's had no unintentional weight loss, no night sweats, no fatigue, no SOB, no CP, no visual distuerbacnces, no hearing changes, no strange tastes, , no fever, chills, vomiting (some nausesa when she takes percocet on empty stomach), no anorexia, no swelling, no bloody stools, no sore throat. No swelling. She's had some mild cold symptoms recently. PAST MEDICAL HISTORY - She did have some non specific chest pain a couple years ago, with negative cardiac workup. - 63 pack year smoker. PAST SURGICAL HISTORY Past Surgical History Procedure Laterality Date ??? Hx cholecystectomy MEDICATIONS Prescriptions prior to admission Medication Sig Dispense Refill ??? cyclobenzaprine (FLEXERIL) 10 mg Oral Tab Take 10 mg by mouth three times a day. ??? oxyCODONE-acetaminophen (PERCOCET) 5-325 mg Oral Tab Take 1-2 Tabs by mouth every four (4) to six (6) hours as needed for Pain. 30 Tab 0 ALLERGIES Review of patient's allergies indicates no known allergies. FAMILY HISTORY 2 sons and a daughter with herniated L5/S1, 2/3 of whom have had surgery for this. SOCIAL HISTORY History Social History ??? Marital Status: Spouse Name: N/A Number of Children: N/A ??? Years of Education: N/A Occupational History ??? Not on file. Social History Main Topics ??? Smoking status: Current Every Day Smoker -- 1.00 packs/day Types: Cigarettes ??? Smokeless tobacco: Not on file ??? Alcohol Use: No Comment: occasional ??? Drug Use: No ??? Sexually Active: Not on file Other Topics Concern ??? Not on file Social History Narrative ??? No narrative on file REVIEW OF SYSTEMS General: No fevers, chills, sweats, fatigue, or weight changes HEENT: No vision loss/changes. No rhinorrhea or congestion. No sore throat. No ear pain CV: No chest pain or palpitations. Resp: No shortness of breath or cough. No wheezing. No hemoptysis. GI: No nausea, vomiting, constipation, diarrhea, bloody stool, or abdominal pain : No urinary pain, change in color, or frequency. Skin: No new rashes or lesions Endo: No polyuria/polydypsia Heme: No easy bruising/bleeding. Neuro: No headaches. No dizziness/light-headedness. No alterations in thinking, or focal weakness. Psych: No significant change in mood. PHYSICAL EXAM BP 106/75 Pulse 84 Temp(Src) 98.2 ??F (36.8 ??C) Resp 16 Ht 5' 2 (1.575 m) Wt 77.14 kg (170 lb 1 oz) BMI 31.1 kg/m2 SpO2 95% Body mass index is 31.1 kg/(m^2). General: Awake, alert, pleasant. Head: NC/AT Eyes: PERRL, EOMI, no scleral icterus, no pallor. Oropharynx: moist mucous membranes. CV: Regular rate and rhythm, no murmurs auscultated Resp: Decreased in the L base, with course sounds throughout. Some very mild wheezes on expiration in the LLL. No rhonchi, or crackles. Abd: Soft, nontender to palpation, nondistended, bowel sounds present. MS: Normal musculature, gait not assessed Ext: No peripheral edema, pulses equal bilaterally, warm and well perfused Skin: warm and dry, no rashes noted Neuro: AAOx3. CN II-XII grossly intact, no focal motor or sensory deficits, moving extremities equally. She has a very positive R straight leg raise. She has 5/5 strength with hip adduction and abduction, foot plantar and dorsiflexion. Her light touch is intact in all dermatomes of LE BL. Her reflexes are 2+ at both patellae. Back: Nontender to palpation of spinous procresses. Positive L straight leg raise. Psych: Appropriate mood/affect. LABS & STUDIES EKG: Imaging: MRI No change in the disc bulge with superimposed right paracentral disc extrusion at L5-S1 which extends inferiorly to impinge the traversing right S1 nerve root. Bilateral neural foraminal narrowing at L5-S1. Overall there is no significant change rom prior study. ASSESSMENT/PLAN Jennifer Cole is a 73 y.o. female with a PMH significant for L5S1 disc hernation and 60+ pack years of daily cigarette smoking who presented with LBP and urinary incontinence. She is neurologically normal, and unchanged per MRI. No need for emergent surgery. Admitted for PT/OT eval, pain control. Will discuss with orthopedics service to discuss possible surgery, as family was very very insistent onthis point as well. She declines gabapentin. 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 - ortho consult, as family and patient requesting Dr Ferguson by name; this is NOT an emergent need. - PT/OT eval and treatment - lidoderm patch and acetaminophen. Tobbacco abuse: 60+ pack year smoker with slightly decreased sounds on the Left. She declines any smoking cesssation help as well as nicotine replacement. She should be evaluated as an outpatient for consideration for low dose screening lung CT FEN/Access/[place]- peripheral access Prophylaxis- PPI. SCDs Code status- Full per pt. Dispo- home tomorrow pending PT/OT eval and recs Discussed with Dr. Sheyla Tomlinson MD, PGY1 PAGER # [phone] Rosanna Carrion MD - 08/08/2013 6:02 PM CDT Addendum The patient was seen/interviewed and examined by me. I discussed the care plan with Nataliya Tomlinson MD . Patient had pulled her back about 2 months ago when she was helping her . Has been having lower back ever since. Pain radiates down right buttock, leg . She had multiple ER visits. Was been by ortho last week, Patient tells me that she had an epidural injection last Friday , helped her pain initially but now bad again. She had episode on urinary incontinence this AM , but now able to void OK.Has had problems with constipation, but on narcotics. On exam she has tenderness in lower lumbar spine and sacral area, has pain when moving lower extremities worse right , + strait leg raise. MRI was done an shows disk bulge and paracentral disc extrusion L5-S1 with impingement of S1 nerve root on right, apparently stable from previous MRI . Patient had been seen by ortho, for now plan is for lidoderm patch . She received decadron in ER, will continue. Will need physical therapy but ortho rec bed rest. Start long acting narcotics, will start OxyContin bid as well. Already had epidural steroid injection this week. Question if will need surgical intervention as pain is still severe and ongoing despite medications. Question if ortho can do surgery for This Vs needing neurosurgical evaluation. Cough: no shortness of breath, has wet cough, sats OK in ER, now had 2 placed, will check CXR in AM so please follow up. Hold sq heparin as might need more intervention . Rest of the issues as outlined by Nataliya Tomlinson MD . Rosanna Carrion MD documented in this encounter Consult Notes Manuela Baldwin, PT - 08/09/2013 11:31 AM CDT PT MEDICARE OBSERVATION EVALUATION Patient's Name: Jennifer Cole Provider Name: [facility] Provider Number: NMR: [id number] [id number] Onset Date: 08/05/13 SOC Date: 08/09/2013 Primary Diagnosis: lumbar disc hernation Certification: FROM 08/09/2013 THROUGH 11/06/2013 Prior Hospitalization: FROM N/A TO N/A History: Patient admitted to [facility] on 08/08/2013 due to lower back pain. She first developed LBP after picking her up after a fall 2 months ago, but pain worsened last week when she again picked him up after a fall. MRI showed L5/S1 disc herniation. Refer to Jaimee Assessment, Chart Review, and Past Medical History. Social History: Patient lives with family ( and daughter) in an apartment with 8 stairs to enter with 1 rail. Patient uses no assistive device at baseline, but recently has been using a RW. Patient is independent with ADLs. 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 Recently her daughter has been having to help her around secondary to her pain. Evaluation Findings: Patient was seen in room for initial evaluation. Patient was alert, oriented and cooperative. Pt adamant about doing things independently, does not want to stay in the hospital andis defensive when discussing having a social media strategist assist with setting up d/c needs. Patient follows directions and participates in PT activity. Judgment appears intact and communication is WFL. ROM: Patient's UE and LE ROM are WFL. Strength: Patient's UE and LE strength is WFL. Sensation: Patient's light touch was intact throughout, though she complains of tingling in the right leg. Mobility: Pt completed all bed mobility independently. She tolerated laying prone for ~1.5 min. She transferred sit<>stand with SBA. Pt amb ~30 feet with a RW with CGA/SBA. Pt is reliant on UEs for mobility. She participated in standing lumbar extension, prone press-up, and lower trunk rotation exercises with no increase in pain. Pain: Patient complained of 2/10 pain in low back and into the right leg. Precautions: Precautions include: fall risk and pain. Endurance: Patient's endurance is fair. Patient Education: Patient educated on role of PT, ROM/positioning and transfers and ambulation. Assessment/Recommendations: Patient's strengths include: good family support, patient motivation, patient cooperation, ambulatory. Patient's limitations include: pain and needs to provide physical assistance for . Pt will be able to d/c home with support, but recommend continued outpatient PT at d/c for pain management and to improve function. Will continue inpatient PT while she is hospitalized. Patient/Family Participation in Goal Setting: Yes Patient Goal/Preference: I'm going home today! Treatment Plan: gait training, therapeutic exercise, home exercise program and patient/family education Goals: Short Term Goals: 2-4 days Patient will perform sit to stand/stand to sit independently Patient will ambulate 150 feet with modified independence and a rolling walker Patient will climb and descend 8 steps with 1 rail with CGA Patient will participate in 15-30 minute therapy program. Therapy Potential: fair due to above stated strengths and limitations Frequency and Duration: 1x day, 5-7 days/week or for duration of hospitalization 5 minutes spent reviewing chart. Physical Therapy G-Codes Functional Reporting Functional Limitation: Mobility: Walking and moving around Mobility: Walking and Moving Around Current Status (G8978): At least 1 percent but less than 20 percent impaired, limited or restricted Mobility: Walking and Moving Around Goal Status (G8979): 0 percent impaired, limited or restricted Anup Ferguson MD - 08/08/2013 9:23 PM CDT ORTHOPEDIC CONSULTATION Jennifer Cole 1940 Date of admission: 08/08/2013 11:27 AM Date of consultation: 08/08/2013 Consult reqested by: [facility]- Hospitalist; No ref. provider found CC: Exacerbation of low back pain incontinence History of present illness: This patient developed low back pain of a significant degree over a weekago. She had gone in to see Dr. Nina who evaluated her and ordered an epidural steroid injection.An MRI had demonstrated a L5-S1 herniated disc. The lumbar epidural steroid injection was done about5 days ago. It did not provide any relief. The patient's family called me 48 hours ago with complaints of increased pain. We had ordered some muscle relaxant in addition to the narcotic she was taking.We discussed the possibility of oral steroids but agreed to let the epidural steroid hopefully take effect. On the morning of admission she called again saying that she had been incontinent of urine and the night before and her family indicated that she was incontinent of stool. The family was told to bring her to the hospital immediately. When she arrived at [facility] she was having some level of back pain and right leg pain. She underwent an emergency MRI scan which demonstrated no changes from the previous MRI scan done about 10 days ago. It did indicate an L5-S1 disc. It was elected to admit the patient for observation based on the history of new onset incontinence. No past medical history on file. @meds@ No Known Allergies Complete review of systems was done by the primary care physician this was reviewed by myself. Physical exam: BP 100/70 Pulse 97 Temp(Src) 98.6 ??F (37 ??C) Resp 16 Ht 5' 2 (1.575 m) Wt 77.14 kg (170lb 1 oz) BMI 31.1 kg/m2 SpO2 95% The patient's past medical history, medications, family, allergies and social history And review of systems were all reviewed by myself with the patient in the patient's admission H&P. General: The patient was alert and oriented x 3 HEENT Head: normal with no evidence of trauma Pupils: equal round and reactive extraocular motions are full. Cervical spine: near full range of motion of the neck, with no palpable tenderness Chest: Clear Cardiovascular: Regular rate and rhythm without peripheral edema Abdomen: Soft nontender bowel sounds present Extremities: Upper extremities have full range of motion without swelling or deformity normal neurologic and vascular exam. The patient has no visible deformities in the lower extremities. She has full passive and active range of motion of the joints of the lower extremities. No pain is produced with motion of the joints. Neurologic exam demonstrates 4-5 weakness in the ankle flexors on the right as well as a positive straight leg raise at about 50?? for hip and back pain. In addition she has diminished ankle reflex on the right. Her knee reflexes are symmetrical. There is no numbness in the lower extremities. Laboratory examination: HEMOGLOBIN Date Value Range Status 08/01/2013 14.2 12.0-16.0 gm/dL Final WBC Date Value Range Status 08/01/2013 7.9 4.3-10.8 K/uL Final WHITE BLOOD CT Date Value Range Status 05/31/2009 9.5 4.3 - 10.8 K/uL Final Assessment: Exacerbation of herniated disc Recommendations: Bedrest and Decadron infusion which was done in the emergency room. Sincerely, Electronically signed by Anup Ferguson M.D. [id number] CC:[facility] Hospitalist; No ref. provider found documented in this encounter Nursing Notes Belen Diaz RN - 08/09/2013 6:35 AM CDT Problem: SAFETY Goal: *Communicates safety needs Outcome: Met this shift Pt uses call light appropriately and is able to make her needs known. Goal: Absence of infection Outcome: Met this shift No sign of infection noted so far this shift. UC is pending. Problem: Pain Goal: Exhibits reduction in pain to a level of acceptable comfort Outcome: Not met this shift Pt has been having periods of time where she is comfortable enough to sleep, but other times she is painful. She said the pain comes and goes. Pain had been mostly medial knee, but since ice packs wereplaced after seen by Dr Carrion, she has been more painful. Ice packs removed. Lidocaine patch to be placed at 0800. Oxycontin 10mg po BID started during the night. Taking (2) Percocet q4h. Flexaril scheduled 3x/day. Decadron po started this a.m. Pt did have lumbar injection on Friday last week, but it didn't work. Problem: Falls - Risk of Goal: Absence of falls Outcome: Met this shift No falls so far this shift. Pt has been getting up to bedside commode w/ assist of 1, walker and gait belt. Problem: Pressure Ulcer - Risk of Goal: Absence of pressure ulcer Outcome: Met this shift No areas of pressure noted this shift. Pt shifts weight around frequently. Assisting w/turns PRN. Problem: Deep Venous Thrombosis/Pulmonary Embolism (DVT/PE) Goal: Absence of deep venous thrombosis/pulmonary embolism Outcome: Met this shift No sign or symptom of DVT so far this shift. Sequentials on. documented in this encounter ED Notes Aminata Aaron - 08/08/2013 2:59 PM CDT Pt back from MRI, sleeping. Pt b/p low so another liter of NS hung Kaelyn Lane RN - 08/08/2013 1:38 PM CDT Pt c/o nasal congestion- afrin admin. Ativan given and pt to US. Bp improved with fluids. Kaelyn Lane RN - 08/08/2013 1:15 PM CDT Pt hypotensive after dialudid. C/o feeling lightheaded- notified and NS bolus infusing. Joe Elizalde MD - 08/08/2013 11:38 AM CDT Chief Complaint: Back pain HPI History initially obtained at 11:39 AM on 08/08/2013. Jennifer Cole is a 73 y.o. female who presents to the ED for evaluation and treatment of back pain. The patient states that for the past 3 weeks she has been experiencing pain to the lower back that waxes and wanes in severity with associated numbness and pain to the right leg. She reports that the pain has been so severe that she has been unable to walk for the past week or so. She reports that she underwent an MRI one week ago at [place] which showed an L5 bulging disc and is taking Percocetand Flexeril for her pain. She also reports a cortisone injection on Friday with mild relief. She states that this morning however she experienced bladder incontinence which she has never experienced b waylon and called Dr. Worrell who told her to come into the emergency department. She denies any chestpain, shortness of breath, bowel incontinence, fevers, chills or any other complaints. Medications: Vicodin Tramadol Percocet Flexeril Allergies: Oxycodone Past Medical History: Back pain Past Surgical History: Cholecystectomy Family History: The patient has no past pertinent family history. Social History The patient is . The patient reports use of tobacco. The patient denies use of alcohol or illicit drugs. Review of Systems A complete 10 point ROS was conducted and negative for acute findings except as above in HPI. Physical Exam: Initial ED Vitals Temperature: 98.6 ??F (37 ??C) Pulse: 75 Respirations: 18 BP: (not recorded) SpO2: 94 % Physical Exam Nursing note and vitals reviewed. Constitutional: She is oriented to person, place, and time. She appears well- developed. She is cooperative. Non-toxic appearance. No distress. Pleasant. HENT: Head: Normocephalic and atraumatic. Right Ear: Tympanic membrane normal. Left Ear: Tympanic membrane normal. Nose: Right sinus exhibits no maxillary sinus tenderness and no frontal sinus tenderness. Left sinusexhibits no maxillary sinus tenderness and no frontal sinus tenderness. Mouth/Throat: Oropharynx is clear and moist and mucous membranes are normal. No oropharyngeal exudate. Eyes: EOM are normal. Pupils are equal, round, and reactive to light. Neck: Trachea normal. Neck supple. No JVD present. Carotid bruit is not present. No tracheal deviation present. Cardiovascular: Normal rate, regular rhythm, S1 normal and S2 normal. Exam reveals no gallop and no friction rub. No murmur heard. 2 plus pulse. Cap refill < 2 seconds. Pulmonary/Chest: No stridor. Clear to auscultation bilaterally. Abdominal: Soft. Bowel sounds are normal. She exhibits no distension. There is no hepatosplenomegaly. There is no tenderness. There is no rebound, no guarding and no CVA tenderness. Musculoskeletal: She exhibits no edema and no tenderness. Lymphadenopathy: She has no cervical adenopathy. Neurological: She is alert and oriented to person, place, and time. Diminished sensation over the right first web space and over S1 nerve disturbtion of right lower extremity. Loss of achilles reflex on the right side. Muscle strength at extension of right leg from knee is 4.5/5. 5/5 on left. Left lower extremity is neurologically intact. Skin: Skin is warm and dry. No lesion and no rash noted. No cyanosis. Psychiatric: She has a normal mood and affect. Her behavior is normal. Judgment normal. Imaging: MRI spine lumbar wo IV contrast: No change in the disc bulge with superimposed right paracentral disc extrusion at L5-S1 which extends inferiorly to impinge the traversing right S1 nerve root. Bilateral neural foraminal narrowing at L5- S1. Reading per Radiology Interventions: Decadron 4 mg IV Dilaudid 1 mg IV Oxymetazoline 0.05% nasal spray Normal saline 500 mL IV X3 Decadron 4 mg IV ED Course: The patient's past medical history was reviewed. IV inserted. I went into the room and examined the patient and discussed the plan of care, which included the above diagnostic study. The patient is agreeable to the course of care. I reviewed the workup findings with the patient. I consulted with Dr. Ferguson. The patient will be admitted to the hospital. All questions were answered, and the patient remained stable in the ED prior to transfer to the admitting floor. Last ED Vitals: Temperature: 98.2 ??F (36.8 ??C) HR: 84 Respirations: 16 SpO2: 95 % BP: 106/75 mmHg Medical Decision Making: After initial evaluation and discussion with Dr. Ferguson we agreed that the patient should undergo MRI scan. The patient was given Dilaudid, a total of 1 mg IV for pain control along with Decadron 4 mgIV. She was given Ativan 1 mg IV for anxiety and Zofran 4 mg IV. We were able to complete the MRI scan and there was some motion artifact but it appears there are degenerative changes in L5 S1. No abnormal marrow signal and no change in the disc bulging and superimposed right paracentral disc extrusion at L5 S1. The patient did become somewhat hypotensive with her medications. She responded to 1500 mls of IV fluid which I ordered. At this time the patient is somewhat sedated due to the pain managemen t. Review of All Chart reviews shows that the patient has been to either here or [facility] 4 times in the last week for evaluation as well as epidural injection. I feel at this point the family is very frustrated and feel that she is not improving. I did try to explain to them that the steroids in the long run has helped, but evidently she has been on steroids in the past and they did not help and neither has the epidural injections. At this point I think she should be admitted to the hospital. I did contact Dr. Ferguson to let him know the results of the MRI scan. At this point there is no acute impingement that needs emergent surgical intervention. At this time she will be admitted for pain control and surgical consultation. Final Assessment 1. L5 S1 right sided disc herniation 2. Intractable low back pain Disposition: Patient to be admitted to the hospital for IV fluid, pain management, and surgical consultation. Scribe Disclosure Statement I, Jessica Delgado, am serving as a scribe to document services personally performed by Dr. Joe Elizalde based on my observations and the provider's statements to me. 08/08/2013 [facility] Emergency Department Oscar Dorsey RN - 08/08/2013 9:53 AM CDT Pt has L5 bulging disc/ lower back pain x several wk's with numbness and pain to left leg. States this Am was incontinent of urine this AM. This has not happen before. Talked to Dr Worrell. Was told to go to ED documented in this encounter Plan of Treatment Scheduled Referrals Name Type Priority Associated Diagnoses Order S chedule Follow Up Follow Up Routine Ordered: 2013 documented as of this encounter Procedures Procedure Name Priority Date/Time Associated Comments Diagnosis XR CHEST AP PORT Routine 08/09/2013 6:34 AM Resul ts for this CDT procedure are i n the results section. URINALYSIS Routine 08/08/2013 7:40 PM Results f or this MICROSCOPY (LAB USE CDT procedur e are in ONLY) the results section. URINALYSIS W/ Routine 08/08/2013 7:40 PM Results for this MICROSCOPY AND/OR CDT procedure are in UC, IF INDICATED the results section. CULT-URINE Routine 08/08/2013 7:40 PM Results f or this CDT procedure are i n the results section. MRI SPINE LUMBAR W/O STAT 08/08/2013 2:15 PM R esults for this CON CDT procedure are i n the results section. documented in this encounter Results XR CHEST AP PORT (08/09/2013 6:34 AM CDT) Anatomical Region Laterality Modality Chest Computed Radiography Specimen (Source) Anatomical Collection Method Collection Time Re ceived Time Location / / Volume Laterality 08/09/2013 6:37 AM CDT Impressions 08/09/2013 6:37 AM CDT IMPRESSION: No acute infiltrate is seen. Narrative 08/09/2013 6:37 AM CDT EXAMINATION: Portable chest, one view. ??08/09/2013 6:34 AM CLINICAL DATA: Cough. ? COMPARISON: 05/31/2009. FINDINGS: One view was performed. The he art size is ??normal. ??No infiltrate is identified. ??No pleural effusions are seen. ??The bony thorax is unremarkable. Procedure Note Dustin Melendez MD - 08/09/2013Forma tting of this note might be different from the original. EXAMINATION: Portable chest, one view. 6:34 AM CLINICAL DATA: Cough. COMPARISON: 05/31/2009. FINDINGS: One view was performed. The he art size is normal. No infiltrate is identified. No pleural effusions are seen. The bony thorax is unremarkable. IMPRESSION: No acute infiltrate is seen. Rosanna Carrion MD XRAY ORDERABLE Culture-Urine (08/08/2013 7:40 PM CDT) [facility] Method Time Signature Urine Culture Mixed lisa 08/09/2013 [facility] L with 3 or 4:11 PM CDT LABORATORY more organisms present. Each organism under 10,000 cfu/ml. Comment: Probable collection contaminate s or catheter colonization. Specimen Anatomical Collection Method Collection Time Receive d Time (Source) Location / / Volume Laterality Urine specimen URINE SPECIMEN / 08/08/2013 7:40 PM 01/2014 7:54 (specimen) Unknown CDT PM CDT Nataliya Tomlinson MD MICROBIOLOGY ORDERABLE Performing Organization Address City/State/ZIP Code Phon e Number [facility] [address] [place] [address] [phone] LABORATORY [facility] [address] [place], [place] [address] (ABNORMAL) Urinalysis Microscopy (Lab Use Only) (08/08/2013 7:40 PM CDT) [facility] Method Time Signature WBC-UA MICRO Occasional None Seen, 08/08/2013 [facility] Occasional, 8:11 PM CDT [facility] Few, 1-4 /hpf LABORATORY RBC-UA 1-4 (A) None Seen, 08/08/2013 [facility] Occasional 8:11 PM CDT [facility] /hpf LABORATORY Specimen Anatomical Collection Method Collection Time Receive d Time (Source) Location / / Volume Laterality Urine specimen URINE SPECIMEN / 08/08/2013 7:40 PM 01/2014 7:54 (specimen) Unknown CDT PM CDT Nataliya Tomlinson MD URINE ORDERABLE Performing Organization Address City/State/ZIP Code Phon e Number [facility] [address] [place] [address] LABORATORY [facility] [address] [place], [place] [address] (ABNORMAL) Urinalysis w/ Microscopy and/or UC (08/08/2013 7:40 PM CDT) [facility] gist Method Time Signature PH URINE 6.0 4.5 - 8.0 08/08/2013 [facility] 7:56 PM CDT LABORATORY SP.GRAVITY, 1.010 (L) 1.015 - 08/08/2013 [facility] UA 1.025 7:56 PM CDT LABORATORY PROTEIN, UA Negative Negative 08/08/2013 [facility] mg/dL 7:56 PM CDT LABORATORY GLUCOSE, UA 100 (A) Negative 08/08/2013 [facility] mg/dL 7:56 PM CDT LABORATORY KETONE, UA Negative Negative 08/08/2013 [facility] mg/dL 7:56 PM CDT LABORATORY BILIRUBIN, UA Negative Negative 08/08/2013 [facility] 7:56 PM CDT LABORATORY OCCULT BLOOD, Small (A) Negative, 08/08/2013 [facility] UA Trace, 7:56 PM CDT LABORATORY TRACE-LYSED, TRACE-INTACT UROBILINOGEN, 0.2 0.2 - 1.0 08/08/2013 [facility] UA EU/dL 7:56 PM CDT LABORATORY WBC ESTERASE, Negative Negative, 08/08/2013 [facility] UA Trace 7:56 PM CDT LABORATORY NITRITE, UA Negative Negative 08/08/2013 [facility] 7:56 PM CDT LABORATORY Specimen Anatomical Collection Method Collection Time Receive d Time (Source) Location / / Volume Laterality Urine specimen URINE SPECIMEN / 08/08/2013 7:40 PM 01/2014 7:54 (specimen) Unknown CDT PM CDT Nataliya Tomlinson MD MICROBIOLOGY ORDERABLE Performing Organization Address City/State/ZIP Code Phon e Number [address] [address] [address] [address] MRI SPINE LUMBAR WO IV CONTRAST (08/08/2013 2:15 PM CDT) Anatomical Region Laterality Modality Spine Magnetic Resonance Specimen (Source) Anatomical Collection Method Collection Time Re ceived Time Location / / Volume Laterality 08/08/2013 2:31 PM CDT Impressions 08/09/2013 10:04 AM CDT IMPRESSION: No change in the disc bulge with superim posed right paracentral disc extrusion at L5-S1 which extends inferiorly to impinge the traversing right S1 nerve root. Bilateral neural foraminal narrowing at L5-S1. Overall there is no significant change. Narrative 08/09/2013 10:04 AM CDT EXAM: MRI LUMBAR SPINE WITHOUT CONTRAST, 08/08/2013 CLINICAL DATA: Back and right leg pain s een in the ED 08/05/2013. Now with numbness in the left leg with urinary incontinence. No previous surgery. Epidural steroid injection Friday. COMPARISON: 08/01/2013 TECHNIQUE: Sagittal T1 FLAIR, T2, fat sa t T2; axial T1, T2 FINDINGS: These images are degraded by m otion. The patient was sleeping during the exam. Again seen is the degenerative changes a t L5-S1. No abnormal marrow signal. The conus medullaris is seen at L1-2 level. No compression fractures. There is a hypoplastic disc at S1-2. Findings at specific interspaces: L1-2: No central canal or neural foramin al stenosis. L2-3: No central canal nor neural forami nal stenosis. L3-4: No central canal or neural foramin al stenosis. L4-5: Minimal disc bulge. No central can al stenosis. No neural foraminal narrowing. Mild facet arthropathy. L5-S1: There is a mild broad-based disc bulge. There is a superimposed right paracentral disc protrusion which extends inferiorly to impinge the right S1 nerve root within the lateral recess. No central spinal canal stenosis. There is moderat e bilateral neural foraminal narrowing, right greater than left. There is facet arthropathy. This has not changed compared to the previous study. Procedure Note Marissa Rodgers MD - 08/09/2013Forma tting of this note might be different from the original. EXAM: MRI LUMBAR SPINE WITHOUT CONTRAST, 08/08/2013 CLINICAL DATA: Back and right leg pain s een in the ED 08/05/2013. Now with numbness in the left leg with urinary incontinence. No previous surgery. Epidural steroid injection Friday. COMPARISON: 08/01/2013 TECHNIQUE: Sagittal T1 FLAIR, T2, fat sa t T2; axial T1, T2 FINDINGS: These images are degraded by m otion. The patient was sleeping during the exam. Again seen is the degenerative changes a t L5-S1. No abnormal marrow signal. The conus medullaris is seen at L1-2 level. No compression fractures. There is a hypoplastic disc at S1-2. Findings at specific interspaces: L1-2: No central canal or neural foramin al stenosis. L2-3: No central canal nor neural forami nal stenosis. L3-4: No central canal or neural foramin al stenosis. L4-5: Minimal disc bulge. No central can al stenosis. No neural foraminal narrowing. Mild facet arthropathy. L5-S1: There is a mild broad-based disc bulge. There is a superimposed right paracentral disc protrusion which extends inferiorly to impinge the right S1 nerve root within the lateral recess. No central spinal canal stenosis. There is moderate bilateral ne ural foraminal narrowing, right greater than left. There is facet arthropathy. This has not changed compared to the previous study. IMPRESSION: No change in the disc bulge with superim posed right paracentral disc extrusion at L5-S1 which extends inferiorly to impinge the traversing right S1 nerve root. Bilateral neural foraminal narrowing at L5-S1. Overall there is no significant change. 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 Glucosuria Glycosuria documented in this encounter Administered Medications Inactive Administered Medications - up to 3 most recent administrations Medication Order MAR Action Action Date Dose Rate Site saline FLUSH syringe 5 mL Given 08/09/2013 5:51 AM CDT 5 mL 5 mL, Intravenous, EVERY 8 HOURS, First dose on 08/08/13 at 2200, Until Discontinued Given 08/08/2013 9:05 PM CDT 5 mL acetaminophen (TYLENOL) tablet 650 mg Given 08/09/2013 2:00 PM CDT 650 mg 650 mg, oral, EVERY 6 HOURS, First dose on 08/09/13 at 1400, Until Discontinued BOLUS SODIUM CHLORIDE 0.9% IV SOLN 1 New Bag 08/08/2013 3:25 PM CD T 1,000 mL LITER 1 dose, Starting on 08/08/13 at 1455, Until Fri08/08/13 at 1525 cyclobenzaprine (FLEXERIL) tablet 10 mg Given 08/09/2013 2:00 PM CDT 10 mg 10 mg, oral, THREE TIMES A DAY, First dose on Fri08/08/13 at 2200, Until Discontinued Given 08/09/2013 8:32 AM CDT 10 mg Given 08/08/2013 9:05 PM CDT 10 mg dexamethasone (DECADRON) injection 4 mg Given 08/08/2013 12:00 PM CDT 4 mg 4 mg, Intravenous, ONCE, 1 dose, On 08/08/13 at 1200 dexamethasone (DECADRON) tablet 4 mg Given 08/09/2013 2:00 PM CDT 4 mg 4 mg, oral, EVERY 8 HOURS, First dose on Fri08/09/13 at 0600, Until Discontinued Given 08/09/2013 5:52 AM CDT 4 mg HYDROmorphone (DILAUDID) syringe 1 mg Given 08/08/2013 12:00 PM CDT 1 mg 1 mg, Intravenous, EVERY 30 MINUTES NEEDED, 3 doses, Starting on 08/08/13 at 1145, Until Fri08/08/13 at 1753, pain lidocaine ( LIDODERM ) 5 % patch Given 08/09/2013 12:07 AM CDT 1 each Right Knee REMOVAL 1 Each DAILY - PATCH REMOVAL FOR LIDO, First dose on Fri08/09/13 at 2000, Until Discontinued lidocaine ( LIDODERM ) 5% Given 08/09/2013 8:32 AM CDT 1 patch Right Upper Gluteal patch 1 patch, Transdermal, DAILY - APPLY PATCH, First dose on Fri08/08/13 at 2200, Until Discontinued Given 08/08/2013 10:08 PM CDT 1 patch Righ t Knee LORazepam (ATIVAN) injection (conc: 2 mg/mL) 1 Given 0 08/08/2013 1:29 PM CDT 1 mg mg 1 mg, Intravenous, ONCE NEEDED, MAY REPEAT X 1, 2 doses, Starting on 08/08/13 at 1158, Until Fri08/08/13 at 1753, anxiety, For MRI ONDANSETRON HCL (PF) 4 MG/2 ML INJECTION Given 08/08/2013 12:08 PM CDT 4 mg SOLUTION 1 dose, Starting on Fri08/08/13 at 1206, Until Fri08/08/13 at 1208 oxyCODONE (oxyCONTIN) ext-rel 12 hr tablet 10 Given 8:32 AM CDT 10 mg mg 10 mg, oral, TWICE A DAY, First dose on Fri08/09/13 at 0045, Until Discontinued, This medication has a Blackbox Warning. Click the formulary reference link for more information. Given 08/09/2013 1:03 AM CDT 10 mg oxyCODONE-acetaminophen (PERCOCET) 5 Given 08/09/2013 8:32 AM CD T 2 tablets mg-325 mg tablet 1-2 Tab 1-2 tablet, oral, EVERY 4 HOURS NEEDED, Starting on 08/08/13 at 1753, Until 08/09/13 at 2008, pain Given 08/09/2013 3:51 AM CDT 2 tablets Given 08/08/2013 11:19 PM CDT 2 tablets OXYMETAZOLINE 0.05 % NASAL Given 08/08/2013 1:30 PM CDT 2 sprays Bilateral Nare SPRAY AEROSOL 1 dose, Starting on 08/08/13 at 1326, Until 08/08/13 at 1330, Use for periods exceeding 3 days may result in severe rebound nasal congestion pantoprazole (PROTONIX) delayed-rel tablet 40 Given 6:51 PM CDT 40 mg mg 40 mg, oral, DAILY, First dose on 08/08/13 at 1800, Until Discontinued pantoprazole (PROTONIX) delayed-rel tablet 40 Given 8:32 AM CDT 40 mg mg 40 mg, oral, DAILY, First dose (after last modification) on 08/09/13 at 0800, Until Discontinued senna (SENOKOT) tablet 1-2 Tab Given 08/09/2013 8:32 AM CDT 2 tablets 1-2 tablet, oral, TWICE A DAY, First dose on 08/08/13 at 2000, Until Discontinued Given 08/08/2013 9:05 PM CDT 2 tablets SODIUM CHLORIDE 0.9 % INTRAVENOUS SOLUTI ON 1 dose, Starting on 08/08/13 at 1314, Until Sun at 1318 sodium chloride 0.9 % IV soln 500 New Bag 08/08/2013 1:18 PM C DT 500 mL 500 mL/hr mL at 500 mL/hr, Intravenous, ONCE, 1 dose, On 08/08/13 at 1315 documented in this encounter Active and Recently Administered Medications Due to Daylight Saving Time, this section may contain times in both IT ADMIN and CDT. Scheduled Medication Order 08/07/2013 08/08/201308/0908/09/2013 saline FLUSH syringe 5 mL (CANCELED) 2 105 (Given - Provider: Belen Diaz RN) 0551 (Given - Provider: Belen rodas RN)1400 (Not Given - Provider: Lisa Sullivan RN - Reason: Clinically appropriate (comment) - Comment: iv site removed) 5 mL, Intravenous, EVERY 8 HOURS, First dose on Fri08/08/13 at 2200, Until Discontinued acetaminophen (TYLENOL) tablet 650 mg (CANCELED) 1400 (Given - Provider: Lisa Sullivan RN) 650 mg, Oral, EVERY 6 HOURS, First dose on Fri08/09/13 at 1400, Until Discontinued cyclobenzaprine (FLEXERIL) tablet 10 mg 2105 (Given - Provider: Belen Diaz RN) 0832 (Given - Provider: Good Fairchild N)1400 (Given - Provider: Lisa Sullivan RN) 10 mg, Oral, THREE TIMES A DAY, First do se on Fri08/08/13 at 2200, Until Discontinued dexamethasone (DECADRON) injection 4 mg (COMPLETED) 1200 (Given - Provider: Aminata Aaron) 4 mg, Intravenous, ONE TIME DOSE, 1 dose, Fri08/08/13 at 1200 dexamethasone (DECADRON) tablet 4 mg (CANCELED) 0552 (Given - Provider: Belen Diaz RN)1400 (Given - Provider: Lisa Sullivan RN) 4 mg, Oral, EVERY 8 HOURS, First dose on Fri08/09/13 at 0600, Until Discontinued lidocaine ( LIDODERM ) 5 % patch REMOVAL 1 Each (CANCELED) 0007 (Given - Provider: Belen Diaz RN)1000 (Canceled Entry - Provider: Belen Diaz RN) DAILY - PATCH REMOVAL FOR LIDO, First do se on Fri08/09/13 at 2000, Until Discontinued lidocaine ( LIDODERM ) 5% patch (CANCELED) 2207 (Given - Provider: Belen Diaz RN - Comment: just below right knee medially) 0832 (Given - Provider: Lisa Sullivan RN) 1 Patch, Transdermal, DAILY - APPLY PATC H, First dose on 08/08/13 at 2200, Until Discontinued oxyCODONE (oxyCONTIN) ext-rel 12 hr tablet 10 mg (CANCELED) 0103 (Given - Provider: Belen Diaz RN)0832 (Given - Provider: Lisa Sullivan, MADELYN) 10 mg, Oral, TWICE DAILY, First dose on 08/09/13 at 0045, Until Discontinued, This medication has a Blackbox Warning. Click the formulary reference link for more information. pantoprazole (PROTONIX) delayed-rel tablet 40 mg (CANCELED) 185 (Given - Provider: Aviva Ham, MADELYN) 40 mg, Oral, DAILY, First dose on 08/08/13 at 1800, Until Disc ontinued pantoprazole (PROTONIX) delayed-rel tablet 40 mg (CANCELED) 0832 (Given - Provider: Lisa Sullivan, MADELYN) 40 mg, Oral, DAILY, First dose on Fri08/09/13 at 0800, Until Dis continued senna (SENOKOT) tablet 1-2 Tab 1999 (May lined - Provider: Belen Diaz RN - Comment: refused at this time,)2105 (Given - Provider: Belen Diaz RN) 0832 (Given - Provider: Lisa Sullivan, R N) 1-2 Tab, Oral, TWICE DAILY, First dose o n 08/08/13 at 2000, Until Discontinued sodium chloride 0.9 % IV soln 500 mL (COMPLETED) 1318 (New Bag - Provider: Kaelyn Lane RN) at 500 mL/hr, Intravenous, ONCE, 1 dose, On 08/08/13 at 1315 PRN Medication Order 08/07/2013 08/08/2013 08/09/2013 HYDROmorphone (DILAUDID) syringe 1 mg (CANCELED) 1200 (Given - Provider: Aminata Aaron) 1 mg, Intravenous, EVERY 30 MINUTES N EEDED, 3 doses, Starting 08/08/13 at 1145, Until 08/08/13 at 1753, Pain LORazepam (ATIVAN) injection (conc: 2 mg/mL) 1 mg (CANCELED) 1329 (Given - Provider: Kaelyn Lane, MADELYN) 1 mg, Intravenous, ONE TIME DOSE NEED ED, MAY REPEAT X 1, 2 doses, Starting 08/08/13 at 1158, Until 08/08/13 at 1753, Anxiety, For MRI oxyCODONE-acetaminophen (PERCOCET) 5 mg-325 mg tablet 1-2 Ta b (CANCELED) 1850 (Given - Provider: Aviva Ham, MADELYN)2319 (Given - Provider: Belen Diaz, MADELYN) 0351 (Given - Provider: Belen rodas, RN)0832 (Given - Provider: Lisa Sullivan, MADELYN) 1-2 Tab, Oral, EVERY 4 HOURS NEEDED, Starting 08/08/13 at 1753, Until 08/09/13 at 2008, Pain No Frequency Medication Order 08/07/2013 08/08/2013 08/09/2013 BOLUS SODIUM CHLORIDE 0.9% IV SOLN 1 LITER (COMPLETED) 1525 (New Bag - Provider: Aminata Aaron) 1 dose, Starting on 08/08/13 at 1455, Until 08/08/13 at 1525 ONDANSETRON HCL (PF) 4 MG/2 ML INJECTION SOLUTION (COMPLETED ) 1208 (Given - Provider: Aminata Aaron) 1 dose, Starting 08/08/13 at 1206, Until 08/08/13 at 1208 OXYMETAZOLINE 0.05 % NASAL SPRAY AEROSOL (COMPLETED) 1330 (Given - Provider: Kaelyn Lane, MADELYN) 1 dose, Starting on 08/08/13 at 1326, Until 08/08/13 at 1330, Use for periods exceeding 3 days may result in severe rebound nasal congestion documented in this encounter Care Teams Marzipan Molder Relationship Specialty Start Date End Date None, PCP - General 05/31/09 08/25/13 Clinic, No Primary PCP - [facility] 05/31/09 08/29/13 documented as of this encounter
--- NOTE | 2022-02-13 11:55 | CRLHL7_ITS ---
For Patients: As a result of the Century Cures Act, medical imaging exams and procedure reports are released immediately into your electronic medical record. You may view this report before your referring provider. If you have questions, please contact your health care provider. INDICATION: Lower abdominal pain, suprapubic region. ? diverticulitis. TECHNIQUE: CT abdomen and pelvis acquired with 79 mL Isovue 370 IV contrast. Coronal and sagittal reformats were generated. COMPARISON: CT of the abdomen and pelvis from 10/03/2021. FINDINGS: Lower chest: Small sliding hiatal hernia. Liver: Unremarkable. Gallbladder and bile ducts: Surgically absent gallbladder. Prominent common bile duct and intrahepatic biliary dilation are likely the result of reservoir effect. Spleen: Unremarkable. Splenule in the hilum. Pancreas: Unremarkable. Adrenal glands: Unremarkable. No nodules. Kidneys and Ureters: Unremarkable. No suspicious masses, stones, or hydronephrosis. Multiple bilateral parapelvic cysts. Lymph Nodes and Retroperitoneum: Unremarkable. Vasculature: Atherosclerotic calcifications of the abdominal aorta and its branches. GI tract: Numerous diverticula project from the colon. No inflammatory changes to suggest diverticulitis. Bowel loops are normal in caliber. Normal appendix. Peritoneum/Abdominal Wall: Unremarkable. No mass or infiltration. No free air or free fluid. Pelvic Viscera: The endometrial canal is thickened measuring 15 mm on sagittal reformats (). Otherwise, unremarkable. Bladder: Unremarkable. Bones: Unremarkable for age. IMPRESSION: 1. Diverticulosis without diverticulitis. 2. Abnormally thickened endometrial stripe. While this could be endometrial hyperplasia, endometrial malignancy is also possible. Consider direct endometrial sampling, if not already performed. 3. No other significant CT abnormality or findings to explain the cause of the patient`s symptoms. Please note that all CT scans at this facility use dose modulation, iterative reconstruction, and/or weight-based dosing when appropriate to reduce radiation dose to as low as reasonably achievable. Dictated by Sunil Monroe MD @ 02/13/2022 12:47:52 PM (Electronically Signed)
[2022-02-13 12:00] VITALS: BP 129/68; PULSE 67; O2SAT 96
[2022-02-13 12:09] LABS: Slide Review Reflex No
[2022-02-13 12:30] VITALS: BP 150/80
== END 2022-02-13 13:41 | disposition home or self-care (01) ==
PROVIDERS: Emergency Provider Student in an Organized Health Care Education/Training Program
DX: N85.01 Benign endometrial hyperplasia (principal); R10.30 Lower abdominal pain, unspecified
CPT/HCPCS: 36415; 74177; 80053; 81003; 81015; 83690; 85025; 86140; 96374; 99283; 99284; J1885; J7120; Q9967

== ENCOUNTER 2022-05-28 15:33 | Emergency (ER) | payer MEDICARE, OTHER, SELFPAY ==
[2022-05-28 15:46] VITALS: BP 146/68; PULSE 78; RESP 16; TEMP 36.7; O2SAT 97; BMI 28.0
--- NOTE | 2022-05-28 16:04 | CRLHL7_ITS ---
For Patients: As a result of the Cures Act, medical imaging exams and procedure reports are released immediately into your electronic medical record. You may view this report before your referring provider. If you have questions, please contact your health care provider. INDICATION: Chest pain. TECHNIQUE: Chest/left ribs 3 views. COMPARISON: None. FINDINGS: Cardiovascular and mediastinum: Heart size and vasculature are normal in caliber and appearance. Lungs and pleural spaces: Lungs are clear. No sign of infiltrate or mass. No sign of pleural effusion. No pneumothorax. Bones and soft tissues: No significant findings. IMPRESSION: No acute or significant findings. Dictated by Elan Carolina MD @ 05/28/2022 5:08:36 PM (Electronically Signed)
[2022-05-28] MEDS: OxyCODONE/APAP 5-325 TABLET 1 TAB PO (16:15)
[2022-05-28 16:18] VITALS: PULSE 73; O2SAT 96
[2022-05-28 16:21] LABS: Appearance Urine Clear (Clear); Bilirubin Urine Negative (Negative); Blood Urine 1+ (Negative); Color Urine Yellow (Yellow); Glucose Urine Negative (Negative); Ketones Urine Negative (Negative); Leukocyte Esterase Urine Negative (Negative); Nitrite Urine Negative (Negative); Protein Urine Negative (Negative); Urobilinogen Urine 0.2 (0.2-1.0); pH Urine 5.5 (5.0-8.5)
--- NOTE | 2022-05-28 16:22 | ED.BACK ---
HPI - Back Pain/Injury General Date Seen: 05/28/22 Chief Complaint: Back Injury/Pain Stated Complaint: Left Mid-Back Pain,Possible Kidney Issue Time Seen by Provider: 05/28/22 15:41 Source: patient Mode of arrival: ambulatory Limitations: no limitations History of Present Illness HPI Narrative: Patient is the 82-year-old female who presents here, she noted left-sided flank and chest discomfort, that occurred after she turned over yesterday in bed, it was sort of bad yesterday but has become more progressive today whenever she twists or turns, when she lies quiet she does not really have any pain at all. She did take a leftover pain medication she had from her previous surgery he did notice a lot of relief with this she denies any cough syncope fevers chills leg swelling or previous history of such, she is brought in by her son elicited complaint: back pain Onset (ago): day(s) Timing: constant Severity: moderate Similar Symptoms Previously: No Quality: stabbing Location: left flank Radiation: none Exacerbating factors: movement Relieving factors: none Context: turning/twisting and bending Associated symptoms: denies other symptoms Work related injury: No Related Data Home Medications Medication Instructions Recorded Confirmed ondansetron HCl 4 mg tablet mg 02/06/22 oxycodone 5 mg tablet mg 02/06/22 potassium chloride 20 mEq meq PO 02/06/22 tablet,extended release(part/cryst) Previous Rx's Medication Instructions Recorded ondansetron HCl 4 mg tablet 4 mg PO DAILY PRN nausea and 02/06/22 vomiting #15 tabs Allergies Allergy/AdvReac Type Severity Reaction Status Date / Time No Known Drug Allergies Allergy Verified 05/28/22 16:19 Review of Systems Status of ROS: Reports: 10 or more systems reviewed and unremarkable except as noted in History and below PFSH PFSH Social History Smoking Status: Current every day smoker What tobacco products do you use: cigarettes Smoking packs per day: 0.5 Smoking cigarettes per day: 10.0 Years smoked: 69 Smoking pack-years: 34.50 Do you use any of these nicotine containing products: None Second hand tobacco smoke exposure: No How often do you have a drink containing alcohol: monthly or less How many standard drinks containing alcohol do you have on a typical day: 1 or 2 How often do you have six or more drinks on one occasion: Never AUDIT-C Alcohol total score: 1 Non-prescribed substance use: denies use service: No Exam Narrative: Exam Narrative: On examination in room 5 she is in no apparent distress nontoxic speaking to me normally, she is able to sit up, although slow, any sort of twisting or turning tends to exacerbate it, she is point tender over the posterior axillary line, I do not see any evidence of bruising here, she has good air entry bilaterally with no wheezing crackles noted heart sounds are normal, her abdomen is otherwise soft there is no guarding no organomegaly noted bowel sounds are normal. Skin reveals no petechiae or rashes. Const: Vital Signs, click to edit/add: Vital Signs - 24 hr 05/28/22 15:46 05/28/22 16:18 Temperature 98.0 F Pulse Rate 73 Pulse Rate [Pulse Oximeter] 78 Respiratory Rate 16 Blood Pressure [Le ft Upper Arm] 146/68 H Pulse Oximetry 97 96 Oxygen Delivery Me thod Room Air Documenting provider has reviewed patient's vital signs: yes Course Vital Signs Vital signs: Initial Vital Signs Temperature 98.0 F 05/28/22 15:46 Temperature Source Temporal Artery Scan 05/28/22 15:46 Pulse Rate 78 05/28/22 15:46 Respiratory Rate 16 05/28/22 15:46 Blood Pressure 146/68 H 05/28/22 15:46 Blood Pressure Mean 94 05/28/22 15:46 Blood Pressure Position Supine 05/28/22 15:46 Pulse Oximetry 97 05/28/22 15:46 Oxygen Delivery Method 05/28/22 15:46 Vital Signs Temperature 98.0 F 05/28/22 15:46 Pulse Rate 78 05/28/22 15:46 Respiratory Rate 16 05/28/22 15:46 Blood Pressure 146/68 H 05/28/22 15:46 Pulse Oximetry 97 05/28/22 15:46 Oxygen Delivery Method 05/28/22 15:46 Temperature 98.0 F 05/28/22 15:46 Pulse Rate 62 05/28/22 17:07 Respiratory Rate 16 05/28/22 15:46 Blood Pressure 111/70 05/28/22 17:06 Pulse Oximetry 97 05/28/22 17:07 Oxygen Delivery Method 05/28/22 15:46 MDM - Back Pain/Injury Differential Diagnosis Differential diagnosis: Likely lumbar radiculopathy, sciatica, strain of lumbar region, renal colic, pyelonephritis and thoracic back pain Medical Records Attestation: I reviewed the patient's medical records. Lab Data Attestation: I reviewed the patient's lab results. Labs: Lab Results 05/28/22 Range/Units 16:04 Urine Color Yellow (Yellow) Urine Appearance Clear (Clear) Urine pH 5.5 (5.0-8.5) Ur Specific [place] 1.020 (1.000-1.030) Urine Protein Negative (Negative) Urine Glucose (UA) Negative (Negative) Urine Ketones Negative (Negative) Urine Blood 1+ A (Negative) Urine Nitrite Negative (Negative) Urine Bilirubin Negative (Negative) Urine Urobilinogen 0.2 (0.2-1.0) Ur Leukocyte Esterase Negative (Negative) Urine RBC 2-5 A (0-2) Urine WBC 0-2 (0-5) Ur Squamous Epith Cells Few (None-Few) Urine Bacteria None (None) Imaging Data Chest x-ray: Attestation: I have reviewed the pertinent imaging results. My impression: Chest x-ray with rib views showed no acute findings Discharge Plan Discharge Clinical Impression: Contusion of rib on left side Patient Disposition: Home w/ Parent or Adult Condition: Stable Instructions: Rib Contusion (ED) Additional Instructions: I think this is likely a pulled rib, or possibly a contusion, there was an evidence of possibly a hairline crack on rib 5 that I saw, and I wonder if that is possibly the area. Would recommend the continue with Tylenol, small supply of pain medication given, follow-up with primary care, return here if increasing chest pain shortness of breath passing out or any other atypical symptoms. Prescriptions: No Action ondansetron HCl 4 mg tablet Label Comments: TAKE ONE TO TWO TABLETS BY MOUTH EVERY 8 HOURS NEEDED FOR NAUSEA potassium chloride 20 mEq tablet,ER particles/crystals PO Label Comments: TAKE ONE TABLET BY MOUTH EVERY DAY oxycodone 5 mg tablet Label Comments: TAKE 1 TO 2 TABLETS BY MOUTH 4 TO 6 HOURS NEEDED FOR PAIN. MAX 6 TABS/DAY ondansetron HCl 4 mg tablet 4 mg PO DAILY PRN (Reason: nausea and vomiting) Qty: 15 0RF Follow Up/Referrals: Provider,Not a Local [Primary Care Provider] - Stand Alone Forms: MyHealth Info Instructions
[2022-05-28 16:39] LABS: Squamous Epithelial Cell Urine Few (None-Few); WBC Urine 0-2 (0-5)
[2022-05-28 17:00] VITALS: PULSE 62; O2SAT 98
[2022-05-28 17:05] VITALS: PULSE 63; O2SAT 99
[2022-05-28 17:06] VITALS: BP 111/70; PULSE 66; O2SAT 98
[2022-05-28 17:07] VITALS: PULSE 62; O2SAT 97
== END 2022-05-28 17:56 | disposition home or self-care (01) ==
PROVIDERS: Emergency Provider Family Medicine
DX: S20.212A Contusion of left front wall of thorax, initial encounter (principal)
CPT/HCPCS: 71101; 81001; 99284; A9270

== ENCOUNTER 2022-07-01 09:42 | Emergency (ER) | payer MEDICARE, OTHER, SELFPAY ==
[2022-07-01 09:54] VITALS: BP 151/77; PULSE 76; RESP 24; TEMP 36.5; O2SAT 92; BMI 28.0
[2022-07-01 11:00] VITALS: BP 139/80; PULSE 77; RESP 22; O2SAT 93
--- NOTE | 2022-07-01 14:48 | ED.GENADULT ---
HPI - General Adult General Date Seen: 07/01/22 Chief complaint: Shortness of Breath/Dyspnea Stated complaint: Pneumonia/O2 87 Time Seen by Provider: 07/01/22 09:43 Source: patient and family Mode of arrival: ambulatory Limitations: no limitations History of Present Illness HPI narrative: Patient is an 82-year-old woman here for evaluation of pneumonia and hypoxia. Her son is here with her. They tell me that she was seen last , 5 days ago, for complaints of cough and shortness of breath. This was at [facility]. She tells me that she had an evaluation there including blood work and a chest x-ray. The initial diagnosis was of pneumonia and bronchitis, and she was started on a Z-Kadeem, prednisone and nebulizers. She does have a history of smoking although she does not smoke anymore. She says that she has been checked out for COPD and does not have it. Over the following couple of days, she felt like she really was not improving as much as she thought she should be, and so yesterday she was seen again at [place], by a different physician. Her son says that they really did not like that doctor, that he came into the room and immediately said that she did not have pneumonia, that she had COPD, that the 1st doctor only put her on antibiotics because he just wanted to have some kind of medicine to give her. However, then he apparently did a chest x-ray, came back into the room and told her that she did have pneumonia after all. He discharged her with a new prescription for amoxicillin 500 mg t.i.d.. She comes in today because she continues to have a cough, and also this morning her oxygen saturations at home were 87%. She did a neb and they improved, but her son thought she should be seen for re-evaluation. She has not been having chest pain or fevers. She was put on a prednisone taper again yesterday, 30 mg daily for 3 days, then 20 mg then 10 mg. She does not like taking the prednisone as she says it gives her a headache. However, she has been taking it. She does not have a primary doctor, she lives in [place], her old doctor is in [place] and she has not reestablished primary care. They do not trust the clinic in [place] now, and so are looking for somewhere else to go. Related Data Home Medications Medication Instructions Recorded Confirmed ondansetron HCl 4 mg tablet mg 02/06/22 oxycodone 5 mg tablet mg 02/06/22 potassium chloride 20 mEq meq PO 02/06/22 tablet,extended release(part/cryst) Previous Rx's Medication Instructions Recorded ondansetron HCl 4 mg tablet 4 mg PO DAILY PRN nausea and 02/06/22 vomiting #15 tabs Allergies Allergy/AdvReac Type Severity Reaction Status Date / Time No Known Drug Allergies Allergy Verified 05/28/22 16:19 Review of Systems Status of ROS: Reports: 10 or more systems reviewed and unremarkable except as noted in History and below [facility] Social History Smoking Status: Current every day smoker What tobacco products do you use: cigarettes Smoking packs per day: 0.5 Smoking cigarettes per day: 10.0 Years smoked: 69 Smoking pack-years: 34.50 Do you use any of these nicotine containing products: None Second hand tobacco smoke exposure: No How often do you have a drink containing alcohol: monthly or less How many standard drinks containing alcohol do you have on a typical day: 1 or 2 How often do you have six or more drinks on one occasion: Never AUDIT-C Alcohol total score: 1 Non-prescribed substance use: denies use service: No Exam Narrative: Exam Narrative: Vital signs as noted above. In general, an alert, nontoxic woman, breathing easily. Head: Normocephalic, atraumatic. Eyes: Pupils are equal reactive. Extraocular movements are full. Conjunctivae are normal. ENT: Mucous membranes are moist. Throat is normal. Neck: Supple without lymphadenopathy. Heart: Regular rate and rhythm. No murmur or rub. Lungs: Scattered wheezes bilaterally, no increased work of breathing. No crackles. Abdomen: Soft and nontender. No organomegaly. Extremities: Well perfused. No edema. No calf tenderness. Pulses intact. Neurologic: Patient is alert and oriented to person and place. Speech is fluent. Face is symmetric. Moves all extremities equally. Affect: Normal. Skin: Warm and dry. Well perfused. Const: Vital Signs, click to edit/add: Vital Signs - 24 hr 07/01/22 09:54 07/01/22 11:00 Temperature 97.7 F Pulse Rate [Right Pulse Oximeter] 76 77 Respiratory Rate 24 22 Blood Pressure [Ri ght Upper Arm] 151/77 H 139/80 Pulse Oximetry 92 93 Oxygen Delivery Me thod Room Air Room Air Documenting provider has reviewed patient's vital signs: yes Course Course Hospital Course: Patient's O2 sats here are 92-94% on room air. She does have scattered wheezes, suggesting an element of bronchospasm. Interestingly, she told me she does not smoke but seems to have told the nurse that she smokes half pack a day. I discussed with her that I suspect she does have a component of COPD contributing to her symptoms. In the absence of starting over with her workup, it is difficult for me to know whether she has pneumonia superimposed on this. I did offer to redo a workup here, but also acknowledge that she has already had this assessed now twice in the past 5 days. She is not really interested in having another evaluation done here today. I do think that if we are treating her for pneumonia that amoxicillin is not the appropriate antibiotic. Therefore, I recommended that we switch her to doxycycline if we are going to have her on an antibiotic for pneumonia. I would recommend that she continue with the prednisone and nebulizers. I think her O2 saturations are acceptable. She does seem to have good response to the nebulizers if she has some hypoxia related to bronchospasm. if she is having worsening shortness of breath, new symptoms such as fever, chills, weakness etcetera, she should be seen again more urgently. Otherwise, we talked about options for primary care as I do think she needs to have a primary care clinic established. [place] may be a good option for her. Vital Signs Vital signs: Initial Vital Signs Temperature 97.7 F 07/01/22 09:54 Temperature Source Temporal Artery Scan 07/01/22 09:54 Pulse Rate 76 07/01/22 09:54 Respiratory Rate 24 07/01/22 09:54 Blood Pressure 151/77 H 07/01/22 09:54 Blood Pressure Mean 101 07/01/22 09:54 Blood Pressure Position Sitting 07/01/22 09:54 Pulse Oximetry 92 07/01/22 09:54 Oxygen Delivery Method 07/01/22 09:54 Vital Signs Temperature 97.7 F 07/01/22 09:54 Pulse Rate 76 07/01/22 09:54 Respiratory Rate 24 07/01/22 09:54 Blood Pressure 151/77 H 07/01/22 09:54 Pulse Oximetry 92 07/01/22 09:54 Oxygen Delivery Method 07/01/22 09:54 Temperature 97.7 F 07/01/22 09:54 Pulse Rate 77 07/01/22 11:00 Respiratory Rate 22 07/01/22 11:00 Blood Pressure 139/80 07/01/22 11:00 Pulse Oximetry 93 07/01/22 11:00 Oxygen Delivery Method 07/01/22 11:00 Discharge Plan Discharge Clinical Impression: Bronchospasm, Pneumonia Patient Disposition: Home, Self-Care Condition: Stable Instructions: Community Acquired Pneumonia (DC) Additional Instructions: Doxycycline as prescribed. Continue prednisone and nebulizers. Anticipate gradual improvement. If worsening, return to ER. Would recommend establishing primary care with a clinic closer to, [place] may be a good option for you. Prescriptions: No Action ondansetron HCl 4 mg tablet Label Comments: TAKE ONE TO TWO TABLETS BY MOUTH EVERY 8 HOURS NEEDED FOR NAUSEA potassium chloride 20 mEq tablet,ER particles/crystals PO Label Comments: TAKE ONE TABLET BY MOUTH EVERY DAY oxycodone 5 mg tablet Label Comments: TAKE 1 TO 2 TABLETS BY MOUTH 4 TO 6 HOURS NEEDED FOR PAIN. MAX 6 TABS/DAY ondansetron HCl 4 mg tablet 4 mg PO DAILY PRN (Reason: nausea and vomiting) Qty: 15 0RF Follow Up/Referrals: Provider,Not a Local [Primary Care Provider] - Stand Alone Forms: MyHealth Info Instructions
== END 2022-07-01 11:02 | disposition home or self-care (01) ==
LOC: ED 11:01
PROVIDERS: Emergency Provider Emergency Medicine
DX: J18.9 Pneumonia, unspecified organism (principal); J98.01 Acute bronchospasm
CPT/HCPCS: 99283; 99284

== ENCOUNTER 2023-02-01 20:44 | Emergency (ER) | payer MEDICARE, OTHER, SELFPAY ==
[2023-02-01 20:54] VITALS: BP 154/96; PULSE 80; RESP 14; TEMP 36.3; O2SAT 100; BMI 29.6
--- NOTE | 2023-02-01 21:18 | ED_ITS ---
HPI - General Adult General Chief complaint: Extremity Pain/Injury, Lower Stated complaint: L leg swollen Time Seen by Provider: 02/01/23 21:00 History of Present Illness HPI narrative: Pt c/o swelling and heat at incision of left knee replacement. Pt also states she has been nauseated, it might be from the oxycodone, I think I need something weaker. Replacement done three weeks ago. Pt gagging during triage assessment 82-year-old woman presenting to the emergency department with complaint of increased pain in her left knee. She has about 4 weeks postop. Has been nauseated essentially since surgery. Is taking half a tab of oxycodone every hour and a half for so. Think that is probably what is contributing to her nausea. Can not really get herself to vomit though. 2 weeks ago was evaluated she says with similar swelling in the knee the redness did not seem to be there. Has not had any fever drainage. Just much more sensitive over the anterior aspect of the knee in particular. Had actually backed off exercise over the last couple of weeks due to the discomfort and swelling present before. Sounds like icing has been helpful. Related Data Home Medications Medication Instructions Recorded Confirmed ondansetron HCl 4 mg tablet mg 02/06/22 oxycodone 5 mg tablet mg 02/06/22 potassium chloride 20 mEq meq PO 02/06/22 tablet,extended release(part/cryst) aspirin 81 mg capsule 81 mg PO BID 02/01/23 02/01/23 cholecalciferol (vitamin D3) .ROUTE 02/01/23 hydrochlorothiazide PO 02/01/23 multivitamin with iron .ROUTE 02/01/23 rosuvastatin .ROUTE 02/01/23 Previous Rx's Medication Instructions Recorded ondansetron HCl 4 mg tablet 4 mg PO DAILY PRN nausea and 02/06/22 vomiting #15 tabs Allergies Allergy/AdvReac Type Severity Reaction Status Date / Time No Known Drug Allergies Allergy Verified 02/01/23 21:03 Review of Systems Status of ROS: Reports: 6 or more systems reviewed and unremarkable except as noted in History and below PFSH PFS Social History Smoking Status: Current every day smoker What tobacco products do you use: ciga rettes Smoking packs per day: 1 Smoking cigarettes per day: 20.0 Years smoked: 70 Smoking pack-years: 70.00 Do you use any of these nicotine containing products: None Second hand tobacco smoke exposure: No How often do you have a drink containing alcohol: never AUDIT-C Alcohol total score: 0 Non-prescribed substance use: denies use service: No Exam Narrative: Exam Narrative: Pleasant. NAD though moves her left leg and winces. Breathing easily. Emesis bag nearby. Heart in regular rate and rhythm. Examination of the left leg in question shows mild swelling over the anterior aspect. Well-healing surgical incision. Faintly erythematous blotchy mild calor generally over the anterior knee. Quite tender to palpation. Appears to be a little fluid in the area. Const: Vital Signs, click to edit/add: Vital Signs - 24 hr 02/01/23 20:54 02/02/23 00:10 02/02/23 01:00 Temperature 97.3 F L 97.3 F L Pulse Rate [Pulse Oximeter] 80 80 78 Respiratory Rate 14 14 18 Blood Pressure [Ri ght Upper Arm] 154/96 H 150/80 H 109/68 Pulse Oximetry 100 100 98 Oxygen Delivery Me thod Room Air Room Air Room Air 02/02/23 01:33 Temperature Pulse Rate [Pulse Oximeter] 77 Respiratory Rate 18 Blood Pressure [Ri ght Upper Arm] 109/68 Pulse Oximetry Oxygen Delivery Me thod Documenting provider has reviewed patient's vital signs: yes Course Vital Signs Vital signs: Initial Vital Signs Temperature 97.3 F L 02/01/23 20:54 Temperature Source Temporal Artery Scan 02/01/23 20:54 Pulse Rate 80 02/01/23 20:54 Respiratory Rate 14 02/01/23 20:54 Blood Pressure 154/96 H 02/01/23 20:54 Blood Pressure Mean 115 H 02/01/23 20:54 Blood Pressure Position Sitting 02/01/23 20:54 Pulse Oximetry 100 02/01/23 20:54 Oxygen Delivery Method Room Air 02/01/23 20:54 Vital Signs Temperature 97.3 F L 02/01/23 20:54 Pulse Rate 80 02/01/23 20:54 Respiratory Rate 14 02/01/23 20:54 Blood Pressure 154/96 H 02/01/23 20:54 Pulse Oximetry 100 02/01/23 20:54 Oxygen Delivery Method Room Air 02/01/23 20:54 Temperature 97.3 F L 02/02/23 00:10 Pulse Rate 77 02/02/23 01:33 Respiratory Rate 18 02/02/23 01:33 Blood Pressure 109/68 02/02/23 01:33 Pulse Oximetry 98 02/02/23 01:00 Oxygen Delivery Method Room Air 02/02/23 01:00 Medical Decision Making MDM Narrative Medical decision making narrative: Certainly could be a joint infection though I favor more activity related effusion. Will check labs though. Been no trauma. Zofran given. Ice pack. Trial 2 tabs of Waterfall for pain relief. Labs are reassuring. Perhaps not unexpectedly there is an elevated D-dimer. With her concern and limited mobility would be reasonable to do an ultrasound. Did order this ultrasound evaluation for DVT which per my conversation with desulfurizer machine was negative for clot. Waterfall did not appear to causes much nausea and I do think helped her somewhat with the pain. Might be prudent to go ahead and give antibiotics. Again I think that most likely return to exercises/activity is causing some effusion and pain. See patient discharge plan Lab Data Lab results reviewed: Yes I reviewed the patient's lab results Labs: Lab Results 02/01/23 02/01/23 02/01/23 Range/Units 21:52 22:14 22:49 WBC 5.86 (4.50-11.00) K/uL RBC 4.03 (4.00-5.20) m/uL Hgb 12.4 (12.0-16.0) gm/dL Hct 38.2 (33.0-51.0) % MCV 95 (80-100) fL MCH 31 (26-34) pg MCHC 33 (32-36) gm/dL RDW Coeff of Shira 13.1 (11.5-15.5) % Plt Count 350 (140-440) K/uL Neut % (Auto) 55.5 (42.0-72.0) % Lymph % (Auto) 32.9 (20-44) % [place] % (Auto) 8.4 (0.0-11.0) % Eos % (Auto) 2.9 (0.0-7.0) % Baso % (Auto) 0.3 (0.0-3.0) % Neut # (Auto) 3.25 (1.7-7.0) K/uL Lymph # (Auto) 1.93 (0.90-2.90) K/uL [place] # (Auto) 0.50 (0.00-0.90) K/UL Eos # (Auto) 0.17 (0.00-0.50) K/uL Baso # (Auto) 0.02 (0.00-0.30) K/uL Abs Immat Gran (auto) 0.00 (0.00-0.30) K/uL Imm/Tot Granulo (auto) 0.0 % D-Dimer Quant (PE/DVT) 2.79 H (0.00-0.50) ug/ml Sodium 137 (135-149) mmol/L Potassium 3.8 (3.6-5.1) mmol/L Chloride 102 (96-114) mmol/L Carbon Dioxide 29 (20-32) mmol/L Anion Gap 6 L (7-15) mEq/L BUN 14 (7-30) mg/dL Creatinine 0.8 (0.5-1.5) mg/dL Estimated Creat Clear 34.30 Estimated GFR 74 ml/min Glucose 127 H (60-115) mg/dL Calcium 10.2 (8.4-10.6) mg/dL C-Reactive Protein 0.9 (0.5-1.0) mg/dL Lab Acknowledgement Test Added Discharge Plan Discharge Clinical Impression: Postoperative pain of knee Patient Disposition: Home w/ Parent or Adult Condition: Stable Additional Instructions: I wonder if some of your knee pain is due to increased fluid from be exercises/increased activity you have been doing. I think is prudent to start an antibiotic and I will prescribe some cephalexin from the [facility]. Your white count though was normal. Since you tolerated Waterfall better, we can switch over to hydrocodone. Also given from [facility]. This can be combined with ibuprofen. I think that continuing regular icing is important. Over-read of the ultrasound is pending though I suspect that this will be consistent with what be desulfurizer machine has described at least absent a clot. Please call on Friday morning for follow-up with orthopedics. Prescriptions: No Action ondansetron HCl 4 mg tablet Patient Comments: TAKE ONE TO TWO TABLETS BY MOUTH EVERY 8 HOURS NEEDED FOR NAUSEA potassium chloride 20 mEq tablet,ER particles/crystals PO Patient Comments: TAKE ONE TABLET BY MOUTH EVERY DAY oxycodone 5 mg tablet Patient Comments: TAKE 1 TO 2 TABLETS BY MOUTH 4 TO 6 HOURS NEEDED FOR PAIN. MAX 6 TABS/DAY ondansetron HCl 4 mg tablet 4 mg PO DAILY PRN (Reason: nausea and vomiting) Qty: 15 0RF aspirin 81 mg capsule 81 mg PO BID rosuvastatin .ROUTE hydrochlorothiazide PO cholecalciferol (vitamin D3) .ROUTE multivitamin with iron [Daily Vitamin with Iron] .ROUTE Follow Up/Referrals: Provider,Not a Local [Primary Care Provider] - Stand Alone [facility]: [facility] Info Instructions
--- OUTSIDE RECORDS SUMMARY | 2023-02-01 21:37 | XMS_ITS | Patient Health Record ---
Author Name Unknown Organization [facility] Address [address] [place] [id number] Care Team Providers Care Basket Hand Weaver Name Role Phone None, No PCP Primary Care Provider Jane Dickah Unavailable [phone] CazaresJina Unavailable [phone] ALLERGIES No Known Allergies RESULTS Component Value Reference Range Notes Urinalysis, Routine - Reviewed date:09/24/2022 02:13:43 PM Interpretation: Performing Lab: Notes/Report: Urine Color yellow Yellow - Molly Appearance clear Clear - Glucose neg Bilirubin neg Ketone neg Specific Hollywood 1.005 Blood 10 pH 8.5 Protein neg Urobilinogen 0.2 Nitrite neg Leukocytes neg Glucose Bilirubin Ketones Specific [place] Occult Blood pH Protein Urobilinogen Nitrite Leukocytes CULTURE, URINE, ROUTINE Reviewed date:09/27/2022 11:19:47 AM Interpretation: Performing Lab:CB, [facility] [address], [id number] [place] Notes/Report: 0 CULTURE, URINE, ROUTINE SEE NOTE CULTURE, URINE, ROUTINE Micro Number: [id number] Test Status: Final Specimen Source: Urine, clean catch Specimen Quality: Adequate Result: Mixed genital lisa isolated. These superficial bacteria are not indicative of a urinary tract infection. No further organism identification is warranted on this specimen. If clinically indicated, recollect clean-catch, mid-stream urine and transfer immediately to Urine Culture Transport Tube. BD Affirm Reviewed date:09/25/2022 12:22:25 PM Interpretation: Performing Lab: Notes/Report: Yeast NEG Negative - Bacterial Vaginosis POS Negative - Trichomoniasis NEG Negative - REASON FOR REFERRAL No Information MEDICATIONS Medication SIG (Take, Route, Fr equency, Duration) Notes Start Date End Date Status metroNIDAZOLE 500 MG 1 tablet Orally Onc e a day for 7 days 09/25/2022 Active Clindamycin HCl 300 MG 1 capsule Orally every 12 hrs for 7 days 09/27/2022 Active Vitamin K2 Active Vitamin D Active hydroCHLOROthiazide Active Diflucan 150 MG 1 tablet Orally once now and repeat in 3-5 days if symptoms persist for 2 days Acti ve Potassium Active Rosuvastatin Calcium Active SOCIAL HISTORY Tobacco Use: Social History Observation Description Date Details (start date - stop date) Current Smoker NA - NA Sex Assigned At : Social History Observation Description Sex Assigned At Female Tobacco Use/Smoking Question Answer Notes Are you a current smoker How often do you smoke cigarettes? every day How many cigarettes a day do you smoke? 6-10 Encounters Encounter Location Date Provider Diagnosis [place] [address] [place], [place] [id number] 09/25/2022 Brina Paris [address] [address] 09/27/2022 Brina Paris [address] [address] 10/08/2022 Brina Paris [place] [address] [place], [place] [id number] 10/08/2022 Brina Paris [facility] [address] [place] [address] 09/24/2022 Brina Paris Discharge from the vagina N89.8 and Dysuria R30.0 [facility] [address] [place] [address] 10/15/2022 [facility] [address] [facility] [place] [address] 10/15/2022 [facility] [address] [place] [address] 10/11/2022 Brina aPris [facility] [address] [place] [address] 09/24/2022 Brina Paris Acute vaginitis N76.0 ASSESSMENTS Encounter Date Diagnosis Assessment Notes Treatment Notes Treatment Clinical Notes 09/24/2022 Acute vaginitis (ICD-10 - N76.0) 09/24/2022 Discharge from the vagina (ICD-10 - N89.8) 09/24/2022 Dysuria (ICD-10 - R30.0) 09/24/2022 Other BD affirm collected. Declines STI testing. Will send rx for diflucan today per pt request Discussed treatment options should swab show yeast of BV. If negative will reassess options for symptom management. 20 minutes spent in chart review, discussing with patient and documentation regarding: vaginitis Of note, patient fell when exiting clinic. Report made by retail tire sales manager. Patient's son drove her here. PLAN OF TREATMENT No Information Insurance Providers Payer Name Payer Address Payer Phone Subscriber Number Group Number Insured Name Patient Relationship to Insured Coverage Start Date Coverage End Date Medicare (Ins. Bill) [address] [place], [place] [id number] Jennifer Mcmillan Self - patient is the insured (Ins Bill) [address] [place], [place] [id number] Jennifer Mcmillan Self - patient is the insured MEDICAL (GENERAL) HISTORY Medical History History ICD Code high blood pressure high cholesterol Surgical History Surgery Date(Month/Year) back surgery gallbladder removal right knee eye surgery
[2023-02-01] MEDS: ONDANSETRON 2 MG/ML inj 4 MG IVP (21:56)
[2023-02-01] MEDS: 0.9 % SODIUM CHLORIDE 1000 ml 1,000 ML IV (21:56)
[2023-02-01 22:00] LABS: Basophils Absolute Auto 0.02 K/uL (0.00-0.30); Basophils Percent Auto 0.3 % (0.0-3.0); Eosinophils Absolute Auto 0.17 K/uL (0.00-0.50); Eosinophils Percent Auto 2.9 % (0.0-7.0); Hematocrit 38.2 % (33.0-51.0); Hemoglobin* 12.4 gm/dL (12.0-16.0); Lymphocytes Absolute Auto 1.93 K/uL (0.90-2.90); Lymphocytes Percent Auto 32.9 % (20-44); Mean Corpuscular HGB Conc 33 gm/dL (32-36); Mean Corpuscular Hemoglobin 31 pg (26-34); Mean Corpuscular Volume 95 fL (80-100); Monocytes Percent Auto 8.4 % (0.0-11.0); Neutrophils Absolute Auto 3.25 K/uL (1.7-7.0); Neutrophils Percent Auto 55.5 % (42.0-72.0); Platelet Count* 350 K/uL (140-440); RDW Coefficient of Variation % 13.1 % (11.5-15.5); Red Blood Count 4.03 m/uL (4.00-5.20); White Blood Count* 5.86 K/uL (4.50-11.00)
[2023-02-01 22:04] LABS: Slide Review Reflex No
[2023-02-01 22:24] LABS: Chloride* 102 mmol/L (96-114); Potassium* 3.8 mmol/L (3.6-5.1); Sodium* 137 mmol/L (135-149)
[2023-02-01 22:27] LABS: Creatinine* 0.8 mg/dL (0.5-1.5); Estimated Glomerular Filt Rate 74 ml/min
[2023-02-01 22:28] LABS: Anion Gap 6 mEq/L (7-15); Blood Urea Nitrogen* 14 mg/dL (7-30); Calcium* 10.2 mg/dL (8.4-10.6); Carbon Dioxide* 29 mmol/L (20-32); Glucose* 127 mg/dL (60-115)
[2023-02-01 22:30] LABS: C Reactive Protein* 0.9 mg/dL (0.5-1.0)
[2023-02-01] MEDS: HYDROCODONE-ACETAMIN 5-325 MG 1 TAB 2 TAB PO (22:59)
[2023-02-01 23:10] LABS: D Dimer Quantitative* 2.79 ug/ml (0.00-0.50)
[2023-02-02 00:10] VITALS: BP 150/80; PULSE 80; RESP 14; TEMP 36.3; O2SAT 100
[2023-02-02 01:00] VITALS: BP 109/68; PULSE 78; RESP 18; O2SAT 98
[2023-02-02 01:33] VITALS: BP 109/68; PULSE 77; RESP 18
--- NOTE | 2023-02-02 23:20 | CRLHL7_ITS ---
For Patients: As a result of the Century Cures Act, medical imaging exams and procedure reports are released immediately into your electronic medical record. You may view this report before your referring provider. If you have questions, please contact your health care provider. INDICATION: Leg pain and swelling. TECHNIQUE: Ultrasound venous duplex lower left extremity. Compression venous exam was performed using medellin-scale, color Doppler, and spectral Doppler analysis. COMPARISON: None. FINDINGS: Deep veins: Sonographic imaging demonstrates the left common femoral, deep femoral, superficial femoral, popliteal, posterior tibial and the contralateral right common femoral veins to be fully compressible with normal color Doppler blood flow. Superficial veins: Greater saphenous vein is fully compressible. No popliteal cyst. IMPRESSION: No sign of deep venous thrombosis in the left lower extremity. Dictated by Bernardo Child MD @ 02/02/2023 1:19:16 AM (Electronically Signed)
== END 2023-02-02 01:35 | disposition home or self-care (01) ==
PROVIDERS: Emergency Provider Family Medicine
DX: G89.18 Other acute postprocedural pain (principal); R22.42 Localized swelling, mass and lump, left lower limb
CPT/HCPCS: 36415; 80048; 85025; 85379; 86140; 87040; 93971; 96361; 96374; 99284; A9270; J2405; J7030

== ENCOUNTER 2023-10-09 15:48 | Emergency (ER) | payer MEDICARE, OTHER, SELFPAY ==
[2023-10-09 15:58] VITALS: BP 164/87; PULSE 84; RESP 22; TEMP 36.4; O2SAT 96; BMI 30.2
--- NOTE | 2023-10-09 16:07 | CT_ITS ---
Patient: ALEX KIRK Facility:?[facility] Patient ID:?[id number] Site Patient ID:?[id number]. Site :?[id number] Study:?CT-Abdomen/Pelvis WO-10/09/2023 4:46:14 PM Ordering Physician:FANTASMA Final Report: INDICATION: Left flank pain. TECHNIQUE: CT abdomen and pelvis without contrast. COMPARISON: None available. FINDINGS: Lower chest: Lung bases are clear. No pleural or pericardial effusions. Coronary artery calcifications. Liver: Unremarkable. Spleen: Unremarkable. Pancreas: Unremarkable. Gallbladder and bile ducts: Prior cholecystectomy. Mild intra and extrahepatic biliary ductal dilatation most consistent with changes of cholecystectomy. Kidneys: No ureteral stones or hydroureteronephrosis. Bilateral parapelvic cysts. The unenhanced kidneys are otherwise unremarkable. Adrenal glands: Unremarkable. GI tract: Small diverticulum in the 2nd portion of the duodenum. Extensive distal colonic diverticulosis without evidence of acute diverticulitis. No bowel obstruction or focal inflammatory change elsewhere. Normal appendix. No free air or free fluid. Vascular structures: Atherosclerotic disease. No abdominal aortic aneurysm. Lymph nodes: Unremarkable. Pelvic Organs: Unremarkable. Bones: Degenerative changes of the spine and pelvis. No acute or suspicious osseous abnormality. IMPRESSION: 1. No acute intra-abdominal or pelvic abnormality. 2. No urolithiasis or hydronephrosis. 3. Distal colonic diverticulosis without evidence of acute diverticulitis. Dictated by Bo Levy MD @ 10/09/2023 5:11:20 PM Please note that all CT scans at this facility use dose modulation, iterative reconstruction, and/or weight-based dosing when appropriate to reduce radiation dose to as low as reasonably achievable. Dictated by: Bo Levy MD @ 10/09/2023 17:11:36 Signed by:?Bo Levy MD @10/09/2023 5:11:36 PM (Electronic Signature)
--- OUTSIDE RECORDS SUMMARY | 2023-10-09 16:19 | XMS_ITS | Data Portability ---
Author Name Unknown Address [address] [place] [address] Phone [phone] Organization [facility] - (IP) Address [address] [place] [address] Care Team Providers Care Beauty School Instructor Name Role Phone YULI WATKINS Primary Care Provider [phone] Assessment Encounter Date Assessment Date Assessment LastModified by Organization Details LastModified Time 04/04/2016 04/04/2016 no dictation [email or web address] Not available 1 07/23/2015 13:01:11 05/23/2016 05/23/2016 Jennifer Cole comes in to Neurosurgery Clinic today for followup after an L5 to S1 laminectomy and microdiscectomy . This was complicated by an MSSA wound infection, so she underwent I and D on May 09, 2016. She is currently on cefazolin via PICC line for her MSSA. She is overall recovering well. Her sutures were removed without incident. She continues to have right SI joint pain; however, is not interested in starting physical therapy at this time as her is critically ill and living at home. She will be following up with Dr. Velazquez from Infectious Disease for her antibiotic plan. She will return to clinic in one month to assess for possible physical therapy. She will give us call in the meantime with any further questions or concerns. [id number] Not available 05/23/2016 15:02:02 Plan of Treatment Reminders Order Date Submit Date Provider Last Modified By Organization Details Last Modified Time Details Appointments None record ed. Lab None record ed. Referral None record ed. Procedures None record ed. Surgeries None record ed. Imaging None record ed. Medication Orders None record ed. Patient TargetsNo targets recorded. Patient InstructionsNo instructions recorded. Reason for Referral None Reported. Medical Equipment None Reported. Vitals None Recorded Social History None recorded. Functional Status None recorded. Mental Status None recorded. Family History Nothing Reported. Medical History No medical history recorded. Gynecological HistoryNo gynecological history recorded. Obstetrics History GPAL:G 0 P 0 0 0 0 Past Encounters Encounter ID Performer Location Encounter Start Date Encounter Closed Date Diagnosis/Indication Diagnosis SNOMED-CT Code [address] [facility] [address] [facility] [place] [id number] 04/04/2016 17:49:06 04/04/2016 17:49:33 [id number] [facility] - () [address] [facility] [place] [address] 2016 08:40:49 04/24/2016 09:20:35 [id number] [facility] - () [address] [facility] [place] [address] 05/16/2016 10:33:35 05/16/2016 10:34:01 9094 [facility] [address] [facility] [place] [id number] 05/23/2016 14:11:54 05/24/2016 08:55:11 Health Concerns Section Related Observation LastModified by Organization Detai ls LastModified Time None Recorded Concern Status LastModified by Organization Details LastModified Time None Recorded Advance Directives Directive None Recorded Payers Encounter Date Sequence Insurance Name Policy Number Policy Singer Covered Member ID Singer Member ID Guarantor Name 05/23/2016 1 [place] [employer] Jennifer Cole [id number] Jennifer Cole 05/23/2016 2 () Jennifer Cole [id number] Jennifer Cole 05/09/2016 1 [place] [employer] Jennifer E Chalstrom [id number] Jennifer E Kelsey 05/09/2016 2 () Jennifer Cole [id number] Jennifer Cole 04/22/2016 1 [place] [employer] Jennifer E Chalstrom [id number] Jennifer Cole 04/22/2016 2 () Jennifer E Chalstrom [id number] Jennifer Cole 04/04/2016 1 [place] [employer] Jennifer Cole [id number] Jennifer Cole 04/04/2016 2 JERI () Jennifer Cole [id number] Jennifer Cole Notes Date Note Type Note Provider Name and Address Organization Details Recorded Time 05/23/2016 text/html HPI Notes: Jennifer Cole comes in to Neurosurgery clinic today for followup after an L5 to S1 laminectomy and microdiscectomy on April 22, 2016, with Dr. Lucia. This unfortunately was complicated by an MSSA wound infection, so she underwent I and D on May 09, 2016. She has a PICC line and is currently doing cefazolin infusions at home. She reports her low back pain is improving. She has minimal right lower extremity pain, but uses Flexeril at nighttime to help with her sleep. She has had no drainage from her incision. Guerrero rebollar [place] - [facility] 05/24/2016 10:10:26 OBGyn Episode No OBEpisode recorded.
--- OUTSIDE RECORDS SUMMARY | 2023-10-09 16:19 | XMS_ITS | Patient Health Record ---
Author Name Unknown Organization [facility] Address [address] [place] [address] Care Team Providers Care Tungsten Refiner Name Role Phone None, No PCP Primary Care Provider Brina Dick Unavailable [phone] Jina Cazares Unavailable [phone] Allergies No Known Allergies Reason For Referral No Information Medications Medication SIG (Take, Route, Fr equency, Duration) [...] Acti ve Potassium Active Rosuvastatin Calcium Active Social History Tobacco Use: Social History Observation Description Date Details (start date - stop date) Current Smoker NA - NA Sex Assigned At : Social History Observation Description Sex Assigned At Female Tobacco Use/Smoking Question Answer Notes Are you a current smoker How often do you smoke cigarettes? every day How many cigarettes a day do you smoke? 6-10 Encounters Encounter Location Date Provider Diagnosis [address] [place] [address] 10/08/2022 Brina Paris [facility] [address] [place] [address] 10/08/2022 Brina Paris Plan Of Treatment No Information Insurance Providers Payer Name Payer Address Payer Phone Subscriber Number Group Number Insured Name Patient Relationship to Insured Coverage Start Date Coverage End Date Medicare (Ins. Bill) [address] [place], [place] [id number] Jennifer Mcmillan Self - patient is the insured [facility] (Ins Bill) [address] [place], [place] [id number] Jennifer Mcmillan Self - patient is the insured Medical (General) History Medical History History ICD Code high blood pressure high cholesterol Surgical History Surgery Date(Month/Year) back surgery gallbladder removal right knee eye surgery
--- OUTSIDE RECORDS SUMMARY | 2023-10-09 16:19 | XMS_ITS | Referral Summary ---
Author Name Unknown Organization [facility] Address [address] [place] [address] Care Team Providers Care Loss Prevention Leader Name Role Phone Francesco Bonner MD Allergies Active Allergy Reactions Criticality Noted Date Comments Acetaminophen Low 02/13/2022 Other reaction(s): itchy Atorvastatin 02/04/2017 Oxycodone-Acetaminophen Itching 05/06/2016 Severe itching Medications Medication Sig Dispensed Refills Start Date End Date Status ondansetron (ZOFRAN) 4 mg oral tablet TAKE ONE TO TWO TABLETS BY MOUTH EVERY 8 HOURS NEEDED FOR NAUSEA 01/24/2022 Active acetaminophen (TYLENOL) 500 mg oral tablet Take 1,000 mg by mouth. 01/15/2022 Active diazePAM (VALIUM) 2 mg oral tablet take 1-2 tablet by oral route once 30-60 minutes before MRI as needed for claustrophobia 04/04/2022 Active rosuvastatin (CRESTOR) 20 mg oral tablet Take 1 tablet (20 mg) by mouth once daily. 90 tablet 3 05/07/2022 Active triamterene-hydro chlorothiazide (MAXZIDE) 37.5-25 mg oral tablet TAKE 1 TABLET BY MOUTH EVERY DAY 90 tablet 3 05/07/2022 Active tiZANidine (ZANAFLEX) 2 mg oral tablet Take 1 tablet (2 mg) by mouth three times a day as needed. 30 tablet 05/28/2022 Active potassium chloride (K-DUR) 20 mEq oral extended release tablet Take 1 tablet (20 mEq) by mouth once daily. 90 tablet 3 07/17/2022 Active lidocaine-priloca ine (EMLA) 2.5-2.5 % Top cream cream Apply to skin twice a day. To the knees as needed 30 g 1 02/06/2023 Active senna (SENOKOT) 8.6 mg oral tablet Take 1-2 tablets (8.6-17.2 mg) by mouth twice a day as needed. 03/03/2023 Active polyethylene glycol (MIRALAX) 17 gram oral powder Take 17 g by mouth once a day as needed. Mix each dose in 4-8 ounces of liquid as directed. 03/03/2023 Active Active Problems Problem Noted Date Diagnosed Date Osteopenia 07/05/2021 Overview: 07/24 S-1.0 H-2.0 (Frax 16%, 7%) Subclavian arterial stenosis 06/25/2021 Overview: 06/25/21 US: Moderate to severe (>50%) RIGHT subclavian artery stenosis (difficult visualization). 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 LEFT MAIN:?The left [...] new lung opacities or nodules are seen. 12/09/22 CT: Groundglass opacities in the right upper lobe measuring 11 x 9 mm and 10 x 9 mm are unchanged in size and appearance from 10/02/2021. Hypercholesterolemia 09/17/2016 Asymmetric blood pressures 07/10/2016 Overview: [...] disorder 02/23/2016 Resolved Problems Problem Noted Date Diagnosed Date Resolved Date Sepsis 05/01/2016 05/28/2016 Encephalopathy 05/01/2016 05/28/2016 Immunizations Name Administration Dates Next Due Zoster Recombinant 03/27/2020 Social History Tobacco Use Types Packs/Day Years Used Date Smoking Tobacco: Every Day Cigarettes Smokeless Tobacco: Never Tobacco Cessation:Ready to Q uit: Not Asked; Counseling Given: Not Answered Comments:06/05 PPD [id number] DT, GIS TECHNICIAN 12/18/2022 Alcohol Use Standard Drinks/Week Comments Yes 0 (1 standard drink = 0.6 oz pur e alcohol) Infrequent PHQ-2 Answer Date Recorded PHQ2 Total 0 03/03/2023 Sex and Gender Information Value Date Recorded Sex Assigned at Female 11/18/2022 10:50 AM CDT Gender Identity Female 11/18/2022 10:50 AM CDT Sexual Orientation Not on file Last Filed Vital Signs Vital Sign Reading Time Taken Comments Blood Pressure 144/72 03/03/2023 10:18 AM CDT Pulse 83 03/03/2023 10:18 AM CDT Temperature 36.2 ??C (97.1 ??F) 03/03/2023 10:18 AM C DT Respiratory Rate 16 02/05/2022 9:08 AM CDT Oxygen Saturation 96% 03/03/2023 10:18 AM CDT Inhaled Oxygen Concentration - - Weight 71.4 kg (157 lb 4.8 oz) 03/03/2023 10:18 AM CDT Height 157.5 cm (5' 2) 12/18/2022 2:32 PM CDT Body Mass Index 28.77 12/18/2022 2:32 PM CDT Plan of Treatment Not on file Procedures Procedure Name Priority Date/Time Associated Diagnosis Comments XR BONE DENSITY-SPINE & HIP Routine 07/05/2021 10:34 AM AIRPLANE PILOT SUPERVISOR Screening for osteoporosis Postmenopausal from Last 3 Months or Most Recently Relevant to Health Maintenance Results * XR (MDIP) BONE DENSITY-SPINE & HIP (07/05/2021 10:34 AM AIRPLANE PILOT SUPERVISOR) Anatomical Region Laterality Modality Extremity Computed Radiogr aphy 07/05/2021 10:3 5 AM AIRPLANE PILOT SUPERVISOR Impressions 07/05/2021 10:37 AM AIRPLANE PILOT SUPERVISOR IMPRESSION: Osteopenia. WHO Classification of bone density for post-menopausal women, and men over 50 years of age, is as follows: Normal bone density: T score greater than -1.0. Osteopenia (Low bone density): T score between -1.0 and -2.5. Osteoporosis: T score less than -2.5. ?? REPORT SIGNED BY DR. Gordy Payne Narrative 07/05/2021 10:37 AM AIRPLANE PILOT SUPERVISOR EXAM: DEXA BONE DENSITY STUDY DATE: 07/05/2021 10:14 AM COMPARISON: None submitted. CLINICAL DATA: Osteoporosis screening. Post-menopausal. TECHNIQUE: A bone density evaluation using DEXA (dual energy x-ray absorptiometry) was performed for your patient at the [facility] in Pool using a Hologic (Discovery) unit. FINDINGS: Lumbar Spine (L1 and L2): Average BMD (g/cm2): 0.874 T-score: -1.0 Z-score: 1.6 Left Femoral Neck: Average BMD (g/cm2): 0.628 T-score: -2.0 Z-score: 0.4 Left Hip Total: Average BMD (g/cm2): 0.800 T-score: -1.2 Z-score: 1.0 Vertebral assessment: frontal and lateral scanograms demonstrate no compression deformities in the thoracic or lumbar spine. Degenerative changes noted at L3 and L4. FRAX (10-year Fracture Risk calculated for an untreated patient): the risks of a major osteoporotic fracture and a hip fracture are, respectively, 16% and 7%. Procedure Note Gordy Payne MD - 07/05/2021 EXAM: DEXA BONE DENSITY STUDY DATE: 07/05/2021 10:14 AM COMPARISON: None submitted. CLINICAL DATA: Osteoporosis screening. Post-menopausal. TECHNIQUE: A bone density evaluation using DEXA (dual energy x- rayabsorptiometry) was performed for your patient at the [facility] in Pool using a Hologic (Discovery) unit. FINDINGS: Lumbar Spine (L1 and L2): Average BMD (g/cm2): 0.874 T-score: -1.0 Z-score: 1.6 Left Femoral Neck: Average BMD (g/cm2): 0.628 T-score: -2.0 Z-score: 0.4 Left Hip Total: Average BMD (g/cm2): 0.800 T-score: -1.2 Z-score: 1.0 Vertebral assessment: frontal and lateral scanograms demonstrate nocompression deformities in the thoracic or lumbar spine. Degenerativechanges noted at L3 and L4. FRAX (10-year Fracture Risk calculated for an untreated patient): therisks of a major osteoporotic fracture and a hip fracture are,respectively, 16% and 7%. IMPRESSION IMPRESSION: Osteopenia. WHO Classification of bone density for post-menopausal women, and men over50 years of age, is as follows: Normal bone density: T score greater than -1.0. Osteopenia (Low bone density): T score between -1.0 and -2.5. Osteoporosis: T score less than -2.5. REPORT SIGNED BY DR. Gordy Payne Anup Evans MD XRAY ORDERABLE from Last 3 Months or Most Recently Relevant to Health Maintenance Advance Directives For more information, please contact: [phone] Latest Code Status on File Code Status Date Activated Date Inactivated Comments Full Code 05/01/2016 4:04 PM 05/11/2016 4:39 PM Question Answer Comments How was code status determined? Patient Code Status History Code Status Date Activated Date Inactivated Comments Full Code 08/08/2013 5:53 PM 08/09/2013 8:08 PM Question Answer Comments How was code status determined? Patient Care Teams Loss Prevention Leader Relationship Specialty Start Date End Date Francesco Bonner MD 08/11/13
--- OUTSIDE RECORDS SUMMARY | 2023-10-09 16:19 | XMS_ITS | Clinical Summary ---
Author Name Unknown Organization [facility] Address [address] [place] [address] Care Team Providers Care Cigarette Making Examiner Name Role Phone Francesco Bonner MD Allergies [...] Administration Dates Next Due Zoster Recombinant 03/27/2020 Family History Medical History Relation Comments [...] Brother 3 Brother 4 in a car ac cident Brother 5 Alive Daughter 1 Daughter 2 [...] Asked; Counseling Given: Not Answered Comments:06/05 PPD [id number] DT, HEALTHCARE ADMINISTRATION INTERN 12/18/2022 Alcohol Use Standard Drinks/Week Comments Yes [...] 12/18/2022 2:32 PM CDT Plan of Treatment Health Maintenance Due Date Last Done Comments RSV 60+ Yrs (1 - 1-dose 60+ series) 2000 Osteoporosis Screening 07/05/2023 , 12/15/2018 (Declined), 02/23/2016 (Declined) Yearly Review of HCD 03/02/2024 03/03/2023, 02/05/2022, 04/10/2021, Additional history exists Depression Assessment (PHQ-2) 03/03/2024 03/03/2023 Adult Tetanus Booster 02/22/2026 02/23/2016 (Decline d) Colonoscopy 02/22/2026 02/23/2016 (Declined) Pneumococcal 65+ Addressed 08/14/2017 (Dec lined), 02/23/2016 (Declined) Overridden with the intention of not completing the topic Zoster Vaccine Addressed 03/27/2020, 11/30 (Declined) Overridden with the intention of not completing the topic Influenza Vaccine Discontinued 05/11/2020 (De clined), 02/04/2017 (Declined), 02/23/2016 (Declined) COVID-19 Vaccine Discontinued Procedures Procedure Name Priority Date/Time Associated Diagnosis Comments XR BONE DENSITY-SPINE & HIP Routine 07/05/2021 10:34 AM LEATHER STRETCHER Screening for osteoporosis Postmenopausal from Last 3 Months or Most Recently Relevant to Health Maintenance Results * XR (MDIP) BONE DENSITY-SPINE & HIP (07/05/2021 10:34 AM LEATHER STRETCHER) Anatomical Region Laterality Modality Extremity Computed Radiogr aphy 07/05/2021 10:3 5 AM LEATHER STRETCHER Impressions 07/05/2021 10:37 AM LEATHER STRETCHER IMPRESSION: Osteopenia. WHO Classification of bone density for post-menopausal women, and men over 50 years of age, is as follows: Normal bone density: T score greater than -1.0. Osteopenia (Low bone density): T score between -1.0 and -2.5. Osteoporosis: T score less than -2.5. ?? REPORT SIGNED BY DR. Gordy Payne Narrative 07/05/2021 10:37 AM LEATHER STRETCHER EXAM: DEXA BONE DENSITY STUDY DATE: 07/05/2021 10:14 AM COMPARISON: None submitted. CLINICAL DATA: Osteoporosis screening. Post-menopausal. TECHNIQUE: A bone density evaluation using DEXA (dual energy x-ray absorptiometry) was performed for your patient at the [facility] in [place] using a Hologic (Discovery) unit. FINDINGS: Lumbar [...] was performed for your patient at the [facility] in [place] using a Hologic (Discovery) unit. FINDINGS: Lumbar [...] Advance Directives For more information, please contact: [phone] Latest Code Status on File Code Status Date Activated Date Inactivated Comments Full Code 05/01/2016 4:04 PM 05/11/2016 4:39 PM Question Answer Comments How was code status determined? Patient Code Status History Code Status Date Activated Date Inactivated Comments Full Code 08/08/2013 5:53 PM 08/09/2013 8:08 PM Question Answer Comments How was code status determined? Patient Care Teams Cigarette Making Examiner Relationship Specialty Start Date End Date Francesco Bonner MD 08/11/13
--- OUTSIDE RECORDS SUMMARY | 2023-10-09 16:19 | XMS_ITS | Clinical Summary ---
Author Name Unknown Organization [facility] Address [place], [place] [address] Care Team Providers Care Tobacco Warehouse Manager Name Role Phone Anup Evans MD Primary Care Provider [phone] Allergies Active Allergy Reactions Criticality Noted Date Comments Atorvastatin Edema Low 02/04/2017 Medications Medication Sig Dispensed Refills Start Date End Date Status potassium chloride (K-DUR) 20 mEq Extended-Release tablet Take 20 mEq by mouth once daily. Active rosuvastatin (CRESTOR) 20 mg tablet Take 20 mg by mouth at bedtime. Active Cholecalciferol, Vitamin D3, (Vitamin D-3) 400 unit capsule Take 400 units by mouth once daily. Active lidocaine-priloca ine (EMLA) 2.5-2.5 % cream Apply topically to the knees 2 times per day as needed Active ondansetron (ZOFRAN) 4 mg tablet Take 4-8 mg by mouth every 8 hours if needed for Nausea/Vomiting. Active tiZANidine (ZANAFLEX) 2 mg tablet Take 2 mg by mouth 3 times daily if needed for Muscle Spasm. Active triamterene-hydro chlorothiazide, 37.5-25 mg, (MAXZIDE-25) 37.5-25 mg tablet Take 1 Tablet by mouth every morning. Active TURMERIC ORAL Take 1 Each by mouth once daily. Active acetaminophen (TYLENOL EXTRA STRGTH) 500 mg tabletIndications :S/P total knee arthroplasty, left Take 2 Tablets (1,000 mg) by mouth three times daily. Max acetaminophen dose: 4000mg in 24 hrs. 100 Tablet 1 01/13/2023 Active aspirin (ECOTRIN) 81 mg enteric coated tabletIndications :S/P total knee arthroplasty, left Take 1 Tablet (81 mg) by mouth two times daily with meals. 60 Tablet 01/13/2023 Active sennosides-docusa te (SENOKOT S) (8.6-50 mg) tabletIndications :S/P total knee arthroplasty, left Take 1 Tablet by mouth two times daily. 50 Tablet 1 01/13/2023 Active oxyCODONE (ROXICODONE) 5 mg immediate release tabletIndications :S/P total knee arthroplasty, left Take 1-2 Tablets (5-10 mg) by mouth every 4 hours if needed for Pain (For moderate pain. Hold dose if sedated.). 30 Tablet 01/14/2023 Active Active Problems Problem Noted Date Diagnosed Date Osteoarthritis of left knee 01/09/2023 Uterine mass 02/28/2022 09/13/2022 Overview: 02/22/22 Pelvic US: The uterus has no myomas. The endometrial stripe is normal thickness. ??There is moderate amount of fluid in the endometrial cavity. ??There is a 1.5 cm mass in the cavity. Osteoarthritis of right knee 01/10/2022 Overview: 01/14/2022 Right Total Knee Arthroplasty Osteopenia 07/05/2021 09/13/2022 Overview: 07/24 S-1.0 H-2.0 (Frax 16%, 7%) DDD (degenerative disc disease), lumbar 07/16/19 18 09/13/2022 ASCVD (arteriosclerotic cardiovascular disease) 05/20/2017 09/13/2022 Overview: 05/07/17 CORONARY ANATOMY:?Right Dominant. LEFT MAIN:?The [...] in the 67th percentile Pulmonary nodules 05/20/2017 09/13/2022 Overview: 05/07/17 5 x 3 mm pulmonary [...] opacities or nodules are seen. Hypercholesterolemia 09/17/2016 Overview: Rosuvastatin Essential hypertension 07/10/2016 Overview: Triamterene and hydrochlorothiazide Asymmetric blood pressures 07/10/201609/13 Overview: L>R (Check BP on left arm) PAD (peripheral artery disease) 07/10/2016 09/13/2022 Overview: 12/13 Study reveals the following: There [...] normal arterial supply to both lower extremities. Tobacco use disorder 02/23/2016 09/13/2022 Subclavian arterial stenosis 12/01/2013 Overview: 06/25/21 US: Moderate to severe (>50%) RIGHT subclavian artery stenosis (difficult visualization). Lumbar disc herniation 09/03/2013 Immunizations Name Administration Dates Next Due Zoster (Shingrix-RZV, recombinant) 03/27/2020 Family History Medical History Relation Name Comments Diabetes Mother Stroke Mother Relation Name Status Comments Mother Social History Tobacco Use Types Packs/Day Years Used Date Smoking Tobacco: Every Day Cigarettes 0.5 50 Smokeless Tobacco: Never Tobacco Cessation:Ready to Q uit: Not Asked; Counseling Given: Not Answered Alcohol Use Standard Drinks/Week Comments No 0 (1 standard drink = 0.6 oz pur e alcohol) PHQ-2 Answer Date Recorded PHQ-2 TOTAL SCORE 0 02/22/2022 Sex and Gender Information Value Date Recorded Sex Assigned at Not on file Gender Identity Not on file Sexual Orientation Not on file Obstetrics History Last Filed Vital Signs Vital Sign Reading Time Taken Comments Blood Pressure 125/63 01/29/2023 1:42 PM CDT Pulse 81 01/29/2023 1:42 PM CDT Temperature 36.8 ??C (98.2 ??F) 01/29/2023 1:42 PM CD T Respiratory Rate 16 01/29/2023 1:42 PM CDT Oxygen Saturation 97% 01/29/2023 1:42 PM CDT Inhaled Oxygen Concentration - - Weight 76.2 kg (168 lb) 01/29/2023 1:42 PM CDT Height 157.5 cm (5' 2) 01/13/2023 9:07 AM CDT Body Mass Index 30.73 01/13/2023 9:07 AM CDT Plan of Treatment Health Maintenance Due Date Last Done Comments Pneumococcal series for age 65+ (1 of 2 - PCV) 1946 Tdap 1951 Tetanus booster 1960 DEXA/DXA scan for age 65+ 2005 Medicare Wellness for age 65+ 2005 Zoster (shingles) series for age 50+ (2 of 2) 05/22/2020 03/27/2020 COVID-19 vaccine series ( - season) 2023 Depression screening for age 12+ 02/25/2023 02/25/2022, 02/22/2022, 02/22/2022 BMI (ht and wt on same day) for age 18+ 09/14/2023 09/13/2022, 02/22/2022, 04/08/2016 Influenza for age 65+ 02/01/2024 Medical Devices Implanted Type Area Perfect Binder Setter Device Identifier Shelf Expiration Date Model / Serial / Lot Cmnt Bone 40g Simplex P Non Atb Mv - [id number] Implanted:Qty: 1 on 01/14/2022 by Moises Souza MD at [facility] Right: Knee [employer] 05/01/2024 6191-1-010 / / [id number] Cmnt Bone 40g Simplex P Non Atb Mv - [id number] Implanted:Qty: 1 on 01/14/2022 by Moises Souza MD at [facility] Right: Knee [employer] 05/01/2024 6191-1-010 / / [id number] Triathlon Primary Tibial Baseplate Implanted:Qty: 1 on 01/14/2022 by Moises Souza MD at [facility] Right: Knee [employer] 10/15/2026 5520-B-400 / / [id number] Triathlon Cruciate Retaining Femoral Implanted:Qty: 1 on 01/14/2022 by Moises Souza MD at [facility] Right: Knee [employer] 11/12/2025 5510-F-402 / / [id number] Implnt Patellar [id number] Knee X3 Asymmetric [employer]lon - [id number] Implanted:Qty: 1 on 01/14/2022 by Moises Souza MD at [facility] Right: Knee [employer] 08/19/2026 5551-G-320 -E / / [id number] Cmnt Bone 40g Simplex P Non Atb Mv - [id number] Implanted:Qty: 1 on 01/14/2022 by Moises Souza MD at [facility] Right: Knee [employer] 05/01/2024 6191-1-010 / / [id number] Triathlon X3 Tibial Bearing Insert - [id number] Implanted:Qty: 1 on 01/14/2022 by Moises Souza MD at [facility] Right: Knee [employer] 10/02/2026 5531-G-410 -E / / [id number] Triathlon Cruciate Retaining Femoral Implanted:Qty: 1 on 01/13/2023 by Moises Souza MD at [facility] Left: Knee 11/07/2027 5510-F-401 / / [id number] Description:Triathlon Crucia te Retaining Femoral- Kim #4, Front End Wheel Loader Operator Lft, Typ CR Insert Tib Sz 4 10mm Knee X3 Condylar Stabilizing [employer] - [id number] Implanted:Qty: 1 on 01/13/2023 by Moises Souza MD at [facility] Left: Knee [employer] 11/07/2027 5531-G-410 -E / / [id number] Cmnt Bone 40g Simplex P Non Atb Mv - [id number] Implanted:Qty: 2 on 01/13/2023 by Moises Souza MD at [facility] Left: Knee [employer] 04/01/2025 6191-1-010 / / [id number] Primary Tibial Baseplate Implanted:Qty: 1 on 01/13/2023 by Moises Souza MD at [facility] Left: Knee [employer] 11/25/2027 520-B-400 / / [id number] Description:Triathlon Primar y Tibial Baseplate Kim #4 Insurance Payer Benefit Plan / Group Subscriber ID Effective Dates Phone Address Type MEDICARE PART A - HB USE ONLY MEDICARE PART A HB ONLY [id number] 2005-Prese nt ATTN: CLAIMS [address] [place] [address] MEDICARE PART B - HB USE ONLY MEDICARE PART B HB ONLY [id number] 2005-Prese nt ATTN: CLAIMS [address] [place] [address] MEDICARE - PB USE ONLY MEDICARE PB ONLY [id number] 2017-Prese nt ATTN: CLAIMS [address] [place] [address] RAMSEY ZAIDIVA [id number] 2010-04/23 [facility] OFFICE OF COMMUNITY CARE ATTN: CLAIMS [address] [address] [place] [address] [id number] 2010-Prese nt [facility] OFFICE OF COMMUNITY CARE ATTN CLAIMS [address] [address] [place] [address] Advance Directives * Full Code (Latest Code Status on File) Date Activated Date Inactivated Comments 01/13/2023 8:54 AM 01/14/2023 12:08 PM Question Answer Comments Code Status Discussion: Reviewed Preferences * Full Code Date Activated Date Inactivated Comments 05/13/2022 10:35 AM 05/13/2022 12:39 PM Question Answer Comments Code Status Discussion: Reviewed Preferences * Full Code Date Activated Date Inactivated Comments 01/14/2022 5:31 AM 01/15/2022 4:31 PM Question Answer Comments Code Status Discussion: Reviewed Preferences * Full Code Date Activated Date Inactivated Comments 04/22/2016 12:04 PM 2016 4:56 PM * Full Code Date Activated Date Inactivated Comments 04/22/2016 8:20 AM 04/22/2016 12:04 PM Care Teams Tobacco Warehouse Manager Relationship Specialty Start Date End Date Anup Evans MD PCP - General Internal Medicine 01/29/23
--- OUTSIDE RECORDS SUMMARY | 2023-10-09 16:19 | XMS_ITS | Encounter Summary ---
Author Name Unknown Organization [facility] Address [address] [place] [address] Care Team Providers Care Biomedical Equipment Specialist Name Role Phone Francesco Bonner MD Unavailable [facility] Anup Gómez MD Primary Care Provider [phone] [facility] Reason for Visit * Reason Onset Date Comments Other 11/19/2021 Return call Chest tightness 11/19/2021 Encounter Details Date Type Department Care Team (Late st Contact Info) Description 11/19/2021 Nurse Triage [facility] Internal Medicine [address] [address] Anup Evans MD [address] [place] [address] [place] [address] Social History Tobacco Use Types Packs/Day Years Used Date Smoking Tobacco: Every Day Cigarettes 1 60 Smokeless Tobacco: Never Alcohol Use Standard Drinks/Week Comments Yes 0 (1 standard drink = 0.6 oz pur e alcohol) Occasional Sex and Gender Information Value Date Recorded Sex Assigned at Female 11/18/2022 10:50 AM CDT Gender Identity Female 11/18/2022 10:50 AM CDT Sexual Orientation Not on file COVID-19 Exposure Response Date Recorded In the last 10 days, have yo u been in contact with someone who was confirmed or suspected to have Coronavirus/COVID-19? No / Unsure 11/20/2021 8:57 AM CDT documented as of this encounter Miscellaneous Notes * Telephone Encounter - Oscar Hussein RN - 11/19/2021 12:01 PM CDT Disposition: FYI-office visit scheduled- encounter closed Actions Requested: None Ok to leave detailed voice message:no PCP: Anup Evans MD Preferred Pharmacy: . Summary of call details: patient has chest pain last Friday last 20 minutes- none since [facility] see mD [id number] brian rs Oscar Romero RN Care color making supervisor Reason for Disposition ? ? [1] Chest pain lasts > 5 minutes AND [2] occurred > 3 days ago (72 hours) AND [3] NO chest pain or cardiac symptoms now Answer Assessment - [...] constant since it started? Does it get worse with exertion? Comes and goes 5. DURATION: How [...] any other symptoms? (e.g., dizziness, nausea, vomiting, sweating,fever, difficulty breathing, cough) none 11. : Is there any chance you are ? When was your last menstrual period? na Protocols used: CHEST PAIN-A-AH * Telephone Encounter - Nandini Barkley - 11/19/2021 11:47 AM CDT Patient returned call to speak with triage nurse as requested. Please call her at [phone]. Seeother messages. Nandini Barkley [facility] Care Access Department documented in this encounter Plan of Treatment Not on file documented as of this encounter Visit Diagnoses Not on filedocumented in this encounter Care Teams Biomedical Equipment Specialist Relationship Specialty Start Date End Date Anup Evans MD [address] [place] [address] Dr Pérez [facility] [place] [address] PCP - General Internal Medicine 02/23/16 03/04/[address] PÉREZ [address] [place] [address] PCP - Primary Care Clinic 02/23/16 06/12/23 Francesco Bonner MD 08/11/13 documented as of this encounter
[2023-10-09 16:21] LABS: Basophils Absolute Auto 0.02 K/uL (0.00-0.30); Basophils Percent Auto 0.4 % (0.0-3.0); Eosinophils Absolute Auto 0.21 K/uL (0.00-0.50); Eosinophils Percent Auto 3.8 % (0.0-7.0); Hematocrit 42.8 % (33.0-51.0); Hemoglobin* 14.2 gm/dL (12.0-16.0); Immature Granulocytes Abs Auto 0.01 K/uL (0.00-0.30); Immature Granulocytes Pct Auto 0.2 %; Lymphocytes Absolute Auto 2.02 K/uL (0.90-2.90); Lymphocytes Percent Auto 36.8 % (20-44); Mean Corpuscular HGB Conc 33 gm/dL (32-36); Mean Corpuscular Hemoglobin 31 pg (26-34); Mean Corpuscular Volume 94 fL (80-100); Monocytes Percent Auto 5.8 % (0.0-11.0); Neutrophils Absolute Auto 2.91 K/uL (1.7-7.0); Platelet Count* 225 K/uL (140-440); RDW Coefficient of Variation % 12.7 % (11.5-15.5); Red Blood Count 4.56 m/uL (4.00-5.20); White Blood Count* 5.49 K/uL (4.50-11.00)
[2023-10-09] MEDS: 0.9 % SODIUM CHLORIDE 500 ML 500 ML IV (16:21)
[2023-10-09] MEDS: ONDANSETRON 2 MG/ML inj 4 MG IVP (16:23)
[2023-10-09 16:24] LABS: Slide Review Reflex No
[2023-10-09] MEDS: MORPHINE 4 MG/ML INJ IVP (16:25)
[2023-10-09 16:31] LABS: Chloride* 103 mmol/L (96-114); Sodium* 137 mmol/L (135-149)
[2023-10-09 16:32] LABS: Potassium* 3.7 mmol/L (3.6-5.1)
[2023-10-09 16:34] LABS: Creatinine* 0.9 mg/dL (0.5-1.5); Est. Creatinine Clearance* 33.71; Estimated Glomerular Filt Rate 63 ml/min
[2023-10-09 16:35] LABS: Anion Gap 5 mEq/L (7-15); Blood Urea Nitrogen* 15 mg/dL (7-30); Calcium* 9.8 mg/dL (8.4-10.6); Carbon Dioxide* 29 mmol/L (20-32); Glucose* 115 mg/dL (60-115)
[2023-10-09 16:49] LABS: Appearance Urine Clear (Clear); Bilirubin Urine Negative (Negative); Blood Urine Trace-intact (Negative); Color Urine Yellow (Yellow); Glucose Urine Negative (Negative); Ketones Urine Negative (Negative); Leukocyte Esterase Urine Negative (Negative); Nitrite Urine Negative (Negative); Protein Urine Negative (Negative); Specific Gravity Urine 1.015 (1.000-1.030); Urobilinogen Urine 0.2 (0.2-1.0); pH Urine 5.5 (5.0-8.5)
[2023-10-09 16:50] LABS: C Reactive Protein* < 0.5 mg/dL (0.5-1.0)
--- NOTE | 2023-10-09 17:48 | ED_ITS ---
HPI - General Adult General Date Seen: 10/09/23 Chief complaint: Flank Pain Stated complaint: L side back pain Time Seen by Provider: 10/09/23 16:02 Source: patient Mode of arrival: ambulatory Limitations: no limitations History of Present Illness HPI narrative: Patient is an 83-year-old woman who presents for evaluation of left-sided flank pain which started a few hours prior to arrival. She describes it as colicky and crampy, not particularly affected by movement. She has had a little bit of nausea, no vomiting. She denies urinary symptoms, fever, diarrhea, black or bloody stools, abdominal pain. She has no history of kidney stones. She did have some back pain previously related to muscle spasm although was not this severe. No recent trauma. She does smoke. She denies alcohol use. No allergies to medications. Related Data Home Medications Medication Instructions Recorded Confirmed potassium chloride 20 mEq meq PO 02/06/22 tablet,extended release(part/cryst) aspirin 81 mg capsule 81 mg PO BID 02/01/23 10/09/23 cholecalciferol (vitamin D3) .Route 02/01/23 hydrochlorothiazide PO 02/01/23 multivitamin with iron .ROUTE 02/01/23 rosuvastatin .ROUTE 02/01/23 Allergies Allergy/AdvReac Type Severity Reaction Status Date / Time No Known Drug Allergies Allergy Verified 02/01/23 21:03 Review of Systems Status of ROS: Reports: 10 or more systems reviewed and unremarkable except as noted in History and below [facility] Social History Smoking Status: Current every day smoker What tobacco products do you use: cigarettes Smoking packs per day: 1 Smoking cigarettes per day: 20.0 Years smoked: 70 Smoking pack-years: 70.00 Do you use any of these nicotine containing products: None Second hand tobacco smoke exposure: No How often do you have a drink containing alcohol: never AUDIT-C Alcohol total score: 0 Non-prescribed substance use: denies use service: No Exam Narrative: Exam Narrative: Vital signs as noted above. In general, an alert, nontoxic elderly woman. She is clutching her left flank. Head: Normocephalic, atraumatic. Eyes: Pupils are equal reactive. Extraocular movements are full. Conjunctivae are normal. ENT: Mucous membranes are moist. Throat is normal. Neck: Supple without lymphadenopathy. Heart: Regular rate and rhythm. No murmur or rub. Lungs: Clear bilaterally. No increased work of breathing, crackles or wheezes. No CVA tenderness. Abdomen: Soft and nontender. No organomegaly. Extremities: Well perfused. No edema. No calf tenderness. Pulses intact. Neurologic: Patient is alert and oriented to person and place. Speech is fluent. Face is symmetric. Moves all extremities equally. Affect: Normal. Skin: Warm and dry. Well perfused. Const: Vital Signs, click to edit/add: Vital Signs - 24 hr 10/09/23 15:58 Temperature 97.6 F Pulse Rate [Pulse Oximeter] 84 Respiratory Rate 22 Blood Pressure [Ri ght Upper Arm] 164/87 H Pulse Oximetry 96 Oxygen Delivery Me thod Room Air Documenting provider has reviewed patient's vital signs: yes Course Course ED Course: Following initial evaluation, an IV was placed and she was given 4 mg of morphine and 4 mg of Zofran. I ordered labs including a UA. The UA is pending at this time, but other labs are entirely normal, white blood cell count is 5.5, hemoglobin is 14. Metabolic panel is normal, creatinine 0.9. CRP less than 0.5. She had a CT scan of the abdomen without contrast. By my review there is no evidence of hydronephrosis, perinephric stranding, or kidney stone. Final radiology read is as follows:FINDINGS: Lower chest: Lung bases are clear. No pleural or pericardial effusions. Coronary artery calcifications. Liver: Unremarkable. Spleen: Unremarkable. Pancreas: Unremarkable. Gallbladder and bile ducts: Prior cholecystectomy. Mild intra and extrahepatic biliary ductal dilatation most consistent with changes of cholecystectomy. Kidneys: No ureteral stones or hydroureteronephrosis. Bilateral parapelvic cysts. The unenhanced kidneys are otherwise unremarkable. Adrenal glands: Unremarkable. GI tract: Small diverticulum in the 2nd portion of the duodenum. Extensive distal colonic diverticulosis without evidence of acute diverticulitis. No bowel obstruction or focal inflammatory change elsewhere. Normal appendix. No free air or free fluid. Vascular structures: Atherosclerotic disease. No abdominal aortic aneurysm. Lymph nodes: Unremarkable. Pelvic Organs: Unremarkable. Bones: Degenerative changes of the spine and pelvis. No acute or suspicious osseous abnormality. IMPRESSION: 1. No acute intra-abdominal or pelvic abnormality. 2. No urolithiasis or hydronephrosis. 3. Distal colonic diverticulosis without evidence of acute diverticulitis. At this time, pain is improved. Urinalysis is still pending. Urinalysis is entirely negative, 0-2 red cells and 0-2 white cells. Patient is comfortable at this time. Etiology of her pain is not entirely clear, reviewed everything with patient and her son. At this time, I think it is reasonable to discharge home. If she has worsening would have her return re-evaluation, otherwise primary care follow-up if not improving. Tylenol as needed. Ice or heat may be helpful as well if pain is related to muscle spasm. Vital Signs Vital signs: Initial Vital Signs Temperature 97.6 F 10/09/23 15:58 Temperature Source Temporal Artery Scan 10/09/23 15:58 Pulse Rate 84 10/09/23 15:58 Pulse Rhythm Regular 10/09/23 15:58 Respiratory Rate 22 10/09/23 15:58 Blood Pressure 164/87 H 10/09/23 15:58 Blood Pressure Mean 112 H 10/09/23 15:58 Blood Pressure Position Sitting 10/09/23 15:58 Pulse Oximetry 96 10/09/23 15:58 Oxygen Delivery Method Room Air 10/09/23 15:58 Vital Signs Temperature 97.6 F 10/09/23 15:58 Pulse Rate 84 10/09/23 15:58 Respiratory Rate 22 10/09/23 15:58 Blood Pressure 164/87 H 10/09/23 15:58 Pulse Oximetry 96 10/09/23 15:58 Oxygen Delivery Method Room Air 10/09/23 15:58 Temperature 97.6 F 10/09/23 15:58 Pulse Rate 84 10/09/23 15:58 Respiratory Rate 22 10/09/23 15:58 Blood Pressure 164/87 H 10/09/23 15:58 Pulse Oximetry 96 10/09/23 15:58 Oxygen Delivery Method Room Air 10/09/23 15:58 Medications Administered Medications: Discontinued Medications Generic Name Dose Route Start Last Admin Trade Name Freq PRN Reason Stop Dose Admin Sodium Chloride 500 mls @ 500 mls/hr 10/09/23 16:07 10/09/23 17:48 0.9 % Sodium Chloride 500 Ml IV 10/09/23 17:06 Infused .Q1H ONE Infusion Morphine Sulfate 4 mg 10/09/23 16:07 10/09/23 16:25 Morphine 4 Mg/Ml Inj IVP 10/09/23 16:08 4 mg ONCE ONE Administration Ondansetron HCl 4 mg 10/09/23 16:07 10/09/23 16:23 Ondansetron 2 Mg/Ml Inj IVP 10/09/23 16:08 4 mg ONCE ONE Administration Medical Decision Making Lab Data Labs: Lab Results 10/09/23 10/09/23 Range/Units 16:10 16:18 WBC 5.49 (4.50-11.00) K/uL RBC 4.56 (4.00-5.20) m/uL Hgb 14.2 (12.0-16.0) gm/dL Hct 42.8 (33.0-51.0) % MCV 94 (80-100) fL MCH 31 (26-34) pg MCHC 33 (32-36) gm/dL RDW Coeff of Shira 12.7 (11.5-15.5) % Plt Count 225 (140-440) K/uL Neut % (Auto) 53.0 (42.0-72.0) % Lymph % (Auto) 36.8 (20-44) % [place] % (Auto) 5.8 (0.0-11.0) % Eos % (Auto) 3.8 (0.0-7.0) % Baso % (Auto) 0.4 (0.0-3.0) % Neut # (Auto) 2.91 (1.7-7.0) K/uL Lymph # (Auto) 2.02 (0.90-2.90) K/uL [place] # (Auto) 0.30 (0.00-0.90) K/UL Eos # (Auto) 0.21 (0.00-0.50) K/uL Baso # (Auto) 0.02 (0.00-0.30) K/uL Abs Immat Gran (auto) 0.01 (0.00-0.30) K/uL Imm/Tot Granulo (auto) 0.2 % Sodium 137 (135-149) mmol/L Potassium 3.7 (3.6-5.1) mmol/L Chloride 103 (96-114) mmol/L Carbon Dioxide 29 (20-32) mmol/L Anion Gap 5 L (7-15) mEq/L BUN 15 (7-30) mg/dL Creatinine 0.9 (0.5-1.5) mg/dL Estimated Creat Clear 33.71 Estimated GFR 63 ml/min Glucose 115 (60-115) mg/dL Calcium 9.8 (8.4-10.6) mg/dL C-Reactive Protein < 0.5 L (0.5-1.0) mg/dL Urine Color Yellow (Yellow) Urine Appearance Clear (Clear) Urine pH 5.5 (5.0-8.5) Ur Specific [place] 1.015 (1.000-1.030) Urine Protein Negative (Negative) Urine Glucose (UA) Negative (Negative) Urine Ketones Negative (Negative) Urine Blood Trace-intact A (Negative) Urine Nitrite Negative (Negative) Urine Bilirubin Negative (Negative) Urine Urobilinogen 0.2 (0.2-1.0) Ur Leukocyte Esterase Negative (Negative) Urine RBC 0-2 (0-2) Urine WBC 0-2 (0-5) Ur Squamous Epith Cells Few (None-Few) Amorphous Sediment Few A (None) Urine Bacteria None (None) Discharge Plan Discharge Clinical Impression: Left flank pain Patient Disposition: Home, Self-Care Condition: Improved Instructions: Flank Pain (ED) Additional Instructions: Your evaluation here in the ER is unremarkable, there is no clear explanation for your pain such as kidney stone, kidney infection, etcetera. Pain may be related to muscle spasm, but if you have severe uncontrolled pain, new symptoms such as fevers, vomiting, or other changes, return any time for re-evaluation. Otherwise, see your primary doctor if pain does not improve over the next couple of days. You can use Tylenol as needed, heat and or ice. Prescriptions: No Action potassium chloride 20 mEq tablet,ER particles/crystals PO Patient Comments: TAKE ONE TABLET BY MOUTH EVERY DAY aspirin 81 mg capsule 81 mg PO BID rosuvastatin .ROUTE hydrochlorothiazide PO cholecalciferol (vitamin D3) .Route multivitamin with iron [Daily Vitamin with Iron] .ROUTE Follow Up/Referrals: Provider,Not a Local [Primary Care Provider] - Stand Alone Forms: Karma Snap Info Instructions
[2023-10-09 17:50] LABS: Amorphous Sediment Urine Few; RBC Urine 0-2 (0-2); Squamous Epithelial Cell Urine Few (None-Few); WBC Urine 0-2 (0-5)
== END 2023-10-09 18:16 | disposition home or self-care (01) ==
PROVIDERS: Emergency Provider Emergency Medicine
DX: R10.9 Unspecified abdominal pain (principal)
CPT/HCPCS: 36415; 74176; 80048; 81001; 85025; 86140; 96374; 96375; 99284; J2270; J2405; J7030

== ENCOUNTER 2024-07-21 10:58 | Emergency (ER) | payer MEDICARE, OTHER, SELFPAY ==
--- OUTSIDE RECORDS SUMMARY | 2024-07-21 11:01 | XMS_ITS ---
Author Organization [facility] Rebeca Bill [address] [place] [address] Care Team Providers Care Production Quality Manager Name Role Phone BLANCA JEROME, SONG Unavailable Unavailable Floresita Santana [phone] REASON FOR VISIT path Encounters Encounter Location Date Provider Diagnosis TRAV Bill [address] [place] [address] 03/26/2024 Floresita Mcfarland Plan Of Treatment No Information Progress Notes * ALEX KIRK EDOB:1939 (83 yo F)Acc No.[id number]:03/26/2024 Patient: Corinna LILIAMARGARITA CHARLESCarlos Gonzalez :1940 A ge:83 Y S ex:Female Address:[address] [place], [place] [address] [address] * true * Date: Generated for Sarkisi chip/Dalila/eTransmitting on: 0 07/21/2024 11:01 AM REGULATED PROGRAM MANAGER
--- OUTSIDE RECORDS SUMMARY | 2024-07-21 11:01 | XMS_ITS ---
Author Name Interface, S1Eyqaqdz lity Address [address] [facility] [address] [address] [facility] On[facility] Address [address] [facility] [address] [place] [address] Care Team Providers Care Distribution Lineman Name Role Phone Baer Mannyangeliquejelly Araujo Unavailable Un available Allergies and Adverse Reactions Medication/Group Name Reaction Severity Date ATORVASTATIN Edema 03/07/2022 Plan Date Type Value 03/29/2022 APPOINTMENT OUTSIDE TEST 5 M IN 03/15/2022 APPOINTMENT SURGERY 30 MIN 03/07/2022 APPOINTMENT NEW PT CONSULT 6 0 MIN 03/07/2022 APPOINTMENT LAB 15 MIN 03/07/2022 LABORDER Surgical patholo gy panel 03/29/2022 LABORDER MRCP Reason for Visit OUTSIDE TEST 5 MIN Encounters Date Name 03/07/2022 Disorder of bile estrella t 03/07/2022 Endometrium thickene d (finding) Diagnostic Results Date Type Test Units Lower Limit Upper Limit Result Flag Comments Status Ordered By Specimen Source Lab Address 03/07 Surgi benjamin patho logy panel Biops y summa ry of findi ngs SEE RESULTS BELOW CASE REPORTPat hology Report Case: [id number] ing Provider: Unknown, Doctor Collected :03/07/20 22 1115Order ing Location: [facility] Received: 2 2249Patho logist: Oscar Perkins MDSpecbessy n: Endometri umFINAL DIAGNOSIS A) ENDOMETRI UM, BIOPSY:1. Scant inactive endometri um2. Fragments of benign endocervi benjamin and ectocervi benjamin mucosa3. Negative for hyperplas ia, atypia, and malignanc y in this sampleEle ctronical ly signed by Oscar Perkins MD on 2 at 11:49 AMCOMMENT A) The specimen is scant. However, inactive endometri um typically yields a scantspec imen. If the clinical impressio n does not correlate with the histologi cfindings , further endometri al tissue sampling is recommend ed as clinicall yair morrisCLINICA L INFORMATI ONThicken ed endometri umGROSS DESCRIPTI GIANNA) Received in formalin, labeled with the patient's name and date of is a0.3 x 0.2 x 0.1 cm aggregate of blood tinged mucous. The specimen is entirelys ubmitted in 1 cassette. JPW 03/08/2022 MICROSCOP IC DESCRIPTI ONThe final diagnosis is based on microscop ic examinati on of appropria te sectionso f all specimens .ADDITION AL INFORMATI ONInterpr eted at [facility] - [address], [facility] [place], [place] [address]Sefa Performed by:[facility] - [facility] [place], [place] [address]Rnzb e : FINAL Gabriel Vargas on Medications Date Name Route Dose Frequency Instructions Start Date End Date Status Potassium Chloride Oral ER Tab Oral 20.0 meq active Rosuvastatin Calcium Oral Oral 20.0 mg active Lidocaine-Priloca ine Topical Cream 2.5 %-2.5 % apply to affected area active 02/27/20 22 Oxycodone Oral Oral 5.0 mg 02/27/20 22 active 01/25/20 22 Ondansetron Oral prn 01/25/20 22 active 01/16/20 22 Acetaminophen Oral Oral 1000.0 mg 01/16/20 22 active Problems Diagnosis Status Date of Diagnosi s Endometrium thickened (finding) Active Disorder of bile duct Active Vital Signs Date Type Value 03/07/2022 Body Temperature 98.30 03/07/2022 Heart Beat 93.00 03/07/2022 Respiratory Rate 18.00 03/07/2022 Oxygen Saturation 97.00 03/07/2022 BSA 1.71 03/07/2022 Pain Scale 10.00 03/07/2022 Weight 152.80 03/07/2022 Height 62.25 03/07/2022 BMI 27.72 03/07/2022 Intravascular Systolic 124 03/07/2022 Intravascular Diastolic 84
--- OUTSIDE RECORDS SUMMARY | 2024-07-21 11:01 | XMS_ITS | Clinical Summary ---
Author Organization [facility] Address [address] [place] [id number] Care Team Providers Care Steeler Name Role Phone Francesco Bonner MD [facility] Center[facility] MD Primary Care Provider Unav ailable Allergies Active Allergy Reactions Criticality Noted Date Comments Atorvastatin 02/04/2017 Oxycodone-Acetaminophen Itching 05/06/2016 Severe itching Medications rosuvastatin (CRESTOR) 20 mg oral tablet Take 1 tablet (20 mg) by mouth once daily. 90 tablet 3 05/07/2022 Active triamterene-hyd rochlorothiazid e (MAXZIDE) 37.5-25 mg oral tablet TAKE 1 TABLET BY MOUTH EVERY DAY 90 tablet 3 05/07/2022 Active potassium chloride (K-DUR) 20 mEq oral extended release tablet Take 1 tablet (20 mEq) by mouth once daily. 90 tablet 3 07/17/2022 Active lidocaine-prilo jus (EMLA) 2.5-2.5 % Top cream cream Apply to skin twice a day. To the knees as needed 30 g 1 02/06/2023 Active Cholecalciferol , Vitamin D3, 10 mcg (400 unit) oral Cap Take 400 Units by mouth Daily. Active ACETAMINOPHEN ORAL Take by mouth. Active HYDROcodone-parvez taminophen (NORCO) 5-325 mg oral tablet Take 0.5-1 tablets by mouth every 6 (six) hours as needed for pain. 5 tablet 03/23/2024 Active Active Problems Problem Noted Date Diagnosed Date Abdominal pain, lower 02/26/2024 COPD with exacerbation 02/26/2024 Disorder of bile duct 02/26/2024 Thickened endometrium 02/26/2024 Vaginitis 02/26/2024 Osteoarthritis of left knee 01/09/2023 Osteoarthritis of right knee 01/10/2022 Overview (02/26/2024): 01/14/2022 Right Total Knee Arthroplasty Osteopenia 07/05/2021 Overview (07/05/2021): 07/24 S-1.0 H-2.0 (Frax 16%, 7%) Subclavian arterial stenosis 06/25/2021 Overview (06/25/2021): 06/25/21 US: Moderate to severe (>50%) RIGHT subclavian artery stenosis (difficult visualization). DDD (degenerative disc disease), lumbar 07/16/19 ASCVD (arteriosclerotic cardiovascular disease) 05/20/2017 Overview (05/20/2017): 05/07/17 CORONARY ANATOMY: Right Dominant. LEFT MAIN: [...] in the 67th percentile Pulmonary nodules 05/20/2017 Overview (12/09/2022): 05/07/17 5 x 3 mm pulmonary nodule [...] 10/02/2021. Hypercholesterolemia 09/17/2016 Asymmetric blood pressures 07/10/2016 Overview (07/10/2016): L>R (Check BP on left arm) PAD (peripheral artery disease) 07/10/2016 Overview (05/20/2017): 12/13 Study reveals the following: There is [...] to both lower extremities. 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 No 11/29/2023 Within the last year, have y ou been humiliated or emotionally abused in other ways by your partner or ex-partner? No Within the last year, have y ou been kicked, hit, slapped, or otherwise physically hurt by your partner or ex-partner? No 11/29/2023 Within the last year, have y ou been raped or forced to have any kind of sexual activity by your partner or ex-partner? No 11/29/2023 PHQ-2 Answer Date Recorded PHQ2 Total 0 03/03/2023 Comments No Sex and Gender Information Value Date Recorded Sex Assigned at Female 11/18/2022 10:50 AM CDT Legal Sex Female 11:32 AM CDT Gender Identity Female 11/18/2022 10:50 AM CDT Sexual Orientation Not on file Last Filed Vital Signs Vital Sign Reading Time Taken Comments Blood Pressure 141/70 03/23/2024 9:45 AM CDT Pulse 64 03/23/2024 9:45 AM CDT Temperature 36.3 C (97.3 F) 03/23/2024 9:15 AM CDT Respiratory Rate 16 03/23/2024 9:45 AM CDT Oxygen Saturation 94% 03/23/2024 9:45 AM CDT Inhaled Oxygen Concentration - - Weight 74.7 kg (164 lb 11.2 oz) 03/23/2024 7:19 AM CDT Height 157.5 cm (5' 2) 03/23/2024 7:19 AM CDT Body Mass Index 30.12 03/23/2024 7:19 AM CDT Plan of Treatment Health Maintenance Due Date Last Done Comments Spirometry 10/21/1944 RSV Vaccines (1 - 1-dose 75+ series) 2015 Osteoporosis Screening 07/05/2023 2, 12/15/2018 (Declined), 02/23/2016 (Declined) Medicare Wellness Visit 11/29/2023 11/29/19 23, 05/23/2021, 05/11/2020, Additional history exists Depression Assessment (PHQ-2) 03/03/2024 03/03/2023 Yearly Review of HCD 03/18/2025 03/18/2024, 02/06/2024, 11/29/2023, Additional history exists Adult Tetanus Booster 02/22/2026 02/23/2016 (Decline d) Colonoscopy 02/22/2026 02/23/2016 (Declined) Pneumococcal 50+ Years Addressed 8 (Declined), 02/23/2016 (Declined) Overridden with the intention of not completing the topic Zoster Vaccine Addressed 03/27/2020, 11/30 (Declined) Overridden with the intention of not completing the topic Influenza Vaccine Discontinued 05/11/2020 (De clined), 02/04/2017 (Declined), 02/23/2016 (Declined) COVID-19 Vaccine Discontinued Medical Devices Implanted Type Area Gluten Settling Tender Device Identifier Shelf Expiration Date Model / Serial / Lot Hydromark T3-01/28/2024 Implanted:Qty: 1 on 01/28/2024 by Amando Green MD Clip Left: Breast / / [id number] Procedures Procedure Name Priority Date/Time Associated Diagnosis Comments XR BONE DENSITY-SPINE & HIP Routine 07/05/2021 10:34 AM SHANK INSPECTOR Screening for osteoporosis Postmenopausal from Last 3 Months or Most Recently Relevant to Health Maintenance Results * XR (JAEL) BONE DENSITY-SPINE & HIP (07/05/2021 10:34 AM SHANK INSPECTOR) Anatomical Region Laterality Modality Extremity Computed Radiogr aphy 07/05/2021 10:3 5 AM SHANK INSPECTOR Impressions 07/05/2021 10:37 AM SHANK INSPECTOR IMPRESSION: Osteopenia. WHO Classification of bone density for post-menopausal women, and men over 50 years of age, is as follows: Normal bone density: T score greater than -1.0. Osteopenia (Low bone density): T score between -1.0 and -2.5. Osteoporosis: T score less than -2.5. REPORT SIGNED BY DR. Gordy Kim 07/05/2021 10:37 AM SHANK INSPECTOR EXAM: DEXA BONE DENSITY STUDY DATE: 07/05/2021 10:14 AM COMPARISON: None submitted. CLINICAL DATA: Osteoporosis screening. Post-menopausal. TECHNIQUE: A bone density evaluation using DEXA (dual energy x-ray absorptiometry) was performed for your patient at the [facility] in [place] using a [employer] ([employer]) unit. FINDINGS: Lumbar Spine (L1 and [...] was performed for your patient at the [facility] in [place] using a [employer] ([employer]) unit. FINDINGS: Lumbar Spine (L1 and [...] Gordy Payne Anup Evans MD XRAY ORDERABLE Final Result from Last 3 Months or Most Recently Relevant to Health Maintenance Insurance [facility] MEDICARE PART A & B [facility] MEDICARE PART A & B MEDICARE PART A & B [facility] Advance Directives For more information, please contact: [phone] * Full Code (Latest Code Status on File) Date Activated Date Inactivated Comments 05/01/2016 4:04 PM 05/11/2016 4:39 PM Question Answer Comments How was code status determined? Patient * Full Code Date Activated Date Inactivated Comments 08/08/2013 5:53 PM 08/09/2013 8:08 PM Question Answer Comments How was code status determined? Patient Care Teams Steeler Relationship Specialty Start Date End Date Francesco Bonner MD PCP - General 03/04/24 Francesco Bonner MD 08/11/13
--- OUTSIDE RECORDS SUMMARY | 2024-07-21 11:02 | XMS_ITS | Clinical Summary ---
Author Organization [employer] [facility] Address [address] [place] [address] Care Team Providers Care Aircraft Communicator Name Role Phone Anup Evans MD Primary Care Provider [phone] Allergies Active Allergy Reactions Criticality Noted Date Comments Atorvastatin Edema Low 02/04/2017 Medications potassium chloride (K-DUR) 20 mEq Extended-Relea se tablet Take 20 mEq by mouth once daily. Active rosuvastatin (CRESTOR) 20 mg tablet Take 20 mg by mouth at bedtime. Active Cholecalcifero l, Vitamin D3, (Vitamin D-3) 400 unit capsule Take 400 units by mouth once daily. Active lidocaine-pril ocaine (EMLA) 2.5-2.5 % cream Apply topically to the knees 2 times per day as needed Active ondansetron (ZOFRAN) 4 mg tablet Take 4-8 mg by mouth every 8 hours if needed for Nausea/Vomiting. Active tiZANidine (ZANAFLEX) 2 mg tablet Take 2 mg by mouth 3 times daily if needed for Muscle Spasm. Active triamterene-hy drochlorothiaz billie, 37.5-25 mg, (MAXZIDE-25) 37.5-25 mg tablet Take 1 Tablet by mouth every morning. Active TURMERIC ORAL Take 1 Each by mouth once daily. Active acetaminophen (TYLENOL EXTRA STRGTH) 500 mg tabletIndicati ons:S/P total knee arthroplasty, left Take 2 Tablets (1,000 mg) by mouth three times daily. Max acetaminophen dose: 4000mg in 24 hrs. 100 Tablet 1 3 Active aspirin (ECOTRIN) 81 mg enteric coated tabletIndicati ons:S/P total knee arthroplasty, left Take 1 Tablet (81 mg) by mouth two times daily with meals. 60 Tablet 3 Active sennosides-doc usate (SENOKOT S) (8.6-50 mg) tabletIndicati ons:S/P total knee arthroplasty, left Take 1 Tablet by mouth two times daily. 50 Tablet 1 3 Active oxyCODONE (ROXICODONE) 5 mg immediate release tabletIndicati ons:S/P total knee arthroplasty, left Take 1-2 Tablets (5-10 mg) by mouth every 4 hours if needed for Pain (For moderate pain. Hold dose if sedated.). 30 Tablet 3 Active Active Problems Problem Noted Date Diagnosed Date Osteoarthritis of left knee 01/09/2023 Uterine mass 02/28/2022 09/13/2022 Overview (09/13/2022): 02/22/22 Pelvic US: The uterus has no myomas. The endometrial stripe is normal thickness. There is moderate amount of fluid in the endometrial cavity. There is a 1.5 cm mass in the cavity. Osteoarthritis of right knee 01/10/2022 Overview (01/15/2022): 01/14/2022 Right Total Knee Arthroplasty Osteopenia 07/05/2021 09/13/2022 Overview (09/13/2022): 07/24 S-1.0 H-2.0 (Frax 16%, 7%) DDD (degenerative disc disease), lumbar 07/16/19 18 09/13/2022 ASCVD (arteriosclerotic cardiovascular disease) 05/20/2017 09/13/2022 Overview (09/13/2022): 05/07/17 CORONARY ANATOMY: Right Dominant. LEFT MAIN: [...] the 67th percentile Pulmonary nodules 05/20/2017 09/13/2022 Overview (09/13/2022): 05/07/17 5 x 3 mm pulmonary nodule [...] opacities or nodules are seen. Hypercholesterolemia 09/17/2016 Overview (09/13/2022): Rosuvastatin Essential hypertension 07/10/2016 Overview (09/13/2022): Triamterene and hydrochlorothiazide Asymmetric blood pressures 07/10/201609/13 Overview (09/13/2022): L>R (Check BP on left arm) PAD (peripheral artery disease) 07/10/2016 09/13/2022 Overview (09/13/2022): 12/13 Study reveals the following: There is [...] disorder 02/23/2016 09/13/2022 Subclavian arterial stenosis 12/01/2013 Overview (09/13/2022): 06/25/21 US: Moderate to severe (>50%) RIGHT [...] Date Recorded PHQ-2 TOTAL SCORE 0 02/22/2022 Comments No Sex and Gender Information Value Date Recorded Sex Assigned at Not on file Legal Sex 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 Gender Identity Not on file Sexual Orientation Not on file Obstetrics History Last Filed Vital Signs Vital Sign Reading Time Taken Comments Blood Pressure 125/63 01/29/2023 1:42 PM CDT Pulse 81 01/29/2023 1:42 PM CDT Temperature 36.8 C (98.2 F) 01/29/2023 1:42 PM CDT Respiratory Rate 16 01/29/2023 1:42 PM CDT Oxygen Saturation 97% 01/29/2023 1:42 PM CDT Inhaled Oxygen Concentration - - Weight 76.2 kg (168 lb) 01/29/2023 1:42 PM CDT Height 157.5 cm (5' 2) 01/13/2023 9:07 AM CDT Body Mass Index 30.73 01/13/2023 9:07 AM CDT Plan of Treatment Health Maintenance Due Date Last Done Comments Tdap 1951 Pneumococcal series for age 50+ (1 of 2 - PCV) 1959 Tetanus booster 1960 DEXA/DXA scan for age 65+ 2005 Medicare Wellness for age 65+ 2005 RSV vaccine for adults or pr egnancy (1 - 1-dose 75+ series) 2015 Zoster (shingles) series for age 50+ (2 of 2) 05/22/2020 03/27/2020 Depression screening for age 12+ 02/25/2023 02/25/2022, 02/22/2022, 02/22/2022 BMI (ht and wt on same day) for age 18+ 09/14/2023 09/13/2022, 02/22/2022, 04/08/2016 COVID-19 vaccine series ( season) 2024 Influenza for age 65+ 02/01/2024 Medical Devices Implanted Type Area Applications Manager Device Identifier Shelf Expiration Date Model / Serial / Lot Cmnt Bone 40g Simplex P Non Atb Mv - [id number] Implanted:Qty: 1 on 01/14/2022 by Moises Souza MD at [facility] Right: Knee [employer] 05/01/2024 6191-1-010 / / [id number] Cmnt Bone 40g Simplex P Non Atb Mv - [id number] Implanted:Qty: 1 on 01/14/2022 by Moises Souza MD at [facility] Right: Knee [employer] 05/01/2024 6191-1-010 / / [id number] Triathlon Primary Tibial Baseplate Implanted:Qty: 1 on 01/14/2022 by Moises Souza MD at [facility] Right: Knee [employer] 10/15/2026 5520-B-400 / / [id number] Triathlon Cruciate Retaining Femoral Implanted:Qty: 1 on 01/14/2022 by Moises Souza MD at [facility] Right: Knee [employer] 11/12/2025 5510-F-402 / / [id number] Implnt Patellar 12c47by Knee X3 Asymmetric [employer]lon - [id number] Implanted:Qty: 1 on 01/14/2022 by Moises Souza MD at [facility] Right: Knee [employer] 08/19/2026 5551-G-320 -E / / [id number] Cmnt Bone 40g Simplex P Non Atb Mv - [id number] Implanted:Qty: 1 on 01/14/2022 by Moises Souza MD at [facility] Right: Knee [employer] 05/01/2024 6191-1-010 / / [id number] Tri[employer]lon X3 Tibial Bearing Insert - [id number] Implanted:Qty: 1 on 01/14/2022 by Moises Souza MD at [facility] Right: Knee [employer] 10/02/2026 5531-G-410 -E / / [id number] Triathlon Cruciate Retaining Femoral Implanted:Qty: 1 on 01/13/2023 by Moises Souza MD at [facility] Left: Knee 11/07/2027 5510-F-401 / / [id number] Description:Triathlon Crucia te Retaining Femoral- Kim #4, Superintendent Construction Lft, Typ CR Insert Tib Sz 4 10mm Knee X3 Condylar Stabilizing Tri[employer]lon - [id number] Implanted:Qty: 1 on 01/13/2023 by Moises Souza MD at [facility] Left: Knee [employer] 11/07/2027 5531-G-410 -E / / [id number] Cmnt Bone 40g Simplex P Non Atb Mv - [id number] Implanted:Qty: 2 on 01/13/2023 by Moises Souza MD at [facility] Left: Knee [employer] 04/01/2025 6191-1-010 / / [id number] Primary Tibial Baseplate Implanted:Qty: 1 on 01/13/2023 by Moises Souza MD at [facility] Left: Knee [employer] 11/25/2027 520-B-400 / / [id number] Description:Triathlon Primar y Tibial Baseplate Kim #[place] [address] [place] [address] MEDICARE PART A HB ONLY MEDICARE PART B HB ONLY MEDICARE PB ONLY Advance Directives * Full Code (Latest Code [...] 8:20 AM 04/22/2016 12:04 PM Care Teams Aircraft Communicator Relationship Specialty Start Date End Date Anup Evans MD PCP - General Internal Medicine 01/29/23
--- OUTSIDE RECORDS SUMMARY | 2024-07-21 11:02 | XMS_ITS | Patient Health Record ---
Author Organization [facility] Address [address] [place] [address] [address] [place] [address] Care Team Providers Care Asphalt Distributor Tender Name Role Phone BLANCA JEROME, SONG Unavailable Unavailable Tatiana Pedro Unavailable [phone] Roseline Anguiano Unavailable [phone] Floresita Santana Unavailable Allergies Allergen (clinical drug ingredient) Drug/Non Drug Allergy documented on EMR Reaction Allergy Type Onset Date Status acetaminophen / oxycodone percocet (oxycodone-acetaminoph en) (uncoded) itching Allergy Active acetaminophen Acetaminophen Unknown Drug Allergy Active atorvastatin Atorvastatin Unknown Drug Allergy A ctive Results Component Value Reference Range Notes Ultrasound : Breast Seed Loc Left Reviewed date:03/05/2024 07:22:10 AM Interpretation: Performing Lab: Notes/Report: Reason For Referral Reason L BREAST SCLEROSING LESION WITH ADH Referring Provider First Name SONG Referring Provider Last Name BLANCA Referring Provider Speciality Diagnostic Radiology Referred Provider Specialty General Surg elsa General Notes Maricarmen Gamboa 01/30/2024 03:40:51 PM >PT SCHEDULED Referral Priority Routine Reason SUR/3 [facility] Diagnosis 1 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) Referral Organization [facility] Referring Provider First Name Floresita Referring Provider Last Name Candice darby Referring Provider Speciality General [facility] Referred Organization [facility] Rebeca Bill [facility] Referred Provider Perla Santana Referred Address [address] [place] [address] [address],[place], [place],[address],[place] Referred Provider Specialty General Surg elsa General Notes Carolyn Kenney 02/02 01:55:35 PM >NO test needed per MDAlfonso Amy 02/04/2024 12:21:20 PM >Cherelle intro sent. Noted:, TEXT [phone], first Available But Can not do 02/18, Pre-op Diagnosis: LEFT breast ADH. , Procedure: Left breast seed-localized excisional biopsy. , Location: [facility]. , Anesthesia: MAC. , Case Length: 1 hr. , Emergency Technician: Viri or TOSHA. , Patient Type: Outpatient. , Position: Supine. , Isolation/Precautions: None. , Special Requests: Rads, no immediate path needed. , Time spent with patient: 20 minutes with an additional 10min spent on chart and imaging review. Moderate complexity MDM. , % of visist spent on counselin%. , Urgency: Tier 2 < 4 weeks. , Appropriate for ASC , Appropriate No, Why Co-Morbidities, Follow Up: MD 1-2 week post-op - in person visit. , 1. Family hx-breast malignancy - Z80.3 , 2. 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 Adopted person - Z02.82, Viri Hamilton 02/06/2024 02:13:03 PM >Called patient and she confirmed 03/04 date. Informed patient I will confirm with [facility] and give her a call back, Viri Hamilton 02/06/2024 02:13:40 PM >Called [facility] and spoke with Unique. Scheduled patient for 03/04 with an 11:30am OR time. Did three way call with (Lyssa) at breast center. Lyssa confirmed patient for 03/04 at for 10am breast center, 11:30 or with an 8:45 am arrival. [facility] [place] notify patient of times. Added patient to calendars for [facility] and [facility] for assist on 03/04 at 11:30am. , PO scheduled for 03/17 at 1pm with [facility] (in person) [facility]. Called patient and reviewed details, also informed her I sent secure message. No further questions at this time, patient will call if she thinks of anything. 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) Referral Organization [facility] Referring Provider First Name Floresita Referring Provider Last Name Candice darby Referring Provider Speciality General Avelina friedman Referred Provider Specialty Genetics General Notes Carolyn Kenney 02/03 09:51:30 AM >Please call patient to schedule Consult, Carolyn Kenney 02/04/2024 09:52:57 AM >Faxed to [facility] Referral Priority Routine Reason Tier 1-SURG 03/23/24 [facility] Diagnosis 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 , Procedure: Left central lumpectomy. , Location: [facility]. , Anesthesia: MAC. , Case Length: 45 min. , Emergency Technician: TOSHA or Viri. , Patient Type: Outpatient. , Position: Supine. , Isolation/Precautions: None. , Special Requests: none. , Urgency: Tier 1 < 14 days up to 4 weeks ok but not preferred. , Appropriate for ASC , Appropriate No, Why Co-morbidities, Follow Up: MD 1-2 week post-op - in person visit. , 1. 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 Aftercare following surgery - Z48.89 (Primary) , 3. Estrogen receptor positive - Z17.0 , [id number], CLARICE GLORY 03/18/2024 08:13:32 AM >03/23? 03/25? 03/30? [place] [facility] [place] [facility] [place] yes, surg at 845 arrive [facility] [place] inform pt times. cherelle sent, GLORY ONEIL 03/18/2024 08:23:05 AM >pt confirmed. po scheduled 03/30 [facility] MG 12pm. cherelle summary sent Clinical Notes GLORY ONEIL 03/18 08:25:23 AM >[id number]/[facility]. 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) Referral Organization [facility] Referring Provider First Name Barnhart Referring Provider Last Name Candice Talavera Referring Provider Speciality General Avelina friedman Referred Provider Specialty Medical Onco logy General Notes Carolyn Kenney 04/06 09:40:11 AM >Please call patient and schedule with Pablito Dawson Brenna 04/06/2024 09:42:01 AM >Faxed to Pablito Dawson Brenna 06/10/2024 02:38:05 PM > [place] [facility] [place] reached out to pt 2x pt not scheduled Referral Priority Routine Reason 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 Diagnosis 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) Referral Organization [facility] Referring Provider First Name Floresita Referring Provider Last Name Candice Talavera Referring Provider Speciality General Avelina friedman Referred Provider Specialty Radiation On cology General Notes Carolyn Kenney 04/06 09:42:18 AM >Please call patient and schedule with Pablito Dawson Brenna 04/06/2024 09:42:51 AM >Faxed to Pablito Dawson Brenna 06/10/2024 02:36:28 PM > [place] [facility] [place] reached [place] to pt 2x pt not scheduled Referral Priority Routine Medications Medication SIG (Take, Route, Frequency, Duration) Notes Start Date End Date Status Rosuvastatin Calcium 20 MG 1 tablet Oral ly Once a day Active Triamterene-HCTZ 37.5-25 MG 1 tablet in the morning Orally Once a day Active Cholecalciferol 25 MCG (1000 UT) 2 tablets Orally Once a day Active Potassium Chloride ER 20 MEQ 1 tablet wi th food Orally Once a day Active Social History Tobacco Use: Social History Observation Description Date Details (start date - stop date) Former Smoker NA - NA Tobacco Control (Standard) Question Answer Notes Tobacco use: Former smoker Section Notes: 1 PPD Retired No Lifting Not Vaccinated COVID Problems Problem Type SNOMED Code ICD Code Onset Dates Problem Status W/U Status Risk Notes Problem 708249477 Family hx-breast malignancy (Z80.3) Active confirmed Problem 970019128 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) Active confirmed Problem 1538637723313007 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) Active confirmed Problem 372352666 Adopted person (Z02.82) Active confirmed Vital Signs Heart Rate 85 /min 03/30/2024 Temperature 98.0 degrees Fahrenheit 03/30/2024 Respiratory Rate 14 /min 03/30/2024 Height-cm 157.48 cm 03/30/2024 Blood pressure diastolic 70 mm Hg 03/30/2024 Weight-kg 74.03 kg 03/30/2024 Height 62 in 03/30/2024 Blood pressure systolic 120 mm Hg 03/30/2024 Weight 163.2 lbs 03/30/2024 BMI 29.85 kg/m2 03/30/2024 Encounters Encounter Location Date Provider Diagnosis TRA[facility] at [facility] [address] [place] [address] 02/03/2024 Floresita Mcfarland Atypical ductal hyperplasia of left breast N60.92 ; Family hx-breast malignancy Z80.3 and Adopted person Z02.82 [facility] [address] [facility] [place] [address] 03/17/2024 Floresita Mcfarland Aftercare following surgery Z48.89 ; Ductal carcinoma in situ (DCIS) of left breast D05.12 and Estrogen receptor positive Z17.[address] [place] [address] 03/30/2024 Floresita Mcfarland Aftercare following surgery Z48.89 and Ductal carcinoma in situ (DCIS) of left breast D05.[address] [place] [address] 01/30/2024 Roseline Anguiano [address] [place] [address] 03/11/2024 Floresita Mcfarland [address] [place] [address] 03/26/2024 Floresita Mcfarland [address] [place] [address] 04/28/2024 Floresita Mcfarland Assessments Encounter Date Diagnosis (ICD Code) Assessment Notes Treatment Notes Treatment Clinical Notes Section Notes 02/03/2024 Family hx-breast malignancy (ICD-10 - Z80.3) 02/03/2024 Atypical ductal hyperplasia of left breast (ICD-10 - N60.92) 03/17/2024 Ductal carcinoma in situ (DCIS) of left breast (ICD-10 - D05.12) 03/17/2024 Aftercare following surgery (ICD-10 - Z48.89) Alex is doing well. Reviewed pathology with her and her son - they had discussed with other daughters and everyone would feel more comfortable proceeding with excision of the nipple for the close margin. I reviewed risks, benefits, alternatives to further surgery including endocrine therapy and radiation. Risks include bleeding, infection, scar, skin/tissue loss, unexpected pathology, and need for further treatment. She prefers to avoid radiaiton and would rather move forward with surgery. Will reschedule bradley 03/30/2024 Ductal carcinoma in situ (DCIS) of left breast (ICD-10 - D05.12) 03/30/2024 Aftercare following surgery (ICD-10 - Z48.89) Alex appears to be doing well. Reviewed pathology with her and her son. Will refer to Med onc and Rad Onc to discuss treatment; discussed that I think it would be good to do the endocrine pill and ok to omit radiation given her age and ER+ status, though that is not the NCCN guidelines for DCIS. She is open to the consults at least. She is quite ambivalent about radiation given her daughter's previous radiation. I will see her back in 6 months for CBE, sooner if issues 02/03/2024 Adopted person (ICD-10 - Z02.82) 03/17/2024 Estrogen receptor positive (ICD-10 - Z17.0) Plan Of Treatment No Information Insurance Providers Payer Name Payer Address Payer Phone Subscriber Number Group Number Insured Name Patient Relationship to Insured Coverage Start Date Coverage End Date MEDICARE NGS [address] [place] [phone] [id number] ALEX SANTIAGO Self - patient is the insured [address] [place], [place] [id number] ALEX SANTIAGO Self - patient is the insured Medical (General) History Medical History History ICD Code tobacco use disorder asymmetric blood pressures PAD essential hypertension hypercholesterolemia ASCVD pulmonary nodules DDD, lumbar subclavian arterial stenosis osteopenia coronary artery calcification seen on CT scan postoperative infection f/h breast cancer - daughter Surgical History Surgery Date(Month/Year) puncture aspration cyst of breast Right cholecystectomy 1970 breast surgery, right - cyst resection 1 996 back surgery, right, L5-S1 hemilaminecto my and discectomy 2013 lumbar laminectomy L5-S1 2016 left knee replacement 2022 ultrasound-guided biopsy of left breast - Dr Green 01/28/2024 Right Knee Replacement Right Eye Lens Surgery Hospitalization History Reason Date(Month/Year) Surgery Child Birthx7
--- OUTSIDE RECORDS SUMMARY | 2024-07-21 11:02 | XMS_ITS ---
Author Organization [facility] Rebeca Bill [address] [place] [address] Care Team Providers Care Cable Splicer Helper Name Role Phone BLANCA JEROME, SONG Unavailable Unavailable Floresita Santana REASON FOR VISIT RADIATION REFERRAL Encounters Encounter Location Date Provider Diagnosis TRAV Bill [address] [place] [address] 04/28/2024 Floresita Mcfarland Plan Of Treatment No Information Progress Notes * ALEX KIRK EDOB:1939 (84 yo F)Acc No.[id number]:04/28/2024 Patient: Corinna ISAÍASMARGARITACarlos Gonzalez :1940 A ge:84 Y S ex:Female Address:[address] [place], [place] [address] [address] * true * Date: Generated for Sarkisi chip/Dalila/eTransmitting on: 0 07/21/2024 11:01 AM DERRICK MAN
--- OUTSIDE RECORDS SUMMARY | 2024-07-21 11:02 | XMS_ITS | CCD ---
Author Name Interface, [facility] Address [address] [facility] [address] [place] [address] [facility] On[facility] Address [address] [facility] [address] [place] [address] Reason for Visit OUTSIDE TEST 5 MIN Encounters Date Name 03/07/2022 Endometrium thickene d (finding) Medications Date Name Route Dose Frequency Instructions Start Date End Date Status Potassium Chloride Oral ER Tab Oral 20.0 meq active Lidocaine-Priloca ine Topical Cream 2.5 %-2.5 % apply to affected area active Rosuvastatin Calcium Oral Oral 20.0 mg active 02/27/20 22 Oxycodone Oral Oral 5.0 mg 02/27/20 22 active 01/25/20 22 Ondansetron Oral prn 01/25/20 22 active 01/16/20 22 Acetaminophen Oral Oral 1000.0 mg 01/16/20 22 active Problems Diagnosis Status Date of Diagnosi s Endometrium thickened (finding) Active Disorder of bile duct Active Social History Date Name Value 03/07/2022 Sex Female
--- OUTSIDE RECORDS SUMMARY | 2024-07-21 11:02 | XMS_ITS | Encounter Summary ---
Author Organization [facility] Address [address] [place] [address] Care Team Providers Care Flanger Name Role Phone Francesco Bonner MD [facility] Anup G[facility]mez MD Primary Care Provider [phone] [facility] Francesco Bonner MD Primary Care Provider Unav ailable Reason for Visit * Reason Onset Date Comments Other 11/19/2021 Return call Chest tightness 11/19/2021 Encounter Details Date Type Department Care Team (Late st Contact Info) Description 11/19/2021 Nurse Triage [facility] Internal Medicine [address] [address] Anup Evans MD [address] [place] [address] [place] [address] Social History Tobacco Use Types Packs/Day Years Used Date Smoking Tobacco: Every Day Cigarettes 1 60 Smokeless Tobacco: Never Alcohol Use Standard Drinks/Week Comments Yes 0 (1 standard drink = 0.6 oz pur e alcohol) Occasional Comments No Sex and Gender Information Value Date Recorded Sex Assigned at Female 11/18/2022 10:50 AM CDT Legal Sex Female 11:32 AM CDT Gender Identity Female 11/18/2022 10:50 AM CDT Sexual Orientation Not on file COVID-19 Exposure Response Date Recorded In the last 10 days, have felicitas oneill been in contact with someone who was confirmed or suspected to have Coronavirus/COVID-19? No / Unsure 11/20/2021 8:57 AM CDT documented as of this encounter Miscellaneous Notes * Telephone Encounter - Oscar Hussein, MADELYN - 11/19/2021 12:01 PM CDT Disposition: FYI-office visit scheduled- encounter closed Actions Requested: None Ok to leave detailed voice message:no PCP: Anup Evans MD Preferred Pharmacy: . Summary of call details: patient has chest pain last Friday last 20 minutes- none since [facility] see mD [id number] brian rs Oscar Romero RN Care command center officer Reason for Disposition [1] Chest pain lasts > 5 minutes [...] last menstrual period? na Protocols used: CHEST PAIN-A- * Telephone Encounter - Nandini Barkley - 11/19/2021 11:47 AM CDT Patient returned call to speak with triage nurse as requested. Please call her at [phone]. Seeother messages. Nandini Barkley [facility] Care Access Department documented in this encounter Plan of Treatment Not on file documented as of this encounter Visit Diagnoses Not on filedocumented in this encounter Care Teams Flanger Relationship Specialty Start Date End Date Anup Evans MD [address] [place] [address] Dr Pérez [facility] [place] [address] PCP - General Internal Medicine 02/23/16 03/04/[address] PÉREZ [address] [place] [address] PCP - Primary Care Clinic 02/23/16 06/12/23 Francesco Bonner MD PCP - General 03/04/24 Francesco Bonner MD 08/11/13 documented as of this encounter
--- OUTSIDE RECORDS SUMMARY | 2024-07-21 11:02 | XMS_ITS ---
Author Organization [facility] Address [address] [place] [address] [address] [place] [address] Care Team Providers Care Stiff Straw Hat Washer Name Role Phone SONG RIOS MD Unavailable Unavailable Floresita Santana Unavailable [phone] Allergies Allergen (clinical drug ingredient) Drug/Non Drug Allergy documented on EMR Reaction Allergy Type Onset Date Status acetaminophen / oxycodone percocet (oxycodone-acetaminoph en) (uncoded) itching Allergy Active acetaminophen Acetaminophen Unknown Drug Allergy Active atorvastatin Atorvastatin Unknown Drug Allergy A ctive Reason For Referral Reason 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 - Dr Pham Diagnosis 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) Referral Organization [facility] Referring Provider First Name Floresita Referring Provider Last Name Candice darby Referring Provider Speciality General [facility] Referred Provider Specialty Medical Onco logy General Notes Carolyn Kenney 04/06 09:40:11 AM >Please call patient and schedule with Pablito Dawson Brenna 04/06/2024 09:42:01 AM >Faxed to Pablito Dawson Brenna 06/10/2024 02:38:05 PM > [facility] has reached out to pt 2x pt not scheduled Referral Priority Routine Reason 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 Diagnosis 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) [facility] Referring Provider First Name Floresita Referring Provider [...] 2x pt not scheduled Referral Priority Routine REASON FOR VISIT +po Left central lumpectomy Medications Medication SIG (Take, Route, Frequency, Duration) [...] th food Orally Once a day Active Vital Signs Height 62 in 03/30/2024 Weight 163.2 lbs 03/30/2024 BMI 29.85 kg/m2 03/30/2024 Temperature 98.0 degrees Fahrenheit 03/30/20 24 Heart Rate 85 /min 03/30/2024 Blood pressure systolic 120 mm Hg 03/30/20 24 Blood pressure diastolic 70 mm Hg 024 Respiratory Rate 14 /min 03/30/2024 Height-cm 157.48 cm 03/30/2024 Weight-kg 74.03 kg 03/30/2024 Encounters Encounter Location Date Provider Diagnosis TRAV Bill at [address] [place] [id number] 03/30/2024 Floresita Mcfarland Aftercare following surgery Z48.89 and Ductal carcinoma in situ (DCIS) of left breast D05.12 Assessments Encounter Date Diagnosis (ICD Code) Assessment Notes Treatment Notes Treatment Clinical Notes Section Notes 03/30/2024 Aftercare following surgery (ICD-10 - Z48.89) [...] 6 months for CBE, sooner if issues 03/30/2024 Ductal carcinoma in situ (DCIS) of left breast (ICD-10 - D05.12) Plan Of Treatment Treatment Notes Assessment Notes Aftercare following surgery Alex appear s to be doing well. Reviewed pathology with [...] 6 months for CBE, sooner if issues Referrals Referral Date Details 03/30/2024 03/30/2024, Left ER+ DCIS s/p central lumpectomy - Dr Pham 03/30/2024 03/30/2024, Left ER+ DCIS s/p central lumpectomy Next Appt Details Follow Up: 6 Months, Reason: Progress Notes * ALEX KIRK EDOB:1939 (83 yo F)Acc No.[id number]:03/30/2024 Progress Note Patient: ALEX CHANDLER Provider: Teddy Mcfarland MD :1940 A ge:83 Y S ex:Female Date:03/30/2024 Address:[address] [place] [address] Subjective: * Chief Complaints: * + po Left central lumpectomy * HPI: I nterim History: Patient is s/p l eft breast excisional biopsy for ADH finding DCIS, followed by central lumepctomy for close anterior margin. Doing well. Minimally sore. Happy with cosmesis. Pathology was consistent with n o residual DCIS/malignancy/atypia. prior biopsy change. * Medical History: * Medications: T akingTriamterene-HCTZ 37.5-25 MG Tablet 1 tablet in the morning Orally Once a day Rosuvastatin Calcium 20 MG Tablet 1 tablet Orally Once a day Potassium Chloride ER 20 MEQ Tablet Extended Release 1 tablet with food Orally Once a day Cholecalciferol 25 MCG (1000 UT) Capsule 2 tablets Orally Once a day Medication List reviewed and reconciled with the patientTaking Triamterene-HCTZ 37.5-25 MG Tablet 1 tablet in the morning Orally Once a day Taking Rosuvastatin Calcium 20 MG Tablet 1 tablet Orally Once a day Taking Potassium Chloride ER 20 MEQ Tablet Extended Release 1 tablet with food Orally Once a day Taking Cholecalciferol 25 MCG (1000 UT) Capsule 2 tablets Orally Once a day Medication List reviewed and reconciled with the patient * Allergies: A torvastatinpercocet (oxycodone-acetaminophen): itching - Side EffectsAcetaminophenno[Allergies Verified] Objective: * Vitals: H t: 62 in, Wt: 163.2 lbs, BMI:29.85Index, Temp:98.0F, HR:85/min, BP:120/70mm Hg, RR:14/min, Ht-cm: 157.48 cm, Wt-k.03 kg. * Examination: G eneral Examination: GENERAL APPEARANCE: a lert, in no acute distress. LUNGS: n o dyspnea, no audible wheezing. BREASTS: l eft linear scar c/d/i slight scab at middle, excellent cosmesis, no palpable fluid or mass, no erythema or drainage. PSYCH: a lert, oriented x3, cooperative with exam. ? Assessment: * Assessment: 1. D uctal carcinoma in situ (DCIS) of left breast - D05.12 2 . A ftercare following surgery - Z48.89 (Primary) Plan: * Treatment: 2. D uctal carcinoma in situ (DCIS) of left breast Referral To:Medical Oncology Reason:Left ER+ DCIS s/p central lumpectomy - Dr Pham Referral To:Radiation Oncology Reason:Left ER+ DCIS s/p central lumpectomy * Procedure Codes: * Follow Up: 6 Months * * UAGE PATH Sign off status: Completed true * Provider: Teddy Mcfarland MD Date: Generated for Pradip saunders/Dalila/Mohsenitting on: 0 07/21/2024 11:01 AM LANGUAGE PATH History and Physical Notes * HPI (History of Present Illness) Category Sub-Category Detail Notes Category Not es Interim History Patient is s/p left breast exci sional biopsy for ADH finding DCIS, followed by central lumepctomy for close anterior margin. Doing well. Minimally sore. Happy with cosmesis Pathology was consistent with no residua l DCIS/malignancy/atypia. prior biopsy change Examination Category Sub-Category Detail Notes Category Not es General Examination GENERAL APPEARANCE: alert, in no a cute distress LUNGS: no dyspnea, no audib le wheezing BREASTS: left linear scar c/d /i slight scab at middle, excellent cosmesis, no palpable fluid or mass, no erythema or drainage PSYCH: alert, oriented x3, cooperative with exam Consultation Request Notes Referral Date Referring Provider Referred Provider Not es 03/30/2024 Floresita Santana , Left ER+ DCIS s/p central lumpectomy - Dr Pham 03/30/2024 Floresita Santana , Left ER+ DCIS s/p central lumpectomy
--- OUTSIDE RECORDS SUMMARY | 2024-07-21 11:02 | XMS_ITS | Referral Summary ---
Author Organization [facility] Address [address] [place] [address] Care Team Providers Care Bartender Helper Name Role Phone Francesco Bonner MD [facility] Primary Care Provider Unav ailable [...] Asked; Counseling Given: Not Answered Comments:06/05 PPD [id number] DT, CLOTH BALE HEADER 12/18/2022 Alcohol Use Standard Drinks/Week Comments Not [...] 03/23/2024 7:19 AM CDT Plan of Treatment Not on file Medical Devices Implanted Type Area Horticultural Agent Device Identifier Shelf Expiration Date Model / Serial / Lot Hydromark T3-01/28/2024 Implanted:Qty: 1 on 01/28/2024 by Amando Green MD Clip Left: Breast / / [id number] Procedures Procedure Name Priority Date/Time Associated Diagnosis Comments XR BONE DENSITY-SPINE & HIP Routine 07/05/2021 10:34 AM EMAIL MARKETING MANAGER Screening for osteoporosis Postmenopausal from Last 3 Months or Most Recently Relevant to Health Maintenance Results * XR (MDIP) BONE DENSITY-SPINE & HIP (07/05/2021 10:34 AM EMAIL MARKETING MANAGER) Anatomical Region Laterality Modality Extremity Computed Radiogr aphy 07/05/2021 10:3 5 AM EMAIL MARKETING MANAGER Impressions 07/05/2021 10:37 AM EMAIL MARKETING MANAGER IMPRESSION: Osteopenia. WHO Classification of bone density for post-menopausal women, and men over 50 years of age, is as follows: Normal bone density: T score greater than -1.0. Osteopenia (Low bone density): T score between -1.0 and -2.5. Osteoporosis: T score less than -2.5. REPORT SIGNED BY DR. Gordy Payne Narrative 07/05/2021 10:37 AM EMAIL MARKETING MANAGER EXAM: DEXA BONE DENSITY STUDY DATE: 07/05/2021 10:14 AM COMPARISON: None submitted. CLINICAL DATA: Osteoporosis screening. Post-menopausal. TECHNIQUE: A bone density evaluation using DEXA (dual energy x-ray absorptiometry) was performed for your patient at the [facility] in [place] using a HoloTwyxt (Discovery) unit. FINDINGS: Lumbar Spine (L1 and [...] was performed for your patient at the [facility] in [place] using a Hologic (Discovery) unit. FINDINGS: Lumbar [...] Most Recently Relevant to Health Maintenance Insurance [facility] MEDICARE PART A & B [facility] MEDICARE PART A & [place] [id number] MEDICARE PART A & B [facility] Advance Directives For more information, please contact: [phone] * Full Code (Latest Code Status on File) Date Activated Date Inactivated Comments 05/01/2016 4:04 PM 05/11/2016 4:39 PM Question Answer Comments How was code status determined? Patient * Full Code Date Activated Date Inactivated Comments 08/08/2013 5:53 PM 08/09/2013 8:08 PM Question Answer Comments How was code status determined? Patient Care Teams Bartender Helper Relationship Specialty Start Date End Date Francesco Bonner MD PCP - General 03/04/24 Francesco Bonner MD 08/11/13
[2024-07-21 11:10] VITALS: BP 101/79; PULSE 97; RESP 22; TEMP 37.1; O2SAT 95; BMI 30.7
--- NOTE | 2024-07-21 11:16 | ED.GENADULT ---
HPI - General Adult General Date Seen: 07/21/24 Chief complaint: Abdominal Pain Stated complaint: Constipation, nausea, abdominal pain Time Seen by Provider: 07/21/24 11:16 History of Present Illness HPI narrative: Off 84-year-old female with a history of cholecystectomy presenting to the ER today with concern for abdominal pain. She has a history of constipation and has been ?more constipated? for the past few months. She has intermittently tried MiraLax, Ex-Lax, docusate,. She is feeling bloated, nauseous for the past week. She has been having trouble eating for the past couple of days because she just feels bloated and full. She is not vomiting but she feels nauseous. No fever. She does get cramps of pain, typically through her entire abdomen Initially she says she has only really had trouble with constipation for the past couple of weeks. She has a little bit vague about what she is taking for it. It sounds like she takes 3 ?little pills,? (possibly docusate). Initially she did not mention it is part of her bowel regimen, but it sounds like she also takes MiraLax 1 capful mixed in water almost every day. She also tries to drink 64 oz of water every day, but is not able to do so for the past several days. Her only past abdominal surgical history is a open cholecystectomy done many years ago. She had a breast cancer surgery about 4 months ago for a small localized tumor in her left breast. She has had follow-up surveillance workup after that surgery and has no signs of metastasis. She does not take any opiate pain killers. She does have low back pain and spinal stenosis with previous back surgery. She is on cyclobenzaprine for that. She takes Tylenol for back Sometimes when she gets really constipated she has difficulty emptying her bladder out but no other urinary symptoms. She did want to come here to the ER today but her son, pallavi, made her come in. History from neck is a bit different than that obtained from the patient. He says she has actually had trouble constipation off and on for a couple of years, initially triggered after she had some opiate pain killers after her back surgery. She has not been on opiates for the past couple of months. Related Data Home Medications ?Medication ?Instructions ?Recorded ?Confirmed potassium chloride 20 mEq 20 meq PO DAILY 02/06/22 07/21/24 tablet,extended release(part/cryst) cholecalciferol (vitamin D3) 1 cap PO DAILY 02/01/23 07/21/24 rosuvastatin 20 mg PO HS 02/01/23 07/21/24 rosuvastatin 20 mg tablet (Crestor) 20 mg PO DAILY 07/21/24 07/21/24 triamterene 37.5 1 cap PO DAILY 07/21/24 07/21/24 mg-hydrochlorothiazide 25 mg capsule Previous Rx's ?Medication ?Instructions ?Recorded amoxicillin 875 mg-potassium 1 tab PO Q12H #14 tabs 07/21/24 clavulanate 125 mg tablet ondansetron 4 mg disintegrating 4 mg PO Q8H PRN nausea and 07/21/24 tablet vomiting #10 tabs Allergies Allergy/AdvReac Type Severity Reaction Status Date / Time No Known Drug Allergies Allergy Verified 07/21/24 12:39 PFSH PFS Social History Smoking Status: Current every day smoker What tobacco products do you use: cigarettes Smoking packs per day: 1 Smoking cigarettes per day: 20.0 Years smoked: 70 Smoking pack-years: 70.00 Do you use any of these nicotine containing products: None Second hand tobacco smoke exposure: No How often do you have a drink containing alcohol: never AUDIT-C Alcohol total score: 0 Non-prescribed substance use: denies use service: No Exam Narrative: Exam Narrative: Constitutional: Appears well-developed and well-nourished. Alert. Uncomfortable appearing. Somewhat vague about her history and seems embarrassed to be talking about bowel movements. Non toxic. HENT: Head: Atraumatic. Nose: Nose normal. Mouth/Throat: Oral mucosa is clear and moist. no trismus. Pharynx normal. Tonsils symmetric. No tonsillar enlargement, erythema, or exudate. Eyes: Conjunctivae normal. EOM normal. Pupils equal, round, and reactive to light. No scleral icterus. Neck: Normal range of motion. Neck supple. No tracheal deviation present. Cardiovascular: Normal rate, regular rhythm. No gallop. No friction rub. No murmur heard. Symmetric radial artery pulses Pulmonary/Chest: Effort normal. No stridor. No respiratory distress. No wheezes. No rales. No rhonchi . No tenderness. Abdominal: Soft. Long linear right upper quadrant scar with a small punctate scar below at from her cholecystectomy and subsequent biliary drain Bowel sounds normal. No distension. No on tympanic. No mass. Mild diffuse tenderness. No rebound. No guarding. Rectal: Performed with female watch supervisor. Normal rectal tone. Minimal stool in the rectal vault. No obstructing masses. Musculoskeletal: RUE: Normal range of motion. No tenderness. No deformity LUE: Normal range of motion. No tenderness. No deformity RLE: Normal range of motion. No edema. No tenderness. No deformity LLE: Normal range of motion. No edema. No tenderness. No deformity Neurological: Alert and oriented to person, place, and time. Normal strength. CN II-VII intact. No sensory deficit. GCS eye subscore is 4. GCS verbal subscore is 5. GCS motor subscore is 6. Normal coordination Skin: Skin is warm and dry. No rash noted. No pallor. Normal capillary refill. Psychiatric: Normal mood. Normal affect. She is sheepish when discussing her bowel habits Const: Vital Signs, click to edit/add: Vital Signs - 24 hr 07/21/24 11:10 07/21/24 13:09 Temperature 98.7 F Pulse Rate 86 Pulse Rate [Pulse Oximeter] 97 Respiratory Rate 22 16 Blood Pressure 96/69 Blood Pressure [Ri ght Upper Arm] 101/79 Pulse Oximetry 95 98 Oxygen Delivery Me thod Room Air Room Air Course Vital Signs Vital signs: Initial Vital Signs Temperature 98.7 F 07/21/24 11:10 Temperature Source Temporal Artery Scan 07/21/24 11:10 Pulse Rate 97 07/21/24 11:10 Respiratory Rate 22 07/21/24 11:10 Blood Pressure 101/79 07/21/24 11:10 Blood Pressure Mean 86 07/21/24 11:10 Blood Pressure Position Semi-Fowlers 07/21/24 11:10 Pulse Oximetry 95 07/21/24 11:10 Oxygen Delivery Method Room Air 07/21/24 11:10 Vital Signs Temperature 98.7 F 07/21/24 11:10 Pulse Rate 97 07/21/24 11:10 Respiratory Rate 22 07/21/24 11:10 Blood Pressure 101/79 07/21/24 11:10 Pulse Oximetry 95 07/21/24 11:10 Oxygen Delivery Method Room Air 07/21/24 11:10 Temperature 98.7 F 07/21/24 11:10 Pulse Rate 86 07/21/24 13:09 Respiratory Rate 16 07/21/24 13:09 Blood Pressure 96/69 07/21/24 13:09 Pulse Oximetry 98 07/21/24 13:09 Oxygen Delivery Method Room Air 07/21/24 13:09 Medical Decision Making MDM Narrative Medical decision making narrative: Presented to the Emergency Department with concern for constipation leading to nausea and abdominal pain. Patient was convinced that she was constipated since she has only had small bowel movements for the past couple of weeks. The differential diagnosis of abdominal pain includes: Appendicitis, Bowel Obstruction, Ulcer, Ischemia, Cholecystitis, Diverticulitis, Pancreatitis, UTI, kidney stone, Enteritis/Colitis, amongst many other etiologies. Rectal exam really did not show much stool in the rectal vault in abdomen did not seem particularly distended. Concern here is that there is some other cause for her pain other than constipation. Laboratory testing does not reveal a cause for the patient's pain. Mildly abnormal bilirubin. Has history of cholecystectomy. Other LFTs normal. No pain localizing to the right upper quadrant. No jaundice. Recommend follow-up within 1-2 weeks for recheck with PCP. CT imaging does show evidence for acute uncomplicated sigmoid diverticulitis. I think antibiotic treatment for this diverticulitis is indicated based on the patient's age and duration of symptoms (a couple of weeks). Fortunately no evidence for associated perforation, obstruction, abscess. At this point no indication for immediate surgical intervention. She is otherwise hemodynamically stable, nontoxic, afebrile. I think it is reasonable to try her on a course of outpatient antibiotics (Augmentin). Discussed need to follow-up within 2-3 days for recheck, and return to the ER if worse. The patient also understands that if they worsen, they should return to the ER right away. I discussed the uncertainty about the diagnosis and answered the patient's questions. Abdominal pain return precautions discussed. She already has an appointment scheduled with her PCP in 2 days. Lab Data Labs: Lab Results 07/21/24 07/21/24 Range/Units 12:00 12:06 WBC 8.40 (4.50-11.00) K/uL RBC 4.62 (4.00-5.20) m/uL Hgb 14.4 (12.0-16.0) gm/dL Hct 43.7 (33.0-51.0) % MCV 95 (80-100) fL MCH 31 (26-34) pg MCHC 33 (32-36) gm/dL RDW Coeff of Shira 12.3 (11.5-15.5) % Plt Count 219 (140-440) K/uL Neut % (Auto) 65.1 (42.0-72.0) % Lymph % (Auto) 26.0 (20-44) % Beadle % (Auto) 7.4 (0.0-11.0) % Eos % (Auto) 1.4 (0.0-7.0) % Baso % (Auto) 0.1 (0.0-3.0) % Neut # (Auto) 5.47 (1.7-7.0) K/uL Lymph # (Auto) 2.18 (0.90-2.90) K/uL Beadle # (Auto) 0.60 (0.00-0.90) K/UL Eos # (Auto) 0.12 (0.00-0.50) K/uL Baso # (Auto) 0.01 (0.00-0.30) K/uL Abs Immat Gran (auto) 0.00 (0.00-0.30) K/uL Imm/Tot Granulo (auto) 0.0 % Sodium 138 (135-149) mmol/L Potassium 4.1 (3.6-5.1) mmol/L Chloride 98 (96-114) mmol/L Carbon Dioxide 30 (20-32) mmol/L Anion Gap 10 (7-15) mEq/L BUN 10 (7-30) mg/dL Creatinine 0.8 (0.5-1.5) mg/dL Estimated Creat Clear 33.12 Estimated GFR 73 ml/min Glucose 105 (60-115) mg/dL Calcium 9.9 (8.4-10.6) mg/dL Total Bilirubin 1.7 H (0.1-1.5) mg/dL AST 33 (12-35) U/L ALT 24 (4-35) U/L Alkaline Phosphatase 61 (40-150) U/L Total Protein 7.6 (6.0-8.3) g/dL Albumin 4.7 (3.3-5.0) g/dL Lipase 194 (23-300) U/L POC Creatinine 1.0 (0.6-1.3) mg/dl Imaging Data CT scan - abdomen: Attestation: I have reviewed the pertinent imaging results. Radiologist's impression: Impression: 1. Acute, uncomplicated sigmoid diverticulitis. 2. Additional incidental findings as detailed above. Discharge Plan Discharge Clinical Impression: Diverticulitis, Abnormal bilirubin test Patient Disposition: Home, Self-Care Condition: Stable Instructions: Diverticulitis (DC) Additional Instructions: As we discussed, your CT scan today does not show much constipation. It does show a condition called diverticulitis which is affecting your sigmoid colon. We are going to treat your diverticulitis with a course of antibiotics. Be careful. If you have worsening symptoms such as worsening pain, worsening nausea vomiting, bloody diarrhea, fever, please come back to the ER right away. Please recheck with your regular doctor on Friday for re-evaluation. Sometimes diverticulitis can lead to very severe complications. Use the antibiotic twice daily for 7 days to help treat your diverticulitis. Your laboratory work today shows that you have a mildly abnormal liver function test. Your bilirubin level is slightly higher than normal at 1.7. Please have your regular doctor recheck your bilirubin within 1-2 weeks. Prescriptions: New ondansetron 4 mg tablet,disintegrating 4 mg PO Q8H PRN (Reason: nausea and vomiting) Qty: 10 0RF amoxicillin-pot clavulanate 875-125 mg tablet 1 tab PO Q12H Qty: 14 0RF No Action triamterene-hydrochlorothiazid 37.5-25 mg capsule 1 cap PO DAILY rosuvastatin [Crestor] 20 mg tablet 20 mg PO DAILY potassium chloride 20 mEq tablet,ER particles/crystals 20 meq PO DAILY Patient Comments: TAKE ONE TABLET BY MOUTH EVERY DAY rosuvastatin 20 mg PO HS cholecalciferol (vitamin D3) 1 cap PO DAILY Follow Up/Referrals: Provider,Not a Local [Primary Care Provider] - Stand Alone Forms: Organically Maidth Info Instructions
--- NOTE | 2024-07-21 11:59 | CRLHL7_ITS ---
For Patients: As a result of the Century Cures Act, medical imaging exams and procedure reports are released immediately into your electronic medical record. You may view this report before your referring provider. If you have questions, please contact your health care provider. Indication: ABD PAIN. CONSTIPATION, NAUSEA Technique: CT abdomen/pelvis with IV contrast, 82 mL Isovue 370 Comparison: CT abdomen/pelvis on February 13, 2022 Findings: Lower thorax: Similar appearing atelectatic changes in the lingula. Abdomen/pelvis: The liver is unremarkable in appearance. Status post cholecystectomy with expected postsurgical biliary ductal dilatation, similar in appearance compared to prior exam. The spleen, pancreas, and bilateral adrenal glands are unremarkable in appearance. Stable small splenule near the splenic hilum. The kidneys are normal in size and perfused in a normal fashion. Multiple simple appearing parapelvic renal cysts bilaterally. No renal calculi or hydroureteronephrosis. The bladder is unremarkable in appearance. The uterus and bilateral adnexa are within normal limits in appearance. Small hiatal hernia. Similar-appearing small duodenal diverticulum. The appendix is within normal limits in appearance. Diverticulosis of the sigmoid colon with small short segment of circumferential colonic wall thickening and a few minimally inflamed diverticula, consistent with acute diverticulitis. Trace free fluid in the left lower abdomen/pelvis. No free air. No abscess. No abdominopelvic lymphadenopathy. No abdominal aortic aneurysm. Moderate calcified and noncalcified atherosclerosis of the aortoiliac system. Soft tissue/musculoskeletal: Tiny fat containing umbilical hernia. Multilevel degenerative changes of the spine. Degenerative changes of the bilateral sacroiliac joints. No suspicious osseous lesions. Impression: 1. Acute, uncomplicated sigmoid diverticulitis. 2. Additional incidental findings as detailed above. Please note that all CT scans at this facility use dose modulation, iterative reconstruction, and/or weight-based dosing when appropriate to reduce radiation dose to as low as reasonably achievable. Dictated by Arturo James MD @ 07/21/2024 1:06:36 PM (Electronically Signed)
--- OUTSIDE RECORDS SUMMARY | 2024-07-21 12:15 | XMS_ITS | Clinical Summary ---
Author Organization [employer] [facility] Address [address] [place] [address] Care Team Providers Care Bandmill Operator Name Role Phone Anup Evans MD Primary Care Provider [phone] Allergies Active Allergy Reactions Criticality Noted Date [...] on file Legal Sex Female 7:20 AM TIP LENGTH CHECKER Gender Identity Not on file Sexual Orientation [...] 65+ 02/01/2024 Medical Devices Implanted Type Area Marking Machine Tender Device Identifier Shelf Expiration Date Model / Serial / Lot Cmnt Bone 40g Simplex P Non Atb Mv - [id number] Implanted:Qty: 1 on 01/14/2022 by Moises Souza MD at [facility] Right: Knee [employer] 05/01/2024 6191-1-010 / / [id number] Cmnt Bone 40g Simplex P Non Atb Mv - [id number] Implanted:Qty: 1 on 01/14/2022 by Moises Souza MD at [facility] Right: Knee [employer] 05/01/2024 6191-1-010 / / [id number] Triathlon Primary Tibial Baseplate Implanted:Qty: 1 on 01/14/2022 by Moises Souza MD at [facility] Right: Knee [employer] 10/15/2026 5520-B-400 / / [id number] Triathlon Cruciate Retaining Femoral Implanted:Qty: 1 on 01/14/2022 by Moises Souza MD at [facility] Right: Knee [employer] 11/12/2025 5510-F-402 / / [id number] Implnt Patellar 77w25sk Knee X3 Asymmetric Triathlon - [id number] Implanted:Qty: 1 on 01/14/2022 by Moises Souza MD at [facility] Right: Knee [employer] 08/19/2026 5551-G-320 -E / / [id number] Cmnt Bone 40g Simplex P Non Atb Mv - [id number] Implanted:Qty: 1 on 01/14/2022 by Moises Souza MD at [facility] Right: Knee [employer] 05/01/2024 6191-1-010 / / [id number] Triathlon X3 Tibial Bearing Insert - [id number] Implanted:Qty: 1 on 01/14/2022 by Moises Souza MD at [facility] Right: Knee [employer] 10/02/2026 5531-G-410 -E / / [id number] Triathlon Cruciate Retaining Femoral Implanted:Qty: 1 on 01/13/2023 by Moises Souza MD at [facility] Left: Knee 11/07/2027 5510-F-401 / / [id number] Description:Triathlon Crucia te Retaining Femoral- Kim #4, Clinical Trials Manager Lft, Typ CR Insert Tib Sz 4 10mm Knee X3 Condylar Stabilizing Triathlon - [id number] Implanted:Qty: 1 on 01/13/2023 by Moises Souza MD at [facility] Left: Knee [employer] 11/07/2027 5531-G-410 -E / / [id number] Cmnt Bone 40g Simplex P Non Atb Mv - [id number] Implanted:Qty: 2 on 01/13/2023 by Moises Souza MD at [facility] Left: Knee [employer] 04/01/2025 6191-1-010 / / [id number] Primary Tibial Baseplate Implanted:Qty: 1 on 01/13/2023 by Moises Souza MD at [facility] Left: Knee [employer] 11/25/2027 520-B-400 / / [id number] Description:Triathlon Primar y Tibial Baseplate Kim #[place] [address] [place] [address] MEDICARE PART A HB ONLY MEDICARE PART [...] 8:20 AM 04/22/2016 12:04 PM Care Teams Bandmill Operator Relationship Specialty Start Date End Date Anup Evans MD PCP - General Internal Medicine 01/29/23
--- OUTSIDE RECORDS SUMMARY | 2024-07-21 12:15 | XMS_ITS | CCD ---
Author Name Interface, [id number] lity Address [address] [facility] [address] [place] [address] [facility] Address [address] [facility] [address] [place] [address] Reason for Visit OUTSIDE TEST 5 MIN [...]
--- OUTSIDE RECORDS SUMMARY | 2024-07-21 12:15 | XMS_ITS | Data Portability ---
[facility] Address [address] [place] [address] Care Team Providers Care Senior It Auditor Name Role Phone YULI WATKINS Primary Care Provider Assessment Encounter Date Assessment Date Assessment LastModified [...] meantime with any further questions or concerns. [id number] Not available 05/23/2016 15:02:02 Plan of [...] Encounter Closed Date Diagnosis/Indication Diagnosis SNOMED-CT Code Diagnosis ICD10 Code Diagnosis Note 7949 [facility] Office [address] [place] [address] 04/04/2016 17:49:06 04/04/2016 17:49:33 8381 [facility] - () [address] [place] [address] 2016 08:40:49 04/24/2016 09:20:35 8901 [facility] - () [address] [place] [address] 05/16/2016 10:33:35 05/16/2016 10:34:01 9094 [facility] [address] [place] [address] 05/23/2016 14:11:54 05/24/2016 08:55:11 Health Concerns Section Related Observation LastModified by Organization Detai ls LastModified Time None Recorded Concern Status LastModified by Organization Details LastModified Time None Recorded Advance Directives Directive None Recorded Payers Encounter Date Sequence Insurance Name Policy Number Policy Singer Covered Member ID Singer Member ID Guarantor Name 04/04/2016 1 [place] [employer] Jennifer E Chalstrom [id number] Jennifer E Kelsey 04/04/2016 2 () Jennifer E Chalstrom [id number] Jennifer E Kelsey 04/22/2016 1 [place] [employer] Jennifer E Chalstrom [id number] Jennifer E Chalstrom 04/22/2016 2 () Jennifer E Chalstrom [id number] Jennifer E Chalstrom 05/09/2016 1 [place] [employer] Jennifer E Chalstrom [id number] Jennifer E Chalstrom 05/09/2016 2 () Jennifer E Chalstrom [id number] Jennifer E Chalstrom 05/23/2016 1 [place]ICARE [place]: [employer] Jennifer E Chalstrom [id number] Jennifer Cole 05/23/2016 2 () Jennifer oCle [id number] Jennifer Cole Notes Date Note Type Note Provider Name and Address Organization Details Recorded Time 05/23/2016 text/html Jennifer Cole comes in to Neurosurgery clinic [...] has had no drainage from her incision. QUINN Lerma - [facility] 05/24/2016 10:10:26 OBGyn Episode No OBEpisode recorded.
--- OUTSIDE RECORDS SUMMARY | 2024-07-21 12:15 | XMS_ITS | Encounter Summary ---
Author Organization [facility] Address [address] [place] [address] Care Team Providers Care Tire Setter Name Role Phone Francesco Bonner MD Un[facility]up G[facility]mez MD Primary Care Provider [phone] [facility] Francesco Bonner MD Primary Care Provider Unav ailable Reason for Visit * Reason Onset Date Comments Other 11/19/2021 Return call Chest tightness 11/19/2021 Encounter Details Date Type Department Care Team (Late st Contact Info) Description 11/19/2021 Nurse Triage [facility] Internal Medicine [address] [address] Anup Evans MD [address] [place] [address] [place] [address] Social History Tobacco Use Types [...] last Friday last 20 minutes- none since [facility] see mD [id number] brian rs Oscar Romero RN Care blasting entryman Reason for Disposition [1] Chest pain lasts [...] nurse as requested. Please call her at [phone]. Seeother messages. Nandini Barkley [facility] Care Access Department documented in this encounter Plan of Treatment Not on file documented as of this encounter Visit Diagnoses Not on filedocumented in this encounter Care Teams Tire Setter Relationship Specialty Start Date End Date Anup Evans MD [address] [place] [address] Dr Pérez [facility] [place] [address] PCP - General Internal Medicine 02/23/16 03/04/[address] PÉREZ [address] [place] [address] PCP - Primary Care Clinic 02/23/16 06/12/23 Francesco Bonner MD PCP - General 03/04/24 Francesco Bonner MD 08/11/13 documented as of this encounter
--- OUTSIDE RECORDS SUMMARY | 2024-07-21 12:15 | XMS_ITS | Referral Summary ---
Author Organization [facility] Address [address] [place] [address] Care Team Providers Care Mechanical Research Engineer Name Role Phone Francesco [facility] MD [facility] Primary Care Provider [...] Asked; Counseling Given: Not Answered Comments:06/05 PPD [id number] DT, CVICU RN 12/18/2022 Alcohol Use Standard Drinks/Week Comments Not [...] on file Medical Devices Implanted Type Area Manager Flight Operations Device Identifier Shelf Expiration Date Model / Serial / Lot Hydromark T3-01/28/2024 Implanted:Qty: 1 on 01/28/2024 by Amando Green MD Clip Left: Breast / / [id number] Procedures Procedure Name Priority Date/Time Associated Diagnosis Comments XR BONE DENSITY-SPINE & HIP Routine 07/05/2021 10:34 AM GREENS PLANTER Screening for osteoporosis Postmenopausal from Last 3 Months or Most Recently Relevant to Health Maintenance Results * XR (MDIP) BONE DENSITY-SPINE & HIP (07/05/2021 10:34 AM GREENS PLANTER) Anatomical Region Laterality Modality Extremity Computed Radiogr aphy 07/05/2021 10:3 5 AM GREENS PLANTER Impressions 07/05/2021 10:37 AM GREENS PLANTER IMPRESSION: Osteopenia. WHO Classification of bone density for post-menopausal women, and men over 50 years of age, is as follows: Normal bone density: T score greater than -1.0. Osteopenia (Low bone density): T score between -1.0 and -2.5. Osteoporosis: T score less than -2.5. REPORT SIGNED BY DR. Gordy Payne Narrative 07/05/2021 10:37 AM GREENS PLANTER EXAM: DEXA BONE DENSITY STUDY DATE: 07/05/2021 10:14 AM COMPARISON: None submitted. CLINICAL DATA: Osteoporosis screening. Post-menopausal. TECHNIQUE: A bone density evaluation using DEXA (dual energy x-ray absorptiometry) was performed for your patient at the [facility] in [place] using a [employer] (Discovery) unit. FINDINGS: Lumbar Spine (L1 and [...] was performed for your patient at the [facility] in [place] using a [employer] (Discovery) unit. FINDINGS: Lumbar [...] Most Recently Relevant to Health Maintenance Insurance [facility] MEDICARE PART A & B [facility] MEDICARE PART A & [place] [id number] MEDICARE PART A & B [facility] Advance Directives For more information, please contact: [phone] * Full Code (Latest Code Status on File) Date Activated Date Inactivated Comments 05/01/2016 4:04 PM 05/11/2016 4:39 PM Question Answer Comments How was code status determined? Patient * Full Code Date Activated Date Inactivated Comments 08/08/2013 5:53 PM 08/09/2013 8:08 PM Question Answer Comments How was code status determined? Patient Care Teams Mechanical Research Engineer Relationship Specialty Start Date End Date Francesco Bonner MD PCP - General 03/04/24 Francesco Bonner MD 08/11/13
--- OUTSIDE RECORDS SUMMARY | 2024-07-21 12:15 | XMS_ITS ---
Author Name Interface, [id number] lity Address [address] [facility] [address] [address] [facility] Address [address] [facility] [address] [place] [address] Care Team Providers Care Carding Supervisor Name Role Phone Baer Mannyangeliquejelly Araujo Unavailable [...] RESULTS BELOW CASE REPORTPat hology Report Case: [id number] ing Provider: Unknown, Doctor Collected :03/07/20 22 1115Order ing Location: [facility] Received: 2 2249Patho logist: Oscar [...] specimens .ADDITION AL INFORMATI ONInterpr eted at [facility] - [address], [facility] [place], [place] [address]Kucf Performed by:[facility] - [facility] [place], [place] [address]Xqmx e : FINAL Gabriel Vargas on Medications [...]
--- OUTSIDE RECORDS SUMMARY | 2024-07-21 12:15 | XMS_ITS | Clinical Summary ---
Author Organization [facility] Address [address] [place] [address] Care Team Providers Care Abstract Writer Name Role Phone Francesco Bonner MD [facility] Primary Care Provider Unav [...] Asked; Counseling Given: Not Answered Comments:06/05 PPD [id number] DT, SLAT BASKET MAKER HELPER 12/18/2022 Alcohol Use Standard Drinks/Week Comments Not [...] Vaccine Discontinued Medical Devices Implanted Type Area Lcsw Device Identifier Shelf Expiration Date Model / Serial / Lot Hydromark T3-01/28/2024 Implanted:Qty: 1 on 01/28/2024 by Amando Green MD Clip Left: Breast / / [id number] Procedures Procedure Name Priority Date/Time Associated Diagnosis Comments XR BONE DENSITY-SPINE & HIP Routine 07/05/2021 10:34 AM FILM NUMBERER Screening for osteoporosis Postmenopausal from Last 3 Months or Most Recently Relevant to Health Maintenance Results * XR (JAEL) BONE DENSITY-SPINE & HIP (07/05/2021 10:34 AM FILM NUMBERER) Anatomical Region Laterality Modality Extremity Computed Radiogr aphy 07/05/2021 10:3 5 AM FILM NUMBERER Impressions 07/05/2021 10:37 AM FILM NUMBERER IMPRESSION: Osteopenia. WHO Classification of bone density for post-menopausal women, and men over 50 years of age, is as follows: Normal bone density: T score greater than -1.0. Osteopenia (Low bone density): T score between -1.0 and -2.5. Osteoporosis: T score less than -2.5. REPORT SIGNED BY DR. Gordy Kim 07/05/2021 10:37 AM FILM NUMBERER EXAM: DEXA BONE DENSITY STUDY DATE: 07/05/2021 10:14 AM COMPARISON: None submitted. CLINICAL DATA: Osteoporosis screening. Post-menopausal. TECHNIQUE: A bone density evaluation using DEXA (dual energy x-ray absorptiometry) was performed for your patient at the [facility] in [place] using a [employer] (Discovery) unit. FINDINGS: Lumbar Spine (L1 and [...] was performed for your patient at the [facility] in [place] using a [employer] ([employer]covery) unit. FINDINGS: Lumbar Spine (L1 and [...] -2.5. REPORT SIGNED BY DR. Gordy Payne Anpu Evans MD XRAY ORDERABLE Final Result from Last 3 Months or Most Recently Relevant to Health Maintenance Insurance [facility] MEDICARE PART A & B [facility] MEDICARE PART A & B MEDICARE PART A & B [facility] Advance Directives For more information, please contact: [phone] * Full Code (Latest Code Status on File) Date Activated Date Inactivated Comments 05/01/2016 4:04 PM 05/11/2016 4:39 PM Question Answer Comments How was code status determined? Patient * Full Code Date Activated Date Inactivated Comments 08/08/2013 5:53 PM 08/09/2013 8:08 PM Question Answer Comments How was code status determined? Patient Care Teams Abstract Writer Relationship Specialty Start Date End Date Francesco Bonner MD PCP - General 03/04/24 Francesco Bonner MD 08/11/13
[2024-07-21 12:17] LABS: Basophils Absolute Auto 0.01 K/uL (0.00-0.30); Basophils Percent Auto 0.1 % (0.0-3.0); Eosinophils Absolute Auto 0.12 K/uL (0.00-0.50); Eosinophils Percent Auto 1.4 % (0.0-7.0); Hematocrit 43.7 % (33.0-51.0); Hemoglobin* 14.4 gm/dL (12.0-16.0); Lymphocytes Absolute Auto 2.18 K/uL (0.90-2.90); Mean Corpuscular HGB Conc 33 gm/dL (32-36); Mean Corpuscular Hemoglobin 31 pg (26-34); Mean Corpuscular Volume 95 fL (80-100); Monocytes Percent Auto 7.4 % (0.0-11.0); Neutrophils Absolute Auto 5.47 K/uL (1.7-7.0); Neutrophils Percent Auto 65.1 % (42.0-72.0); Platelet Count* 219 K/uL (140-440); RDW Coefficient of Variation % 12.3 % (11.5-15.5); Red Blood Count 4.62 m/uL (4.00-5.20)
[2024-07-21 12:21] LABS: Slide Review Reflex No
[2024-07-21 12:34] LABS: Albumin* 4.7 g/dL (3.3-5.0); Chloride* 98 mmol/L (96-114); Potassium* 4.1 mmol/L (3.6-5.1); Sodium* 138 mmol/L (135-149)
[2024-07-21 12:36] LABS: Anion Gap 10 mEq/L (7-15); Bilirubin Total* 1.7 mg/dL (0.1-1.5); Carbon Dioxide* 30 mmol/L (20-32); Creatinine* 0.8 mg/dL (0.5-1.5); Est. Creatinine Clearance* 33.12; Estimated Glomerular Filt Rate 73 ml/min
[2024-07-21 12:37] LABS: Alanine Aminotransferase* 24 U/L (4-35); Alkaline Phosphatase* 61 U/L (40-150); Aspartate Amino Transferase* 33 U/L (12-35); Blood Urea Nitrogen* 10 mg/dL (7-30); Calcium* 9.9 mg/dL (8.4-10.6); Glucose* 105 mg/dL (60-115); Lipase* 194 U/L (23-300); Total Protein* 7.6 g/dL (6.0-8.3)
[2024-07-21 13:09] VITALS: BP 96/69; PULSE 86; RESP 16; O2SAT 98
== END 2024-07-21 14:20 | disposition home or self-care (01) ==
PROVIDERS: Emergency Provider Emergency Medicine
DX: K57.32 Diverticulitis of large intestine without perforation or abscess without bleeding (principal); E80.7 Disorder of bilirubin metabolism, unspecified; R94.5 Abnormal results of liver function studies
CPT/HCPCS: 36415; 74177; 80053; 82565; 83690; 85025; 99284; Q9967

== ENCOUNTER 2024-08-23 09:12 | Emergency (ER) | payer MEDICARE, OTHER, SELFPAY ==
[2024-08-23 09:19] VITALS: BP 145/90; PULSE 66; RESP 18; TEMP 37.1; O2SAT 96; BMI 31.1
--- NOTE | 2024-08-23 09:39 | ED.GENADULT ---
HPI - General Adult General Date Seen: 08/23/24 Chief complaint: Dizziness/Vertigo Stated complaint: very dizzy, nausea Time Seen by Provider: 08/23/24 09:39 History of Present Illness HPI narrative: 84 yo F presenting to the ER today with dizziness and room spinning with nausea. Symptoms started this morning she woke. She has a history of previous cholecystectomy. She also has a history of dyslipidemia on rosuvastatin. I saw her about a month ago for abdominal pain and sigmoid diverticulitis. She is otherwise generally pretty healthy. No history of stroke or cardiovascular disease. She reports that she has been well lately and over the weekend. She does have some longstanding pain in her neck that makes it difficult for her to turn her head to left. Also for couple of on some mild discomfort in her left shoulder and upper arm. Those symptoms have not changed lately. She was well overnight and was able to get up to let her dog out and about 2 or 3:00 a.m. this morning. When she woke up this morning and tried to sit up in bed to get out of bed she had abrupt onset of spinning vertigo and dizziness with nausea. She had intense waves of dizziness and vertigo whenever she tried to sit up or walk. Her had to his sister to walk to the bathroom where she urinated. She was having intense waves of spinning but they get better when she holds still in lays down. No double vision. No nausea. No slurred speech. No focal numbness or weakness in her arms or legs. No confusion. She does not have any fall or head injury. She is not anticoagulated. In addition to her episodes of spinning vertigo she also does have a mild headache and some pain in the left side of her neck in the back. This is new for her or worse than normal but she does have some pre-existing chronic pain in her neck. Related Data Home Medications ?Medication ?Instructions ?Recorded ?Confirmed potassium chloride 20 mEq 20 meq PO DAILY 02/06/22 08/23/24 tablet,extended release(part/cryst) cholecalciferol (vitamin D3) 1 cap PO DAILY 02/01/23 08/23/24 rosuvastatin 20 mg PO HS 02/01/23 08/23/24 rosuvastatin 20 mg tablet (Crestor) 20 mg PO DAILY 07/21/24 08/23/24 triamterene 37.5 1 cap PO DAILY 07/21/24 08/23/24 mg-hydrochlorothiazide 25 mg capsule Previous Rx's ?Medication ?Instructions ?Recorded meclizine 25 mg tablet 25 mg PO TID PRN #15 tabs 08/23/24 ondansetron 4 mg disintegrating 4 mg PO Q8H PRN nausea and 08/23/24 tablet vomiting #10 tabs Allergies Allergy/AdvReac Type Severity Reaction Status Date / Time No Known Drug Allergies Allergy Verified 08/23/24 09:23 [facility] Social History Smoking Status: Current every day smoker What tobacco products do you use: cigarettes Smoking packs per day: 1 Smoking cigarettes per day: 20.0 Years smoked: 70 Smoking pack-years: 70.00 Do you use any of these nicotine containing products: None Second hand tobacco smoke exposure: No How often do you have a drink containing alcohol: never AUDIT-C Alcohol total score: 0 Non-prescribed substance use: denies use service: No Exam Narrative: Exam Narrative: Constitutional: Appears well-developed and well-nourished. Alert. Conversant and says she is symptom free while resting in bed. When I have the patient set up for exam simply with going from laying back to sitting up she has an intense wave of vertigo. When I have her hold still sitting up this vertigo does fatigue and resolve after about 30 seconds.. Non toxic. HENT: Head: Atraumatic. Nose: Nose normal. Mouth/Throat: Oral mucosa is clear and moist. no trismus. Pharynx normal. Tonsils symmetric. No tonsillar enlargement, erythema, or exudate. During away of a vertigo she does have nystagmus which appears to be horizontal. She is so intensely dizzy it is hard for her to keep her eyes open for good exam. Eyes: Conjunctivae normal. EOM normal. Pupils equal, round, and reactive to light. No scleral icterus. Neck: She has limited left lateral flexion which she says is due to chronic pain and stiffness in her neck. She is not able to fully flex and extend her neck and therefore I cannot perform Coalmont-Hallpike maneuver. Anterior Neck supple. No tracheal deviation present. Cardiovascular: Normal rate, regular rhythm. No gallop. No friction rub. No murmur heard. Symmetric radial artery pulses Pulmonary/Chest: Effort normal. No stridor. No respiratory distress. No wheezes. No rales. No rhonchi . No tenderness. Abdominal: Soft. Bowel sounds normal. No distension. No mass. No tenderness. No rebound. No guarding. Musculoskeletal: RUE: Normal range of motion. No tenderness. No deformity LUE: Normal range of motion. No tenderness. No deformity RLE: Normal range of motion. No edema. No tenderness. No deformity LLE: Normal range of motion. No edema. No tenderness. No deformity Neurological: Mental status normal. Attention normal. Alert and oriented x3. GCS 15. Memory normal. Speech fluent. Cognition normal. Cranial Nerves intact II-XII except I did not formally test gag or visual acuity. EOMI. Palate elevates symmetrically and tongue protrudes in the midline. Strength: 5/5 trapezius on the right and left 5/5 deltoid on the right and left 5/5 biceps on the right and left 5/5 triceps on the right and left 5/5 software product manager on the right and left 5/5 thumb opposition on the right and left 5/5 finger abduction on the right and left 5/5 hip flexors (L3) on the right and left 5/5 quadriceps (L4) on the right and left 5/5 tibialis anterior on the right and left 5/5 EHL (L5) on the right and left 5/5 gastrocnemius (S1) on the right and left 5/5 hamstring on the right and left Sensation intact to light touch in both upper extremities (C4-T1) Sensation intact to light touch in Both lower extremities (L4-S1). While resting in bed, as long as she keeps her head still Finger to nose and coordination normal. Gait not assessable because she is too vertiginous when she goes from laying back to sitting up. Skin: Skin is warm and dry. No rash noted. No pallor. Normal capillary refill. Psychiatric: Normal mood. Normal affect. Const: Vital Signs, click to edit/add: Vital Signs - 24 hr 08/23/24 09:19 Temperature 98.7 F Pulse Rate [Right Pulse Oximeter] 66 Respiratory Rate 18 Blood Pressure [Le ft Upper Arm] 145/90 H Pulse Oximetry 96 Oxygen Delivery Me thod Room Air Course Vital Signs Vital signs: Initial Vital Signs Temperature 98.7 F 08/23/24 09:19 Temperature Source Temporal Artery Scan 08/23/24 09:19 Pulse Rate 66 08/23/24 09:19 Pulse Rhythm Regular 08/23/24 09:19 Pulse Strength 3+ Normal 08/23/24 09:19 Respiratory Rate 18 08/23/24 09:19 Blood Pressure 145/90 H 08/23/24 09:19 Blood Pressure Mean 108 H 08/23/24 09:19 Blood Pressure Position Sitting 08/23/24 09:19 Pulse Oximetry 96 08/23/24 09:19 Oxygen Delivery Method Room Air 08/23/24 09:19 Vital Signs Temperature 98.7 F 08/23/24 09:19 Pulse Rate 66 08/23/24 09:19 Respiratory Rate 18 08/23/24 09:19 Blood Pressure 145/90 H 08/23/24 09:19 Pulse Oximetry 96 08/23/24 09:19 Oxygen Delivery Method Room Air 08/23/24 09:19 Temperature 98.7 F 08/23/24 09:19 Pulse Rate 66 08/23/24 09:19 Respiratory Rate 18 08/23/24 09:19 Blood Pressure 145/90 H 08/23/24 09:19 Pulse Oximetry 96 08/23/24 09:19 Oxygen Delivery Method Room Air 08/23/24 09:19 Medications Administered Medications: Discontinued Medications Generic Name Dose Route Start Last Admin Trade Name Freq PRN Reason Stop Dose Admin Meclizine HCl 25 mg 08/23/24 10:48 08/23/24 11:29 Meclizine Hcl 25 Mg Tablet PO 08/23/24 10:49 25 mg ONCE ONE Administration Medical Decision Making [facility] Narrative Medical decision making narrative: This patient presents for evaluation of dizziness c/w vertigo. The differential diagnosis of vertigo is broad and includes common etiologies such as menieres disease, labyrinthitis, benign positional vertigo, otitis media, etc. More serious etiologies considered include central etiologies such as tumor, intracerebral bleed, dissection, ischemic cerebral vascular accident. The history, physical exam including detailed neurologic exam, and workup in the emergency room suggests a benign cause of vertigo today. Symptoms are highly suggestive of BPPV because she is having brief episodes intense spinning vertigo and nausea that are triggered by change in position and movement and fatigable. No other acute focal deficits. However she also has superimposed neck pain which is chronic but worse lately and a headache which is new today. This raises concern for possible vertebral artery dissection. Given patient's age and medical comorbidities we did obtain head CT and CT angiogram as well as C-spine CT. 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 Also narrowing of the right subclavian artery. Discussed these findings with the patient and she is aware that she has chronically low blood pressure and her right arm when compared to left. At this point there is no sign of any acute limb ischemia affecting her right long-term so does not need immediate vascular surgery intervention but would recommend close outpatient follow-up with her primary for surveillance and further workup is needed. Incidentally says also a small thyroid nodule. Also recommend outpatient follow-up for that. Laboratory workup is reassuring. EKG does not show any sign of arrhythmia or ischemia or other non vertiginous cause of dizziness. Patient feels improved after interventions noted above. Further outpatient management is indicated with vertigo medications. Prescriptions for Zofran and meclizine provided. Return precautions reviewed. Questions answered. Lab Data Labs: Lab Results 08/23/24 Range/Units 10:10 WBC 5.65 (4.50-11.00) K/uL RBC 4.47 (4.00-5.20) m/uL Hgb 13.9 (12.0-16.0) gm/dL Hct 41.9 (33.0-51.0) % MCV 94 (80-100) fL MCH 31 (26-34) pg MCHC 33 (32-36) gm/dL RDW Coeff of Shira 12.6 (11.5-15.5) % Plt Count 215 (140-440) K/uL Neut % (Auto) 59.5 (42.0-72.0) % Lymph % (Auto) 29.6 (20-44) % Webster % (Auto) 7.3 (0.0-11.0) % Eos % (Auto) 3.2 (0.0-7.0) % Baso % (Auto) 0.2 (0.0-3.0) % Neut # (Auto) 3.37 (1.7-7.0) K/uL Lymph # (Auto) 1.67 (0.90-2.90) K/uL Webster # (Auto) 0.40 (0.00-0.90) K/UL Eos # (Auto) 0.18 (0.00-0.50) K/uL Baso # (Auto) 0.01 (0.00-0.30) K/uL Abs Immat Gran (auto) 0.01 (0.00-0.30) K/uL Imm/Tot Granulo (auto) 0.2 % Sodium 140 (135-149) mmol/L Potassium 3.6 (3.6-5.1) mmol/L Chloride 105 (96-114) mmol/L Carbon Dioxide 26 (20-32) mmol/L Anion Gap 9 (7-15) mEq/L BUN 19 (7-30) mg/dL Creatinine 0.9 (0.5-1.5) mg/dL Estimated Creat Clear 33.12 Estimated GFR 63 ml/min Glucose 101 (60-115) mg/dL Calcium 9.6 (8.4-10.6) mg/dL Troponin I < 0.01 (0.01-0.04) ng/mL Imaging Data CT scan - head: Attestation: I have reviewed the pertinent imaging results. Radiologist's impression: IMPRESSION: No acute intracranial process per unenhanced head CT. CT C spine: Attestation: I have reviewed the pertinent imaging results. Radiologist's impression: FINDINGS: Alignment: Straightening of the normal cervical lordosis. Vertebrae: Vertebral bodies and posterior elements are intact without acute fracture. Moderate degenerative changes of the visualized spine. Extra-vertebral soft tissues: Normal. Visualized brain: Normal. Additional comment: 0.6 centimeter hypoattenuating right thyroid nodule (3/). No further imaging is recommended for incidental thyroid nodules measuring < 1.5 cm in an adult patient <= 35 years of age. Adapted from Consensus Recommendations, J Am Dian Radiol 2015;12:143???150. IMPRESSION: No acute displaced fracture or malalignment of the cervical spine. CTA head adn neck: Attestation: I have reviewed the pertinent imaging results. Radiologist's impression: prelimary Impression: 1. No definite occlusion or aneurysm in the intracranial and extracranial circulations. 2. Dominant left vertebral artery; mild narrowing of the origin of the left vertebral artery. Diminutive right vertebral artery appears to terminate as the right posterior inferior cerebellar artery; this is favored to be chronic, though the distal portion is not well opacified and superimposed occlusion or severe narrowing is difficult to exclude. 3. Moderate to severe narrowing at the origin of the right subclavian artery. Dictated by Kt Morrell MD @ 08/23/2024 11:46:44 AM ECG Data Attestation: I personally reviewed and interpreted this ECG as follows: Interpretation: Normal sinus rhythm Rate: 63 NJ: To 0 6 QRS axis: Normal axis. No pathologic Q-waves. ST segment/T wave: No ST segment elevation or depression. QTc: 425 Discharge Plan Discharge Clinical Impression: Vertigo, Thyroid nodule, Stenosis of subclavian artery Patient Disposition: Home, Self-Care Condition: Stable Instructions: Vertigo (DC) Additional Instructions: As we discussed, please call your doctor's office today to arrange an outpatient follow-up visit within the next 1-2 weeks to recheck your vertigo. Also have your doctor review your imaging studies from today's visit. They may need to arrange annual or biannual surveillance of your narrow subclavian artery and further testing for your thyroid nodule. In the meantime use the Antivert and Zofran if needed for symptoms. Return to the ER right away if you have worsening or changing symptoms such as severe vertigo, inability to walk, severe headache, uncontrolled vomiting, numbness or weakness in 1 side of your body, slurred speech, double vision, or other problems. Prescriptions: New meclizine 25 mg tablet 25 mg PO TID PRNQty: 15 0RF ondansetron 4 mg tablet,disintegrating 4 mg PO Q8H PRN (Reason: nausea and vomiting) Qty: 10 0RF No Action triamterene-hydrochlorothiazid 37.5-25 mg capsule 1 cap PO DAILY rosuvastatin [Crestor] 20 mg tablet 20 mg PO DAILY potassium chloride 20 mEq tablet,ER particles/crystals 20 meq PO DAILY Patient Comments: TAKE ONE TABLET BY MOUTH EVERY DAY rosuvastatin 20 mg PO HS cholecalciferol (vitamin D3) 1 cap PO DAILY Follow Up/Referrals: Provider,Not a Local [Primary Care Provider] - Stand Alone Forms: [employer] Info Instructions
--- NOTE | 2024-08-23 10:02 | CRLHL7_ITS ---
For Patients: As a result of the Century Cures Act, medical imaging exams and procedure reports are released immediately into your electronic medical record. You may view this report before your referring provider. If you have questions, please contact your health care provider. INDICATION: .NECK PAIN, VERTIGO, HEADACHE TECHNIQUE: Head CT without contrast. COMPARISON: None. FINDINGS: Periventricular areas of low attenuation, likely due to chronic small vessel ischemic changes. Generalized volume loss. Atherosclerosis. No intracranial hemorrhage. No discrete mass or mass effect. There is no midline shift. The basilar cisterns are patent. No hydrocephalus. The medellin-white matter interface is otherwise preserved. No acute osseous abnormality. No extracalvarial soft tissue abnormality. The mastoid air cells are clear. The paranasal sinuses are well-aerated. The visualized portions of the orbits and globes are unremarkable. IMPRESSION: No acute intracranial process per unenhanced head CT. Please note that all CT scans at this facility use dose modulation, iterative reconstruction, and/or weight-based dosing when appropriate to reduce radiation dose to as low as reasonably achievable. Dictated by Oscar May MD @ 08/23/2024 11:26:42 AM (Electronically Signed)
--- NOTE | 2024-08-23 10:03 | CRLHL7_ITS ---
For Patients: As a result of the Century Cures Act, medical imaging exams and procedure reports are released immediately into your electronic medical record. You may view this report before your referring provider. If you have questions, please contact your health care provider. INDICATION: NECK PAIN, VERTIGO, HEADACHE. TECHNIQUE: CT of the cervical spine was performed without intravenous contrast. COMPARISON: None. FINDINGS: Alignment: Straightening of the normal cervical lordosis. Vertebrae: Vertebral bodies and posterior elements are intact without acute fracture. Moderate degenerative changes of the visualized spine. Extra-vertebral soft tissues: Normal. Visualized brain: Normal. Additional comment: 0.6 centimeter hypoattenuating right thyroid nodule (). No further imaging is recommended for incidental thyroid nodules measuring < 1.5 cm in an adult patient <= 35 years of age. Adapted from Consensus Recommendations, J Am Dian Radiol 2015;12:143???150. IMPRESSION: No acute displaced fracture or malalignment of the cervical spine. Please note that all CT scans at this facility use dose modulation, iterative reconstruction, and/or weight-based dosing when appropriate to reduce radiation dose to as low as reasonably achievable. Dictated by Kt Morrell MD @ 08/23/2024 11:32:05 AM (Electronically Signed)
--- NOTE | 2024-08-23 10:03 | CRLHL7_ITS ---
For Patients: As a result of the Century Cures Act, medical imaging exams and procedure reports are released immediately into your electronic medical record. You may view this report before your referring provider. If you have questions, please contact your health care provider. CLINICAL HISTORY: Neck pain and vertigo; headache. TECHNIQUE: Standard helical CT image acquisition through the head following the administration of intravenous contrast was performed. 3D and MIP reconstructions were performed at a separate workstation and permanently archived. COMPARISON: None available. FINDINGS: There is no opacification of the markedly hypoplastic intracranial right vertebral artery. There is otherwise no intracranial proximal large vessel occlusion or flow-limiting luminal stenosis. No evidence of cerebral aneurysm. No findings to suggest an arterial-venous shunting lesion. The major dural venous sinuses and deep venous system are patent. IMPRESSION: 1. No opacification of the markedly hypoplastic intracranial right vertebral artery. This is favored to be due to the small caliber of the vessel and less likely secondary to a true occlusion. Correlate for clinical symptoms. 2. Otherwise, no intracranial proximal large vessel occlusion, flow-limiting luminal stenosis, or cerebral aneurysm. Please note that all CT scans at this facility use dose modulation, iterative reconstruction, and/or weight-based dosing when appropriate to reduce radiation dose to as low as reasonably achievable. Dictated by Myron Schultz MD @ 08/23/2024 3:32:13 PM (Electronically Signed)
--- NOTE | 2024-08-23 10:03 | CRLHL7_ITS ---
For Patients: As a result of the Century Cures Act, medical imaging exams and procedure reports are released immediately into your electronic medical record. You may view this report before your referring provider. If you have questions, please contact your health care provider. CLINICAL HISTORY: Neck pain and vertigo; headache. TECHNIQUE: Standard helical CT image acquisition through the neck was performed after intravenous contrast bolus enhancement. 3D and MIP reconstructions were performed at a separate workstation and permanently archived. COMPARISON: None available. FINDINGS: The origins of the great vessels from the aortic arch are patent. 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 The common carotid arteries are patent. No significant stenoses of the proximal ICAs. The more distal cervical ICAs are patent. Mild stenosis at the origin of the dominant left vertebral artery. The origin of the hypoplastic right vertebral artery is patent. The cervical segments of the vertebral arteries are patent. IMPRESSION: 1. Mild stenosis at the origin of the dominant left vertebral artery. 2. 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 Please note that all CT scans at this facility use dose modulation, iterative reconstruction, and/or weight-based dosing when appropriate to reduce radiation dose to as low as reasonably achievable. Dictated by Myron Schultz MD @ 08/23/2024 3:28:17 PM (Electronically Signed)
[2024-08-23 10:26] LABS: Basophils Absolute Auto 0.01 K/uL (0.00-0.30); Basophils Percent Auto 0.2 % (0.0-3.0); Eosinophils Absolute Auto 0.18 K/uL (0.00-0.50); Eosinophils Percent Auto 3.2 % (0.0-7.0); Hematocrit 41.9 % (33.0-51.0); Hemoglobin* 13.9 gm/dL (12.0-16.0); Immature Granulocytes Abs Auto 0.01 K/uL (0.00-0.30); Immature Granulocytes Pct Auto 0.2 %; Lymphocytes Absolute Auto 1.67 K/uL (0.90-2.90); Lymphocytes Percent Auto 29.6 % (20-44); Mean Corpuscular HGB Conc 33 gm/dL (32-36); Mean Corpuscular Hemoglobin 31 pg (26-34); Mean Corpuscular Volume 94 fL (80-100); Monocytes Percent Auto 7.3 % (0.0-11.0); Neutrophils Absolute Auto 3.37 K/uL (1.7-7.0); Neutrophils Percent Auto 59.5 % (42.0-72.0); Platelet Count* 215 K/uL (140-440); RDW Coefficient of Variation % 12.6 % (11.5-15.5); Red Blood Count 4.47 m/uL (4.00-5.20); White Blood Count* 5.65 K/uL (4.50-11.00)
[2024-08-23 10:30] LABS: Slide Review Reflex No
[2024-08-23 10:43] LABS: Chloride* 105 mmol/L (96-114)
[2024-08-23 10:44] LABS: Potassium* 3.6 mmol/L (3.6-5.1); Sodium* 140 mmol/L (135-149)
[2024-08-23 10:47] LABS: Anion Gap 9 mEq/L (7-15); Blood Urea Nitrogen* 19 mg/dL (7-30); Calcium* 9.6 mg/dL (8.4-10.6); Carbon Dioxide* 26 mmol/L (20-32); Creatinine* 0.9 mg/dL (0.5-1.5); Est. Creatinine Clearance* 33.12; Estimated Glomerular Filt Rate 63 ml/min; Glucose* 101 mg/dL (60-115)
[2024-08-23] MEDS: MECLIZINE HCL 25 MG TABLET PO (11:29)
[2024-08-23 12:12] LABS: Troponin I* < 0.01 ng/mL (0.01-0.04)
[2024-08-23 12:46] VITALS: BP 146/77; PULSE 76; RESP 16; O2SAT 98
== END 2024-08-23 12:47 | disposition home or self-care (01) ==
PROVIDERS: Emergency Provider Emergency Medicine
DX: R42 Dizziness and giddiness (principal); E04.1 Nontoxic single thyroid nodule; I77.1 Stricture of artery
CPT/HCPCS: 36415; 70450; 70496; 70498; 72125; 80048; 84484; 85025; 93005; 96374; 99284; 99285; A9270; Q9967

== ENCOUNTER 2024-09-02 19:44 | Emergency (ER) | payer MEDICARE, OTHER, SELFPAY ==
--- OUTSIDE RECORDS SUMMARY | 2024-09-02 19:47 | XMS_ITS ---
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) Referral Organization [facility] Rebeca [facility] Referring Provider First Name Floresita Referring Provider Last Name Candice darby Referring Provider Speciality General [facility] Referred Provider Specialty Medical Onco logy General Notes Carolyn Kenney 04/06 09:40:11 AM >Please call patient and schedule with Pablito Dawson Brenna 04/06/2024 09:42:01 AM >Faxed to Pablito Dawson Brenna 06/10/2024 02:38:05 PM > [place] [facility] has reached out to pt 2x pt not scheduled, Carolyn Kenney 08/06/2024 11:01:33 AM >has pt been seen by [place] [facility], TEREZA BUSH 08/20/2024 11:11:16 AM >REQUESTED Referral Priority Urgent Reason 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 Diagnosis 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) Referral Organization [facility] Referring Provider First Name Floresita Referring Provider Last Name Candice darby Referring Provider Speciality General Avelina friedman Referred Provider Specialty Radiation On cology General Notes Carolyn Kenney 04/06 09:42:18 AM >Please call patient and schedule with Pablito Dawson Brenna 04/06/2024 09:42:51 AM >Faxed to Pablito Dawson Brenna 06/10/2024 02:36:28 PM > [place] [facility] [place] reached out to pt 2x pt not scheduled, Carolyn Kenney 08/06/2024 11:00:30 AM >pt Declied Rad Onc Consult Referral Priority Routine REASON FOR VISIT +po [...] Orally Once a day Active Vital Signs Temperature 98.0 degrees Fahrenheit 03/30/20 24 Blood pressure systolic 120 mm Hg 03/30/20 24 Blood pressure diastolic 70 mm Hg 024 Heart Rate 85 /min 03/30/2024 Respiratory Rate 14 /min 03/30/2024 Height 62 in 03/30/2024 Weight 163.2 lbs 03/30/2024 BMI 29.85 kg/m2 03/30/2024 Height-cm 157.48 cm 03/30/2024 Weight-kg 74.03 kg 03/30/2024 Encounters Encounter Location Date Provider Diagnosis [facility] [address] [place] [address] 03/30/2024 Floresita Mcfarland Aftercare following surgery Z48.89 [...] Up: 6 Months, Reason: Progress Notes * REAGANMARGARITAE EDOB:1939 (83 yo F)Acc No.[id number]:03/30/2024 Progress Note Patient: ALEX CHANDLER Provider: Teddy Mcfarland MD :1940 A ge:83 Y S ex:Female Date:03/30/2024 Address:[address] [place], [place] [id number] Subjective: * Chief Complaints: * + po [...] * Follow Up: 6 Months * * E OPERATOR Sign off status: Completed true * Provider: Teddy Mcfarland MD Date: Generated for Pradip saunders/Dalila/Wilder on: 0 09/02/2024 07:47 PM CDT History and Physical Notes * HPI (History [...]
--- OUTSIDE RECORDS SUMMARY | 2024-09-02 19:47 | XMS_ITS | Clinical Summary ---
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 12/18/2022 Alcohol Use Standard Drinks/Week Comments [...] Vaccine Discontinued Medical Devices Implanted Type Area Bowling Floor Manager Device Identifier Shelf Expiration Date Model / Serial / Lot Hydromark T3-01/28/2024 Implanted:Qty: 1 on 01/28/2024 by Amando Green MD Clip Left: Breast / / [id number] Procedures Procedure Name Priority Date/Time Associated Diagnosis Comments XR BONE DENSITY-SPINE & HIP Routine 07/05/2021 10:34 AM CANCER PROGRAM DIRECTOR Screening for osteoporosis Postmenopausal from Last 3 Months or Most Recently Relevant to Health Maintenance Results * XR (JAEL) BONE DENSITY-SPINE & HIP (07/05/2021 10:34 AM CANCER PROGRAM DIRECTOR) Anatomical Region Laterality Modality Extremity Computed Radiogr aphy 07/05/2021 10:3 5 AM CANCER PROGRAM DIRECTOR Impressions 07/05/2021 10:37 AM CANCER PROGRAM DIRECTOR IMPRESSION: Osteopenia. WHO Classification of bone density for post-menopausal women, and men over 50 years of age, is as follows: Normal bone density: T score greater than -1.0. Osteopenia (Low bone density): T score between -1.0 and -2.5. Osteoporosis: T score less than -2.5. REPORT SIGNED BY DR. Gordy Kim 07/05/2021 10:37 AM CANCER PROGRAM DIRECTOR EXAM: DEXA BONE DENSITY STUDY DATE: 07/05/2021 10:14 AM COMPARISON: None submitted. CLINICAL DATA: Osteoporosis screening. Post-menopausal. TECHNIQUE: A bone density evaluation using DEXA (dual energy x-ray absorptiometry) was performed for your patient at the [facility] in [place] using a Hol[employer]ell[employer] (Discovery) unit. FINDINGS: Lumbar Spine (L1 and [...] was performed for your patient at the [facility] in [place] using a HoloSellStage (Discovery) unit. FINDINGS: Lumbar Spine (L1 and [...] Most Recently Relevant to Health Maintenance Insurance [facility] MEDICARE PART A & B [facility] MEDICARE PART A & B MEDICARE PART A & B [facility] Advance Directives For more information, please contact: [phone] * Full Code (Latest Code Status on File) Date Activated Date Inactivated Comments 05/01/2016 4:04 PM 05/11/2016 4:39 PM Question Answer Comments How was code status determined? Patient * Full Code Date Activated Date Inactivated Comments 08/08/2013 5:53 PM 08/09/2013 8:08 PM Question Answer Comments How was code status determined? Patient Care Teams Membership Solicitor Relationship Specialty Start Date End Date Francesco Bonner MD PCP - General 03/04/24 Francesco Bonner MD 08/11/13
--- OUTSIDE RECORDS SUMMARY | 2024-09-02 19:47 | XMS_ITS | CCD ---
Author Name Interface, [id number] lity Address [address] [place] [address] [facility] Oncology Address [facility] [address] [address] Reason for Visit Encounters Medications Problems Social History
--- OUTSIDE RECORDS SUMMARY | 2024-09-02 19:47 | XMS_ITS ---
Author Name Interface, [id number] lity Address [address] [facility] [address] [address] [facility] Oncology Address [address] [facility] [address] [place] [address] Care Team Providers Care Order Packer Or Packager Name Role Phone Baer Mannyangeliquejelly Araujo Unavailable [...] RESULTS BELOW CASE REPORTPat hology Report Case: [id number] ing Provider: Unknown, Doctor Collected :03/07/20 22 1115Order ing Location: [facility] Received: 2 2249Patho logist: Oscar [...] specimens .ADDITION AL INFORMATI ONInterpr eted at [facility] - [address], [facility] [place], [place] [address]Wwxi Performed by:[facility] - [facility] [place], [place] [address]Jpmw e [phone] FINAL Gabriel Vargas on Medications Date Name [...]
--- OUTSIDE RECORDS SUMMARY | 2024-09-02 19:47 | XMS_ITS ---
Author Organization [facility] Address [address] [place] [address] Care Team Providers Care Supervisor Boat Outfitting Name Role Phone Melchor Leon Primary Care Provider REASON FOR VISIT Current Patient Visit Encounters Encounter Location Date Provider Diagnosis [facility] [address] [place] [address] [place] [address] 08/26/2024 Melchor Leon Plan Of Treatment No Information Progress Notes * Ana KIRKOB:[birth year] (84 yo F)Acc No.[id number]:08/26/2024 Progress Notes Patient: Jennifer CHANDLER Provider: José Luis Leon MD :1940 A ge:84 Y S ex:Female Date:08/26/2024 Address:[id number] Subjective: * Chief Complaints: * 1 . Current Patient Visit. * Medical History: Objective: * Vitals: Assessment: Plan: * Treatment: * * The named appointment provid er may or may not be the originator of this progress note, and it is not deemed complete until electronically signed by the appointment provider. Sign off status: Pending * Provider: José Luis Leon MD Date: 0 08/26/2024 Generated for Sarkisi chip/Dalila/eTransmitting on: 0 09/02/2024 07:47 PM CDT
--- OUTSIDE RECORDS SUMMARY | 2024-09-02 19:47 | XMS_ITS ---
Author Organization [facility] Rebeca Bill [address] [place] [address] Care Team Providers Care Software Test Analyst Name Role Phone BLANCA JEROME, SONG Unavailable Unavailable Floresita Santana REASON FOR VISIT RADIATION REFERRAL Encounters Encounter Location Date Provider Diagnosis [facility] Bill [address] [place] [address] 04/28/2024 Floresita Mcfarland Plan Of Treatment No Information Progress Notes * ALEX KIRK EDOB:1939 (84 yo F)Acc No.[id number]:04/28/2024 Patient: Corinna ISAÍASMARGARITACarlos Gonzalez :1940 A ge:84 Y S ex:Female Address:[address] [place], [place] [address] [address] * true * Date: Generated for Sarkisi chip/Dalila/eTransmitting on: 0 09/02/2024 07:47 PM CDT
--- OUTSIDE RECORDS SUMMARY | 2024-09-02 19:47 | XMS_ITS ---
Author Organization [facility] Bill [address] [place] [address] Care Team Providers Care Cistern Room Working Supervisor Name Role Phone SONG RIOS MD Unavailable Unavailable Floresita Santana [phone] REASON FOR VISIT SCHEDULE F/U Encounters Encounter Location Date Provider Diagnosis [facility] [address] [place] [address] 08/30/2024 Floresita Mcfarland Plan Of Treatment No Information Progress Notes * ALEX KIRK EDOB:1939 (84 yo F)Acc No.[id number]:08/30/2024 Patient: Corinna ALEX METZ :1940 A ge:84 Y S ex:Female Address:[address] [place] [address] * * Date:
--- OUTSIDE RECORDS SUMMARY | 2024-09-02 19:47 | XMS_ITS ---
Author Name Interface, [id number] lity Address [address] [facility] [address] [address] [facility] Oncology Address [address] [facility] [address] [place] [address] Care Team Providers Care Parts Assembler Name Role Phone Baer Mannyangeliquejelly Araujo Unavailable [...] RESULTS BELOW CASE REPORTPat hology Report Case: [id number] ing Provider: Unknown, Doctor Collected :03/07/20 22 1115Order ing Location: [facility] Received: 2 2249Patho logist: Oscar [...] specimens .ADDITION AL INFORMATI ONInterpr eted at [facility], [facility] - [address], [facility] [place] [address]Bfvm Performed by:[facility] - [facility] [place], [place] [address]Fbrb e [phone] FINAL Gabriel Vargas on Medications Date Name [...]
--- OUTSIDE RECORDS SUMMARY | 2024-09-02 19:48 | XMS_ITS | Referral Summary ---
Author Organization [facility] Address [address] [place] [address] Care Team Providers Care Staff Interpreter Name Role Phone Francesco Bonner MD, Nathan H. 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 12/18/2022 Alcohol Use Standard Drinks/Week Comments Not [...] on file Medical Devices Implanted Type Area Licensed Optician Device Identifier Shelf Expiration Date Model / Serial / Lot Hydromark T3-01/28/2024 Implanted:Qty: 1 on 01/28/2024 by Amando Green MD Clip Left: Breast / / [id number] Procedures Procedure Name Priority Date/Time Associated Diagnosis Comments XR BONE DENSITY-SPINE & HIP Routine 07/05/2021 10:34 AM TRANSPORTATION MODELER Screening for osteoporosis Postmenopausal from Last 3 Months or Most Recently Relevant to Health Maintenance Results * XR (MDIP) BONE DENSITY-SPINE & HIP (07/05/2021 10:34 AM TRANSPORTATION MODELER) Anatomical Region Laterality Modality Extremity Computed Radiogr aphy 07/05/2021 10:3 5 AM TRANSPORTATION MODELER Impressions 07/05/2021 10:37 AM TRANSPORTATION MODELER IMPRESSION: Osteopenia. WHO Classification of bone density for post-menopausal women, and men over 50 years of age, is as follows: Normal bone density: T score greater than -1.0. Osteopenia (Low bone density): T score between -1.0 and -2.5. Osteoporosis: T score less than -2.5. REPORT SIGNED BY DR. Gordy Payne Narrative 07/05/2021 10:37 AM TRANSPORTATION MODELER EXAM: DEXA BONE DENSITY STUDY DATE: 07/05/2021 10:14 AM COMPARISON: None submitted. CLINICAL DATA: Osteoporosis screening. Post-menopausal. TECHNIQUE: A bone density evaluation using DEXA (dual energy x-ray absorptiometry) was performed for your patient at the [facility] in [place] using a Holo[employer] (Discovery) unit. FINDINGS: Lumbar Spine (L1 and [...] was performed for your patient at the [facility] in [place] using a Hologic (Discovery) unit. FINDINGS: Lumbar [...] Most Recently Relevant to Health Maintenance Insurance [facility] MEDICARE PART A & B [facility] MEDICARE PART A & [place] [address] MEDICARE PART A & B [facility] Advance Directives For more information, please contact: [phone] * Full Code (Latest Code Status on File) Date Activated Date Inactivated Comments 05/01/2016 4:04 PM 05/11/2016 4:39 PM Question Answer Comments How was code status determined? Patient * Full Code Date Activated Date Inactivated Comments 08/08/2013 5:53 PM 08/09/2013 8:08 PM Question Answer Comments How was code status determined? Patient Care Teams Staff Interpreter Relationship Specialty Start Date End Date Francesco Bonner MD PCP - General 03/04/24 Francesco Bonner MD 08/11/13
--- OUTSIDE RECORDS SUMMARY | 2024-09-02 19:48 | XMS_ITS ---
Author Organization [facility] Address [address] [place] [address] Care Team Providers Care Vp Site Name Role Phone Melchor Leon Primary Care Provider REASON FOR VISIT -vertigo - pt out of medications Medications Medication SIG (Take, Route, Fr equency, Duration) Notes Start Date End Date Status Meclizine HCl 25 MG TAKE 1 TABLET BY ANNA TH THREE TIMES DAILY NEEDED Oral Activ e Ondansetron 4 MG 1 tablet on the tong ue and allow to dissolve Orally Twice a day as needed 07/21/2024 Active Encounters Encounter Location Date Provider Diagnosis [address] [facility] [place] [address] 08/27/2024 Melchor Leon Plan Of Treatment Medication Medication Name Sig Start Date Stop Date Notes Meclizine HCl 25 MG TAKE 1 TABLET BY ANNA TH THREE TIMES DAILY NEEDED Oral Ondansetron 4 MG 1 tablet on the tong ue and allow to dissolve Orally Twice a day as needed 07/21/2024 Progress Notes * Ana KIRKOB:[birth year] (84 yo F)Acc No.[id number]:08/27/2024 Patient: Jennifer CHANDLER :1940 A ge:84 Y S ex:Female Address:[facility] [place], [address] * Refills Refill Ondansetron Tablet Disintegrating, 4 MG, Orally, 15, 1 tablet on the tongue and allow to dissolve, Twice a day as needed, Refills=0 Refill Meclizine HCl Tablet, 25 MG, Oral, 15, TAKE 1 TABLET BY MOUTH THREE TIMES DAILY NEEDED, Refills=1 * true * Date: Generated for Pradip saunders/Dalila/Wilder on: 0 09/02/2024 07:48 PM CDT
--- OUTSIDE RECORDS SUMMARY | 2024-09-02 19:48 | XMS_ITS ---
Author Organization [facility] Address [address] [place] [address] Care Team Providers Care Cigarette Examiner Name Role Phone Melchor Leon Primary Care Provider REASON FOR VISIT Current Patient Visit Encounters Encounter Location Date Provider Diagnosis [facility] [address] [place] [address] 08/31/2024 Melchor Leno Plan Of Treatment No Information Progress Notes * Ana KIRKOB:[birth year] (84 yo F)Acc No.[id number]:08/31/2024 Progress Notes Patient: Jennifer CHANDLER Provider: José Luis Leon MD :1940 A ge:84 Y S ex:Female Date:08/31/2024 Address:[place] Subjective: * Chief Complaints: * 1 . Current Patient Visit. * Medical History: Objective: * Vitals: Assessment: Plan: * Treatment: * * The named appointment provid er may or may not be the originator of this progress note, and it is not deemed complete until electronically signed by the appointment provider. Sign off status: Pending * Provider: José Luis Leon MD Date: 08/31/2024 Generated for Pradip saunders/Dalila/eTjovitasmitting on: 09/02/2024 07:48 PM CDT
--- OUTSIDE RECORDS SUMMARY | 2024-09-02 19:48 | XMS_ITS | Encounter Summary ---
Author Organization [facility] Address [address] [place] [address] Care Team Providers Care Senior Portfolio Analyst Name Role Phone Francesco Bonner MD Unavailable [facility] Anup Gómez MD Primary Care Provider [phone] [facility] Francesco Bonner MD Primary Care Provider Unav ailable Reason for Visit * Reason Onset Date Comments Other 11/19/2021 Return call Chest tightness 11/19/2021 Encounter Details Date Type Department Care Team (Late st Contact Info) Description 11/19/2021 Nurse Triage [facility] Internal Medicine [address] [address] Anup Evans MD [address] [place] [address] [place] [address] Social History Tobacco Use Types [...] last Friday last 20 minutes- none since [facility] see mD [id number] brian rs Oscar Romero RN Care hand ii tube bender Reason for Disposition [1] Chest pain lasts [...] nurse as requested. Please call her at [phone]. Seeother messages. Nandini Barkley [facility] Care Access Department documented in this encounter Plan of Treatment Not on file documented as of this encounter Visit Diagnoses Not on filedocumented in this encounter Care Teams Senior Portfolio Analyst Relationship Specialty Start Date End Date Anup Evans MD [address] [place] [address] Dr Pérez [facility] [place] [address] PCP - General Internal Medicine 02/23/16 03/04/[address] PÉREZ [address] [place] [address] PCP - Primary Care Clinic 02/23/16 06/12/23 Francesco Bonner MD PCP - General 03/04/24 Francesco Bonner MD 08/11/13 documented as of this encounter
--- OUTSIDE RECORDS SUMMARY | 2024-09-02 19:48 | XMS_ITS | CCD ---
Author Name Interface, K4Foftmbr lity Address [address] [place] [address] [facility] Oncology Address [facility] [address] [address] Reason for Visit Encounters Medications Problems Social History
--- OUTSIDE RECORDS SUMMARY | 2024-09-02 19:48 | XMS_ITS | Data Portability ---
Author Organization [facility] Address [address] [place] [address] Care Team Providers Care Certified Prosthetist Vice President Name Role Phone YULI WATKINS Primary Care Provider [phone] Assessment Encounter Date Assessment Date Assessment LastModified [...] meantime with any further questions or concerns. [id number] Not available 05/23/2016 15:02:02 Plan of [...] Code Diagnosis ICD10 Code Diagnosis Note 7949 [facility] [address] [place] [address] 04/04/2016 17:49:06 04/04/2016 17:49:[address] [facility] - () [address] [place] [address] 2016 08:40:49 04/24/2016 09:20:[address] [facility] - () [address] [facility] [place] [address] 05/16/2016 10:33:35 05/16/2016 10:34:01 9094 [facility] [address] [place] [address] 05/23/2016 14:11:54 05/24/2016 08:55:11 Health Concerns Section Related Observation LastModified by Organization Detai ls LastModified Time None Recorded Concern Status LastModified by Organization Details LastModified Time None Recorded Advance Directives Directive None Recorded Payers Encounter Date Sequence Insurance Name Policy Number Policy Singer Covered Member ID Singer Member ID Guarantor Name 04/04/2016 1 [place] [employer] Jennifer E Chalstrom [id number] Jennifer E Kelsey 04/04/2016 2 () Jennifer E Chalstrom [id number] Jennifer E Kelsey 04/22/2016 1 [place] [employer] Jennifer E Chalstrom [id number] Jennifer E Chalstrom 04/22/2016 2 () Jennifer E Chalstrom [id number] Jennifer E Chalstrom 05/09/2016 1 [place] [employer] Jennifer E Chalstrom [id number] Jennifer E Chalstrom 05/09/2016 2 () Jennifer E Chalstrom [id number] Jennifer E Chalstrom 05/23/2016 1 [facility] [employer] Jennifer E Chalstrom [id number] Jennifer Cole 05/23/2016 2 () Jennifer Cole [id number] Jennifer Cole Notes Date Note Type Note [...] drainage from her incision. [place] [facility] - [facility] 05/24/2016 10:10:26 OBGyn Episode No OBEpisode recorded.
--- OUTSIDE RECORDS SUMMARY | 2024-09-02 19:48 | XMS_ITS | Clinical Summary ---
Author Organization [facility] Address [facility] [place] [address] Care Team Providers Care Lodging Manager Name Role Phone Anup Evans MD Primary Care Provider [phone] Allergies Active Allergy Reactions Criticality Noted Date [...] (difficult visualization). 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 Gender Identity Not on file Sexual Orientation [...] COVID-19 vaccine series ( season) 2024 Influenza Vaccine (#1) 2024 Medical Devices Implanted Type Area Behavioral Intervention Specialist Device Identifier Shelf Expiration Date Model / Serial / Lot Cmnt Bone 40g Simplex P Non Atb Mv - [id number] Implanted:Qty: 1 on 01/14/2022 by Moises Souza MD at [facility] Right: Knee [employer] 05/01/2024 6191-1-010 / / [id number] Cmnt Bone 40g Simplex P Non Atb Mv - [id number] Implanted:Qty: 1 on 01/14/2022 by Moises Souza MD at [facility] Right: Knee [employer] 05/01/2024 6191-1-010 / / [id number] Triathlon Primary Tibial Baseplate Implanted:Qty: 1 on 01/14/2022 by Moises Souza MD at [facility] Right: Knee [employer] 10/15/2026 5520-B-400 / / [id number] Triathlon Cruciate Retaining Femoral Implanted:Qty: 1 on 01/14/2022 by Moises Souza MD at [facility] Right: Knee [employer] 11/12/2025 5510-F-402 / / [id number] Implnt Patellar [id number] Knee X3 Asymmetric Triathlon - [id number] Implanted:Qty: 1 on 01/14/2022 by Moises Souza MD at [facility] Right: Knee [employer] 08/19/2026 5551-G-320 -E / / [id number] Cmnt Bone 40g Simplex P Non Atb Mv - [id number] Implanted:Qty: 1 on 01/14/2022 by Moises Souza MD at [facility] Right: Knee [employer] 05/01/2024 6191-1-010 / / [id number] Triathlon X3 Tibial Bearing Insert - [id number] Implanted:Qty: 1 on 01/14/2022 by Moises Souza MD at [facility] Right: Knee [employer] 10/02/2026 5531-G-410 -E / / [id number] Triathlon Cruciate Retaining Femoral Implanted:Qty: 1 on 01/13/2023 by Moises Souza MD at [facility] Left: Knee 11/07/2027 5510-F-401 / / [id number] Description:Triathlon Crucia te Retaining Femoral- Kim #4, Contract Manager Lft, Typ CR Insert Tib Sz 4 10mm Knee X3 Condylar Stabilizing Triathlon - [id number] Implanted:Qty: 1 on 01/13/2023 by Moises Souza MD at [facility] Left: Knee [employer] 11/07/2027 5531-G-410 -E / / [id number] Cmnt Bone 40g Simplex P Non Atb Mv - [id number] Implanted:Qty: 2 on 01/13/2023 by Moises Souza MD at [facility] Left: Knee [employer] 04/01/2025 6191-1-010 / / [id number] Primary Tibial Baseplate Implanted:Qty: 1 on 01/13/2023 by Moises Souza MD at [facility] Left: Knee [employer] 11/25/2027 520-B-400 / / [id number] Description:Triathlon Primar y Tibial Baseplate Kim #4 [place] [address] [place] [address] MEDICARE PART A HB ONLY MEDICARE PART [...] 8:20 AM 04/22/2016 12:04 PM Care Teams Lodging Manager Relationship Specialty Start Date End Date Anup Evans MD PCP - General Internal Medicine 01/29/23
--- OUTSIDE RECORDS SUMMARY | 2024-09-02 19:48 | XMS_ITS | Patient Health Record ---
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 Noted:, TEXT [phone], first Available But Can not do 02/18, Pre-op Diagnosis: LEFT breast ADH. , Procedure: Left breast seed-localized excisional biopsy. , Location: [facility]. , Anesthesia: MAC. , Case Length: 1 hr. , Athlete Manager: Viri or TOSHA. , Patient Type: Outpatient. [...] date. Informed patient I will confirm with [facility] and give her a call back, Viri Hamilton 02/06/2024 02:13:40 PM >Called [facility] and spoke with Unique. Scheduled patient for 03/04 with an 11:30am OR time. Did three way call with (Lyssa) at breast center. Lyssa confirmed patient for 03/04 at for 10am breast center, 11:30 or with an 8:45 am arrival. [facility] will notify patient of times. Added patient to calendars for [facility] [place] for assist on 03/04 at 11:30am. , PO scheduled for 03/17 at 1pm with [facility] (in person) [facility]. Called patient and reviewed details, also informed her I sent secure message. No further questions at this time, patient will call if she thinks of anything. 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) Referral Organization [facility] Referring Provider First Name Floresita Referring Provider Last Name Candice darby Referring Provider Speciality General Avelina friedman Referred Provider Specialty Genetics General Notes Carolyn Kenney 02/03 09:51:30 AM >Please call patient to schedule Consult, Carolyn Kenney 02/04/2024 09:52:57 AM [facility] 10:58:40 AM >pt not scheduled, Carolyn Kneney 08/30/2024 10:02:49 AM >Pt not Scheduled Referral Priority Routine Reason Tier 1-SURG 03/23/24 [facility] Diagnosis 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 , Procedure: Left central lumpectomy. , Location: [facility]. , Anesthesia: MAC. , Case Length: 45 min. , Athlete Manager: TOSHA or Viri. , Patient Type: Outpatient. [...] 3. Estrogen receptor positive - Z17.0 , [id number], CLARICE GLORY 03/18/2024 08:13:32 AM >03/23? 03/25? 03/30? Per Beba at [facility] 03/23 yes, surg at 845 arrive [facility] will inform pt times. cherelle sent, GLORY ONEIL 03/18/2024 08:23:05 AM >pt confirmed. po scheduled 03/30 [facility] 12pm. cherelle summary sent Clinical Notes GLORY ONEIL 03/18 08:25:23 AM >[id number]/[facility]. 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) Referral Organization [facility] Referring Provider First Name Floresita Referring Provider Last Name Candice darby Referring Provider Speciality General Quan elder Referred Provider Specialty Radiation On cology General Notes Carolyn Kenney 04/06 09:42:18 AM >Please call patient and schedule with Pablito Dawson Brenna 04/06/2024 09:42:51 AM >Faxed to Pablito Dawson Brenna 06/10/2024 02:36:28 PM > [place] [facility] has reached out to pt 2x pt not scheduled, Carolyn Kenney 08/06/2024 11:00:30 AM >pt Declied Rad Onc Consult Referral Priority Routine Reason 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 - Dr Pham Diagnosis 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) Referral Organization [facility] Referring Provider First Name Floresita Referring Provider Last Name Candice darby Referring Provider Speciality General Quan elder Referred Provider Specialty Medical Onco logy General Notes Carolyn Kenney 04/06 09:40:11 AM >Please call patient and schedule with Pablito Dawson Brenna 04/06/2024 09:42:01 AM >Faxed to Pablito Dawson Brenna 06/10/2024 02:38:05 PM > [facility] has reached out to pt 2x pt not scheduled, Carolyn Kenney 08/06/2024 11:01:33 AM >has pt been seen by [facility], TEREZA BUSH 08/20/2024 11:11:16 AM >REQUESTED Referral Priority Urgent Medications Medication SIG (Take, Route, Frequency, Duration) [...] Problem Status W/U Status Risk Notes Problem [id number] Family hx-breast malignancy (Z80.3) Active confirmed Problem 987673128 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) Active confirmed Problem [id number] 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) Active confirmed Problem 115865210 Adopted person (Z02.82) Active confirmed Vital Signs [...] Location Date Provider Diagnosis [facility] at [address] [place] [address] 02/03/2024 Floresita Mcfarland Atypical ductal hyperplasia of left breast N60.92 ; Family hx-breast malignancy Z80.3 and Adopted person Z02.82 [facility] Maggie at [facility] [address] [facility] [place] [address] 03/17/2024 Floresita Mcfarland Aftercare following surgery Z48.89 ; Ductal carcinoma in situ (DCIS) of left breast D05.12 and Estrogen receptor positive Z17.0 [facility] at [address] [place] [address] 03/30/2024 Floresita Mcfarland Aftercare following surgery Z48.89 and Ductal carcinoma in situ (DCIS) of left breast D05.12 [facility] Rebeca Bill at [address] [place] [address] 08/30/2024 Floresita Mcfarland [facility] at [address] [place] [address] 01/30/2024 Roseline Anguiano [facility] at [address] [place] [address] 03/11/2024 Floresita Mcfarland [address] [place] [address] 03/26/2024 Floresita Mcfarland [address] [place] [address] 04/28/2024 Floresita Mcfarland Assessments Encounter Date Diagnosis [...] Coverage End Date MEDICARE NGS [address] [place] [phone] [id number] ELIASSHARONDA ALEX Espinal Self - patient is the insured [facility] [address] [place], [place] [id number] ALEX SANTIAGO Self - patient is the [...] my and discectomy 2013 lumbar laminectomy L5-S1 2015 left knee replacement 2022 ultrasound-guided biopsy of left breast - Dr Green 01/28/2024 Right Knee Replacement Right Eye Lens Surgery Hospitalization History Reason Date(Month/Year) Surgery Child Birthx7
[2024-09-02 19:55] VITALS: BP 135/85; PULSE 85; RESP 18; TEMP 36.7; O2SAT 97; BMI 31.3
--- NOTE | 2024-09-02 20:10 | CRLHL7_ITS ---
For Patients: As a result of the Cures Act, medical imaging exams and procedure reports are released immediately into your electronic medical record. You may view this report before your referring provider. If you have questions, please contact your health care provider. INDICATION: Cough, shortness of breath. TECHNIQUE: Chest 2 views. COMPARISON: May 28, 2022. FINDINGS: Cardiovascular and mediastinum: Heart size and vasculature are normal in caliber and appearance. Lungs and pleural spaces: Lungs are clear. No sign of infiltrate or mass. No sign of pleural effusion. No pneumothorax. Bones and soft tissues: No significant findings. IMPRESSION: No acute or significant findings. Dictated by Elan Carolina MD @ 09/02/2024 8:57:26 PM (Electronically Signed)
--- NOTE | 2024-09-02 20:11 | ED_ITS ---
HPI - SOB/Dyspnea General Chief Complaint: Shortness of Breath/Dyspnea Stated Complaint: shortness of breath, pain under left breast Time Seen by Provider: 09/02/24 19:54 History of Present Illness HPI Narrative: This 84-year-old female comes in reporting shortness of breath and some ass ociated chest discomfort on the left side. She states that she has had a cough for the past few days but became short of breath today. She does arrive with normal vital signs and oximetry on room air at 93%. She is a smoker. She does not report any fevers. Related Data Home Medications ?Medication ?Instructions ?Recorded ?Confirmed potassium chloride 20 mEq 20 meq PO DAILY 02/06/22 09/02/24 tablet,extended release(part/cryst) cholecalciferol (vitamin D3) 1 cap PO DAILY 02/01/23 09/02/24 rosuvastatin 20 mg tablet (Crestor) 20 mg PO DAILY 07/21/24 09/02/24 triamterene 37.5 1 cap PO DAILY 07/21/24 09/02/24 mg-hydrochlorothiazide 25 mg capsule Previous Rx's ?Medication ?Instructions ?Recorded meclizine 25 mg tablet 25 mg PO TID PRN #15 tabs 08/23/24 ondansetron 4 mg disintegrating 4 mg PO Q8H PRN nausea and 08/23/24 tablet vomiting #10 tabs methylprednisolone 4 mg tablets in See Rx Instructions PO .COMPLEX 09/02/24 a dose pack (Medrol (Kadeem)) #21 ea Allergies Allergy/AdvReac Type Severity Reaction Status Date / Time No Known Drug Allergies Allergy Verified 09/02/24 19:57 Review of Systems Status of ROS: Reports: 10 or more systems reviewed and unremarkable except as noted in History and below Narrative: Constitutional: No fevers, no weight gain or loss. Eyes: No discharge. No vision changes. HENT: No congestion, no sore throat, no ear pain. Cardiovascular: No palpitations. Respiratory: No wheezes. Gastrointestinal: No abdominal pain, no vomiting, no diarrhea. Genitourinary: No dysuria, no hematuria. Musculoskeletal: Normal range of motion. Skin: No rashes, no pruritis. Neurological: No dizziness, weakness, sensory change, speech change. Endo/Heme/Allergies: No bruising or bleeding. No polydipsia. Pysch: no suicidality, no anxiety, no insomnia. All other systems reviewed and are negative. [facility] Medical History (Updated 09/02/24 @ 21:21 by Derrick Griffin MD) Uterine mass ?N85.8 - Other specified noninflammatory disorders of uterus (ICD-10) Tobacco use ?Z72.0 - Tobacco use (ICD-10) Subclavian vein stenosis, right ?I87.1 - Compression of vein (ICD-10) Subclavian arterial stenosis ?I77.1 - Stricture of artery (ICD-10) Pulmonary nodules ?R91.8 - Other nonspecific abnormal finding of lung field (ICD-10) Pneumonia, organism unspecified ?J18.9 - Pneumonia, unspecified organism (ICD-10) PAD (peripheral artery disease) ?I73.9 - Peripheral vascular disease, unspecified (ICD-10) Osteopenia ?M85.80 - Other specified disorders of bone density and structure, unspecified site (ICD-10) Osteoarthritis of right knee ?M17.11 - Unilateral primary osteoarthritis, right knee (ICD-10) Lumbar disc herniation ?M51.26 - Other intervertebral disc displacement, lumbar region (ICD-10) Hyperlipidemia ?E78.5 - Hyperlipidemia, unspecified (ICD-10) Hypercholesteremia ?E78.00 - Pure hypercholesterolemia, unspecified (ICD-10) HTN (hypertension) ?I10 - Essential (primary) hypertension (ICD-10) Endometrial mass ?N94.89 - Other specified conditions associated with female genital organs and menstrual cycle (ICD-10) DDD (degenerative disc disease) Asymmetric blood pressures ?I99.8 - Other disorder of circulatory system (ICD-10) ASCVD (arteriosclerotic cardiovascular disease) ?I25.10 - Atherosclerotic heart disease of [place] coronary artery without angina pectoris (ICD-10) Surgical History (Updated 09/02/24 @ 20:08 by Greg Crockett RN) History of cataract removal with insertion of prosthetic lens ?Z98.49 - Cataract extraction status, unspecified eye (ICD-10) ?Z96.1 - Presence of intraocular lens (ICD-10) History of cholecystectomy ?Z90.49 - Acquired absence of other specified parts of digestive tract (ICD- 10) History of laminectomy ?Z98.890 - Other specified postprocedural states (ICD-10) History of lumbar discectomy ?Z98.890 - Other specified postprocedural states (ICD-10) History of breast surgery ?Z98.890 - Other specified postprocedural states (ICD-10) History of total knee arthroplasty ?Z96.659 - Presence of unspecified artificial knee joint (ICD-10) Social History Smoking Status: Current every day smoker What tobacco products do you use: cigarettes Smoking packs per day: 1 Smoking cigarettes per day: 20.0 Years smoked: 70 Smoking pack-years: 70.00 Do you use any of these nicotine containing products: None Second hand tobacco smoke exposure: Yes How often do you have a drink containing alcohol: never AUDIT-C Alcohol total score: 0 Non-prescribed substance use: denies use service: No Exam Narrative: Exam Narrative: Constitutional: Well-developed, well-nourished, no acute distress. HEENT: Normocephalic, atraumatic. Neck: Normal range of motion. Nontender. Supple. Heart: Regular. No murmurs. Normal rate. Intact distal pulses. Lungs: Clear to auscultation. Chest discomfort on left side that is reproducible with certain movements and deep breaths. No wheezes, rhonchi, or rales. Abdomen: Normal bowel sounds. Nontender. No rebound tenderness. Genitalia: Deferred. Back: No midline tenderness. Normal range of motion. Extremities: Normal range of motion. No injury. Skin: Intact. No rash. Warm. No erythema or pallor. Neurologic: No altered sensation. No weakness. Alert and oriented. Psychiatric: No suicidality. No anxiety or depression. No insomnia. Nursing notes and vitals signs are reviewed. Const: Vital Signs, click to edit/add: Vital Signs - 24 hr 09/02/24 19:55 09/02/24 20:43 Temperature 98.0 F Pulse Rate [Right Pulse Oximeter] 85 79 Respiratory Rate 18 30 H Blood Pressure [Le ft Upper Arm] 135/85 137/87 Pulse Oximetry 97 97 Oxygen Delivery Me thod Room Air Room Air Course Vital Signs Vital signs: Initial Vital Signs Temperature 98.0 F 09/02/24 19:55 Temperature Source Temporal Artery Scan 09/02/24 19:55 Pulse Rate 85 09/02/24 19:55 Respiratory Rate 18 09/02/24 19:55 Blood Pressure 135/85 09/02/24 19:55 Blood Pressure Mean 101 09/02/24 19:55 Blood Pressure Position Sitting 09/02/24 19:55 Pulse Oximetry 97 09/02/24 19:55 Oxygen Delivery Method Room Air 09/02/24 19:55 Vital Signs Temperature 98.0 F 09/02/24 19:55 Pulse Rate 85 09/02/24 19:55 Respiratory Rate 18 09/02/24 19:55 Blood Pressure 135/85 09/02/24 19:55 Pulse Oximetry 97 09/02/24 19:55 Oxygen Delivery Method Room Air 09/02/24 19:55 Temperature 98.0 F 09/02/24 19:55 Pulse Rate 79 09/02/24 20:43 Respiratory Rate 30 H 09/02/24 20:43 Blood Pressure 137/87 09/02/24 20:43 Pulse Oximetry 97 09/02/24 20:43 Oxygen Delivery Method Room Air 09/02/24 20:43 Medications Administered Medications: Discontinued Medications Generic Name Dose Route Start Last Admin Trade Name Freq PRN Reason Stop Dose Admin Albuterol/Ipratropium 1 neb 09/02/24 20:10 09/02/24 20:16 Iprat-Albut 0.5-2.5 Mg/3 Ml Neb IH 09/02/24 20:11 1 neb ONCE ONE Administration Dexamethasone 10 mg 09/02/24 20:10 09/02/24 20:16 Dexamethasone 10 Mg/Ml Inj PO 09/02/24 20:11 10 mg ONCE ONE Administration MDM - SOB/Dyspnea MDM Narrative Medical decision making narrative: This patient comes in reporting shortness of breath as described above. She has been smoking apparently since age 10 so this would be a total of 74 years. A chest x-ray is obtained and shows no acute findings. Additionally nasal swab is negative for viruses tested. Her troponin and EKG are also in normal range. The patient did receive an oral dose of dexamethasone and a DuoNeb and this helped her significantly. She states that she does have a nebulizer and inhaler at home and did not think to use it. She is okay to be discharged home and has reassuring vital signs. A did provide a prescription for Medrol Dosepak. Lab Data Labs: Lab Results 09/02/24 09/02/24 Range/Units 19:52 20:11 SARS-CoV-2 (PCR) Negative SARS-CoV-2 (Negative) Influenza Type A (PCR) Negative PCR FLU A (Negative) Influenza Type B (PCR) Negative PCR FLU B (Negative) RSV (PCR) Negative PCR RSV (Negative) POC Troponin I 0.01 (0.01-0.04) ng/ml Imaging Data Chest x-ray: Radiologist's impression: No acute or significant findings. ECG Data Attestation: I personally reviewed and interpreted this ECG as follows: Interpretation: Normal sinus rhythm. Rate is 78 beats per minute. There are no ST or T-wave abnormalities. Discharge Plan Discharge Clinical Impression: COPD (chronic obstructive pulmonary disease), Continuous tobacco abuse Patient Disposition: Home w/ Parent or Adult Condition: Improved Additional Instructions: Use inhalers and nebulizer treatments as needed and directed. Take medication also as prescribed. Smoking cessation is advised. Follow up with MD return if worsening. Prescriptions: New methylprednisolone [Medrol (Kadeem)] 4 mg tablets,dose pack See Rx Instructions .ROUTE .COMPLEX Qty: 21 0RF Rx Instructions: orally per package directions No Action triamterene-hydrochlorothiazid 37.5-25 mg capsule 1 cap PO DAILY rosuvastatin [Crestor] 20 mg tablet 20 mg PO DAILY meclizine 25 mg tablet 25 mg PO TID PRNQty: 15 0RF ondansetron 4 mg tablet,disintegrating 4 mg PO Q8H PRN (Reason: nausea and vomiting) Qty: 10 0RF potassium chloride 20 mEq tablet,ER particles/crystals 20 meq PO DAILY Patient Comments: TAKE ONE TABLET BY MOUTH EVERY DAY cholecalciferol (vitamin D3) 1 cap PO DAILY Follow Up/Referrals: Provider,Not a Local [Primary Care Provider] - Stand Alone Forms: .Club Domain[employer]h Info Instructions
[2024-09-02] MEDS: dexAMETHasone 10 MG/ML inj PO (20:16)
[2024-09-02] MEDS: IPRAT-ALBUT 0.5-2.5 MG/3 ML NEB 1 NEB IH (20:16)
[2024-09-02 20:36] LABS: PCR FLU A Negative PCR FLU A (Negative); PCR FLU B Negative PCR FLU B (Negative); PCR RSV Negative PCR RSV (Negative); SARS PCR* Negative SARS-CoV-2 (Negative)
[2024-09-02 20:42] LABS: Troponin, Point-of-Care* 0.01 ng/ml (0.01-0.04)
[2024-09-02 20:43] VITALS: BP 137/87; PULSE 79; RESP 30; O2SAT 97
--- OUTSIDE RECORDS SUMMARY | 2024-09-02 20:49 | XMS_ITS | Clinical Summary ---
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 Alcohol Use Standard Drinks/Week Comments Not [...] Vaccine Discontinued Medical Devices Implanted Type Area Telephonic Rn Device Identifier Shelf Expiration Date Model / Serial / Lot [employer]romark T3-01/28/2024 Implanted:Qty: 1 on 01/28/2024 by Amando Green MD Clip Left: Breast / / [id number] Procedures Procedure Name Priority Date/Time Associated Diagnosis Comments XR BONE DENSITY-SPINE & HIP Routine 07/05/2021 10:34 AM [employer] Screening for osteoporosis Postmenopausal from Last 3 Months or Most Recently Relevant to Health Maintenance Results * XR (JAEL) BONE DENSITY-SPINE & HIP (07/05/2021 10:34 AM [employer]) Anatomical Region Laterality Modality Extremity Computed Radiogr aphy 07/05/2021 10:3 5 AM [employer] Impressions 07/05/2021 10:37 AM [employer] IMPRESSION: Osteopenia. WHO Classification of bone density for post-menopausal women, and men over 50 years of age, is as follows: Normal bone density: T score greater than -1.0. Osteopenia (Low bone density): T score between -1.0 and -2.5. Osteoporosis: T score less than -2.5. REPORT SIGNED BY DR. Gordy Kim 07/05/2021 10:37 AM [employer] EXAM: DEXA BONE DENSITY STUDY DATE: 07/05/2021 10:14 AM COMPARISON: None submitted. CLINICAL DATA: Osteoporosis screening. Post-menopausal. TECHNIQUE: A bone density evaluation using DEXA (dual energy x-ray absorptiometry) was performed for your patient at the [facility] in [place] using a [employer] ([employer]) unit. FINDINGS: Lumbar Spine (L1 and [...] was performed for your patient at the [facility] in [place] using a [employer] ([employer]) unit. FINDINGS: Lumbar Spine (L1 and [...] Most Recently Relevant to Health Maintenance Insurance [facility] MEDICARE PART A & B [facility] MEDIC[facility] PART A & B MEDICARE PART A & B [facility] Advance Directives For more information, please contact: [phone] * Full Code (Latest Code Status on File) Date Activated Date Inactivated Comments 05/01/2016 4:04 PM 05/11/2016 4:39 PM Question Answer Comments How was code status determined? Patient * Full Code Date Activated Date Inactivated Comments 08/08/2013 5:53 PM 08/09/2013 8:08 PM Question Answer Comments How was code status determined? Patient Care Teams Customer Expert Relationship Specialty Start Date End Date Francesco Bonner MD PCP - General 03/04/24 Francesco Bonner MD 08/11/13
--- OUTSIDE RECORDS SUMMARY | 2024-09-02 20:49 | XMS_ITS | Patient Health Record ---
Author Organization [employer] Address [address] [place] [address] Care Team Providers Care Breaker Tender Name Role Phone EdwardMelchor hardwick Primary Care Provider [phone] Chidi Nix Unavailable [phone] Allergies No Known Allergies Results Component Value Reference Range Notes Basic Metabolic Panel Reviewed date:12/03/2023 05:17:47 PM Interpretation:Normal# Performing Lab: Notes/Report: Testing performed at [facility], [address] [place] [address], Byproducts Pump Operator Jose Chung MD, CLIA# [id number] Is the patient fasting? No Sodium 140 135-145 mmol/L Potassium 4.0 3.5-5.0 mmol/L Chloride 105 98-107 mmol/L Carbon Dioxide 27 22-30 mmol/L Anion Gap 8.0 4.0-12.0 mmol/L Urea Nitrogen 13 7-18 mg/dL Creatinine 1.00 0.50-1.20 mg/dL Glucose 97 65-99 mg/dL Calcium 10.0 8.4-10.2 mg/dL eGFR 56 >60 mL/min/1.73 Liver Panel Reviewed date:07/23/2024 07:11:54 PM Interpretation:Normal Performing Lab: Notes/Report: Testing performed at [facility], [address] [place] [address], Byproducts Pump Operator Jose Chung MD, CLIA# [id number] Albumin 4.3 3.7-4.7 g/dL Alkaline Phosphatase 73 38-126 U/L ALT 30 <35 U/L AST 35 10-40 U/L Total Bilirubin 0.9 0.2-1.3 mg/dL Direct Bilirubin 0.3 0.0-0.5 mg/dL Total Protein 6.9 2.0-8.0 g/dL CT Scan : Abdomen and Pelvis without Oral Contrast with IV Contrast Reviewed date:07/27/2024 05:34:33 PM Interpretation:Abnormal Performing Lab: Notes/Report: Abnormal Glucose Reviewed date:07/28/2024 08:53:35 AM Interpretation: Performing Lab: Notes/Report: Glucose 105 65 - 99 mg/dl Creatinine Reviewed date:07/28/2024 08:52:53 AM Interpretation: Performing Lab: Notes/Report: Creatinine 0.8 0.5 - 1.2 mg/dl Glomerular Filtration Rate 73 Hemoglobin Reviewed date:07/28/2024 08:52:06 AM Interpretation: Performing Lab: Notes/Report: Hemoglobin 14.4 12.3 - 15.7 gm/dL SURGICAL PATHOLOGY Reviewed date:01/30/2024 01:30:48 PM Interpretation: Performing Lab: Notes/Report: . Left breat, needle b iopsy. Sclerosing lesion with atypical ductal hyperplasia. Ultrasound : Breast BX Left with Clip and Mammo Reviewed date:01/30/2024 12:40:37 PM Interpretation:Abnormal Performing Lab: Notes/Report: Abnormal Ultrasound : Breast Bilatera l Reviewed date:01/30/2024 10:43:18 AM Interpretation:Abnormal Performing Lab: Notes/Report: Abnormal 3D Mammogram, Breast Tomosyn thesis, Diagnostic, Bilateral Reviewed date:01/28/2024 05:44:17 PM Interpretation:Abnormal Performing Lab: Notes/Report: Abnormal Electrocardiogram (EKG) Reviewed date:01/20/2024 11:57:50 AM Interpretation: Performing Lab: Notes/Report: X ray : Chest (PA lateral) Reviewed date:01/22/2024 01:44:59 PM Interpretation:Normal Performing Lab: Notes/Report: Normal Basic Metabolic Panel Reviewed date:02/19/2024 03:07:43 PM Interpretation:Normal Performing Lab: Notes/Report: Testing performed at [facility], [address] [place] [address], Byproducts Pump Operator Jose Chung MD, CLIA# [id number] Is the patient fasting? Yes Sodium 138 135-145 mmol/L Potassium 3.9 3.5-5.0 mmol/L Chloride 102 98-107 mmol/L Carbon Dioxide 31 22-30 mmol/L Anion Gap 5.0 4.0-12.0 mmol/L Urea Nitrogen 12 7-18 mg/dL Creatinine 1.00 0.50-1.20 mg/dL Glucose 87 65-99 mg/dL Calcium 10.2 8.4-10.2 mg/dL eGFR 56 >60 mL/min/1.73 Hemoglobin Reviewed date:02/17/2024 11:42:57 AM Interpretation:Normal Performing Lab: Notes/Report: Testing performed at [facility], [address] [place] [address], Byproducts Pump Operator Jose Chung MD, CLIA# [id number] Hemoglobin 14.3 12.3-15.7 gm/dl Electrocardiogram (EKG) Reviewed date:02/17/2024 11:24:33 AM Interpretation: Performing Lab: Notes/Report: Reason For Referral Reason eval and treat for t horacolumbar strain left side Diagnosis 1 Lumbar strain, initi al encounter (S39.012A) Referral Organization [facility] Referring Provider First Name Chidi Referring Provider Last Name Boyd Referring Provider Speciality Internal M edicine Referred Provider [facility], [facility]ly [facility] Referred Provider Specialty Physical The rapist General Notes Ashly Ybarra 10/01 11:16:08 AM >Referral faxed with attachments.Tate Sharon 10/20/2023 12:13:37 PM >Referral faxed to [phone], Phone number [phone]. Referral Priority Routine Reason Referral for vertigo , evaluate and treat Diagnosis 1 Benign paroxysmal po sitional vertigo, unspecified laterality (H81.10) Referral Organization [facility] Monisha Referring Provider First Name Melchor Referring Provider Last Name Edward Referring Provider Speciality Family Med iftikhar Referred Provider [facility] Referred Provider Specialty Rehabilitati on General Notes Leanne Valadez 08/27 01:55:07 PM >Documents/Referral faxed.Kendrick Robyn 08/30/2024 03:44:58 PM >No insurance referral required. Referral Priority Routine Medications Medication SIG (Take, Route, Frequency, Duration) Notes Start Date End Date Status Meclizine HCl 25 MG TAKE 1 TABLET BY ANNA TH THREE TIMES DAILY NEEDED Oral Active Triamterene-HCTZ 37.5-25 MG 1 tablet in the morning Orally Once a day Active Ondansetron 4 MG 1 tablet on the tong ue and allow to dissolve Orally Twice a day as needed 07/21/2024 Active Potassium Chloride ER 20 MEQ 1 tablet with food Orally Once a day Active Vitamin D-3 25 MCG (1000 UT) 1 capsule Orally Once a day Active Rosuvastatin Calcium 20 MG 1 tablet Oral ly Once a day Active Immunizations Vaccine Route Administration Date Status Comme nts Historic - Zoster Vaccine (Shingrix) Unknown 03/27/2020 Administered Problems Problem Type SNOMED Code ICD Code Onset Dates Problem Status W/U Status Risk Notes Problem COPD - Chronic obstructive pulmonary disease (42761974) COPD (chronic obstructive pulmonary disease) (496) Active confirmed Problem 980884576 History of anemi a (Z86.2) Active confirmed Problem 91093340 Essential hypertension (I10) Active confirmed Problem 698026872 Acute diverticulitis (K57.92) Active confirmed Problem 05468457 Tobacco dependen ce (F17.200) Active confirmed Problem 788908221 Mixed hyperlipidemia (E78.2) Active confirmed Problem 510557121 Lung nodules (R91.8) Active confirmed Problem 010564068 COPD, moderate (J44.9) Active confirmed Problem 447965614 Atypical ductal hyperplasia, 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) Active confirmed Vital Signs Heart Rate 97 /min 08/26/2024 Temperature 97.7 degrees Fahrenheit 08/26/2024 Respiratory Rate 16 /min 02/17/2024 Oxygen satu ration obtained while patient on room air @ rest Oximetry 94 % 08/26/2024 Blood pressure diastolic 72 mm Hg 08/26/2024 Height 62 in 08/26/2024 Blood pressure systolic 143 mm Hg 08/26/2024 Weight 169 lbs 08/26/2024 BMI 30.91 kg/m2 08/26/2024 Encounters Encounter Location Date Provider Diagnosis [facility] Rebeca Bill [address] [place] [address] 10/17/2023 Chidi Partgiovanna Lumbar strain, initi al encounter S39.012A [facility] Ema [address] [place] [address] 11/04/2023 Melchor Edward Essential hypertensi on I10 [facility] [place] [address] [place] [address] 12/02/2023 Melchor Edward [address] [place] [address] 03/30/2024 Melchor Edward [facility] [place] [address] [place] [address] 07/21/2024 Melchor Edward [facility] [place] [address] [place] [address] 10/28/2023 Melchor Edward Essential hypertensi on I10 [facility] [place] [address] [place] [address] 10/28/2023 Melchor Edward [facility] [place] [address] [place] [address] 10/29/2023 Melchor Edward [facility] [place] [address] [place] [address] 11/02/2023 Melchor Edward Essential hypertensi on I10 [facility] [place] [address] [place] [address] 11/02/2023 Melchor Edward Essential hypertensi on I10 [facility] [place] [address] [place] [address] 01/17/2024 Melchor Edward [facility] [place] [address] [place] [address] 05/30/2024 Melchor Leon Mixed hyperlipidemia E78.2 and Essential hypertension I10 [facility] [place] [address] [place] [address] 07/27/2024 Melchor Edward [facility] [place] [address] [place] [address] 08/20/2024 Melchor Edward [facility] [place] [address] [place] [address] 08/24/2024 Melchor Edward [facility] [place] [address] [place] [address] 08/27/2024 Melchor Edward [facility] [place] [address] [place] [address] 10/17/2023 Chidi Dixonoll Lumbar strain, initi al encounter S39.012A [facility] [place] [address] [place] [address] 11/26/2023 Melchor Leon Essential hypertensi on I10 and COPD with exacerbation J44.[address] [address] 01/20/2024 Melchor Leon Left-sided chest shruti n R07.9 ; Pain of left breast N64.4 and Breast cancer screening by mammogram Z12.[address] [address] 07/23/2024 Melchor Leon Acute diverticulitis K57.92 ; Elevated bilirubin R17 ; Essential hypertension I10 and COPD, moderate J44.[address] [address] 02/17/2024 Melchor Leon Atypical ductal hyperplasia, breast N60.99 ; Essential hypertension I10 and Preoperative examination Z01.[address] [address] 08/26/2024 Melchor Leon Benign paroxysmal positional vertigo, unspecified laterality H81.10 Assessments Encounter Date Diagnosis (ICD Code) Assessment Notes Treatment Notes Treatment Clinical Notes Section Notes 10/17/2023 Lumbar strain, initial encounter (ICD-10 - S39.012A) Patient appears to have a lumbar muscle strain on the left side. Reassured I did not think this was renal related. Spine is nontender. Recommend changing to Flexeril for muscle relaxant, Tylenol with codeine to use as needed for pain, given lower back stretching exercises and referred to physical therapy. If symptoms continue despite these measures would consider imaging of the back. 10/17/2023 Lumbar strain, initial encounter (ICD-10 - S39.012A) 11/02/2023 Essential hypertension (ICD-10 - I10) 11/02/2023 Essential hypertension (ICD-10 - I10) 11/04/2023 Essential hypertension (ICD-10 - I10) 05/30/2024 Mixed hyperlipidemia (ICD-10 - E78.2) 07/23/2024 Acute diverticulitis (ICD-10 - K57.92) Finish course of antibiotics. If symptoms improve, no followup needed. OK to advance diet as tolerated. Please send record release to [facility] for your CT report to be sent to me Discussed pathophysiology of diverticulitis with patient. Questions answered 07/23/2024 Elevated bilirubin (ICD-10 - R17) This is unlikely concerning, but will recheck labs today today Discussed pathophysiology of diverticulitis with patient. Questions answered 08/26/2024 Benign paroxysmal positional vertigo, unspecified laterality (ICD-10 - H81.10) Start home exercises. Arrange vestibular rehab when you are able. Continue meclizine as needed [place] Exercises for Vertigo: Care Instructions material was printed She was not given any exercise instructions when she was in the emergency room. Anticipate this should be a self-limited illness, however, I think she would benefit from exercises and potentially formal therapy 01/20/2024 Left-sided chest pain (ICD-10 - R07.9) Reassurance that your chest x-ray and EKG look normal She alternatively describes this as pain in her left chest and pain in her left breast. She does have a family history of breast cancer in her daughter who 14 years ago from breast cancer. She is not up-to-date on mammogram due to age, but she would like to proceed with them at this time 11/26/2023 Essential hypertension (ICD-10 - I10) Follow up with me in 6 months. 11/26/2023 COPD with exacerbation (ICD-10 - J44.1) Return if symptoms do not improve in the next one week, or sooner if symptoms worsen 10/28/2023 Essential hypertension (ICD-10 - I10) 02/17/2024 Atypical ductal hyperplasia, breast (ICD-10 - N60.99) 01/20/2024 Pain of left breast (ICD-10 - N64.4) Arrange mammograms and ultrasound when you are able She alternatively describes this as pain in her left chest and pain in her left breast. She does have a family history of breast cancer in her daughter who 14 years ago from breast cancer. She is not up-to-date on mammogram due to age, but she would like to proceed with them at this time 02/17/2024 Preoperative examination (ICD-10 - Z01.818) Nothing to eat or drink after midnight, the night before surgery. Please let me know if you have any questions The patient is cleared medically for the proposed procedure. I have reviewed all medications with the patient today and I have given instructions on perioperative administration of medications. All pending test results will be forwarded to the surgery location. I appreciate the opportunity to provide a preoperative medical consultation on this patient 02/17/2024 Essential hypertension (ICD-10 - I10) Do not take your morning medications, on the morning of surgery. You may take them after you get home, or skip them that day 07/23/2024 Essential hypertension (ICD-10 - I10) Discussed pathophysiology of diverticulitis with patient. Questions answered 05/30/2024 Essential hypertension (ICD-10 - I10) 07/23/2024 COPD, moderate (ICD-10 - J44.9) Discussed pathophysiology of diverticulitis with patient. Questions answered 01/20/2024 Breast cancer screening by mammogram (ICD-10 - Z12.31) She alternativel y describes this as pain in her left chest and pain in her left breast. She does have a family history of breast cancer in her daughter who 14 years ago from breast cancer. She is not up-to-date on mammogram due to age, but she would like to proceed with them at this time 10/17/2023 Other Low Back Pain: Exercises material was printed 11/26/2023 Other This note was created using voice recognition software and/or physician entered typing. Because of this, unintended word substitutions and/or spelling or typing errors may be noted 01/20/2024 Other This note was created using voice recognition software and/or physician entered typing. Because of this, unintended word substitutions and/or spelling or typing errors may be noted She alternatively describes this as pain in her left chest and pain in her left breast. She does have a family history of breast cancer in her daughter who 14 years ago from breast cancer. She is not up-to-date on mammogram due to age, but she would like to proceed with them at this time 02/17/2024 Other This note was created using voice recognition software and/or physician entered typing. Because of this, unintended word substitutions and/or spelling or typing errors may be noted 07/23/2024 Other This note was created using voice recognition software and/or physician entered typing. Because of this, unintended word substitutions and/or spelling or typing errors may be noted Discussed pathophysiology of diverticulitis with patient. Questions answered 08/26/2024 Other This note was created using voice recognition software and/or physician entered typing. Because of this, unintended word substitutions and/or spelling or typing errors may be noted She was not given any exercise instructions when she was in the emergency room. Anticipate this should be a self-limited illness, however, I think she would benefit from exercises and potentially formal therapy Plan Of Treatment Future Test Test Name Order Date Basic Metabolic Panel 10/29/2023 Ultrasound : Breast Unilateral Left 01/01 Mammogram, diagnostic, left breast 01/19 Mammogram Digital, CAD screening, unilat eral right breast 01/20/2024 Lipid Panel 05/31/2024 Insurance Providers Payer Name Payer Address Payer Phone Subscriber Number Group Number Insured Name Patient Relationship to Insured Coverage Start Date Coverage End Date Medicare Part B ACO [address] [place] [address] [id number] Tea sandoval Jennifer Self - patient is the insured 5 [address] [place] [address] [id number] Tea Jennifer sandoval Self - patient is the insured Medical (General) History Medical History History ICD Code COPD tobacco dependence Hypertension, started treatm ent in her 70s. Asymmetric BP, always check in left arm Hyperlipidemia Subclavian artery stenosis, Moderate to severe (>50%) RIGHT subclavian artery stenosis, 2021 Coronary artery disease with positive CT coronary calcium score Pulmonary nodules, followed by serial CT , most recent 12/09/2022 Surgical History Surgery Date(Month/Year) Endometrial polyp removal 2021 bilateral total knee arthroplasties 2021 and 2022 lumbar discectomy, Dr. Matias Lucia cholecystectomy 1971
--- OUTSIDE RECORDS SUMMARY | 2024-09-02 20:49 | XMS_ITS ---
Author Name Interface, [employer] Address [address] [facility] [address] [address] [facility] Address [address] [facility] [address] [place] [address] Care Team Providers Care Configuration Management Architect Name Role Phone Baer Mannyangeliquejelly Araujo Unavailable [...] RESULTS BELOW CASE REPORTPat hology Report Case: [id number] ing Provider: Unknown, Doctor Collected :03/07/20 22 1115Order ing Location: [facility] Received: 2 2249Patho logist: [...] specimens .ADDITION AL INFORMATI ONInterpr eted at [facility] [address], [facility] [place], [place] [address]Cvgc Performed by:[facility] - [facility] [place], [place] [address]Igbg e [phone] FINAL Gabriel Vargas on Medications Date Name [...]
--- OUTSIDE RECORDS SUMMARY | 2024-09-02 20:50 | XMS_ITS | Referral Summary ---
Author Organization [facility] Address [address] [place] [address] Care Team Providers Care Developing Machine Tender Name Role Phone Francesco Bonner MD, Nathan [...] Asked; Counseling Given: Not Answered Comments:06/05 PPD [id number] DT, THREADING MACHINE FEEDER AUTOMATIC 12/18/2022 Alcohol Use Standard Drinks/Week Comments Not [...] on file Medical Devices Implanted Type Area Online Project Manager Device Identifier Shelf Expiration Date Model / Serial / Lot Hydromark T3-01/28/2024 Implanted:Qty: 1 on 01/28/2024 by Amando Green MD Clip Left: Breast / / [id number] Procedures Procedure Name Priority Date/Time Associated Diagnosis Comments XR BONE DENSITY-SPINE & HIP Routine 07/05/2021 10:34 AM MANAGER GROCERY Screening for osteoporosis Postmenopausal from Last 3 Months or Most Recently Relevant to Health Maintenance Results * XR (MDIP) BONE DENSITY-SPINE & HIP (07/05/2021 10:34 AM MANAGER GROCERY) Anatomical Region Laterality Modality Extremity Computed Radiogr aphy 07/05/2021 10:3 5 AM MANAGER GROCERY Impressions 07/05/2021 10:37 AM MANAGER GROCERY IMPRESSION: Osteopenia. WHO Classification of bone density for post-menopausal women, and men over 50 years of age, is as follows: Normal bone density: T score greater than -1.0. Osteopenia (Low bone density): T score between -1.0 and -2.5. Osteoporosis: T score less than -2.5. REPORT SIGNED BY DR. Gordy Payne Narrative 07/05/2021 10:37 AM MANAGER GROCERY EXAM: DEXA BONE DENSITY STUDY DATE: 07/05/2021 10:14 AM COMPARISON: None submitted. CLINICAL DATA: Osteoporosis screening. Post-menopausal. TECHNIQUE: A bone density evaluation using DEXA (dual energy x-ray absorptiometry) was performed for your patient at the [facility] in [place] using a HoloFlywheel (Discovery) unit. FINDINGS: Lumbar Spine (L1 and [...] was performed for your patient at the [facility] in [place] using a Hologic (Discovery) unit. FINDINGS: Lumbar [...] Most Recently Relevant to Health Maintenance Insurance [facility] MEDICARE PART A & B [facility] MEDICARE PART A & [place] [address] MEDICARE PART A & B [facility] Advance Directives For more information, please contact: [phone] * Full Code (Latest Code Status on File) Date Activated Date Inactivated Comments 05/01/2016 4:04 PM 05/11/2016 4:39 PM Question Answer Comments How was code status determined? Patient * Full Code Date Activated Date Inactivated Comments 08/08/2013 5:53 PM 08/09/2013 8:08 PM Question Answer Comments How was code status determined? Patient Care Teams Developing Machine Tender Relationship Specialty Start Date End Date Francesco Bonner MD PCP - General 03/04/24 Francesco Bonner MD 08/11/13
--- OUTSIDE RECORDS SUMMARY | 2024-09-02 20:50 | XMS_ITS | Encounter Summary ---
Author Organization [facility] Address [address] [place] [address] Care Team Providers Care Farm Equipment Maintenance Supervisor Name Role Phone Francesco Bonner MD Un[facility] Anup Gómez MD Primary Care Provider [phone] [facility] Francesco Bonner MD Primary Care Provider Unav ailable Reason for Visit * Reason Onset Date Comments Other 11/19/2021 Return call Chest tightness 11/19/2021 Encounter Details Date Type Department Care Team (Late st Contact Info) Description 11/19/2021 Nurse Triage [facility] Internal Medicine [address] [address] Anup Evans MD [address] [place] [address] [place] [address] Social History Tobacco Use Types [...] 20 minutes- none since [facility] see mD [id number] brian rs Oscar Romero RN Care sales agent casualty insurance Reason for Disposition [1] Chest pain lasts [...] nurse as requested. Please call her at [phone]. Seeother messages. Nandini Barkley [facility] Care Access Department documented in this encounter Plan of Treatment Not on file documented as of this encounter Visit Diagnoses Not on filedocumented in this encounter Care Teams Farm Equipment Maintenance Supervisor Relationship Specialty Start Date End Date Anup Evans MD [address] [place] [address] Dr Pérez [facility] [address] PCP - General Internal Medicine 02/23/16 03/04/[address] PÉREZ [address] [place] [address] PCP - Primary Care Clinic 02/23/16 06/12/23 Francesco Bonner MD PCP - General 03/04/24 Francesco Bonner MD 08/11/13 documented as of this encounter
--- OUTSIDE RECORDS SUMMARY | 2024-09-02 20:50 | XMS_ITS ---
Author Name Interface, [id number] lity Address [address] [facility] [address] [address] [facility] Address [address] [facility] [address] [place] [address] Care Team Providers Care Ceramic Products Sales Engineer Name Role Phone Baer Mannyangeliquejelly Araujo Unavailable [...] RESULTS BELOW CASE REPORTPat hology Report Case: [id number] ing Provider: Unknown, Doctor Collected :03/07/20 22 1115Order ing Location: [facility] Received: 2 2249Patho [...] specimens .ADDITION AL INFORMATI ONInterpr eted at [facility], [facility] - [address], [facility] [place], [place] [address]Cbgm Performed by:[facility] - [facility] [place] [address]Szpz e : FINAL Gabriel Vargas on Medications [...]
--- OUTSIDE RECORDS SUMMARY | 2024-09-02 20:50 | XMS_ITS | CCD ---
Author Name Interface, U6Oowsmkt lity Address [address] [place] [address] [facility] Oncology Address [facility] [address] Reason for Visit Encounters Medications Problems Social History
--- OUTSIDE RECORDS SUMMARY | 2024-09-02 20:50 | XMS_ITS | Clinical Summary ---
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 Gender Identity Not on file Sexual Orientation [...] vaccine series ( season) 2024 Influenza Vaccine (Season Ended) 2025 Medical Devices Implanted Type Area Radio Script Writer Device Identifier Shelf Expiration Date Model / Serial / Lot Cmnt Bone 40g Simplex P Non Atb Mv - [id number] Implanted:Qty: 1 on 01/14/2022 by Moises Souza MD at [facility] Right: Knee [employer] 05/01/2024 6191-1-010 / / [id number] Cmnt Bone 40g Simplex P Non Atb Mv - [id number] Implanted:Qty: 1 on 01/14/2022 by Moises Souza MD at [facility] Right: Knee [employer] 05/01/2024 6191-1-010 / / [id number] Tri[employer]lon Primary Tibial Baseplate Implanted:Qty: 1 on 01/14/2022 by Moises Souza MD at [facility] Right: Knee [employer] 10/15/2026 5520-B-400 / / [id number] Triathlon Cruciate Retaining Femoral Implanted:Qty: 1 on 01/14/2022 by Moises Souza MD at [facility] Right: Knee [employer] 11/12/2025 5510-F-402 / / [id number] Implnt Patellar [id number] Knee X3 Asymmetric [employer]lon - [id number] Implanted:Qty: 1 on 01/14/2022 by Moises Souza MD at [facility] Right: Knee [employer] 08/19/2026 5551-G-320 -E / / [id number] Cmnt Bone 40g Simplex P Non Atb Mv - [id number] Implanted:Qty: 1 on 01/14/2022 by Moises Souza MD at [facility] Right: Knee [employer] 05/01/2024 6191-1-010 / / [id number] Triathlon X3 Tibial Bearing Insert - [id number] Implanted:Qty: 1 on 01/14/2022 by Moises Souza MD at [facility] Right: Knee [employer] 10/02/2026 5531-G-410 -E / / [id number] Triathlon Cruciate Retaining Femoral Implanted:Qty: 1 on 01/13/2023 by Moises Souza MD at [facility] Left: Knee 11/07/2027 5510-F-401 / / [id number] Description:Triathlon Crucia te Retaining Femoral- Kim #4, Field Specialist Lft, Typ CR Insert Tib Sz 4 10mm Knee X3 Condylar Stabilizing [employer] - [id number] Implanted:Qty: 1 on 01/13/2023 by Moises Souza MD at [facility] Left: Knee [employer] 11/07/2027 5531-G-410 -E / / [id number] Cmnt Bone 40g Simplex P Non Atb Mv - [id number] Implanted:Qty: 2 on 01/13/2023 by Moises Souza MD at [facility] Left: Knee [employer] 04/01/2025 6191-1-010 / / [id number] Primary Tibial Baseplate Implanted:Qty: 1 on 01/13/2023 by Moises Souza MD at [facility] Left: Knee [employer] 11/25/2027 520-B-400 / / [id number] Description:Triathlon Primar y Tibial Baseplate Kim #[address] [place] [address] [place] [address] MEDICARE PART A HB ONLY MEDICARE PART [...] 8:20 AM 04/22/2016 12:04 PM Care Teams Supervisor Quilting Relationship Specialty Start Date End Date Anup Evans MD PCP - General Internal Medicine 01/29/23
--- OUTSIDE RECORDS SUMMARY | 2024-09-02 20:50 | XMS_ITS | CCD ---
Author Name Interface, [id number] Address [address] [place] [id number] [facility] Address [facility] [address] [address] Reason for Visit Encounters Medications Problems Social History
[2024-09-02 21:30] VITALS: BP 140/78; PULSE 78; RESP 24; TEMP 36.7
== END 2024-09-02 21:31 | disposition home or self-care (01) ==
PROVIDERS: Emergency Provider Emergency Medicine Emergency Medical Services
DX: J44.9 Chronic obstructive pulmonary disease, unspecified (principal); Z72.0 Tobacco use
CPT/HCPCS: 71046; 84484; 87637; 99284; J1100

== ENCOUNTER 2025-05-02 16:43 | Inpatient (IN) | payer MEDICARE, OTHER, SELFPAY ==
--- OUTSIDE RECORDS SUMMARY | 2025-05-01 18:57 | XMS_ITS | Encounter Summary ---
Author Organization [facility] Address [address], [place] [address] Care Team Providers Care Fur Liner Name Role Phone Anup Lenz MD Primary Care Provider Unavail able Reason for Referral * Consult/Transfer Care (Routine) - New Request Specialty Diagnoses / Procedures Referred By Leon trivedi Referred To Contact Diagnoses Urinary retention Edi Silvestre MD [address] [place] [address] Phone: tel: fax: Referral ID Status Reason Start Date Expiration Date V isits Requested Visits Authorized [id number] New Request 05/02/2025 08/01/2026 1 1 Scheduling Instructions Your clinician has recommended an appointment with [facility] You can quickly make your appointment online at [employer]/schedule. You can also call [phone] for help scheduling your appointment. We suggest you call your health insurance company about your coverage and benefits for this appointment. Question Answer Appointment Urgency? Within 1 week Outpatient Appt Need? Post Hospital Discharge [facility] * Consult/Transfer Care (Routine) - New Request Specialty Diagnoses / Procedures Referred By Leon trivedi Referred To Contact Diagnoses Diverticulitis Hypokalemia Urinary retention Edi Silvestre MD [address] [place] [address] Phone: tel: fax: Referral ID Status Reason Start Date Expiration Date V isits Requested Visits Authorized [id number] New Request 05/02/2025 07/31/2025 1 1 Scheduling Instructions Your clinician has recommended an appointment with [facility] for your ongoing patient care. You can quickly make your appointment online at [employer]/schedule. You can also call [phone] for help scheduling your appointment. We suggest you call your health insurance company about your coverage and benefits for this appointment. Question Answer Appointment Urgency? Within 2 days What type of follow up? ED Discharge Comments Primary Care Provider: Anup Lenz MD [facility] * Procedure/Equipment (Routine) - Incomplete Specialty Diagnoses / Procedures Referred By Contac t Referred To Contact Procedures CT Abd Pelvis W IV Cont Maria G Willis PA-C [address] [place] [address] Phone: tel: fax: Referral ID Status Reason Start Date Expiration Date V isits Requested Visits Authorized [id number] Incomplete 05/01/2025 07/31/2026 1 1 [facility] Reason for Visit * Reason Comments Constipation Encounter Details Date Type Department Care Team (Late st Contact Info) Description 05/01/2025 6:57 PM [facility] - 05/02/2025 2:10 AM [facility] [address] [place] [address] Edi Silvestre MD [address] [place] [address] Diverticulitis (Primary Dx); Hypokalemia; Urinary retention Discharge Disposition: Home Social History Tobacco Use Types Packs/Day Years Used Date Smoking Tobacco: Never Assessed Humiliation, Afraid, Rape, and Kick questionnair e Answer Date Recorded Within the last year, have y ou been afraid of your partner or ex-partner? No 05/02/2025 Within the last year, have y ou been humiliated or emotionally abused in other ways by your partner or ex-partner? No Within the last year, have y ou been kicked, hit, slapped, or otherwise physically hurt by your partner or ex-partner? No 05/02/2025 Within the last year, have y ou been raped or forced to have any kind of sexual activity by your partner or ex-partner? No 05/02/2025 Comments Unknown Sex and Gender Information Value Date Recorded Sex Assigned at Not on file Legal Sex Female 11:16 PM CDT Gender Identity Not on file Sexual Orientation Not on file documented as of this encounter Last Filed Vital Signs Vital Sign Reading Time Taken Comments Blood Pressure 140/74 05/02/2025 12:00 AM [facility] Pulse 70 05/02/2025 12:30 AM [facility] Temperature 36.4 C (97.6 F) 05/01/2025 8:09 PM [facility] Respiratory Rate 21 05/02/2025 12:30 AM [facility] Oxygen Saturation 97% 05/02/2025 12:30 AM [facility] Inhaled Oxygen Concentration - - Weight - - Height - - Body Mass Index - - documented in this encounter Discharge Instructions * Discharge Instructions* Edi Silvestre MD - 05/02/2025 1:43 AM [facility] Please follow up with your primary care physician as discussed, a referral has been placed for you.Please return to the ED if you develop any new or worsening symptoms. Please take scheduled Tylenol and ibuprofen for pain over the next 2-3 days. Dosing for Tylenol is 1000 mg every 6 hours (do not exceed more than 4000 mg in a 24 hour period) and dosing for ibuprofenis 600 mg every 6 hours. You can take one or the other every three hours while awake (such that each is taken every six hours). For example, if you take Tylenol when you get home, then you would takeibuprofen 3 hours later followed by another dose of Tylenol 3 hours after that. As we discussed. I would also recommend restarting the MiraLax and taking a cap full of this every day in addition to or other bowel regimen that you has been doing prior based off GI recommendations. You can discuss with your primary care physician when he follow up to have your potassium rechecked to determine if an additional medication as needed. [facility] * Attachments The following attachments cannot be sent through Care Everywhere. * Diverticulitis (Anguillan) * Hypokalemia (Anguillan) * Indwelling Urinary Catheter Care: General Info (Anguillan) documented in this encounter Medications at Time of Discharge amoxicillin-clavulan ate (AUGMENTIN) 875-125 mg per tabletIndications:Di verticulitis Take 1 Tablet (875 mg of amoxicillin) by mouth two times a day for 10 days. 20 Tablet 05/02/2025 2:03 AM [facility] 05/02/2025 ondansetron (ZOFRAN-ODT) 4 MG disintegrating tabletIndications:Di verticulitis Dissolve 1 Tablet (4 mg) by mouth every 8 hours as needed for Nausea. 10 Tablet 05/02/2025 2:03 AM [facility] 05/02/2025 unknown medication Indications: PN: 03/10/2008 unknown medication Indications: PN: 12/10/2007 documented as of this encounter ED Notes * Promise Feliz RN - 05/02/2025 1:58 AM CST ED Nursing Discharge Note Arrival Information: Patient arrived: Ambulance Patient escorted by: EMS/Ambulance Discharge Information: Patient Accompanied By: Family member/relative Transport Mode: Walk Discharge Disposition: Home Discharge Instructions given and explained to patient: Follow up appointments reviewed, Patient is appropriately dressed for weather, New discharge prescriptions explained LDA in place: Peripheral IV 05/01/25 20 G Proximal;Right median vein (Active) Patient/family/legal pharmaceutical specialty representative in agreement with discharge plan? Does patient require hand-off or assistance with discharge plan: No Belongings and medication returned to patient and prompted to retrieve weapons: Yes Patient level of pain on discharge: (0-10) Pain Rating: Rest: 8 Holds documented by nursing during this visit - reviewed chart for most current hold status: Yes Legal Status Orders (From admission, onward) None [facility] * Medina Younger RN - 05/02/2025 1:29 AM CST De Paz inserted by x2 RN. Patient education provider on catheter care. Patient having difficulty understanding management and care of de paz. Patient encouraged to consider staying in hospital for assistance with management and care. Patientcontinues to refuse, and is not willing to consider hospital stay. Patient son, reports his and daughter are both nurses and able to assist with management and care of de paz. Patient reports she living downstairs in the same home as her son. Provider notified [facility] * Medina Younger RN - 05/01/2025 11:38 PM CST Received report and assumed care from Monique Ordonez RN [facility] * Maria G Willis PA-C - 05/01/2025 7:09 PM CST Emergency Medicine Visit Note Chief Complaint: Constipation HPI 85 y.o. who has COPD, hypertension, uterine mass, here with abdominal pain, vomiting. Patient reports 2-3 days of constipation. This morning attempted to suppositories without any relief. Has not been passing gas. 2-3 hours prior to arrival developed sudden onset severe abdominal pain, vomiting. Did have some brown color in the emesis. Reports history of cholecystectomy. No history of bowel obstruction. Received Zofran, Toradol from medics. Denies fevers, chest pain, shortness of breath. No other complaints at this time. Triage Vitals [05/01/25 1837] Temp Temp src Pulse 63 Resp 18 BP 125/58 SpO2 100 % Physical Exam General: Intermittently retching, appears uncomfortable. Eyes: pupils mid-sized, sclera normal appearing HENT: head atraumatic, facial structures symmetric, external ears normal appearing, no rhinorrhea Cardiovascular: RRR, peripheral pulses regular Respiratory: normal work of breathing, chest clear with equal lung sounds bilaterally, no wheezes or crackles GI: abdomen nondistended. Generalized abdominal tenderness to palpation. No bowel sounds heard. Musculoskeletal: normal appearing extremities, normal ROM of major joints intact, neck supple and moving freely Skin: warm and dry, skin color normal Neuro: alert and conversant, speech clear, packaging designer grossly intact, moving all 4 extremities spontaneously Psychiatric: affect/mood normal, cooperative MDM: Patient is a 85-year-old female who presents for evaluation of abdominal pain, vomiting. Vitals here reassuring. Exam as documented above. History and exam most concerning for bowel obstruction.Also considered intra-abdominal infection, ACS, among others. Plan for labs, CT scan, pain and nausea control. Disposition pending. Maria G Willis PA-C ED Course as of 05/02/25 0145 Sun May 01, 20251947 ECG 12-Lead STAT (EKG) Per my interpretation, normal sinus rhythm. No ST-elevation or depression. No T- wave changes concerning for ischemia. [JJ] 1948 Complete Blood Count -no Diff(!) Leukocytosis. No anemia or thrombocytopenia [JJ] 1958 ATTENDING: I personally saw the patient, performed jackson elements of the visit, and supervised patient care with the area manager. MDM: Constipation without flatus x2 days. Sudden onset abdominal pain, vomiting. Previous abdominal surgeries. Obtaining labs and CT imaging. [BS] 2008 Liver Panel (Hepatic Function Panel)(!) Reassuring against acute biliary process [JJ] 2008 Lipase(!): 116 Elevated lipase, likely in setting of emesis, is receiving fluids [JJ] 2029 Basic Metabolic Panel(!) Hypokalemia, mild hyponatremia. Potassium replacement ordered [JJ] 2116 Rechecked patient and updated on results. Patient appears much more comfortable. Awaiting CT scan. [JJ] 2322 CT Abd Pelvis W IV Cont IMPRESSION: 1. Colonic diverticulosis. Colonic thickening and pericolonic fat stranding at the distal descending colon, compatible with acute uncomplicated diverticulitis. 2. No bowel obstruction. 3. Normal appendix. [BS] 2334 Reassessed patient. Discussed results of her CT imaging. Discussed with her having difficulty with having a bowel movement over past couple of days, there does appear to be stool within the rectal vault. Patient is reportedly taking senna and Dulcolax for the past month for her constipation. Had seen GI just prior to this. We discussed risks and benefits of a manual disimpaction to see if this helps stimulate a bowel movement as she is not able to have 1 here. We will also give further potassium replacement with no obstruction. [BS] 2352 After verbal consent again obtained for attempt of disimpaction, patient was placed into rightlateral decubitus and nurse autocad technician at bedside. With digital insertion, stool encountered and rectal vault, fairly proximal from the anus. Attempted to lately disimpact but patient felt that this was too uncomfortable in the procedure was stopped per her request. Will attempt p.o. challenge and give potassium replacement. [BS] FriMay 02, 2025 0003 UA Conditional UC: Clean Catch(!) No evidence of infection [BS] 0027 Reassessed patient. Tolerating potassium without difficulty. We discussed wanting her to follow up with her primary care physician within the next couple of days for recheck. At this time with pain otherwise controlled, no evidence of any complications on CT, tolerating orals, do feel that trial of outpatient treatment of her diverticulitis would be appropriate. Will provide Augmentin for antibiotics. We will use Tylenol and ibuprofen at home for pain. Will provide Zofran for any nausea. Additionally, we discussed restarting MiraLax, continuing with her senna and Dulcolax, and attemptingto add prunes to her bowel regimen. Can discuss additional medications with her primary at follow up. Prior to discharge, will ensure not retaining urine as patient is frequently having to urinate here recently. [BS] 0039 Patient with 267 cc of urine postvoid. We discussed straight catheterization and trial of voidversus De Paz catheter. At this time, patient would like to just proceed with De Paz. Son at bedside in agreement. Did discuss observation in hospital with additional information given her age and diver ticulitis. Very much prefers to go home and will be able to help with the catheter at home. [BS] 0143 De Paz catheter placed without difficulty but patient is expressing that it is uncomfortable. We discussed that we can remove this but then I would like to observe her for further period of time to ensure not having any retention. I discussed again admitting her for further observation but she has adamantly against this, in his requesting to keep the De Paz in and just go home. We discussed the risks and benefits of this with son at bedside. At this time, do feel that she is able to make herown decisions. Son is in agreement with the plan. Return precautions discussed. All questions answered. Patient discharged in stable condition. [BS] ED Course User Index [BS] Edi Silvestre MD [JJ] Maria G Willis PA-C Clinical Impressions as of 05/02/25 0145 Diverticulitis Hypokalemia Urinary retention [facility] documented in this encounter Plan of Treatment Scheduled Referrals Name Type Priority Associated Diagnoses Orde r Schedule Primary Care Follow-Up Referral Routine Diverticulitis Hypokalemia Urinary retention Ordered: 05/02/2025 Urology Consult-Adults Post Hospital Discharge Referral Routine Urinary retention Ordered: 05/02/2025 documented as of this encounter Procedures Procedure Name Priority Date/Time Associated Diagnosis Comments UA CONDITIONAL UC STAT 05/01/2025 11: [address] [address] ABD PELVIS W IV CONT STAT 05/01/2025 10:18 PM [facility] ECG-ROUTINE 12 LEAD; INTRPT & REPRT STAT 05/01/2025 7:26 PM [facility] LIVER PANEL(HEPATIC FUNCTION PANEL) STAT 05/01/2025 7:26 PM [facility] BASIC METABOLIC PANEL STAT 05/01/2025 7:26 PM [facility] COMPLETE BLOOD COUNT-NO DIFF STAT 05/01/2025 7:26 PM [facility] MAGNESIUM STAT Add-On 05/01/2025 7:26 PM [facility] LIPASE STAT 05/01/2025 7:26 PM [facility] documented in this encounter Results * (ABNORMAL) UA Conditional UC: Clean Catch (05/01/2025 11:43 PM [facility]) Urine Culture Comment Urinalysis results do not meet criteria for urine culture reflex. 05/02/2025 12:00 AM [facility] Urine Color Light-Yellow 05/02/2025 12:00 AM [facility] Urine Clarity Clear Clear 05/02/2025 12:00 AM [facility] Specific [place], Urine >1.050(H) <1.030 05/02/2025 12:00 AM [facility] Comment:The Specific gravity may be falsely elevated due to the presence of x- ray contrast media, high molecular weight drugs, protein OVER (>600) or Glucose OVER (>1000). If results needed contact lab to have specific gravity performed by alternate method. PH Urine 6.0 5.0 - 8.0 05/02/2025 12:00 AM [facility] Protein Negative Negative, 10 , 20 mg/dL 05/02/2025 12:00 AM [facility] Glucose Normal (Negative) Normal (Negative), 30 , 50 mg/dL 05/02/2025 12:00 AM [facility] Ketones Negative Negative, Trace mg/dL 05/02/2025 12:00 AM [facility] Urobilinogen Normal (Negative) Normal (Negative) EU/dL 05/02/2025 12:00 AM [facility] Bilirubin Negative Negative mg/dL 05/02/2025 12:00 AM [facility] Blood, Urine (mg/dL) 0.10 (Small)(A) Negative, 0.03 (Trace) 05/02/2025 12:00 AM [facility] Nitrite Urine Negative Negative 05/02/2025 12:00 AM [facility] Leukocyte Esterase Negative Negative, 25 (Trace) MAYA/uL 05/02/2025 12:00 AM [facility] Red Blood Cells 0 0 - 3 /HPF 12:00 AM [facility] White Blood Cells 4 0 - 5 /HPF 05/02/2025 12:00 AM [facility] Squamous Epithelial Cells Occasional None Seen, Occasional, Few /HPF 05/02/2025 12:00 AM [facility] Source Clean Catch 05/02/2025 12:00 AM [facility] Urine URINE SPECIMEN COLLECTION, CLEAN CATCH / Unknown Non-blood Collection / Unknown 05/01/2025 11:43 PM [facility] 05/01/2025 11:48 PM [facility] Narrative [facility] - 05/02/2025 12:00 AM [facility] The qualitative interpretive guidance provided (e.g., small, moderate, large) is intended to aid in quantitative result interpretation. It is not itself an FDA-cleared test result. us Maria G Willis PA-C LAB_1 Final Res ult [facility] CLIA: [id number] [address] [place] [address] * CT Abd Pelvis W IV Cont (05/01/2025 10:18 PM [facility]) Anatomical Region Laterality Modality Abdomen, Pelvis Computed Tomogra phy 05/01/2025 10:1 8 PM [facility] Narrative 05/01/2025 11:17 PM [facility] EXAM: CT ABD PELVIS W IV CONT LOCATION: [facility] DATE: 05/01/2025 INDICATION: Concern for bowel obstruction. Abdominal pain, vomiting COMPARISON: CT abdomen/pelvis with contrast 02/26/2022 TECHNIQUE: Helical enhanced CT scan of the abdomen and pelvis was performed following injection of IV contrast. Multiplanar reformats were obtained. Dose reduction techniques were used. CONTRAST: IOHEXOL 350 MG/ML IV SOLN 100 mL FINDINGS: LOWER CHEST: Mild bibasilar atelectasis. HEPATOBILIARY: Hepatic steatosis. Cholecystectomy. Cystic duct is incidentally noted to have a low medial insertion. Intra and extrahepatic bile duct dilatation which is stable as compared to 2021 and which is favored to be due to reservoir effect and advanced age. PANCREAS: Normal. SPLEEN: Normal. ADRENAL GLANDS: Normal. KIDNEYS/BLADDER: Renal sinus cysts which require no dedicated follow-up. Unremarkable urinary bladder. BOWEL: Colonic diverticulosis. Colonic thickening and pericolonic fat stranding at the distal descending colon. Tiny periampullary duodenal diverticulum. No bowel obstruction. Normal appendix. LYMPH NODES: Normal. VASCULATURE: Atherosclerotic calcifications of the aortoiliac vessels without evidence of aneurysmal dilatation. PELVIC ORGANS: Unremarkable. MUSCULOSKELETAL: Multilevel degenerative changes of the thoracic and lumbosacral spine. No acute osseous abnormality. IMPRESSION: 1. Colonic diverticulosis. Colonic thickening and pericolonic fat stranding at the distal descending colon, compatible with acute uncomplicated diverticulitis. 2. No bowel obstruction. 3. Normal appendix. Procedure Note Anup Biggs MD - 05/01/2025 EXAM: CT ABD PELVIS W IV CONT LOCATION: [facility] DATE: 05/01/2025 INDICATION: Concern for bowel obstruction. Abdominal pain, vomiting COMPARISON: CT abdomen/pelvis with contrast 02/26/2022 TECHNIQUE: Helical enhanced CT scan of the abdomen and pelvis wasperformed following injection of IV contrast. Multiplanar reformats wereobtained. Dose reduction techniques were used. CONTRAST: IOHEXOL 350 MG/ML IV SOLN 100 mL FINDINGS: LOWER CHEST: Mild bibasilar atelectasis. HEPATOBILIARY: Hepatic steatosis. Cholecystectomy. Cystic duct isincidentally noted to have a low medial insertion. Intra and extrahepaticbile duct dilatation which is stable as compared to 2021 and which isfavored to be due to reservoir effect and advanced age. PANCREAS: Normal. SPLEEN: Normal. ADRENAL GLANDS: Normal. KIDNEYS/BLADDER: Renal sinus cysts which require no dedicated follow- up.Unremarkable urinary bladder. BOWEL: Colonic diverticulosis. Colonic thickening and pericolonic fatstranding at the distal descending colon. Tiny periampullary duodenaldiverticulum. No bowel obstruction. Normal appendix. LYMPH NODES: Normal. VASCULATURE: Atherosclerotic calcifications of the aortoiliac vesselswithout evidence of aneurysmal dilatation. PELVIC ORGANS: Unremarkable. MUSCULOSKELETAL: Multilevel degenerative changes of the thoracic andlumbosacral spine. No acute osseous abnormality. IMPRESSION: 1. Colonic diverticulosis. Colonic thickening and pericolonic fatstranding at the distal descending colon, compatible with acuteuncomplicated diverticulitis. 2. No bowel obstruction. 3. Normal appendix. us Maria G Willis PA-C RAD CT Final Res ult * ECG 12-Lead STAT (EKG) (05/01/2025 7:26 PM [facility]ING [facility]) Ventricular Rate 55 BPM [facility] Atrial Rate 55 BPM [facility] P-R Interval 222 ms MUSE [facility] QRS Duration 106 ms MUSE [facility] QT 450 ms MUSE [facility] QTC 430 ms MUSE [facility]HP P [place] 66 degrees MUSE GHP R [place] 9 degrees MUSE GHP T [place] 42 degrees MUSE GHP 05/01/2025 7:26 PM [facility] Narrative [facility] - 05/02/2025 7:31 AM [facility] Sinus bradycardia with 1st degree A-V block Incomplete right bundle branch block Borderline ECG When compared with ECG of 19-Oct-2007 08:39, [place] interval has increased Confirmed by Emery Evangelista ([id number]) on 05/02/2025 7:31:46 AM Procedure Note Emery Evangelista MD - 05/02/2025 Sinus bradycardia with 1st degree A-V block Incomplete right bundle branch block Borderline ECG When compared with ECG of 19-Oct-2007 08:39, [place] interval has increased Confirmed by Emery Evangelista ([id number]) on 05/02/2025 7:31:46 AM us Maria G Willis PA-C EKG Final Res ult Performing Organization Address City/[facility]/ZIP Co de Phone Number [facility] [address] [place] [address] * Magnesium (05/01/2025 7:26 PM [facility]INING RO[facility]) Magnesium 1.9 1.6 - 2.6 mg/dL 05/01/2025 8:45 PM [facility] Blood Venipuncture / Unknown 05/01/2025 7:26 PM [facility] 05/01/2025 7:30 PM [facility] us Edi Silvestre MD LAB_1 Final Result [facility] CLIA: [id number] [address] [place] [address], [facility] * (ABNORMAL) Lipase (05/01/2025 7:26 PM [facility]) Lipase 116(H) <=60 U/L 05/01/2025 8:00 PM [facility] Blood Venipuncture / Unknown 05/01/2025 7:26 PM [facility] 05/01/2025 7:30 PM [facility] Maria G Willis PA-C LAB_1 Final Res ult Performing Organization Address [facility] Co de Phone Number [facility] CLIA: [id number] [address] [place] [address] * (ABNORMAL) Liver Panel (Hepatic Function Panel) (05/01/2025 7:26 PM [facility]OM [facility]) [facility] Alkaline Phosphatase 81 40 - 150 U/L 05/01/2025 8:00 PM [facility] Bilirubin, Total 0.7 0.2 - 1.2 mg/dL 05/01/2025 8:00 PM [facility] Bilirubin, Direct 0.3 0.0 - 0.5 mg/dL 05/01/2025 8:00 PM [facility] AST (SGOT) 30 16 - 46 U/L 05/01/2025 8:00 PM [facility] ALT (SGPT) 19 0 - 55 U/L 05/01/2025 8:00 PM [facility] Protein, Total 6.3(L) 6.4 - 8.3 g/dL 05/01/2025 8:00 PM [facility] Albumin 3.7 3.5 - 5.0 g/dL 05/01/2025 8:00 PM [facility] Blood Venipuncture / Unknown 05/01/2025 7:26 PM [facility] 05/01/2025 7:30 PM [facility] Maria G Willis PA-C LAB_1 Final Res ult [facility] CLIA: [id number] [address] [place] [address] * (ABNORMAL) Complete Blood Count -no Diff (05/01/2025 7:26 PM DINING ROOM BUSSER) Pathologist [facility] WBC 13.6(H) 3.5 - 10.5 x10(9)/L 05/01/2025 7:37 PM [facility] RBC 4.48 3.90 - 5.03 x10(12)/L 05/01/2025 7:37 PM [facility] Hemoglobin 13.6 12.0 - 15.5 g/dL 05/01/2025 7:37 PM [facility] HCT 39.3 34.9 - 44.5 % 05/01/2025 7:37 PM [facility] MCV 87.7 80.0 - 100.0 fL 05/01/2025 7:37 PM [facility] MCH 30.4 27.6 - 33.3 pg 05/01/2025 7:37 PM [facility] MCHC 34.6 31.5 - 35.2 g/dL 05/01/2025 7:37 PM [facility] RDW 12.3 11.9 - 15.5 % 05/01/2025 7:37 PM [facility] Platelets 203 150 - 450 x10(9)/L 05/01/2025 7:37 PM [facility] Automated NRBC 0 <=0 /100 WBC 05/01/2025 7:37 PM [facility] Blood Venipuncture / Unknown 05/01/2025 7:26 PM [facility]OM [facility]ER 05/01/2025 7:30 PM DINING ROOM BUSSER us Maria G Willis PA-C LAB_1 Final Res ult [facility] CLIA: [id number] [address] [place] [address] * (ABNORMAL) Basic Metabolic Panel (05/01/2025 7:26 PM [facility]INING ROOM BUSSER) Sodium 135(L) 136 - 145 mmol/L 05/01/2025 8:18 PM [facility] Potassium 2.8(L) 3.5 - 5.1 mmol/L 05/01/2025 8:18 PM [facility] Chloride 100 98 - 109 mmol/L 05/01/2025 8:18 PM [facility] CO2 25 20 - 29 mmol/L 05/01/2025 8:18 PM [facility] Anion Gap 10 6 - 16 mmol/L 05/01/2025 8:18 PM [facility] Calcium 9.6 8.4 - 10.4 mg/dL 05/01/2025 8:18 PM [facility] BUN 10 7 - 26 mg/dL 05/01/2025 8:18 PM [facility] Creatinine 1.10(H) 0.55 - 1.02 mg/dL 05/01/2025 8:18 PM [facility] Glucose 148(H) 70 - 100 mg/dL 05/01/2025 8:18 PM [facility] Comment:The given reference range is for the fasting state. Non-fasting reference range for glucose is 70 - 180 mg/dL. GFR, Estimated 49(L) >60 mL/min/1.7 3m2 05/01/2025 8:18 PM [facility] Blood Venipuncture / Unknown 05/01/2025 7:26 PM [facility] 05/01/2025 7:30 PM [facility] - 05/01/2025 8:18 PM DINING ROOM [facility]ER The National Kidney Disease Education Program suggests measuring Cystatin C in patients with eGFRcrea of 45 to 59 ml/min/1.73^2 who do not have other markers of kidney damage (i.e. elevated urine Albumin/Creatinine Ratio or a prior Cystatin C confirming the presence of chronic kidney disease). us Maria G Willis PA-C LAB_1 Final Res ult [facility] CLIA: [id number] [address] [place] [address] documented in this encounter Visit Diagnoses Diagnosis Diverticulitis- Primary Diverticulitis of colon (without mention of hemorrhage) Hypokalemia Hypopotassemia Urinary retention Retention of urine, unspecified * Triage Assessment Note - Deepali Wheat RN - 05/01/2025 6:37 PM [facility] ROOM [facility]USSER Chief complaint: Constipation Symptoms/background/relevant history (narrative): C/o no BM for 5 days. Pt is actively vomiting in triage, is pale, and weak. Pt is not passing gas. Unable to obtan temp in triage due to vomiting What is most important to you about your ER visit today? Eval NG ROOM BUSSER * Triage Assessment Note - Armida Trivedi RN - 05/01/2025 6:27 PM [facility] ROOM [facility] Patient arrived by [facility] from home with chief complaint: Constipation Symptoms/background (EMS narrative): Patient comes in today with 5 days of constipation. Has been doing rectal suppositories and oral stool softeners. Sudden onset of abdominal pain rating it at a 10/10. EMS states that patient does not have bowel sounds in upper abdomen. Gave 10mg of Toradol with relief. Also got mg of zofran Interventions/abnormal vitals: FSG 196. BP 176/80. NG ROOM BUSSER documented in this encounter Administered Medications Inactive Administered Medications - up to 3 most recent administrations Medication Order MAR Action Action Date Dose Rate Site HYDROmorphone (DILAUDID) injection 0.5 mg 0.5 mg, Intravenous, ONCE, On 05/01/25 at 1930, For 1 dose Given 05/01/2025 7:18 PM [facility] RO[facility] 0.5 mg lidocaine (UROJET) 2 % gel prefilled syringe Urethral, PRN WITH PROCEDURES, Local Anesthetic, Prior to intermittent straight cath or indwelling urethral catheter placement for pain relief and/or lubrication, Starting on Fri05/02/25 at 0040, Administer 3-5 mL for females and 5-10mL for males as needed for anesthetic effect prior to procedure Strongly recommend utilizing Coud tipped catheter and PRN Urojet for patients with a prostate age 50 and older.Indications:Local Anesthesia,For use prior to indwelling De Paz catheter placement potassium bicarbonate-citric acid (EFFER-K) effervescent tablet 40 mEq 40 mEq, Oral, ONCE, On Fri05/02/25 at 0000, For 1 dose, Dissolve tablets completely in 3 to 4 ounces of cold/ice water or juice. May further dilute if GI adverse effects occur. May take 3-4 minutes to completely dissolve. Given 05/01/2025 11:59 PM [facility] RO[facility]USSER 40 mEq potassium chloride 10 mEq/100 mL IVPB 10 mEq, Intravenous, Administer over 60 Minutes, ONCE, On 05/01/25 at 2045, For 1 dose Started 05/01/2025 9:12 PM [facility] 10 mEq 100 mL/hr prochlorperazine (COMPAZINE) injection 10 mg 10 mg, Intravenous, ONCE, On 05/01/25 at 1930, For 1 dose, Administer slow IV push over 2-5 minutes to reduce the risk of akathisia and dystonic reactions. Do not push faster than 5 mg/min Given 05/01/2025 7:05 PM [facility] 10 mg sodium chloride 0.9% bolus 1,000 mL 1,000 mL, Intravenous, ONCE, Administer over 0.5 Hours, On 05/01/25 at 1930, For 1 dose Started 05/01/2025 7:13 PM [facility] RO[facility] 1,000 mL documented in this encounter Active and Recently Administered Medications Times are shown in [facility]INING ROOM BUSSER. Scheduled Medication Order 04/30/2025 05/01/2025 05/02/2025 HYDROmorphone (DILAUDID) injection 0.5 mg (COMPLETED) 0.5 mg, Intravenous, ONCE, On 05/01/25 at 1930, For 1 dose 1917 (Given - Provider: Monique Kim RN) potassium bicarbonate-citric acid (EFFER-K) effervescent tablet 40 mEq (COMPLETED) 40 mEq, Oral, ONCE, On Fri05/02/25 at 0000, For 1 dose, Dissolve tablets completely in 3 to 4 ounces of cold/ice water or juice. May further dilute if GI adverse effects occur. May take 3-4 minutes to completely dissolve. 2358 (Given - Provider: Medina Younger RN) potassium chloride 10 mEq/100 mL IVPB (COMPLETED) 10 mEq, Intravenous, Administer over 60 Minutes, ONCE, On 05/01/25 at 204, For 1 dose 2111 (Started - Provider: Monique Kim RN)2358 (Stopped - Provider: Medina Younger RN) prochlorperazine (COMPAZINE) injection 10 mg (COMPLETED) 10 mg, Intravenous, ONCE, On 05/01/25 at 1930, For 1 dose, Administer slow IV push over 2-5 minutes to reduce the risk of akathisia and dystonic reactions. Do not push faster than 5 mg/min 1904 (Given - Provider: Monique Kim RN) sodium chloride 0.9% bolus 1,000 mL (COMPLETED) 1,000 mL, Intravenous, ONCE, Administer over 0.5 Hours, On 05/01/25 at 1930, For 1 dose 1912 (Started - Provider: Monique Kim RN)2111 (Stopped - Provider: Monique Kim RN) PRN Medication Order 04/30/2025 05/01/2025 05/02/2025 lidocaine (UROJET) 2 % gel prefilled syringe Urethral, PRN WITH PROCEDURES, Local Anesthetic, Prior to intermittent straight cath or indwelling urethral catheter placement for pain relief and/or lubrication, Starting on Fri05/02/25 at 0040, Administer 3-5 mL for females and 5-10mL for males as needed for anesthetic effect prior to procedure Strongly recommend utilizing Coud tipped catheter and PRN Urojet for patients with a prostate age 50 and older. documented in this encounter Care Teams Fur Liner Relationship Specialty Start Date End Date Anup Lenz MD PCP - General 09/04/10 documented as of this encounter
--- OUTSIDE RECORDS SUMMARY | 2025-05-01 21:00 | XMS_ITS | Encounter Summary ---
[facility] Address [address], [place] [address] Care Team Providers Care Welt Sole Layer Name Role Phone Anup Lenz MD Primary Care Provider Unavail able Reason for Visit * Procedure/Equipment (Routine) - Incomplete Specialty Diagnoses / Procedures Referred By Leon trivedi Referred To Contact Procedures CT Abd Pelvis W IV Cont Maria G Willis, AAKASH [address] [place] [address] Phone: tel: fax: Referral ID Status Reason Start Date Expiration Date V isits Requested Visits Authorized [id number] Incomplete 05/01/2025 07/31/2026 1 1 Encounter Details Date Type Department Care Team (Late st Contact Info) Description 05/01/2025 9:00 PM REAL ESTATE BROKER ASSOCIATE Ancillary Procedure [facility] [address] [place] [address] Social History Tobacco Use Types Packs/Day Years [...] on file documented as of this encounter Procedures Procedure Name Priority Date/Time Associated Diagnosis Comments CT ABD PELVIS W IV CONT STAT 05/01/2025 10:18 PM [employer] ESTATE BROKER ASSOCIATE documented in this encounter Visit Diagnoses Not on filedocumented in this encounter Administered Medications Inactive Administered Medications - up to 3 most recent administrations Medication Order MAR Action Action Date Dose Rate Site iohexol (OMNIPAQUE 350) 350 MG/ML injection 100 mL 100 mL, Intravenous, ONCE (NON-SCHEDULED), Starting on 05/01/25 at 2218, Until 05/02/25 at 0217, For 4 hours Given 05/01/2025 10:19 PM [employer] ESTATE BROKER ASSOCIATE 100 mL documented in this encounter Care Teams Welt Sole Layer Relationship Specialty Start Date End Date Anup Lenz MD PCP - General 09/04/10 documented as of this encounter
--- OUTSIDE RECORDS SUMMARY | 2025-05-02 13:49 | XMS_ITS | Encounter Summary ---
Author Organization [facility] Address [address] [place], [place] [address] [address] Care Team Providers Care Shipping And Receiving Material Handler Name Role Phone Melchor Leon MD Primary Care Provider [phone] Reason for Visit * Reason Comments Constipation Chest tightness Vomiting Encounter Details Date Type Department Care Team (Late st Contact Info) Description 05/02/2025 1:49 PM [facility] Emergency [facility] Emergency Department [address] [place] [address] [place], [place] [address] Social History Tobacco Use Types Packs/Day Years Used Date Smoking Tobacco: Every Day Cigarettes 1 72.4 Started: 11/28/1952 Smokeless Tobacco: Never Comments:06/05 PPD [id number]- NOW DT, MINT 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 DEPOSITOR 12/18/2022 Alcohol Use Standard Drinks/Week Comments Not [...] AM CDT Sexual Orientation Not on file documented as of this encounter Last Filed Vital Signs Vital Sign Reading Time Taken Comments Blood Pressure 144/68 05/02/2025 2:14 PM FLOATLIGHT LOADING SUPERVISOR Pulse 65 05/02/2025 2:14 PM FLOATLIGHT LOADING SUPERVISOR Temperature 36.9 C (98.4 F) 05/02/2025 2:14 PM FLOATLIGHT LOADING SUPERVISOR Respiratory Rate 16 05/02/2025 2:14 PM FLOATLIGHT LOADING SUPERVISOR Oxygen Saturation 100% 05/02/2025 2:14 PM FLOATLIGHT LOADING SUPERVISOR Inhaled Oxygen Concentration - - Weight - - Height 157.5 cm (5' 2) 05/02/2025 2:14 PM FLOATLIGHT LOADING SUPERVISOR Body Mass Index - - documented in this encounter ED Notes * Genesis Altman RN - 05/02/2025 2:12 PM CST Pt recently seen at [facility] ER last night for constipation x 2-3 days. Pt also reports she was urinating every 3-4 mins and was told the constipation was pressing against her bladder and so a foleywas placed. Pt was encouraged to be admitted at [facility] for de paz care but declined due to family members being nurses who could help her. Pt also dx with diverticulitis there. Today, pt is having increased upper abd pain, constipation. Pt very uncomfortable in triage, moaning and rocking bath and forth. TLIGHT LOADING SUPERVISOR documented in this encounter Plan of Treatment Pending Results Name Type Priority Associated Diagnoses Date /Time EKG EKG STAT 05/02/2025 2:1 8 PM FLOATLIGHT LOADING SUPERVISOR Extra Tube-EDTA (Lab Use Only) LabOnly STAT 05/02/2025 2:24 PM FLOATLIGHT LOADING SUPERVISOR Extra Tube-Coag (Lab Use Only) LabOnly STAT 05/02/2025 2:24 PM FLOATLIGHT LOADING SUPERVISOR Scheduled Orders Name Type Priority Associated Diagnoses Orde r Schedule Extra Tube-Blood Bank (Lab Use Only) LabOnly Routine STAT for 1 Occur rences starting 05/02/2025 until 05/02/2025 Extra Tube-EDTA (Lab Use Only) LabOnly Routine STAT for 1 Occur rences starting 05/02/2025 until 05/02/2025 Extra Tube-SST (Lab Use Only) LabOnly Routine STAT for 1 Occur rences starting 05/02/2025 until 05/02/2025 Extra Tube-Coag (Lab Use Only) LabOnly Routine STAT for 1 Occur rences starting 05/02/2025 until 05/02/2025 Urinalysis Macroscopic w/ Microscopy, if indicated (Does not inc culture) Lab STAT STAT for 1 Occur rences starting 05/02/2025 until 05/02/2025 documented as of this encounter Procedures Procedure Name Priority Date/Time Associated Diagnosis Comments LIPASE STAT 05/02/2025 2:24 PM FLOATLIGHT LOADING SUPERVISOR LIVER PROFILE STAT 05/02/2025 2:24 PM FLOATLIGHT LOADING SUPERVISOR BASIC METAB PROFILE STAT 05/02/2025 2 :24 PM FLOATLIGHT LOADING SUPERVISOR CBC (HGB,HCT,WBC,RBC,PLATELET ) STAT 05/02/2025 2:24 PM FLOATLIGHT LOADING SUPERVISOR EXTRA TUBE PST STAT 05/02/2025 2:24 PM FLOATLIGHT LOADING SUPERVISOR ELECTROCARDIOGRAM STAT 05/02/2025 2:1 8 PM FLOATLIGHT LOADING SUPERVISOR documented in this encounter Results * Lipase (05/02/2025 2:24 PM FLOATLIGHT LOADING SUPERVISOR) Lipase 41 12 - 53 U/L 05/02/2025 3:09 PM FLOATLIGHT LOADING SUPERVISOR [facility] Blood 05/02/2025 2:24 PM FLOATLIGHT LOADING SUPERVISOR 05/02/2025 2:43 PM FLOATLIGHT LOADING SUPERVISOR us Poli Catalan MD CHEMISTRY ORDERABLE Final Result [facility] [address] [place], [place] [id number] * Liver Profile (05/02/2025 2:24 PM FLOATLIGHT LOADING SUPERVISOR) Pathologist [facility] ALT 24 7 - 40 U/L 05/02/2025 3:28 PM [facility] Alkaline Phosphatase 86 46 - 116 U/L 05/02/2025 3:28 PM [facility] AST (SGOT) 26 13 - 40 U/L 05/02/2025 3:28 PM [facility] Protein Total 6.7 5.7 - 8.2 g/dL 05/02/2025 3:28 PM [facility] Albumin 4.2 3.4 - 5.0 g/dL 05/02/2025 3:28 PM [facility] Bilirubin-Direct 0.36 <0.40 mg/dL 05/02/2025 3:28 PM [facility] Bilirubin-Total 1.10 0.30 - 1.20 mg/dL 05/02/2025 3:28 PM [facility] Blood 05/02/2025 2:24 PM FLOATLIGHT LOADING SUPERVISOR 05/02/2025 2:43 PM [facility] us Poli Catalan MD CHEMISTRY ORDERABLE Final Result [facility] [address] [place] [address] * (ABNORMAL) Basic Metab Profile (05/02/2025 2:24 PM FLOATLIGHT LOADING SUPERVISOR) Pathologist [facility] Sodium 139 136 - 145 mmol/L 05/02/2025 3:09 PM [facility] Potassium 3.2(L) 3.4 - 5.1 mmol/L 05/02/2025 3:09 PM [facility] Chloride 103 98 - 108 mmol/L 05/02/2025 3:09 PM [facility] Carbon Dioxide 26 20 - 31 mmol/L 05/02/2025 3:09 PM [facility] BUN (Urea Nitro) 7(L) 9 - 23 mg/dL 05/02/2025 3:09 PM [facility] Creatinine 1.02 0.55 - 1.02 mg/dL 05/02/2025 3:09 PM [facility] Est GFR (CKD-EPI) 54.02(L) >60.00 mL/min/1. 73m2 05/02/2025 3:09 PM [facility] Comment:Calculation based on the Chronic Kidney Disease Epidemiology Collaboration (CKD-EPI 2020) equation refit without adjustment for race. Glucose 140(H) 74 - 106 mg/dL 05/02/2025 3:09 PM [facility] Calcium, Serum 9.8 8.7 - 10.4 mg/dL 05/02/2025 3:09 PM [facility] Anion Gap 10.0 0.0 - 15.0 mmol/L 05/02/2025 3:09 PM [facility] Blood 05/02/2025 2:24 PM FLOATLIGHT LOADING SUPERVISOR 05/02/2025 2:43 PM FLOATLIGHT LOADING SUPERVISOR us Poli Catalan MD CHEMISTRY ORDERABLE Final Result [facility] [address] [place] [address] * CBC (HGB,HCT,WBC,RBC,Platelet) (05/02/2025 2:24 PM FLOATLIGHT LOADING SUPERVISOR) WBC 9.9 4.3 - 10.8 K/uL 05/02/2025 2:53 PM [facility] RBC 4.62 4.20 - 5.40 M/uL 05/02/2025 2:53 PM [facility] Hemoglobin 14.2 12.0 - 16.0 gm/dL 05/02/2025 2:53 PM [facility] Hematocrit 41.9 36.0 - 48.0 % 05/02/2025 2:53 PM [facility] MCV 91 80 - 100 fL 05/02/2025 2:53 PM [facility] MCH 31 27 - 33 pg 05/02/2025 2:53 PM [facility] MCHC 34 33 - 36 gm/dL 05/02/2025 2:53 PM [facility] RDW 12.5 11.5 - 14.5 % 05/02/2025 2:53 PM [facility] Platelet Count 236 150 - 400 K/UL 05/02/2025 2:53 PM FLOATLIGHT LOADING SUPERVISOR [facility] MPV 11.9 6.5 - 12 fL 05/02/2025 2:53 PM FLOATLIGHT LOADING SUPERVISOR [facility] Blood 05/02/2025 2:24 PM FLOATLIGHT LOADING SUPERVISOR 05/02/2025 2:42 PM FLOATLIGHT LOADING SUPERVISOR Poli Catalan MD HEMATOLOGY ORDERABLE Final Resul t Performing Organization Address [facility] Co de Phone Number [facility] [address] [place] [address] * Extra Tube PST (Lab Use Only) (05/02/2025 2:24 PM FLOATLIGHT LOADING SUPERVISOR) Blood 05/02/2025 2:24 PM FLOATLIGHT LOADING SUPERVISOR 05/02/2025 2:43 PM FLOATLIGHT LOADING SUPERVISOR Poli Catalan MD CHEMISTRY ORDERABLE Final Result Performing Organization Address [facility] de Phone Number [facility] [address] [place] [address] documented in this encounter Visit Diagnoses Not on filedocumented in this encounter Administered Medications Inactive Administered Medications - up to 3 most recent administrations Medication Order MAR Action Action Date Dose Rate Site ondansetron (Zofran) disintegrating tablet 4 mg 4 mg, oral, ONCE, 1 dose, On Fri05/02/25 at 1430 Given 05/02/2025 2:27 PM FLOATLIGHT LOADING SUPERVISOR 4 mg ONDANSETRON 4 MG DISINTEGRATING TABLET 1 dose, Starting on Fri05/02/25 at 1416, Until Fri05/02/25 at 1427 documented in this encounter Care Teams Shipping And Receiving Material Handler Relationship Specialty Start Date End Date Melchor Leon MD [address] [facility] [address] [place] [address] PCP - General Family Medicine 05/02/25 documented as of this encounter
--- OUTSIDE RECORDS SUMMARY | 2025-05-02 16:45 | XMS_ITS | Clinical Summary ---
Author Organization [facility] Address [address] [address] Care Team Providers Care Plant Mechanic Name Role Phone Anup Lezn MD Primary Care Provider Unavail able Source Comments You are receiving this document as you are listed as the primary care provider,follow-up provider, or the patient has been referred to you for consultation.This is in compliance with the Medicare and[facility] EHR Incentive Program,which states Providers who transition their patient to another setting of careor provider of care or refers their patient to another provider of care shouldprovide summary care record for each transition of care or referral. [facility] Allergies Active Allergy Reactions Criticality Noted Date Comments Review Contrast Media 05/04/2007 PN: LW CM1: >>> NO CONTRAST ADVERSE REACTION <<< Reaction : Review Food Intolerance 05/04/2007 PN: LW FI1: nka Medications unknown medication Indications: PN: 8 Active unknown medication Indications: PN: 8 Active ondansetron (ZOFRAN-ODT) 4 MG disintegrating tabletIndications:D iverticulitis Dissolve 1 Tablet (4 mg) by mouth every 8 hours as needed for Nausea. 10 Tablet 05/02/2025 2:03 AM [facility] 5 Active amoxicillin-clavula sonya (AUGMENTIN) 875-125 mg per tabletIndications:D iverticulitis Take 1 Tablet (875 mg of amoxicillin) by mouth two times a day for 10 days. 20 Tablet 05/02/2025 2:03 AM [facility] 05/12/20 25 Active Active Problems Problem Noted Date Diagnosed Date Cataract 12/10/2007 Overview (01/22/2017): LW Modifier: bilateral ; Cataract NOS Tobacco use disorder 12/10/2007 Overview (01/22/2017): Tobacco Abuse Encounters Date Type Department Care Team Description 05/01/2025 9:00 PM [facility] Ancillary Procedure [facility] [address] [place] [address] 05/01/2025 6:57 PM [facility] - 05/02/2025 2:10 AM [facility] Emergency [facility] [address] [place] [address] Edi Silvestre MD Diverticulitis (Primary Dx); Hypokalemia; Urinary retention Discharge Disposition: Home from Last 3 Months Social History Tobacco Use Types Packs/Day Years [...] on file Sexual Orientation Not on file Last Filed Vital Signs Vital Sign Reading Time Taken Comments Blood Pressure 140/74 05/02/2025 12:00 AM [facility] Pulse 70 05/02/2025 12:30 AM [facility] Temperature 36.4 C (97.6 F) 05/01/2025 8:09 PM [facility] Respiratory Rate 21 05/02/2025 12:3 0 AM [facility] Oxygen Saturation 97% 05/02/2025 12: 30 AM [facility] Inhaled Oxygen Concentration - - Weight 72.6 kg (159 lb 15.8 oz) 008 8:31 AM CDT C: 72.6kg Height 160 cm (5' 3) 12/10/2007 8:31 AM CDT C: 160.0cm Body Mass Index 28.34 12/10/2007 8:31 AM CDT Plan of Treatment Health Maintenance Due Date Last Done Comments Medicare Welcome Visit 1940 DTaP/Tdap/Td Vaccine (1 - Tdap) 1959 Pneumococcal Vaccine 50+ Yrs (1 of 1 - PCV) 1990 RSV Vaccine (1 - 1-dose 75+ series) 2015 Zoster/Shingles Vaccine (2 of 2) 05/22/2020 03/27/20 20 COVID-19 Vaccine (1 - 2024-2 6 season) 2025 Influenza Vaccine (#1) 2025 Dexa Completed 07/05/2021 HepA Vaccine Aged Out No longer eligi ble based on patient's age to complete this topic HepB Vaccine Aged Out No longer eligi ble based on patient's age to complete this topic Hib Vaccine Aged Out No longer eligi ble based on patient's age to complete this topic IPV (Polio) Vaccine Aged Out No longe r eligible based on patient's age to complete this topic MCV4 Vaccine Aged Out No longer eligi ble based on patient's age to complete this topic Meningococcal B Vaccine Aged Out No l onger eligible based on patient's age to complete this topic Procedures Procedure Name Priority Date/Time Associated Diagnosis Comments UA CONDITIONAL UC STAT 05/01/2025 11: [address] ABD PELVIS W IV CONT STAT 05/01/2025 10:18 PM [facility] ECG-ROUTINE 12 LEAD; INTRPT & REPRT STAT 05/01/2025 7:26 PM [facility] MAGNESIUM STAT Add-On 05/01/2025 7:26 PM [facility] LIPASE STAT 05/01/2025 7:26 PM [facility] LIVER PANEL(HEPATIC FUNCTION PANEL) STAT 05/01/2025 7:26 PM [facility] COMPLETE BLOOD COUNT-NO DIFF STAT 05/01/2025 7:26 PM [facility] BASIC METABOLIC PANEL STAT 05/01/2025 7:26 PM [facility] from Last 3 Months Results * (ABNORMAL) UA Conditional UC: Clean Catch (05/01/2025 11:43 PM [facility]) Urine Culture Comment Urinalysis results do not meet criteria for urine culture reflex. 05/02/2025 12:00 AM [facility] Urine Color Light-Yellow 05/02/2025 12:00 AM [facility] Urine Clarity Clear Clear 05/02/2025 12:00 AM [facility] Specific [place], Urine >1.050(H) <1.030 05/02/2025 12:00 AM [facility] Comment:The Specific gravity may be falsely elevated due to the presence of x- ray contrast media, high molecular weight drugs, protein OVER (>600) or Glucose OVER (>1000). If results needed contact lab to have specific gravity performed by alternate method. PH Urine 6.0 5.0 - 8.0 05/02/2025 12:00 AM [facility] Protein Negative Negative, 10 , 20 mg/dL 05/02/2025 12:00 AM [facility] Glucose Normal (Negative) Normal (Negative), 30 , 50 mg/dL 05/02/2025 12:00 AM [facility] Ketones Negative Negative, Trace mg/dL 05/02/2025 12:00 AM [facility] Urobilinogen Normal (Negative) Normal (Negative) EU/dL 05/02/2025 12:00 AM [facility] Bilirubin Negative Negative mg/dL 05/02/2025 12:00 AM [facility] Blood, Urine (mg/dL) 0.10 (Small)(A) Negative, 0.03 (Trace) 05/02/2025 12:00 AM [facility] Nitrite Urine Negative Negative 05/02/2025 12:00 AM [facility] Leukocyte Esterase Negative Negative, 25 (Trace) MAYA/uL 05/02/2025 12:[address] [facility] Red Blood Cells 0 0 - 3 /HPF 12:00 AM [facility] White Blood Cells 4 0 - 5 /HPF 05/02/2025 12:00 AM [facility] Squamous Epithelial Cells Occasional None Seen, Occasional, Few /HPF 05/02/2025 12:00 AM [facility] Source Clean Catch 05/02/2025 12:00 AM [facility] Urine URINE SPECIMEN COLLECTION, CLEAN CATCH / Unknown Non-blood Collection / Unknown 05/01/2025 11:43 PM [facility] 05/01/2025 11:48 PM [facility] Narrative [facility] - 05/02/2025 12:00 AM [facility] The qualitative interpretive guidance provided (e.g., small, moderate, large) is intended to aid in quantitative result interpretation. It is not itself an FDA-cleared test result. us Maria G Willis PA-C LAB_[address] [facility] CLIA: [id number] [address] [place] [address] * CT Abd Pelvis W IV Cont (05/01/2025 10:18 PM [facility]) Anatomical Region Laterality Modality Abdomen, Pelvis Computed Tomogra phy 05/01/2025 10:1 8 PM [facility] Narrative 05/01/2025 11:17 PM [facility] EXAM: CT ABD PELVIS W IV CONT LOCATION: [facility] DATE: 05/01/2025 INDICATION: Concern for bowel obstruction. [...] CT ABD PELVIS W IV CONT LOCATION: [facility] DATE: 05/01/2025 INDICATION: Concern for [...] 2. No bowel obstruction. 3. Normal appendix. Maria G Willis PA-C RAD CT Final Res ult * ECG 12-Lead STAT (EKG) (05/01/2025 7:26 PM [facility]) Ventricular Rate 55 BPM [facility] Atrial Rate 55 BPM [facility] P-R Interval 222 ms M[facility] QRS Duration 106 ms MUSE [facility] QT 450 ms M[facility] QTC 430 ms MUSE [facility] P Stryker 66 degrees MUSE GHP R Stryker 9 degrees MUSE GHP T Stryker 42 degrees MUSE GHP 05/01/2025 7:26 PM [facility] Narrative [facility] - 05/02/2025 7:31 AM [facility] Sinus bradycardia with 1st degree A-V block Incomplete right bundle branch block Borderline ECG When compared with ECG of 19-Oct-2007 08:39, CA interval has increased Confirmed by Emery Evangelista ([id number]) on 05/02/2025 7:31:46 AM Procedure Note Emery Evangelista MD - 05/02/2025 Sinus bradycardia with 1st degree A-V block Incomplete right bundle branch block Borderline ECG When compared with ECG of 19-Oct-2007 08:39, CA interval has increased Confirmed by Emery Evangelista ([id number]) on 05/02/2025 7:31:46 AM Maria G Willis PA-C EKG Final Res ult [facility] [address] [place] [address] * (ABNORMAL) Liver Panel (Hepatic Function Panel) (05/01/2025 7:26 PM [facility]) Pathologist [facility] Alkaline Phosphatase 81 40 - 150 U/L 05/01/2025 8:00 PM [facility] Bilirubin, Total 0.7 0.2 - 1.2 mg/dL 05/01/2025 8:00 PM [facility] Bilirubin, Direct 0.3 0.0 - 0.5 mg/dL 05/01/2025 8:00 PM [facility] AST (SGOT) 30 16 - 46 U/L 05/01/2025 8:00 PM [facility] ALT (SGPT) 19 0 - 55 U/L 05/01/2025 8:00 PM [facility] Protein, Total 6.3(L) 6.4 - 8.3 g/dL 05/01/2025 8:00 PM [facility] Albumin 3.7 3.5 - 5.0 g/dL 05/01/2025 8:00 PM [facility] Blood Venipuncture / Unknown 05/01/2025 7:26 PM [facility] 05/01/2025 7:30 PM [facility] us Maria G Willis PA-C LAB_[address] [facility] CLIA: [id number] [address] [place] [address] * (ABNORMAL) Basic Metabolic Panel (05/01/2025 7:26 PM [facility]) Sodium 135(L) 136 - 145 mmol/L 05/01/2025 8:18 PM [facility] Potassium 2.8(L) 3.5 - 5.1 mmol/L 05/01/2025 8:18 PM [facility] Chloride 100 98 - 109 mmol/L 05/01/2025 8:18 PM [facility] CO2 25 20 - 29 mmol/L 05/01/2025 8:18 PM [facility] Anion Gap 10 6 - 16 mmol/L 05/01/2025 8:18 PM [facility] Calcium 9.6 8.4 - 10.4 mg/dL 05/01/2025 8:18 PM [facility] BUN 10 7 - 26 mg/dL 05/01/2025 8:18 PM [facility] Creatinine 1.10(H) 0.55 - 1.02 mg/dL 05/01/2025 8:18 PM [facility] Glucose 148(H) 70 - 100 mg/dL 05/01/2025 8:18 PM [facility] Comment:The given reference range is for the fasting state. Non-fasting reference range for glucose is 70 - 180 mg/dL. GFR, Estimated 49(L) >60 mL/min/1.7 3m2 05/01/2025 8:18 PM [facility] Blood Venipuncture / Unknown 05/01/2025 7:26 PM [facility] 05/01/2025 7:30 PM [facility] - 05/01/2025 8:18 PM [facility] The National Kidney Disease Education Program suggests measuring Cystatin C in patients with eGFRcrea of 45 to 59 ml/min/1.73^2 who do not have other markers of kidney damage (i.e. elevated urine Albumin/Creatinine Ratio or a prior Cystatin C confirming the presence of chronic kidney disease). us Maria G Willis PA-C LAB_[address] [facility] CLIA: [id number] [address] [place] [address] * (ABNORMAL) Complete Blood Count -no Diff (05/01/2025 7:26 PM [facility]) WBC 13.6(H) 3.5 - 10.5 x10(9)/L 05/01/2025 7:37 PM [facility] RBC 4.48 3.90 - 5.03 x10(12)/L 05/01/2025 7:37 PM [facility] Hemoglobin 13.6 12.0 - 15.5 g/dL 05/01/2025 7:37 PM [facility] HCT 39.3 34.9 - 44.5 % 05/01/2025 7:37 PM [facility] MCV 87.7 80.0 - 100.0 fL 05/01/2025 7:37 PM [facility] MCH 30.4 27.6 - 33.3 pg 05/01/2025 7:37 PM [facility] MCHC 34.6 31.5 - 35.2 g/dL 05/01/2025 7:37 PM [facility] RDW 12.3 11.9 - 15.5 % 05/01/2025 7:37 PM [facility] Platelets 203 150 - 450 x10(9)/L 05/01/2025 7:[address] [facility] [address] Automated NRBC 0 <=0 /100 WBC 05/01/2025 7:[address] [address] Blood Venipuncture / Unknown 05/01/2025 7:26 PM [facility] 05/01/2025 7:30 PM [facility] us Maria G Willis PA-C LAB_1 Final Res ult Performing Organization Address [facility] Co de Phone [facility] CLIA: [id number] [address] [place] [address] * Magnesium (05/01/2025 7:26 PM [facility]) Magnesium 1.9 1.6 - 2.6 mg/dL 05/01/2025 8:45 PM [facility] Blood Venipuncture / Unknown 05/01/2025 7:26 PM [facility] 05/01/2025 7:30 PM [facility] us Edi Silvestre MD LAB_1 Final Result Performing Organization Address [facility] CLIA: [id number] [address] [place] [address] * (ABNORMAL) Lipase (05/01/2025 7:26 PM [facility]) Lipase 116(H) <=60 U/L 05/01/2025 8:00 PM [facility] Blood Venipuncture / Unknown 05/01/2025 7:26 PM [facility] 05/01/2025 7:30 PM [facility] us Maria G Willis PA-C LAB_1 Final Res ult Performing Organization Address [facility] Phone Number [facility] CLIA: [id number] [address] [place] [address] from Last 3 Months Insurance MEDICARE Care Teams Plant Mechanic Relationship Specialty Start Date End Date Anup Lenz MD PCP - General 09/04/10
--- OUTSIDE RECORDS SUMMARY | 2025-05-02 16:45 | XMS_ITS | Clinical Summary ---
Author Organization [facility] Address [address] [place] [address] Care Team Providers Care Sap Pi Architect Name Role Phone Melchor Leon MD Primary Care Provider [phone] Allergies Active Allergy Reactions Criticality Noted Date [...] 05/28/2016 Encephalopathy 05/01/2016 05/28/2016 Encounters Date Type Department Care Team Description 05/02/2025 1:49 PM TAILING MACHINE OPERATOR Emergency [facility] Emergency Department [address] [place] [address] 05/02/2025 Travel from Last 3 Months Immunizations Immunization Administration Dates Next Due Zoster Recombinant 03/27/2020 [...] 1 72.4 Started: 11/28/1952 Smokeless Tobacco: Never Tobacco Cessation:Ready to Q uit: Not Asked; Counseling Given: Not Answered Comments:06/05 PPD [id number] DT, GRAPHICS EDITOR 12/18/2022 Alcohol Use Standard Drinks/Week Comments Not [...] Comments Blood Pressure 144/68 05/02/2025 2:14 PM TAILING MACHINE OPERATOR Pulse 65 05/02/2025 2:14 PM TAILING MACHINE OPERATOR Temperature 36.9 C (98.4 F) 05/02/2025 2:14 PM TAILING MACHINE OPERATOR Respiratory Rate 16 05/02/2025 2:14 PM TAILING MACHINE OPERATOR Oxygen Saturation 100% 05/02/2025 2:14 PM TAILING MACHINE OPERATOR Inhaled Oxygen Concentration - - Weight 74.7 kg (164 lb 11.2 oz) 03/23/2024 7:19 AM CDT Height 157.5 cm (5' 2) 05/02/2025 2:14 PM TAILING MACHINE OPERATOR Body Mass Index 30.12 03/23/2024 7:19 AM [...] 02/04/2017 (Declined), 02/23/2016 (Declined) COVID-19 Vaccine Discontinued Meningococcal B Vaccine Aged Out No l onger eligible based on patient's age to complete this topic Medical Devices Implanted Type Area Site Reliability Engineer Device Identifier Shelf Expiration Date Model / Serial / Lot Hydromark T3-01/28/2024 Implanted:Qty: 1 on 01/28/2024 by Amando Green MD Clip Left: Breast / / [id number] Procedures Procedure Name Priority Date/Time Associated Diagnosis Comments EXTRA TUBE PST STAT 05/02/2025 2:24 PM TAILING MACHINE OPERATOR LIPASE STAT 05/02/2025 2:24 PM TAILING MACHINE OPERATOR LIVER PROFILE STAT 05/02/2025 2:24 PM TAILING MACHINE OPERATOR BASIC METAB PROFILE STAT 05/02/2025 2 :24 PM TAILING MACHINE OPERATOR CBC (HGB,HCT,WBC,RBC,PLATELET ) STAT 05/02/2025 2:24 PM TAILING MACHINE OPERATOR ELECTROCARDIOGRAM STAT 05/02/2025 2:1 8 PM TAILING MACHINE OPERATOR XR BONE DENSITY-SPINE & HIP Routine 07/05/2021 10:34 AM TAILING MACHINE OPERATOR Screening for osteoporosis Postmenopausal from Last 3 Months or Most Recently Relevant to Health Maintenance Results * Lipase (05/02/2025 2:24 PM TAILING MACHINE OPERATOR) Lipase 41 12 - 53 U/L 05/02/2025 3:09 PM TAILING MACHINE OPERATOR [facility] Blood 05/02/2025 2:24 PM TAILING MACHINE OPERATOR 05/02/2025 2:43 PM TAILING MACHINE OPERATOR us Poli Catalan MD CHEMISTRY ORDERABLE Final Result [facility] [address] [address] * Liver Profile (05/02/2025 2:24 PM TAILING MACHINE OPERATOR) ALT 24 7 - 40 U/L 05/02/2025 3:28 PM [facility] Alkaline Phosphatase 86 46 - 116 U/L 05/02/2025 3:28 PM [facility] AST (SGOT) 26 13 - 40 U/L 05/02/2025 3:28 PM [facility] Protein Total 6.7 5.7 - 8.2 g/dL 05/02/2025 3:28 PM [facility] Albumin 4.2 3.4 - 5.0 g/dL 05/02/2025 3:28 PM [facility] Bilirubin-Direct 0.36 <0.40 mg/dL 05/02/2025 3:28 PM [facility] Bilirubin-Total 1.10 0.30 - 1.20 mg/dL 05/02/2025 3:28 PM [facility] Blood 05/02/2025 2:24 PM TAILING MACHINE OPERATOR 05/02/2025 2:43 PM [facility] Poli Catalan MD CHEMISTRY ORDERABLE Final Result [facility] [address] [address] * (ABNORMAL) Basic Metab Profile (05/02/2025 2:24 PM TAILING MACHINE OPERATOR) Pathologist [facility] Sodium 139 136 - 145 mmol/L 05/02/2025 3:09 PM [facility] Potassium 3.2(L) 3.4 - 5.1 mmol/L 05/02/2025 3:09 PM [facility] Chloride 103 98 - 108 mmol/L 05/02/2025 3:09 PM [facility] Carbon Dioxide 26 20 - 31 mmol/L 05/02/2025 3:09 PM [facility] BUN (Urea Nitro) 7(L) 9 - 23 mg/dL 05/02/2025 3:09 PM [facility] Creatinine 1.02 0.55 - 1.02 mg/dL 05/02/2025 3:09 PM [facility] Est GFR (CKD-EPI) 54.02(L) >60.00 mL/min/1. 73m2 05/02/2025 3:09 PM [facility] Comment:Calculation based on the Chronic Kidney Disease Epidemiology Collaboration (CKD-EPI 2020) equation refit without adjustment for race. Glucose 140(H) 74 - 106 mg/dL 05/02/2025 3:09 PM [facility] Calcium, Serum 9.8 8.7 - 10.4 mg/dL 05/02/2025 3:09 PM [facility] Anion Gap 10.0 0.0 - 15.0 mmol/L 05/02/2025 3:09 PM [facility] Blood 05/02/2025 2:24 PM TAILING MACHINE OPERATOR 05/02/2025 2:43 PM TAILING MACHINE OPERATOR Poli Catalan MD CHEMISTRY ORDERABLE Final Result [facility] [address] [place] [address] * CBC (HGB,HCT,WBC,RBC,Platelet) (05/02/2025 2:24 PM TAILING MACHINE OPERATOR) WBC 9.9 4.3 - 10.8 K/uL 05/02/2025 2:53 PM [facility] RBC 4.62 4.20 - 5.40 M/uL 05/02/2025 2:53 PM [facility] Hemoglobin 14.2 12.0 - 16.0 gm/dL 05/02/2025 2:53 PM [facility] Hematocrit 41.9 36.0 - 48.0 % 05/02/2025 2:53 PM [facility] MCV 91 80 - 100 fL 05/02/2025 2:53 PM [facility] MCH 31 27 - 33 pg 05/02/2025 2:53 PM [facility] MCHC 34 33 - 36 gm/dL 05/02/2025 2:53 PM TAILING MACHINE OPERATOR [facility] RDW 12.5 11.5 - 14.5 % 05/02/2025 2:53 PM TAILING MACHINE OPERATOR [facility] Platelet Count 236 150 - 400 K/UL 05/02/2025 2:53 PM TAILING MACHINE OPERATOR [facility] MPV 11.9 6.5 - 12 fL 05/02/2025 2:53 PM TAILING MACHINE OPERATOR [facility] Blood 05/02/2025 2:24 PM TAILING MACHINE OPERATOR 05/02/2025 2:42 PM TAILING MACHINE OPERATOR Poli Catalan MD HEMATOLOGY ORDERABLE Final Resul t Performing Organization Address [facility] Co de Phone Number [facility] [address] [place] [address] * Extra Tube PST (Lab Use Only) (05/02/2025 2:24 PM TAILING MACHINE OPERATOR) Blood 05/02/2025 2:24 PM TAILING MACHINE OPERATOR 05/02/2025 2:43 PM TAILING MACHINE OPERATOR Poli Catalan MD CHEMISTRY ORDERABLE Final Result Performing Organization Address [facility] Co de Phone Number [facility] [place] [address] * XR (MDIP) BONE DENSITY-SPINE & HIP (07/05/2021 10:34 AM TAILING MACHINE OPERATOR) Anatomical Region Laterality Modality Extremity Computed Radiogr aphy 07/05/2021 10:3 5 AM TAILING MACHINE OPERATOR Impressions 07/05/2021 10:37 AM TAILING MACHINE OPERATOR IMPRESSION: Osteopenia. WHO Classification of bone density for post-menopausal women, and men over 50 years of age, is as follows: Normal bone density: T score greater than -1.0. Osteopenia (Low bone density): T score between -1.0 and -2.5. Osteoporosis: T score less than -2.5. REPORT SIGNED BY DR. Gordy Payne Narrative 07/05/2021 10:37 AM TAILING MACHINE OPERATOR EXAM: DEXA BONE DENSITY STUDY DATE: 07/05/2021 10:14 AM COMPARISON: None submitted. CLINICAL DATA: Osteoporosis screening. Post-menopausal. TECHNIQUE: A bone density evaluation using DEXA (dual energy x-ray absorptiometry) was performed for your patient at the [facility] in [place] using a Hologic (Discovery) unit. FINDINGS: Lumbar [...] was performed for your patient at the [facility] in [place] using a Hologic (Discovery) unit. FINDINGS: Lumbar [...] Most Recently Relevant to Health Maintenance Insurance MEDICARE PART A & B MEDICARE PART A & B Mario [address] [place] [id number] MEDICARE PART A & B [facility] Advance Directives For more information, please contact: [phone] * Full Code (Latest Code Status on File) Date Activated Date Inactivated Comments 05/01/2016 4:04 PM 05/11/2016 4:39 PM Question Answer Comments How was code status determined? Patient * Full Code Date Activated Date Inactivated Comments 08/08/2013 5:53 PM 08/09/2013 8:08 PM Question Answer Comments How was code status determined? Patient Care Teams Sap Pi Architect Relationship Specialty Start Date End Date Melchor Leon MD [address] [place] [address] PCP - General Family Medicine 05/02/25
--- OUTSIDE RECORDS SUMMARY | 2025-05-02 16:46 | XMS_ITS | Clinical Summary ---
Author Organization [facility] Address [facility] [place] [address] Care Team Providers Care Raisin Washer Name Role Phone Anup Evans MD Primary Care Provider [phone] Allergies Active Allergy Reactions Criticality Noted Date [...] on file Legal Sex Female 7:20 AM TRACK LAYING MACHINE OPERATOR Gender Identity Not on file Sexual Orientation [...] Health Maintenance Due Date Last Done Comments Tetanus booster 1951 Depression screening for age 12+ 1952 Pneumococcal series for age 50+ (1 of 1 - PCV) 1990 DEXA/DXA scan for age 65+ 2005 Medicare Wellness for age 65+ 2005 RSV vaccine for adults or (1 - 1-dose 75+ series) 2015 Zoster (shingles) series for age 50+ (2 of 2) 05/22/2020 03/27/2020 BMI (ht and wt on same day) for age 18+ 09/14/2023 09/13/2022, 02/22/2022, 04/08/2016 COVID-19 vaccine series ( - season) 2025 Influenza Vaccine (#1) 2025 Hepatitis B series for 19+ Aged Out N o longer eligible based on patient's age to complete this topic Medical Devices Implanted Type Area Relocation Manager Device Identifier Shelf Expiration Date Model / Serial / Lot Cmnt Bone 40g Simplex P Non Atb Mv - [id number] Implanted:Qty: 1 on 01/14/2022 by Moises Souza MD at [facility] Right: Knee [employer] 05/01/2024 6191-1-010 / / [id number] Cmnt Bone 40g Simplex P Non Atb Mv - [id number] Implanted:Qty: 1 on 01/14/2022 by Moises Souza MD at [facility] Right: Knee [employer] 05/01/2024 6191-1-010 / / [id number] Triathlon Primary Tibial Baseplate Implanted:Qty: 1 on 01/14/2022 by Moises Souza MD at [facility] Right: Knee [employer] 10/15/2026 5520-B-400 / / [id number] Triathlon Cruciate Retaining Femoral Implanted:Qty: 1 on 01/14/2022 by Moises Souza MD at [facility] Right: Knee [employer] 11/12/2025 5510-F-402 / / [id number] Implnt Patellar 21p11em Knee X3 Asymmetric Triathlon - [id number] Implanted:Qty: 1 on 01/14/2022 by Moises Souza MD at [facility] Right: Knee [employer] 08/19/2026 5551-G-320 -E / / [id number] Cmnt Bone 40g Simplex P Non Atb Mv - [id number] Implanted:Qty: 1 on 01/14/2022 by Moises Souza MD at [facility] Right: Knee [employer] 05/01/2024 6191-1-010 / / [id number] Triathlon X3 Tibial Bearing Insert - Cs [...] Description:Triathlon Crucia te Retaining Femoral- Kim #4, Fitness Coach Lft, Typ CR Insert Tib Sz 4 10mm Knee X3 Condylar Stabilizing Triathlon - [id number] Implanted:Qty: 1 on 01/13/2023 by Moises Souza MD at [facility] Left: Knee [employer] 11/07/2027 5531-G-[id number] -E / / [id number] Cmnt Bone 40g Simplex P Non Atb Mv - [id number] Implanted:Qty: 2 on 01/13/2023 by Moises Souza MD at [facility] Left: Knee [employer] 04/01/2025 6191-1-010 / / [id number] Primary Tibial Baseplate Implanted:Qty: 1 on 01/13/2023 by Moises Souza MD at [facility] Left: Knee [employer] 11/25/2027 520-B-400 / / [id number] Description:Triathlon Primar y Tibial Baseplate Kim #4 [facility] [address] [place] [id number] [place] [address] [place] [address] MEDICARE PART A HB ONLY MEDICARE PART [...] 8:20 AM 04/22/2016 12:04 PM Care Teams Raisin Washer Relationship Specialty Start Date End Date Anup Evans MD PCP - General Internal Medicine 01/29/23
--- OUTSIDE RECORDS SUMMARY | 2025-05-02 16:46 | XMS_ITS | Encounter Summary ---
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
--- OUTSIDE RECORDS SUMMARY | 2025-05-02 16:46 | XMS_ITS | Data Portability ---
Author Organization [facility] Address [address] [place] [address] Care Team Providers Care Supervisor Aircraft Cleaning Name Role Phone YULI WATKINS Primary Care [...] meantime with any further questions or concerns. [id number] Not available 05/23/2016 15:02:02 Plan of [...] Diagnosis SNOMED-CT Code Diagnosis ICD10 Code Diagnosis IMO Codes Diagnosis Note [id number] Matias Lucia MD [facility] [address] [place] [address] 04/04/2016 17:49:06 04/04/2016 17:49:33 [id number] Matias Lucia MD [facility] - () [address] [place] [address] [place] [address] 2016 08:40:49 04/24/2016 09:20:35 8901 Matias Lucia MD Formerly Named [facility] - () [address] [place] [address] [place] [address] 05/16/2016 10:33:35 05/16/2016 10:34:01 [id number] Deepali Kline PA-C [facility] [address] [facility],[address] [place] [address] 05/23/2016 14:11:54 05/24/2016 08:55:11 Health Concerns Section Related Observation LastModified by Organization Detai ls LastModified Time None Recorded Concern Status LastModified by Organization Details LastModified Time None Recorded Advance Directives Directive None Recorded Payers Insurance Date Sequence Insurance Name Policy Number Policy Singer Covered Member ID Singer Member ID Guarantor Name 05/20/2016 1 [place]IC[place]: [employer] Jennifer Cole [id number] Jennifer Cole 06/05/2016 2 JERI () Jennifer Cole [id number] Jennifer Cole Notes Date Note Type Note [...] drainage from her incision. QUINN Lerma - [facility] 05/24/2016 10:10:26 OBGyn Episode No OBEpisode recorded.
--- OUTSIDE RECORDS SUMMARY | 2025-05-02 16:46 | XMS_ITS | Encounter Summary ---
Author Organization [facility] Address [address] [place] [address] Care Team Providers Care Mass Communications Instructor Name Role Phone Francesco Bonner MD Unavailable [facility] Anup Gómez MD Primary Care Provider [phone] [facility] Francesco Bonner MD Primary Care Provider Unav Melchor Hollis MD Primary Care Provider [phone] Reason for Visit * Reason Onset Date Comments Other 11/19/2021 Return call Chest tightness 11/19/2021 Encounter Details Date Type Department Care Team (Late st Contact Info) Description 11/19/2021 Nurse Triage [facility] Internal [address] [address] Anup Evans MD [address] [place] [address] INTERNAL MEDICINE [place], [place] [id number] Social History Tobacco Use Types Packs/Day Years [...] Notes * Telephone Encounter - Oscar Hussein, RN - 11/19/2021 12:01 PM CDT Disposition: FYI-office visit scheduled- encounter closed Actions Requested: None Ok to leave detailed voice message:no PCP: Anup Evans MD Preferred Pharmacy: [facility] Summary of call details: patient has chest pain last Friday last 20 minutes- none since [facility] see mD [id number] brian rs Oscar Romero RN Care 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 Please call her at [phone]. Seeother messages. Nandini Barkley [facility] Care Access Department documented in this encounter Plan of Treatment Not on file documented as of this encounter Visit Diagnoses Not on filedocumented in this encounter Care Teams Mass Communications Instructor Relationship Specialty Start Date End Date Anup Evans MD PCP - General Internal Medicine 02/23/16 03/04/[address] [address] PCP - Primary Care Clinic 02/23/16 06/12/23 Francesco Bonner MD PCP - General 03/04/24 05/01/25 Melchor Leon MD [address] [place], [place] [address] PCP - General Family Medicine 05/02/25 Francesco Bonner MD 08/11/13 05/01/25 documented as of this encounter
[2025-05-02 17:09] VITALS: BP 150/83; PULSE 78; RESP 20; TEMP 36.4; O2SAT 98; BMI 29.3
--- NOTE | 2025-05-02 17:16 | ED_ITS ---
HPI - Abdominal Pain General Time Seen by Provider: 17:17 Date Seen: 05/02/25 Chief Complaint: Abdominal Pain Stated Complaint: constipated/ says chest feels weird Time Seen by Provider: 05/02/25 17:16 Source: patient and RN notes reviewed Mode of arrival: ambulatory Limitations: no limitations History of Present Illness HPI narrative: Jennifer is 85-year-old female with history of COPD hypertension, continued smoking and diagnosis of diverticulitis yesterday who comes to the [facility] for evaluation regarding abdominal pain vomiting and pain all over. Jennifer was noted to have developed abdominal pain in her mid and left upper quadrant after suffering from constipation for months according to her son. Yesterday she called him but he was out of town and she wanted to go to the hospital which was very unusual for her. EMS was called and she went to [facility] at which time she was diagnosed with acute uncomplicated diverticulitis, urinary retention and hypokalemia. She was given IV potassium in the ER, started on oral amoxicillin and had a catheter placed after a bladder scan revealed significant urinary retention. She still has the catheter in at this time and states that she is not very happy about that. Patient was told that she should be admitted but she declined. She went home with oral antibiotics, Larsen catheter. Today she continues to feel poorly with significant nausea, retching. She notes her abdominal pain is still present. Unfortunately she has not been able to keep any of her antibiotics down. She and her son did drive up to [facility] today at which time they waited 1-1/2 hours and were told that it was going to be an additional hour until they were seen. They left [facility] and came here to the [facility]. Time patient is retching but then requesting water. She is in agreement that should I recommend admission she will stay at the hospital tonight patient denies any fevers. She is having small amounts of stool-describes it as pieces. Feels like her belly is less bloated than it was yesterday and that is getting back to normal. Patient told the ER staff that her chest ?feels funny?. The further elaborate. No shortness of breath at this time. Related Data Home Medications ?Medication ?Instructions ?Recorded ?Confirmed potassium chloride 20 mEq 20 meq PO DAILY 02/06/2208/24 tablet,extended release(part/cryst) cholecalciferol (vitamin D3) 1 cap PO DAILY 02/01/23 0 09/02/24 rosuvastatin 20 mg tablet (Crestor) 20 mg PO DAILY 09/02/24 triamterene 37.5 1 cap PO DAILY 07/21/2408/24 mg-hydrochlorothiazide 25 mg capsule Previous Rx's ?Medication ?Instructions ?Recorded ondansetron 4 mg disintegrating 4 mg PO Q8H PRN nausea and 08/23/24 tablet vomiting #10 tabs Allergies Allergy/AdvReac Type Severity Reaction Status Date / Time No Known Drug Allergies Allergy Verified 09/02/24 19:57 Review of Systems Status of ROS Reports: 10 or more systems reviewed and unremarkable except as noted in History and below Const Reports: fatigue; Denies: fever or chills Eyes Denies: change in vision ENMT Denies: throat pain or nasal congestion Cardio Reports: chest pain (feels funny.) and lightheadedness; Denies: shortness of breath with exertion Resp Denies: shortness of breath or cough GI Reports: abdominal pain, nausea, vomiting and constipation; Denies: blood in stool Denies: blood in urine Musculo Denies: back pain or extremity swelling Endo Reports: fatigue PFSH PFSH Medical History Uterine mass ?N85.8 - Other specified noninflammatory disorders of uterus (ICD-10) Tobacco use ?Z72.0 - Tobacco use (ICD-10) Subclavian vein stenosis, right ?I87.1 - Compression of vein (ICD-10) Subclavian arterial stenosis ?I77.1 - Stricture of artery (ICD-10) Pulmonary nodules ?R91.8 - Other nonspecific abnormal finding of lung field (ICD-10) Pneumonia, organism unspecified ?J18.9 - Pneumonia, unspecified organism (ICD-10) PAD (peripheral artery disease) ?I73.9 - Peripheral vascular disease, unspecified (ICD-10) Osteopenia ?M85.80 - Other specified disorders of bone density and structure, unspecified site (ICD-10) Osteoarthritis of right knee ?M17.11 - Unilateral primary osteoarthritis, right knee (ICD-10) Lumbar disc herniation ?M51.26 - Other intervertebral disc displacement, lumbar region (ICD-10) Hyperlipidemia ?E78.5 - Hyperlipidemia, unspecified (ICD-10) Hypercholesteremia ?E78.00 - Pure hypercholesterolemia, unspecified (ICD-10) HTN (hypertension) ?I10 - Essential (primary) hypertension (ICD-10) Endometrial mass ?N94.89 - Other specified conditions associated with female genital organs and menstrual cycle (ICD-10) DDD (degenerative disc disease) Asymmetric blood pressures ?I99.8 - Other disorder of circulatory system (ICD-10) ASCVD (arteriosclerotic cardiovascular disease) ?I25.10 - Atherosclerotic heart disease of [place] coronary artery without angina pectoris (ICD-10) Surgical History History of cataract removal with insertion of prosthetic lens ?Z98.49 - Cataract extraction status, unspecified eye (ICD-10) ?Z96.1 - Presence of intraocular lens (ICD-10) History of cholecystectomy ?Z90.49 - Acquired absence of other specified parts of digestive tract (ICD- 10) History of laminectomy ?Z98.890 - Other specified postprocedural states (ICD-10) History of lumbar discectomy ?Z98.890 - Other specified postprocedural states (ICD-10) History of breast surgery ?Z98.890 - Other specified postprocedural states (ICD-10) History of total knee arthroplasty ?Z96.659 - Presence of unspecified artificial knee joint (ICD-10) Social History Smoking Status: Current every day smoker What tobacco products do you use: cigarettes Smoking packs per day: 1 Smoking cigarettes per day: 20.0 Years s moked: 70 Smoking pack-years: 70.00 Do you use any of these nicotine containing products: None Second hand tobacco smoke exposure: Yes How often do you have a drink containing alcohol: never AUDIT-C Alcohol total score: 0 Non-prescribed substance use: denies use service: No Exam Narrative: Exam Narrative: Patient is in the position with emesis bag around her mouth with occasional retching. No production at this time. She is pale in appearance. Eyes are clear. Lips are dry. Neck is supple. Heart with a regular rate and rhythm. No evidence of subcutaneous emphysema. Lungs are with distant breath sounds but clear bilaterally. Abdomen is with tenderness throughout. No significant distension. Lower extremities without edema. Moving extremities without difficulty. It Const: Vital Signs, click to edit/add: Vital Signs - 24 hr 05/02/25 17:09 05/02/25 17:35 Temperature 97.5 F L Pulse Rate [Pulse Oximeter] 78 Respiratory Rate 20 Blood Pressure [Le ft Upper Arm] 150/83 H Pulse Oximetry 98 93 Oxygen Delivery Me thod Room Air Documenting provider has reviewed patient's vital signs: yes Course Course ED Course: Jennifer presents to the [facility] 24 hours after having been diagnosed with acute uncomplicated diverticulitis by CT at [facility] in [place]. At that time it was also found that she had the acute urinary retention, headache Larsen catheter placed as well as hypokalemia and did receive IV potassium. She left the hospital not wanting to stay as had been suggested by medical staff. She was placed on amoxicillin but the Do she took this morning she did vomited. That she has not been receiving antibiotics. Given her age as well as significant abdominal pain she is a candidate for inpatient admission. My concern of course is that she has worsening discomfort. We will recheck her labs to include CBC, comprehensive panel, lipase, lactate, CRP. Will do our best to get records from [facility] for comparison. I am also of course concerned about her potassium as it was 2.8 yesterday. Blood cultures have also been ordered. Also added EKG, cardiac monitoring, oximetry as well as troponin given chest symptoms. For discomfort and nausea will give her Zofran 4 mg, morphine 4 mg and give her 1 L of normal saline. At this time her Larsen is draining without difficulty. Even though she is not pleased with idea of having a Larsen I do believe he will need to be remain in place during this time. Zosyn 3.375 g IV ordered for diverticulitis. Reevaluation(s) Reevaluation #1: Patient appears improved after our medications. Able to obtain documents from [facility]. Patient had been prescribed Augmentin for diverticulitis. Also given Zofran to use at home. No evidence of a fever yesterday and blood pressure and pulse were normal. Urinalysis yesterday showed 4 wbc's and, no evidence of l eukocyte Estrace and she was nitrate negative. A CT did show colonic diverticulosis with colonic thickening and pericolonic fat stranding at the distal descending colon compatible with acute uncomplicated diverticulitis. Liver panel essentially normal. Basic panel showed a potassium of 2.8, sodium of 135, creatinine of 1.1 and glucose of 148. A GFR of 49. Her white count was elevated yesterday at 13.6 with a hemoglobin of 13.6 and platelets were 203. Magnesium was 1.9. Reevaluation #2: Patient did have improvement of her pain but still continues to complain of nausea. Stated to nursing staff that Compazine yesterday seemed to help a bit. Will give her 2.5 mg IV. Consultations Consultation #1: At the pleasure of consulting with Dr. Quevedo, surgeon. Time will not obtain repeat CT given improvement of white count as well as normal lactate. Vital Signs Vital signs: Initial Vital Signs Temperature 97.5 F L 05/02/25 17:09 Temperature Source Temporal Artery Scan 05/02/25 17:09 Pulse Rate 78 05/02/25 17:09 Respiratory Rate 20 05/02/25 17:09 Blood Pressure 150/83 H 05/02/25 17:09 Blood Pressure Mean 105 05/02/25 17:09 Blood Pressure Position Left Lateral 05/02/25 17:09 Pulse Oximetry 98 05/02/25 17:09 Oxygen Delivery Method Room Air 05/02/25 17:09 Vital Signs Temperature 97.5 F L 05/02/25 17:09 Pulse Rate 78 05/02/25 17:09 Respiratory Rate 20 05/02/25 17:09 Blood Pressure 150/83 H 05/02/25 17:09 Pulse Oximetry 98 05/02/25 17:09 Oxygen Delivery Method Room Air 05/02/25 17:09 Temperature 97.5 F L 05/02/25 17:09 Pulse Rate 78 05/02/25 17:09 Respiratory Rate 20 05/02/25 17:09 Blood Pressure 150/83 H 05/02/25 17:09 Pulse Oximetry 93 05/02/25 17:35 Oxygen Delivery Method Room Air 05/02/25 17:09 Medications Administered Medications: Generic Name Dose Route Start Last Admin Trade Name Freq PRN Reason Stop Dose Admin Prochlorperazine 2.5 mg 05/02/25 19:25 05/02/25 19:37 Prochlorperazine 5 Mg/Ml Vial IVP 05/02/25 19:26 2.5 mg ONCE ONE Administration Discontinued Medications Generic Name Dose Route Start Last Admin Trade Name Jody PRN Reason Stop Dose Admin Sodium Chloride 1,000 mls @ 1,000 mls/hr 05/02/25 17:29 05/02/25 18:20 0.9 % Sodium Chloride 1000 Ml IV 05/02/25 18:28 1,000 mls/hr .Q1H BHASKAR Administration Piperacillin Sod/Tazobactam 100 mls @ 200 mls/hr 05/02/25 17:30 05/02/25 19:46 Sod 3.375 gm/ Sodium Chloride IVPB 05/02/25 17:31 Infused ONCE ONE Infusion Morphine Sulfate 4 mg 05/02/25 17:27 05/02/25 18:18 Morphine 4 Mg/Ml Inj IVP 05/02/25 17:28 4 mg ONCE ONE Administration Ondansetron HCl 4 mg 05/02/25 17:27 05/02/25 18:12 Ondansetron 2 Mg/Ml Inj IVP 05/02/25 17:28 4 mg ONCE ONE Administration MDM - Abdominal Pain MDM Narrative Medical decision making narrative: 1. Diverticulitis-patient noted to have CT confirmed acute uncomplicated diverticulitis on a CT scan at [facility] yesterday. Today patient has continued significant discomfort, retching in his unable to keep any antibiotics down. Given her age which is a risk factor for complications will admit her to [facility] for IV antibiotics and pain control. Patient had received Zosyn 3.375 g IV as well as morphine 4 mg IV. 2. Hypokalemia -patient noted to have potassium of 2.8 yesterday. Today's potassium is 3.5. 3. Acute urinary retention-indwelling catheter continues. Urinalysis was not suspicious for UTI yesterday. Will need outpatient follow-up with Urology. 4. Tobacco use-advised to quit. 5. Vomiting-somewhat improved the Zofran. Patient then received Compazine 2.5 m g IV. Magnesium is 2.5. 6. History of COPD-patient noted to be breathing easy with no evidence of tachypnea. Lung sounds reassuring. 7. Disposition-inpatient admission under the care of hospitalist Dr. Monroe due to CT confirmed diverticulitis, increasing abdominal pain, continued retching unable to take fluids needing IV antibiotics and IV fluids as well as IV pain control. Note patient had complained of her chest feeling funny. No evidence of significant arrhythmia. EKG without evidence of acute ST or T-wave changes. Troponin is negative. Medical Records Attestation: I reviewed the patient's medical records. Lab Data Attestation: I reviewed the patient's lab results. Labs: Lab Results 05/02/25 05/02/25 Range/Units 17:35 17:50 WBC 10.42 (4.50-11.00) K/uL RBC 4.67 (4.00-5.20) m/uL Hgb 14.4 (12.0-16.0) gm/dL Hct 42.2 (33.0-51.0) % MCV 90 (80-100) fL MCH 31 (26-34) pg MCHC 34 (32-36) gm/dL RDW Coeff of Shira 12.4 (11.5-15.5) % Plt Count 211 (140-440) K/uL Neut % (Auto) 90.8 H (42.0-72.0) % Lymph % (Auto) 6.0 L (20-44) % [place] % (Auto) 2.9 (0.0-11.0) % Eos % (Auto) 0.0 (0.0-7.0) % Baso % (Auto) 0.1 (0.0-3.0) % Neut # (Auto) 9.50 H (1.7-7.0) K/uL Lymph # (Auto) 0.60 L (0.90-2.90) K/uL [place] # (Auto) 0.30 (0.00-0.90) K/UL Eos # (Auto) 0.00 (0.00-0.50) K/uL Baso # (Auto) 0.01 (0.00-0.30) K/uL Abs Immat Gran (auto) 0.02 (0.00-0.30) K/uL Imm/Tot Granulo (auto) 0.2 % Sodium 135 (135-149) mmol/L Potassium 3.5 L (3.6-5.1) mmol/L Chloride 94 L (96-114) mmol/L Carbon Dioxide 27 (20-32) mmol/L Anion Gap 14 (7-15) mEq/L BUN 11 (7-30) mg/dL Creatinine 1.1 (0.5-1.5) mg/dL Estimated Creat Clear 26.86 Estimated GFR 49 ml/min Glucose 154 H (60-115) mg/dL Lactate 1.7 (0.5-1.9) mmol/L Calcium 9.7 (8.4-10.6) mg/dL Magnesium 2.5 (1.5-2.6) mg/dL Total Bilirubin 1.4 (0.1-1.5) mg/dL AST 34 (12-35) U/L ALT 26 (4-35) U/L Alkaline Phosphatase 97 (40-150) U/L POC Troponin I High Sensi 5.0 (2.9-13.0) pg/mL C-Reactive Protein 0.9 (0.5-1.0) mg/dL Total Protein 7.3 (6.0-8.3) g/dL Albumin 4.5 (3.3-5.0) g/dL Lipase 79 (23-300) U/L ECG Data Attestation: I personally reviewed and interpreted this ECG as follows: ECG interpretation date: 05/02/25 Interpretation: EKG by my read shows sinus bradycardia with arrhythmia. First-degree AV block with a SD interval of 212. QT interval within normal limits. I do not note any acute ST or T-wave changes. Discharge Plan Discharge Clinical Impression: Diverticulitis Patient Disposition: Admitted As Inpatient Condition: Improved
[2025-05-02 17:35] VITALS: O2SAT 93
[2025-05-02 18:03] LABS: Hematocrit* 42.2 % (33.0-51.0); Hemoglobin* 14.4 gm/dL (12.0-16.0); Immature Granulocytes Abs Auto 0.02 K/uL (0.00-0.30); Immature Granulocytes Pct Auto 0.2 %; Mean Corpuscular HGB Conc 34 gm/dL (32-36); Mean Corpuscular Hemoglobin 31 pg (26-34); Mean Corpuscular Volume 90 fL (80-100); RDW Coefficient of Variation % 12.4 % (11.5-15.5); Red Blood Count* 4.67 m/uL (4.00-5.20); White Blood Count* 10.42 K/uL (4.50-11.00)
[2025-05-02 18:06] LABS: Lactate Sepsis w/Reflex* 1.7 mmol/L (0.5-1.9)
[2025-05-02 18:08] LABS: Lymphocytes Absolute Auto 0.60 K/uL (0.90-2.90)
[2025-05-02 18:09] LABS: Slide Review Reflex No
[2025-05-02] MEDS: ONDANSETRON 2 MG/ML inj 4 MG IVP ×2 (18:12→22:25)
[2025-05-02] MEDS: MORPHINE 4 MG/ML INJ IVP (18:18)
[2025-05-02 18:27] LABS: Albumin* 4.5 g/dL (3.3-5.0); Chloride* 94 mmol/L (96-114); Sodium* 135 mmol/L (135-149)
[2025-05-02 18:28] LABS: Potassium* 3.5 mmol/L (3.6-5.1)
[2025-05-02 18:30] LABS: Alanine Aminotransferase* 26 U/L (4-35); Alkaline Phosphatase* 97 U/L (40-150); Anion Gap 14 mEq/L (7-15); Aspartate Amino Transferase* 34 U/L (12-35); Bilirubin Total* 1.4 mg/dL (0.1-1.5); Blood Urea Nitrogen* 11 mg/dL (7-30); Carbon Dioxide* 27 mmol/L (20-32); Creatinine* 1.1 mg/dL (0.5-1.5); Est. Creatinine Clearance* 26.86; Estimated Glomerular Filt Rate 49 ml/min
[2025-05-02 18:31] LABS: Calcium* 9.7 mg/dL (8.4-10.6); Glucose* 154 mg/dL (60-115); Total Protein* 7.3 g/dL (6.0-8.3)
[2025-05-02] MEDS: PIPERACILLIN/TAZOBACTAM 3.375 GM in 0.9 % SODIUM CHLORIDE Mini-bag 100 ML IVPB (19:05)
[2025-05-02] MEDS: PROCHLORPERAZINE 5 MG/ML VIAL 2.5 MG IVP (19:37)
[2025-05-02 20:09] VITALS: BP 116/51; PULSE 63; RESP 19; O2SAT 91
--- NOTE | 2025-05-02 20:34 | PC.NURSE ---
Patient/son declined copy of Medicare rights form.
--- NOTE | 2025-05-02 20:46 | P.IMHP_ITS ---
Assessment and Plan Assessment and plan (1) Acute diverticulitis: Problem comment: -CT abdomen showed colonic diverticulosis with colonic thickening and pericolonic fat stranding at the distal descending colon compatible with acute uncomplicated diverticulitis. -start Zosyn IV q.6 hours -IV fluids -pain management plus antiemetics. -consider consulting general surgeon at a.m. Status: Acute (2) Urinary retention: Problem comment: -patient had been complaining of constipation for months, which might be related to her urinary retention and both could be secondary to a gynecological issue like a prolapse. a urinary catheter was inserted yesterday. -follow-up with OB Gyne/urologist as an outpatient. Status: Acute (3) Chronic constipation: Problem comment: -patient had been complaining of constipation for months, which might be related to her urinary retention and both could be secondary to a gynecological issue like a prolapse. a urinary catheter was inserted yesterday. -follow-up with OB Gyne/urologist as an outpatient. Status: Acute (4) HTN (hypertension): Problem comment: Resume home meds Status: Acute (5) Tobacco use: Problem comment: Nicotine patch Status: Acute Total Time Spent Total Time Spent: Time spent: Today I spent 75 minutes seeing the patient, discussing the patient with ER staff, reviewing Expanse and EPIC notes/diagnostics, discussing the care plan with our care time that includes social work, PT/OT, pharmacy, RT, care home and documenting my impressions and plan in the medical record. Hospitalist- H&P: HPI History of Present Illness Date Seen: 05/02/25 Chief complaint: constipated/ says chest feels weird Narrative: Jennifer Cole is a 85 year old female with past medical history of hypertension, COPD, tobacco use disorder who already had a diagnosis of diverticulitis ( uncomplicated) that was diagnosed at [facility], in addition to urinary retention. At [facility], they recommended admission but the patient declined and she was prescribed at oral antibiotics which she could not keep down because of severe nausea and vomiting. Patient felt worse and thus she presented here for management of her medical issues. note that patient had been complaining of constipation for months, which might be related to her urinary retention and both could be secondary to a gynecological issue like a prolapse. a urinary catheter was inserted yesterday and it seems that there was a large amount of urine retained and was emptied once the cath was inserted. At the ED, patient is hemodynamically stable, afebrile. ED provider contacted Dr. Quevedo, our surgeon who just recommended antibiotics for now and did not recommend more imaging at our hospital. As patient mentioned funny feeling in her chest troponin was done and was negative EKG showed sinus bradycardia with first-degree AV block. Review of Systems Status of ROS: Reports: 6 or more systems reviewed and unremarkable except as noted in History and below [facility] Medical History (Updated 05/02/25 @ 20:55 by Valorie Monroe MD) Uterine mass ?N85.8 - Other specified noninflammatory disorders of uterus (ICD-10) Tobacco use ?Z72.0 - Tobacco use (ICD-10) Subclavian vein stenosis, right ?I87.1 - Compression of vein (ICD-10) Subclavian arterial stenosis ?I77.1 - Stricture of artery (ICD-10) Pulmonary nodules ?R91.8 - Other nonspecific abnormal finding of lung field (ICD-10) Pneumonia, organism unspecified ?J18.9 - Pneumonia, unspecified organism (ICD-10) PAD (peripheral artery disease) ?I73.9 - Peripheral vascular disease, unspecified (ICD-10) Osteopenia ?M85.80 - Other specified disorders of bone density and structure, unspecified site (ICD-10) Osteoarthritis of right knee ?M17.11 - Unilateral primary osteoarthritis, right knee (ICD-10) Lumbar disc herniation ?M51.26 - Other intervertebral disc displacement, lumbar region (ICD-10) Hyperlipidemia ?E78.5 - Hyperlipidemia, unspecified (ICD-10) Hypercholesteremia ?E78.00 - Pure hypercholesterolemia, unspecified (ICD-10) HTN (hypertension) ?I10 - Essential (primary) hypertension (ICD-10) Endometrial mass ?N94.89 - Other specified conditions associated with female genital organs and menstrual cycle (ICD-10) DDD (degenerative disc disease) Asymmetric blood pressures ?I99.8 - Other disorder of circulatory system (ICD-10) ASCVD (arteriosclerotic cardiovascular disease) ?I25.10 - Atherosclerotic heart disease of [place] coronary artery without angina pectoris (ICD-10) Surgical History History of cataract removal with insertion of prosthetic lens ?Z98.49 - Cataract extraction status, unspecified eye (ICD-10) ?Z96.1 - Presence of intraocular lens (ICD-10) History of cholecystectomy ?Z90.49 - Acquired absence of other specified parts of digestive tract (ICD- 10) History of laminectomy ?Z98.890 - Other specified postprocedural states (ICD-10) History of lumbar discectomy ?Z98.890 - Other specified postprocedural states (ICD-10) History of breast surgery ?Z98.890 - Other specified postprocedural states (ICD-10) History of total knee arthroplasty ?Z96.659 - Presence of unspecified artificial knee joint (ICD-10) Social History Smoking Status: Current every day smoker What tobacco products do you use: cigarettes Smoking packs per day: 1 Smoking cigarettes per day: 20.0 Years smoked: 70 Smoking pack-years: 70.00 Do you use any of these nicotine containing products: None Second hand tobacco smoke exposure: Yes How often do you have a drink containing alcohol: never AUDIT-C Alcohol total score: 0 Non-prescribed substance use: denies use service: No Meds Home Medications and Allergies Home Medications ?Medication ?Instructions ?Recorded ?Confirmed ?Type potassium chloride 20 mEq 20 meq PO DAILY 02/06/2208/24 History tablet,extended release(part/cryst) cholecalciferol (vitamin D3) 1 cap PO DAILY 02/01/23 0 09/02/24 History rosuvastatin 20 mg tablet (Crestor) 20 mg PO DAILY 09/02/24 History triamterene 37.5 1 cap PO DAILY 07/21/24 04/0 08/24 History mg-hydrochlorothiazide 25 mg capsule ondansetron 4 mg disintegrating 4 mg PO Q8H PRN nausea and 08/23/24 05/02/25 Rx tablet vomiting #10 tabs Allergies Allergy/AdvReac Type Severity Reaction Status Date / Time No Known Drug Allergies Allergy Verified 09/02/24 19:57 Exam Narrative: Exam Narrative: Physical exam GENERAL: Comfortable, no acute distress. HEAD AND NECK: Atraumatic, normocephalic CARDIOVASCULAR: RRR. Normal S1, S2. No murmurs. RESPIRATORY: Clear to auscultation B/L. Good air entry B/L. No wheezes or rhonchi. GASTROINTESTINAL: Not distended, diffusely tender to palpation. Soft, no rigidity. NEUROLOGY: Alert, awake. Normal speech. PSYCH: Normal mood, normal affect. Const: Vital Signs, click to edit/add: Vital Signs - 24 hr 05/02/25 17:09 05/02/25 17:35 05/02/25 20:09 Temperature 97.5 F L Pulse Rate [Pulse Oximeter] 78 63 Respiratory Rate 20 19 Blood Pressure [Le ft Upper Arm] 150/83 H 116/51 L Pulse Oximetry 98 93 91 Oxygen Delivery Me thod Room Air Room Air Hospitalist - H&P: Result Labs Labs: Short CBC 05/02/25 Range/Units 17:50 WBC 10.42 (4.50-11.00) K/uL Hgb 14.4 (12.0-16.0) gm/dL Hct 42.2 (33.0-51.0) % Plt Count 211 (140-440) K/uL BMP 05/02/25 17:50 Sodium 135 Potassium 3.5 L Chloride 94 L Carbon Dioxide 27 BUN 11 Creatinine 1.1 Glucose 154 H Calcium 9.7 Liver Function 05/02/25 Range/Units 17:50 Total Bilirubin 1.4 (0.1-1.5) mg/dL AST 34 (12-35) U/L ALT 26 (4-35) U/L Alkaline Phosphatase 97 (40-150) U/L Albumin 4.5 (3.3-5.0) g/dL ECG Attestation: I personally reviewed and interpreted this ECG as follows: ECG interpretation date: 05/02/25 Pacemaker model: sinus bradycardia with first-degree AV block. Normal QTc
[2025-05-02] MEDS: 0.9 % SODIUM CH + KCL 20 mEq/L 1,000 ML 125 ML IV (21:08)
[2025-05-02] MEDS: SODIUM CHLORIDE 0.9 % (FLUSH) 10 ML SYRINGE 5 ML IVF ×2 (21:10→22:26)
[2025-05-02] MEDS: PROCHLORPERAZINE 5 MG/ML VIAL IV (21:10)
[2025-05-02] MEDS: ENOXAPARIN 40 MG/0.4 ML INJ SUBCUT (21:13)
[2025-05-02 22:12] VITALS: BP 144/119; PULSE 70; RESP 22; TEMP 36.5; O2SAT 95; BMI 30.4; BMI 30.5
[2025-05-02 22:34] VITALS: BP 135/68; PULSE 84; RESP 18; TEMP 36.7; O2SAT 94
[2025-05-02 23:00] VITALS: PULSE 84
[2025-05-03] VITALS (8 sets, daily range): BP systolic 92–162; BP diastolic 64–84; PULSE 50–76; RESP 16–20; TEMP 36.7–37.1; O2SAT 93–97
[2025-05-03] MEDS: PROCHLORPERAZINE 5 MG/ML VIAL 10 MG IV ×2 (01:51→20:16)
[2025-05-03] MEDS: PIPERACILLIN/TAZOBACTAM 3.375 GM in 0.9 % SODIUM CHLORIDE Mini-bag 100 ML IVPB ×4 (01:51→19:58)
[2025-05-03] MEDS: SODIUM CHLORIDE 0.9 % (FLUSH) 10 ML SYRINGE 5 ML IVF ×3 (01:52→20:16)
[2025-05-03] MEDS: 0.9 % SODIUM CH + KCL 20 mEq/L 1,000 ML 125 ML IV (05:04)
--- NOTE | 2025-05-03 05:15 | PC.NURSE ---
Patient to the floor at 1999. A&Ox3. Cooperative with cares. Ongoing nausea w/intermittent dry heaving despite antiemetics. MD notified. See orders. Patient slept on and off during noc. NPO. Larsen patient. BS active, denies passing gas. Declines pain medication for abd discomfort.
[2025-05-03 06:28] LABS: Hematocrit* 37.5 % (33.0-51.0); Hemoglobin* 12.6 gm/dL (12.0-16.0); Mean Corpuscular HGB Conc 34 gm/dL (32-36); Mean Corpuscular Hemoglobin 31 pg (26-34); Mean Corpuscular Volume 91 fL (80-100); Red Blood Count* 4.12 m/uL (4.00-5.20); White Blood Count* 9.41 K/uL (4.50-11.00)
[2025-05-03 06:42] LABS: Slide Review Reflex No
[2025-05-03 06:45] LABS: Albumin* 3.8 g/dL (3.3-5.0); Chloride* 99 mmol/L (96-114); Sodium* 135 mmol/L (135-149)
[2025-05-03 06:46] LABS: Potassium* 3.3 mmol/L (3.6-5.1)
[2025-05-03 06:48] LABS: Alanine Aminotransferase* 22 U/L (4-35); Alkaline Phosphatase* 76 U/L (40-150); Anion Gap 11 mEq/L (7-15); Aspartate Amino Transferase* 27 U/L (12-35); Bilirubin Total* 1.5 mg/dL (0.1-1.5); Blood Urea Nitrogen* 10 mg/dL (7-30); Carbon Dioxide* 25 mmol/L (20-32); Creatinine* 0.9 mg/dL (0.5-1.5); Est. Creatinine Clearance* 32.53; Estimated Glomerular Filt Rate 63 ml/min; Total Protein* 6.1 g/dL (6.0-8.3)
[2025-05-03 06:49] LABS: Calcium* 8.4 mg/dL (8.4-10.6); Glucose* 126 mg/dL (60-115)
--- NOTE | 2025-05-03 09:39 | CRLHL7_ITS ---
For Patients: As a result of the Century Cures Act, medical imaging exams and procedure reports are released immediately into your electronic medical record. You may view this report before your referring provider. If you have questions, please contact your health care provider. Indication: Worsening abd pain, nausea, CT 05/02 diverticulosis Technique: Abdomen 1 view. Comparison: 07/21/2024 Findings: Stool is present in the colon. No dilated small bowel loops. No pleural effusion. No renal calculi. No evidence of free air. Psoas margins are maintained. No mass effect. Impression: No bowel obstruction or suspicion of abscess. Dictated by Oscar Cm MD @ 05/03/2025 10:15:35 AM (Electronically Signed)
[2025-05-03] MEDS: DEXAMETHASONE 10 MG/ML PF 6 MG IVP (09:42)
[2025-05-03] MEDS: PANTOPRAZOLE SODIUM 40 MG INJ IVP (12:31)
--- NOTE | 2025-05-03 13:09 | CRLHL7_ITS ---
For Patients: As a result of the Century Cures Act, medical imaging exams and procedure reports are released immediately into your electronic medical record. You may view this report before your referring provider. If you have questions, please contact your health care provider. INDICATION: Intractable vomiting. TECHNIQUE: Noncontrast CT of the head with multiplanar reconstruction utilizing bone and soft tissue algorithms. COMPARISON: CT head dated 08/23/2024. FINDINGS: No acute intracranial hemorrhage. Similar scattered hypoattenuation within the supratentorial white matter typical of chronic small vessel ischemic changes. Stable more conspicuous hyperdensity within the left centrum semiovale potentially representing a chronic lacunar infarct. The ventricles are unchanged in size. There is similar mild diffuse parenchymal volume loss. No abnormal extra-axial fluid collection is identified. Intact calvarium. Bilateral pseudophakia. The imaged paranasal sinuses and mastoid air cells are predominantly clear. IMPRESSION: 1. No acute intracranial hemorrhage or mass effect. 2. Similar mild diffuse parenchymal volume loss and chronic small vessel ischemic changes. 3. Stable focal hypodensity within the left centrum semiovale likely representing a chronic lacunar type infarct. Please note that all CT scans at this facility use dose modulation, iterative reconstruction, and/or weight-based dosing when appropriate to reduce radiation dose to as low as reasonably achievable. Dictated by Jefferson Hernandez MD @ 05/03/2025 3:53:04 PM (Electronically Signed)
--- NOTE | 2025-05-03 13:09 | CRLHL7_ITS ---
For Patients: As a result of the Century Cures Act, medical imaging exams and procedure reports are released immediately into your electronic medical record. You may view this report before your referring provider. If you have questions, please contact your health care provider. INDICATION: Intractable vomiting, abdominal pain, nausea TECHNIQUE: CT abdomen and pelvis acquired with 81 cc Isovue 370 IV contrast. COMPARISON: CT abdomen and pelvis with contrast 07/21/2024 and 02/13/2022 FINDINGS: Lower chest: Subsegmental atelectasis. Liver: Unchanged hyperenhancing focus in the peripheral right hepatic lobe (series 3, image 26). Additional ill-defined hyperenhancing foci are present within the hepatic lobe (for example series 3, image 21, 45). Hypoattenuation along the falciform ligament may reflect focal fatty infiltration. Gallbladder and bile ducts: Prior cholecystectomy with similar prominence of the intrahepatic and extrahepatic bile ducts likely secondary to reservoir effect. Pancreas: Unremarkable. Spleen: Unremarkable. Normal in size. No masses. Adjacent splenule. Adrenal glands: Unremarkable. No nodules. Kidneys: No hydronephrosis or calculi. Bilateral renal sinus cysts. GI tract: No evidence of small-bowel obstruction. Colonic diverticulosis without acute diverticulitis. There is a large stool ball within the rectum with perirectal fat stranding. Vasculature: Abdominal aorta is normal in caliber. Moderate atherosclerotic disease. Lymph nodes: No lymphadenopathy. Peritoneum/Abdominal Wall: Foci of subcutaneous emphysema along the anterior abdominal wall may reflect sequelae of subcutaneous injection. Tiny fat containing umbilical hernia. No free air or significant free fluid. Pelvis: Decompressed urinary bladder with Larsen catheter in place. Bones: No acute or suspicious osseous abnormality. Multilevel degenerative changes of the spine. Osseous demineralization. IMPRESSION: 1. Findings consistent with stercoral colitis. 2. Multiple indeterminate hepatic lesions, the majority of which appear similar to prior CTs. Hyperenhancing foci could reflect flash filling hemangiomas. An outpatient liver protocol MRI may be considered for definitive evaluation if clinically indicated. Please note that all CT scans at this facility use dose modulation, iterative reconstruction, and/or weight-based dosing when appropriate to reduce radiation dose to as low as reasonably achievable. Dictated by Amanda Bonlila MD @ 05/03/2025 4:04:54 PM (Electronically Signed)
--- NOTE | 2025-05-03 13:17 | REH.PT ---
PT eval and treat received. Chart reviewed. Pt and dtr declined PT services today secondary to nausea.
--- NOTE | 2025-05-03 13:18 | PM.IMPN1 ---
Assessment and Plan Assessment and plan (1) Intractable vomiting: Problem comment: -dex and phenergan -will screen for intracranial mass -bladder is decompressed; bowel not overly constipated. -unclear what is causing the nausea (meds? underlying infection? brain source?) -will reimage; keep on fluids and antiemetics (but not scheduled) and discuss with general surgery Status: Acute (2) Acute diverticulitis: Problem comment: -CT abdomen showed colonic diverticulosis with colonic thickening and pericolonic fat stranding at the distal descending colon compatible with acute uncomplicated diverticulitis. -start Zosyn IV q.6 hours -IV fluids -pain management plus antiemetics. -consider consulting general surgeon at a.m. Status: Acute (3) Chronic constipation: Problem comment: -patient had been complaining of constipation for months, which might be related to her urinary retention and both could be secondary to a gynecological issue like a prolapse. a urinary catheter was inserted yesterday. -follow-up with OB Gyne/urologist as an outpatient. -son has already made an appt for after discharge with designer architect Status: Acute (4) Urinary retention: Problem comment: -patient had been complaining of constipation for months, which might be related to her urinary retention and both could be secondary to a gynecological issue like a prolapse. a urinary catheter was inserted yesterday. -follow-up with OB Gyne/urologist as an outpatient. Status: Acute (5) HTN (hypertension): Problem comment: Resume home meds Status: Acute (6) Tobacco use: Problem comment: Nicotine patch Status: Acute (7) Diverticulitis: Status: Acute Subjective Date Seen: 05/03/25 Interval history: Daily Progress Note - Hospital Medicine #: 2 CC: Nausea, intractable. Retching. Abdominal pain. Urinary retention. 24 HOUR UPDATE: Overnight has had waves of intractable nausea and vomiting. Zofran and Compazine have not helped. I ordered dexamethasone and Phenergan at 9:42 a.m. this morning which was modestly helpful. I ordered a PPI. Sounds like this kind of general abdominal discomfort and constipation symptoms have been going on for several months. Is only been in the last few days that she has become acutely uncomfortable requesting ER evaluation. This is really out of the ordinary for her. [facility] they attempted a manual disimpaction and a CT showed mild uncomplicated diverticulitis. She also was diagnosed with urinary retention. There was mention of a uterine mass but neither the family or patient can contribute to that history. I have a pelvic ultrasound from 2021 that was negative and the CT mentioned no pelvic organ pathology from yesterday. With her bladder decompressed via Larsen catheter, we tried an enema to help with her sense of fullness and constipation. There is no evidence of a bowel obstruction. She is a smoker. We had no head or chest imaging with this admission. On paper as it relates to her vital signs, labs and imaging really these are unremarkable for this amount of symptoms. The daughter did bring up a history of peptic ulcer disease that she got admitted for several years ago. Have ordered an IV PPI. Notable Labs, Micro, Rads, Interventions: Mild hypokalemia Minimally elevated CRP Unremarkable urine Objective: obtunded. barely opens her eyes to command. Vitals: see above Lungs: Clear. Cardiac: S1S2. Abdomen: soft. no guarding. Disposition/Potential discharge - TBD but probably return to home where she lives with her son. Today I spent 50 minutes seeing the patient, reviewing Expanse and EPIC notes/diagnostics, discussing the care plan with our care time that includes social work, PT/OT, pharmacy, RT, penitentiary and documenting my impressions and plan in the medical record. Exam Const: Vital Signs, click to edit/add: Vital Signs - 24 hr 05/02/25 17:09 05/02/25 17:35 05/02/25 20:09 Temperature 97.5 F L Pulse Rate Pulse Rate [Pulse Oximeter] 78 63 Respiratory Rate 20 19 Blood Pressure [Le ft Arm] Blood Pressure [Le ft Upper Arm] 150/83 H 116/51 L Pulse Oximetry 98 93 91 Oxygen Delivery Me thod Room Air Room Air 05/02/25 22:12 05/02/25 22:34 05/02/25 23:00 Temperature 97.7 F 98.1 F Pulse Rate 84 Pulse Rate [Pulse Oximeter] 70 84 Respiratory Rate 22 18 Blood Pressure [Le ft Arm] 144/119 H 135/68 Blood Pressure [Le ft Upper Arm] Pulse Oximetry 95 94 Oxygen Delivery Me thod Room Air Room Air 05/03/25 03:00 05/03/25 05:02 Temperature 98.4 F Pulse Rate Pulse Rate [Pulse Oximeter] 65 76 Respiratory Rate 16 20 Blood Pressure [Le ft Arm] 161/73 H Blood Pressure [Le ft Upper Arm] Pulse Oximetry 96 Oxygen Delivery Me thod Room Air Labs Labs: Laboratory Results - last 24 hr 05/02/25 05/02/25 05/03/25 17:35 17:50 05:53 WBC 10.42 9.41 RBC 4.67 4.12 Hgb 14.4 12.6 Hct 42.2 37.5 MCV 90 91 MCH 31 31 MCHC 34 34 RDW Coeff of Shira 12.4 Plt Count 211 185 Neut % (Auto) 90.8 H Lymph % (Auto) 6.0 L [place] % (Auto) 2.9 Eos % (Auto) 0.0 Baso % (Auto) 0.1 Neut # (Auto) 9.50 H Lymph # (Auto) 0.60 L [place] # (Auto) 0.30 Eos # (Auto) 0.00 Baso # (Auto) 0.01 Abs Immat Gran (auto) 0.02 Imm/Tot Granulo (auto) 0.2 Sodium 135 135 Potassium 3.5 L 3.3 L Chloride 94 L 99 Carbon Dioxide 27 25 Anion Gap 14 11 BUN 11 10 Creatinine 1.1 0.9 Estimated Creat Clear 26.86 32.53 Estimated GFR 49 63 Glucose 154 H 126 H Lactate 1.7 Calcium 9.7 8.4 Magnesium 2.5 Total Bilirubin 1.4 1.5 AST 34 27 ALT 26 22 Alkaline Phosphatase 97 76 POC Troponin I High Sensi 5.0 C-Reactive Protein 0.9 1.1 H Total Protein 7.3 6.1 Albumin 4.5 3.8 Lipase 79 Lab Acknowledgement 05/03/25 10:26 WBC RBC Hgb Hct MCV MCH MCHC RDW Coeff of Shira Plt Count Neut % (Auto) Lymph % (Auto) [place] % (Auto) Eos % (Auto) Baso % (Auto) Neut # (Auto) Lymph # (Auto) [place] # (Auto) Eos # (Auto) Baso # (Auto) Abs Immat Gran (auto) Imm/Tot Granulo (auto) Sodium Potassium Chloride Carbon Dioxide Anion Gap BUN Creatinine Estimated Creat Clear Estimated GFR Glucose Lactate Calcium Magnesium Total Bilirubin AST ALT Alkaline Phosphatase POC Troponin I High Sensi C-Reactive Protein Total Protein Albumin Lipase Lab Acknowledgement Test Added
[2025-05-03 13:43] LABS: HCO3 VBG 27 mmol/L (21-28); Lactate* 1.2 mmol/L (0.5-1.9); PCO2 VBG 41 mmHG (40-50); PO2 VBG 35.7 mmHG (25-47); pH VBG 7.430 (7.32-7.43)
[2025-05-03] MEDS: SCOPOLAMINE 1 MG/3 DAY PATCH 1 PATCH TRANSDERMA (14:34)
--- NOTE | 2025-05-03 16:06 | REH.OT ---
OT: Order received, chart reviewed with chloe attemptedx2. Patient unable to participate today due to significant nausea. Will reattempt tomorrow.
--- NOTE | 2025-05-03 19:41 | PC.NURSE ---
End of shift [id number] - At start of shift pt rousable to name and light shaking, noted to be in position while in bed and shifting from side to side. Able to follow direction and up with standby assistance to bedside commode. Pt unable to clearly verbalize pain, reported severe nausea as most pressing concern. Pt observed to retch multiple times, no emesis noted by RN. Pt given medication per MAR with mild improvement of pt symptoms. Enema given x2 per MD order with no BM. Pt reported pain while bearing down and stated she wasn't strong enough to get it out. Pt observed to sleep briefly during shift. By end of shift pt was able to converse with RN and verbalize needs/discomfort. Report pain in abdomen and nausea as a little better by end of shift. Family at bedside, updated. Larsen catheter noted to be patent and draining. Pt appears to be resting in bed at end of shift with call light within reach.
[2025-05-03] MEDS: ENOXAPARIN 40 MG/0.4 ML INJ SUBCUT (21:05)
[2025-05-03] MEDS: DOC/MIN OIL/MAG CIT/SOD PHOS 376 ML ENEMA PR (21:06)
[2025-05-04] VITALS (21 sets, daily range): BP systolic 100–186; BP diastolic 65–95; PULSE 45–80; RESP 14–20; TEMP 36.5–37.3; O2SAT 88–100
[2025-05-04] MEDS: PIPERACILLIN/TAZOBACTAM 3.375 GM in 0.9 % SODIUM CHLORIDE Mini-bag 100 ML IVPB (02:16)
[2025-05-04] MEDS: PROCHLORPERAZINE 5 MG/ML VIAL 10 MG IV (05:29)
--- NOTE | 2025-05-04 06:00 | CRLHL7_ITS ---
For Patients: As a result of the Century Cures Act, medical imaging exams and procedure reports are released immediately into your electronic medical record. You may view this report before your referring provider. If you have questions, please contact your health care provider. INDICATION: Intractable vomiting and fatigue COMPARISON: Upper abdomen images and abdomen and pelvis CT dated May 03, 2025 TECHNIQUE: : CT examination of the chest was performed following the uneventful intravenous administration of 75 cc of Isovue 3 7.Thin axial sections were obtained from the thoracic inlet through the lung bases. Please note that all CT scans at this facility use dose modulation, iterative reconstruction, and/or weight-based dosing when appropriate to reduce radiation dose to as low as reasonably achievable. FINDINGS: : HEART and MEDIASTINUM: The heart size is top-normal. There is no mediastinal or hilar adenopathy or mass. There is no pericardial effusion.Atherosclerotic vascular calcification LUNGS and PLEURAL SPACES: Minimal bibasilar atelectasis. Mild thickening of the interlobular septum best seen on coronal imaging consistent with mild interstitial edema.There is a 4 millimeter nodule in the right middle lobe which is probably benign. Consider 12 month follow-up noncontrast chest CT in high-risk individuals. No pleural effusion or pneumothorax VISUALIZED UPPER ABDOMEN: Perihepatic ascites. Intra and extrahepatic biliary ductal dilation. These findings were present on the recent abdomen and pelvis CT. The etiology of these findings is not visible on this chest CT. Please review the report of the abdomen and pelvis CT. OSSEOUS STRUCTURES: Age-appropriate appearance. No acute fracture or destructive process. TUBES and LINES: None. IMPRESSION: 1. Top-normal size heart. 2. Minimal basilar atelectasis. Mild interstitial edema. No pleural effusion or pneumothorax. 3. Benign-appearing right middle lobe nodule measuring about 4 millimeters. 4. Biliary ductal dilation and perihepatic ascites. Similar in appearance to the upper abdomen images of an abdomen and pelvis CT dated May 03, 2025. Please review the report of that study. Please note that all CT scans at this facility use dose modulation, iterative reconstruction, and/or weight-based dosing when appropriate to reduce radiation dose to as low as reasonably achievable. Dictated by Refugio Lima MD @ 05/04/2025 6:15:21 AM (Electronically Signed)
[2025-05-04 06:37] LABS: HCO3 VBG 26 mmol/L (21-28); Lactate* 1.6 mmol/L (0.5-1.9); PCO2 VBG 40 mmHG (40-50); PO2 VBG 41.8 mmHG (25-47); pH VBG 7.413 (7.32-7.43)
[2025-05-04 06:38] LABS: Hematocrit* 38.0 % (33.0-51.0); Hemoglobin* 12.6 gm/dL (12.0-16.0); Immature Granulocytes Abs Auto 0.02 K/uL (0.00-0.30); Immature Granulocytes Pct Auto 0.2 %; Mean Corpuscular HGB Conc 33 gm/dL (32-36); Mean Corpuscular Hemoglobin 30 pg (26-34); Mean Corpuscular Volume 91 fL (80-100); RDW Coefficient of Variation % 12.7 % (11.5-15.5); Red Blood Count* 4.16 m/uL (4.00-5.20); White Blood Count* 9.57 K/uL (4.50-11.00)
--- NOTE | 2025-05-04 06:38 | PM.GSCN ---
History of Present Illness Consult details Date Seen: 05/04/25 Consult date: 05/04/25 Narrative: Patient presented to the emergency department on 05/02 for abdominal pain, vomiting and constipation. Her family is at the bedside and very supportive. Per the patient she chronically suffers from constipation. She does take MiraLax senna and Dulcolax suppositories daily. On average she has a bowel movement every 5-6 days. She is currently complaining of persistent nausea, retching and a lower abdominal discomfort that comes in waves. She is feeling hungry, despite the nausea. She has a Larsen catheter in place, which was placed for urinary retention. She was initially seen at [facility] on 05/01. At that time she was diagnosed with diverticulitis and associated urinary retention. The Larsen was placed it was recommended she be admitted to the hospital. She declined and went home with oral antibiotics. She came to the emergency department at [facility] on 05/02 for the above symptoms. Her abdominal surgical history includes a cholecystectomy. She did have a cholecystostomy tube for short period time for this. She is a current smoker with a history of COPD. Review of Systems Status of ROS: Reports: 10 or more systems reviewed and unremarkable except as noted in History and below [facility] Medical History (Updated 05/04/25 @ 06:45 by Renate Quevedo MD) Uterine mass ?N85.8 - Other specified noninflammatory disorders of uterus (ICD-10) Tobacco use ?Z72.0 - Tobacco use (ICD-10) Subclavian vein stenosis, right ?I87.1 - Compression of vein (ICD-10) Subclavian arterial stenosis ?I77.1 - Stricture of artery (ICD-10) Pulmonary nodules ?R91.8 - Other nonspecific abnormal finding of lung field (ICD-10) Pneumonia, organism unspecified ?J18.9 - Pneumonia, unspecified organism (ICD-10) PAD (peripheral artery disease) ?I73.9 - Peripheral vascular disease, unspecified (ICD-10) Osteopenia ?M85.80 - Other specified disorders of bone density and structure, unspecified site (ICD-10) Osteoarthritis of right knee ?M17.11 - Unilateral primary osteoarthritis, right knee (ICD-10) Lumbar disc herniation ?M51.26 - Other intervertebral disc displacement, lumbar region (ICD-10) Hyperlipidemia ?E78.5 - Hyperlipidemia, unspecified (ICD-10) Hypercholesteremia ?E78.00 - Pure hypercholesterolemia, unspecified (ICD-10) HTN (hypertension) ?I10 - Essential (primary) hypertension (ICD-10) Endometrial mass ?N94.89 - Other specified conditions associated with female genital organs and menstrual cycle (ICD-10) DDD (degenerative disc disease) Asymmetric blood pressures ?I99.8 - Other disorder of circulatory system (ICD-10) ASCVD (arteriosclerotic cardiovascular disease) ?I25.10 - Atherosclerotic heart disease of chilkoot coronary artery without angina pectoris (ICD-10) Surgical History History of cataract removal with insertion of prosthetic lens ?Z98.49 - Cataract extraction status, unspecified eye (ICD-10) ?Z96.1 - Presence of intraocular lens (ICD-10) History of cholecystectomy ?Z90.49 - Acquired absence of other specified parts of digestive tract (ICD-10) History of laminectomy ?Z98.890 - Other specified postprocedural states (ICD-10) History of lumbar discectomy ?Z98.890 - Other specified postprocedural states (ICD-10) History of breast surgery ?Z98.890 - Other specified postprocedural states (ICD-10) History of total knee arthroplasty ?Z96.659 - Presence of unspecified artificial knee joint (ICD-10) Social History What is your current living situation?: I presently have a place to live Problems where you live: no known problems In the past 12 months, utilities in danger of being shut off: no In past 12 months, lack of transportation kept you from medical appts, meetings, work, or getting things needed for daily living: no In the past 12 mos, have been you worried that your food would run out before you had money to buy more?: never true In the past 12 mos, the food you bought just didn't last and you didn't have money to buy more?: never true Highest level of school completed/degree received: 12th grade, no diploma Smoking Status: Current every day smoker What tobacco products do you use: cigarettes Smoking packs per day: 1 Smoking cigarettes per day: 20.0 Years smoked: 70 Smoking pack-years: 70.00 Do you use any of these nicotine containing products: None Second hand tobacco smoke exposure: Yes How often do you have a drink containing alcohol: never AUDIT-C Alcohol total score: 0 Non-prescribed substance use: denies use Caffeine: Yes How often does anyone, including family, friends and others, physically hurt you: never How often does anyone, including family, friends and others, insult or talk down to you: never How often does anyone, including family, friends and others, threaten you with harm: never How often does anyone, including family, friends and others, scream or curse at you: never service: No Meds Home Medications and Allergies Home Medications ?Medication ?Instructions ?Recorded ?Confirmed ?Type potassium chloride 20 mEq 20 meq PO DAILY 02/06/22 05/03/25 History tablet,extended release(part/cryst) cholecalciferol (vitamin D3) 1 cap PO DAILY 02/01/23 05/03/25 History rosuvastatin 20 mg tablet (Crestor) 20 mg PO HS 07/21/24 05/03/25 History triamterene 37.5 1 cap PO DAILY 07/21/24 05/03/25 History mg-hydrochlorothiazide 25 mg capsule ondansetron 4 mg disintegrating 4 mg PO Q8H PRN nausea and 08/23/24 05/02/25 Rx tablet vomiting #10 tabs amoxicillin 875 mg-potassium 1 tab PO BID 05/03/25 05/03/25 History clavulanate 125 mg tablet Allergies Allergy/AdvReac Type Severity Reaction Status Date / Time No Known Drug Allergies Allergy Verified 09/02/24 19:57 Exam Narrative: Exam Narrative: General: Alert and oriented, discomfort but nontoxic Respiratory: Equal breath rise, maintained on room air CV: Well perfused Abdomen: Soft, some tenderness to palpation of the lower abdomen, no guarding or rebound. Nondistended : Larsen in place Const: Vital Signs, click to edit/add: Vital Signs - 24 hr 05/03/25 07:00 05/03/25 07:00 05/03/25 11:00 Temperature 98.1 F 98.7 F Pulse Rate 63 Pulse Rate [Pulse Oximeter] 71 76 Respiratory Rate 20 20 Blood Pressure [Le ft Arm] 135/64 92/70 Pulse Oximetry 94 93 Oxygen Delivery Me thod Room Air Room Air 05/03/25 15:00 05/03/25 18:14 05/03/25 20:00 Temperature 98.1 F 98.2 F Pulse Rate 64 Pulse Rate [Pulse Oximeter] 63 73 Respiratory Rate 20 18 Blood Pressure [Le ft Arm] 162/84 H 161/77 H Pulse Oximetry 96 97 Oxygen Delivery Me thod Room Air Room Air 05/03/25 23:00 05/04/25 00:24 05/04/25 03:36 Temperature 97.7 F Pulse Rate 50 L Pulse Rate [Pulse Oximeter] 59 L 62 Respiratory Rate 16 20 Blood Pressure [Le ft Arm] 152/73 H Pulse Oximetry 90 Oxygen Delivery Me thod Room Air 05/04/25 05:35 Temperature 98.2 F Pulse Rate Pulse Rate [Pulse Oximeter] 52 L Respiratory Rate 20 Blood Pressure [Le ft Arm] 158/74 H Pulse Oximetry 96 Oxygen Delivery Wi thod Room Air Results Labs Labs: Abnormal lab results 05/03/25 Range/Units 05:53 Potassium 3.3 L (3.6-5.1) mmol/L Glucose 126 H (60-115) mg/dL C-Reactive Protein 1.1 H (0.5-1.0) mg/dL Diabetes panel 05/03/25 Range/Units 05:53 Sodium 135 (135-149) mmol/L Potassium 3.3 L (3.6-5.1) mmol/L Chloride 99 (96-114) mmol/L Carbon Dioxide 25 (20-32) mmol/L BUN 10 (7-30) mg/dL Creatinine 0.9 (0.5-1.5) mg/dL Glucose 126 H (60-115) mg/dL Calcium 8.4 (8.4-10.6) mg/dL AST 27 (12-35) U/L ALT 22 (4-35) U/L Alkaline Phosphatase 76 (40-150) U/L Total Protein 6.1 (6.0-8.3) g/dL Albumin 3.8 (3.3-5.0) g/dL Calcium panel 05/03/25 Range/Units 05:53 Calcium 8.4 (8.4-10.6) mg/dL Albumin 3.8 (3.3-5.0) g/dL Pituitary panel 05/03/25 Range/Units 05:53 Sodium 135 (135-149) mmol/L Potassium 3.3 L (3.6-5.1) mmol/L Chloride 99 (96-114) mmol/L Carbon Dioxide 25 (20-32) mmol/L BUN 10 (7-30) mg/dL Creatinine 0.9 (0.5-1.5) mg/dL Glucose 126 H (60-115) mg/dL Calcium 8.4 (8.4-10.6) mg/dL Adrenal panel 05/03/25 Range/Units 05:53 Sodium 135 (135-149) mmol/L Potassium 3.3 L (3.6-5.1) mmol/L Chloride 99 (96-114) mmol/L Carbon Dioxide 25 (20-32) mmol/L BUN 10 (7-30) mg/dL Creatinine 0.9 (0.5-1.5) mg/dL Glucose 126 H (60-115) mg/dL Calcium 8.4 (8.4-10.6) mg/dL Total Bilirubin 1.5 (0.1-1.5) mg/dL AST 27 (12-35) U/L ALT 22 (4-35) U/L Alkaline Phosphatase 76 (40-150) U/L Total Protein 6.1 (6.0-8.3) g/dL Albumin 3.8 (3.3-5.0) g/dL All other labs normal. Imaging Abdomen CT scan report/results: report reviewed and image reviewed Progress Note:A&P Assessment and plan (1) Stercoral colitis: Status: Acute Assessment and Plan: Patient is an 85-year-old female with chronic constipation who now has evidence of developed stercoral colitis. On admission labs demonstrated resolution of her leukocytosis. No imaging was done at that evaluation. While in the hospital her labs continued to be within normal limits, but patient remained symptomatic. A CT scan was done 05/03 with NO evidence of acute diverticulitis, although there are a lot of diverticuli of the sigmoid, and large stool ball within the rectal canal with mild surrounding inflammatory changes. Disimpaction at the bedside attempted by nursing. Suppositories and enemas administered with no success. Recommendations are for disimpaction in the operating room. I reviewed with the patient and her family the procedure. We also discussed the possibility of injury to the rectum from the pressure of the stool, which can result in perforation and/or necrosis of the tissue. If there is evidence of this would plan to convert to an exploratory laparotomy with possible need for colectomy and end ostomy. All questions and concerns were addressed with patient agreeing to proceed to the operating room. Plan -OR for fecal disimpaction, possible exploratory laparotomy, possible colectomy, possible ostomy creation
[2025-05-04 06:45] LABS: Lymphocytes Absolute Auto 1.10 K/uL (0.90-2.90)
[2025-05-04 06:46] LABS: Slide Review Reflex No
--- NOTE | 2025-05-04 06:59 | PC.NURSE ---
[id number]: Patient cooperative with cares. A&Ox3. Denies chest pain. Larsen patent. NPO. Nausea improved since last shift but still ongoing. PRN medication administered for moderate relief. 2 very small BMs after enema and suppository. Awaiting surgery this am.
[2025-05-04 07:00] LABS: Albumin* 3.7 g/dL (3.3-5.0); Chloride* 99 mmol/L (96-114); Potassium* 3.2 mmol/L (3.6-5.1); Sodium* 134 mmol/L (135-149)
[2025-05-04 07:03] LABS: Alanine Aminotransferase* 25 U/L (4-35); Alkaline Phosphatase* 67 U/L (40-150); Anion Gap 12 mEq/L (7-15); Aspartate Amino Transferase* 36 U/L (12-35); Bilirubin Total* 1.8 mg/dL (0.1-1.5); Blood Urea Nitrogen* 12 mg/dL (7-30); Calcium* 8.1 mg/dL (8.4-10.6); Carbon Dioxide* 23 mmol/L (20-32); Creatinine* 0.8 mg/dL (0.5-1.5); Est. Creatinine Clearance* 32.53; Estimated Glomerular Filt Rate 72 ml/min; Glucose* 110 mg/dL (60-115); Total Protein* 5.9 g/dL (6.0-8.3)
[2025-05-04 07:22] LABS: NT Pro B Type NatriureticPept* 1500 pg/mL (See Note)
--- NOTE | 2025-05-04 07:39 | PM.GSPRC ---
Operative Note Date of procedure: 05/04/25 Pre-op diagnosis: Stercoral colitis Post-op diagnosis: Same Type of Procedure: 1. Fecal disimpaction 2. Proctoscopy Indications: Patient is an 85-year-old female who presented to the emergency department with abdominal pain, nausea and retching. Evidence on workup of stercoral colitis. With failure of conservative measures at bedside recommendations were for exam under anesthesia and fecal disimpaction in the operating room. Risks and benefits of the procedure were discussed at length with the patient. All questions and concerns were addressed with patient agreeing to proceed. Procedure Description: After discussing the risks and benefits of the procedure, the patient signed informed consent.? The patient was brought to the operating room and placed on the operating table in lithotomy position.? Care was taken to pad the patient's pressure points.?? The patient was then given sedation by anesthesia.? The operative site was then prepped and draped.? A time-out was then performed. Digital rectal exam was performed with large stool ball present within the rectal canal. This was removed manually in pieces. Multiple enemas with then performed with saline and a bulb suction. A large amount of stool was removed from the rectal canal. Digital rectal exam was again performed with no stool palpated. Anoscopy was performed with no evidence of any ulceration or fissures to the anus. Rectal mucosa was healthy in appearance with no areas of bleeding or necrosis. A proctoscopy was performed to 15 cm within the rectal canal. No additional stool was encountered with mucosa healthy in appearance. The operative field was cleansed with Hibiclens. The Larsen remained in place. ? The patient was then woken and transported to the recovery area in stable condition. ? The patient tolerated the procedure well. Findings: Large rectal stool ball within rectal canal. No evidence of ischemia or necrosis of the underlying mucosa. Anesthesia: MAC Surgeon: Renate Quevedo MD Estimated blood loss (mL): 0 Condition: stable Disposition: PACU
[2025-05-04] MEDS: SODIUM CHLORIDE 0.9 % (FLUSH) 10 ML SYRINGE 5 ML IVF (09:24)
--- NOTE | 2025-05-04 09:31 | P.ANES_ITS ---
Anesthesia Charges Start Date/Time Anesthesia Start Date: 05/04/25 Anesthesia Start Time: 07:11 Stop Date/Time Anesthesia Stop Date: 05/04/25 Anesthesia Stop Time: 07:50 Summary Extremes of Age - Over 70 or under 1: MDA Coding CPT Codes CPT Codes: ANESTH ANORECTAL SURGERY - 31587 ([id number]) AA - ANESTHESIA PERF BY ANESGST, P3 - PATIENT W/SEVERE SYS DISEASE, QK - CNP 2-4 CNCRNT ANES PROC, QX - NATURALIST SVC W/ MD MED DIRECTION Additional Codes: Summary - Extremes of Age - Over 70 or under 1: MDA ([id number])
--- NOTE | 2025-05-04 09:31 | W.ANESCHARGE ---
Anesthesia Charges Start Date/Time Anesthesia Start Date: 05/04/25 Anesthesia Start Time: 07:11 Stop Date/Time Anesthesia Stop Date: 05/04/25 Anesthesia Stop Time: 07:50 Summary Extremes of Age - Over 70 or under 1: MDA Coding CPT Codes CPT Codes: ANESTH ANORECTAL SURGERY - 62901 ([id number]) AA - ANESTHESIA PERF BY ANESGST, P3 - PATIENT W/SEVERE SYS DISEASE, QK - SALES REPRESENTATIVE WIRE ROPE 2-4 CNCRNT ANES PROC, QX - DIRECTOR OF PROGRAMMING SVC W/ MD MED DIRECTION Additional Codes: Summary - Extremes of Age - Over 70 or under 1: MDA ([id number])
[2025-05-04] MEDS: ONDANSETRON 2 MG/ML inj 4 MG IVP (09:32)
--- NOTE | 2025-05-04 10:09 | P.ANES_ITS ---
Anesthesia Charges Start Date/Time Anesthesia Start Date: 05/04/25 Anesthesia Start Time: 07:11 Stop Date/Time Anesthesia Stop Date: 05/04/25 Anesthesia Stop Time: 07:50 Summary Extremes of Age - Over 70 or under 1: PAYER SPECIALIST Coding CPT Codes CPT Codes: ANESTH ANORECTAL SURGERY - 61036 ([id number]) P3 - PATIENT W/SEVERE SYS DISEASE, QK - NURSE SEXUAL ASSAULT 2-4 CNCRNT ANES PROC, QX - PAYER SPECIALIST SVC W/ MD MED DIRECTION Additional Codes: Summary - Extremes of Age - Over 70 or under 1: PAYER SPECIALIST ([id number])
--- NOTE | 2025-05-04 10:09 | W.ANESCHARGE ---
Anesthesia Charges Start Date/Time Anesthesia Start Date: 05/04/25 Anesthesia Start Time: 07:11 Stop Date/Time Anesthesia Stop Date: 05/04/25 Anesthesia Stop Time: 07:50 Summary Extremes of Age - Over 70 or under 1: GRE TUTOR Coding CPT Codes CPT Codes: ANESTH ANORECTAL SURGERY - 29816 ([id number]) P3 - PATIENT W/SEVERE SYS DISEASE, QK - BENCH WORKER 2-4 CNCRNT ANES PROC, QX - GRE TUTOR SVC W/ MD MED DIRECTION Additional Codes: Summary - Extremes of Age - Over 70 or under 1: GRE TUTOR ([id number])
[2025-05-04] MEDS: POTASSIUM CHLORIDE 10 MEQ, LIDOCAINE 1 % 1 ML in 0.9 % SODIUM CHLORIDE 100 ml 100 ML 106 MEQ IVPB ×3 (12:32→15:26)
--- NOTE | 2025-05-04 13:18 | REH.OT ---
OT: Therapy to hold due to medical status. Will monitor status and eval when medically appropriate.
[2025-05-04] MEDS: METOCLOPRAMIDE 10 MG TABLET PO ×2 (13:59→18:05)
--- NOTE | 2025-05-04 14:16 | P.IMPN_ITS ---
Assessment and Plan Assessment and plan (1) Stercoral colitis: Problem comment: - no concerning mucosal findings on proctoscopy in the OR 05/04/2025 Status: Acute (2) Chronic constipation: Problem comment: -noted for months -follow-up with OB Gyne/urologist as an outpatient (history of prolapse) -son has already made an appt for after discharge with picker Status: Acute (3) Urinary retention: Problem comment: - likely secondary to constipation, Larsen placed upon admission and removed after disimpaction 05/04/2025 Status: Acute (4) Acute diverticulitis: Problem comment: - CT abdomen: colonic diverticulosis with colonic thickening and pericolonic fat stranding at the distal descending colon compatible with acute uncomplicated diverticulitis - Zosyn initiated on admission, discontinued after disimpaction in the OR 05/04. Afebrile Status: Acute (5) Intractable vomiting: Problem comment: - improved 05/04/2025, but still nauseated - imaging negative of head and abdomen pelvis - add Reglan at , IV PPI daily - negative troponin and no acute findings on EKG Status: Acute (6) Tobacco use: Problem comment: Nicotine patch Status: Acute (7) HTN (hypertension): Problem comment: - continue home meds when tolerating p.o. Status: Acute Plan - per above, home with son when tolerating po intake - daughter updated bedside, questions answered Subjective Date Seen: 05/04/25 Interval history: Jennifer was admitted to the hospital on 05/02/25 for acute on chronic abdominal pain with significant nausea and constipation. Bedside disimpaction was unsuccessful; she ultimately went to the OR this morning with Dr. Quevedo of general surgery for a disimpaction and proctoscopy, overall reassuring findings Postoperatively, she remains nauseated with difficulty tolerating po intake. No acute findings on CTs of head, chest, or abdomen/pelvis. EKG baseline with negative troponin x2. Blood cultures remain negative. Besides nausea, Jennifer has no other concerns for hospitalist team. Exam Narrative: Exam Narrative: GEN: Alert and laying in bed, appears to not be feeling well but nontoxic HEENT: EOMIs bilaterally, no scleral icterus CV: RRR, No concerning murmurs R: LCTA bilaterally without concerning wheezing Ab: Soft, tolerates palpation Ext: wwp, no concerning edema Skin: No concerning skin lesions or rashes on exposed skin Neuro: No focal deficits on limited exam Psych: Appropriate Const: Vital Signs, click to edit/add: Vital Signs - 24 hr 05/03/25 15:00 05/03/25 18:14 05/03/25 20:00 Temperature 98.1 F 98.2 F Pulse Rate 64 Pulse Rate [Pulse Oximeter] 63 73 Respiratory Rate 20 18 Blood Pressure [Le ft Arm] 162/84 H 161/77 H Pulse Oximetry 96 97 Oxygen Delivery Me thod Room Air Room Air Oxygen Flow Rate 05/03/25 23:00 05/04/25 00:24 05/04/25 03:36 Temperature 97.7 F Pulse Rate 50 L Pulse Rate [Pulse Oximeter] 59 L 62 Respiratory Rate 16 20 Blood Pressure [Le ft Arm] 152/73 H Pulse Oximetry 90 Oxygen Delivery Me thod Room Air Oxygen Flow Rate 05/04/25 05:35 05/04/25 07:55 05/04/25 08:01 Temperature 98.2 F 97.7 F Pulse Rate Pulse Rate [Pulse Oximeter] 52 L 48 L 74 Respiratory Rate 20 14 16 Blood Pressure [Le ft Arm] 158/74 H 100/73 124/85 Pulse Oximetry 96 100 100 Oxygen Delivery Me thod Room Air OxyMask OxyMask Oxygen Flow Rate 5 5 05/04/25 09:39 05/04/25 09:39 Temperature Pulse Rate 51 L Pulse Rate [Pulse Oximeter] 51 L Respiratory Rate Blood Pressure [Le ft Arm] Pulse Oximetry Oxygen Delivery Me thod Oxygen Flow Rate Labs Labs: Laboratory Results - last 24 hr 05/04/25 05/04/25 06:16 11:53 WBC 9.57 RBC 4.16 Hgb 12.6 Hct 38.0 MCV 91 MCH 30 MCHC 33 RDW Coeff of Shira 12.7 Plt Count 157 Neut % (Auto) 81.6 H Lymph % (Auto) 11.4 L [place] % (Auto) 6.8 Eos % (Auto) 0.0 Baso % (Auto) 0.0 Neut # (Auto) 7.80 H Lymph # (Auto) 1.10 [place] # (Auto) 0.70 Eos # (Auto) 0.00 Baso # (Auto) 0.00 Abs Immat Gran (auto) 0.02 Imm/Tot Granulo (auto) 0.2 VBG pH 7.413 VBG pCO2 40 VBG pO2 41.8 VBG HCO3 26 Sodium 134 L Potassium 3.2 L Chloride 99 Carbon Dioxide 23 Anion Gap 12 BUN 12 Creatinine 0.8 Estimated Creat Clear 32.53 Estimated GFR 72 Glucose 110 Lactate 1.6 Calcium 8.1 L Magnesium 2.3 Ferritin 69.3 Total Bilirubin 1.8 H AST 36 H ALT 25 Alkaline Phosphatase 67 Troponin I 0.02 0.02 C-Reactive Protein 0.5 NT-Pro-B Natriuret Pep 1500 H Total Protein 5.9 L Albumin 3.7 Lipase 171
--- NOTE | 2025-05-04 15:41 | PC.NURSE ---
shift note: Pt arrives from surgery w/ OUTSIDE INDUSTRIAL SALES REPRESENTATIVE bedside. Pt is difficult to arouse and bradycardic. OUTSIDE INDUSTRIAL SALES REPRESENTATIVE administers ephedrine. Pt HR increases & pt is arousable ; opening eyes and verbally responsive. Pt on 5L OxyMask when first arrives to the floor. Pt denies pain and nausea within first hour post-op. Pt starts to report nausea after JELLO. RN administers anti-emetic- See EMAR. @930 Pt has bradycardic episode and OUTSIDE INDUSTRIAL SALES REPRESENTATIVE is called; more epinephrine given by OUTSIDE INDUSTRIAL SALES REPRESENTATIVE. Pt HR returns to WNL for the rest of shift. Larsen catheter removed. Pt off O2 gradually throughout shift; O2 90% or above on RA, unless moving, O2 drops between 85-89% Pt has x1 incontinent episode ; uses commode. Bladder scan done; no noted urine content. Pt uses commode second time w/ small void output. Pt reports epigastric and chest pain. EKG performed; MD notified. Troponin obtained by lab. Pt passing gas. Family is bedside and supportive. MD and surgeon in to see pt bedside . Education provided on medications, surgery, procedures, pain mgmt, and cardiac monitoring.
[2025-05-04] MEDS: ACETAMINOPHEN INJ 1,000 MG/100 ML VIAL 400 MG IVPB (16:43)
--- NOTE | 2025-05-04 19:30 | PC.NURSE ---
Shift note [id number]: The pt has been c/o abdominal pain; unable to rate her pain; IV Tylenol was given - the pt stated it didn't help; but the pt appeared without any acute distress, the was sitting in the chair without any distress. The pt has been urinating about 100 ml of urine x2 this shift. Denied nausea or vomiting; no fever noted.
[2025-05-04] MEDS: ROSUVASTATIN CALCIUM 10 MG TABLET 20 MG PO (21:09)
[2025-05-04] MEDS: SENNOSIDES/DOCUSATE TABLET 2 TAB PO (21:10)
[2025-05-04] MEDS: ENOXAPARIN 40 MG/0.4 ML INJ SUBCUT (21:10)
[2025-05-04] MEDS: MORPHINE 4 MG/ML INJ IVP (21:26)
[2025-05-05] VITALS (7 sets, daily range): BP systolic 160–187; BP diastolic 76–95; PULSE 62–77; RESP 17–20; TEMP 36.9–37.5; O2SAT 94–95
--- NOTE | 2025-05-05 06:40 | PC.NURSE ---
Shift note ([id number]): Patient oriented x3. Stand by assist for ambulation. Rated epigastric ?cramping? 4-12/09. IV to left AC discontinued due to bruising and puffiness. New IV placed in left hand. Scopolamine patch present behind right ear. ?
[2025-05-05 07:29] LABS: Hematocrit* 35.9 % (33.0-51.0); Hemoglobin* 12.0 gm/dL (12.0-16.0); Immature Granulocytes Abs Auto 0.02 K/uL (0.00-0.30); Immature Granulocytes Pct Auto 0.2 %; Mean Corpuscular HGB Conc 33 gm/dL (32-36); Mean Corpuscular Hemoglobin 30 pg (26-34); Mean Corpuscular Volume 91 fL (80-100); RDW Coefficient of Variation % 12.7 % (11.5-15.5); Red Blood Count* 3.95 m/uL (4.00-5.20); White Blood Count* 9.43 K/uL (4.50-11.00)
[2025-05-05 07:30] LABS: Lymphocytes Absolute Auto 1.60 K/uL (0.90-2.90); Slide Review Reflex No
[2025-05-05 07:45] LABS: Albumin* 3.5 g/dL (3.3-5.0); Chloride* 99 mmol/L (96-114); Sodium* 133 mmol/L (135-149)
[2025-05-05 07:48] LABS: Alanine Aminotransferase* 26 U/L (4-35); Alkaline Phosphatase* 67 U/L (40-150); Anion Gap 10 mEq/L (7-15); Aspartate Amino Transferase* 33 U/L (12-35); Bilirubin Total* 1.4 mg/dL (0.1-1.5); Blood Urea Nitrogen* 9 mg/dL (7-30); Calcium* 8.3 mg/dL (8.4-10.6); Carbon Dioxide* 24 mmol/L (20-32); Creatinine* 0.7 mg/dL (0.5-1.5); Est. Creatinine Clearance* 32.53; Estimated Glomerular Filt Rate 85 ml/min; Glucose* 92 mg/dL (60-115); Potassium* 3.0 mmol/L (3.6-5.1); Total Protein* 5.7 g/dL (6.0-8.3)
[2025-05-05] MEDS: METOCLOPRAMIDE 10 MG TABLET PO (08:59)
[2025-05-05] MEDS: PANTOPRAZOLE SODIUM 40 MG INJ IVP (09:06)
--- NOTE | 2025-05-05 10:10 | PM.GSPN ---
Subjective Subjective Date Seen: 05/05/25 Interval history: Patient is doing well this morning. Denies any abdominal pain. Has passed a few small pieces of stool. Continues to pass gas. Tolerating a regular diet. Exam Narrative: Exam Narrative: Abdomen: Soft, nontender and nondistended Const: Vital Signs, click to edit/add: Vital Signs - 24 hr 05/04/25 11:15 05/04/25 12:00 05/04/25 13:00 Temperature 98.0 F Pulse Rate Pulse Rate [Pulse Oximeter] 62 66 74 Respiratory Rate 18 18 Blood Pressure [Le ft Arm] 151/86 H 166/84 H 137/65 Pulse Oximetry 92 98 96 Oxygen Delivery Me thod Room Air Nasal Cannula Nasal Cannula Oxygen Flow Rate 1 1 05/04/25 14:00 05/04/25 16:00 05/04/25 16:00 Temperature 97.8 F 97.8 F Pulse Rate Pulse Rate [Pulse Oximeter] 74 74 74 Respiratory Rate 18 16 Blood Pressure [Le ft Arm] 151/66 H 154/73 H Pulse Oximetry 97 97 Oxygen Delivery Me thod Room Air Room Air Oxygen Flow Rate 05/04/25 19:38 05/05/25 00:41 05/05/25 02:25 Temperature 99.2 F 99.1 F Pulse Rate 71 Pulse Rate [Pulse Oximeter] 67 62 Respiratory Rate 17 17 Blood Pressure [Le ft Arm] 164/76 H 160/76 H Pulse Oximetry 95 94 Oxygen Delivery Me thod Room Air Room Air Oxygen Flow Rate 05/05/25 04:08 05/05/25 07:00 05/05/25 08:00 Temperature 99.5 F 99.5 F Pulse Rate 77 Pulse Rate [Pulse Oximeter] 67 70 Respiratory Rate 20 18 Blood Pressure [Le ft Arm] 182/81 H 187/95 H Pulse Oximetry 94 95 Oxygen Delivery Me thod Room Air Room Air Oxygen Flow Rate 05/05/25 08:48 Temperature Pulse Rate Pulse Rate [Pulse Oximeter] 70 Respiratory Rate 18 Blood Pressure [Le ft Arm] Pulse Oximetry Oxygen Delivery Me thod Oxygen Flow Rate Progress Note:A&P Assessment and plan (1) Stercoral colitis: Status: Acute Assessment and Plan: Patient continues to do well. No concerns from a surgical perspective. She does suffer from chronic constipation, recommend she continue to take daily fiber, stool softeners and increase her water intake. Plan Follow-up with general surgery as needed.
[2025-05-05] MEDS: POTASSIUM BICARB 25 MEQ EFFERVESCENT TAB PO ×3 (10:22→13:07)
[2025-05-05] MEDS: SENNOSIDES/DOCUSATE TABLET 2 TAB PO (10:22)
[2025-05-05] MEDS: SODIUM CHLORIDE 0.9 % (FLUSH) 10 ML SYRINGE 5 ML IVF ×2 (10:33→17:06)
--- NOTE | 2025-05-05 13:15 | PM.DS1 ---
DS: Providers Provider Date Seen: 05/05/25 Date of admission: 05/02/25 19:49 Primary care physician: Not a Local Provider Admitting Clinician: Valorie Monroe MD Consults: General Surgery, OT, PT Attending Physician on discharge: Miri Dangelo MD Date of Discharge: 05/05/25 DS: Diagnosis Discharge Diagnosis (1) Stercoral colitis: Status: Acute Problem details: - no concerning mucosal findings on proctoscopy in the OR 05/04/2025 - treated with IV Zosyn until disimpaction in the OR, then did not require further antibiotic therapy (2) Intractable vomiting: Status: Acute Problem details: - improved 05/04/2025, but still nauseated - imaging negative of head and abdomen pelvis - add Reglan at , IV PPI daily - negative troponin and no acute findings on EKG - baseline and tolerating po intake on 05/05 (3) Chronic constipation: Status: Acute Problem details: -noted for months -follow-up with OB Gyne/urologist as an outpatient (history of prolapse) -son has already made an appt for after discharge with face painter (4) Urinary retention: Status: Acute Problem details: - likely secondary to constipation, Larsen placed upon admission and removed after disimpaction 05/04/2025, patient then back to baseline (5) Tobacco use: Status: Acute Problem details: Nicotine patch (6) Hypokalemia: Status: Acute Problem details: - likely combination of GI losses, iatrogenic, poor po intake - tolerated replacement (IV and po) - will have this rechecked with PCP on 05/06 DS: Summary Hospital Course Hospital Course: Jennifer was admitted to the hospital on 05/02/25 for acute on chronic abdominal pain with significant nausea and constipation. Bedside disimpaction was unsuccessful; she ultimately went to the OR on 05/[address] Quevedo of general surgery for a disimpaction and proctoscopy, overall reassuring findings Postoperatively, she remained nauseated with difficulty tolerating po intake. No acute findings on CTs of head, chest, or abdomen/pelvis. EKG baseline with negative troponin x2. No arrhythmias noted on telemetry throughout stay. Blood cultures remained negative. Was ultimately able to tolerate p.o. intake on 05/05/2025 and requesting discharge home. Continued to have hypokalemia, tolerated oral and IV replacement. Afternoon potassium noted to be 2.8; she was then given another IV bump +oral replacement. She will have her potassium rechecked with her PCP tomorrow, hold her hydrochlorothiazide in the meantime. Status at Discharge Functional status at discharge: independent ambulation Overall status at discharge: patient is progressing back to baseline Time Spent with Patient Time attestation: Total time spent providing and/or coordinating discharge services: Time spent: Greater than 30 minutes Specific discharge activities: Family updates, patient Education, medication reconciliation Exam Narrative: Exam Narrative: GEN: Alert and sitting up in bed, answering questions appropriately and requesting discharge home HEENT: EOMIs bilaterally, no scleral icterus CV: RRR R: LCTA bilaterally Ab: Soft and tolerates palpation Ext: wwp, no concerning edema Skin: No concerning lesions on exposed skin Neuro: Nonfocal Psych: Appropriate Const: Vital Signs, click to edit/add: Vital Signs - 24 hr 05/04/25 14:00 05/04/25 16:00 05/04/25 16:00 Temperature 97.8 F 97.8 F Pulse Rate Pulse Rate [Pulse Oximeter] 74 74 74 Respiratory Rate 18 16 Blood Pressure [Le ft Arm] 151/66 H 154/73 H Pulse Oximetry 97 [facility] 05/04/25 19:38 05/05/25 00:41 05/05/25 02:25 Temperature 99.2 F 99.1 F Pulse Rate 71 Pulse Rate [Pulse Oximeter] 67 62 Respiratory Rate 17 17 Blood Pressure [Le ft Arm] 164/76 H 160/76 H Pulse Oximetry 95 94 [facility] Room Air 05/05/25 04:08 05/05/25 07:00 05/05/25 08:00 Temperature 99.5 F 99.5 F Pulse Rate 77 Pulse Rate [Pulse Oximeter] 67 70 Respiratory Rate 20 18 Blood Pressure [Le ft Arm] 182/81 H 187/95 H Pulse Oximetry 94 95 [facility] Room Air 05/05/25 08:48 05/05/25 12:00 Temperature 98.4 F Pulse Rate Pulse Rate [Pulse Oximeter] 70 68 Respiratory Rate 18 18 Blood Pressure [Le ft Arm] 179/84 H Pulse Oximetry 95 [facility] DS: Data Data Completed and Pending Labs on day of discharge: Labs from last 24 hours 05/05/25 05/04/25 05/04/25 07:20 14:20 06:16 WBC 9.43 RBC 3.95 L Hgb 12.0 Hct 35.9 MCV 91 MCH 30 MCHC 33 RDW Coeff of Shira 12.7 Plt Count 157 Neut % (Auto) 74.8 H Lymph % (Auto) 17.3 L [place] % (Auto) 7.2 Eos % (Auto) 0.3 Baso % (Auto) 0.2 Neut # (Auto) 7.10 H Lymph # (Auto) 1.60 [place] # (Auto) 0.70 Eos # (Auto) 0.03 Baso # (Auto) 0.02 Abs Immat Gran (auto) 0.02 Imm/Tot Granulo (auto) 0.2 Sodium 133 L Potassium 3.0 L Chloride 99 Carbon Dioxide 24 Anion Gap 10 BUN 9 Creatinine 0.7 Estimated Creat Clear 32.53 Estimated GFR 85 Glucose 92 Calcium 8.3 L Magnesium 2.2 Total Bilirubin 1.4 AST 33 ALT 26 Alkaline Phosphatase 67 Total Protein 5.7 L Albumin 3.5 TSH 1.270 Lab Acknowledgement Test Added Preliminary micro results at discharge 05/02/25 18:05 Blood Culture - Preliminary Blood NO GROWTH AFTER 48 HOURS 05/02/25 17:50 Blood Culture - Preliminary Blood NO GROWTH AFTER 48 HOURS Discharge Plan Discharge Disposition: Home, Self-Care Date of Admission: 05/02/25 19:49 Attending Provider on Discharge: Miri Dangelo Primary Care Provider: Provider,Not a Local Condition: Improved Anticipated Discharge Date/Time: 05/05/25 11:20 Discharge Medications: Continued triamterene-hydrochlorothiazid 37.5-25 mg capsule 1 cap PO DAILY rosuvastatin [Crestor] 20 mg tablet 20 mg PO HS ondansetron 4 mg tablet,disintegrating 4 mg PO Q8H PRN (Reason: nausea and vomiting) Qty: 10 0RF potassium chloride 20 mEq tablet,ER particles/crystals 20 meq PO DAILY Patient Comments: TAKE ONE TABLET BY MOUTH EVERY DAY cholecalciferol (vitamin D3) 1 cap PO DAILY Discontinued amoxicillin-pot clavulanate 875-125 mg tablet 1 tab PO BID Rx Instructions: Take 1 Tablet (875 mg of amoxicillin) by mouth two times a day for 10 days. Discharge Orders: Discharge Order (Routine); Ordered 05/05/25 Ordered By: Miri Dangelo Patient Education: Triamterene/Hydrochlorothiazide (By mouth), Potassium Chloride (By mouth), Ondansetron (By mouth), Rosuvastatin (By mouth), Vitamin D (By mouth), Diverticulitis (DC), Hypokalemia (DC) Additional Instructions: HOLD YOUR Triamterene-HCTZ tomorrow and have your potassium checked with your PCP. Stay on your daily Potassium, good idea to have a banana and potatoes daily as well to keep this up. Activity Level: Activity as Tolerated Discharge Diet: Regular Follow Up Appointments: Provider,Not a Local [Primary Care Provider, Family Practice] Referral Note: call and make appt with PCP next week, BMP at that time Forms: MyHealth Info Instructions
[2025-05-05 15:02] LABS: Potassium* 2.8 mmol/L (3.6-5.1)
[2025-05-05] MEDS: POTASSIUM BICARB 25 MEQ EFFERVESCENT TAB 50 MEQ PO (15:49)
[2025-05-05] MEDS: POTASSIUM CHLORIDE 10 MEQ, LIDOCAINE 1 % 1 ML in 0.9 % SODIUM CHLORIDE 100 ml 100 ML 106 MEQ IVPB (16:05)
--- NOTE | 2025-05-05 16:08 | PC.NURSE ---
Nursing Care Hours: [id number] Pt this shift calm and cooperative. Alert with forgetfulness. SBA with walker. Nausea with breakfast, treated per eMAR. Effective. Pt ate small amount at lunch and tolerated well. Pt adult son/caregiver wanting to recheck potassium prior to leaving. Pt agreeable. Discharge instructions went over with pt and son. Lab pending prior to removing IV and assisting to vehicle. Discussed ways to replace potassium and SS to report.
--- NOTE | 2025-05-05 16:45 | REH.OT ---
OT: Eval had been attempted by another OT on staff this am with patient unavailable. Patient with other discipline when reattempted pm, then returned and patient had discharged to home. Per PT, recommendation was for C PT, recommend involve C OT for home safety and cognition based on reports of noting forgetfulness during hospitalization.
--- NOTE | 2025-05-05 18:46 | PC.NURSE ---
Pt will follow up with PCP; Son will be in touch with her PCP tomorrow for follow up and labs. IV DC'd cath tip intact. Prior RN educated pt on DC instructions. All DC instructions went into folder and pt carried out @ [id number].
== END 2025-05-05 17:32 | disposition home or self-care (01) | DRG 392 ==
LOC: ED 19:39 → MEDSURG 05-03 05:39
PROVIDERS: Family Medicine; Surgery; Admitting Provider Student in an Organized Health Care Education/Training Program; Emergency Provider Family Medicine; Visit Provider Student in an Organized Health Care Education/Training Program
PROC: 0DDP8ZX Extraction of Rectum, Via Natural or Artificial Opening Endoscopic, Diagnostic (ICD-10-PCS; principal; 2025-05-04 06:30)
DX: K52.89 Other specified noninfective gastroenteritis and colitis (principal); K59.09 Other constipation; K57.30 Diverticulosis of large intestine without perforation or abscess without bleeding; R33.8 Other retention of urine; E87.6 Hypokalemia; R11.2 Nausea with vomiting, unspecified; I44.0 Atrioventricular block, first degree; J44.9 Chronic obstructive pulmonary disease, unspecified; F17.210 Nicotine dependence, cigarettes, uncomplicated; I10 Essential (primary) hypertension; I25.10 Atherosclerotic heart disease of native coronary artery without angina pectoris; E78.5 Hyperlipidemia, unspecified
CPT/HCPCS: 00902; 36415; 70450; 71260; 74018; 74177; 80053; 82728; 82803; 83605; 83690; 83735; 83880; 84132; 84443; 84484; 85025; 85027; 86140; 87040; 93005; 94761; 96361; 96374; 96375; 97116; 97161; 97530; 99100; 99285; A9270; J0131; J0780; J1100; J1650; J1885; J2270; J2371; J2405; J2470; J2543; J2550; J2704; J3480; J3490; J7030; Q9967